=== PATIENT | male | born 1940 | race Caucasian/White ===

== ENCOUNTER 2018-02-26 13:05 | Emergency (ER) | payer MEDICARE, OTHER, SELFPAY | END 2018-02-26 18:33 | disposition home or self-care (01) | PROVIDERS: Emergency Provider Emergency Medicine; PCP Internal Medicine; Visit Provider Emergency Medicine | DX: Z45.02 Encounter for adjustment and management of automatic implantable cardiac defibrillator (principal) | CPT/HCPCS: 36000; 71020; 71046; 80053; 82962; 83880; 84484; 85025; 85610; 85730; 93005; 93010; 99058; 99285 ==

== ENCOUNTER → 2018-07-02 11:11 | Outpatient (CLI) | payer MEDICARE, OTHER, SELFPAY ==
[2018-07-02 12:42] LABS: Alanine Aminotransferase 20 IU/L (21-72); Albumin 4.4 g/dL (3.5-5.0); Albumin Globulin Ratio 1.5 (1.0-2.8); Alkaline Phosphatase 51 U/L (38-126); Aspartate Aminotransferase 18 IU/L (17-59); BUN Creatinine Ratio 22.7 (6-22); Blood Urea Nitrogen 34 mg/dL (9-20); Calcium 9.5 mg/dL (8.4-10.2); Carbon Dioxide 32 mmol/L (22-32); Chloride 99 mmol/L (98-107); Estimated Glomerular Filt Rate 45.1 mL/min (>60); Globulin 2.9 g/dL (1.7-4.1); Glucose 122 mg/dL (80-110); HEMOLYSIS 26 (0-50); Potassium 4.9 mmol/L (3.4-5.1); Sodium 142 mmol/L (137-145); Total Protein 7.3 g/dL (6.3-8.2)
[2018-07-02 13:06] LABS: Thyroid Stimulating Hormone 1.72 uIU/mL (0.47-4.68)
== END ==
PROVIDERS: PCP Internal Medicine; Visit Provider Internal Medicine Cardiovascular Disease
DX: I25.5 Ischemic cardiomyopathy (principal); R53.83 Other fatigue
CPT/HCPCS: 36415; 80053; 84443

== ENCOUNTER → 2018-07-06 11:05 | Outpatient (CLI) | payer MEDICARE, OTHER, SELFPAY ==
[2018-07-06 13:16] LABS: Prostate Specific Antigen 0.154 ng/mL (0.10-4.00)
== END ==
PROVIDERS: PCP Internal Medicine; Visit Provider Internal Medicine
DX: Z12.5 Encounter for screening for malignant neoplasm of prostate (principal)
CPT/HCPCS: 36415; 84153; G0103

== ENCOUNTER → 2018-09-04 16:08 | Outpatient (CLI) | payer MEDICARE, OTHER, SELFPAY ==
[2018-09-04 17:26] LABS: BUN Creatinine Ratio 23.6 (6-22); Blood Urea Nitrogen 33 mg/dL (9-20); Calcium 10.4 mg/dL (8.4-10.2); Carbon Dioxide 28 mmol/L (22-32); Chloride 97 mmol/L (98-107); Estimated Glomerular Filt Rate 48.8 mL/min (>60); Glucose 149 mg/dL (80-110); HEMOLYSIS 47 (0-50); Potassium 5.3 mmol/L (3.4-5.1); Sodium 143 mmol/L (137-145)
[2018-09-04 17:55] LABS: Thyroid Stimulating Hormone 1.32 uIU/mL (0.47-4.68)
== END ==
PROVIDERS: PCP Internal Medicine; Visit Provider Internal Medicine Cardiovascular Disease
DX: R53.83 Other fatigue (principal); I25.5 Ischemic cardiomyopathy
CPT/HCPCS: 36415; 80048; 84443

== ENCOUNTER → 2018-10-29 09:45 | Outpatient (CLI) | payer MEDICARE, OTHER, SELFPAY ==
[2018-10-29 11:13] LABS: Glucose 75 mg/dL (80-110)
[2018-10-30 15:48] LABS: C Peptide < 0.10 ng/mL (0.80-3.85)
== END ==
PROVIDERS: PCP Internal Medicine; Visit Provider Internal Medicine
DX: E11.9 Type 2 diabetes mellitus without complications (principal); I48.91 Unspecified atrial fibrillation
CPT/HCPCS: 36415; 82947; 84681

== ENCOUNTER 2018-11-15 10:21 | Emergency (ER) | payer MEDICARE, OTHER, SELFPAY ==
--- NOTE | 2018-11-15 10:28 | PC.NURSE ---
SPO2 at 89 and speaking in full sentences
[2018-11-15 10:47] VITALS: BP 110/68; PULSE 100; RESP 20; TEMP 36.5; O2SAT 95; BMI 27.8
[2018-11-15 11:30] VITALS: BP 118/99; PULSE 66; RESP 20; O2SAT 99
--- NOTE | 2018-11-15 11:45 | ED.SOB ---
HPI - SOB/Dyspnea General Chief Complaint: Shortness of Breath/Dyspnea Stated Complaint: difficulty breathing Time Seen by Provider: 11/15/18 11:17 Source: patient and family Mode of arrival: ambulatory Limitations: no limitations History of Present Illness Patient complains of shortness of breath for the last year after having an ablation for atrial fibrillation and ending amiodarone. He states that over the last several days, he has noticed that his shortness of breath is worse, both with lying down and with walking. He has not had any fever, but has had a mild cough. Patient denies any chest pain or abdominal pain. No nausea. Patient denies any back pain or headache. No new medications. He states that he has a defibrillator which was firing quite a bit, prior to his ablation, and so the sensitivity was adjusted. Now, patient states, it never fires. He states he is supposed to see his reaming machine tender in a few days to discuss a medication to be on for his atrial fibrillation, which has continued since the ablation. Related Data Home Medications Medication Instructions Recorded Confirmed FELODIPINE (Felodipine ER) 5 mg PO Q DAY #0 04/19/07 LISINOPRIL (Zestril / Prinivil) 20 mg PO Q DAY #0 01/20/08 [NOVOLOG] #0 01/20/08 [CQ10 ENZYME] 100 mg #0 07/15/12 rosuvastatin [Crestor] 10 mg PO QDAY #0 07/15/12 aspirin 81 mg OR Q DAY #0 12/11/17 clopidogrel [Plavix] 75 mg OR Q DAY #0 12/11/17 Previous Rx's Medication Instructions Recorded furosemide [Lasix] 60 mg PO BID #10 tab 11/15/18 Allergies Allergy/AdvReac Type Severity Reaction Status Date / Time amoxicillin Allergy Mild DIARRHEA Unverified 02/18/18 12:15 naproxen Allergy Mild DIARRHEA Unverified 02/18/18 12:15 Penicillins [PENICILLINS] Allergy Unknown Unverified 02/18/18 12:15 Review of Systems Review of Systems All systems reviewed & are unremarkable except as noted in HPI and below Constitutional Denies chills, Denies fever(s), Denies lethargy and Denies weakness Eyes Denies change in vision, Denies eye discharge, Denies irritation and Denies loss of vision ENT Ears, Nose, Mouth, and Throat: Denies change in voice, Denies neck pain and Denies sore throat Cardiovascular Denies chest pain, Denies irregular heart rhythm, Denies lightheadedness, Denies palpitations, Reports dyspnea, Reports dyspnea on exertion and Denies orthopnea Respiratory Denies cough, Reports dyspnea, Reports dyspnea on exertion and Denies wheezing Gastrointestinal Gastrointestinal: Denies abdominal pain, Denies change in bowel habits, Denies diarrhea, Denies nausea and Denies vomiting Genitourinary Denies hematuria, Denies flank pain, Denies urinary incontinence and Denies urinary urgency Musculoskeletal Denies neck pain Integumentary/Breasts Denies pruritus, Denies erythema, Denies rash and Denies wounds Neurologic Denies confusion, Denies loss of vision and Denies weakness Psychiatric Denies anxiety, Denies confusion, Denies depression, Denies homicidal ideation and Denies suicidal ideation Endocrine Denies palpitations Hematologic/Lymphatic Denies easy bruising Allergic/Immunologic Denies wheezing [facility] Medical History Obstructive sleep apnea of adult (Chronic) Primary insomnia (Chronic) Hyperlipidemia (Chronic) Hypertension (Chronic) Ischemic cardiomyopathy (Chronic) Obesity (Chronic) Snoring (Chronic) Type 2 diabetes mellitus (Chronic) Social History Smoking Status: Former smoker Exam Initial Vital Signs Initial Vital Signs: Vital Signs Temperature 97.7 F 11/15/18 10:47 Pulse Rate 100 H 11/15/18 10:47 Respiratory Rate 20 11/15/18 10:47 Blood Pressure 110/68 11/15/18 10:47 Pulse Oximetry 95 11/15/18 10:47 Const General: cooperative and well developed Nutritional Appearance: well nourished Orientation: alert, awake, oriented x3 and not confused [facility] Head: normocephalic and atraumatic Ears: external ears normal Nose: external nose normal and No nasal discharge Face and sinus: face symmetric and No dry mucous membranes Mouth: oral mucosae normal and moist mucous membranes Teeth and gingiva: dentition normal Eyes General: appearance normal, both eyes and all related structures Eyelids: eyelids normal Conjunctivae: conjunctivae normal Sclera: sclerae normal Pupils: PERRL EOM: EOM intact bilaterally Neck Neck: normal visual inspection, trachea midline, No lymphadenopathy, No midline deformity and No JVD Lymphatic: No lymphedema Chest Chest: normal inspection of the chest Resp Effort & Inspection: normal respiratory effort, able to speak in complete sentences, no respiratory distress and no use of accessory muscles Auscultation: clear to auscultation bilaterally, no rales, no rhonchi and no wheezes Cardio Rate: regular rate Rhythm: regular rhythm Heart Sounds: no click, no gallops, no murmurs and no rubs Pulses: normal peripheral pulses GI Inspection: non-distended Palpation: soft, no hepatosplenomegaly, No guarding, No pulsatile mass and No tender Auscultation: normal bowel sounds Back/Spine/Pelvis Back: No CVA tenderness Cervical Spine: cervical ROM normal and No pain with cervical ROM Thoracic/Lumbar Spine: thoracic and lumbar spine normal to inspection Skin General: no rashes or lesions noted, No jaundice and No petechiae Neuro General: alert, oriented x3, gait normal and no focal motor deficits Speech: speech normal Extrem General: full ROM, no clubbing, cyanosis or edema, no pedal edema and no calf tenderness Psych Appearance: well kempt Mental Status: mental status grossly normal Attitude: cooperative Thought Content: normal and suicidality Judgment: judgment good Course Course Narrative: Patient was worked up with labs, EKG, and chest x-ray, and found have an elevated BNP with some degree of pulmonary vascular congestion on chest x-ray. He was treated with 40 mg of Lasix IV in the emergency department, and did respond well with copious urination. Patient was found to be able to ambulate to and from the bathroom without difficulty, and without laboring of respirations. I did feel the patient stable for discharge home. I have discussed with patient and his family the need for an increased dose of his Lasix until he sees his reaming machine tender on Friday. At that point in time, they can evaluate whether this increased dose should be ongoing, or whether another plan is better. Patient and family are agreeable to this plan. Orders Ordered: ED Orders 11/15/18 11:45 XR chest 1V Stat B Type Natriuretic Peptide Stat Complete Blood Count AUTO DIFF Stat Comprehensive Metabolic Panel Stat Troponin & CK Cardiac Panel Stat EKG-12 Lead Stat Discontinued Medications Furosemide (Lasix) 40 mg IV NOW ONE Stop: 11/15/18 13:38 Last Admin: 11/15/18 13:54 Dose: 40 mg Vital Signs - 8 hr 11/15/18 13:10 11/15/18 14:00 11/15/18 14:30 Pulse Rate 85 93 H Respiratory Rate 21 19 Blood Pressure [Left Arm] 104/63 115/86 103/83 Pulse Oximetry 97 100 MDM - SOB/Dyspnea Medical Records Attestation: I reviewed the patient's medical records. Lab Data Attestation: I reviewed the patient's lab results. Result diagrams: 11/15/18 11:45 11/15/18 11:45 Lab Results 11/15/18 11/15/18 Range/Units 11:45 11:45 WBC 10.1 (4.5-11.0) X10^3/uL RBC 4.71 (4.5-5.9) X10^6/uL Hgb 14.5 (13.5-17.5) g/dL Hct 44.8 (41-53) % MCV 95.2 (80-100) fL MCH 30.7 (26-34) PG MCHC 32.3 (30-36) % RDW 14.3 (11.6-14.8) % Plt Count 263 (150-400) X10^3/uL Neut % (Auto) 69.5 (50-75) % Lymph % (Auto) 17.0 L (25-40) % [place] % (Auto) 11.6 (3-14) % Eos % (Auto) 0.9 L (2-4) % Baso % (Auto) 1.0 (0-2) % Neut # (Auto) 7000 (0841-2286) /uL Sodium 141 (137-145) mmol/L Potassium 5.1 (3.4-5.1) mmol/L Chloride 101 (98-107) mmol/L Carbon Dioxide 29 (22-32) mmol/L BUN 29 H (9-20) mg/dL Creatinine 1.60 H (0.66-1.25) mg/dL Estimated GFR 41.8 L (>60) mL/min BUN/Creatinine Ratio 18.1 (6-22) Glucose 291 H (80-110) mg/dL Calcium 9.4 (8.4-10.2) mg/dL Total Bilirubin 0.8 (0.2-1.3) mg/dL AST 20 (17-59) IU/L ALT 32 (21-72) IU/L Alkaline Phosphatase 70 (38-126) U/L Total Creatine Kinase 53 L (55-170) U/L CK-MB (CK-2) TNP CK-MB (CK-2) Rel Index TNP Troponin I 0.018 (0.01-0.034) ng/mL B-Natriuretic Peptide 1020 H (<100) Total Protein 7.8 (6.3-8.2) g/dL Albumin 4.5 (3.5-5.0) g/dL Globulin 3.3 (1.7-4.1) g/dL Albumin/Globulin Ratio 1.4 (1.0-2.8) Imaging Data Chest x-ray: Attestation: I personally reviewed and interpreted this imaging study as follows: My impression: Pulmonary vascular congestion Radiologist's impression: PROCEDURE: XR CHEST 1V INDICATIONS: dyspnea TECHNIQUE: One view of the chest was acquired. COMPARISON: [facility], , CHEST 2 VIEW, 02/26/2018, 13:09. FINDINGS: Surgical changes and devices: A left chest wall dual-lead AICD appears similar to the prior study. Lungs and pleura: There is a new small right pleural effusion with increased right basilar opacities compatible with atelectasis or developing consolidation. There is only vascular prominence suggestive of mild edema. Mediastinum: Mediastinal contours appear unchanged. Heart size is enlarged. Bones and chest wall: No suspicious bony lesions. Overlying soft tissues appear unremarkable. IMPRESSION: 1. Small right pleural effusion with right basilar opacities consistent with atelectasis or developing consolidation. 2. Pulmonary vascular prominence suggestive of mild edema. Dictated by: Amish Sanches M.D. on 11/15/2018 at 12:29 Approved by: Amish Sanches M.D. on 11/15/2018 at 12:31 ECG Data Attestation: I personally reviewed and interpreted this ECG as follows: (See below) Interpretation: Twelve lead EKG performed on November 15, 2018, at 11:20 a.m., as follows: Irregular ventricular rhythm with a rate of 108 beats per minute P waves undetectable QRS duration 152 millisecond QTC interval [address] T wave changes In summary, atrial fibrillation with rapid ventricular response; right bundle-branch block; inferior KS of indeterminate age; moderate T-wave abnormality; no STEMI. In summary, abnormal EKG as interpreted by ED MD. MDM Narrative Medical decision making narrative: I did not find evidence of an acute KS in this patient, and he has a follow-up appointment with his reaming machine tender in a few days. We have discussed that he should return to the emergency department, should his shortness of breath worse of, or should he develop chest pain. Discharge Plan Departure Patient Disposition: Home Clinical Impression: Congestive heart failure Discharge Date/Time: 11/15/18 15:42 Interventions: ED Discharge Assessment Last Done: 11/15/18 15:17 Instructions: DI for Heart Failure Activity Restrictions/Additional Instructions: Your labs showed that your heart function has weakened a bit. This is the cause of your feeling of shortness of breath. We will have you take a diuretic (water pill) to help with your fluid overload and shortness of breath. You will need to follow up with your doctor to discuss further treatment if your symptoms continue. Prescriptions: New furosemide [Lasix] 40 mg tablet 60 mg PO BID Qty: 10 RF: 0 Discontinued furosemide [Lasix] 20 MG tablet 20 mg PO QDAY 3 Days Qty: 0 RF: 0 No Action FELODIPINE (Felodipine ER) 5 mg PO Q DAY Qty: 0 RF: 0 LISINOPRIL (Zestril / Prinivil) 20 mg PO Q DAY Qty: 0 RF: 0 [NOVOLOG] Qty: 0 RF: 0 rosuvastatin [Crestor] 10 MG tablet 10 mg PO QDAY Qty: 0 RF: 0 [CQ10 ENZYME] 100 mg Qty: 0 RF: 0 aspirin 81 MG tablet,delayed release (DR/EC) 81 mg OR Q DAY Qty: 0 RF: 0 clopidogrel [Plavix] 75 MG tablet 75 mg OR Q DAY Qty: 0 RF: 0 Referrals: Garfield Dove MD [Primary Care Provider] - (Please follow up within the next week.)
--- NOTE | 2018-11-15 11:49 | ED_ITS ---
HPI - SOB/Dyspnea General Chief Complaint: Shortness of Breath/Dyspnea Stated Complaint: difficulty breathing Time Seen by Provider: 11/15/18 11:17 Source: patient and family Mode of arrival: ambulatory Limitations: no limitations History of Present Illness Patient complains of shortness of breath for the last year after having an ablation for atrial fibrillation and ending amiodarone. He states that over the last several days, he has noticed that his shortness of breath is worse, both with lying down and with walking. He has not had any fever, but has had a mild cough. Patient denies any chest pain or abdominal pain. No nausea. Patient denies any back pain or headache. No new medications. He states that he has a defibrillator which was firing quite a bit, prior to his ablation, and so the sensitivity was adjusted. Now, patient states, it never fires. He states he is supposed to see his multiplex operator in a few days to discuss a medication to be on for his atrial fibrillation, which has continued since the ablation. Related Data Home Medications Medication Instructions Recorded Confirmed FELODIPINE (Felodipine ER) 5 mg PO Q DAY #0 04/19/07 LISINOPRIL (Zestril / Prinivil) 20 mg PO Q DAY #0 01/20/08 [NOVOLOG] #0 01/20/08 [CQ10 ENZYME] 100 mg #0 07/15/12 rosuvastatin [Crestor] 10 mg PO QDAY #0 07/15/12 aspirin 81 mg OR Q DAY #0 12/11/17 clopidogrel [Plavix] 75 mg OR Q DAY #0 12/11/17 Previous Rx's Medication Instructions Recorded furosemide [Lasix] 60 mg PO BID #10 tab 11/15/18 Allergies Allergy/AdvReac Type Severity Reaction Status Date / Time amoxicillin Allergy Mild DIARRHEA Unverified 02/18/18 12:15 naproxen Allergy Mild DIARRHEA Unverified 02/18/18 12:15 Penicillins [PENICILLINS] Allergy Unknown Unverified 02/18/18 12:15 Review of Systems Review of Systems All systems reviewed & are unremarkable except as noted in HPI and below Constitutional Denies chills, Denies fever(s), Denies lethargy and Denies weakness Eyes Denies change in vision, Denies eye discharge, Denies irritation and Denies loss of vision ENT Ears, Nose, Mouth, and Throat: Denies change in voice, Denies neck pain and Denies sore throat Cardiovascular Denies chest pain, Denies irregular heart rhythm, Denies lightheadedness, Denies palpitations, Reports dyspnea, Reports dyspnea on exertion and Denies orthopnea Respiratory Denies cough, Reports dyspnea, Reports dyspnea on exertion and Denies wheezing Gastrointestinal Gastrointestinal: Denies abdominal pain, Denies change in bowel habits, Denies diarrhea, Denies nausea and Denies vomiting Genitourinary Denies hematuria, Denies flank pain, Denies urinary incontinence and Denies urinary urgency Musculoskeletal Denies neck pain Integumentary/Breasts Denies pruritus, Denies erythema, Denies rash and Denies wounds Neurologic Denies confusion, Denies loss of vision and Denies weakness Psychiatric Denies anxiety, Denies confusion, Denies depression, Denies homicidal ideation and Denies suicidal ideation Endocrine Denies palpitations Hematologic/Lymphatic Denies easy bruising Allergic/Immunologic Denies wheezing [facility] Medical History Obstructive sleep apnea of adult (Chronic) Primary insomnia (Chronic) Hyperlipidemia (Chronic) Hypertension (Chronic) Ischemic cardiomyopathy (Chronic) Obesity (Chronic) Snoring (Chronic) Type 2 diabetes mellitus (Chronic) Social History Smoking Status: Former smoker Exam Initial Vital Signs Initial Vital Signs: Vital Signs Temperature 97.7 F 11/15/18 10:47 Pulse Rate 100 H 11/15/18 10:47 Respiratory Rate 20 11/15/18 10:47 Blood Pressure 110/68 11/15/18 10:47 Pulse Oximetry 95 11/15/18 10:47 Const General: cooperative and well developed Nutritional Appearance: well nourished Orientation: alert, awake, oriented x3 and not confused [facility] Head: normocephalic and atraumatic Ears: external ears normal Nose: external nose normal and No nasal discharge Face and sinus: face symmetric and No dry mucous membranes Mouth: oral mucosae normal and moist mucous membranes Teeth and gingiva: dentition normal Eyes General: appearance normal, both eyes and all related structures Eyelids: eyelids normal Conjunctivae: conjunctivae normal Sclera: sclerae normal Pupils: PERRL EOM: EOM intact bilaterally Neck Neck: normal visual inspection, trachea midline, No lymphadenopathy, No midline deformity and No JVD Lymphatic: No lymphedema Chest Chest: normal inspection of the chest Resp Effort & Inspection: normal respiratory effort, able to speak in complete sentences, no respiratory distress and no use of accessory muscles Auscultation: clear to auscultation bilaterally, no rales, no rhonchi and no wheezes Cardio Rate: regular rate Rhythm: regular rhythm Heart Sounds: no click, no gallops, no murmurs and no rubs Pulses: normal peripheral pulses GI Inspection: non-distended Palpation: soft, no hepatosplenomegaly, No guarding, No pulsatile mass and No tender Auscultation: normal bowel sounds Back/Spine/Pelvis Back: No CVA tenderness Cervical Spine: cervical ROM normal and No pain with cervical ROM Thoracic/Lumbar Spine: thoracic and lumbar spine normal to inspection Skin General: no rashes or lesions noted, No jaundice and No petechiae Neuro General: alert, oriented x3, gait normal and no focal motor deficits Speech: speech normal Extrem General: full ROM, no clubbing, cyanosis or edema, no pedal edema and no calf tenderness Psych Appearance: well kempt Mental Status: mental status grossly normal Attitude: cooperative Thought Content: normal and suicidality Judgment: judgment good Course Course Narrative: Patient was worked up with labs, EKG, and chest x-ray, and found have an elevated BNP with some degree of pulmonary vascular congestion on chest x-ray. He was treated with 40 mg of Lasix IV in the emergency department , and did respond well with copious urination. Patient was found to be able to ambulate to and from the bathroom without difficulty, and without laboring of respirations. I did feel the patient stable for discharge home. I have discussed with patient and his family the need for an increased dose of his Lasix until he sees his multiplex operator on Friday. At that point in time, they can evaluate whether this increased dose should be ongoing, or whether another plan is better. Patient and family are agreeable to this plan. Orders Ordered: ED Orders 11/15/18 11:45 XR chest 1V Stat B Type Natriuretic Peptide Stat Complete Blood Count AUTO DIFF Stat Comprehensive Metabolic Panel Stat Troponin & CK Cardiac Panel Stat EKG-12 Lead Stat Discontinued Medications Furosemide (Lasix) 40 mg IV NOW ONE Stop: 11/15/18 13:38 Last Admin: 11/15/18 13:54 Dose: 40 mg Vital Signs - 8 hr 11/15/18 13:10 11/15/18 14:00 11/15/18 14:30 Pulse Rate 85 93 H Respiratory Rate 21 19 Blood Pressure [Left Arm] 104/63 115/86 103/83 Pulse Oximetry 97 100 MDM - SOB/Dyspnea Medical Records Attestation: I reviewed the patient's medical records. Lab Data Attestation: I reviewed the patient's lab results. Result diagrams: 11/15/18 11:45 11/15/18 11:45 Lab Results 11/15/18 11/15/18 Range/Units 11:45 11:45 WBC 10.1 (4.5-11.0) X10^3/uL RBC 4.71 (4.5-5.9) X10^6/uL Hgb 14.5 (13.5-17.5) g/dL Hct 44.8 (41-53) % MCV 95.2 (80-100) fL MCH 30.7 (26-34) PG MCHC 32.3 (30-36) % RDW 14.3 (11.6-14.8) % Plt Count 263 (150-400) X10^3/uL Neut % (Auto) 69.5 (50-75) % Lymph % (Auto) 17.0 L (25-40) % [place] % (Auto) 11.6 (3-14) % Eos % (Auto) 0.9 L (2-4) % Baso % (Auto) 1.0 (0-2) % Neut # (Auto) 7000 (4125-6424) /uL Sodium 141 (137-145) mmol/L Potassium 5.1 (3.4-5.1) mmol/L Chloride 101 (98-107) mmol/L Carbon Dioxide 29 (22-32) mmol/L BUN 29 H (9-20) mg/dL Creatinine 1.60 H (0.66-1.25) mg/dL Estimated GFR 41.8 L (>60) mL/min BUN/Creatinine Ratio 18.1 (6-22) Glucose 291 H (80-110) mg/dL Calcium 9.4 (8.4-10.2) mg/dL Total Bilirubin 0.8 (0.2-1.3) mg/dL AST 20 (17-59) IU/L ALT 32 (21-72) IU/L Alkaline Phosphatase 70 (38-126) U/L Total Creatine Kinase 53 L (55-170) U/L CK-MB (CK-2) TNP CK-MB (CK-2) Rel Index TNP Troponin I 0.018 (0.01-0.034) ng/mL B-Natriuretic Peptide 1020 H (<100) Total Protein 7.8 (6.3-8.2) g/dL Albumin 4.5 (3.5-5.0) g/dL Globulin 3.3 (1.7-4.1) g/dL Albumin/Globulin Ratio 1.4 (1.0-2.8) Imaging Data Chest x-ray: Attestation: I personally reviewed and interpreted this imaging study as follows: My impression: Pulmonary vascular congestion Radiologist's impression: PROCEDURE: XR CHEST 1V INDICATIONS: dyspnea TECHNIQUE: One view of the chest was acquired. COMPARISON: [facility], , CHEST 2 VIEW, 02/26/2018, 13:09. FINDINGS: Surgical changes and devices: A left chest wall dual-lead AICD appears similar to the prior study. Lungs and pleura: There is a new small right pleural effusion with increased right basilar opacities compatible with atelectasis or developing consolidation. There is only vascular prominence suggestive of mild edema. Mediastinum: Mediastinal contours appear unchanged. Heart size is enlarged. Bones and chest wall: No suspicious bony lesions. Overlying soft tissues appear unremarkable. IMPRESSION: 1. Small right pleural effusion with right basilar opacities consistent with atelectasis or developing consolidation. 2. Pulmonary vascular prominence suggestive of mild edema. Dictated by: Amish Sanches M.D. on 11/15/2018 at 12:29 Approved by: Amish Sanches M.D. on 11/15/2018 at 12:31 ECG Data Attestation: I personally reviewed and interpreted this ECG as follows: (See below) Interpretation: Twelve lead EKG performed on November 15, 2018, at 11:20 a.m., as follows: Irregular ventricular rhythm with a rate of 108 beats per minute P waves undetectable QRS duration 152 millisecond QTC interval [address] T wave changes In summary, atrial fibrillation with rapid ventricular response; right bundle- branch block; inferior CO of indeterminate age; moderate T-wave abnormality; no STEMI. In summary, abnormal EKG as interpreted by ED MD. MDM Narrative Medical decision making narrative: I did not find evidence of an acute [place] in this patient, and he has a follow-up appointment with his multiplex operator in a few days. We have discussed that he should return to the emergency department, should his shortness of breath worse of, or should he develop chest pain. Discharge Plan Departure Patient Disposition: Home Clinical Impression: Congestive heart failure Discharge Date/Time: 11/15/18 15:42 Interventions: ED Discharge Assessment Last Done: 11/15/18 15:17 Instructions: DI for Heart Failure Activity Restrictions/Additional Instructions: Your labs showed that your heart function has weakened a bit. This is the cause of your feeling of shortness of breath. We will have you take a diuretic (water pill) to help with your fluid overload and shortness of breath. You will need to follow up with your doctor to discuss further treatment if your symptoms continue. Prescriptions: New furosemide [Lasix] 40 mg tablet 60 mg PO BID Qty: 10 RF: 0 Discontinued furosemide [Lasix] 20 MG tablet 20 mg PO QDAY 3 Days Qty: 0 RF: 0 No Action FELODIPINE (Felodipine ER) 5 mg PO Q DAY Qty: 0 RF: 0 LISINOPRIL (Zestril / Prinivil) 20 mg PO Q DAY Qty: 0 RF: 0 [NOVOLOG] Qty: 0 RF: 0 rosuvastatin [Crestor] 10 MG tablet 10 mg PO QDAY Qty: 0 RF: 0 [CQ10 ENZYME] 100 mg Qty: 0 RF: 0 aspirin 81 MG tablet,delayed release (DR/EC) 81 mg OR Q DAY Qty: 0 RF: 0 clopidogrel [Plavix] 75 MG tablet 75 mg OR Q DAY Qty: 0 RF: 0 Referrals: Garfield Dove MD [Primary Care Provider] - (Please follow up within the next week.)
[2018-11-15 11:55] LABS: Add Manual Diff / Slide Review NO; Eosinophils Percent Auto 0.9 % (2-4); Hematocrit 44.8 % (41-53); Hemoglobin 14.5 g/dL (13.5-17.5); Mean Corpuscular HGB Conc 32.3 % (30-36); Mean Corpuscular Hemoglobin 30.7 PG (26-34); Mean Corpuscular Volume 95.2 fL (80-100); Monocytes Percent Auto 11.6 % (3-14); Neutrophils Absolute Auto 7000 /uL (1500-7000); Neutrophils Percent Auto 69.5 % (50-75); Platelet Count 263 X10^3/uL (150-400); Red Blood Cell Count 4.71 X10^6/uL (4.5-5.9); Red Cell Distribution Width 14.3 % (11.6-14.8); White Blood Cell Count 10.1 X10^3/uL (4.5-11.0)
[2018-11-15 12:03] VITALS: BP 118/78; PULSE 86; RESP 21; O2SAT 98
[2018-11-15 12:05] LABS: Alanine Aminotransferase 32 IU/L (21-72); Albumin 4.5 g/dL (3.5-5.0); Albumin Globulin Ratio 1.4 (1.0-2.8); Alkaline Phosphatase 70 U/L (38-126); Aspartate Aminotransferase 20 IU/L (17-59); BUN Creatinine Ratio 18.1 (6-22); Bilirubin Total 0.8 mg/dL (0.2-1.3); Blood Urea Nitrogen 29 mg/dL (9-20); Calcium 9.4 mg/dL (8.4-10.2); Carbon Dioxide 29 mmol/L (22-32); Chloride 101 mmol/L (98-107); Creatine Kinase 53 U/L (55-170); Estimated Glomerular Filt Rate 41.8 mL/min (>60); Globulin 3.3 g/dL (1.7-4.1); Glucose 291 mg/dL (80-110); HEMOLYSIS < 15 (0-50); Potassium 5.1 mmol/L (3.4-5.1); Sodium 141 mmol/L (137-145); Total Protein 7.8 g/dL (6.3-8.2)
[2018-11-15 12:12] LABS: B Type Natriuretic Peptide 1020 (<100)
[2018-11-15 12:17] LABS: Troponin I 0.018 ng/mL (0.01-0.034)
[2018-11-15 13:10] VITALS: BP 104/63; PULSE 85; RESP 21; O2SAT 97
[2018-11-15] MEDS: FUROSEMIDE 40 MG/4 ML VIAL IV (13:54)
[2018-11-15 14:00] VITALS: BP 115/86; PULSE 93; RESP 19; O2SAT 100
[2018-11-15 14:30] VITALS: BP 103/83
== END 2018-11-15 15:42 | disposition home or self-care (01) ==
PROVIDERS: Emergency Provider Emergency Medicine; PCP Internal Medicine
DX: L02.413 Cutaneous abscess of right upper limb (principal)
CPT/HCPCS: 36415; 36591; 71045; 80053; 82550; 83880; 84484; 85025; 93005; 93041; 99283; J1940

== ENCOUNTER 2018-11-18 13:41 | Inpatient (IN) | payer MEDICARE, OTHER, SELFPAY ==
[2018-11-18] VITALS (16 sets, daily range): BP systolic 105–159; BP diastolic 60–134; PULSE 84–152; RESP 18–35; TEMP 36.5–36.8; O2SAT 93–100; BMI 28.7
--- NOTE | 2018-11-18 13:43 | DI.RAD.S_ITS ---
PROCEDURE: XR CHEST 1V INDICATIONS: defib keeps firing TECHNIQUE: One view of the chest was acquired. COMPARISON: [facility], , CHEST 2 VIEW, 02/26/2018, 13:09. [facility], , XR CHEST 1V, 11/15/2018, 12:08. FINDINGS: Surgical changes and devices: Cardiac pacemaker is noted with leads in expected position. Lungs and pleura: Probable small bilateral effusions. Mildly increased pulmonary sclerae. No pneumothorax. Mediastinum: Mediastinal contours appear normal. Heart size is is moderately increased. Bones and chest wall: No suspicious bony lesions. Overlying soft tissues appear unremarkable. IMPRESSION: Moderate cardiomegaly with mildly increased pulmonary vascularity and probable small pleural effusions suggesting mild CHF. Dictated by: Evelia Burr M.D. on 11/18/2018 at 13:59 Approved by: Evelia Burr M.D. on 11/18/2018 at 14:02
--- NOTE | 2018-11-18 13:45 | ED.ARRPALP ---
HPI - Arrhythmia/Palpitations General Chief Complaint: Chest Pain Stated Complaint: Defib shocking Time Seen by Provider: 11/18/18 13:42 Source: patient and old records reviewed Mode of arrival: EMS Limitations: no limitations History of Present Illness HPI narrative: This is an 78-year-old male comes to the emergency department with complaint of multiple shocks from his defibrillator states he has probably had 14 or 15 shocks so far today. 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 Patient has a history with his defer later. He states it has been many years since he has had a shock he did have an ablation on November 11 [facility] and they stopped his amiodarone. They did not place him on any other medications as replacement. They were stopping the amiodarone secondary to pulmonary issues. Patient states that he has had problems where his defibrillator has shocked inappropriately. Patient states that he has been a little bit of short of breath in the last couple days. He was here a couple days ago for evaluation. He denies any chest pressure or pain except with shock. Patient denies any nausea, no vomiting. He has not been diaphoretic. He states this started while he was getting out of the shower this afternoon. Patient has not had any major swelling in his lower extremities. Related Data Home Medications Medication Instructions Recorded Confirmed lisinopril 40 mg PO QAM #0 01/20/08 11/18/18 coenzyme Q10 [CoQ-10] 100 mg PO DAILY #0 07/15/12 11/18/18 rosuvastatin [Crestor] 10 mg PO QPM #0 07/15/12 11/18/18 aspirin 81 mg OR QPM #0 12/11/17 11/18/18 apixaban [Eliquis] 2.5 mg PO BID 11/18/18 11/18/18 docusate sodium 100 mg PO DAILY 11/18/18 11/18/18 [id number] serr 1 tab PO BID 11/18/18 11/18/18 [Osteo Bi-Flex (5-Loxin)] insulin aspart U-100 [Novolog 40 - 50 units SUBCUT BID 11/18/18 11/18/18 U-100 Insulin aspart] insulin glargine [Lantus U-100 25 units SUBCUT BID 11/18/18 11/18/18 Insulin] lisinopril 20 mg PO QPM 11/18/18 11/18/18 metoprolol succinate 100 mg PO BID 11/18/18 11/18/18 Previous Rx's Medication Instructions Recorded furosemide [Lasix] 60 mg PO BID #10 tab 11/15/18 Allergies Allergy/AdvReac Type Severity Reaction Status Date / Time amoxicillin Allergy Mild DIARRHEA Verified 11/18/18 14:25 naproxen Allergy Mild DIARRHEA Verified 11/18/18 14:25 Penicillins [PENICILLINS] Allergy Unknown Verified 11/18/18 14:25 Review of Systems Review of Systems ROS Unobtainable: All systems reviewed & are unremarkable except as noted in HPI and below Constitutional Denies chills, Denies fever(s), Denies lethargy and Denies weakness Cardiovascular Denies chest pain (does have pain with AICD shock.), Denies irregular heart rhythm, Denies lightheadedness, Denies palpitations, Denies dyspnea, Denies dyspnea on exertion and Denies orthopnea Respiratory Denies cough, Denies dyspnea, Denies dyspnea on exertion and Denies wheezing Gastrointestinal Gastrointestinal: Denies abdominal pain, Denies change in bowel habits, Denies diarrhea, Denies nausea and Denies vomiting Genitourinary Denies hematuria, Denies flank pain, Denies urinary incontinence and Denies urinary urgency Neurologic Denies weakness Endocrine Denies palpitations Allergic/Immunologic Denies wheezing [facility] Medical History Obstructive sleep apnea of adult (Chronic) Primary insomnia (Chronic) Hyperlipidemia (Chronic) Hypertension (Chronic) Ischemic cardiomyopathy (Chronic) Obesity (Chronic) Snoring (Chronic) Type 2 diabetes mellitus (Chronic) Social History Smoking Status: Former smoker Exam Narrative Exam Narrative: GENERAL: Alert and oriented x three, well nourished, well appearing male in moderate distress. HEENT: Head normocephalic, atraumatic, EOMI, pupils reactive, face symmetric, moist mucous membranes NECK: Supple, full range of motion CARDIOVASCULAR: Tachycardic irregular rate and rhythm without murmurs, rubs or gallops. No JVD. RESPIRATORY: Breath sounds equal bilaterally, no wheezes rales or rhonchi. No tachypnea, no accessory muscle use. ABDOMEN: Soft, nontender. Normoactive bowel sounds all 4 quadrants. No guarding or rebound, rigidity, no mass : No CVA tenderness EXTREMITIES: Normal range of motion, no clubbing or edema. Neurovascularly intact. 2+ pulses bilateral upper and lower extremities. NEUROLOGICAL: Cranial nerves II through XII grossly intact. Moving all extremities SKIN: Warm, dry, no petechiae, no rashes or lesions. Initial Vital Signs Initial Vital Signs: Vital Signs Pulse Rate 152 H 11/18/18 13:41 Respiratory Rate 20 11/18/18 13:41 Blood Pressure 159/134 H 11/18/18 13:41 Pulse Oximetry 95 11/18/18 13:41 Course Orders Ordered: ED Orders 11/18/18 13:43 XR chest 1V Stat EKG-12 Lead Stat 11/18/18 13:49 B Type Natriuretic Peptide Stat Basic Metabolic Panel Stat Complete Blood Count AUTO DIFF Stat Magnesium Stat Partial Thromboplastin Time Stat Prothrombin Time INR Stat Thyroid Stimulating Hormone Stat Troponin & CK Cardiac Panel Stat Sodium Chloride (Normal Saline 0.9%) 1,000 mls @ 150 mls/hr IV CONT STEPHANI Last Infusion: 11/18/18 15:29 Dose: 100 mls/hr Admin: 11/18/18 13:49 Dose: 150 mls/hr Amiodarone HCl/Dextrose (Nexterone) 360 mg in 200 mls @ 33.333 mls/hr IV NOW ONE; Protocol Stop: 11/18/18 19:50 Last Titration: 11/18/18 14:09 Dose: 0 mls/hr, 0 mls/hr Admin: 11/18/18 13:56 Dose: 33.333 mls/hr, 33.33 mls/hr Amiodarone HCl/Dextrose (Nexterone) 360 mg in 200 mls @ 33.333 mls/hr IV NOW ONE; Protocol Stop: 11/18/18 23:36 Amiodarone HCl/Dextrose (Nexterone) 360 mg in 200 mls @ 33.333 mls/hr IV NOW ONE; Protocol Stop: 11/19/18 01:23 Amiodarone HCl/Dextrose (Nexterone) 150 mg in 100 mls @ 600 mls/hr IV NOW ONE; Protocol Stop: 11/18/18 19:33 Discontinued Medications Adenosine (Adenocard) 6 mg IV NOW ONE Stop: 11/18/18 14:06 Last Admin: 11/18/18 14:09 Dose: 6 mg Adenosine (Adenocard) 12 mg IV NOW ONE Stop: 11/18/18 14:11 Last Admin: 11/18/18 14:11 Dose: 12 mg Aspirin (Aspirin Chew) 324 mg PO NOW ONE Stop: 11/18/18 13:44 Last Admin: 11/18/18 13:54 Dose: 324 mg Fentanyl (Sublimaze) 50 mcg IV NOW ONE Stop: 11/18/18 13:52 Last Admin: 11/18/18 13:52 Dose: 50 mcg Furosemide (Lasix) 40 mg IV NOW ONE Stop: 11/18/18 18:21 Last Admin: 11/18/18 18:33 Dose: 40 mg Amiodarone HCl/Dextrose (Nexterone) 150 mg in 100 mls @ 600 mls/hr IV NOW ONE Stop: 11/18/18 13:52 Last Infusion: 11/18/18 13:49 Dose: 0 mls/hr Admin: 11/18/18 13:48 Dose: 600 mls/hr Lorazepam (Ativan) 0.5 mg IV NOW ONE Stop: 11/18/18 13:45 Last Admin: 11/18/18 14:02 Dose: 0.5 mg Vital Signs - 8 hr 11/18/18 13:41 11/18/18 14:00 11/18/18 14:30 Pulse Rate 152 H 116 H 105 H Respiratory Rate 20 20 22 Blood Pressure 159/134 H Blood Pressure [Right Arm] 136/114 H 145/80 H Pulse Oximetry 95 96 99 11/18/18 15:00 11/18/18 15:50 11/18/18 16:13 Pulse Rate 99 H 85 88 Respiratory Rate 35 H 19 18 Blood Pressure Blood Pressure [Right Arm] 127/66 109/64 105/70 Pulse Oximetry 99 99 11/18/18 17:07 11/18/18 18:21 Pulse Rate 94 H 88 Respiratory Rate 22 19 Blood Pressure Blood Pressure [Right Arm] 112/73 123/82 Pulse Oximetry 99 100 MDM - Arrhythmia/Palpitations Lab Data Attestation: I reviewed the patient's lab results. Result diagrams: 11/18/18 13:49 11/18/18 13:49 Lab Results 11/18/18 11/18/18 11/18/18 Range/Units 13:49 13:49 13:49 WBC 14.1 H (4.5-11.0) X10^3/uL RBC 4.75 (4.5-5.9) X10^6/uL Hgb 14.3 (13.5-17.5) g/dL Hct 44.6 (41-53) % MCV 94.0 (80-100) fL MCH 30.1 (26-34) PG MCHC 32.1 (30-36) % RDW 14.3 (11.6-14.8) % Plt Count 262 (150-400) X10^3/uL Neut % (Auto) 66.3 (50-75) % Lymph % (Auto) 22.1 L (25-40) % [place] % (Auto) 10.6 (3-14) % Eos % (Auto) 0.4 L (2-4) % Baso % (Auto) 0.6 (0-2) % Neut # (Auto) 9400 H (8340-2971) /uL PT 14.9 H (10.1-12.7) SECONDS INR 1.3 (0.9-1.3) APTT 31 (26.4-36.2) SECONDS Sodium 139 (137-145) mmol/L Potassium 4.1 (3.4-5.1) mmol/L Chloride 99 (98-107) mmol/L Carbon Dioxide 27 (22-32) mmol/L BUN 27 H (9-20) mg/dL Creatinine 1.80 H (0.66-1.25) mg/dL Estimated GFR 36.5 L (>60) mL/min BUN/Creatinine Ratio 15.0 (6-22) Glucose 289 H (80-110) mg/dL Calcium 9.7 (8.4-10.2) mg/dL Magnesium 2.1 (1.6-2.3) mg/dL Total Creatine Kinase 115 (55-170) U/L CK-MB (CK-2) 2.39 H (<2.37) ng/mL CK-MB (CK-2) Rel Index 2.1 (1.5-5.0) % Troponin I 0.023 (0.01-0.034) ng/mL B-Natriuretic Peptide (<100) TSH (0.47-4.68) uIU/mL 11/18/18 11/18/18 Range/Units 13:49 13:49 WBC (4.5-11.0) X10^3/uL RBC (4.5-5.9) X10^6/uL Hgb (13.5-17.5) g/dL Hct (41-53) % MCV (80-100) fL MCH (26-34) PG MCHC (30-36) % RDW (11.6-14.8) % Plt Count (150-400) X10^3/uL Neut % (Auto) (50-75) % Lymph % (Auto) (25-40) % [place] % (Auto) (3-14) % Eos % (Auto) (2-4) % Baso % (Auto) (0-2) % Neut # (Auto) (3571-4348) /uL PT (10.1-12.7) SECONDS INR (0.9-1.3) APTT (26.4-36.2) SECONDS Sodium (137-145) mmol/L Potassium (3.4-5.1) mmol/L Chloride (98-107) mmol/L Carbon Dioxide (22-32) mmol/L BUN (9-20) mg/dL Creatinine (0.66-1.25) mg/dL Estimated GFR (>60) mL/min BUN/Creatinine Ratio (6-22) Glucose (80-110) mg/dL Calcium (8.4-10.2) mg/dL Magnesium (1.6-2.3) mg/dL Total Creatine Kinase (55-170) U/L CK-MB (CK-2) (<2.37) ng/mL CK-MB (CK-2) Rel Index (1.5-5.0) % Troponin I (0.01-0.034) ng/mL B-Natriuretic Peptide 653 H (<100) TSH 2.13 (0.47-4.68) uIU/mL Imaging Data Chest x-ray: Radiologist's impression: [address] [address] XRay Report Signed Patient: Raul Ray MR#: [id number] : 1940 Acct:[id number] Age/Sex: 78 / M Date of Service: 11/18/18 Loc: ED Accession Number: [id number] Procedure: XR chest 1V Ordering Provider: Milana Lucio D.O. PROCEDURE: XR CHEST 1V INDICATIONS: defib keeps firing TECHNIQUE: One view of the chest was acquired. COMPARISON: [facility], , CHEST 2 VIEW, 02/26/2018, 13:09. [facility], CR, XR CHEST 1V, 11/15/2018, 12:08. FINDINGS: Surgical changes and devices: Cardiac pacemaker is noted with leads in expected position. Lungs and pleura: Probable small bilateral effusions. Mildly increased pulmonary sclerae. No pneumothorax. Mediastinum: Mediastinal contours appear normal. Heart size is is moderately increased. Bones and chest wall: No suspicious bony lesions. Overlying soft tissues appear unremarkable. IMPRESSION: Moderate cardiomegaly with mildly increased pulmonary vascularity and probable small pleural effusions suggesting mild CHF. Dictated by: Evelia Burr M.D. on 11/18/2018 at 13:59 Approved by: Evelia Burr M.D. on 11/18/2018 at 14:02 ECG Data Attestation: I personally reviewed and interpreted this ECG as follows: Interpretation: Patient appears to have wide QRS with irregular rhythm Patient's has irregular rhythm. Patient has bundle branch block. He also has possible ST depression. Rate is 150, QRS is 156 with a QTC of 346. Patient had a repeat multiple EKGs while giving adenosine which does show spacing out what continued widened QRS he was given adenosine which did show some spacing patient continues to have a widened QRS but does not look like a true V-tach. Patient's telemetry here in the department and with EMS does appear to have some episodes of looked like ventricular tachycardia. It appears that patient may be discharging during or prior to these episodes but it is unclear from the EMS telemetry strip MDM Narrative Medical decision making narrative: This an 78-year-old male who comes in with multiple ICD shocks. Contacted Cardiology and spoke with kimmy Aldana at [facility] she reviewed patient's EKG and telemetry strips. Patient had already received 150 mg bolus of amiodarone. We discussed that he continues to be tachycardic. She asked that we give adenosine and we did do 6 and 12 mg doses which did show a very short period of slowing but no other changes. This was also transmitted to Cardiology which they reviewed. Patient placed interrogating device on and the images were reviewed by Cardiology. There was some delay as they were involved in a cardiac catheterization. They feel that patient is having inappropriate firing of his defibrillator. He appears to have atrial fibrillation as well as some flutter. They recommended amiodarone drip and patient to be transported to [facility] where his EP doctor Qian is located. [facility] does not have any beds available. We spoke with [facility] where patient had an ablation about a year ago. I spoke with their EP who recommended no amiodarone drip at this time and no other medications as patient's heart rate is currently in the 80s although continues to be in atrial fibrillation. [facility] did not have a bed available and we re-contacted Cardiology and spoke with Dr. Potter. On his recommendations to continue the amiodarone drip after repeat bolus of 150 mg, did not continue any Lasix. Plan is to admit the patient overnight into our ICU and have him transferred to [facility] when a bed becomes available. I spoke with the hospitalist, she accepts we discussed cardiology's recommendations. Patient and family all aware of the plan. Patient had 3 shocks here in the department when he initially arrived and has not had any further, he does have a magnet in place with his defibrillator turned off. Patient has not had any other chest pain or shortness of breath, no nausea or diaphoresis. He states he was asymptomatic prior to the defibrillator firing. He does have some pain directly around the defibrillator itself. Patient's lab work shows that his BNP is improving after 3 days of Lasix at 60 mg twice daily, it is down from 1200 to 600 range. His troponin is negative at 0.023, chest x-ray shows some mild pulmonary edema/pleural effusion and cardiomegaly. Patient's renal function is at 1.8 which is a slight elevation from his normal which is about a baseline of 1.4-1.6. He has an elevated white count no other clear source of infection and this could possibly be reactive. Code status was reviewed with the patient he is full code. [facility] was re-contacted they state that beds will not likely be available till tomorrow. Critical Care Time Critical Care Time: Yes Total Critical Care Time: 180 Attestation: The high probability of a clinically significant, sudden or life threatening deterioration of the [cardiac] system(s) required my full and direct attention, intervention and personal management. The aggregate critical care time was [180] minutes. 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
[2018-11-18] MEDS: AMIODARONE 150 MG/100 ML PIGGYBACK 600 MG IV ×2 (13:48→19:34)
[2018-11-18] MEDS: SODIUM CHLORIDE 0.9% 1,000 ML 150 ML IV (13:49)
--- NOTE | 2018-11-18 13:50 | ED_ITS ---
HPI - Arrhythmia/Palpitations General Chief Complaint: Chest Pain Stated Complaint: Defib shocking Time Seen by Provider: 11/18/18 13:42 Source: patient and old records reviewed Mode of arrival: EMS Limitations: no limitations History of Present Illness HPI narrative: This is an 78-year-old male comes to the emergency department with complaint of multiple shocks from his defibrillator states he has probably had 14 or 15 shocks so far today. He is actually on his way to see his PCP/ quality review specialist today. Patient has a history with his defer later. He states it has been many years since he has had a shock he did have an ablation on November 11 [facility] and they stopped his amiodarone. They did not place him on any other medications as replacement. They were stopping the amiodarone secondary to pulmonary issues. Patient states that he has had problems where his defibrillator has shocked inappropriately. Patient states that he has been a little bit of short of breath in the last couple days. He was here a couple days ago for evaluation. He denies any chest pressure or pain except with shock. Patient denies any nausea, no vomiting. He has not been diaphoretic. He states this started while he was getting out of the shower this afternoon. Patient has not had any major swelling in his lower extremities. Related Data Home Medications Medication Instructions Recorded Confirmed lisinopril 40 mg PO QAM #0 01/20/08 11/18/18 coenzyme Q10 [CoQ-10] 100 mg PO DAILY #0 07/15/12 11/18/18 rosuvastatin [Crestor] 10 mg PO QPM #0 07/15/12 11/18/18 aspirin 81 mg OR QPM #0 12/11/17 11/18/18 apixaban [Eliquis] 2.5 mg PO BID 11/18/18 11/18/18 docusate sodium 100 mg PO DAILY 11/18/18 11/18/18 [id number] serr 1 tab PO BID 11/18/18 11/18/18 [Osteo Bi-Flex (5-Loxin)] insulin aspart U-100 [Novolog 40 - 50 units SUBCUT BID 11/18/18 11/18/18 U-100 Insulin aspart] insulin glargine [Lantus U-100 25 units SUBCUT BID 11/18/18 11/18/18 Insulin] lisinopril 20 mg PO QPM 11/18/18 11/18/18 metoprolol succinate 100 mg PO BID 11/18/18 11/18/18 Previous Rx's Medication Instructions Recorded furosemide [Lasix] 60 mg PO BID #10 tab 11/15/18 Allergies Allergy/AdvReac Type Severity Reaction Status Date / Time amoxicillin Allergy Mild DIARRHEA Verified 11/18/18 14:25 naproxen Allergy Mild DIARRHEA Verified 11/18/18 14:25 Penicillins [PENICILLINS] Allergy Unknown Verified 11/18/18 14:25 Review of Systems Review of Systems ROS Unobtainable: All systems reviewed & are unremarkable except as noted in HPI and below Constitutional Denies chills, Denies fever(s), Denies lethargy and Denies weakness Cardiovascular Denies chest pain (does have pain with AICD shock.), Denies irregular heart rhythm, Denies lightheadedness, Denies palpitations, Denies dyspnea, Denies dyspnea on exertion and Denies orthopnea Respiratory Denies cough, Denies dyspnea, Denies dyspnea on exertion and Denies wheezing Gastrointestinal Gastrointestinal: Denies abdominal pain, Denies change in bowel habits, Denies diarrhea, Denies nausea and Denies vomiting Genitourinary Denies hematuria, Denies flank pain, Denies urinary incontinence and Denies urinary urgency Neurologic Denies weakness Endocrine Denies palpitations Allergic/Immunologic Denies wheezing [facility] Medical History Obstructive sleep apnea of adult (Chronic) Primary insomnia (Chronic) Hyperlipidemia (Chronic) Hypertension (Chronic) Ischemic cardiomyopathy (Chronic) Obesity (Chronic) Snoring (Chronic) Type 2 diabetes mellitus (Chronic) Social History Smoking Status: Former smoker Exam Narrative Exam Narrative: GENERAL: Alert and oriented x three, well nourished, well appearing male in moderate distress. HEENT: Head normocephalic, atraumatic, EOMI, pupils reactive, face symmetric, moist mucous membranes NECK: Supple, full range of motion CARDIOVASCULAR: Tachycardic irregular rate and rhythm without murmurs, rubs or gallops. No JVD. RESPIRATORY: Breath sounds equal bilaterally, no wheezes rales or rhonchi. No tachypnea, no accessory muscle use. ABDOMEN: Soft, nontender. Normoactive bowel sounds all 4 quadrants. No guarding or rebound, rigidity, no mass : No CVA tenderness EXTREMITIES: Normal range of motion, no clubbing or edema. Neurovascularly intact. 2+ pulses bilateral upper and lower extremities. NEUROLOGICAL: Cranial nerves II through XII grossly intact. Moving all extremities SKIN: Warm, dry, no petechiae, no rashes or lesions. Initial Vital Signs Initial Vital Signs: Vital Signs Pulse Rate 152 H 11/18/18 13:41 Respiratory Rate 20 11/18/18 13:41 Blood Pressure 159/134 H 11/18/18 13:41 Pulse Oximetry 95 11/18/18 13:41 Course Orders Ordered: ED Orders 11/18/18 13:43 XR chest 1V Stat EKG-12 Lead Stat 11/18/18 13:49 B Type Natriuretic Peptide Stat Basic Metabolic Panel Stat Complete Blood Count AUTO DIFF Stat Magnesium Stat Partial Thromboplastin Time Stat Prothrombin Time INR Stat Thyroid Stimulating Hormone Stat Troponin & CK Cardiac Panel Stat Sodium Chloride (Normal Saline 0.9%) 1,000 mls @ 150 mls/hr IV CONT STEPHANI Last Infusion: 11/18/18 15:29 Dose: 100 mls/hr Admin: 11/18/18 13:49 Dose: 150 mls/hr Amiodarone HCl/Dextrose (Nexterone) 360 mg in 200 mls @ 33.333 mls/hr IV NOW ONE; Protocol Stop: 11/18/18 19:50 Last Titration: 11/18/18 14:09 Dose: 0 mls/hr, 0 mls/hr Admin: 11/18/18 13:56 Dose: 33.333 mls/hr, 33.33 mls/hr Amiodarone HCl/Dextrose (Nexterone) 360 mg in 200 mls @ 33.333 mls/hr IV NOW ONE; Protocol Stop: 11/18/18 23:36 Amiodarone HCl/Dextrose (Nexterone) 360 mg in 200 mls @ 33.333 mls/hr IV NOW ONE; Protocol Stop: 11/19/18 01:23 Amiodarone HCl/Dextrose (Nexterone) 150 mg in 100 mls @ 600 mls/hr IV NOW ONE; Protocol Stop: 11/18/18 19:33 Discontinued Medications Adenosine (Adenocard) 6 mg IV NOW ONE Stop: 11/18/18 14:06 Last Admin: 11/18/18 14:09 Dose: 6 mg Adenosine (Adenocard) 12 mg IV NOW ONE Stop: 11/18/18 14:11 Last Admin: 11/18/18 14:11 Dose: 12 mg Aspirin (Aspirin Chew) 324 mg PO NOW ONE Stop: 11/18/18 13:44 Last Admin: 11/18/18 13:54 Dose: 324 mg Fentanyl (Sublimaze) 50 mcg IV NOW ONE Stop: 11/18/18 13:52 Last Admin: 11/18/18 13:52 Dose: 50 mcg Furosemide (Lasix) 40 mg IV NOW ONE Stop: 11/18/18 18:21 Last Admin: 11/18/18 18:33 Dose: 40 mg Amiodarone HCl/Dextrose (Nexterone) 150 mg in 100 mls @ 600 mls/hr IV NOW ONE Stop: 11/18/18 13:52 Last Infusion: 11/18/18 13:49 Dose: 0 mls/hr Admin: 11/18/18 13:48 Dose: 600 mls/hr Lorazepam (Ativan) 0.5 mg IV NOW ONE Stop: 11/18/18 13:45 Last Admin: 11/18/18 14:02 Dose: 0.5 mg Vital Signs - 8 hr 11/18/18 13:41 11/18/18 14:00 11/18/18 14:30 Pulse Rate 152 H 116 H 105 H Respiratory Rate 20 20 22 Blood Pressure 159/134 H Blood Pressure [Right Arm] 136/114 H 145/80 H Pulse Oximetry 95 96 99 11/18/18 15:00 11/18/18 15:50 11/18/18 16:13 Pulse Rate 99 H 85 88 Respiratory Rate 35 H 19 18 Blood Pressure Blood Pressure [Right Arm] 127/66 109/64 105/70 Pulse Oximetry 99 99 11/18/18 17:07 11/18/18 18:21 Pulse Rate 94 H 88 Respiratory Rate 22 19 Blood Pressure Blood Pressure [Right Arm] 112/73 123/82 Pulse Oximetry 99 100 MDM - Arrhythmia/Palpitations Lab Data Attestation: I reviewed the patient's lab results. Result diagrams: 11/18/18 13:49 11/18/18 13:49 Lab Results 11/18/18 11/18/18 11/18/18 Range/Units 13:49 13:49 13:49 WBC 14.1 H (4.5-11.0) X10^3/uL RBC 4.75 (4.5-5.9) X10^6/uL Hgb 14.3 (13.5-17.5) g/dL Hct 44.6 (41-53) % MCV 94.0 (80-100) fL MCH 30.1 (26-34) PG MCHC 32.1 (30-36) % RDW 14.3 (11.6-14.8) % Plt Count 262 (150-400) X10^3/uL Neut % (Auto) 66.3 (50-75) % Lymph % (Auto) 22.1 L (25-40) % [place] % (Auto) 10.6 (3-14) % Eos % (Auto) 0.4 L (2-4) % Baso % (Auto) 0.6 (0-2) % Neut # (Auto) 9400 H (7970-1173) /uL PT 14.9 H (10.1-12.7) SECONDS INR 1.3 (0.9-1.3) APTT 31 (26.4-36.2) SECONDS Sodium 139 (137-145) mmol/L Potassium 4.1 (3.4-5.1) mmol/L Chloride 99 (98-107) mmol/L Carbon Dioxide 27 (22-32) mmol/L BUN 27 H (9-20) mg/dL Creatinine 1.80 H (0.66-1.25) mg/dL Estimated GFR 36.5 L (>60) mL/min BUN/Creatinine Ratio 15.0 (6-22) Glucose 289 H (80-110) mg/dL Calcium 9.7 (8.4-10.2) mg/dL Magnesium 2.1 (1.6-2.3) mg/dL Total Creatine Kinase 115 (55-170) U/L CK-MB (CK-2) 2.39 H (<2.37) ng/mL CK-MB (CK-2) Rel Index 2.1 (1.5-5.0) % Troponin I 0.023 (0.01-0.034) ng/mL B-Natriuretic Peptide (<100) TSH (0.47-4.68) uIU/mL 11/18/18 11/18/18 Range/Units 13:49 13:49 WBC (4.5-11.0) X10^3/uL RBC (4.5-5.9) X10^6/uL Hgb (13.5-17.5) g/dL Hct (41-53) % MCV (80-100) fL MCH (26-34) PG MCHC (30-36) % RDW (11.6-14.8) % Plt Count (150-400) X10^3/uL Neut % (Auto) (50-75) % Lymph % (Auto) (25-40) % [place] % (Auto) (3-14) % Eos % (Auto) (2-4) % Baso % (Auto) (0-2) % Neut # (Auto) (8505-0576) /uL PT (10.1-12.7) SECONDS INR (0.9-1.3) APTT (26.4-36.2) SECONDS Sodium (137-145) mmol/L Potassium (3.4-5.1) mmol/L Chloride (98-107) mmol/L Carbon Dioxide (22-32) mmol/L BUN (9-20) mg/dL Creatinine (0.66-1.25) mg/dL Estimated GFR (>60) mL/min BUN/Creatinine Ratio (6-22) Glucose (80-110) mg/dL Calcium (8.4-10.2) mg/dL Magnesium (1.6-2.3) mg/dL Total Creatine Kinase (55-170) U/L CK-MB (CK-2) (<2.37) ng/mL CK-MB (CK-2) Rel Index (1.5-5.0) % Troponin I (0.01-0.034) ng/mL B-Natriuretic Peptide 653 H (<100) TSH 2.13 (0.47-4.68) uIU/mL Imaging Data Chest x-ray: Radiologist's impression: [address] [address] XRay Report Signed Patient: Raul Ray MR#: [id number] : 1940 Acct:[id number] Age/Sex: 78 / M Date of Service: 11/18/18 Loc: ED Accession Number: [id number] Procedure: XR chest 1V Ordering Provider: Milana Lucio D.O. PROCEDURE: XR CHEST 1V INDICATIONS: defib keeps firing TECHNIQUE: One view of the chest was acquired. COMPARISON: [facility], , CHEST 2 VIEW, 02/26/2018, 13:09. [facility], CR, XR CHEST 1V, 11/15/2018, 12:08. FINDINGS: Surgical changes and devices: Cardiac pacemaker is noted with leads in expected position. Lungs and pleura: Probable small bilateral effusions. Mildly increased pulmonary sclerae. No pneumothorax. Mediastinum: Mediastinal contours appear normal. Heart size is is moderately increased. Bones and chest wall: No suspicious bony lesions. Overlying soft tissues appear unremarkable. IMPRESSION: Moderate cardiomegaly with mildly increased pulmonary vascularity and probable small pleural effusions suggesting mild CHF. Dictated by: Evelia Burr M.D. on 11/18/2018 at 13:59 Approved by: Evelia Burr M.D. on 11/18/2018 at 14:02 ECG Data Attestation: I personally reviewed and interpreted this ECG as follows: Interpretation: Patient appears to have wide QRS with irregular rhythm Patient' s has irregular rhythm. Patient has bundle branch block. He also has possible ST depression. Rate is 150, QRS is 156 with a QTC of 346. Patient had a repeat multiple EKGs while giving adenosine which does show spacing out what continued widened QRS he was given adenosine which did show some spacing patient continues to have a widened QRS but does not look like a true V-tach. Patient's telemetry here in the department and with EMS does appear to have some episodes of looked like ventricular tachycardia. It appears that patient may be discharging during or prior to these episodes but it is unclear from the EMS telemetry strip MDM Narrative Medical decision making narrative: This an 78-year-old male who comes in with multiple ICD shocks. Contacted Cardiology and spoke with kimmy Aldana at [facility] she reviewed patient's EKG and telemetry strips. Patient had already received 150 mg bolus of amiodarone. We discussed that he continues to be tachycardic. She asked that we give adenosine and we did do 6 and 12 mg doses which did show a very short period of slowing but no other changes. This was also transmitted to Cardiology which they reviewed. Patient placed interrogating device on and the images were reviewed by Cardiology. There was some delay as they were involved in a cardiac catheterization. They feel that patient is having inappropriate firing of his defibrillator. He appears to have atrial fibrillation as well as some flutter. They recommended amiodarone drip and patient to be transported to [facility] where his EP doctor Qian is located. [facility] does not have any beds available. We spoke with [facility] where patient had an ablation about a year ago. I spoke with their EP who recommended no amiodarone drip at this time and no other medications as patient's heart rate is currently in the 80s although continues to be in atrial fibrillation. [facility] did not have a bed available and we re-contacted Cardiology and spoke with Dr. Potter. On his recommendations to continue the amiodarone drip after repeat bolus of 150 mg, did not continue any Lasix. Plan is to admit the patient overnight into our ICU and have him transferred to [facility] when a bed becomes available. I spoke with the hospitalist, she accepts we discussed cardiology's recommendations. Patient and family all aware of the plan. Patient had 3 shocks here in the department when he initially arrived and has not had any further, he does have a magnet in place with his defibrillator turned off. Patient has not had any other chest pain or shortness of breath, no nausea or diaphoresis. He states he was asymptomatic prior to the defibrillator firing. He does have some pain directly around the defibrillator itself. Patient's lab work shows that his BNP is improving after 3 days of Lasix at 60 mg twice daily, it is down from 1200 to 600 range. His troponin is negative at 0.023, chest x-ray shows some mild pulmonary edema/ pleural effusion and cardiomegaly. Patient's renal function is at 1.8 which is a slight elevation from his normal which is about a baseline of 1.4-1.6. He has an elevated white count no other clear source of infection and this could possibly be reactive. Code status was reviewed with the patient he is full code. [facility] was re-contacted they state that beds will not likely be available till tomorrow. Critical Care Time Critical Care Time: Yes Total Critical Care Time: 180 Attestation: The high probability of a clinically significant, sudden or life threatening deterioration of the [cardiac] system(s) required my full and direct attention, intervention and personal management. The aggregate critical care time was [180 ] minutes. 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
[2018-11-18] MEDS: fentaNYL 100 MCG/2 ML INJ 50 MCG IV (13:52)
[2018-11-18] MEDS: ASPIRIN 81 MG TAB 324 MG PO (13:54)
[2018-11-18] MEDS: AMIODARONE 360 MG/200 ML PIGGYBACK 33.33 MG IV ×2 (13:56→19:58)
[2018-11-18 13:58] LABS: Add Manual Diff / Slide Review NO; Basophils Percent Auto 0.6 % (0-2); Eosinophils Percent Auto 0.4 % (2-4); Hematocrit 44.6 % (41-53); Hemoglobin 14.3 g/dL (13.5-17.5); Lymphocytes Percent Auto 22.1 % (25-40); Mean Corpuscular HGB Conc 32.1 % (30-36); Mean Corpuscular Hemoglobin 30.1 PG (26-34); Monocytes Percent Auto 10.6 % (3-14); Neutrophils Absolute Auto 9400 /uL (1500-7000); Neutrophils Percent Auto 66.3 % (50-75); Platelet Count 262 X10^3/uL (150-400); Red Blood Cell Count 4.75 X10^6/uL (4.5-5.9); Red Cell Distribution Width 14.3 % (11.6-14.8); White Blood Cell Count 14.1 X10^3/uL (4.5-11.0)
[2018-11-18] MEDS: LORazepam 2 MG/ML SYRINGE 0.5 MG IV (14:02)
[2018-11-18 14:06] LABS: INR 1.3 (0.9-1.3); Prothrombin Time 14.9 SECONDS (10.1-12.7)
[2018-11-18 14:09] LABS: PTT Partial Thromboplastin Tim 31 SECONDS (26.4-36.2)
[2018-11-18] MEDS: ADENOSINE 6 MG/2 ML VIAL IV (14:09)
[2018-11-18 14:10] LABS: Blood Urea Nitrogen 27 mg/dL (9-20); Calcium 9.7 mg/dL (8.4-10.2); Carbon Dioxide 27 mmol/L (22-32); Chloride 99 mmol/L (98-107); Creatine Kinase 115 U/L (55-170); Estimated Glomerular Filt Rate 36.5 mL/min (>60); Glucose 289 mg/dL (80-110); Magnesium 2.1 mg/dL (1.6-2.3); Potassium 4.1 mmol/L (3.4-5.1); Sodium 139 mmol/L (137-145)
[2018-11-18] MEDS: ADENOSINE 12 MG/4 ML SYRINGE IV (14:11)
[2018-11-18 14:22] LABS: Troponin I 0.023 ng/mL (0.01-0.034)
--- NOTE | 2018-11-18 14:26 | PC.NURSE ---
1426: Dr. Lucio placed magnet to turn AICD off. Defibrillator pads placed on patient as precaution. AICD was interrogated prior to magnet placement and is currently transmitting to [facility]. Patient is resting comfortably on stretcher. Denies pain at this time. Rate is irregular 92-110s.
[2018-11-18 14:37] LABS: CKMB % Relative Index 2.1 % (1.5-5.0); Creatine Kinase MB 2.39 ng/mL (<2.37); HEMOLYSIS 36 (0-50)
[2018-11-18 14:44] LABS: B Type Natriuretic Peptide 653 (<100)
[2018-11-18 14:50] LABS: Thyroid Stimulating Hormone 2.13 uIU/mL (0.47-4.68)
[2018-11-18] MEDS: FUROSEMIDE 40 MG/4 ML VIAL IV (18:33)
--- NOTE | 2018-11-18 21:37 | PM.HP.1 ---
History of Present Illness Date Patient Seen: 11/18/18 Time Patient Seen: 20:16 Chief complaint: Defib shocking Narrative: This is a 78-year-old male patient with a history coronary artery disease with stent placement, DE, ischemic cardiomyopathy, atrial fibrillation and AICD implantation who presents to the ER today with frequent defibrillator discharges. The patient states he was getting out of the shower this morning when his defibrillator fired and then again a few seconds later. He reports is a fibrillator firing every few minutes prompting a call to EMS. He states he had his AICD implanted a couple of years and had an ablation done at [facility] in November 2017 which time his amiodarone was stopped. He reports a similar episode AICD firing for which he was evaluated in the ER in February of 2018 but not admitted. He additionally states he received calls from his doctor's office in October indicating that he has gone back into atrial fibrillation to assess the status and medication. The patient continues to be anticoagulated on Eliquis. He reports worsening of his CHF recently with associated dyspnea and orthopnea. His Lasix was increased with resolution of the problem. 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 Patient is controlled on glargine and NovoLog. Patient History Medical History Obstructive sleep apnea of adult (Chronic) Primary insomnia (Chronic) Atrial fibrillation (Acute) Myocardial infarction (Acute) Hyperlipidemia (Chronic) Hypertension (Chronic) Ischemic cardiomyopathy (Chronic) Obesity (Chronic) Snoring (Chronic) Type 2 diabetes mellitus (Chronic) Surgical History History of ERCP (Acute) History of cholecystectomy (Acute) History of hernia repair (Acute) History of left knee replacement (Acute) History of partial knee replacement (Acute) History of resection of pancreas (Acute) History of splenectomy (Acute) S/P implantation of automatic cardioverter/defibrillator (AICD) (Acute) Family & Social History Social History: household members spouse Prior Living Arrangements House Safety & Behavioral: Feels Safe in Current Yes Environment Been Physically Hurt or No Threatened By a Person Suicidal Ideation Description None Suicide Plan Description No Plan Tobacco & Substance use: Smoking Status Former smoker alcohol intake former Substance Use Type does not use Comment: The patient is and lives with his Irish in a single level single family dwelling. His parents are both as well as his 2 brothers and 1 sister. The patient endorses a past smoking history of 2 packs per day for approximately 40 years Advanced directives: Patient wishes to have full resuscitation but does not desire prolonged life-sustaining efforts. His Irish is his surrogate decision maker. Meds Home Medications Medication Instructions Recorded Confirmed Type lisinopril 40 mg PO QAM #0 01/20/08 11/18/18 History coenzyme Q10 [CoQ-10] 100 mg PO DAILY #0 07/15/12 11/18/18 History rosuvastatin [Crestor] 10 mg PO QPM #0 07/15/12 11/18/18 History aspirin 81 mg OR QPM #0 12/11/17 11/18/18 History furosemide [Lasix] 60 mg PO BID #10 tab 11/15/18 11/18/18 Rx apixaban [Eliquis] 2.5 mg PO BID 11/18/18 11/18/18 History docusate sodium 100 mg PO DAILY 11/18/18 11/18/18 History [id number] serr 1 tab PO BID 11/18/18 11/18/18 History [Osteo Bi-Flex (5-Loxin)] insulin aspart U-100 [Novolog 40 - 50 units SUBCUT BID 11/18/18 11/18/18 History U-100 Insulin aspart] insulin glargine [Lantus U-100 25 units SUBCUT BID 11/18/18 11/18/18 History Insulin] lisinopril 20 mg PO QPM 11/18/18 11/18/18 History metoprolol succinate 100 mg PO BID 11/18/18 11/18/18 History Allergies Allergy/AdvReac Type Severity Reaction Status Date / Time amoxicillin Allergy Mild DIARRHEA Verified 11/18/18 14:25 naproxen Allergy Mild DIARRHEA Verified 11/18/18 14:25 Penicillins [PENICILLINS] Allergy Unknown Verified 11/18/18 14:25 Review of Systems Review of Systems Constitutional: Denies fevers, chills, sweats, fatigue, good appetite with stable weight Eyes: History of cataract surgery, Denies visual changes, denies floaters, diplopia ENT: Positive for small blood from left nare when blowing nose in the morning, Denies headaches, hearing changes, ear pain, no nasal congestion, rhinorrhea, no dysphagia, sore throat or dentalgia, no neck stiffness or pain Respiratory: Positive for exertional dyspnea, Denies SOB, cough, wheezing Cardiovascular: Positive for palpitations, multiple AICD firing today, bilateral ankles swelling, Denies chest orthostatic dizziness, orthopnea, syncope Gastrointestinal: Denies abdominal pain, nausea or vomiting, no reflux or bloating, constipation or diarrhea, denies blood in stool. Genitourinary: Positive for frequent urination related to Lasix therapy, nocuria 2-8 times nightly, denies penile discharge discharge, no complains of burning or urgency, hematuria on voiding Musculoskeletal: Positive for left hip pain, totally lead placement on the left partial replacement on the right, denies falls, weakness, limited movement, cramps, edema, myalgia or joint swelling. Integumentary: denies skin lesions, masses, rashes, hives, itching or hair loss Neurological: denies dizziness, confusion, numbness or tingling, speech difficulties or seizures Psychiatric: denies disturbances in thought, attentions or mood, denies substance abuse Endocrine: Positive for diabetes secondary to partial pancreatectomy denies goiter, lethargy, abnormal sweating, and heat/cold intolerance. Heme/lymph: Denies lymphadenopathy, abnormal bleeding or bruising Exam Vital Signs (past 8 hours): - 11/18/18 13:41 11/18/18 14:00 11/18/18 14:30 Temperature Pulse Rate 152 H 116 H 105 H Respiratory Rate 20 20 22 Blood Pressure 159/134 H Blood Pressure [Right Arm] 136/114 H 145/80 H Pulse Oximetry 95 96 99 11/18/18 15:00 11/18/18 15:50 11/18/18 16:13 Temperature Pulse Rate 99 H 85 88 Respiratory Rate 35 H 19 18 Blood Pressure Blood Pressure [Right Arm] 127/66 109/64 105/70 Pulse Oximetry 99 99 11/18/18 17:07 11/18/18 18:21 11/18/18 19:37 Temperature Pulse Rate 94 H 88 89 Respiratory Rate 22 19 21 Blood Pressure Blood Pressure [Right Arm] 112/73 123/82 130/94 H Pulse Oximetry 99 100 98 11/18/18 20:23 11/18/18 20:52 Temperature 97.7 F Pulse Rate 107 H Respiratory Rate 24 Blood Pressure 142/80 H Blood Pressure [Right Arm] Pulse Oximetry 98 Oxygen Delivery Method Room Air Oxygen Flow Rate 2 Narrative Exam Narrative: General: Well developed, overweight male, BMI of 28.7, in no acute distress. Skin: Warm, dry, pink, no rashes, no visible lesions HEENT: Normocephalic, PERRLA, EOMs intact without nystagmus, conjunctiva moist, sclera is anicteric, no ear pain, hearing grossly normal, no sinus tenderness to percussion, no rhinorrhea, oropharynx is moist and pink without lesions or exudate, uvula midline, posterior pharynx without inflammation, no cervical lymphadenopathy Neck: Supple, no masses, thyroid non tender without thyromegaly or nodules, trachea midline, no carotid bruits or JVD, no supraclavicular lymphadenopathy Cardiac: Irregularly irregular rhythm, S1-S2, no murmur appreciated,, no gallops or rubs, 2+ radial pulse, palpable dorsalis pedis pulse, delayed capillary refill bilateral feet at 4 sec, trace bilateral pedal edema, AICD left anterior chest with magnet taped in place Chest: Symmetrical movement, breathing non labored, no cough present, BS equal bilateral without coarseness, crackles or wheezes Abdomen: Slightly firm and round, tympanic to percussion upper dull bilateral lower quadrants, no tenderness or guarding, no peritoneal signs, no masses or organomegaly, no flank or suprapubic pain, BS normal, no aortic bruit. Back: Normal curvature, no tenderness to palpation, no CVA tenderness on percussion Extremities: Preserved range of motion, well-healed surgical scar bilateral knees, no synovial effusions or deformities, strength 5/5 and symmetrical Neuro: AAOx4, cranial nerves II-XII grossly intact, distal sensation intact to light touch, no paresthesias Psych: pleasant, thought coherent, stable mood and congruent affect Objective Labs Result Diagrams: 11/18/18 13:49 11/18/18 13:49 Labs: Laboratory Results - last 24 hr 11/18/18 11/18/18 11/18/18 13:49 13:49 13:49 WBC 14.1 H RBC 4.75 Hgb 14.3 Hct 44.6 MCV 94.0 MCH 30.1 MCHC 32.1 RDW 14.3 Plt Count 262 Neut % (Auto) 66.3 Lymph % (Auto) 22.1 L Mcdonald % (Auto) 10.6 Eos % (Auto) 0.4 L Baso % (Auto) 0.6 Neut # (Auto) 9400 H PT 14.9 H INR 1.3 APTT 31 Sodium 139 Potassium 4.1 Chloride 99 Carbon Dioxide 27 BUN 27 H Creatinine 1.80 H Estimated GFR 36.5 L BUN/Creatinine Ratio 15.0 Glucose 289 H Calcium 9.7 Magnesium 2.1 Total Creatine Kinase 115 CK-MB (CK-2) 2.39 H CK-MB (CK-2) Rel Index 2.1 Troponin I 0.023 B-Natriuretic Peptide TSH 11/18/18 11/18/18 13:49 13:49 WBC RBC Hgb Hct MCV MCH MCHC RDW Plt Count Neut % (Auto) Lymph % (Auto) Mcdonald % (Auto) Eos % (Auto) Baso % (Auto) Neut # (Auto) PT INR APTT Sodium Potassium Chloride Carbon Dioxide BUN Creatinine Estimated GFR BUN/Creatinine Ratio Glucose Calcium Magnesium Total Creatine Kinase CK-MB (CK-2) CK-MB (CK-2) Rel Index Troponin I B-Natriuretic Peptide 653 H TSH 2.13 PATIENT NAME: FIOR RIOS : 1940 EXAM DATE: 11/18/2018 14:04 ORD. : COLTON ALEJANDRA DO CC: MODALITY: CR PATIENT TYPE: Pre CONTRAST MEDIA: STATION ID: [id number] FLUORO TIME: PROCEDURE: XR CHEST 1V INDICATIONS: defib keeps firing TECHNIQUE: One view of the chest was acquired. COMPARISON: [facility], , CHEST 2 VIEW, 02/26/2018, 13:09. [facility], , XR CHEST 1V, 11/15/2018, 12:08. FINDINGS: Surgical changes and devices: Cardiac pacemaker is noted with leads in expected position. Lungs and pleura: Probable small bilateral effusions. Mildly increased pulmonary sclerae. No pneumothorax. Mediastinum: Mediastinal contours appear normal. Heart size is is moderately increased. Bones and chest wall: No suspicious bony lesions. Overlying soft tissues appear unremarkable. IMPRESSION: Moderate cardiomegaly with mildly increased pulmonary vascularity and probable small pleural effusions suggesting mild CHF. Dictated by: Evelia Burr M.D. on 11/18/2018 at 13:59 Approved by: Evelia Burr M.D. on 11/18/2018 at 14:02 Assessment & Plan Plan: Assessment/Plan Narrative: 1. AICD discharge, acute -onset of inappropriate AICD firing this morning, discharge is occurring within seconds or minutes of each other -magnet placed to disable AICD -underlying rhythm atrial fibrillation with ventricular and aberrant beats -electrolytes within normal range with potassium of 4.1 and magnesium is 2.1 -history of ischemic cardiomyopathy and prior arrhythmia, similar episode 02/2018 seen in the ER and discharged home -patient's emerging solutions executive consulted but no bed available for patient transfer to [facility] -Dr. Potter contacted by Dr. Alejandra and recommended amiodarone infusion -patient admitted to ICU for continuous monitoring -magnet will remain in place over AICD -plan to transfer to [facility] when bed is available 2. Atrial fibrillation, present on admission, active -patient without chest pain or shortness of breath -patient initially with rapid ventricular response with a rate of 152 on admission to the ER -on arrival in ICU the patient's rate is variable from 90s to low 100s with ectopic and aberrant beats -amiodarone drip infusing at 1 milligram/minute do so for 6 hr and reduced to 0.5 mg -will continue the patient's own metoprolol 100 mg twice daily -will continue patient's Eliquis 2.5 mg twice daily 3. Diabetes, acquired, present on admission, active -patient diabetic following pancreatic resection -blood sugars managed with glargine insulin 25 units twice daily and sliding scale NovoLog. -blood sugars elevated at 289 on arrival in the ER and 172 on arrival in the intensive care unit. -continue Lantus at 25 units and high dose range NovoLog with blood sugar checks a.c. HS -will obtain a hemoglobin A1c with next labs 4. Congestive heart failure, present on admission, stable -patient denies shortness of breath and denies orthopnea -chest x-ray shows moderate cardiomegaly with mildly increased vascularity -no crackles on auscultation, 1+ bilateral pedal edema -will continue patient's Lasix 60 mg twice daily -potassium is 4.1 without potassium supplementation, will track electrolytes 5. Hypertension, stable -blood pressure well controlled at 113/73 -will continue patient's lisinopril 40 mg q.a.m. 20 mg at night -will continue metoprolol at 100 mg b.i.d. 6. Hyperlipidemia, present on admission, presumed stable -will continue Crestor 10 mg daily The Quality VTE Deep Vein Thrombosis/Pulmonary Embolism Present on Admission: No
--- NOTE | 2018-11-18 21:40 | P.HP_ITS ---
History of Present Illness Date Patient Seen: 11/18/18 Time Patient Seen: 20:16 Chief complaint: Defib shocking Narrative: This is a 78-year-old male patient with a history coronary artery disease with stent placement, [place], ischemic cardiomyopathy, atrial fibrillation and AICD implantation who presents to the ER today with frequent defibrillator discharges. The patient states he was getting out of the shower this morning when his defibrillator fired and then again a few seconds later. He reports is a fibrillator firing every few minutes prompting a call to EMS. He states he had his AICD implanted a couple of years and had an ablation done at [facility] in November 2017 which time his amiodarone was stopped. He reports a similar episode AICD firing for which he was evaluated in the ER in February of 2018 but not admitted. He additionally states he received calls from his doctor 's office in October indicating that he has gone back into atrial fibrillation to assess the status and medication. The patient continues to be anticoagulated on Eliquis. He reports worsening of his CHF recently with associated dyspnea and orthopnea. His Lasix was increased with resolution of the problem. 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 Patient is controlled on glargine and NovoLog. Patient History Medical History Obstructive sleep apnea of adult (Chronic) Primary insomnia (Chronic) Atrial fibrillation (Acute) Myocardial infarction (Acute) Hyperlipidemia (Chronic) Hypertension (Chronic) Ischemic cardiomyopathy (Chronic) Obesity (Chronic) Snoring (Chronic) Type 2 diabetes mellitus (Chronic) Surgical History History of ERCP (Acute) History of cholecystectomy (Acute) History of hernia repair (Acute) History of left knee replacement (Acute) History of partial knee replacement (Acute) History of resection of pancreas (Acute) History of splenectomy (Acute) S/P implantation of automatic cardioverter/defibrillator (AICD) (Acute) Family & Social History Social History: household members spouse Prior Living Arrangements House Safety & Behavioral: Feels Safe in Current Yes Environment Been Physically Hurt or No Threatened By a Person Suicidal Ideation Description None Suicide Plan Description No Plan Tobacco & Substance use: Smoking Status Former smoker alcohol intake former Substance Use Type does not use Comment: The patient is and lives with his Irish in a single level single family dwelling. His parents are both as well as his 2 brothers and 1 sister. The patient endorses a past smoking history of 2 packs per day for approximately 40 years Advanced directives: Patient wishes to have full resuscitation but does not desire prolonged life-sustaining efforts. His Irish is his surrogate decision maker. Meds Home Medications Medication Instructions Recorded Confirmed Type lisinopril 40 mg PO QAM #0 01/20/08 11/18/18 History coenzyme Q10 [CoQ-10] 100 mg PO DAILY #0 07/15/12 11/18/18 History rosuvastatin [Crestor] 10 mg PO QPM #0 07/15/12 11/18/18 History aspirin 81 mg OR QPM #0 12/11/17 11/18/18 History furosemide [Lasix] 60 mg PO BID #10 tab 11/15/18 11/18/18 Rx apixaban [Eliquis] 2.5 mg PO BID 11/18/18 11/18/18 History docusate sodium 100 mg PO DAILY 11/18/18 11/18/18 History [id number] serr 1 tab PO BID 11/18/18 11/18/18 History [Osteo Bi-Flex (5-Loxin)] insulin aspart U-100 [Novolog 40 - 50 units SUBCUT BID 11/18/18 11/18/18 History U-100 Insulin aspart] insulin glargine [Lantus U-100 25 units SUBCUT BID 11/18/18 11/18/18 History Insulin] lisinopril 20 mg PO QPM 11/18/18 11/18/18 History metoprolol succinate 100 mg PO BID 11/18/18 11/18/18 History Allergies Allergy/AdvReac Type Severity Reaction Status Date / Time amoxicillin Allergy Mild DIARRHEA Verified 11/18/18 14:25 naproxen Allergy Mild DIARRHEA Verified 11/18/18 14:25 Penicillins [PENICILLINS] Allergy Unknown Verified 11/18/18 14:25 Review of Systems Review of Systems Constitutional: Denies fevers, chills, sweats, fatigue, good appetite with stable weight Eyes: History of cataract surgery, Denies visual changes, denies floaters, diplopia ENT: Positive for small blood from left nare when blowing nose in the morning, Denies headaches, hearing changes, ear pain, no nasal congestion, rhinorrhea, no dysphagia, sore throat or dentalgia, no neck stiffness or pain Respiratory: Positive for exertional dyspnea, Denies SOB, cough, wheezing Cardiovascular: Positive for palpitations, multiple AICD firing today, bilateral ankles swelling, Denies chest orthostatic dizziness, orthopnea, syncope Gastrointestinal: Denies abdominal pain, nausea or vomiting, no reflux or bloating, constipation or diarrhea, denies blood in stool. Genitourinary: Positive for frequent urination related to Lasix therapy, nocuria 2-8 times nightly, denies penile discharge discharge, no complains of burning or urgency, hematuria on voiding Musculoskeletal: Positive for left hip pain, totally lead placement on the left partial replacement on the right, denies falls, weakness, limited movement , cramps, edema, myalgia or joint swelling. Integumentary: denies skin lesions, masses, rashes, hives, itching or hair loss Neurological: denies dizziness, confusion, numbness or tingling, speech difficulties or seizures Psychiatric: denies disturbances in thought, attentions or mood, denies substance abuse Endocrine: Positive for diabetes secondary to partial pancreatectomy denies goiter, lethargy, abnormal sweating, and heat/cold intolerance. Heme/lymph: Denies lymphadenopathy, abnormal bleeding or bruising Exam Vital Signs (past 8 hours): - 11/18/18 13:41 11/18/18 14:00 11/18/18 14:30 Temperature Pulse Rate 152 H 116 H 105 H Respiratory Rate 20 20 22 Blood Pressure 159/134 H Blood Pressure [Right Arm] 136/114 H 145/80 H Pulse Oximetry 95 96 99 11/18/18 15:00 11/18/18 15:50 11/18/18 16:13 Temperature Pulse Rate 99 H 85 88 Respiratory Rate 35 H 19 18 Blood Pressure Blood Pressure [Right Arm] 127/66 109/64 105/70 Pulse Oximetry 99 99 11/18/18 17:07 11/18/18 18:21 11/18/18 19:37 Temperature Pulse Rate 94 H 88 89 Respiratory Rate 22 19 21 Blood Pressure Blood Pressure [Right Arm] 112/73 123/82 130/94 H Pulse Oximetry 99 100 98 11/18/18 20:23 11/18/18 20:52 Temperature 97.7 F Pulse Rate 107 H Respiratory Rate 24 Blood Pressure 142/80 H Blood Pressure [Right Arm] Pulse Oximetry 98 Oxygen Delivery Method Room Air Oxygen Flow Rate 2 Narrative Exam Narrative: General: Well developed, overweight male, BMI of 28.7, in no acute distress. Skin: Warm, dry, pink, no rashes, no visible lesions HEENT: Normocephalic, PERRLA, EOMs intact without nystagmus, conjunctiva moist, sclera is anicteric, no ear pain, hearing grossly normal, no sinus tenderness to percussion, no rhinorrhea, oropharynx is moist and pink without lesions or exudate, uvula midline, posterior pharynx without inflammation, no cervical lymphadenopathy Neck: Supple, no masses, thyroid non tender without thyromegaly or nodules, trachea midline, no carotid bruits or JVD, no supraclavicular lymphadenopathy Cardiac: Irregularly irregular rhythm, S1-S2, no murmur appreciated,, no gallops or rubs, 2+ radial pulse, palpable dorsalis pedis pulse, delayed capillary refill bilateral feet at 4 sec, trace bilateral pedal edema, AICD left anterior chest with magnet taped in place Chest: Symmetrical movement, breathing non labored, no cough present, BS equal bilateral without coarseness, crackles or wheezes Abdomen: Slightly firm and round, tympanic to percussion upper dull bilateral lower quadrants, no tenderness or guarding, no peritoneal signs, no masses or organomegaly, no flank or suprapubic pain, BS normal, no aortic bruit. Back: Normal curvature, no tenderness to palpation, no CVA tenderness on percussion Extremities: Preserved range of motion, well-healed surgical scar bilateral knees, no synovial effusions or deformities, strength 5/5 and symmetrical Neuro: AAOx4, cranial nerves II-XII grossly intact, distal sensation intact to light touch, no paresthesias Psych: pleasant, thought coherent, stable mood and congruent affect Objective Labs Result Diagrams: 11/18/18 13:49 11/18/18 13:49 Labs: Laboratory Results - last 24 hr 11/18/18 11/18/18 11/18/18 13:49 13:49 13:49 WBC 14.1 H RBC 4.75 Hgb 14.3 Hct 44.6 MCV 94.0 MCH 30.1 MCHC 32.1 RDW 14.3 Plt Count 262 Neut % (Auto) 66.3 Lymph % (Auto) 22.1 L Schley % (Auto) 10.6 Eos % (Auto) 0.4 L Baso % (Auto) 0.6 Neut # (Auto) 9400 H PT 14.9 H INR 1.3 APTT 31 Sodium 139 Potassium 4.1 Chloride 99 Carbon Dioxide 27 BUN 27 H Creatinine 1.80 H Estimated GFR 36.5 L BUN/Creatinine Ratio 15.0 Glucose 289 H Calcium 9.7 Magnesium 2.1 Total Creatine Kinase 115 CK-MB (CK-2) 2.39 H CK-MB (CK-2) Rel Index 2.1 Troponin I 0.023 B-Natriuretic Peptide TSH 11/18/18 11/18/18 13:49 13:49 WBC RBC Hgb Hct MCV MCH MCHC RDW Plt Count Neut % (Auto) Lymph % (Auto) Schley % (Auto) Eos % (Auto) Baso % (Auto) Neut # (Auto) PT INR APTT Sodium Potassium Chloride Carbon Dioxide BUN Creatinine Estimated GFR BUN/Creatinine Ratio Glucose Calcium Magnesium Total Creatine Kinase CK-MB (CK-2) CK-MB (CK-2) Rel Index Troponin I B-Natriuretic Peptide 653 H TSH 2.13 PATIENT NAME: FOIR RIOS : 1940 EXAM DATE: 11/18/2018 14:04 ORD. : COLTON ALEJANDRA DO CC: MODALITY: CR PATIENT TYPE: Pre CONTRAST MEDIA: STATION ID: [id number] FLUORO TIME: PROCEDURE: XR CHEST 1V INDICATIONS: defib keeps firing TECHNIQUE: One view of the chest was acquired. COMPARISON: [facility], , CHEST 2 VIEW, 02/26/2018, 13:09. [facility] , , XR CHEST 1V, 11/15/2018, 12:08. FINDINGS: Surgical changes and devices: Cardiac pacemaker is noted with leads in expected position. Lungs and pleura: Probable small bilateral effusions. Mildly increased pulmonary sclerae. No pneumothorax. Mediastinum: Mediastinal contours appear normal. Heart size is is moderately increased. Bones and chest wall: No suspicious bony lesions. Overlying soft tissues appear unremarkable. IMPRESSION: Moderate cardiomegaly with mildly increased pulmonary vascularity and probable small pleural effusions suggesting mild CHF. Dictated by: Evelia Burr M.D. on 11/18/2018 at 13:59 Approved by: Evelia Burr M.D. on 11/18/2018 at 14:02 Assessment & Plan Plan: Assessment/Plan Narrative: 1. AICD discharge, acute -onset of inappropriate AICD firing this morning, discharge is occurring within seconds or minutes of each other -magnet placed to disable AICD -underlying rhythm atrial fibrillation with ventricular and aberrant beats -electrolytes within normal range with potassium of 4.1 and magnesium is 2.1 -history of ischemic cardiomyopathy and prior arrhythmia, similar episode 2017 seen in the ER and discharged home -patient's geothermal electrical engineer consulted but no bed available for patient transfer to [facility] -Dr. Potter contacted by Dr. Alejandra and recommended amiodarone infusion -patient admitted to ICU for continuous monitoring -magnet will remain in place over AICD -plan to transfer to [facility] when bed is available 2. Atrial fibrillation, present on admission, active -patient without chest pain or shortness of breath -patient initially with rapid ventricular response with a rate of 152 on admission to the ER -on arrival in ICU the patient's rate is variable from 90s to low 100s with ectopic and aberrant beats -amiodarone drip infusing at 1 milligram/minute do so for 6 hr and reduced to 0.5 mg -will continue the patient's own metoprolol 100 mg twice daily -will continue patient's Eliquis 2.5 mg twice daily 3. Diabetes, acquired, present on admission, active -patient diabetic following pancreatic resection -blood sugars managed with glargine insulin 25 units twice daily and sliding scale NovoLog. -blood sugars elevated at 289 on arrival in the ER and 172 on arrival in the intensive care unit. -continue Lantus at 25 units and high dose range NovoLog with blood sugar checks a.c. HS -will obtain a hemoglobin A1c with next labs 4. Congestive heart failure, present on admission, stable -patient denies shortness of breath and denies orthopnea -chest x-ray shows moderate cardiomegaly with mildly increased vascularity -no crackles on auscultation, 1+ bilateral pedal edema -will continue patient's Lasix 60 mg twice daily -potassium is 4.1 without potassium supplementation, will track electrolytes 5. Hypertension, stable -blood pressure well controlled at 113/73 -will continue patient's lisinopril 40 mg q.a.m. 20 mg at night -will continue metoprolol at 100 mg b.i.d. 6. Hyperlipidemia, present on admission, presumed stable -will continue Crestor 10 mg daily The Quality VTE Deep Vein Thrombosis/Pulmonary Embolism Present on Admission: No
[2018-11-18] MEDS: FUROSEMIDE 40 MG TABLET 60 MG PO (21:56)
[2018-11-18] MEDS: APIXABAN 5 MG TABLET 2.5 MG PO (21:56)
[2018-11-18] MEDS: METOPROLOL ER 50 MG TABLET 100 MG PO (21:57)
[2018-11-18] MEDS: LISINOPRIL 20 MG TABLET PO (21:58)
[2018-11-18] MEDS: INSULIN GLARGINE 100 UNIT/ML 3ML PEN 25 UNIT SUBCUT (22:00)
--- NOTE | 2018-11-18 22:37 | PC.NURSE ---
2014 - Pt to room from ER. Able to stand pivot transfer to bed. Denies lightheadedness or chest pain. Magnet taped to left chest over AICD/Pacemaker. LS dim, pt report chronic, mild, SOB with activity. Pt alert and oriented. Oriented to room and routine. Reinforced safety and call light use. Call light in reach. 2129 - Pt BG 172, following snack. Pt reports that he manages his BG following meal. MD aware of pt concern with managing own insulin. Pt requesting no short acting, novolog, insulin at this time. Requesting 24 units of Lantus. Given per pt request. Able to take PO meds without difficulty. VSS. Amiodarone gtt infusing at 33ml/hr. Continues to deny pain. Voidning per urinal. Call light in reach.
[2018-11-19] VITALS (15 sets, daily range): BP systolic 103–127; BP diastolic 54–97; PULSE 80–91; RESP 13–23; TEMP 36.2–37; O2SAT 91–98
[2018-11-19] MEDS: AMIODARONE 360 MG/200 ML PIGGYBACK 9.278 MG IV (01:41)
[2018-11-19 05:30] LABS: BUN Creatinine Ratio 18.2 (6-22); Blood Urea Nitrogen 31 mg/dL (9-20); Carbon Dioxide 28 mmol/L (22-32); Chloride 101 mmol/L (98-107); Cholesterol 95 mg/dL (140-199); Glucose 210 mg/dL (80-110); HDL Cholesterol 35 mg/dL (40-60); HEMOLYSIS < 15 (0-50); LDL Cholesterol Calculated 36 mg/dL (<100); Potassium 4.1 mmol/L (3.4-5.1); Sodium 139 mmol/L (137-145); Triglycerides 121 mg/dL (35-150)
[2018-11-19 05:54] LABS: Hemoglobin A1C% w Est Avg Glu 8.5 % (4.0-6.0)
[2018-11-19] MEDS: APIXABAN 5 MG TABLET 2.5 MG PO (08:17)
[2018-11-19] MEDS: PANTOPRAZOLE 20 MG TABLET PO (08:17)
[2018-11-19] MEDS: LISINOPRIL 20 MG TABLET 40 MG PO (08:19)
[2018-11-19] MEDS: DOCUSATE 100 MG CAPSULE PO (08:19)
[2018-11-19] MEDS: FUROSEMIDE 40 MG TABLET 60 MG PO (08:19)
[2018-11-19] MEDS: METOPROLOL ER 50 MG TABLET 100 MG PO (08:20)
[2018-11-19] MEDS: INSULIN GLARGINE 100 UNIT/ML 3ML PEN 25 UNIT SUBCUT (08:21)
[2018-11-19] MEDS: INSULIN ASPART 100 UNIT/ML INSULN PEN SUBCUT ×2 (08:22→11:59)
--- NOTE | 2018-11-19 08:27 | CM.DANOTE ---
DCP: Case received, EMR reviewed and met with patient. Introduced self and role. DCP template completed with information currently available. Patient is an 78 year old male who admitted yesterday evening to the care of the hospitalist team. PCP: Dr. Dove. Payer: Medicare/[employer]. Patient came to hospital via ambulance due to his defibulator going of several times. Patient was receiving multiple shocks. He has a history of Ischemic Cardiomyopathy, as well a-fib. Met with patient in his room, pleasant. Stated he had been off his Amniodorone for a while, but now, they just put him back on it. He is independent at home. Lives here in [place] with his spouse, Irish. He asked about getting a handicap sticker for parking, for he stated that when he is on Amniodorone, it makes him tires. Let him know that he would need to get the form and have his provider sign it. They are trying to get patient transferred to [facility] for higher level of cardiac care, but beds are full. Unclear at this time if transfer will still occur. P: DCP to continue to follow. To be determined if patient will be transferred out to another hospital. Charity Loya RN/[employer]
[2018-11-19] MEDS: SODIUM CHLORIDE 0.9% 1,000 ML 21 ML IV (11:21)
--- NOTE | 2018-11-19 12:35 | PM.DS.1 ---
History of Present Illness Date Patient Seen: 11/19/18 Chief complaint: Defib shocking Narrative: This is a 78-year-old male patient with a history coronary artery disease with stent placement, [place], ischemic cardiomyopathy, atrial fibrillation and AICD implantation who presents to the ER today with frequent defibrillator discharges. The patient states he was getting out of the shower this morning when his defibrillator fired and then again a few seconds later. He reports is a fibrillator firing every few minutes prompting a call to EMS. He states he had his AICD implanted a couple of years and had an ablation done at [facility] in November 2017 which time his amiodarone was stopped. He reports a similar episode AICD firing for which he was evaluated in the ER in February of 2018 but not admitted. He additionally states he received calls from his doctor's office in October indicating that he has gone back into atrial fibrillation to assess the status and medication. The patient continues to be anticoagulated on Eliquis. He reports worsening of his CHF recently with associated dyspnea and orthopnea. His Lasix was increased with resolution of the problem. 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 Patient is controlled on glargine and NovoLog. Discharge Providers Date of admission: 11/18/18 19:29 Primary care physician: Garfield Dove MD Consults: 11/18/18 21:03 Consult to Discharge Planning Routine Comment: Consult to Physician Routine Comment: Consulting Provider: Christiano Potter Reason for consultation: Arrythmia with inappropriate AICD firing Has provider been notified: Yes Discharge provider: Marita Fatima MD Discharge Date: 11/19/18 Summary Discharge Diagnosis: AICD inappropriate firing Chronic Atrial Fibrillation Acute on Chronic Systolic Dysfunction CAD, history of Myocardial Infarction Hyperlipidemia Ischemic cardiomyopathy, chronic Morbid obesity Chronic kidney disease stage 3 type 2 diabetes Mellitus Hospital Course: Patient was admitted to the hospital given frequent inappropriate firing of his AICD. He had a magnet placed over the AICD was placed on an amiodarone drip. Patient received 2 boluses of 150 mg of amiodarone. He had no further ventricular arrhythmias, he remained in chronic atrial fibrillation. Patient was felt to be in acute systolic heart failure upon admission. He was given IV diuresis Lasix 60 twice daily with good response. Patient was admitted to the hospital as there were no beds available at [facility]. He had no further episodes during his hospital stay. Once a bed was made available at [facility] the patient was transferred there where he could continue care under the care of his medical office secretary. At this time he is in no acute distress. His vital signs are stable. Patient will be transferred accordingly. Status at Discharge Functional status at discharge: independent ambulation Overall status at discharge: patient is back to baseline Time Spent with Patient Less than 30 minutes Exam Vital Signs (past 8 hours): - 11/19/18 05:00 11/19/18 06:00 11/19/18 07:00 Temperature 98 F Pulse Rate 80 81 80 Respiratory Rate 22 20 13 Blood Pressure 103/66 109/67 107/70 Pulse Oximetry 98 96 96 11/19/18 08:00 11/19/18 09:00 11/19/18 10:00 Temperature Pulse Rate 88 91 H 80 Respiratory Rate 22 23 21 Blood Pressure 117/69 115/97 H 127/54 L Pulse Oximetry 97 93 93 11/19/18 10:40 11/19/18 12:00 Temperature 98.6 F Pulse Rate 88 Respiratory Rate 17 Blood Pressure 109/89 Pulse Oximetry 93 98 Oxygen Delivery Method Room Air Oxygen Flow Rate 0 Narrative Exam Narrative: Pleasant gentleman in No acute distress Lungs: decreased breath sounds but clear to auscultation CV: Irregularly-irregular normal S1-S2 Abdomen: Soft nontender Extremities: No edema Objective Labs Result Diagrams: 11/18/18 13:49 11/19/18 04:45 Labs: Laboratory Results - last 24 hr 11/18/18 11/18/18 11/18/18 13:49 13:49 13:49 WBC 14.1 H RBC 4.75 Hgb 14.3 Hct 44.6 MCV 94.0 MCH 30.1 MCHC 32.1 RDW 14.3 Plt Count 262 Neut % (Auto) 66.3 Lymph % (Auto) 22.1 L Brooks % (Auto) 10.6 Eos % (Auto) 0.4 L Baso % (Auto) 0.6 Neut # (Auto) 9400 H PT 14.9 H INR 1.3 APTT 31 Sodium 139 Potassium 4.1 Chloride 99 Carbon Dioxide 27 BUN 27 H Creatinine 1.80 H Estimated GFR 36.5 L BUN/Creatinine Ratio 15.0 Glucose 289 H Hemoglobin A1c Calcium 9.7 Magnesium 2.1 Total Creatine Kinase 115 CK-MB (CK-2) 2.39 H CK-MB (CK-2) Rel Index 2.1 Troponin I 0.023 B-Natriuretic Peptide Triglycerides Cholesterol LDL Cholesterol, Calc HDL Cholesterol TSH Nasal Screen MRSA (PCR) 11/18/18 11/18/18 11/18/18 13:49 13:49 20:50 WBC RBC Hgb Hct MCV MCH MCHC RDW Plt Count Neut % (Auto) Lymph % (Auto) Brooks % (Auto) Eos % (Auto) Baso % (Auto) Neut # (Auto) PT INR APTT Sodium Potassium Chloride Carbon Dioxide BUN Creatinine Estimated GFR BUN/Creatinine Ratio Glucose Hemoglobin A1c Calcium Magnesium Total Creatine Kinase CK-MB (CK-2) CK-MB (CK-2) Rel Index Troponin I B-Natriuretic Peptide 653 H Triglycerides Cholesterol LDL Cholesterol, Calc HDL Cholesterol TSH 2.13 Nasal Screen MRSA (PCR) Negative for mrsa 11/19/18 11/19/18 04:45 04:45 WBC RBC Hgb Hct MCV MCH MCHC RDW Plt Count Neut % (Auto) Lymph % (Auto) Brooks % (Auto) Eos % (Auto) Baso % (Auto) Neut # (Auto) PT INR APTT Sodium 139 Potassium 4.1 Chloride 101 Carbon Dioxide 28 BUN 31 H Creatinine 1.70 H Estimated GFR 39.0 L BUN/Creatinine Ratio 18.2 Glucose 210 H Hemoglobin A1c 8.5 H Calcium 9.0 Magnesium Total Creatine Kinase CK-MB (CK-2) CK-MB (CK-2) Rel Index Troponin I B-Natriuretic Peptide Triglycerides 121 Cholesterol 95 L LDL Cholesterol, Calc 36 HDL Cholesterol 35 L TSH Nasal Screen MRSA (PCR) Discharge Plan Discharge Plan Patient Disposition: [facility] Transfer to: [facility] Discharge Med Rec/Prescriptions Prescriptions: New amiodarone in dextrose 5 % 150 mg/100 mL (1.5 mg/mL) solution See Label Instructions .ROUTE .COMPLEX Qty: 1200 RF: 0 Continue lisinopril 40 mg Tablet 40 mg PO QAM Qty: 0 RF: 0 rosuvastatin [Crestor] 10 MG tablet 10 mg PO QPM Qty: 0 RF: 0 coenzyme Q10 [CoQ-10] 100 mg Capsule 100 mg PO DAILY Qty: 0 RF: 0 aspirin 81 MG tablet,delayed release (DR/EC) 81 mg OR QPM Qty: 0 RF: 0 furosemide [Lasix] 40 mg tablet 60 mg PO BID Qty: 10 RF: 0 insulin glargine 100 unit/mL solution 25 units subcut BID RF: 0 metoprolol succinate 100 mg tablet extended release 24 hr 100 mg PO BID RF: 0 insulin aspart U-100 100 unit/mL solution 40 - 50 units subcut BID RF: 0 docusate sodium 100 mg Capsule 100 mg PO DAILY RF: 0 lisinopril 40 mg Tablet 20 mg PO QPM RF: 0 [id number] [Osteo Bi-Flex (5-Loxin)] 1,500-400-100 mg-unit-mg Tablet 1 tab PO BID RF: 0 apixaban 2.5 mg tablet 2.5 mg PO BID RF: 0 Follow up/Referrals: Garfield Dove MD [Primary Care Provider] - Discharge Orders: Discharge (Order); Ordered 11/19/18 Ordered By: Marita Fatima Provider Discharge Instructions Diet: Low-sodium and Low-cholesterol Liquid consistency: Normal/Thin Food texture: Regular Activity: As tolerated Discharge Data Primary Care Provider: Garfield Dove Attending Provider: Marita Fatima Admit Date/Time: 11/18/18 19:29 Quality VTE Deep Vein Thrombosis/Pulmonary Embolism Present on Admission: No
--- NOTE | 2018-11-19 12:38 | P.DS_ITS ---
History of Present Illness Date Patient Seen: 11/19/18 Chief complaint: Defib shocking Narrative: This is a 78-year-old male patient with a history coronary artery disease with stent placement, [place], ischemic cardiomyopathy, atrial fibrillation and AICD implantation who presents to the ER today with frequent defibrillator discharges. The patient states he was getting out of the shower this morning when his defibrillator fired and then again a few seconds later. He reports is a fibrillator firing every few minutes prompting a call to EMS. He states he had his AICD implanted a couple of years and had an ablation done at [facility] in November 2017 which time his amiodarone was stopped. He reports a similar episode AICD firing for which he was evaluated in the ER in February of 2018 but not admitted. He additionally states he received calls from his doctor 's office in October indicating that he has gone back into atrial fibrillation to assess the status and medication. The patient continues to be anticoagulated on Eliquis. He reports worsening of his CHF recently with associated dyspnea and orthopnea. His Lasix was increased with resolution of the problem. 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 Patient is controlled on glargine and NovoLog. Discharge Providers Date of admission: 11/18/18 19:29 Primary care physician: Garfield Dove MD Consults: 11/18/18 21:03 Consult to Discharge Planning Routine Comment: Consult to Physician Routine Comment: Consulting Provider: Christiano Potter Reason for consultation: Arrythmia with inappropriate AICD firing Has provider been notified: Yes Discharge provider: Marita Fatima MD Discharge Date: 11/19/18 Summary Discharge Diagnosis: AICD inappropriate firing Chronic Atrial Fibrillation Acute on Chronic Systolic Dysfunction CAD, history of Myocardial Infarction Hyperlipidemia Ischemic cardiomyopathy, chronic Morbid obesity Chronic kidney disease stage 3 type 2 diabetes Mellitus Hospital Course: Patient was admitted to the hospital given frequent inappropriate firing of his AICD. He had a magnet placed over the AICD was placed on an amiodarone drip. Patient received 2 boluses of 150 mg of amiodarone. He had no further ventricular arrhythmias, he remained in chronic atrial fibrillation. Patient was felt to be in acute systolic heart failure upon admission. He was given IV diuresis Lasix 60 twice daily with good response. Patient was admitted to the hospital as there were no beds available at . He had no further episodes during his hospital stay. 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 At this time he is in no acute distress. His vital signs are stable. Patient will be transferred accordingly. Status at Discharge Functional status at discharge: independent ambulation Overall status at discharge: patient is back to baseline Time Spent with Patient Less than 30 minutes Exam Vital Signs (past 8 hours): - 11/19/18 05:00 11/19/18 06:00 11/19/18 07:00 Temperature 98 F Pulse Rate 80 81 80 Respiratory Rate 22 20 13 Blood Pressure 103/66 109/67 107/70 Pulse Oximetry 98 96 96 11/19/18 08:00 11/19/18 09:00 11/19/18 10:00 Temperature Pulse Rate 88 91 H 80 Respiratory Rate 22 23 21 Blood Pressure 117/69 115/97 H 127/54 L Pulse Oximetry 97 93 93 11/19/18 10:40 11/19/18 12:00 Temperature 98.6 F Pulse Rate 88 Respiratory Rate 17 Blood Pressure 109/89 Pulse Oximetry 93 98 Oxygen Delivery Method Room Air Oxygen Flow Rate 0 Narrative Exam Narrative: Pleasant gentleman in No acute distress Lungs: decreased breath sounds but clear to auscultation CV: Irregularly-irregular normal S1-S2 Abdomen: Soft nontender Extremities: No edema Objective Labs Result Diagrams: 11/18/18 13:49 11/19/18 04:45 Labs: Laboratory Results - last 24 hr 11/18/18 11/18/18 11/18/18 13:49 13:49 13:49 WBC 14.1 H RBC 4.75 Hgb 14.3 Hct 44.6 MCV 94.0 MCH 30.1 MCHC 32.1 RDW 14.3 Plt Count 262 Neut % (Auto) 66.3 Lymph % (Auto) 22.1 L [place] % (Auto) 10.6 Eos % (Auto) 0.4 L Baso % (Auto) 0.6 Neut # (Auto) 9400 H PT 14.9 H INR 1.3 APTT 31 Sodium 139 Potassium 4.1 Chloride 99 Carbon Dioxide 27 BUN 27 H Creatinine 1.80 H Estimated GFR 36.5 L BUN/Creatinine Ratio 15.0 Glucose 289 H Hemoglobin A1c Calcium 9.7 Magnesium 2.1 Total Creatine Kinase 115 CK-MB (CK-2) 2.39 H CK-MB (CK-2) Rel Index 2.1 Troponin I 0.023 B-Natriuretic Peptide Triglycerides Cholesterol LDL Cholesterol, Calc HDL Cholesterol TSH Nasal Screen MRSA (PCR) 11/18/18 11/18/18 11/18/18 13:49 13:49 20:50 WBC RBC Hgb Hct MCV MCH MCHC RDW Plt Count Neut % (Auto) Lymph % (Auto) [place] % (Auto) Eos % (Auto) Baso % (Auto) Neut # (Auto) PT INR APTT Sodium Potassium Chloride Carbon Dioxide BUN Creatinine Estimated GFR BUN/Creatinine Ratio Glucose Hemoglobin A1c Calcium Magnesium Total Creatine Kinase CK-MB (CK-2) CK-MB (CK-2) Rel Index Troponin I B-Natriuretic Peptide 653 H Triglycerides Cholesterol LDL Cholesterol, Calc HDL Cholesterol TSH 2.13 Nasal Screen MRSA (PCR) Negative for mrsa 11/19/18 11/19/18 04:45 04:45 WBC RBC Hgb Hct MCV MCH MCHC RDW Plt Count Neut % (Auto) Lymph % (Auto) [place] % (Auto) Eos % (Auto) Baso % (Auto) Neut # (Auto) PT INR APTT Sodium 139 Potassium 4.1 Chloride 101 Carbon Dioxide 28 BUN 31 H Creatinine 1.70 H Estimated GFR 39.0 L BUN/Creatinine Ratio 18.2 Glucose 210 H Hemoglobin A1c 8.5 H Calcium 9.0 Magnesium Total Creatine Kinase CK-MB (CK-2) CK-MB (CK-2) Rel Index Troponin I B-Natriuretic Peptide Triglycerides 121 Cholesterol 95 L LDL Cholesterol, Calc 36 HDL Cholesterol 35 L TSH Nasal Screen MRSA (PCR) Discharge Plan Discharge Plan Patient Disposition: [facility] Transfer to: Discharge Med Rec/Prescriptions Prescriptions: New amiodarone in dextrose 5 % 150 mg/100 mL (1.5 mg/mL) solution See Label Instructions .ROUTE .COMPLEX Qty: 1200 RF: 0 Continue lisinopril 40 mg Tablet 40 mg PO QAM Qty: 0 RF: 0 rosuvastatin [Crestor] 10 MG tablet 10 mg PO QPM Qty: 0 RF: 0 coenzyme Q10 [CoQ-10] 100 mg Capsule 100 mg PO DAILY Qty: 0 RF: 0 aspirin 81 MG tablet,delayed release (DR/EC) 81 mg OR QPM Qty: 0 RF: 0 furosemide [Lasix] 40 mg tablet 60 mg PO BID Qty: 10 RF: 0 insulin glargine 100 unit/mL solution 25 units subcut BID RF: 0 metoprolol succinate 100 mg tablet extended release 24 hr 100 mg PO BID RF: 0 insulin aspart U-100 100 unit/mL solution 40 - 50 units subcut BID RF: 0 docusate sodium 100 mg Capsule 100 mg PO DAILY RF: 0 lisinopril 40 mg Tablet 20 mg PO QPM RF: 0 [id number] serr [Osteo Bi-Flex (5-Loxin)] 1,500-400-100 mg-unit- mg Tablet 1 tab PO BID RF: 0 apixaban 2.5 mg tablet 2.5 mg PO BID RF: 0 Follow up/Referrals: Garfield Dove MD [Primary Care Provider] - Discharge Orders: Discharge (Order); Ordered 11/19/18 Ordered By: Marita Fatima Provider Discharge Instructions Diet: Low-sodium and Low-cholesterol Liquid consistency: Normal/Thin Food texture: Regular Activity: As tolerated Discharge Data Primary Care Provider: Garfield Dove Attending Provider: Marita Fatima Admit Date/Time: 11/18/18 19:29 Quality VTE Deep Vein Thrombosis/Pulmonary Embolism Present on Admission: No
[2018-11-19] MEDS: INSULIN ASPART 100 UNIT/ML INSULN PEN 6 UNIT SUBCUT (13:37)
[2018-11-19] MEDS: AMIODARONE 360 MG/200 ML PIGGYBACK 16.7 MG IV (13:37)
--- NOTE | 2018-11-19 14:54 | PC.NURSE ---
Transfer Note Patient transferred to [facility] at 1455 via ambulance. Report given to ambulance crew (Jasmin BECERRIL) and to receiving nurse at [facility] (Zoila BECERRIL) prior to transfer. All questions answered. Amiodarone gtt infusing at 16.7 ml/hr. Pt denied any chest pain or discomfort throughout shift. RA with oxygen sats 94%. Magnet in place to pacemaker. Information/transfer packet with ambulance crew.
== END 2018-11-19 14:59 | disposition short-term general hospital (02) | DRG 314 ==
LOC: ED 19:24 → ICU 11-19 07:43
PROVIDERS: Nurse Practitioner Adult Health; Admitting Provider Internal Medicine; Emergency Provider Emergency Medicine; PCP Internal Medicine; Visit Provider Internal Medicine
DX: T82.199A Other mechanical complication of unspecified cardiac device, initial encounter (principal); I50.23 Acute on chronic systolic (congestive) heart failure; E89.1 Postprocedural hypoinsulinemia; I13.0 Hypertensive heart and chronic kidney disease with heart failure and stage 1 through stage 4 chronic kidney disease, or unspecified chronic kidney disease; I25.5 Ischemic cardiomyopathy; E13.9 Other specified diabetes mellitus without complications; Z90.411 Acquired partial absence of pancreas; Z79.4 Long term (current) use of insulin; N18.3 Chronic kidney disease, stage 3 (moderate); G47.33 Obstructive sleep apnea (adult) (pediatric); F51.01 Primary insomnia; Z87.891 Personal history of nicotine dependence; E78.5 Hyperlipidemia, unspecified; I48.0 Paroxysmal atrial fibrillation; I25.10 Atherosclerotic heart disease of native coronary artery without angina pectoris
CPT/HCPCS: 36415; 36591; 71045; 80048; 80053; 80061; 82550; 82553; 82962; 83036; 83735; 83880; 84443; 84484; 85025; 85610; 85730; 87797; 93005; 93041; 96361; 96365; 96375; 96376; 99283; 99285; 99291; J0153; J0282; J1940; J2060; J3010

== ENCOUNTER → 2018-11-23 16:27 | Outpatient (CLI) | payer MEDICARE, OTHER, SELFPAY ==
[2018-11-18 20:34] VITALS: BMI 28.7
[2018-11-23 18:15] LABS: BUN Creatinine Ratio 19.4 (6-22); Blood Urea Nitrogen 33 mg/dL (9-20); Calcium 9.5 mg/dL (8.4-10.2); Carbon Dioxide 32 mmol/L (22-32); Chloride 100 mmol/L (98-107); Glucose 256 mg/dL (80-110); HEMOLYSIS < 15 (0-50); Potassium 5.2 mmol/L (3.4-5.1); Sodium 141 mmol/L (137-145)
== END ==
PROVIDERS: PCP Internal Medicine; Visit Provider Internal Medicine
DX: N18.9 Chronic kidney disease, unspecified (principal)
CPT/HCPCS: 36415; 80048

== ENCOUNTER → 2018-12-01 10:45 | Outpatient (CLI) | payer MEDICARE, OTHER, SELFPAY ==
[2018-11-18 20:34] VITALS: BMI 28.7
[2018-12-01 11:50] LABS: B Type Natriuretic Peptide 1080 (<100)
[2018-12-01 11:56] LABS: BUN Creatinine Ratio 13.1 (6-22); Blood Urea Nitrogen 21 mg/dL (9-20); Calcium 9.8 mg/dL (8.4-10.2); Carbon Dioxide 31 mmol/L (22-32); Chloride 99 mmol/L (98-107); Estimated Glomerular Filt Rate 41.8 mL/min (>60); Glucose 157 mg/dL (80-110); HEMOLYSIS < 15 (0-50); Potassium 5.9 mmol/L (3.4-5.1); Sodium 139 mmol/L (137-145)
== END ==
PROVIDERS: PCP Internal Medicine; Visit Provider Internal Medicine
DX: N18.9 Chronic kidney disease, unspecified (principal); I25.10 Atherosclerotic heart disease of native coronary artery without angina pectoris
CPT/HCPCS: 36415; 80048; 83880

== ENCOUNTER → 2018-12-07 10:53 | Outpatient (CLI) | payer MEDICARE, OTHER, SELFPAY ==
[2018-11-18 20:34] VITALS: BMI 28.7
[2018-12-07 13:31] LABS: BUN Creatinine Ratio 16.7 (6-22); Blood Urea Nitrogen 25 mg/dL (9-20); Calcium 9.5 mg/dL (8.4-10.2); Carbon Dioxide 33 mmol/L (22-32); Chloride 100 mmol/L (98-107); Glucose 133 mg/dL (80-110); HEMOLYSIS < 15 (0-50); Potassium 5.2 mmol/L (3.4-5.1); Sodium 141 mmol/L (137-145)
== END ==
PROVIDERS: PCP Internal Medicine; Visit Provider Internal Medicine
DX: I50.22 Chronic systolic (congestive) heart failure (principal); E78.5 Hyperlipidemia, unspecified
CPT/HCPCS: 36415; 80048

== ENCOUNTER 2019-03-13 14:18 | Emergency (ER) | payer MEDICARE, OTHER, SELFPAY ==
[2018-11-18 20:34] VITALS: BMI 28.7
[2019-03-13 14:20] VITALS: BP 147/85; PULSE 74; RESP 23; TEMP 36.7; O2SAT 96; BMI 29.2
--- NOTE | 2019-03-13 14:25 | ED.CHESTPAIN ---
HPI - Chest Pain General Chief Complaint: Arrhythmia/Palpitations Stated Complaint: ICD shocked patient Time Seen by Provider: 03/13/19 14:23 Source: patient and EMS Limitations: no limitations History of Present Illness HPI narrative: Is a sha 78-year-old male who was out mowing his lawn with a self propelled lawnmower when he started getting short of breath and dizzy. At that time he knew that his ICD was about to discharge which it did. It only went off once. He was here in November when asked multiple times. He is overall feeling much better. He denies any chest pain now no shortness of breath. MD complaint: chest pain Duration: now resolved Related Data Home Medications Medication Instructions Recorded Confirmed lisinopril 40 mg PO QAM #0 01/20/08 11/18/18 coenzyme Q10 [CoQ-10] 100 mg PO DAILY #0 07/15/12 11/18/18 rosuvastatin [Crestor] 10 mg PO QPM #0 07/15/12 11/18/18 aspirin 81 mg OR QPM #0 12/11/17 11/18/18 apixaban 2.5 mg PO BID 11/18/18 11/18/18 docusate sodium 100 mg PO DAILY 11/18/18 11/18/18 [id number] serr 1 tab PO BID 11/18/18 11/18/18 [Osteo Bi-Flex (5-Loxin)] insulin aspart U-100 40 - 50 units SUBCUT BID 11/18/18 11/18/18 insulin glargine 25 units SUBCUT BID 11/18/18 11/18/18 lisinopril 20 mg PO QPM 11/18/18 11/18/18 metoprolol succinate 100 mg PO BID 11/18/18 11/18/18 Previous Rx's Medication Instructions Recorded furosemide [Lasix] 60 mg PO BID #10 tab 11/15/18 amiodarone in dextrose 5 % See Rx Instructions .ROUTE 11/19/18 .COMPLEX #1200 ml Allergies Allergy/AdvReac Type Severity Reaction Status Date / Time amoxicillin Allergy Mild DIARRHEA Verified 11/18/18 14:25 naproxen Allergy Mild DIARRHEA Verified 11/18/18 14:25 Penicillins [PENICILLINS] Allergy Unknown Verified 11/18/18 14:25 Review of Systems Review of Systems GENERAL: Denies chills, fatigue, malaise, fever, sweats, travel HEENT: Denies sinus pain, ear pain, sore throat, difficulty swallowing, neck pain RESPIRATORY: Denies dyspnea, cough, wheezing, hemoptysis, sputum. CARDIOVASCULAR: See HPI GASTROINTESTINAL: Denies nausea, vomiting, abdominal pain, diarrhea, constipation, melena. : Denies dysuria, frequency, incontinence, hematuria, urinary retention, flank pain. MUSCULOSKELETAL: Denies weakness, joint pain, or bony pain SKIN: No rash, no erythema, no pruritus NEUROLOGIC: Denies weakness, dizziness, headache, numbness, change in speech, confusion PSYCHIATRIC: No concerning psychosocial issues. 12 point review of systems is negative except for those stated above and HPI [facility] Medical History Obstructive sleep apnea of adult (Chronic) Primary insomnia (Chronic) Atrial fibrillation (Acute) Myocardial infarction (Acute) Hyperlipidemia (Chronic) Hypertension (Chronic) Ischemic cardiomyopathy (Chronic) Obesity (Chronic) Snoring (Chronic) Type 2 diabetes mellitus (Chronic) Surgical History History of ERCP (Acute) History of cholecystectomy (Acute) History of hernia repair (Acute) History of left knee replacement (Acute) History of partial knee replacement (Acute) History of resection of pancreas (Acute) History of splenectomy (Acute) S/P implantation of automatic cardioverter/defibrillator (AICD) (Acute) Family History (Updated 11/18/18 @ 22:09 by JESUSITA Gustafson) Father No problems noted. Mother Leukemia Social History household members: spouse Smoking Status: Former smoker alcohol intake: former Family History Father No problems noted. Mother Leukemia Social History household members: spouse Smoking Status: Former smoker alcohol intake: former Exam Initial Vital Signs Initial Vital Signs: Vital Signs Temperature 98.0 F 03/13/19 14:20 Pulse Rate 74 03/13/19 14:20 Respiratory Rate 23 03/13/19 14:20 Blood Pressure 147/85 H 03/13/19 14:20 Pulse Oximetry 96 03/13/19 14:20 GENERAL: Alert pleasant elderly male no acute distress HEENT: Head atraumatic,EOMI, pupils reactive, face symmetric, moist mucous membranes CARDIOVASCULAR: Regular rate and rhythm without murmurs, rubs or gallops. RESPIRATORY: Breath sounds equal bilaterally, no wheezes rales or rhonchi. ABDOMEN: Soft, nontender. Normoactive bowel sounds all 4 quadrants. No guarding or rebound. EXTREMITIES: Normal range of motion, no clubbing or edema. Neurovascularly intact NEUROLOGICAL: Alert and oriented x4.Normal gait and speech. SKIN: Warm, dry, no laceration, no petechiae, no rashes or lesions. Course Orders Ordered: ED Orders 03/13/19 14:24 Complete Blood Count AUTO DIFF Stat Comprehensive Metabolic Panel Stat Lipase Stat Partial Thromboplastin Time Stat Prothrombin Time INR Stat Troponin & CK Cardiac Panel Stat 03/13/19 14:26 XR chest 1V Stat EKG-12 Lead Stat Discontinued Medications Sodium Chloride (Normal Saline 0.9%) 1,000 mls @ 150 mls/hr IV CONT STEPHANI Last Infusion: 03/13/19 16:13 Dose: 0 mls/hr Admin: 03/13/19 14:58 Dose: 150 mls/hr Vital Signs - 8 hr 03/13/19 14:20 03/13/19 14:30 03/13/19 15:00 Temperature 98.0 F Pulse Rate 74 63 65 Respiratory Rate 23 20 16 Blood Pressure 147/85 H Blood Pressure [Left Arm] 127/76 118/63 Pulse Oximetry 96 94 94 03/13/19 15:31 03/13/19 16:00 Temperature Pulse Rate 60 60 Respiratory Rate 16 18 Blood Pressure Blood Pressure [Left Arm] 135/68 120/57 L Pulse Oximetry 95 93 MDM - Chest Pain Lab Data Attestation: I reviewed the patient's lab results. Result diagrams: 03/13/19 14:24 03/13/19 14:24 Lab Results 03/13/19 03/13/19 03/13/19 Range/Units 14:24 14:24 14:24 WBC 13.3 H (4.5-11.0) X10^3/uL RBC 5.42 (4.5-5.9) X10^6/uL Hgb 16.0 (13.5-17.5) g/dL Hct 50.8 (41-53) % MCV 93.7 (80-100) fL MCH 29.6 (26-34) PG MCHC 31.6 (30-36) % RDW 16.5 H (11.6-14.8) % Plt Count 235 (150-400) X10^3/uL Neut % (Auto) 56.7 (50-75) % Lymph % (Auto) 31.1 (25-40) % [place] % (Auto) 10.5 (3-14) % Eos % (Auto) 0.9 L (2-4) % Baso % (Auto) 0.8 (0-2) % Neut # (Auto) 7500 H (9091-3538) /uL Lymph # (Auto) 4100 (9394-2784) /uL [place] # (Auto) 1400 H (0-900) /uL Eos # (Auto) 100 (0-450) /uL Baso # (Auto) 100 (0-100) /uL PT 12.8 H (10.1-12.7) SECONDS INR 1.1 (0.9-1.3) APTT 28 D (26.4-36.2) SECONDS Sodium 141 (137-145) mmol/L Potassium 4.8 (3.4-5.1) mmol/L Chloride 102 (98-107) mmol/L Carbon Dioxide 26 (22-32) mmol/L BUN 25 H (9-20) mg/dL Creatinine 1.70 H (0.66-1.25) mg/dL Estimated GFR 39.0 L (>60) mL/min BUN/Creatinine Ratio 14.7 (6-22) Glucose 198 H (80-110) mg/dL Calcium 9.4 (8.4-10.2) mg/dL Total Bilirubin 0.5 (0.2-1.3) mg/dL AST 27 (17-59) IU/L ALT 26 (21-72) IU/L Alkaline Phosphatase 73 (38-126) U/L Total Creatine Kinase 86 (55-170) U/L CK-MB (CK-2) TNP CK-MB (CK-2) Rel Index TNP Troponin I 0.024 (0.01-0.034) ng/mL Total Protein 7.8 (6.3-8.2) g/dL Albumin 4.5 (3.5-5.0) g/dL Globulin 3.3 (1.7-4.1) g/dL Albumin/Globulin Ratio 1.4 (1.0-2.8) Lipase 63 (23-300) U/L Imaging Data Chest x-ray: Radiologist's impression: PROCEDURE: XR CHEST 1V INDICATIONS: chest pain TECHNIQUE: One view of the chest was acquired. COMPARISON: [facility], , XR CHEST 1V, 11/18/2018, 14:04. FINDINGS: Surgical changes and devices: There is a right-sided cardiac pacer/defibrillator. Lungs and pleura: Lungs are clear. No pleural effusions or pneumothorax. Mediastinum: Mediastinal contours appear normal. Heart size is enlarged. There is aortic atherosclerosis. Bones and chest wall: No suspicious bony lesions. Overlying soft tissues appear unremarkable. IMPRESSION: Cardiomegaly without overt heart failure. No definite pneumonia. Dictated by: Fred Fregoso M.D. on 03/13/2019 at 13:54 ECG Data Attestation: I personally reviewed and interpreted this ECG as follows: Prior ECG tracings: available for review Interpretation: Sinus rhythm right bundle-branch block noted rate [address] changes. Much better from previous EKGs MDM Narrative Medical decision making narrative: Jono is was able to interrogate device. Patient was appropriately shocked once after was seemed to be SVT. Correlates with his lawn mowing activity. I have discussed with patient that he does not need to mow the lawn and longer. Patient overall feeling much better of blood work with reassuring He had ATP x5 and shocked once at 30 joules. No changes made to divide Discharge Plan Departure Patient Disposition: Home Clinical Impression: ICD (implantable cardioverter-defibrillator) discharge Discharge Date/Time: 03/13/19 16:15 Interventions: ED Discharge Assessment Last Done: 03/13/19 16:14 Instructions: DI for Automatic Cardioverter/Defibrillator Implantation Activity Restrictions/Additional Instructions: *You have been diagnosed with ICD discharge *What to do: Your shocked appropriately today. I recommend no strenuous activity including a lawn mowing. Your was right. *Continue to take medications as directed *Follow up with your primary care provider in 2-3 days *Return to ER if you should have recurrent ICD discharge, chest pain, shortness of breath or any new, worsening or concerning symptoms Prescriptions: No Action lisinopril 40 mg Tablet 40 mg PO QAM Qty: 0 RF: 0 rosuvastatin [Crestor] 10 MG tablet 10 mg PO QPM Qty: 0 RF: 0 coenzyme Q10 [CoQ-10] 100 mg Capsule 100 mg PO DAILY Qty: 0 RF: 0 aspirin 81 MG tablet,delayed release (DR/EC) 81 mg OR QPM Qty: 0 RF: 0 furosemide [Lasix] 40 mg tablet 60 mg PO BID Qty: 10 RF: 0 insulin glargine 100 unit/mL solution 25 units subcut BID RF: 0 metoprolol succinate 100 mg tablet extended release 24 hr 100 mg PO BID RF: 0 insulin aspart U-100 100 unit/mL solution 40 - 50 units subcut BID RF: 0 docusate sodium 100 mg Capsule 100 mg PO DAILY RF: 0 lisinopril 40 mg Tablet 20 mg PO QPM RF: 0 [id number] serr [Osteo Bi-Flex (5-Loxin)] 1,500-400-100 mg-unit-mg Tablet 1 tab PO BID RF: 0 apixaban 2.5 mg tablet 2.5 mg PO BID RF: 0 amiodarone in dextrose 5 % 150 mg/100 mL (1.5 mg/mL) solution See Rx Instructions .ROUTE .COMPLEX Qty: 1200 RF: 0 Referrals: Garfield Dove MD [Primary Care Provider] -
[2019-03-13 14:30] VITALS: BP 127/76; PULSE 63; RESP 20; O2SAT 94
[2019-03-13 14:34] LABS: Add Manual Diff / Slide Review NO; Basophils Absolute Auto 100 /uL (0-100); Basophils Percent Auto 0.8 % (0-2); Eosinophils Absolute Auto 100 /uL (0-450); Eosinophils Percent Auto 0.9 % (2-4); Hematocrit 50.8 % (41-53); Lymphocytes Absolute Auto 4100 /uL (1100-4500); Lymphocytes Percent Auto 31.1 % (25-40); Mean Corpuscular HGB Conc 31.6 % (30-36); Mean Corpuscular Hemoglobin 29.6 PG (26-34); Mean Corpuscular Volume 93.7 fL (80-100); Monocytes Absolute Auto 1400 /uL (0-900); Monocytes Percent Auto 10.5 % (3-14); Neutrophils Absolute Auto 7500 /uL (1500-7000); Neutrophils Percent Auto 56.7 % (50-75); Platelet Count 235 X10^3/uL (150-400); Red Blood Cell Count 5.42 X10^6/uL (4.5-5.9); Red Cell Distribution Width 16.5 % (11.6-14.8); White Blood Cell Count 13.3 X10^3/uL (4.5-11.0)
--- NOTE | 2019-03-13 14:35 | PC.NURSE ---
states, while moving the lawn developed shortness of breath, then aicd fired.
[2019-03-13 14:43] LABS: Alanine Aminotransferase 26 IU/L (21-72); Albumin 4.5 g/dL (3.5-5.0); Albumin Globulin Ratio 1.4 (1.0-2.8); Alkaline Phosphatase 73 U/L (38-126); Aspartate Aminotransferase 27 IU/L (17-59); BUN Creatinine Ratio 14.7 (6-22); Bilirubin Total 0.5 mg/dL (0.2-1.3); Blood Urea Nitrogen 25 mg/dL (9-20); Calcium 9.4 mg/dL (8.4-10.2); Carbon Dioxide 26 mmol/L (22-32); Chloride 102 mmol/L (98-107); Creatine Kinase 86 U/L (55-170); Globulin 3.3 g/dL (1.7-4.1); Glucose 198 mg/dL (80-110); HEMOLYSIS 23 (0-50); Lipase 63 U/L (23-300); Potassium 4.8 mmol/L (3.4-5.1); Sodium 141 mmol/L (137-145); Total Protein 7.8 g/dL (6.3-8.2)
[2019-03-13 14:55] LABS: Troponin I 0.024 ng/mL (0.01-0.034)
[2019-03-13] MEDS: SODIUM CHLORIDE 0.9% 1,000 ML 150 ML IV (14:58)
[2019-03-13 15:00] VITALS: BP 118/63; PULSE 65; RESP 16; O2SAT 94
[2019-03-13 15:06] LABS: INR 1.1 (0.9-1.3); Prothrombin Time 12.8 SECONDS (10.1-12.7)
[2019-03-13 15:09] LABS: PTT Partial Thromboplastin Tim 28 SECONDS (26.4-36.2)
[2019-03-13 15:31] VITALS: BP 135/68; PULSE 60; RESP 16; O2SAT 95
[2019-03-13 16:00] VITALS: BP 120/57; PULSE 60; RESP 18; O2SAT 93
== END 2019-03-13 16:15 | disposition home or self-care (01) ==
PROVIDERS: Emergency Provider Emergency Medicine; PCP Internal Medicine
DX: T82.198A Other mechanical complication of other cardiac electronic device, initial encounter (principal); R07.89 Other chest pain; R06.02 Shortness of breath; R42 Dizziness and giddiness
CPT/HCPCS: 36591; 71045; 80053; 82550; 83690; 84484; 85025; 85610; 85730; 93005; 96360; 99283; 99285

== ENCOUNTER → 2019-07-22 12:32 | Outpatient (CLI) | payer MEDICARE, OTHER, SELFPAY ==
[2018-11-18 20:34] VITALS: BMI 28.7
[2019-07-22 13:41] LABS: Alanine Aminotransferase 32 IU/L (21-72); Albumin Globulin Ratio 1.4 (1.0-2.8); Alkaline Phosphatase 69 U/L (38-126); Aspartate Aminotransferase 30 IU/L (17-59); BUN Creatinine Ratio 11.9 (6-22); Bilirubin Total 0.8 mg/dL (0.2-1.3); Blood Urea Nitrogen 19 mg/dL (9-20); Calcium 9.8 mg/dL (8.4-10.2); Carbon Dioxide 31 mmol/L (22-32); Chloride 100 mmol/L (98-107); Estimated Glomerular Filt Rate 41.8 mL/min (>60); Globulin 2.8 g/dL (1.7-4.1); Glucose 198 mg/dL (80-110); HEMOLYSIS 15 (0-50); Potassium 5.3 mmol/L (3.4-5.1); Sodium 140 mmol/L (137-145); Total Protein 6.8 g/dL (6.3-8.2)
[2019-07-22 14:08] LABS: Thyroid Stimulating Hormone 1.08 uIU/mL (0.47-4.68)
== END ==
PROVIDERS: PCP Internal Medicine; Visit Provider Physician Assistant Medical
DX: R06.09 Other forms of dyspnea (principal)
CPT/HCPCS: 36415; 80053; 84443

== ENCOUNTER → 2019-07-30 12:36 | Outpatient (CLI) | payer MEDICARE, OTHER, SELFPAY ==
[2018-11-18 20:34] VITALS: BMI 28.7
--- NOTE | 2019-08-09 11:12 | PM.PFT.1 ---
Pulmonary Function Test Referral & Results Date Patient Seen: 07/30/19 Requesting provider: Scott Garcia Results: The spirometry demonstrates an FVC of 2.29 L which is 55% of predicted. The FEV1 was measured at 1.36 L which is 46% of predicted. The FEV1/FVC ratio was 59 which is 83% of predicted. Following the administration of bronchodilator there was 9% improvement in FEV1 and a 37% improvement in FEF 25-75%. Lung volumes show an SVC of 2.30 L which is 50% of predicted. The diffusing capacity was measured at 23.76 which is 70% of predicted. No hemoglobin value was provided, so no correction for potential anemia could be made, if appropriate. The maximum voluntary ventilation was reduced Interpretation: This study demonstrates moderately severe obstructive lung disease with limited evidence of benefit following bronchodilator particularly small airway flow based on improvement in FEF 25-75% There is also severe restrictive lung disease present based on reduction SVC There is also mild reduction in diffusing capacity suggesting some element of disease at the capillary alveolar level Compared to PFTs performed in August 2016, current study shows decline in lung volumes and diffusing capacity Clinical correlation suggested
== END ==
PROVIDERS: PCP Internal Medicine; Referring Provider Hospitalist; Visit Provider Physician Assistant Medical
DX: R06.09 Other forms of dyspnea (principal); J44.9 Chronic obstructive pulmonary disease, unspecified
CPT/HCPCS: 94060; 94726; 94729

== ENCOUNTER → 2019-09-22 09:36 | Outpatient (CLI) | payer MEDICARE, OTHER, SELFPAY ==
[2018-11-18 20:34] VITALS: BMI 28.7
[2019-09-22 11:21] LABS: BUN Creatinine Ratio 13.9 (6-22); Blood Urea Nitrogen 25 mg/dL (9-20); Calcium 9.7 mg/dL (8.4-10.2); Carbon Dioxide 33 mmol/L (22-32); Chloride 99 mmol/L (98-107); Cholesterol 165 mg/dL (140-199); Estimated Glomerular Filt Rate 36.4 mL/min (>60); Glucose 110 mg/dL (80-110); HDL Cholesterol 63 mg/dL (40-60); HEMOLYSIS < 15 (0-50); LDL Cholesterol Calculated 76 mg/dL (<100); Potassium 4.6 mmol/L (3.4-5.1); Sodium 138 mmol/L (137-145); Triglycerides 129 mg/dL (35-150)
== END ==
PROVIDERS: Family Provider Internal Medicine; PCP Internal Medicine; Visit Provider Hospitalist
DX: I25.10 Atherosclerotic heart disease of native coronary artery without angina pectoris (principal); I25.5 Ischemic cardiomyopathy
CPT/HCPCS: 36415; 80048; 80061

== ENCOUNTER → 2019-09-22 10:02 | Outpatient (CLI) | payer MEDICARE, OTHER, SELFPAY ==
[2018-11-18 20:34] VITALS: BMI 28.7
--- NOTE | 2019-09-22 | DI.RAD.S_ITS ---
PROCEDURE: XR CHEST 2V INDICATIONS: SHORTNESS OF BREATH TECHNIQUE: 2 views of the chest were acquired. COMPARISON: [facility], , XR CHEST 1V, 03/13/2019, 14:30. FINDINGS: Surgical changes and devices: Left chest cardiac pacer device with leads projecting to the right atrium and right ventricle. Lungs and pleura: No pleural effusion or pneumothorax. There is a hazy opacity projecting over the lateral left lung base. Mediastinum: There is calcified plaque of the aorta. Mediastinal contours are normal. Heart size is normal. Bones and chest wall: There are dense anterior flowing osteophytes of the thoracic spine, most consistent with diffuse idiopathic skeletal hyperostosis/chronic degenerative change. IMPRESSION: Hazy opacity projecting over the lateral left lung base, which may represent atelectasis, aspiration, or pneumonia in the appropriate clinical setting. Clinical correlation recommended. Dictated by: Jerry Thomas M.D. on 09/22/2019 at 14:33 Approved by: Jerry Thomas M.D. on 09/22/2019 at 14:36
== END ==
PROVIDERS: Family Provider Internal Medicine; PCP Internal Medicine; Visit Provider Hospitalist
DX: R06.02 Shortness of breath (principal); I25.10 Atherosclerotic heart disease of native coronary artery without angina pectoris; I25.5 Ischemic cardiomyopathy; I70.0 Atherosclerosis of aorta; Z95.0 Presence of cardiac pacemaker; Z79.899 Other long term (current) drug therapy
CPT/HCPCS: 36415; 71046; 80048; 80061

== ENCOUNTER → 2020-04-21 14:27 | Outpatient (CLI) | payer MEDICARE, OTHER, SELFPAY ==
[2018-11-18 20:34] VITALS: BMI 28.7
--- NOTE | 2020-04-21 14:36 | DI.CT.S_ITS ---
PROCEDURE: CT CHEST WO CON INDICATIONS: Other assisted (current) drug therapy TECHNIQUE: Noncontrast 5 mm thick sections acquired from the pulmonary apices to the posterior costophrenic angles. 1 mm lung window, 5 mm thick coronal and sagittal and 7 mm axial MIP reformats were then acquired. For radiation dose reduction, the following was used: automated exposure control, adjustment of mA and/or kV according to patient size. COMPARISON: None. FINDINGS: Image quality: Excellent. Lungs and pleura: No acute consolidation. Scattered calcified granulomas. No pleural effusions or pneumothorax. Central and peripheral airways are patent and normal in caliber. Mediastinum: Heart size is normal. No pericardial effusion. No mediastinal adenopathy by size criteria. Thoracic aorta and central pulmonary arteries are normal in size. Esophagus is normal in caliber. No hiatal hernia. Bones and chest wall: No suspicious bony lesions. No vertebral body compression fractures. No axillary or supraclavicular adenopathy by size criteria. Left-sided intramuscular lipoma incidentally noted. Prominent paravertebral osteophytes and anterior spinal ossification Abdomen: Visualized upper abdominal solid organs and bowel loops appear normal in the absence of contrast. IMPRESSION: No acute consolidation. Mild scattered scarring, atelectasis and sequela of chronic granulomatous disease. Coronary artery disease Dictated by: Oumar Cochran M.D. on 04/21/2020 at 15:41 Approved by: Oumar Cochran M.D. on 04/21/2020 at 15:47
== END ==
PROVIDERS: Family Provider Internal Medicine; PCP Internal Medicine; Referring Provider Hospitalist; Visit Provider Hospitalist
DX: R06.02 Shortness of breath (principal); J98.11 Atelectasis; J98.4 Other disorders of lung; I25.10 Atherosclerotic heart disease of native coronary artery without angina pectoris; Z79.899 Other long term (current) drug therapy
CPT/HCPCS: 71250

== ENCOUNTER → 2020-04-24 09:40 | Outpatient (CLI) | payer MEDICARE, OTHER, SELFPAY ==
[2018-11-18 20:34] VITALS: BMI 28.7
[2020-04-24 12:15] LABS: Hemoglobin A1C% w Est Avg Glu 8.3 % (4.0-6.0)
[2020-04-24 12:43] LABS: Alanine Aminotransferase 27 IU/L (<50); Albumin 3.8 g/dL (3.5-5.0); Albumin Globulin Ratio 1.4 (1.0-2.8); Alkaline Phosphatase 68 U/L (38-126); Aspartate Aminotransferase 32 IU/L (17-59); BUN Creatinine Ratio 13.4 (6-22); Bilirubin Total 0.7 mg/dL (0.2-1.3); Blood Urea Nitrogen 20 mg/dL (9-20); Calcium 9.3 mg/dL (8.4-10.2); Carbon Dioxide 27 mmol/L (22-32); Chloride 102 mmol/L (98-107); Estimated Glomerular Filt Rate 45.3 mL/min (>60); Globulin 2.7 g/dL (1.7-4.1); Glucose 123 mg/dL (80-110); HEMOLYSIS < 15 (0-50); Sodium 137 mmol/L (137-145); Total Protein 6.5 g/dL (6.3-8.2)
== END ==
PROVIDERS: Family Provider Internal Medicine; PCP Internal Medicine; Referring Provider Internal Medicine; Visit Provider Internal Medicine
DX: I50.22 Chronic systolic (congestive) heart failure (principal); E11.21 Type 2 diabetes mellitus with diabetic nephropathy
CPT/HCPCS: 36415; 80053; 83036

== ENCOUNTER → 2020-10-31 14:32 | Outpatient (CLI) | payer MEDICARE, OTHER, SELFPAY ==
[2018-11-18 20:34] VITALS: BMI 28.7
[2020-10-31 16:05] LABS: Alanine Aminotransferase 26 IU/L (<50); Albumin 4.2 g/dL (3.5-5.0); Albumin Globulin Ratio 1.3 (1.0-2.8); Alkaline Phosphatase 70 U/L (38-126); Aspartate Aminotransferase 32 IU/L (17-59); BUN Creatinine Ratio 15.4 (6-22); Bilirubin Total 0.6 mg/dL (0.2-1.3); Blood Urea Nitrogen 24 mg/dL (9-20); Calcium 9.4 mg/dL (8.4-10.2); Carbon Dioxide 32 mmol/L (22-32); Chloride 102 mmol/L (98-107); Estimated Glomerular Filt Rate 42.8 mL/min (>60); Globulin 3.2 g/dL (1.7-4.1); Glucose 244 mg/dL (80-110); HEMOLYSIS < 15 (0-50); Potassium 4.4 mmol/L (3.4-5.1); Sodium 138 mmol/L (137-145); Total Protein 7.4 g/dL (6.3-8.2)
[2020-10-31 16:34] LABS: Thyroid Stimulating Hormone 1.24 uIU/mL (0.47-4.68)
== END ==
PROVIDERS: Family Provider Internal Medicine; PCP Internal Medicine; Referring Provider Internal Medicine Cardiovascular Disease; Visit Provider Internal Medicine Cardiovascular Disease
DX: I48.0 Paroxysmal atrial fibrillation (principal)
CPT/HCPCS: 36415; 80053; 84443

== ENCOUNTER → 2020-11-15 13:30 | Outpatient (CLI) | payer MEDICARE, OTHER, SELFPAY ==
[2018-11-18 20:34] VITALS: BMI 28.7
[2020-11-15 14:39] LABS: COVID19 -Nasal RAPID Negative (Negative)
== END ==
PROVIDERS: Family Provider Internal Medicine; PCP Internal Medicine; Referring Provider Internal Medicine; Visit Provider Internal Medicine
DX: Z20.822 Contact with and (suspected) exposure to COVID-19 (principal)
CPT/HCPCS: 87635; C9803

== ENCOUNTER → 2020-11-28 15:45 | Outpatient (CLI) | payer MEDICARE, OTHER, SELFPAY ==
[2018-11-18 20:34] VITALS: BMI 28.7
--- NOTE | 2020-11-28 | DI.ECHO.S_ITS ---
[facility] +---------+ : : [address] : [address] : : : : [id number] : : : : Phone: [phone] Echocardiogram Report + + :Name: FIOR RIOS Study Date: 11/28/2020 Height: 71 in : :[facility] ReadingLocation: Weight: 215 lb : : Gender: Male BSA: 2.2 m2 : :: 1940 Age: 80 yrs BP: 132/81 mmHg: :Reason For Study: ISCHEMIC CARDIOMYOPATHY : :Ordering Physician: MAXIME, : :GREGORY Performed By: Carolee López : :Referring: GREGORY SWARTZ : + + Interpretation Summary The left ventricle is moderately dilated. Left ventricular end-diastolic dimension 6.7 cm. In November 2018, it was 5.7 cm in diameter. The ejection fraction is estimated to be 30-35%. There has been no significant change since the previous exam. There is mild to moderate global hypokinesis of the left ventricle. There is severe hypokinesis to akinesis of the inferior and inferoposterior wall, particularly proximally, consistent with scar, but unchanged from the previous study Diastolic parameters suggest a pseudonormalization pattern, consistent with probable elevated filling pressures. The right ventricle is normal in size and function. Right ventricular systolic function has increased since previous exam. There is a pacemaker lead in the right ventricle. There is moderate to severe mitral regurgitation. The mitral regurgitant jet is eccentrically directed. Flow reversal noted in pulmonary veins consistent with significant mitral regurgitation. No significant change from the previous study. Suspect PMD of posterior mitral leaflet. There is mild tricuspid regurgitation. Pulmonary artery pressures cannot be estimated because of the lack of a measurable TR jet velocity but the IVC suggests a CVP of around 8 mmHg. Compared to the prior echo exam, there has been a decrease in TR severity. Right atrial pressure decreased from 15 mmHg to 8 mmHg. Procedure: A two-dimensional transthoracic echocardiogram with color flow and Doppler was performed. The study quality was technically adequate. Comparison is made with the echocardiogram of 11/20/2018. The patient has a paced rhythm. The heart rate ranged between 60 bpm during the study. Left Ventricle: There is normal left ventricular wall thickness. The left ventricle is moderately dilated. There is no thrombus. The ejection fraction is estimated to be 30-35%. There has been no significant change since the previous exam. Septal motion is consistent with conduction abnormality. There is mild to moderate global hypokinesis of the left ventricle. There is severe hypokinesis to akinesis of the inferior and inferoposterior wall, particularly proximally, consistent with scar, but unchanged from the previous study. Diastolic parameters suggest a pseudonormalization pattern, consistent with probable elevated filling pressures. Right Ventricle: The right ventricle is normal in size and function. There is a pacemaker lead in the right ventricle. Right ventricular systolic function has increased since previous exam. Atria: The left atrium is severely dilated. The left atrium has mildly increased in size since the prior echo exam. There is a catheter/pacemaker lead seen in the right atrium. There is no Doppler evidence for an interatrial shunt. Mitral Valve: There is mild mitral annular calcification. The mitral valve leaflets appear mildly thickened, but open well. Tented mitral leaflets. There is moderate to severe mitral regurgitation. The mitral regurgitant jet is eccentrically directed. PISA could not be reliably performed due to 'eccentric jet'. Flow reversal noted in pulmonary veins consistent with significant mitral regurgitation. Aortic Valve: The aortic valve is trileaflet. The aortic valve opens well. There is discrete nodular thickening of the non- coronary cusp. There is no aortic valve stenosis. No aortic regurgitation is present. Tricuspid Valve: The tricuspid valve is normal in structure and function. There is mild tricuspid regurgitation. Pulmonary artery pressures cannot be estimated because of the lack of a measurable TR jet velocity but the IVC suggests a CVP of around 8 mmHg. Compared to the prior echo exam, there has been a decrease in TR severity. Pulmonic Valve: The pulmonic valve leaflets are thin and pliable; valve motion is normal. There is mild pulmonic regurgitation. Great Vessels: The aortic root is normal size. There is aortic root sclerosis/calcification. The dimensions of the ascending aorta are normal. The IVC is dilated (diameter is greater than 2.1 cm) yet it collapses greater than 50% with a sniff. This suggests a right atrial pressure of 8 mm Hg. Pericardium/ Pleura There is no pericardial effusion. There is no pleural effusion. MMode/2D Measurements & Calculations LVIDd: 6.7 cm LVOT diam: 2.1 cm LVIDs: 5.6 cm Ao root diam: 3.2 cm FS: 15.7 % asc Aorta Diam: 3.3 cm EPSS: 2.0 cm IVSd: 1.1 cm LVPWd: 0.73 cm LV nunez. diameter/BSA (cm/m^2): 3.1 LV sys. diameter/BSA (cm/m^2): 2.6 LA A2 area: 31.3 cm2 RA long axis: 5.5 cm LA A4 area: 32.2 cm2 RA area: 25.5 cm2 LA length (vol): 7.2 cm RA vol: 101.3 ml LA vol: 118.9 ml RA : 46.6 ml/m2 LA vol index: 54.7 ml/m2 IVC diam: 2.3 cm RVD1 (basal): 3.6 cm TAPSE: 2.3 cm Doppler Measurements & Calculations Ao V2 max: 128.9 cm/sec LVOT Max Joshua: 60.1 cm/sec Ao V2 mean: 94.5 cm/sec LV V1 max P.4 mmHg Ao max P.6 mmHg LV V1 VTI: 13.2 cm Ao mean P.9 mmHg (I,D): 1.7 cm2 Ao V2 VTI: 27.7 cm (V,D): 1.7 cm2 sev ratio: 0.48 indexed to BSA (cm^2/m^2): 0.79 MV E max joshua: 89.1 cm/sec PA V2 max: 66.9 cm/sec MV A max joshua: 56.7 cm/sec PA V2 mean: 40.9 cm/sec MV E/A: 1.6 PA mean P.78 mmHg Med Peak E' Joshua: 4.5 cm/sec PA pr(Accel): 43.0 mmHg E/E' med: 19.9 Lat Peak E' Joshua: 7.9 cm/sec E/E' lat: 11.2 E/e' average: 15.6 MV dec time: 0.18 sec SV(LVOT): 47.5 ml Reading Physician:05:56 PM
== END ==
PROVIDERS: Family Provider Internal Medicine; PCP Internal Medicine; Referring Provider Internal Medicine Cardiovascular Disease; Visit Provider Internal Medicine Cardiovascular Disease
DX: I08.1 Rheumatic disorders of both mitral and tricuspid valves (principal); I25.5 Ischemic cardiomyopathy
CPT/HCPCS: 93306

== ENCOUNTER → 2020-11-30 14:56 | Outpatient (CLI) | payer MEDICARE, OTHER, SELFPAY ==
[2018-11-18 20:34] VITALS: BMI 28.7
[2020-11-30 15:50] LABS: COVID19 -Nasal RAPID Negative (Negative)
== END ==
PROVIDERS: Family Provider Internal Medicine; PCP Internal Medicine; Referring Provider Internal Medicine; Visit Provider Internal Medicine
DX: Z20.822 Contact with and (suspected) exposure to COVID-19 (principal)
CPT/HCPCS: 87635; C9803

== ENCOUNTER → 2020-12-01 14:47 | Outpatient (CLI) | payer MEDICARE, OTHER, SELFPAY ==
[2018-11-18 20:34] VITALS: BMI 28.7
--- NOTE | 2020-12-06 09:33 | PM.PFT.1 ---
Pulmonary Function Test Referral & Results Date Patient Seen: 12/01/20 Requesting provider: Rick Duncan Results: The spirometry demonstrates an FVC of 2.06 L which is 49% of predicted. The FEV1 was measured at 1.13 L which is 38% of predicted. The FEV1/FVC ratio was 55 which is 77% of predicted. Following the administration of bronchodilator there was a 16% improvement in FEV1 and a 76% improvement in FEF 25-75%. Lung volumes show an SVC of 2.11 L which is 46% of predicted. The diffusing capacity was measured at 23.73 which is 70% of predicted. No hemoglobin value was provided, so no correction for potential anemia could be made, if appropriate. The maximum voluntary ventilation was not performed Interpretation: This study demonstrates moderately severe obstructive lung disease with evidence of benefit following bronchodilator particular in small airway flow based on improvement in FEF 25-75% as above There is also moderately severe restrictive lung disease based on reduction SVC There is also an element of disease of the capillary alveolar level demonstrated in by the reduction in diffusing capacity Clinical correlation suggested
== END ==
PROVIDERS: Family Provider Internal Medicine; PCP Internal Medicine; Referring Provider Internal Medicine Cardiovascular Disease; Visit Provider Internal Medicine Cardiovascular Disease
DX: R06.02 Shortness of breath (principal); J98.8 Other specified respiratory disorders; Z79.899 Other long term (current) drug therapy; Z87.891 Personal history of nicotine dependence
CPT/HCPCS: 94060; 94726; 94729

== ENCOUNTER → 2021-02-07 11:12 | Outpatient (CLI) | payer MEDICARE, OTHER, SELFPAY ==
[2018-11-18 20:34] VITALS: BMI 28.7
[2021-02-07 12:20] LABS: Alanine Aminotransferase 28 IU/L (<50); Albumin Globulin Ratio 1.3 (1.0-2.8); Alkaline Phosphatase 73 U/L (38-126); Aspartate Aminotransferase 29 IU/L (17-59); BUN Creatinine Ratio 13.8 (6-22); Bilirubin Total 0.6 mg/dL (0.2-1.3); Blood Urea Nitrogen 25 mg/dL (9-20); Calcium 9.5 mg/dL (8.4-10.2); Carbon Dioxide 31 mmol/L (22-32); Chloride 101 mmol/L (98-107); Cholesterol 128 mg/dL (140-199); Estimated Glomerular Filt Rate 36.1 mL/min (>60); Glucose 188 mg/dL (80-110); HDL Cholesterol 61 mg/dL (40-60); HEMOLYSIS < 15 (0-50); LDL Cholesterol Calculated 50 mg/dL (<100); Sodium 138 mmol/L (137-145); Triglycerides 83 mg/dL (35-150)
[2021-02-07 12:52] LABS: Thyroid Stimulating Hormone 1.53 uIU/mL (0.47-4.68)
== END ==
PROVIDERS: Family Provider Internal Medicine; PCP Internal Medicine; Referring Provider Internal Medicine Cardiovascular Disease; Visit Provider Internal Medicine Cardiovascular Disease
DX: Z79.899 Other long term (current) drug therapy (principal); E78.5 Hyperlipidemia, unspecified
CPT/HCPCS: 36415; 80053; 80061; 84443

== ENCOUNTER → 2021-03-20 12:28 | Outpatient (CLI) | payer MEDICARE, OTHER, SELFPAY ==
[2018-11-18 20:34] VITALS: BMI 28.7
--- NOTE | 2021-03-20 | DI.US.S_ITS ---
PROCEDURE: US ABDOMEN LIMITED INDICATIONS: DISTENTION TECHNIQUE: Real-time focused scanning was performed of the abdomen, with image documentation. COMPARISON: [facility], CT, CT CHEST WO CON, 04/21/2020, 14:27. FINDINGS: The liver demonstrates normal size and demonstrates overall normal liver echogenicity. Along the posterior aspect of the liver, there is a 7.3 x 4.1 x 5.4 cm area of increased echogenicity. No abnormal vascularity can be seen. The gallbladder has been removed. There is no biliary dilatation, the common bile duct measures 4 mm. No significant pancreatic abnormality is seen on these images. No pancreatic pseudocyst can be seen. No ascites is seen. Within the right abdominal wall, there is a lump seen that measures 4.9 x 2.1 x 5 cm. This nodule is irregular and solid, without abnormal vascularity. No change can be seen with Valsalva maneuver. IMPRESSION: A 5 cm abdominal wall solid mass is seen, which does not have the appearance of a hernia. It does not have a standard appearance for a lipoma. Please correlate with patient history and physical examination findings. The liver demonstrates a hyperechoic mass. Differential diagnosis includes a hemangioma, focal fatty infiltration, and less likely metastatic disease. For further evaluation of the above abnormalities, a dedicated CT of the abdomen and pelvis with IV contrast is now recommended. Negative for ascites. Dictated by: Drew Cifuentes M.D. on 03/20/2021 at 16:35 Approved by: Drew Cifuentes M.D. on 03/20/2021 at 16:39
== END ==
PROVIDERS: Family Provider Internal Medicine; PCP Internal Medicine; Referring Provider Internal Medicine; Visit Provider Internal Medicine
DX: R14.0 Abdominal distension (gaseous) (principal); R19.00 Intra-abdominal and pelvic swelling, mass and lump, unspecified site; R16.0 Hepatomegaly, not elsewhere classified
CPT/HCPCS: 76705

== ENCOUNTER 2021-03-22 10:51 | Emergency (ER) | payer MEDICARE, OTHER, SELFPAY ==
[2018-11-18 20:34] VITALS: BMI 28.7
[2021-03-22] VITALS (7 sets, daily range): BP systolic 112–136; BP diastolic 63–82; PULSE 80–102; RESP 21–24; TEMP 36.9; O2SAT 79–97; BMI 29.1
--- NOTE | 2021-03-22 11:01 | DI.RAD.S_ITS ---
PROCEDURE: XR CHEST 1V INDICATIONS: SHORT OF BREATH TECHNIQUE: One view of the chest was acquired. COMPARISON: [facility], CR, XR CHEST 2V, 09/22/2019, 10:12. FINDINGS: Surgical changes and devices: Left-sided pacer. Lungs and pleura: Lungs are clear. No pleural effusions or pneumothorax. Mediastinum: Mediastinal contours appear normal. Heart size is normal. Bones and chest wall: No suspicious bony lesions. Overlying soft tissues appear unremarkable. IMPRESSION: No acute process. Dictated by: Manuel Arreola M.D. on 03/22/2021 at 11:35 Approved by: Manuel Arreola M.D. on 03/22/2021 at 11:35
[2021-03-22 11:29] LABS: Add Manual Diff / Slide Review NO; Basophils Absolute Auto 100 /uL (0-100); Basophils Percent Auto 0.4 % (0-2); Eosinophils Absolute Auto 100 /uL (0-450); Eosinophils Percent Auto 0.6 % (2-4); Hematocrit 45.5 % (41-53); Hemoglobin 14.5 g/dL (13.5-17.5); Lymphocytes Absolute Auto 2200 /uL (1100-4500); Lymphocytes Percent Auto 16.7 % (25-40); Mean Corpuscular HGB Conc 31.8 % (30-36); Mean Corpuscular Hemoglobin 31.2 PG (26-34); Monocytes Absolute Auto 1200 /uL (0-900); Monocytes Percent Auto 9.5 % (3-14); Neutrophils Absolute Auto 9400 /uL (1500-7000); Neutrophils Percent Auto 72.8 % (50-75); Platelet Count 195 X10^3/uL (150-400); Red Blood Cell Count 4.64 X10^6/uL (4.5-5.9); Red Cell Distribution Width 14.3 % (11.6-14.8)
[2021-03-22 11:36] LABS: INR 1.2 (0.9-1.3); Prothrombin Time 13.5 SECONDS (10.1-12.7)
[2021-03-22 11:38] LABS: PTT Partial Thromboplastin Tim 34 SECONDS (26.4-36.2)
[2021-03-22 11:40] LABS: Alanine Aminotransferase 29 IU/L (<50); Albumin 3.9 g/dL (3.5-5.0); Albumin Globulin Ratio 1.3 (1.0-2.8); Alkaline Phosphatase 74 U/L (38-126); Aspartate Aminotransferase 30 IU/L (17-59); BUN Creatinine Ratio 18.1 (6-22); Bilirubin Total 0.8 mg/dL (0.2-1.3); Blood Urea Nitrogen 38 mg/dL (9-20); Calcium 9.2 mg/dL (8.4-10.2); Carbon Dioxide 25 mmol/L (22-32); Chloride 104 mmol/L (98-107); Creatine Kinase 47 U/L (55-170); Estimated Glomerular Filt Rate 30.4 mL/min (>60); Globulin 2.9 g/dL (1.7-4.1); Glucose 285 mg/dL (80-110); HEMOLYSIS < 15 (0-50); Potassium 5.1 mmol/L (3.4-5.1); Sodium 138 mmol/L (137-145); Total Protein 6.8 g/dL (6.3-8.2)
[2021-03-22 11:52] LABS: NT-proBNP (BNP-Adult 18+) 4000 pg/mL (<450); Troponin I < 0.012 ng/mL (0.01-0.034)
--- NOTE | 2021-03-22 12:04 | ED.SOB ---
HPI - SOB/Dyspnea General Chief Complaint: Shortness of Breath/Dyspnea Stated Complaint: Difficulty breathing Time Seen by Provider: 03/22/21 10:52 Source: patient Mode of arrival: EMS Limitations: no limitations History of Present Illness HPI Narrative: Patient is a 1-year-old male who has a history of diabetes, atrial fibrillation on apixaban, congestive heart failure presenting with increasing shortness of breath. He said it started last evening, he was unable to breathe last night he needed to sit up. However he did not get much sleep. He feels like he is having increased abdominal distention. 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 Conveniently he had an ultrasound 2 days ago which showed no pancreatic abnormality. He has no lower leg swelling which he says he never does. He is on furosemide 60 mg twice a day he says he has not missed a dose. He is having shortness of breath with minimal activity. He denies any chest pain. No fever or cough. He denies any palpitations. MD Complaint: shortness of breath Related Data Home Medications Medication Instructions Recorded Confirmed lisinopril 40 mg PO QAM #0 01/20/08 11/18/18 coenzyme Q10 [CoQ-10] 100 mg PO DAILY #0 07/15/12 11/18/18 rosuvastatin [Crestor] 10 mg PO QPM #0 07/15/12 11/18/18 aspirin 81 mg OR QPM #0 12/11/17 11/18/18 apixaban 2.5 mg PO BID 11/18/18 11/18/18 docusate sodium 100 mg PO DAILY 11/18/18 11/18/18 [id number] serr 1 tab PO BID 11/18/18 11/18/18 [Osteo Bi-Flex (5-Loxin)] insulin aspart U-100 40 - 50 units SUBCUT BID 11/18/18 11/18/18 insulin glargine 25 units SUBCUT BID 11/18/18 11/18/18 lisinopril 20 mg PO QPM 11/18/18 11/18/18 metoprolol succinate 100 mg PO BID 11/18/18 11/18/18 Previous Rx's Medication Instructions Recorded furosemide [Lasix] 60 mg PO BID #10 tab 11/15/18 amiodarone in dextrose 5 % See Rx Instructions .ROUTE 11/19/18 .COMPLEX #1200 ml Allergies Allergy/AdvReac Type Severity Reaction Status Date / Time amoxicillin Allergy Mild DIARRHEA Verified 11/18/18 14:25 naproxen Allergy Mild DIARRHEA Verified 11/18/18 14:25 Penicillins [PENICILLINS] Allergy Unknown Verified 11/18/18 14:25 Review of Systems Review of Systems ROS Unobtainable: All systems reviewed & are unremarkable except as noted in HPI and below Constitutional Constitutional: Denies chills, Denies fever(s), Denies lethargy and Denies weakness Eyes Eyes: Denies change in vision, Denies eye discharge, Denies irritation and Denies loss of vision Cardiovascular Cardiovascular: Reports as per HPI, Denies irregular heart rhythm, Denies palpitations, Reports dyspnea on exertion and Reports orthopnea Respiratory Respiratory: Reports as per HPI, Denies cough, Denies hemoptysis and Reports dyspnea on exertion Gastrointestinal Gastrointestinal: Denies abdominal pain, Denies change in bowel habits, Denies diarrhea, Denies nausea and Denies vomiting Integumentary/Breasts Skin/Breast: Denies pruritus, Denies erythema, Denies rash and Denies wounds Neurologic Neurologic: Denies loss of vision and Denies weakness Endocrine Endocrine: Denies palpitations Patient History Medical History (Updated 03/22/21 @ 14:46 by Amparo Milan DO) Atrial fibrillation Hyperlipidemia Hypertension Ischemic cardiomyopathy Myocardial infarction Obesity Obstructive sleep apnea of adult Primary insomnia Snoring Type 2 diabetes mellitus Surgical History History of cholecystectomy History of ERCP History of hernia repair History of left knee replacement History of partial knee replacement History of resection of 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 Mother Leukemia Social History household members: spouse Smoking Status: Former smoker alcohol intake: former Smoking Status: Former smoker alcohol intake frequency: 0-2 drinks per day Substance Use Type: does not use Exam Initial Vital Signs Initial Vital Signs: Vital Signs Temperature 98.4 F 03/22/21 10:50 Pulse Rate 102 H 03/22/21 10:50 Respiratory Rate 24 03/22/21 10:50 Blood Pressure 114/82 03/22/21 10:50 Pulse Oximetry 97 03/22/21 10:50 GENERAL: Alert pleasant 80-year-old male and in no acute distress. HEENT: Head atraumatic,EOMI, pupils reactive, face symmetric, moist mucous membranes CARDIOVASCULAR: Regular rate and rhythm without murmurs, rubs or gallops. RESPIRATORY: Breath sounds equal bilaterally, no wheezes rales or rhonchi. ABDOMEN: Soft, nontender. Normoactive bowel sounds all 4 quadrants. No guarding or rebound. Scars noted on abdomen, no significant swelling no pulsatile mass EXTREMITIES: Normal range of motion, no clubbing or edema. Neurovascularly intact NEUROLOGICAL: Alert and oriented x4.Normal gait and speech. Cranial nerves II through XII grossly intact. SKIN: Warm, dry, no laceration, no petechiae, no rashes or lesions. Course Orders Ordered: ED Orders 03/22/21 10:25 Complete Blood Count AUTO DIFF Stat Comprehensive Metabolic Panel Stat NT-proBNP (BNP-Adult 18+) Stat Partial Thromboplastin Time Stat Procalcitonin Stat Prothrombin Time INR Stat Troponin & CK Cardiac Panel Stat 03/22/21 11:01 Consult to Respiratory Therapy Evaluate & Treat XR chest 1V Stat EKG-12 Lead Stat Discontinued Medications Furosemide (Furosemide 100 Mg/10 Ml Vial) 60 mg IV NOW ONE Stop: 03/22/21 11:57 Last Admin: 03/22/21 12:18 Dose: 60 mg Documented by: [email or web address] Vital Signs Vital signs: Vital Signs - 8 hr 03/22/21 12:11 03/22/21 12:30 03/22/21 13:00 Pulse Rate 80 93 H 80 Respiratory Rate 22 24 22 Blood Pressure 136/75 112/63 Pulse Oximetry 95 95 94 03/22/21 13:30 03/22/21 14:56 03/22/21 14:57 Pulse Rate 80 82 Respiratory Rate 21 Blood Pressure 113/71 118/70 Pulse Oximetry 95 79 L 94 MDM - SOB/Dyspnea Lab Data Attestation: I reviewed the patient's lab results. Result diagrams: 03/22/21 10:25 03/22/21 10:25 Labs: Lab Results 03/22/21 03/22/21 03/22/21 Range/Units 10:25 10:25 10:25 WBC 13.0 H (4.5-11.0) X10^3/uL RBC 4.64 (4.5-5.9) X10^6/uL Hgb 14.5 (13.5-17.5) g/dL Hct 45.5 (41-53) % MCV 98.0 (80-100) fL MCH 31.2 (26-34) PG MCHC 31.8 (30-36) % RDW 14.3 (11.6-14.8) % Plt Count 195 (150-400) X10^3/uL Neut % (Auto) 72.8 (50-75) % Lymph % (Auto) 16.7 L (25-40) % [place] % (Auto) 9.5 (3-14) % Eos % (Auto) 0.6 L (2-4) % Baso % (Auto) 0.4 (0-2) % Neut # (Auto) 9400 H (7639-3004) /uL Lymph # (Auto) 2200 (3106-7088) /uL [place] # (Auto) 1200 H (0-900) /uL Eos # (Auto) 100 (0-450) /uL Baso # (Auto) 100 (0-100) /uL PT 13.5 H (10.1-12.7) SECONDS INR 1.2 (0.9-1.3) APTT 34 D (26.4-36.2) SECONDS Sodium (137-145) mmol/L Potassium (3.4-5.1) mmol/L Chloride (98-107) mmol/L Carbon Dioxide (22-32) mmol/L BUN (9-20) mg/dL Creatinine (0.66-1.25) mg/dL Estimated GFR (>60) mL/min BUN/Creatinine Ratio (6-22) Glucose (80-110) mg/dL Calcium (8.4-10.2) mg/dL Total Bilirubin (0.2-1.3) mg/dL AST (17-59) IU/L ALT (<50) IU/L Alkaline Phosphatase (38-126) U/L Total Creatine Kinase (55-170) U/L CK-MB (CK-2) CK-MB (CK-2) Rel Index Troponin I (0.01-0.034) ng/mL NT-Pro-B Natriuret Pep Cancelled Total Protein (6.3-8.2) g/dL Albumin (3.5-5.0) g/dL Globulin (1.7-4.1) g/dL Albumin/Globulin Ratio (1.0-2.8) Procalcitonin Cancelled 03/22/21 Range/Units 10:25 WBC (4.5-11.0) X10^3/uL RBC (4.5-5.9) X10^6/uL Hgb (13.5-17.5) g/dL Hct (41-53) % MCV (80-100) fL MCH (26-34) PG MCHC (30-36) % RDW (11.6-14.8) % Plt Count (150-400) X10^3/uL Neut % (Auto) (50-75) % Lymph % (Auto) (25-40) % [place] % (Auto) (3-14) % Eos % (Auto) (2-4) % Baso % (Auto) (0-2) % Neut # (Auto) (0274-1097) /uL Lymph # (Auto) (0083-0789) /uL [place] # (Auto) (0-900) /uL Eos # (Auto) (0-450) /uL Baso # (Auto) (0-100) /uL PT (10.1-12.7) SECONDS INR (0.9-1.3) APTT (26.4-36.2) SECONDS Sodium 138 (137-145) mmol/L Potassium 5.1 (3.4-5.1) mmol/L Chloride 104 (98-107) mmol/L Carbon Dioxide 25 (22-32) mmol/L BUN 38 H (9-20) mg/dL Creatinine 2.10 H (0.66-1.25) mg/dL Estimated GFR 30.4 L (>60) mL/min BUN/Creatinine Ratio 18.1 (6-22) Glucose 285 H (80-110) mg/dL Calcium 9.2 (8.4-10.2) mg/dL Total Bilirubin 0.8 (0.2-1.3) mg/dL AST 30 (17-59) IU/L ALT 29 (<50) IU/L Alkaline Phosphatase 74 (38-126) U/L Total Creatine Kinase 47 L (55-170) U/L CK-MB (CK-2) TNP CK-MB (CK-2) Rel Index TNP Troponin I < 0.012 (0.01-0.034) ng/mL NT-Pro-B Natriuret Pep 4000 H Total Protein 6.8 (6.3-8.2) g/dL Albumin 3.9 (3.5-5.0) g/dL Globulin 2.9 (1.7-4.1) g/dL Albumin/Globulin Ratio 1.3 (1.0-2.8) Procalcitonin 0.10 Urine Dip Bedside Urine Glucose Negative Bedside Urine Bilirubin - Negative Bedside Urine Ketone - Negative Urine Specific [place] 1.030 Bedside Urine Occult Blood - Negative Bedside Urine pH 6.0 Bedside Urine Protein +/- 15 Bedside Urine Urobilinogen - Negative Bedside Urine Nitrite - Negative Bedside Urine Leukocytes - Negative Esterase Imaging Data Chest x-ray: Radiologist's Impression: PROCEDURE: XR CHEST 1V INDICATIONS: SHORT OF BREATH TECHNIQUE: One view of the chest was acquired. COMPARISON: [facility], , XR CHEST 2V, 09/22/2019, 10:12. FINDINGS: Surgical changes and devices: Left-sided pacer. Lungs and pleura: Lungs are clear. No pleural effusions or pneumothorax. Mediastinum: Mediastinal contours appear normal. Heart size is normal. Bones and chest wall: No suspicious bony lesions. Overlying soft tissues appear unremarkable. IMPRESSION: No acute process. Dictated by: Manuel Arreola M.D. on 03/22/2021 at 11:35 ECG Data Attestation: I personally reviewed and interpreted this ECG as follows: Prior ECG tracings: available for review Interpretation: Atrial fibrillation, pacemaker noted PVCs noted no ST changes MDM Narrative Medical decision making narrative: Patient has no abdominal pain worried about previous pancreatic cyst ultrasound from 2 days ago does not show any pancreatic abnormality he does have some subcutaneous masses which are noted on exam nontender he states they have been there for a number of years he actually has them on both sides. At this time I recommend outpatient CT no indication today. He seems to have exacerbation of CHF with BNP of 4000. He is in no acute respiratory distress not requiring any oxygen and chest x-ray is actually clear. He is given extra dose of Lasix 60 mg IV. 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 At this time I recommend increasing his Lasix to twice a day for the next few days and then change to get back to once a day. He urinated with 60 mg IV he had ambulation trial with his O2 stayed above 90% he overall feels better he does not appear to be in any acute distress. He is noted to have mild elevation in creatinine of 2.1 previous was 1.8. Discharge Plan Departure Patient Disposition: Home Clinical Impression: Acute exacerbation of congestive heart failure Qualifiers: Heart failure type: unspecified Qualified Code(s): I50.9 - Heart failure, unspecified Instructions: DI for Heart Failure Activity Restrictions/Additional Instructions: *You have been diagnosed with CHF exacerbation *What to do: At this time we will increase your water pill to 3 times a day for the next few days. *Continue to take medications as directed Furosemide 60 mg 2 times a day for the next 3 days then return to 60 mg once a day *Follow up with your primary care provider in 2-3 days *Return to ER if you should have increasing shortness of breath, chest pain, palpitations fever or any new, worsening or concerning symptoms Prescriptions: No Action lisinopril 40 mg Tablet 40 mg PO QAM Qty: 0 RF: 0 rosuvastatin [Crestor] 10 MG tablet 10 mg PO QPM Qty: 0 RF: 0 coenzyme Q10 [CoQ-10] 100 mg Capsule 100 mg PO DAILY Qty: 0 RF: 0 aspirin 81 MG tablet,delayed release (DR/EC) 81 mg OR QPM Qty: 0 RF: 0 furosemide [Lasix] 40 mg tablet 60 mg PO BID Qty: 10 RF: 0 insulin glargine 100 unit/mL solution 25 units subcut BID RF: 0 metoprolol succinate 100 mg tablet extended release 24 hr 100 mg PO BID RF: 0 insulin aspart U-100 100 unit/mL solution 40 - 50 units subcut BID RF: 0 docusate sodium 100 mg Capsule 100 mg PO DAILY RF: 0 lisinopril 40 mg Tablet 20 mg PO QPM RF: 0 [id number] serr [Osteo Bi-Flex (5-Loxin)] 1,500-400-100 mg-unit-mg Tablet 1 tab PO BID RF: 0 apixaban 2.5 mg tablet 2.5 mg PO BID RF: 0 amiodarone in dextrose 5 % 150 mg/100 mL (1.5 mg/mL) solution See Rx Instructions .ROUTE .COMPLEX Qty: 1200 RF: 0 Referrals: Garfield Dove MD [Primary Care Provider] -
[2021-03-22] MEDS: FUROSEMIDE 100 MG/10 ML VIAL 60 MG IV (12:18)
== END 2021-03-22 15:05 | disposition home or self-care (01) ==
PROVIDERS: Emergency Provider Emergency Medicine; Family Provider Internal Medicine; PCP Internal Medicine
DX: I50.9 Heart failure, unspecified (principal); R06.02 Shortness of breath
CPT/HCPCS: 36415; 71045; 80053; 81003; 82550; 83880; 84145; 84484; 85025; 85610; 85730; 93005; 93010; 96374; 99284; J1940

== ENCOUNTER 2021-03-28 12:16 | Emergency (ER) | payer MEDICARE, OTHER, SELFPAY ==
[2018-11-18 20:34] VITALS: BMI 28.7
[2021-03-28] VITALS (11 sets, daily range): BP systolic 101–123; BP diastolic 56–83; PULSE 80–83; RESP 15–24; TEMP 36.3; O2SAT 93–97; BMI 26.4
[2021-03-28 13:06] LABS: Add Manual Diff / Slide Review NO; Basophils Absolute Auto 100 /uL (0-100); Basophils Percent Auto 0.7 % (0-2); Eosinophils Absolute Auto 100 /uL (0-450); Eosinophils Percent Auto 0.6 % (2-4); Hematocrit 46.9 % (41-53); Lymphocytes Absolute Auto 1300 /uL (1100-4500); Lymphocytes Percent Auto 13.6 % (25-40); Mean Corpuscular Hemoglobin 31.4 PG (26-34); Mean Corpuscular Volume 98.2 fL (80-100); Monocytes Absolute Auto 1100 /uL (0-900); Monocytes Percent Auto 11.4 % (3-14); Neutrophils Absolute Auto 7100 /uL (1500-7000); Neutrophils Percent Auto 73.7 % (50-75); Platelet Count 212 X10^3/uL (150-400); Red Blood Cell Count 4.78 X10^6/uL (4.5-5.9); Red Cell Distribution Width 13.9 % (11.6-14.8); White Blood Cell Count 9.6 X10^3/uL (4.5-11.0)
[2021-03-28 13:10] LABS: Alanine Aminotransferase 32 IU/L (<50); Albumin 4.1 g/dL (3.5-5.0); Albumin Globulin Ratio 1.4 (1.0-2.8); Alkaline Phosphatase 77 U/L (38-126); Aspartate Aminotransferase 42 IU/L (17-59); BUN Creatinine Ratio 21.9 (6-22); Bilirubin Total 0.7 mg/dL (0.2-1.3); Blood Urea Nitrogen 77 mg/dL (9-20); Calcium 9.6 mg/dL (8.4-10.2); Carbon Dioxide 27 mmol/L (22-32); Chloride 96 mmol/L (98-107); Estimated Glomerular Filt Rate 16.8 mL/min (>60); Glucose 429 mg/dL (80-110); Lipase 75 U/L (23-300); Sodium 134 mmol/L (137-145); Total Protein 7.1 g/dL (6.3-8.2)
[2021-03-28 13:25] LABS: HEMOLYSIS 55 (0-50)
--- NOTE | 2021-03-28 14:10 | ED_ITS ---
HPI - Recheck/Abnormal Lab/Rx General Chief Complaint: Recheck/Abnormal Lab/Rx Stated Complaint: Kidney issues, sent by doctor Time Seen by Provider: 03/28/21 14:00 Source: patient Mode of arrival: Ambulatory Limitations: no limitations History of Present Illness HPI narrative: This is a 80-year-old male comes emergency department for worsening renal function. Patient states he had outpatient labs drawn today and was noted his GFR/creatinine had worsened. Patient states that he had been having significant shortness of breath the increased his Lasix from 20 mg daily to 180 mg daily for 3 days and then decreased his dose to 120 mg daily which he has continued. Patient states his dyspnea has significantly improved. He no longer feels fluid overloaded. And that he feels significantly better. He denies any chest pain or pressure. He never had any swelling in his extremities. He has had any fevers, no vomiting. No nausea or vomiting. He has not noted any decrease in urine output. He has a condom catheter regularly. Patient denies any other new medication changes. He does not follow with plant tender regularly. Patient does have a significant cardiac history with proximal atrial fibrillation prior AICD placed and has had an ablation in the past. Two years ago had a cardioversion after his pacemaker ?ran wild?. Patient states he has had 2 cardiac stents paced in the past. He is on Eliquis daily. 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 He is an insulin-dependent diabetic and states uses 40-50 in his insulin b.i.d.. He states his only allergies to amoxicillin. Denies tobacco, alcohol or recreational drugs. He is accompanied by his . Dr. Dove is his primary care and Dr. Duncan is your cardiology. Related Data Home Medications Medication Instructions Recorded Confirmed lisinopril 40 mg PO QAM #0 01/20/08 11/18/18 coenzyme Q10 [CoQ-10] 100 mg PO DAILY #0 07/15/12 11/18/18 rosuvastatin [Crestor] 10 mg PO QPM #0 07/15/12 11/18/18 aspirin 81 mg OR QPM #0 12/11/17 11/18/18 apixaban 2.5 mg PO BID 11/18/18 11/18/18 docusate sodium 100 mg PO DAILY 11/18/18 11/18/18 [id number] serr 1 tab PO BID 11/18/18 11/18/18 [Osteo Bi-Flex (5-Loxin)] insulin aspart U-100 40 - 50 units SUBCUT BID 11/18/18 11/18/18 insulin glargine 25 units SUBCUT BID 11/18/18 11/18/18 lisinopril 20 mg PO QPM 11/18/18 11/18/18 metoprolol succinate 100 mg PO BID 11/18/18 11/18/18 Previous Rx's Medication Instructions Recorded furosemide [Lasix] 60 mg PO BID #10 tab 11/15/18 amiodarone in dextrose 5 % See Rx Instructions .ROUTE 11/19/18 .COMPLEX #1200 ml Allergies Allergy/AdvReac Type Severity Reaction Status Date / Time amoxicillin Allergy Mild DIARRHEA Verified 03/28/21 12:24 naproxen Allergy Mild DIARRHEA Verified 03/28/21 12:24 Penicillins [PENICILLINS] Allergy Unknown Verified 03/28/21 12:24 Review of Systems Review of Systems ROS Unobtainable: All systems reviewed & are unremarkable except as noted in HPI and below Patient History Medical History (Updated 03/28/21 @ 17:06 by Milana Lucio DO) Atrial fibrillation Hyperlipidemia Hypertension Ischemic cardiomyopathy Myocardial infarction Obesity Obstructive sleep apnea of adult Primary insomnia Snoring Type 2 diabetes mellitus Surgical History History of cholecystectomy History of ERCP History of hernia repair History of left knee replacement History of partial knee replacement History of resection of 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 Mother Leukemia Social History household members: spouse Smoking Status: Former smoker alcohol intake: former Smoking Status: Former smoker alcohol intake frequency: holidays/special occasions only Substance Use Type: does not use Exam Narrative Exam Narrative: GENERAL: Alert and oriented x three, elderly male in mild distress. HEENT: Head normocephalic, atraumatic, EOMI, pupils reactive, face symmetric, moist mucous membranes NECK: Supple, full range of motion CARDIOVASCULAR: Regular rate and rhythm without murmurs, rubs or gallops. RESPIRATORY: Breath sounds equal bilaterally, no wheezes rales or rhonchi. ABDOMEN: Soft, nontender. Normoactive bowel sounds all 4 quadrants. No guarding or rebound, rigidity, no mass, patient does have a large hernia which is soft it is not fully reducible but some of this may be due to size. : No CVA tenderness EXTREMITIES: Normal range of motion, no edema appreciated bilateral lower extremities. Neurovascularly intact NEUROLOGICAL: Cranial nerves II through XII grossly intact. Moving all extremities SKIN: Warm, dry, no petechiae, no rashes or lesions. Initial Vital Signs Initial Vital Signs: Vital Signs Temperature 97.4 F L 03/28/21 12:19 Pulse Rate 83 03/28/21 12:19 Respiratory Rate 16 03/28/21 12:19 Blood Pressure 109/56 L 03/28/21 12:19 Pulse Oximetry 95 03/28/21 12:19 Course Orders Ordered: ED Orders 03/28/21 12:40 Complete Blood Count AUTO DIFF Stat Comprehensive Metabolic Panel Stat Lipase Stat 03/28/21 12:57 EKG-12 Lead Stat 03/28/21 14:20 XR chest 1V Stat 03/28/21 14:21 CT kidney ureter bladder (KUB) Stat 03/28/21 14:44 COVID19 - ADMIT (COAT PRESSER swab/PCR) Stat 03/28/21 17:17 Urinalysis and Microscopic Stat Discontinued Medications Sodium Chloride (Normal Saline 0.9%) 1,000 mls @ 100 mls/hr IV CONT STEPHANI Last Infusion: 03/28/21 17:44 Dose: 0 mls/hr Documented by: Admin: 03/28/21 15:42 Dose: 100 mls/hr Documented by: MIKIE Insulin Human Regular (Insulin Regular 100 Unit/Ml 3 Ml Vial) 20 unit SUBCUT NOW ONE Stop: 03/28/21 15:49 Last Admin: 03/28/21 15:54 Dose: 20 unit Documented by: MIKIE Cosigned by: FLAVIA Vital Signs Vital signs: Vital Signs - 8 hr 03/28/21 12:19 03/28/21 13:13 03/28/21 13:30 Temperature 97.4 F L Pulse Rate 83 80 80 Respiratory Rate 16 19 Blood Pressure 109/56 L Pulse Oximetry 95 94 93 03/28/21 14:00 03/28/21 14:36 03/28/21 15:00 Temperature Pulse Rate 80 80 80 Respiratory Rate 18 22 23 Blood Pressure 112/72 110/83 Pulse Oximetry 93 97 96 03/28/21 15:30 03/28/21 16:00 03/28/21 16:30 Temperature Pulse Rate 80 80 80 Respiratory Rate 18 15 24 Blood Pressure 118/75 101/68 123/72 Pulse Oximetry 97 94 97 03/28/21 17:00 03/28/21 17:30 Temperature Pulse Rate 80 80 Respiratory Rate 23 Blood Pressure 107/57 L 102/58 L Pulse Oximetry 95 94 MDM - Recheck/Abnormal Lab/Rx Lab Data Attestation: I reviewed the patient's lab results. Result diagrams: 03/28/21 12:40 03/28/21 12:40 Labs: Lab Results 03/28/21 03/28/21 03/28/21 Range/Units 12:40 12:40 14:44 WBC 9.6 (4.5-11.0) X10^3/uL RBC 4.78 (4.5-5.9) X10^6/uL Hgb 15.0 (13.5-17.5) g/dL Hct 46.9 (41-53) % MCV 98.2 (80-100) fL MCH 31.4 (26-34) PG MCHC 32.0 (30-36) % RDW 13.9 (11.6-14.8) % Plt Count 212 (150-400) X10^3/uL Neut % (Auto) 73.7 (50-75) % Lymph % (Auto) 13.6 L (25-40) % [place] % (Auto) 11.4 (3-14) % Eos % (Auto) 0.6 L (2-4) % Baso % (Auto) 0.7 (0-2) % Neut # (Auto) 7100 H (5520-7483) /uL Lymph # (Auto) 1300 (5479-1031) /uL [place] # (Auto) 1100 H (0-900) /uL Eos # (Auto) 100 (0-450) /uL Baso # (Auto) 100 (0-100) /uL Sodium 134 L (137-145) mmol/L Potassium 5.0 (3.4-5.1) mmol/L Chloride 96 L (98-107) mmol/L Carbon Dioxide 27 (22-32) mmol/L BUN 77 H (9-20) mg/dL Creatinine 3.51 H (0.66-1.25) mg/dL Estimated GFR 16.8 L (>60) mL/min BUN/Creatinine Ratio 21.9 (6-22) Glucose 429 H D (80-110) mg/dL Calcium 9.6 (8.4-10.2) mg/dL Total Bilirubin 0.7 (0.2-1.3) mg/dL AST 42 (17-59) IU/L ALT 32 (<50) IU/L Alkaline Phosphatase 77 (38-126) U/L Total Protein 7.1 (6.3-8.2) g/dL Albumin 4.1 (3.5-5.0) g/dL Globulin 3.0 (1.7-4.1) g/dL Albumin/Globulin Ratio 1.4 (1.0-2.8) Lipase 75 (23-300) U/L Urine Color Urine Appearance Urine pH (4.5-8.0) Ur Specific [place] (1.000-1.035) Urine Protein (Negative) Urine Glucose (UA) (Negative) g/dL Urine Ketones (NEGATIVE) Urine Occult Blood (Negative) Urine Nitrate (Negative) Urine Bilirubin (NEGATIVE) Urine Urobilinogen (0.2) E.U./dL Ur Leukocyte Esterase (NEGATIVE) Urine RBC (0-5/HPF) Urine WBC (0-5/HPF) Urine Bacteria (None) Ur Culture Indicated? SARS-CoV-2 (PCR) Negative (Negative) 03/28/21 Range/Units 17:17 WBC (4.5-11.0) X10^3/uL RBC (4.5-5.9) X10^6/uL Hgb (13.5-17.5) g/dL Hct (41-53) % MCV (80-100) fL MCH (26-34) PG MCHC (30-36) % RDW (11.6-14.8) % Plt Count (150-400) X10^3/uL Neut % (Auto) (50-75) % Lymph % (Auto) (25-40) % [place] % (Auto) (3-14) % Eos % (Auto) (2-4) % Baso % (Auto) (0-2) % Neut # (Auto) (4805-4260) /uL Lymph # (Auto) (3561-3781) /uL [place] # (Auto) (0-900) /uL Eos # (Auto) (0-450) /uL Baso # (Auto) (0-100) /uL Sodium (137-145) mmol/L Potassium (3.4-5.1) mmol/L Chloride (98-107) mmol/L Carbon Dioxide (22-32) mmol/L BUN (9-20) mg/dL Creatinine (0.66-1.25) mg/dL Estimated GFR (>60) mL/min BUN/Creatinine Ratio (6-22) Glucose (80-110) mg/dL Calcium (8.4-10.2) mg/dL Total Bilirubin (0.2-1.3) mg/dL AST (17-59) IU/L ALT (<50) IU/L Alkaline Phosphatase (38-126) U/L Total Protein (6.3-8.2) g/dL Albumin (3.5-5.0) g/dL Globulin (1.7-4.1) g/dL Albumin/Globulin Ratio (1.0-2.8) Lipase (23-300) U/L Urine Color Yellow Urine Appearance Clear Urine pH 6.0 (4.5-8.0) Ur Specific [place] 1.020 (1.000-1.035) Urine Protein Negative (Negative) Urine Glucose (UA) 2+ H (Negative) g/dL Urine Ketones Negative (NEGATIVE) Urine Occult Blood Negative (Negative) Urine Nitrate Negative (Negative) Urine Bilirubin Negative (NEGATIVE) Urine Urobilinogen 0.2 (0.2) E.U./dL Ur Leukocyte Esterase Negative (NEGATIVE) Urine RBC None seen (0-5/HPF) Urine WBC None seen (0-5/HPF) Urine Bacteria None seen (None) Ur Culture Indicated? Cult not indicated SARS-CoV-2 (PCR) (Negative) Point of Care Testing Glucose POC 334 Imaging Data Chest x-ray: Radiologist's Impression: [address] [id number] ReportSigned Patient: Raul Ray#: [id number]: 8Acct:[id number]/Sex: 80 / MDate of Service: 03/28/21Loc: EDAccession Number: [id number] Procedure: XR chest 1V Ordering Provider: Milana Lucio D.O. PROCEDURE: XR CHEST 1V INDICATIONS: acute kidney failure TECHNIQUE: One view of the chest was acquired. COMPARISON: [facility], CR, XR CHEST 1V, 03/22/2021, 11:24. FINDINGS: Surgical changes and devices: Left-sided dual-chamber pacemaker/defibrillator noted. Lungs and pleura: Lungs are clear. No pleural effusions or pneumothorax. Platelike atelectasis or scarring noted left lung base. Remainder the lungs and pleural space are clear. Mediastinum: Heart size is enlarged. Atherosclerotic vascular calcification noted in the aortic arch. Bones and chest wall: No suspicious bony lesions. Overlying soft tissues appear unremarkable. IMPRESSION: No acute cardiopulmonary findings Cardiomegaly and dual chamber pacemaker without vascular congestion. Dictated by: Emory Ford M.D. on 03/28/2021 at 14:00 Approved by: Emory Ford M.D. on 03/28/2021 at 14:02 CT scan - abdomen/pelvis: Radiologist's Impression: [address] Scan ReportSigned Patient: Raul Ray#: [id number]: 8Acct:[id number]/Sex: 80 / MDate of Service: 03/28/21Loc: EDAccession Number: [id number] Procedure: CT kidney ureter bladder (KUB) Ordering Provider: Milana Lucio D.O. PROCEDURE: CT KIDNEY URETER BLADDER (KUB) INDICATIONS: acute renal failure TECHNIQUE: Noncontrast 5 mm thick sections acquired from the diaphragms to the symphysis. 5 mm thick coronal and sagittal reformats were then performed. For radiation dose reduction, the following was used: automated exposure control, adjustment of mA and/or kV according to patient size. COMPARISON: [facility], US, US ABDOMEN LIMITED, 03/20/2021, 13:03. [facility], CT, CT CHEST WO CON, 04/21/2020, 14:27. FINDINGS: Lower thorax: Lung bases are clear. Heart size is enlarged, and there is a pacemaker/defibrillator present. Dense coronary artery vascular calcification present as well. Liver: Normal in size and attenuation. No contour deformity present. Biliary system: Cholecystectomy. No intra or extrahepatic bile duct dilatation. Pancreas: As below. Pancreatic head unremarkable. 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 Short perig astric suture line noted. Adrenals: Normal morphology and density. Reproductive system: Unremarkable as visualized. Urinary system: Mild bilateral renal atrophy and moderate perinephric stranding noted. No hydronephrosis or calculi present. Suggestion of anterior right renal cortical cyst measures 1.7 cm. Additional hyperdense exophytic left renal cortical nodules are also noted each measuring less than 1.2 cm. Gastrointestinal system: The bowel appears unremarkable with no evidence of bowel obstruction or inflammation. The stomach appears unremarkable. Sigmoid and descending colon diverticulosis without evidence of acute diverticulitis. Appendix: Probable appendectomy. No findings to suggest acute appendicitis. Peritoneal spaces: No mesenteric or retroperitoneal adenopathy. No free air. No free fluid. Vasculature: Dense aortic atherosclerotic calcification present. There is moderate right common iliac stenosis and probable moderate bilateral on renal artery stenosis. Musculoskeletal: Periumbilical hernia contains several loops of small bowel without obstruction. Additionally, there is subcutaneous induration bilaterally in noted just above the level of the umbilicus which is most consistent with a sequelae of multiple subcutaneous injections. Multilevel degenerative changes noted involving the lumbar spine present. Bilateral inguinal hernias contain fat without bowel involvement. IMPRESSION: 1. Mild bilateral renal atrophy and bilateral probable at least moderate calcific renal artery stenosis. Consider follow-up CTA if possible or ultrasound vascular evaluation. 2. Bilateral renal cysts some of which are hyperdense can also be further evaluated by ultrasound or MRI. 3. 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 Correlate with surgical history. 4. Periumbilical subcutaneous edema/induration consistent with sequelae of chronic subcutaneous injections. 5. Small periumbilical hernia containing small bowel loops without obstruction or incarceration. Dictated by: Emory Ford M.D. on 03/28/2021 at 13:37 Approved by: Emory Ford M.D. on 03/28/2021 at 14:00 ECG Data Attestation: I personally reviewed and interpreted this ECG as follows: Interpretation: Ventricular paced rhythm. Rate 80, QRS 8188 QTC of 567. MDM Narrative Medical decision making narrative: This is an 80-year-old gentleman who was sent for acute on chronic renal failure. Patient had a prior 1.8 range. He bumped up to 2.1 on January 20 and is 3.5 today on the . His BUN is 77 in was at 38 before and baseline was in the mid 20s. Patient does not have significant electrolyte changes. His is hyperglycemic today. Patient will glucose was 300 on recheck and he was given 20 units which is actually half of his usual 40-50. Patient did have a significant increase in his Lasix from 20 mg to 180 mg for 3 days in the bump down to 120 mg this is likely the cause for his worsening renal dysfunction. Patient does have hyperglycemia without anion gap, normal CO and urine negative for ketones. He was also seen by our hospitalist Dr. Riley in the emergency department who felt patient was appropriate to discharge from the emergency department rather than keeping for observation. Plan is for patient have repeat BNP checked tomorrow and have him hold his Lasix. He did discuss the case with Dr. Duncan the patient's agricultural engineering teacher who states that if his renal function is improving they could restart his Lasix at 40 mg. Discussed with patient plan to have close observation to make sure he is not becoming fluid overloaded again. Was giving very gentle hydration here in the department at 100 cc/hour. All questions answered. Discharge Plan Departure Patient Disposition: Home Clinical Impression: Acute kidney injury Instructions: DI for Acute Kidney Injury Activity Restrictions/Additional Instructions: Have your renal function rechecked tomorrow. A prescription for outpatient lab draw is included in your discharge paperwork. Stop your Lasix as you are aware this is the likely cause of your changes today. After you have your labs rechecked, contact Dr. Dove or Dr. Duncan for direction about when to restart your lasix. Dr. Duncan feels that once your renal function is improving plan will be to restart your lasix at 40mg daily. I would recommend discussing referral to a plant tender to help with balancing your medications and her cardiac disease with her chronic renal dysfunction. If you have any fevers, lightheadedness or passing out, new chest pain, increasing shortness of breath, decrease or if you are not having any urine output, very dark urine, persistent vomiting or other new or concerning symptoms please return to the emergency department. Prescriptions: No Action lisinopril 40 mg Tablet 40 mg PO QAM Qty: 0 RF: 0 rosuvastatin [Crestor] 10 MG tablet 10 mg PO QPM Qty: 0 RF: 0 coenzyme Q10 [CoQ-10] 100 mg Capsule 100 mg PO DAILY Qty: 0 RF: 0 aspirin 81 MG tablet,delayed release (DR/EC) 81 mg OR QPM Qty: 0 RF: 0 furosemide [Lasix] 40 mg tablet 60 mg PO BID Qty: 10 RF: 0 insulin glargine 100 unit/mL solution 25 units subcut BID RF: 0 metoprolol succinate 100 mg tablet extended release 24 hr 100 mg PO BID RF: 0 insulin aspart U-100 100 unit/mL solution 40 - 50 units subcut BID RF: 0 docusate sodium 100 mg Capsule 100 mg PO DAILY RF: 0 lisinopril 40 mg Tablet 20 mg PO QPM RF: 0 [id number] serr [Osteo Bi-Flex (5-Loxin)] 1,500-400-100 mg-unit-mg Tablet 1 tab PO BID RF: 0 apixaban 2.5 mg tablet 2.5 mg PO BID RF: 0 amiodarone in dextrose 5 % 150 mg/100 mL (1.5 mg/mL) solution See Rx Instructions .ROUTE .COMPLEX Qty: 1200 RF: 0 Referrals: Garfield Dove MD [Primary Care Provider] - Rick Duncan MD [Physician] -
--- NOTE | 2021-03-28 14:20 | DI.RAD.S_ITS ---
PROCEDURE: XR CHEST 1V INDICATIONS: acute kidney failure TECHNIQUE: One view of the chest was acquired. COMPARISON: [facility], CR, XR CHEST 1V, 03/22/2021, 11:24. FINDINGS: Surgical changes and devices: Left-sided dual-chamber pacemaker/defibrillator noted. Lungs and pleura: Lungs are clear. No pleural effusions or pneumothorax. Platelike atelectasis or scarring noted left lung base. Remainder the lungs and pleural space are clear. Mediastinum: Heart size is enlarged. Atherosclerotic vascular calcification noted in the aortic arch. Bones and chest wall: No suspicious bony lesions. Overlying soft tissues appear unremarkable. IMPRESSION: No acute cardiopulmonary findings Cardiomegaly and dual chamber pacemaker without vascular congestion. Dictated by: Emory Ford M.D. on 03/28/2021 at 14:00 Approved by: Emory Ford M.D. on 03/28/2021 at 14:02
--- NOTE | 2021-03-28 14:21 | DI.CT.S_ITS ---
PROCEDURE: CT KIDNEY URETER BLADDER (KUB) INDICATIONS: acute renal failure TECHNIQUE: Noncontrast 5 mm thick sections acquired from the diaphragms to the symphysis. 5 mm thick coronal and sagittal reformats were then performed. For radiation dose reduction, the following was used: automated exposure control, adjustment of mA and/or kV according to patient size. COMPARISON: [facility], US, US ABDOMEN LIMITED, 03/20/2021, 13:03. [facility], CT, CT CHEST WO CON, 04/21/2020, 14:27. FINDINGS: Lower thorax: Lung bases are clear. Heart size is enlarged, and there is a pacemaker/defibrillator present. Dense coronary artery vascular calcification present as well. Liver: Normal in size and attenuation. No contour deformity present. Biliary system: Cholecystectomy. No intra or extrahepatic bile duct dilatation. Pancreas: As below. Pancreatic head unremarkable. 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 Short perigastric suture line noted. Adrenals: Normal morphology and density. Reproductive system: Unremarkable as visualized. Urinary system: Mild bilateral renal atrophy and moderate perinephric stranding noted. No hydronephrosis or calculi present. Suggestion of anterior right renal cortical cyst measures 1.7 cm. Additional hyperdense exophytic left renal cortical nodules are also noted each measuring less than 1.2 cm. Gastrointestinal system: The bowel appears unremarkable with no evidence of bowel obstruction or inflammation. The stomach appears unremarkable. Sigmoid and descending colon diverticulosis without evidence of acute diverticulitis. Appendix: Probable appendectomy. No findings to suggest acute appendicitis. Peritoneal spaces: No mesenteric or retroperitoneal adenopathy. No free air. No free fluid. Vasculature: Dense aortic atherosclerotic calcification present. There is moderate right common iliac stenosis and probable moderate bilateral on renal artery stenosis. Musculoskeletal: Periumbilical hernia contains several loops of small bowel without obstruction. Additionally, there is subcutaneous induration bilaterally in noted just above the level of the umbilicus which is most consistent with a sequelae of multiple subcutaneous injections. Multilevel degenerative changes noted involving the lumbar spine present. Bilateral inguinal hernias contain fat without bowel involvement. IMPRESSION: 1. Mild bilateral renal atrophy and bilateral probable at least moderate calcific renal artery stenosis. Consider follow-up CTA if possible or ultrasound vascular evaluation. 2. Bilateral renal cysts some of which are hyperdense can also be further evaluated by ultrasound or MRI. 3. 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 Correlate with surgical history. 4. Periumbilical subcutaneous edema/induration consistent with sequelae of chronic subcutaneous injections. 5. Small periumbilical hernia containing small bowel loops without obstruction or incarceration. Dictated by: Emory Ford M.D. on 03/28/2021 at 13:37 Approved by: Emory Ford M.D. on 03/28/2021 at 14:00
[2021-03-28] MEDS: SODIUM CHLORIDE 0.9% 1,000 ML 100 ML IV (15:42)
[2021-03-28] MEDS: INSULIN REGULAR 100 UNIT/ML 3 ML VIAL 20 UNIT SUBCUT (15:54)
[2021-03-28 16:14] LABS: COVID19 - ADMIT (NP swab/PCR) Negative (Negative)
--- NOTE | 2021-03-28 16:43 | PM.CN ---
History of Present Illness Consult details Date Patient Seen: 03/28/21 Time Patient Seen: 16:43 Chief complaint: Kidney issues, sent by doctor Reason for consult: elevated cr Requesting provider: Milana Lucio Narrative: This is a 80-year-old male patient with a history coronary artery disease with stent placement, NE, ischemic cardiomyopathy with systolic heart failure (EF30-35%), atrial fibrillation and AICD implantation, CKD3, DM2 who was sent to the emergency room for an elevated creatinine by a his pie icer machine, Dr. Duncan. According to his pie icer machine, Yesterday his creatinine was 3.8, with a baseline of around 1.6-1.8 according to review of his chart. One week ago, the patient presented to the emergency room with shortness of breath and his furosemide was increased to 60 mg of Lasix twice a day. Normally, the patient states that he takes about 20 mg of Lasix, and is documented in the emergency room visit that he had not been taking any at that point. Upon review of electronic prescriptions, the patient has 20 mg furosemide tablets which appear to be prescribed for 40 mg per day. The patient is feeling well, he denies any palpitations, shortness of breath more than his usual baseline, lower extremity edema, chest pain, nausea, vomiting, or diarrhea. In the emergency room, the patient's vital signs were unremarkable, and he appeared well. Laboratory evaluation showed an unremarkable CBC. Chemistry panel revealed a creatinine of 3.51, somewhat improved from the reported 3.8. His glucose was also 429. He was given gentle fluid hydration in the emergency room and 20 units of regular insulin. I called and spoke with Dr. Duncan who recommended gentle fluid hydration as noted above as well as continued monitoring of his creatinine. The patient very much wanted to go home. Meds Home Medications and Allergies Home Medications Medication Instructions Recorded Confirmed Type lisinopril 40 mg PO QAM #0 01/20/08 11/18/18 History coenzyme Q10 [CoQ-10] 100 mg PO DAILY #0 07/15/12 11/18/18 History rosuvastatin [Crestor] 10 mg PO QPM #0 07/15/12 11/18/18 History aspirin 81 mg OR QPM #0 12/11/17 11/18/18 History furosemide [Lasix] 60 mg PO BID #10 tab 11/15/18 11/18/18 Rx apixaban 2.5 mg PO BID 11/18/18 11/18/18 History docusate sodium 100 mg PO DAILY 11/18/18 11/18/18 History [id number] serr 1 tab PO BID 11/18/18 11/18/18 History [Osteo Bi-Flex (5-Loxin)] insulin aspart U-100 40 - 50 units SUBCUT BID 11/18/18 11/18/18 History insulin glargine 25 units SUBCUT BID 11/18/18 11/18/18 History lisinopril 20 mg PO QPM 11/18/18 11/18/18 History metoprolol succinate 100 mg PO BID 11/18/18 11/18/18 History amiodarone in dextrose 5 % See Rx Instructions .ROUTE 11/19/18 Rx .COMPLEX #1200 ml Allergies Allergy/AdvReac Type Severity Reaction Status Date / Time amoxicillin Allergy Mild DIARRHEA Verified 03/28/21 12:24 naproxen Allergy Mild DIARRHEA Verified 03/28/21 12:24 Penicillins [PENICILLINS] Allergy Unknown Verified 03/28/21 12:24 Review of Systems Review of Systems Narrative: All other systems reviewed with the patient and are negative unless otherwise stated. Exam Vital Signs (past 8 hours): - 03/28/21 12:19 Temperature 97.4 F L Pulse Rate 83 Respiratory Rate 16 Blood Pressure 109/56 L Pulse Oximetry 95 Oxygen Delivery Method Room Air Narrative Exam Narrative: GENERAL APPEARANCE: Well developed, well nourished, in no acute distress. SKIN: Inspection of the skin reveals no rashes, ulcerations or petechiae. HEENT: Normocephalic atraumatic, extraocular muscles are intact, oropharynx is clear and mucous membranes are moist, neck is supple without adenopathy NECK: Supple and symmetric. There was no thyroid enlargement, and no tenderness, or masses were felt. CHEST: Normal AP diameter and normal contour without any kyphoscoliosis. LUNGS: Auscultation of the lungs revealed no wheezes, rhonchi, or rales. CARDIOVASCULAR: There was a regular rate and rhythm without any murmurs, gallops, rubs. Peripheral pulses were 2+ and symmetric. ABDOMEN: Soft and nontender. + periumbilical hernia. MUSCULOSKELETAL: There was no tenderness or effusions noted. Muscle strength and tone were normal. EXTREMITIES: No cyanosis, clubbing or edema. NEUROLOGIC: Alert and oriented x 3. Normal affect. Gait was normal. Strength is +5/5 in the Upper Extremities and Lower Extremities Bilaterally. Objective Labs Result Diagrams: 03/28/21 12:40 03/28/21 12:40 Labs: Laboratory Results - last 24 hr 03/28/21 03/28/21 03/28/21 12:40 12:40 14:44 WBC 9.6 RBC 4.78 Hgb 15.0 Hct 46.9 MCV 98.2 MCH 31.4 MCHC 32.0 RDW 13.9 Plt Count 212 Neut % (Auto) 73.7 Lymph % (Auto) 13.6 L Motley % (Auto) 11.4 Eos % (Auto) 0.6 L Baso % (Auto) 0.7 Neut # (Auto) 7100 H Lymph # (Auto) 1300 Motley # (Auto) 1100 H Eos # (Auto) 100 Baso # (Auto) 100 Sodium 134 L Potassium 5.0 Chloride 96 L Carbon Dioxide 27 BUN 77 H Creatinine 3.51 H Estimated GFR 16.8 L BUN/Creatinine Ratio 21.9 Glucose 429 H D Calcium 9.6 Total Bilirubin 0.7 AST 42 ALT 32 Alkaline Phosphatase 77 Total Protein 7.1 Albumin 4.1 Globulin 3.0 Albumin/Globulin Ratio 1.4 Lipase 75 SARS-CoV-2 (PCR) Negative Assessment & Plan Assessment & Plan narrative: This is a 80-year-old male patient with a history coronary artery disease with stent placement, NE, ischemic cardiomyopathy with systolic heart failure (EF30-35%), atrial fibrillation and AICD implantation, CKD3, DM2 who was sent to the emergency room for an elevated creatinine by a his pie icer machine, Dr. Duncan. Dr. Duncan recommended continued observation to monitor AZAR in setting of likely over diuresis with furosemide. However, the patient very much wanted to go home, it seems reasonable to attempt trial at home at this time. He is currently receiving gentle fluid hydration, and will hold his Lasix dose until a repeat BMP can be repeated tomorrow as an outpatient. If continuing to improve, he can resume his usual home dosing of Lasix which appears to be 40 mg daily. I do recommend that he follow-up with his primary care provider in the next few days form further monitoring of his kidney function as well, and if creatinine again rises or he develops worsening swelling, shortness of breath, or low urine output he return for repeat evaluation. Diagnoses: 1. AZAR on CKD III 2. type 2 diabetes with hyperglycemia 3. Systolic heart failure, chronic Code: Full, surrogate decision maker is , Irish
[2021-03-28 17:54] LABS: Appearance Urine UA CLEAR; Bacteria Urine None Seen; Bilirubin Urine UA NEGATIVE (NEGATIVE); Color Urine UA YELLOW; Glucose Urine UA 2+ g/dL (Negative); Ketones Urine UA NEGATIVE (NEGATIVE); Leukocyte Esterase Urine UA NEGATIVE (NEGATIVE); Nitrite Urine UA NEGATIVE (Negative); Occult Blood Urine UA NEGATIVE (Negative); Protein Urine UA NEGATIVE (Negative); RBC Urine None Seen (0-5/HPF); Urobilinogen Urine UA 0.2 E.U./dL (0.2); WBC Urine None Seen (0-5/HPF)
[2021-03-28 18:17] LABS: Culture Indicated Urine Cult Not Indicated
== END 2021-03-28 17:49 | disposition home or self-care (01) ==
PROVIDERS: Emergency Provider Emergency Medicine; Family Provider Internal Medicine; PCP Internal Medicine; Referring Provider Internal Medicine Cardiovascular Disease
DX: N17.9 Acute kidney failure, unspecified (principal); E11.65 Type 2 diabetes mellitus with hyperglycemia; Z79.4 Long term (current) use of insulin; Z95.5 Presence of coronary angioplasty implant and graft; Z20.822 Contact with and (suspected) exposure to COVID-19; Z79.01 Long term (current) use of anticoagulants
CPT/HCPCS: 36415; 71045; 74176; 80053; 81001; 82962; 83690; 85025; 87635; 93005; 93010; 96360; 96361; 96372; 99284; C9803

== ENCOUNTER → 2021-03-29 08:14 | Outpatient (CLI) | payer MEDICARE, OTHER, SELFPAY ==
[2018-11-18 20:34] VITALS: BMI 28.7
[2021-03-29 08:53] LABS: BUN Creatinine Ratio 24.4 (6-22); Blood Urea Nitrogen 75 mg/dL (9-20); Calcium 9.9 mg/dL (8.4-10.2); Carbon Dioxide 32 mmol/L (22-32); Chloride 96 mmol/L (98-107); Estimated Glomerular Filt Rate 19.6 mL/min (>60); Glucose 339 mg/dL (80-110); HEMOLYSIS < 15 (0-50); Sodium 136 mmol/L (137-145)
[2021-03-29 08:54] LABS: Potassium 5.4 mmol/L (3.4-5.1)
== END ==
PROVIDERS: Family Provider Internal Medicine; PCP Internal Medicine; Referring Provider Emergency Medicine; Visit Provider Emergency Medicine
DX: N17.9 Acute kidney failure, unspecified (principal)
CPT/HCPCS: 36415; 80048

== ENCOUNTER → 2021-05-03 14:49 | Outpatient (CLI) | payer MEDICARE, OTHER, SELFPAY ==
[2018-11-18 20:34] VITALS: BMI 28.7
[2021-05-03 15:58] LABS: COVID19 -Nasal RAPID Negative (Negative)
== END ==
PROVIDERS: Family Provider Internal Medicine; PCP Internal Medicine; Referring Provider Internal Medicine; Visit Provider Internal Medicine
DX: Z20.822 Contact with and (suspected) exposure to COVID-19 (principal)
CPT/HCPCS: 87635; C9803

== ENCOUNTER → 2021-05-04 14:29 | Outpatient (CLI) | payer MEDICARE, OTHER, SELFPAY ==
[2018-11-18 20:34] VITALS: BMI 28.7
--- NOTE | 2021-05-09 10:03 | PM.PFT.1 ---
Pulmonary Function Test Referral & Results Date Patient Seen: 05/04/21 Requesting provider: Rick Duncan Results: The spirometry demonstrates an FVC of 2.05 L which is 50% of predicted. The FEV1 was measured at 1.18 L which is 41% of predicted. The FEV1/FVC ratio was 58 which is 81% of predicted. Following the administration of bronchodilator there was a 14% improvement in FEV1 and a 50% improvement in FEF 25-75%. Lung volumes show an SVC of 2.07 L which is 45% of predicted. The diffusing capacity was measured at 22.08 which is 65% of predicted. No hemoglobin value was provided, so no correction for potential anemia could be made, if appropriate. Interpretation: This study demonstrates moderately severe obstructive lung disease with evidence of benefit following bronchodilator based on improvement in FEV1 and more notable improvement in FEF 25-75% which would suggest improvement in small airway flow There is also moderate restrictive lung disease based on reduction SVC There is also moderate reduction diffusing capacity suggesting element of disease at the capillary alveolar level Compared to PFTs performed in November 2020, current study is essentially unchanged
== END ==
PROVIDERS: Family Provider Internal Medicine; PCP Internal Medicine; Referring Provider Internal Medicine Cardiovascular Disease; Visit Provider Internal Medicine Cardiovascular Disease
DX: R06.02 Shortness of breath (principal); J98.8 Other specified respiratory disorders; Z87.891 Personal history of nicotine dependence
CPT/HCPCS: 94060; 94726; 94729

== ENCOUNTER → 2021-05-08 14:10 | Outpatient (CLI) | payer MEDICARE, OTHER, SELFPAY ==
[2018-11-18 20:34] VITALS: BMI 28.7
[2021-05-08 15:51] LABS: BUN Creatinine Ratio 16.2 (6-22); Blood Urea Nitrogen 33 mg/dL (9-20); Calcium 9.7 mg/dL (8.4-10.2); Carbon Dioxide 30 mmol/L (22-32); Chloride 103 mmol/L (98-107); Estimated Glomerular Filt Rate 31.4 mL/min (>60); Glucose 328 mg/dL (80-110); HEMOLYSIS < 15 (0-50); Potassium 5.3 mmol/L (3.4-5.1); Sodium 138 mmol/L (137-145)
== END ==
PROVIDERS: Family Provider Internal Medicine; PCP Internal Medicine; Referring Provider Internal Medicine Cardiovascular Disease; Visit Provider Internal Medicine Cardiovascular Disease
DX: I47.2 Ventricular tachycardia (principal); Z79.899 Other long term (current) drug therapy
CPT/HCPCS: 36415; 80048

== ENCOUNTER → 2021-05-29 15:01 | Outpatient (CLI) | payer MEDICARE, OTHER, SELFPAY ==
[2018-11-18 20:34] VITALS: BMI 28.7
[2021-05-29 16:47] LABS: BUN Creatinine Ratio 19.2 (6-22); Blood Urea Nitrogen 34 mg/dL (9-20); Calcium 9.4 mg/dL (8.4-10.2); Carbon Dioxide 29 mmol/L (22-32); Chloride 103 mmol/L (98-107); Glucose 228 mg/dL (80-110); HEMOLYSIS 16 (0-50); Sodium 138 mmol/L (137-145)
[2021-05-29 16:49] LABS: Potassium 5.7 mmol/L (3.4-5.1)
== END ==
PROVIDERS: Family Provider Internal Medicine; PCP Internal Medicine; Referring Provider Internal Medicine Cardiovascular Disease; Visit Provider Internal Medicine Cardiovascular Disease
DX: I50.22 Chronic systolic (congestive) heart failure (principal)
CPT/HCPCS: 36415; 80048

== ENCOUNTER → 2021-06-01 16:20 | Outpatient (CLI) | payer MEDICARE, OTHER, SELFPAY ==
[2018-11-18 20:34] VITALS: BMI 28.7
[2021-06-01 17:20] LABS: BUN Creatinine Ratio 18.6 (6-22); Blood Urea Nitrogen 30 mg/dL (9-20); Calcium 9.3 mg/dL (8.4-10.2); Carbon Dioxide 28 mmol/L (22-32); Chloride 104 mmol/L (98-107); Estimated Glomerular Filt Rate 41.3 mL/min (>60); Glucose 314 mg/dL (80-110); HEMOLYSIS 18 (0-50); Potassium 4.8 mmol/L (3.4-5.1); Sodium 137 mmol/L (137-145)
== END ==
PROVIDERS: Family Provider Internal Medicine; PCP Internal Medicine; Referring Provider Nurse Practitioner; Visit Provider Nurse Practitioner
DX: E87.5 Hyperkalemia (principal); N28.9 Disorder of kidney and ureter, unspecified
CPT/HCPCS: 36415; 80048

== ENCOUNTER 2021-06-03 11:32 | Emergency (ER) | payer MEDICARE, OTHER, SELFPAY ==
[2018-11-18 20:34] VITALS: BMI 28.7
[2021-06-03] VITALS (11 sets, daily range): BP systolic 139–165; BP diastolic 66–91; PULSE 69–109; RESP 16–20; TEMP 36.9; O2SAT 95–97
--- NOTE | 2021-06-03 11:42 | DI.RAD.S_ITS ---
PROCEDURE: XR CHEST 1V INDICATIONS: short of breath TECHNIQUE: One view of the chest was acquired. COMPARISON: [facility], CT, CT CHEST WO CON, 04/21/2020, 14:27. [facility], CR, XR CHEST 2V, 09/22/2019, 10:12. [facility], CR, XR CHEST 1V, 03/22/2021, 11:24. [facility], CR, XR CHEST 1V, 03/28/2021, 14:24. FINDINGS: Surgical changes and devices: An AICD is seen. The leads are seen in stable positions. Lungs and pleura: Lungs are clear, yet hyperexpanded. No pleural effusions or pneumothorax. Mediastinum: Atherosclerotic calcification of the aortic arch is noted. The aorta is prominent and tortuous. There is mild cardiomegaly. Bones and chest wall: No suspicious bony lesions. S-shaped scoliotic curvature is seen. Overlying soft tissues appear unremarkable. IMPRESSION: Hyperexpanded lungs, without an acute cardiopulmonary process identified. Postoperative and degenerative changes are seen. Dictated by: Drew Cifuentes M.D. on 06/03/2021 at 11:12 Approved by: Drew Cifuentes M.D. on 06/03/2021 at 11:13
--- NOTE | 2021-06-03 11:50 | ED.ARRPALP ---
HPI - Arrhythmia/Palpitations General Chief Complaint: Arrhythmia/Palpitations Stated Complaint: Heart Fast and Hard Time Seen by Provider: 06/03/21 11:41 Source: patient and family Mode of arrival: Ambulatory History of Present Illness HPI narrative: Patient is a 80-year-old male with history of coronary artery disease with stent placement, ischemic cardiomyopathy with systolic heart failure EF 30-35%, atrial fibrillation, AICD implant,, stage 3 kidney disease, his type 2 diabetes, possible COPD presenting today with increasing shortness of breath and palpitations. He said around 230 in the morning he felt some irregular heart beat. He is having increasing shortness of breath with exertion. He denies any fever or cough. He has no chest pain. No nausea or vomiting. He has no lower extremity edema. He says it has persisted throughout the day prompting his emergency department visit. He apparently was cardioverted 2 weeks ago. Related Data Home Medications Medication Instructions Recorded Confirmed lisinopril 40 mg tablet 40 mg PO QAM #0 01/20/08 11/18/18 coenzyme Q10 100 mg capsule 100 mg PO DAILY #0 07/15/12 11/18/18 (CoQ-10) rosuvastatin 10 mg tablet (Crestor) 10 mg PO QPM #0 07/15/12 11/18/18 aspirin 81 mg tablet,delayed 81 mg OR QPM #0 12/11/17 11/18/18 release apixaban 2.5 mg tablet 2.5 mg PO BID 11/18/18 11/18/18 docusate sodium 100 mg capsule 100 mg PO DAILY 11/18/18 11/18/18 glucosamine [id number] 1 tab PO BID 11/18/18 11/18/18 robert 1,500 mg-400 unit-100 mg tablet (Osteo Bi-Flex (5-Loxin)) insulin aspart U-100 100 unit/mL 40 - 50 units SUBCUT BID 11/18/18 11/18/18 subcutaneous solution insulin glargine 100 unit/mL 25 units SUBCUT BID 11/18/18 11/18/18 subcutaneous solution lisinopril 40 mg tablet 20 mg PO QPM 11/18/18 11/18/18 metoprolol succinate 100 mg 100 mg PO BID 11/18/18 11/18/18 tablet,extended release 24 hr Previous Rx's Medication Instructions Recorded furosemide 40 mg tablet (Lasix) 60 mg PO BID #10 tab 11/15/18 amiodarone 150 mg/100 mL (1.5 See Rx Instructions .ROUTE 11/19/18 mg/mL) in dextrose 5 % intravenous .COMPLEX #1200 ml soln Allergies Allergy/AdvReac Type Severity Reaction Status Date / Time amoxicillin Allergy Mild DIARRHEA Verified 03/28/21 12:24 naproxen Allergy Mild DIARRHEA Verified 03/28/21 12:24 Penicillins [PENICILLINS] Allergy Unknown Verified 03/28/21 12:24 Review of Systems Review of Systems ROS Unobtainable: All systems reviewed & are unremarkable except as noted in HPI and below Constitutional Constitutional: Denies body ache(s), Denies chills, Denies fever(s), Denies headache(s) and Denies weakness Eyes Eyes: Denies blurry vision ENT Ears, Nose, Mouth, and Throat: Denies headache(s) and Denies sore throat Cardiovascular Cardiovascular: Denies chest pain, Denies leg edema, Denies lightheadedness, Reports palpitations, Reports dyspnea, Reports dyspnea on exertion and Reports orthopnea Respiratory Respiratory: Denies chest congestion, Denies cough, Reports dyspnea and Reports dyspnea on exertion Gastrointestinal Gastrointestinal: Denies abdominal pain, Denies nausea and Denies vomiting Genitourinary Genitourinary: Denies urinary hesitancy Musculoskeletal Musculoskeletal: Denies back pain and Denies myalgias Integumentary/Breasts Skin/Breast: Denies rash Neurologic Neurologic: Denies abnormal speech, Denies headache(s) and Denies weakness Endocrine Endocrine: Reports palpitations Patient History Medical History (Updated 06/03/21 @ 14:39 by Amparo Milan DO) Atrial fibrillation Hyperlipidemia Hypertension Ischemic cardiomyopathy Myocardial infarction Obesity Obstructive sleep apnea of adult Primary insomnia Snoring Type 2 diabetes mellitus Surgical History History of cholecystectomy History of ERCP History of hernia repair History of left knee replacement History of partial knee replacement History of resection of 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 Mother Leukemia Social History household members: spouse Smoking Status: Former smoker alcohol intake: former Smoking Status: Former smoker alcohol intake frequency: holidays/special occasions only Substance Use Type: does not use Exam Initial Vital Signs Initial Vital Signs: Vital Signs Temperature 98.4 F 06/03/21 11:39 Pulse Rate 69 06/03/21 11:39 Respiratory Rate 16 06/03/21 11:39 Blood Pressure 165/91 H 06/03/21 11:39 Pulse Oximetry 96 06/03/21 11:39 GENERAL: Alert pleasant 80-year-old male and in no acute distress. HEENT: Head atraumatic,EOMI, pupils reactive, face symmetric, moist mucous membranes CARDIOVASCULAR: Regular rate and rhythm without murmurs, rubs or gallops. RESPIRATORY: Breath sounds equal bilaterally no rales or rhonchi actually speaks in full sentences ABDOMEN: Soft, nontender. Normoactive bowel sounds all 4 quadrants. No guarding or rebound. : No CVA tenderness EXTREMITIES: Normal range of motion, no clubbing or edema. Neurovascularly intact NEUROLOGICAL: Alert and oriented x4.Normal gait and speech. Cranial nerves II through XII grossly intact. SKIN: Warm, dry, no laceration, no petechiae, no rashes or lesions. Course Orders Ordered: ED Orders 06/03/21 11:41 Consult to Respiratory Therapy Evaluate & Treat EKG-12 Lead Stat 06/03/21 11:42 XR chest 1V Stat 06/03/21 11:44 COVID19 -Nasal swab/Pre-Proc Stat 06/03/21 11:49 Complete Blood Count AUTO DIFF Stat Comprehensive Metabolic Panel Stat Magnesium Stat NT-proBNP (BNP-Adult 18+) Stat Procalcitonin Stat Troponin & CK Cardiac Panel Stat Discontinued Medications Albuterol/Ipratropium (Albuterol/Ipratropium 3 Ml Ampul) 3 ml INH NOW ONE Stop: 06/03/21 11:42 Last Admin: 06/03/21 12:35 Dose: 3 ml Documented by: EFREN Methylprednisolone (Methylprednisolone 125 Mg/2 Ml Vial) 125 mg IV NOW ONE Stop: 06/03/21 13:21 Last Admin: 06/03/21 13:31 Dose: 125 mg Documented by: [email or web address] Methylprednisolone (Methylprednisolone 125 Mg/2 Ml Vial) 125 mg IV NOW ONE Stop: 06/03/21 13:32 Last Admin: 06/03/21 13:35 Dose: 125 mg Documented by: SOURAV Vital Signs Vital signs: Vital Signs - 8 hr 06/03/21 11:39 06/03/21 11:43 06/03/21 12:00 Temperature 98.4 F Pulse Rate 69 69 69 Respiratory Rate 16 20 18 Blood Pressure 165/91 H 143/71 H Pulse Oximetry 96 96 96 06/03/21 12:30 06/03/21 12:36 06/03/21 13:00 Temperature Pulse Rate 69 69 69 Respiratory Rate 16 18 17 Blood Pressure 139/70 143/71 H Pulse Oximetry 97 96 97 06/03/21 13:30 06/03/21 14:00 06/03/21 14:01 Temperature Pulse Rate 69 69 69 Respiratory Rate 19 17 18 Blood Pressure 151/66 H 143/68 H Pulse Oximetry 96 97 96 06/03/21 14:30 06/03/21 15:00 Temperature Pulse Rate 69 69 Respiratory Rate 16 17 Blood Pressure 144/79 H 149/79 H Pulse Oximetry 95 95 MDM - Arrhythmia/Palpitations Lab Data Result diagrams: 06/03/21 11:49 06/03/21 11:49 Labs: Lab Results 06/03/21 06/03/21 06/03/21 Range/Units 11:44 11:49 11:49 WBC 11.4 H (4.5-11.0) X10^3/uL RBC 4.95 (4.5-5.9) X10^6/uL Hgb 15.4 (13.5-17.5) g/dL Hct 47.8 (41-53) % MCV 96.4 (80-100) fL MCH 31.0 (26-34) PG MCHC 32.2 (30-36) % RDW 14.4 (11.6-14.8) % Plt Count 189 (150-400) X10^3/uL Neut % (Auto) 53.9 (50-75) % Lymph % (Auto) 32.6 (25-40) % Dickenson % (Auto) 11.0 (3-14) % Eos % (Auto) 1.5 L (2-4) % Baso % (Auto) 1.0 (0-2) % Neut # (Auto) 6100 (6842-8260) /uL Lymph # (Auto) 3700 (8949-9206) /uL Dickenson # (Auto) 1300 H (0-900) /uL Eos # (Auto) 200 (0-450) /uL Baso # (Auto) 100 (0-100) /uL Sodium (137-145) mmol/L Potassium (3.4-5.1) mmol/L Chloride (98-107) mmol/L Carbon Dioxide (22-32) mmol/L BUN (9-20) mg/dL Creatinine (0.66-1.25) mg/dL Estimated GFR (>60) mL/min BUN/Creatinine Ratio (6-22) Glucose (80-110) mg/dL Calcium (8.4-10.2) mg/dL Magnesium 2.1 (1.6-2.3) mg/dL Total Bilirubin (0.2-1.3) mg/dL AST (17-59) IU/L ALT (<50) IU/L Alkaline Phosphatase (38-126) U/L Total Creatine Kinase 47 L (55-170) U/L CK-MB (CK-2) TNP CK-MB (CK-2) Rel Index TNP Troponin I 0.014 (0.01-0.034) ng/mL NT-Pro-B Natriuret Pep 1710 H (<450) pg/mL Total Protein (6.3-8.2) g/dL Albumin (3.5-5.0) g/dL Globulin (1.7-4.1) g/dL Albumin/Globulin Ratio (1.0-2.8) Procalcitonin (<0.5) ng/mL SARS-CoV-2 (PCR) Negative (Negative) 06/03/21 06/03/21 Range/Units 11:49 11:49 WBC (4.5-11.0) X10^3/uL RBC (4.5-5.9) X10^6/uL Hgb (13.5-17.5) g/dL Hct (41-53) % MCV (80-100) fL MCH (26-34) PG MCHC (30-36) % RDW (11.6-14.8) % Plt Count (150-400) X10^3/uL Neut % (Auto) (50-75) % Lymph % (Auto) (25-40) % Dickenson % (Auto) (3-14) % Eos % (Auto) (2-4) % Baso % (Auto) (0-2) % Neut # (Auto) (5723-8377) /uL Lymph # (Auto) (0864-7374) /uL Dickenson # (Auto) (0-900) /uL Eos # (Auto) (0-450) /uL Baso # (Auto) (0-100) /uL Sodium 139 (137-145) mmol/L Potassium 4.8 (3.4-5.1) mmol/L Chloride 101 (98-107) mmol/L Carbon Dioxide 32 (22-32) mmol/L BUN 31 H (9-20) mg/dL Creatinine 1.72 H (0.66-1.25) mg/dL Estimated GFR 38.3 L (>60) mL/min BUN/Creatinine Ratio 18.0 (6-22) Glucose 126 H D (80-110) mg/dL Calcium 9.8 (8.4-10.2) mg/dL Magnesium (1.6-2.3) mg/dL Total Bilirubin 0.8 (0.2-1.3) mg/dL AST 31 (17-59) IU/L ALT 21 (<50) IU/L Alkaline Phosphatase 60 (38-126) U/L Total Creatine Kinase (55-170) U/L CK-MB (CK-2) CK-MB (CK-2) Rel Index Troponin I (0.01-0.034) ng/mL NT-Pro-B Natriuret Pep (<450) pg/mL Total Protein 7.2 (6.3-8.2) g/dL Albumin 4.0 (3.5-5.0) g/dL Globulin 3.2 (1.7-4.1) g/dL Albumin/Globulin Ratio 1.3 (1.0-2.8) Procalcitonin 0.10 (<0.5) ng/mL SARS-CoV-2 (PCR) (Negative) Urine Dip Bedside Urine Glucose Negative Bedside Urine Bilirubin - Negative Bedside Urine Ketone - Negative Urine Specific [place] 1.020 Bedside Urine Occult Blood - Negative Bedside Urine pH 6.0 Bedside Urine Protein - Negative Bedside Urine Urobilinogen - Negative Bedside Urine Nitrite - Negative Bedside Urine Leukocytes - Negative Esterase Imaging Data Chest x-ray: Radiologist's Impresson: PROCEDURE: XR CHEST 1V INDICATIONS: short of breath TECHNIQUE: One view of the chest was acquired. COMPARISON: [facility], CT, CT CHEST WO CON, 04/21/2020, 14:27. [facility], CR, XR CHEST 2V, 09/22/2019, 10:12. [facility], CR, XR CHEST 1V, 03/22/2021, 11:24. [facility], CR, XR CHEST 1V, 03/28/2021, 14:24. FINDINGS: Surgical changes and devices: An AICD is seen. The leads are seen in stable positions. Lungs and pleura: Lungs are clear, yet hyperexpanded. No pleural effusions or pneumothorax. Mediastinum: Atherosclerotic calcification of the aortic arch is noted. The aorta is prominent and tortuous. There is mild cardiomegaly. Bones and chest wall: No suspicious bony lesions. S-shaped scoliotic curvature is seen. Overlying soft tissues appear unremarkable. IMPRESSION: Hyperexpanded lungs, without an acute cardiopulmonary process identified. Postoperative and degenerative changes are seen. Dictated by: Drew Cifuentes M.D. on 06/03/2021 at 11:12 Approved by: Drew Cifuentes M.D. on 06/03/2021 at 11:13 ECG Data Interpretation: Paced rhythm rate 70 similar to previous MDM Narrative Medical decision making narrative: Records from [facility] have been received and reviewed it appears as though he was cardioverted on 04/26/2021. At here continues to have a stable rate of 69 with an occasional PVC. I think this is probably what he is feeling. Blood work is overall reassuring thought maybe to have a small episode of COPD exacerbation he was given nebulizer and Solu-Medrol however he says he really feels no different and is were concerned about the palpitation in his heart. The patient ambulates heart rate does increase slightly to 109. Oxygen remains above 90%. He does not seem to have significant shortness of breath. He was not experiencing improvement with nebulizer. This time I do not think COPD exacerbation. He is obviously having PVCs on the monitor. But his heart rate is extremely stable well on the monitor at 69 paced rhythm. We attempted to have the pacemaker interrogated however the machine was not working. We did call the wrap is I spoke to the read myself. He says the last synchronization was on May 30, he did have an episode of atrial fibrillation on the in heart rate was up to 163. He will be monitoring him more closely because his battery is due to be changed in the next 7 months. Patient is ambulatory in the ED without symptoms. At this time recommend outpatient follow-up. Discharge Plan Departure Patient Disposition: Home Clinical Impression: Premature ventricular contractions (PVCs) (VPCs) Instructions: Premature Ventricular Beats Activity Restrictions/Additional Instructions: *You have been diagnosed with skipped beats *What to do: You are not in atrial fibrillation but you are having skipped. Blood work is overall reassuring. I recommend following up with your cross tie tram loader *Continue to take medications as directed *Follow up with your primary care provider in 2-3 days Call your cross tie tram loader tomorrow to schedule follow-up appointment in 1-2 *Return to ER if you should have increasing palpitations dizziness lightheadedness chest pain or shortness of breath or any new, worsening or concerning symptoms Prescriptions: No Action lisinopril 40 mg Tablet 40 mg PO QAM Qty: 0 RF: 0 rosuvastatin [Crestor] 10 MG tablet 10 mg PO QPM Qty: 0 RF: 0 coenzyme Q10 [CoQ-10] 100 mg Capsule 100 mg PO DAILY Qty: 0 RF: 0 aspirin 81 MG tablet,delayed release (DR/EC) 81 mg OR QPM Qty: 0 RF: 0 furosemide [Lasix] 40 mg tablet 60 mg PO BID Qty: 10 RF: 0 insulin glargine 100 unit/mL solution 25 units subcut BID RF: 0 metoprolol succinate 100 mg tablet extended release 24 hr 100 mg PO BID RF: 0 insulin aspart U-100 100 unit/mL solution 40 - 50 units subcut BID RF: 0 docusate sodium 100 mg Capsule 100 mg PO DAILY RF: 0 lisinopril 40 mg Tablet 20 mg PO QPM RF: 0 [id number] serr [Osteo Bi-Flex (5-Loxin)] 1,500-400-100 mg-unit-mg Tablet 1 tab PO BID RF: 0 apixaban 2.5 mg tablet 2.5 mg PO BID RF: 0 amiodarone in dextrose 5 % 150 mg/100 mL (1.5 mg/mL) solution See Rx Instructions .ROUTE .COMPLEX Qty: 1200 RF: 0 Referrals: Garfield Dove MD [Primary Care Provider] - Rick Duncan MD [Physician] -
[2021-06-03 12:10] LABS: Creatine Kinase 47 U/L (55-170); Magnesium 2.1 mg/dL (1.6-2.3)
[2021-06-03 12:12] LABS: Alanine Aminotransferase 21 IU/L (<50); Albumin Globulin Ratio 1.3 (1.0-2.8); Alkaline Phosphatase 60 U/L (38-126); Aspartate Aminotransferase 31 IU/L (17-59); Bilirubin Total 0.8 mg/dL (0.2-1.3); Blood Urea Nitrogen 31 mg/dL (9-20); Calcium 9.8 mg/dL (8.4-10.2); Carbon Dioxide 32 mmol/L (22-32); Chloride 101 mmol/L (98-107); Estimated Glomerular Filt Rate 38.3 mL/min (>60); Globulin 3.2 g/dL (1.7-4.1); Glucose 126 mg/dL (80-110); HEMOLYSIS 38 (0-50); Potassium 4.8 mmol/L (3.4-5.1); Sodium 139 mmol/L (137-145); Total Protein 7.2 g/dL (6.3-8.2)
[2021-06-03 12:17] LABS: Add Manual Diff / Slide Review NO; Basophils Absolute Auto 100 /uL (0-100); Eosinophils Absolute Auto 200 /uL (0-450); Eosinophils Percent Auto 1.5 % (2-4); Hematocrit 47.8 % (41-53); Hemoglobin 15.4 g/dL (13.5-17.5); Lymphocytes Absolute Auto 3700 /uL (1100-4500); Lymphocytes Percent Auto 32.6 % (25-40); Mean Corpuscular HGB Conc 32.2 % (30-36); Mean Corpuscular Volume 96.4 fL (80-100); Monocytes Absolute Auto 1300 /uL (0-900); Neutrophils Absolute Auto 6100 /uL (1500-7000); Neutrophils Percent Auto 53.9 % (50-75); Platelet Count 189 X10^3/uL (150-400); Red Blood Cell Count 4.95 X10^6/uL (4.5-5.9); Red Cell Distribution Width 14.4 % (11.6-14.8); White Blood Cell Count 11.4 X10^3/uL (4.5-11.0)
[2021-06-03 12:22] LABS: COVID19 -Nasal RAPID Negative (Negative)
[2021-06-03 12:23] LABS: NT-proBNP (BNP-Adult 18+) 1710 pg/mL (<450); Troponin I 0.014 ng/mL (0.01-0.034)
[2021-06-03] MEDS: ALBUTEROL/IPRATROPIUM 3 ML AMPUL INH (12:35)
--- NOTE | 2021-06-03 12:40 | RT ---
pt nayely barragan tx well, no distress noted and on room air.
[2021-06-03] MEDS: methylPREDNISolone 125 MG/2 ML VIAL IV ×2 (13:31→13:35)
--- NOTE | 2021-06-03 15:02 | PC.NURSE ---
after ambulating around the ED.
== END 2021-06-03 15:22 | disposition home or self-care (01) ==
PROVIDERS: Emergency Provider Emergency Medicine; Family Provider Internal Medicine; PCP Internal Medicine
DX: I49.3 Ventricular premature depolarization (principal); R06.02 Shortness of breath; R00.2 Palpitations; R60.0 Localized edema; Z20.822 Contact with and (suspected) exposure to COVID-19
CPT/HCPCS: 36415; 71045; 80053; 81003; 82550; 83735; 83880; 84145; 84484; 85025; 87635; 93005; 94640; 96374; 99284; C9803; J2930

== ENCOUNTER → 2021-08-01 10:44 | Outpatient (CLI) | payer MEDICARE, OTHER, SELFPAY ==
[2018-11-18 20:34] VITALS: BMI 28.7
[2021-08-01 12:48] LABS: Alanine Aminotransferase 23 IU/L (<50); Albumin 4.3 g/dL (3.5-5.0); Albumin Globulin Ratio 1.5 (1.0-2.8); Alkaline Phosphatase 70 U/L (38-126); Aspartate Aminotransferase 31 IU/L (17-59); BUN Creatinine Ratio 15.9 (6-22); Blood Urea Nitrogen 27 mg/dL (9-20); Calcium 9.4 mg/dL (8.4-10.2); Carbon Dioxide 35 mmol/L (22-32); Chloride 99 mmol/L (98-107); Estimated Glomerular Filt Rate 38.8 mL/min (>60); Globulin 2.8 g/dL (1.7-4.1); Glucose 198 mg/dL (80-110); HEMOLYSIS 15 (0-50); Potassium 4.9 mmol/L (3.4-5.1); Sodium 137 mmol/L (137-145); Total Protein 7.1 g/dL (6.3-8.2)
[2021-08-01 13:16] LABS: Thyroid Stimulating Hormone 1.03 uIU/mL (0.47-4.68)
== END ==
PROVIDERS: Family Provider Internal Medicine; PCP Internal Medicine; Referring Provider Internal Medicine Cardiovascular Disease; Visit Provider Internal Medicine Cardiovascular Disease
DX: Z79.899 Other long term (current) drug therapy (principal)
CPT/HCPCS: 36415; 80053; 84443

== ENCOUNTER → 2021-11-02 11:05 | Outpatient (CLI) | payer MEDICARE, OTHER, SELFPAY ==
[2018-11-18 20:34] VITALS: BMI 28.7
[2021-11-02 12:27] LABS: Add Manual Diff / Slide Review NO; Basophils Absolute Auto 100 /uL (0-100); Basophils Percent Auto 0.6 % (0-2); Eosinophils Absolute Auto 200 /uL (0-450); Eosinophils Percent Auto 1.9 % (2-4); Hematocrit 43.8 % (41-53); Hemoglobin 14.2 g/dL (13.5-17.5); Lymphocytes Absolute Auto 3000 /uL (1100-4500); Lymphocytes Percent Auto 28.9 % (25-40); Mean Corpuscular HGB Conc 32.4 % (30-36); Mean Corpuscular Hemoglobin 31.3 PG (26-34); Mean Corpuscular Volume 96.6 fL (80-100); Monocytes Absolute Auto 1200 /uL (0-900); Monocytes Percent Auto 11.8 % (3-14); Neutrophils Absolute Auto 5800 /uL (1500-7000); Neutrophils Percent Auto 56.8 % (50-75); Platelet Count 178 X10^3/uL (150-400); Red Blood Cell Count 4.53 X10^6/uL (4.5-5.9); Red Cell Distribution Width 13.6 % (11.6-14.8); White Blood Cell Count 10.3 X10^3/uL (4.5-11.0)
[2021-11-02 12:41] LABS: BUN Creatinine Ratio 13.8 (6-22); Blood Urea Nitrogen 22 mg/dL (9-20); Calcium 9.4 mg/dL (8.4-10.2); Carbon Dioxide 31 mmol/L (22-32); Chloride 104 mmol/L (98-107); Estimated Glomerular Filt Rate 41.5 mL/min (>60); Glucose 128 mg/dL (80-110); HEMOLYSIS < 15 (0-50); Potassium 4.7 mmol/L (3.4-5.1); Sodium 140 mmol/L (137-145)
[2021-11-02 13:44] LABS: Folate > 20.0 ng/mL (2.76-20.0); Vitamin B12 451 pg/mL (239-931)
[2021-11-02 14:38] LABS: Creatinine Urine Random 171.5 mg/dL; Protein (Total) Urine Random 11 mg/dL (0-12); Protein Creatinine Ratio Urine 0.06 GRAM/24H
== END ==
PROVIDERS: Family Provider Internal Medicine; PCP Internal Medicine; Referring Provider Internal Medicine Nephrology; Visit Provider Internal Medicine Nephrology
DX: N17.9 Acute kidney failure, unspecified
CPT/HCPCS: 36415; 80048; 82570; 82607; 82746; 84156; 85025

== ENCOUNTER → 2022-01-03 10:54 | Outpatient (CLI) | payer MEDICARE, OTHER, SELFPAY ==
[2018-11-18 20:34] VITALS: BMI 28.7
[2022-01-03 12:34] LABS: Alanine Aminotransferase 16 IU/L (<50); Albumin Globulin Ratio 1.3 (1.0-2.8); Alkaline Phosphatase 60 U/L (38-126); Aspartate Aminotransferase 25 IU/L (17-59); BUN Creatinine Ratio 18.5 (6-22); Bilirubin Total 0.6 mg/dL (0.2-1.3); Blood Urea Nitrogen 29 mg/dL (9-20); Calcium 9.1 mg/dL (8.4-10.2); Carbon Dioxide 32 mmol/L (22-32); Chloride 104 mmol/L (98-107); Cholesterol 126 mg/dL (140-199); Estimated Glomerular Filt Rate 42.4 mL/min (>60); Glucose 158 mg/dL (80-110); HDL Cholesterol 52 mg/dL (40-60); HEMOLYSIS < 15 (0-50); LDL Cholesterol Calculated 56 mg/dL (<100); Potassium 4.6 mmol/L (3.4-5.1); Sodium 141 mmol/L (137-145); Triglycerides 89 mg/dL (35-150)
[2022-01-03 12:39] LABS: NT-proBNP (BNP-Adult 18+) 922 pg/mL (<450)
[2022-01-03 13:01] LABS: Thyroid Stimulating Hormone 1.55 uIU/mL (0.47-4.68)
== END ==
PROVIDERS: Family Provider Internal Medicine; PCP Internal Medicine; Referring Provider Internal Medicine Cardiovascular Disease; Visit Provider Internal Medicine Cardiovascular Disease
DX: I50.22 Chronic systolic (congestive) heart failure (principal); E78.5 Hyperlipidemia, unspecified; Z79.899 Other long term (current) drug therapy
CPT/HCPCS: 36415; 80053; 80061; 83880; 84443

== ENCOUNTER → 2022-01-18 13:14 | Outpatient (CLI) | payer MEDICARE, OTHER, SELFPAY ==
[2018-11-18 20:34] VITALS: BMI 28.7
--- NOTE | 2022-01-18 13:16 | DI.ECHO.S_ITS ---
[facility] +---------+ [facility] +---------+ : : [address] : [address] : : : : [id number] : : : : Phone: [phone]+ Echocardiogram Report + + :Name: FIOR RIOS Study Date: 01/18/2022 Height: 70 in : :[facility] ReadingLocation: Weight: 210 lb : : Gender: Male BSA: 2.1 m2 : :: 1940 Age: 81 yrs BP: 123/75 mmHg: :Reason For Study: CHF : : Performed By: Ranjit Armijo : :Referring: Rick Duncan : + + Interpretation Summary The left ventricle is moderately dilated. The ejection fraction is estimated to be 35-40%. Previous LVEF about 30 to 35%. mild to moderate global hypokinesis and severe hypokinesis to akinesis of the inferior and inferoposterior wall, particularly proximally, consistent with scar, but unchanged from the previous study. Diastolic parameters suggest a pseudonormalization pattern, consistent with probable elevated filling pressures. The right ventricle is normal size. There is a pacemaker lead in the right ventricle. Right ventricular systolic function is mildly reduced. There is moderate to severe mitral regurgitation. Compared to the prior echo study, there has been no change in the severity of mitral regurgitation. Suspect PMD of posterior mitral leaflet. There is mild tricuspid regurgitation. Compared to the prior echo exam, there has been no change in TR severity. The right ventricular systolic pressure is estimated to be at least 47 mmHg based on an estimated right atrial pressure of 8 mm Hg. In November 2018, it was about 44 mmHg. Procedure: A two-dimensional transthoracic echocardiogram with color flow and Doppler was performed. The study quality was technically good. Comparison is made with the echocardiogram of 11/28/20. The patient has a paced rhythm. Left Ventricle: There is normal left ventricular wall thickness. The left ventricle is moderately dilated. There is no thrombus. The ejection fraction is estimated to be 35-40%. mild to moderate global hypokinesis and severe hypokinesis to akinesis of the inferior and inferoposterior wall, particularly proximally, consistent with scar, but unchanged from the previous study. Diastolic parameters suggest a pseudonormalization pattern, consistent with probable elevated filling pressures. Right Ventricle: The right ventricle is normal size. There is a pacemaker lead in the right ventricle. Right ventricular systolic function is mildly reduced. Atria: Both atria are severely dilated. There has been no significant change since the previous study. There is no Doppler evidence for an atrial septal defect. Mitral Valve: There is mild mitral annular calcification. The mitral valve leaflets appear mildly thickened, but open well. Tented mitral leaflets. There is moderate to severe mitral regurgitation. Compared to the prior echo study, there has been no change in the severity of mitral regurgitation. Aortic Valve: The aortic valve is trileaflet. The aortic valve opens well. The aortic valve is mildly calcified. There is no aortic valve stenosis. No aortic regurgitation is present. Tricuspid Valve: The tricuspid valve is normal. There is mild tricuspid regurgitation. The right ventricular systolic pressure is estimated to be at least 47 mmHg based on an estimated right atrial pressure of 8 mm Hg. Compared to the prior echo exam, there has been no change in TR severity. Pulmonic Valve: The pulmonic valve leaflets are thin and pliable; valve motion is normal. There is trace pulmonic regurgitation. Great Vessels: The aortic root is normal size. There is aortic root sclerosis/calcification. The dimensions of the ascending aorta are normal. The pulmonary artery is normal size. The IVC is dilated (diameter is greater than 2.1 cm) yet it collapses greater than 50% with a sniff. This suggests a right atrial pressure of 8 mm Hg. Pericardium/ Pleura There is no pericardial effusion. There is no pleural effusion. MMode/2D Measurements & Calculations LVIDd: 6.6 cm LVOT diam: 2.0 cm LVIDs: 5.5 cm Ao root diam: 3.3 cm FS: 17.4 % asc Aorta Diam: 3.3 cm EPSS: 1.3 cm IVSd: 0.99 cm LVPWd: 0.73 cm LV nunez. diameter/BSA (cm/m^2): 3.1 LV sys. diameter/BSA (cm/m^2): 2.6 LA A2 area: 37.4 cm2 RA long axis: 6.8 cm LA A4 area: 29.1 cm2 RA area: 29.0 cm2 LA length (vol): 7.3 cm RA vol: 105.3 ml LA vol: 126.0 ml RA : 49.4 ml/m2 LA vol index: 59.1 ml/m2 IVC diam: 2.3 cm TAPSE: 2.4 cm Doppler Measurements & Calculations Ao V2 max: 149.1 cm/sec LVOT Max Joshua: 81.0 cm/sec Ao V2 mean: 110.7 cm/sec LV V1 max P.6 mmHg Ao max P.9 mmHg LV V1 VTI: 16.3 cm Ao mean P.3 mmHg (I,D): 1.5 cm2 Ao V2 VTI: 33.7 cm (V,D): 1.7 cm2 sev ratio: 0.48 indexed to BSA (cm^2/m^2): 0.70 MV E max joshua: 111.2 cm/sec TR max joshua: 310.5 cm/sec MV A max joshua: 1.9 cm/sec TR max P.6 mmHg MV E/A: 58.0 PA V2 max: 72.2 cm/sec Med Peak E' Joshua: 3.5 cm/sec PA V2 mean: 52.4 cm/sec E/E' med: 31.9 PA mean P.2 mmHg Lat Peak E' Joshua: 4.5 cm/sec PA pr(Accel): 51.6 mmHg E/E' lat: 24.9 E/e' average: 28.4 MV dec time: 0.22 sec MR PISA: 4.3 cm2 SV(LVOT): 50.5 ml MR flow rate: 184.1 cm3/sec MR PISA radius: 0.83 cm Reading Physician:07:14 PM
== END ==
PROVIDERS: Family Provider Internal Medicine; PCP Internal Medicine; Referring Provider Internal Medicine Cardiovascular Disease; Visit Provider Internal Medicine Cardiovascular Disease
DX: I08.1 Rheumatic disorders of both mitral and tricuspid valves (principal); I50.22 Chronic systolic (congestive) heart failure; Z95.0 Presence of cardiac pacemaker
CPT/HCPCS: 93306

== ENCOUNTER → 2022-01-28 14:03 | Outpatient (CLI) | payer MEDICARE, OTHER, SELFPAY ==
[2018-11-18 20:34] VITALS: BMI 28.7
--- NOTE | 2022-01-29 11:58 | P.PCN_ITS ---
Cardiac Stress Test Report Referral & Results Indication: CAD RISK STRATIFICATION Rest ECG: A SENSED V PACED Procedure Note: SOL NM STRESS TEST Impression: AFTER SOL INJ, PATIENT HAD MINIMAL DYSPNEA; NO CHEST DISCOMFORT; BASELIKE ECG A SENSED V PACED RHYTHM; NO SIGNIFICANT ST CHANGES AFTER SOL INJ COMPARED TO BASELINE; NO AMINOPH NEEDED. MIBI SCAN PENDING. 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 Please note: Actual ECG tracings can be found in the PACS system.
--- NOTE | 2022-01-29 18:10 | DI.NM.S_ITS ---
DATE OF SERVICE: PROCEDURE: Pharmacological perfusion study. DATE OF STUDY: 01/28/2022 INDICATIONS: Shortness of breath, congestive heart failure, severe ischemic cardiomyopathy, LV EF about 30-35 percent on 2D echo, previous inferior wall myc. RADIOPHARMACEUTICAL: 25.4 millicurie technetium-99m Myoview IV was injected at stress and 26.0 millicurie technetium-99m Myoview IV was injected at rest. CARDIAC STRESS: The patient underwent IV Lexiscan perfusion study under the supervision of an attending staff as per standard protocol. The patient remained hemodynamically stable. Baseline blood pressure 120/74. Heart rate 78. Baseline rhythm was likely a sensed and ventricular paced rhythm. During stress, no new rhythm change. No new significant arrhythmias. The patient had minimal dyspnea. No chest discomfort. RAW DATA: There is increased subdiaphragmatic activity. GATED STUDY: Resting LV ejection fraction reported to be 47 and stress 57 percent, which does not appear to be right. There was inferior wall hypokinesis. Resting end-diastolic volume 182 mL suggestive of dilated LV. TID ratio 1.11, which is within normal limits. Lung/heart ratio 0.40, which is within normal limits. MYOCARDIAL PERFUSION SCAN: The stress supine and resting supine images were compared to each other. There are no stress prone images. There appears to be predominantly fixed, large size, severely decreased perfusion of inferior wall extending into the inferior apex, inferior septum as well as basal inferolateral wall without any significant reversible ischemia. CONCLUSION: This is an abnormal myocardial perfusion study consistent with large size infarction of inferior wall extending into the inferior apex, inferior septum as well as basal inferolateral wall without any significant reversible ischemic burden. Stress left ventricular ejection fraction is 57 percent and resting left ventricular ejection fraction 47 percent, which is a calculated ejection fraction and may not be right in view of large infarction in the inferior wall, inferior septum and basal inferolateral wall. Resting end- diastolic volume 182 mL which is dilated. No transient ischemic dilatation. RayRaul brower - RUKHSANA/casey/cuba doc#: [id number]/job#: [id number] dd: 01/29/2022 16:46:00 dt: 01/29/2022 18:02:00 DICTATING MD/COPIES TO: Rick Duncan MD COPIES MNE: SONIA;
== END ==
PROVIDERS: Family Provider Internal Medicine; PCP Internal Medicine; Referring Provider Internal Medicine Cardiovascular Disease; Visit Provider Internal Medicine Cardiovascular Disease
DX: R94.39 Abnormal result of other cardiovascular function study (principal); I50.22 Chronic systolic (congestive) heart failure; I25.5 Ischemic cardiomyopathy; R06.02 Shortness of breath
CPT/HCPCS: 78452; 93017; A9502; J2785

== ENCOUNTER → 2022-01-30 14:59 | Outpatient (CLI) | payer MEDICARE, OTHER, SELFPAY ==
[2018-11-18 20:34] VITALS: BMI 28.7
[2022-01-30 15:33] LABS: COVID19 -Nasal RAPID Negative (Negative)
== END ==
PROVIDERS: Family Provider Internal Medicine; PCP Internal Medicine; Referring Provider Internal Medicine; Visit Provider Internal Medicine
DX: Z20.822 Contact with and (suspected) exposure to COVID-19 (principal)
CPT/HCPCS: 87635; C9803

== ENCOUNTER → 2022-01-31 14:52 | Outpatient (CLI) | payer MEDICARE, OTHER, SELFPAY ==
[2018-11-18 20:34] VITALS: BMI 28.7
--- NOTE | 2022-02-06 10:36 | PM.PFT.1 ---
Pulmonary Function Test Referral & Results Date Patient Seen: 01/31/22 Requesting provider: Rick Duncan Results: The spirometry demonstrates an FVC of 2.27 L which is 56% of predicted. The FEV1 was measured at 1.23 L which is 43% of predicted. The FEV1/FVC ratio was 54 which is 76% of predicted. Following the administration of bronchodilator there was Na% improvement in FEV1 and a 33% improvement in FEF 25-75% Lung volumes show an SVC of 2.32 L which is 51% of predicted. The diffusing capacity was measured at 23.28 which is 69% of predicted. No hemoglobin value was provided, so no correction for potential anemia could be made, if appropriate. Interpretation: This study demonstrates mild to moderate obstructive lung disease based on reduction FEV1. FEV1/FVC ratio is relatively preserved but there is evidence of benefit following bronchodilator particularly small airway flows as above based on improvement in FEF 25-75% There is also moderate severe reduction in lung volumes suggesting moderate restrictive lung disease which may explain most of the abnormality in FEV1 above There is also a [id number] reduction diffusing capacity suggesting disease at the capillary alveolar level
== END ==
PROVIDERS: Family Provider Internal Medicine; PCP Internal Medicine; Referring Provider Internal Medicine Cardiovascular Disease; Visit Provider Internal Medicine Cardiovascular Disease
DX: J44.9 Chronic obstructive pulmonary disease, unspecified (principal); Z79.899 Other long term (current) drug therapy
CPT/HCPCS: 94060; 94726; 94729

== ENCOUNTER → 2022-02-22 13:02 | Outpatient (CLI) | payer MEDICARE, OTHER, SELFPAY ==
[2018-11-18 20:34] VITALS: BMI 28.7
[2022-02-22 14:48] LABS: BUN Creatinine Ratio 21.1 (6-22); Blood Urea Nitrogen 35 mg/dL (9-20); Calcium 8.6 mg/dL (8.4-10.2); Carbon Dioxide 30 mmol/L (22-32); Chloride 101 mmol/L (98-107); Estimated Glomerular Filt Rate 41 mL/min (>60); Glucose 225 mg/dL (80-110); HEMOLYSIS 49 (0-50); Potassium 5.2 mmol/L (3.4-5.1); Sodium 137 mmol/L (137-145)
== END ==
PROVIDERS: Family Provider Internal Medicine; PCP Internal Medicine; Referring Provider Nurse Practitioner Acute Care; Visit Provider Nurse Practitioner Acute Care
DX: I50.22 Chronic systolic (congestive) heart failure (principal)
CPT/HCPCS: 36415; 80048

== ENCOUNTER → 2022-03-13 14:22 | Outpatient (CLI) | payer MEDICARE, OTHER, SELFPAY ==
[2018-11-18 20:34] VITALS: BMI 28.7
[2022-03-13 15:07] LABS: HEMOLYSIS < 15 (0-50); Potassium 5.3 mmol/L (3.4-5.1)
[2022-03-13 15:08] LABS: BUN Creatinine Ratio 16.7 (6-22); Blood Urea Nitrogen 30 mg/dL (9-20); Calcium 8.8 mg/dL (8.4-10.2); Carbon Dioxide 30 mmol/L (22-32); Chloride 103 mmol/L (98-107); Estimated Glomerular Filt Rate 37 mL/min (>60); Glucose 329 mg/dL (80-110); Sodium 138 mmol/L (137-145)
== END ==
PROVIDERS: Family Provider Internal Medicine; PCP Internal Medicine; Referring Provider Nurse Practitioner Acute Care; Visit Provider Nurse Practitioner Acute Care
DX: E87.5 Hyperkalemia (principal)
CPT/HCPCS: 36415; 80048

== ENCOUNTER 2022-08-06 18:23 | Emergency (ER) | payer MEDICARE, OTHER, SELFPAY ==
[2018-11-18 20:34] VITALS: BMI 28.7
[2022-08-06 18:36] VITALS: BP 144/69; PULSE 76; RESP 16; TEMP 36.4; O2SAT 95; BMI 30.1
--- NOTE | 2022-08-06 22:00 | ED_ITS ---
HPI - Wound/Laceration General Chief Complaint: Wound/Laceration Stated Complaint: Right hand index finger infection Time Seen by Provider: 08/06/22 21:18 History of Present Illness HPI narrative: 81-year-old male former smoker with history of V-tach, AICD, anticoagulation presents with a chief complaint of a wound on the dorsum of his right index finger that was suffered 1 week ago. It has developed some surrounding redness and swelling and he was able to express some pus from it earlier today. He states that 7 days ago he was reaching for a saw blade as it fell off a table and he suffered a laceration. He is unsure when his last tetanus was. Denies any numbness, tingling or weakness. He has full range of motion of his finger and is able to make a fist. He denies systemic complaints such as fever, chills, nausea or vomiting. Related Data Home Medications Medication Instructions Recorded Confirmed lisinopril 40 mg tablet 40 mg PO QAM ##0 01/20/08 11/18/18 coenzyme Q10 100 mg capsule 100 mg PO DAILY ##0 07/15/12 11/18/18 (CoQ-10) rosuvastatin 10 mg tablet (Crestor) 10 mg PO QPM ##0 07/15/12 11/18/18 aspirin 81 mg tablet,delayed 81 mg OR QPM ##0 12/11/17 11/18/18 release apixaban 2.5 mg tablet 2.5 mg PO BID 11/18/18 11/18/18 docusate sodium 100 mg capsule 100 mg PO DAILY 11/18/18 11/18/18 glucosamine [id number] 1 tab PO BID 11/18/18 11/18/18 robert 1,500 mg-400 unit-100 mg tablet (Osteo Bi-Flex (5-Loxin)) insulin aspart U-100 100 unit/mL 40 - 50 units SUBCUT BID 11/18/18 11/18/18 subcutaneous solution insulin glargine 100 unit/mL 25 units SUBCUT BID 11/18/18 11/18/18 subcutaneous solution lisinopril 40 mg tablet 20 mg PO QPM 11/18/18 11/18/18 metoprolol succinate 100 mg 100 mg PO BID 11/18/18 11/18/18 tablet,extended release 24 hr Previous Rx's Medication Instructions Recorded furosemide 40 mg tablet (Lasix) 60 mg PO BID #10 tabs 11/15/18 amiodarone 150 mg/100 mL (1.5 See Rx Instructions .Route 11/19/18 mg/mL) in dextrose 5 % intravenous .COMPLEX #1,200 mL soln doxycycline hyclate 100 mg tablet 100 mg PO BID #14 tabs 08/06/22 Allergies Allergy/AdvReac Type Severity Reaction Status Date / Time amoxicillin Allergy Mild DIARRHEA Verified 03/28/21 12:24 naproxen Allergy Mild DIARRHEA Verified 03/28/21 12:24 Penicillins [PENICILLINS] Allergy Unknown Verified 03/28/21 12:24 Review of Systems Review of Systems Narrative: GENERAL: Denies chills, fatigue, malaise, fever, sweats. HEENT: Denies sinus pain, ear pain, sore throat, difficulty swallowing, dizziness. RESPIRATORY: Denies dyspnea, cough, wheezing, hemoptysis, sputum. CARDIOVASCULAR: Denies chest pain, palpitations, orthopnea, edema, GASTROINTESTINAL: Denies nausea, vomiting, abdominal pain, diarrhea, constipation, melena. : Denies dysuria, frequency, incontinence, hematuria, urinary retention. MUSCULOSKELETAL: See HPI SKIN: See HPI NEUROLOGIC: Denies weakness, headache, numbness, change in speech, confusion, seizures, incoordination. PSYCHIATRIC: No concerning psychosocial issues. 12 point review of systems is negative except for those stated above Patient History Medical History Atrial fibrillation Hyperlipidemia Hypertension Ischemic cardiomyopathy Myocardial infarction Obesity Obstructive sleep apnea of adult Primary insomnia Snoring Type 2 diabetes mellitus Surgical History History of cholecystectomy History of ERCP History of hernia repair History of left knee replacement History of partial knee replacement History of resection of 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 Mother Leukemia Social History household members: spouse Smoking Status: Former smoker alcohol intake: former Smoking Status: Former smoker alcohol intake frequency: holidays/special occasions only Substance Use Type: does not use Exam Narrative Exam Narrative: GEN: AOx3 and in mild distress EYES: Pupils are equal, round, and reactive to light and accommodation. Extraoccular muscles are intact bilaterally. There is no subconjunctival hemorrhage or exudate. CHEST: Lungs are clear to auscultation bilaterally and free of wheezes, rales, or rhonchi. Heart rate is regular rhythm, there are no murmurs, clicks, rubs, or gallops. There is no chest wall tenderness. ABD: Abdomen is soft and nontender. There is no guarding or rebound. Bowel sounds are normal in all 4 quadrants. There is no mass or organomegaly. EXT: Left index finger with a 1 cm old laceration on dorsum of right index finger proximal to PIP. There is surrounding erythema and some swelling, no fusiform involvement, patient able to make a fist, no active drainage to culture, no fluctuance. SKIN: Warm, pink, and dry. No erythema or rash Initial Vital Signs Initial Vital Signs: Vital Signs Temperature 97.5 F L 08/06/22 18:36 Pulse Rate 76 08/06/22 18:36 Respiratory Rate 16 08/06/22 18:36 Blood Pressure 144/69 H 08/06/22 18:36 Pulse Oximetry 95 08/06/22 18:36 Oxygen Delivery Method 08/06/22 18:36 Course Orders Ordered: Discontinued Medications Diphtheria/Tetanus/Acell Pertussis (Tet,Diph,Pertuss(Acell),Vac/Pf 0.5 Ml Syringe) 0.5 ml IM .ONCE ONE Stop: 08/06/22 22:07 Last Admin: 08/06/22 22:12 Dose: 0.5 ml Documented By: [facility] Doxycycline Hyclate (Doxycycline Hyclate 100 Mg Tablet) 100 mg PO NOW ONE Stop: 08/06/22 22:07 Last Admin: 08/06/22 22:14 Dose: 100 mg Documented By: [facility] Vital Signs Vital signs: Vital Signs - 8 hr 08/06/22 18:36 Temperature 97.5 F L Pulse Rate 76 Respiratory Rate 16 Blood Pressure 144/69 H Pulse Oximetry 95 Oxygen Delivery Method Room Air MDM - Wound/Laceration MDM Narrative Medical decision making narrative: 1-week-old infected wound with report of drainage at home. No indication for ongoing deep abscess, tenosynovitis, felon or other. Attempted to culture but no exudate to speak of. No systemic findings, patient started on antibiotics, tetanus updated, given return precautions and questions answered to his apparent satisfaction Discharge Plan Departure Patient Disposition: Home Clinical Impression: Infected wound Instructions: DI for Wound Infection Activity Restrictions/Additional Instructions: *You have been diagnosed with [wound infection right index finger. As we discussed there is no indication that the tendon was involved. Also, of note we have updated your tetanus today.] *What to do: *Please continue to take your regular medications as directed. [ x] New medication prescriptions sent to your pharmacy: [[facility] ] [ ] New medication written as a paper prescription [ ] No new medications given *Please follow up with your primary care provider in 2-3 days, call for an appointment. Let them know you were seen in the Emergency Department and that we ask that you be seen in follow up. We will electronically transmit a record of today's note if your PCP is in our system *Return to Emergency Department if you should have any new, worsening or concerning symptoms, such as [fever greater than 101 F, shaking chills, worsening pain, persistent vomiting or other bothersome symptoms] Prescriptions: New doxycycline hyclate 100 mg tablet 100 mg PO BID Qty: 14 0RF No Action lisinopril 40 mg Tablet 40 mg PO QAM Qty: 0 rosuvastatin [Crestor] 10 MG tablet 10 mg PO QPM Qty: 0 coenzyme Q10 [CoQ-10] 100 mg Capsule 100 mg PO DAILY Qty: 0 aspirin 81 MG tablet,delayed release (DR/EC) 81 mg OR QPM Qty: 0 furosemide [Lasix] 40 mg tablet 60 mg PO BID Qty: 10 0RF insulin glargine 100 unit/mL solution 25 units subcut BID metoprolol succinate 100 mg tablet extended release 24 hr 100 mg PO BID insulin aspart U-100 100 unit/mL solution 40 - 50 units subcut BID Label Comments: before meals docusate sodium 100 mg Capsule 100 mg PO DAILY lisinopril 40 mg Tablet 20 mg PO QPM [id number] [Osteo Bi-Flex (5-Loxin)] 1,500-400-100 mg-unit-mg Tablet 1 tab PO BID Label Comments: with a meal apixaban 2.5 mg tablet 2.5 mg PO BID amiodarone in dextrose 5 % 150 mg/100 mL (1.5 mg/mL) solution See Rx Instructions .ROUTE .COMPLEX Qty: 1200 0RF Rx Instructions: 0.5 mg/min intravenously Referrals: Klever Gresham MD [Primary Care Provider] - Visit Report Forms: Patient Portal/API
[2022-08-06] MEDS: TET,DIPH,PERTUSS(ACELL),VAC/PF 0.5 ML SYRINGE IM (22:12)
[2022-08-06] MEDS: DOXYCYCLINE HYCLATE 100 MG TABLET PO (22:14)
--- NOTE | 2022-08-06 22:20 | PC.NURSE ---
wound on pointer finger, small amount of yellow drainage, redness and warmth to surrounding tissue.
[2022-08-06 22:21] VITALS: BP 148/96; PULSE 88; RESP 16; O2SAT 99
== END 2022-08-06 22:22 | disposition home or self-care (01) ==
PROVIDERS: Emergency Provider Emergency Medicine; Family Provider Internal Medicine; PCP Internal Medicine
DX: L08.9 Local infection of the skin and subcutaneous tissue, unspecified (principal); Z23 Encounter for immunization
CPT/HCPCS: 90471; 99283; 90715

== ENCOUNTER → 2022-08-08 15:39 | Outpatient (CLI) | payer MEDICARE, OTHER, SELFPAY ==
[2018-11-18 20:34] VITALS: BMI 28.7
[2022-08-08 18:45] LABS: BUN Creatinine Ratio 19.6 (6-22); Blood Urea Nitrogen 35 mg/dL (9-20); Calcium 9.1 mg/dL (8.4-10.2); Carbon Dioxide 20 mmol/L (22-32); Chloride 103 mmol/L (98-107); Estimated Glomerular Filt Rate 37 mL/min (>60); Glucose 149 mg/dL (80-110); HEMOLYSIS 44 (0-50); Sodium 138 mmol/L (137-145)
[2022-08-08 19:03] LABS: Potassium 5.4 mmol/L (3.4-5.1)
== END ==
PROVIDERS: Family Provider Internal Medicine; PCP Internal Medicine; Referring Provider Internal Medicine Cardiovascular Disease; Visit Provider Internal Medicine Cardiovascular Disease
DX: I50.22 Chronic systolic (congestive) heart failure (principal)
CPT/HCPCS: 36415; 80048

== ENCOUNTER → 2022-08-12 13:26 | Outpatient (CLI) | payer MEDICARE, OTHER, SELFPAY ==
[2018-11-18 20:34] VITALS: BMI 28.7
[2022-08-12 14:15] LABS: BUN Creatinine Ratio 21.2 (6-22); Blood Urea Nitrogen 39 mg/dL (9-20); Calcium 8.7 mg/dL (8.4-10.2); Carbon Dioxide 28 mmol/L (22-32); Chloride 102 mmol/L (98-107); Estimated Glomerular Filt Rate 36 mL/min (>60); Glucose 223 mg/dL (80-110); HEMOLYSIS 27 (0-50); Sodium 138 mmol/L (137-145)
== END ==
PROVIDERS: Family Provider Internal Medicine; PCP Internal Medicine; Referring Provider Internal Medicine Cardiovascular Disease; Visit Provider Internal Medicine Cardiovascular Disease
DX: I47.20 Ventricular tachycardia, unspecified (principal)
CPT/HCPCS: 36415; 80048

== ENCOUNTER 2022-09-09 18:24 | Emergency (ER) | payer MEDICARE, OTHER, SELFPAY ==
[2018-11-18 20:34] VITALS: BMI 28.7
[2022-09-09 18:30] VITALS: PULSE 84; O2SAT 97
--- NOTE | 2022-09-09 18:31 | DI.RAD.S_ITS ---
PROCEDURE: XR CHEST 1V INDICATIONS: chest pain TECHNIQUE: One view of the chest was acquired. COMPARISON: [facility], CR, XR CHEST 1V, 06/03/2021, 11:53. FINDINGS: Surgical changes and devices: There is a cardiac pacemaker. Lungs and pleura: Lungs are clear. No pleural effusions or pneumothorax. Mediastinum: Mediastinal contours appear normal. Heart size is mildly increased. Bones and chest wall: No suspicious bony lesions. Overlying soft tissues appear unremarkable. IMPRESSION: Mild cardiomegaly. Dictated by: Evelia Burr M.D. on 09/09/2022 at 19:46 Approved by: Evelia Burr M.D. on 09/09/2022 at 19:46
[2022-09-09 18:37] VITALS: BP 135/72; PULSE 81; RESP 17; O2SAT 98
[2022-09-09] MEDS: SODIUM CHLORIDE 0.9% 1,000 ML 150 ML IV (18:47)
[2022-09-09 18:51] LABS: Add Manual Diff / Slide Review NO; Basophils Absolute Auto 100 /uL (0-100); Basophils Percent Auto 0.9 % (0-2); Eosinophils Absolute Auto 400 /uL (0-450); Eosinophils Percent Auto 2.7 % (2-4); Hematocrit 44.1 % (41-53); Hemoglobin 14.4 g/dL (13.5-17.5); Lymphocytes Absolute Auto 3000 /uL (1100-4500); Lymphocytes Percent Auto 22.9 % (25-40); Mean Corpuscular HGB Conc 32.8 % (30-36); Mean Corpuscular Hemoglobin 31.2 PG (26-34); Mean Corpuscular Volume 95.2 fL (80-100); Monocytes Absolute Auto 1700 /uL (0-900); Monocytes Percent Auto 12.8 % (3-14); Neutrophils Absolute Auto 7900 /uL (1500-7000); Neutrophils Percent Auto 60.7 % (50-75); Platelet Count 231 X10^3/uL (150-400); Red Blood Cell Count 4.63 X10^6/uL (4.5-5.9); Red Cell Distribution Width 13.2 % (11.6-14.8)
[2022-09-09 18:53] VITALS: BP 135/72; PULSE 80; RESP 18; TEMP 36.6; O2SAT 98; BMI 29.2
[2022-09-09 19:00] VITALS: PULSE 76; RESP 20; O2SAT 97
[2022-09-09 19:00] LABS: Alanine Aminotransferase 20 IU/L (<50); Albumin Globulin Ratio 1.1 (1.0-2.8); Alkaline Phosphatase 81 U/L (38-126); Aspartate Aminotransferase 23 IU/L (17-59); BUN Creatinine Ratio 17.3 (6-22); Bilirubin Total 0.4 mg/dL (0.2-1.3); Blood Urea Nitrogen 43 mg/dL (9-20); Carbon Dioxide 27 mmol/L (22-32); Chloride 98 mmol/L (98-107); Creatine Kinase 84 U/L (55-170); Estimated Glomerular Filt Rate 25 mL/min (>60); Globulin 3.7 g/dL (1.7-4.1); Glucose 282 mg/dL (80-110); HEMOLYSIS 16 (0-50); Lipase 27 U/L (23-300); Potassium 4.6 mmol/L (3.4-5.1); Sodium 136 mmol/L (137-145); Total Protein 7.7 g/dL (6.3-8.2)
[2022-09-09 19:01] VITALS: BP 122/57; PULSE 79; RESP 17; O2SAT 96
--- NOTE | 2022-09-09 19:11 | ED_ITS ---
HPI - Arrhythmia/Palpitations General Chief Complaint: Arrhythmia/Palpitations Stated Complaint: Defibulator shock Time Seen by Provider: 09/09/22 18:30 Source: family and EMS Mode of arrival: EMS History of Present Illness HPI narrative: Patient is an 82-year-old male history of coronary artery disease with stent placement, ischemic cardiomyopathy with AICD placement, stage 3 kidney disease, type 2 diabetes, atrial fibrillation presenting today with difficulty alert all discharge. He says he was eating his dinner when all of a sudden he was shocked. He said he was having a normal day he has not been feeling weak or tired. He denies any shortness of breath. He is feeling better now. He has no abdominal pain nausea or vomiting. Apparently his amiodarone has been stopped his over the last couple of weeks. Related Data Home Medications Medication Instructions Recorded Confirmed lisinopril 40 mg tablet 40 mg PO QAM ##0 01/20/08 11/18/18 coenzyme Q10 100 mg capsule 100 mg PO DAILY ##0 07/15/12 11/18/18 (CoQ-10) rosuvastatin 10 mg tablet (Crestor) 10 mg PO QPM ##0 07/15/12 11/18/18 aspirin 81 mg tablet,delayed 81 mg OR QPM ##0 12/11/17 11/18/18 release apixaban 2.5 mg tablet 2.5 mg PO BID 11/18/18 11/18/18 docusate sodium 100 mg capsule 100 mg PO DAILY 11/18/18 11/18/18 glucosamine [id number] 1 tab PO BID 11/18/18 11/18/18 robert 1,500 mg-400 unit-100 mg tablet (Osteo Bi-Flex (5-Loxin)) insulin aspart U-100 100 unit/mL 40 - 50 units SUBCUT BID 11/18/18 11/18/18 subcutaneous solution insulin glargine 100 unit/mL 25 units SUBCUT BID 11/18/18 11/18/18 subcutaneous solution lisinopril 40 mg tablet 20 mg PO QPM 11/18/18 11/18/18 metoprolol succinate 100 mg 100 mg PO BID 11/18/18 11/18/18 tablet,extended release 24 hr Previous Rx's Medication Instructions Recorded furosemide 40 mg tablet (Lasix) 60 mg PO BID #10 tabs 11/15/18 amiodarone 150 mg/100 mL (1.5 See Rx Instructions .Route 11/19/18 mg/mL) in dextrose 5 % intravenous .COMPLEX #1,200 mL soln doxycycline hyclate 100 mg tablet 100 mg PO BID #14 tabs 08/06/22 Allergies Allergy/AdvReac Type Severity Reaction Status Date / Time amoxicillin Allergy Mild DIARRHEA Verified 03/28/21 12:24 naproxen Allergy Mild DIARRHEA Verified 03/28/21 12:24 Penicillins [PENICILLINS] Allergy Unknown Verified 03/28/21 12:24 Review of Systems Review of Systems Narrative: GENERAL: Denies chills, fatigue, malaise, fever, sweats, travel HEENT: Denies sinus pain, ear pain, sore throat, difficulty swallowing, neck pain RESPIRATORY: Denies dyspnea, cough, wheezing, hemoptysis, sputum. CARDIOVASCULAR: See HPI GASTROINTESTINAL: Denies nausea, vomiting, abdominal pain, diarrhea, constipation, melena. : Denies dysuria, frequency, incontinence, hematuria, urinary retention, flank pain. MUSCULOSKELETAL: Denies weakness, joint pain, or bony pain SKIN: No rash, no erythema, no pruritus NEUROLOGIC: Denies weakness, dizziness, headache, numbness, change in speech, confusion PSYCHIATRIC: No concerning psychosocial issues. 12 point review of systems is negative except for those stated above and HPI Patient History Medical History (Updated 09/09/22 @ 19:31 by Amparo Milan DO) Atrial fibrillation Hyperlipidemia Hypertension Ischemic cardiomyopathy Myocardial infarction Obesity Obstructive sleep apnea of adult Primary insomnia Snoring Type 2 diabetes mellitus Surgical History History of cholecystectomy History of ERCP History of hernia repair History of left knee replacement History of partial knee replacement History of resection of 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 Mother Leukemia Social History household members: spouse Smoking Status: Former smoker alcohol intake: former Smoking Status: Former smoker alcohol intake frequency: holidays/special occasions only Substance Use Type: does not use Exam Initial Vital Signs Initial Vital Signs: Vital Signs Pulse Rate 84 09/09/22 18:30 Pulse Oximetry 97 09/09/22 18:30 GENERAL: Alert pleasant 82-year-old male HEENT: Head atraumatic,EOMI, pupils reactive, face symmetric, [moist] mucous membranes CARDIOVASCULAR: Regular rate and rhythm without murmurs, rubs or gallops. RESPIRATORY: Breath sounds equal bilaterally, no wheezes rales or rhonchi. ABDOMEN: Soft, nontender. Normoactive bowel sounds all 4 quadrants. No guarding or rebound. EXTREMITIES: Normal range of motion, no clubbing or edema. Neurovascularly intact NEUROLOGICAL: Alert and oriented x4.Normal gait and speech. SKIN: Warm, dry, no laceration, no petechiae, no rashes or lesions. Course Orders Ordered: Discontinued Medications Sodium Chloride (Normal Saline 0.9%) 1,000 mls @ 150 mls/hr IV CONT STEPHANI Last Admin: 09/09/22 18:47 Dose: 150 mls/hr Documented By: PRESTON Vital Signs Vital signs: Vital Signs - 8 hr 09/09/22 18:53 09/09/22 18:30 09/09/22 18:37 Temperature 97.8 F Pulse Rate 80 84 Respiratory Rate 18 Blood Pressure 135/72 135/72 Pulse Oximetry 98 97 Oxygen Delivery Method Room Air 09/09/22 18:37 09/09/22 19:00 09/09/22 19:01 Temperature Pulse Rate 81 76 79 Respiratory Rate 17 20 17 Blood Pressure Pulse Oximetry 98 97 96 Oxygen Delivery Method 09/09/22 19:01 Temperature Pulse Rate Respiratory Rate Blood Pressure 122/57 L Pulse Oximetry Oxygen Delivery Method MDM - Arrhythmia/Palpitations Lab Data Result diagrams: 09/09/22 18:33 09/09/22 18:33 Labs: Lab Results 09/09/22 09/09/22 09/09/22 Range/Units 18:33 18:33 18:36 WBC 13.0 H (4.5-11.0) X10^3/uL RBC 4.63 (4.5-5.9) X10^6/uL Hgb 14.4 (13.5-17.5) g/dL Hct 44.1 (41-53) % MCV 95.2 (80-100) fL MCH 31.2 (26-34) PG MCHC 32.8 (30-36) % RDW 13.2 (11.6-14.8) % Plt Count 231 (150-400) X10^3/uL Neut % (Auto) 60.7 (50-75) % Lymph % (Auto) 22.9 L (25-40) % Duchesne % (Auto) 12.8 (3-14) % Eos % (Auto) 2.7 (2-4) % Baso % (Auto) 0.9 (0-2) % Neut # (Auto) 7900 H (4323-1046) /uL Lymph # (Auto) 3000 (4681-3394) /uL Duchesne # (Auto) 1700 H (0-900) /uL Eos # (Auto) 400 (0-450) /uL Baso # (Auto) 100 (0-100) /uL Sodium 136 L (137-145) mmol/L Potassium 4.6 (3.4-5.1) mmol/L Chloride 98 (98-107) mmol/L Carbon Dioxide 27 (22-32) mmol/L BUN 43 H (9-20) mg/dL Creatinine 2.48 H (0.66-1.25) mg/dL Estimated GFR 25 L (>60) mL/min BUN/Creatinine Ratio 17.3 (6-22) Glucose 282 H (80-110) mg/dL Calcium 9.0 (8.4-10.2) mg/dL Total Bilirubin 0.4 (0.2-1.3) mg/dL AST 23 (17-59) IU/L ALT 20 (<50) IU/L Alkaline Phosphatase 81 (38-126) U/L Total Creatine Kinase 84 (55-170) U/L CK-MB (CK-2) TNP CK-MB (CK-2) Rel Index TNP Troponin I 0.019 (0.01-0.034) ng/mL Total Protein 7.7 (6.3-8.2) g/dL Albumin 4.0 (3.5-5.0) g/dL Globulin 3.7 (1.7-4.1) g/dL Albumin/Globulin Ratio 1.1 (1.0-2.8) Lipase 27 (23-300) U/L SARS-CoV-2 (PCR) Negative (Negative) Imaging Data Chest x-ray: Radiologist's Impresson: Raul Ray MR#: [id number] : 1940 Acct:[id number] Age/Sex: 82 / M Date of Service: 09/09/22 Loc: ED Accession Number: [id number] ?? Procedure: XR chest 1V Ordering Provider: Amparo Milan D.O. PROCEDURE:? XR CHEST 1V ? INDICATIONS:? chest pain ? TECHNIQUE:? One view of the chest was acquired.? ? COMPARISON:? [facility], , XR CHEST 1V, 06/03/2021, 11:53. ? FINDINGS:? ? Surgical changes and devices:? There is a cardiac pacemaker.? ? Lungs and pleura:? Lungs are clear.? No pleural effusions or pneumothorax.? ? Mediastinum:? Mediastinal contours appear normal.? Heart size is mildly increase d.? ? Bones and chest wall:? No suspicious bony lesions.? Overlying soft tissues appear unremarkable.? ? IMPRESSION:? Mild cardiomegaly. ? ? Dictated by: Evelia Burr M.D. on 09/09/2022 at 19:46 ? ? ECG Data Interpretation: Paced rhythm rate 83 AK interval 144 QRS 152 QTC 498 similar to previous EKG MDM Narrative Medical decision making narrative: Patient's vitals are stable overall feeling better. Pacemaker was interrogated appears that he was in SVT throughout the day atrial flutter 2-1 block he was shocked once back to normal sinus rhythm. 1929-Dr. Duncan cardiology consulted states increase metoprolol to 150 mg in the morning and 100 mg at night Discharge Plan Departure Patient Disposition: Home Clinical Impression: Atrial fibrillation with rapid ventricular response Instructions: DI for Atrial Fibrillation Activity Restrictions/Additional Instructions: *You have been diagnosed with atrial flutter *What to do: Your to fibrillary went off today because her heart rate was too fast. I have spoken with Cardiology and will make medication changes. *Continue to take medications as directed Metoprolol 150 mg in the morning, 100 mg at night *Follow up with your primary care provider in 2-3 days or call [phone] With cardiology, call the office tomorrow to schedule an appointment *Return to ER if you should have recurrent shock, chest pain palpitations dizziness lightheadedness or any new, worsening or concerning symptoms Prescriptions: No Action lisinopril 40 mg Tablet 40 mg PO QAM Qty: 0 rosuvastatin [Crestor] 10 MG tablet 10 mg PO QPM Qty: 0 coenzyme Q10 [CoQ-10] 100 mg Capsule 100 mg PO DAILY Qty: 0 aspirin 81 MG tablet,delayed release (DR/EC) 81 mg OR QPM Qty: 0 furosemide [Lasix] 40 mg tablet 60 mg PO BID Qty: 10 0RF insulin glargine 100 unit/mL solution 25 units subcut BID metoprolol succinate 100 mg tablet extended release 24 hr 100 mg PO BID insulin aspart U-100 100 unit/mL solution 40 - 50 units subcut BID Label Comments: before meals docusate sodium 100 mg Capsule 100 mg PO DAILY lisinopril 40 mg Tablet 20 mg PO QPM [id number] [Osteo Bi-Flex (5-Loxin)] 1,500-400-100 mg-unit-mg Tablet 1 tab PO BID Label Comments: with a meal apixaban 2.5 mg tablet 2.5 mg PO BID amiodarone in dextrose 5 % 150 mg/100 mL (1.5 mg/mL) solution See Rx Instructions .ROUTE .COMPLEX Qty: 1200 0RF Rx Instructions: 0.5 mg/min intravenously doxycycline hyclate 100 mg tablet 100 mg PO BID Qty: 14 0RF Referrals: Klever Gresham MD [Primary Care Provider] - Visit Report Forms: Patient Portal/API
[2022-09-09 19:12] LABS: Troponin I 0.019 ng/mL (0.01-0.034)
[2022-09-09 19:48] VITALS: BP 135/87; PULSE 77; RESP 22; O2SAT 97
[2022-09-09 20:26] LABS: COVID19 -Nasal RAPID Negative (Negative)
== END 2022-09-09 19:48 | disposition home or self-care (01) ==
PROVIDERS: Emergency Provider Emergency Medicine; Family Provider Internal Medicine; PCP Internal Medicine
DX: I48.20 Chronic atrial fibrillation, unspecified (principal); Z79.01 Long term (current) use of anticoagulants; Z95.0 Presence of cardiac pacemaker; R07.9 Chest pain, unspecified; I25.10 Atherosclerotic heart disease of native coronary artery without angina pectoris; Z20.822 Contact with and (suspected) exposure to COVID-19
CPT/HCPCS: 36415; 71045; 80053; 82550; 83690; 84484; 85025; 87635; 93005; 99284; C9803

== ENCOUNTER 2022-09-18 17:26 | Inpatient (IN) | payer MEDICARE, OTHER, SELFPAY ==
[2018-11-18 20:34] VITALS: BMI 28.7
--- NOTE | 2022-09-15 17:49 | DI.CT.S_ITS ---
TECHNIQUE: After the administration of intravenous contrast, 2 mm thick sections acquired from the pulmonary apices to the posterior costophrenic angles. 3-dimensional maximum intensity projection (MIP) coronal and sagittal reformats were then acquired through the thorax. For radiation dose reduction, the following was used: automated exposure control, adjustment of mA and/or kV according to patient size. COMPARISON: None. FINDINGS: Image quality: Excellent. Pulmonary arteries: Pulmonary arteries are normal in size, and demonstrate no intraluminal filling defects to suggest central pulmonary embolism. Lungs and pleura: Emphysematous changes noted without focal infiltrate. Calcified granulomas noted on the right Mediastinum: Heart size is enlarged, without pericardial effusion. No mediastinal or hilar adenopathy. Thoracic aorta is normal in caliber and enhancement. Esophagus is normal in caliber, without hiatal hernia. Bones and chest wall: No suspicious bony lesions. Ribs and thoracic spine appear intact throughout. Thyroid gland unremarkable. No axillary or supraclavicular adenopathy. Biventricular cardiac pacemaker/defibrillator in place. 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 : CORRINA WAGNER CC: MODALITY: CT PATIENT TYPE: ER CONTRAST MEDIA: 85 cc isovue 300 STATION ID: [id number] FLUORO TIME: Abdomen: Visualized upper abdominal solid organs appear normal in the early arterial phase of enhancement. IMPRESSION: 1. No evidence of pulmonary embolism, aortic dissection or aneurysm. 2. Cardiomegaly and biventricular left-sided pacemaker/defibrillator. 3. Pulmonary emphysema without focal infiltrate, pneumothorax pleural effusion Approved by: Emory Ford M.D. on 09/18/2022 at 17:47
[2022-09-18] VITALS (11 sets, daily range): BP systolic 123–147; BP diastolic 59–74; PULSE 70–94; RESP 18–36; TEMP 36.2–36.7; O2SAT 87–97; BMI 30.1; BMI 31.1
--- NOTE | 2022-09-18 17:55 | DI.RAD.S_ITS ---
PROCEDURE: XR CHEST 1V INDICATIONS: chest pain TECHNIQUE: One view of the chest was acquired. COMPARISON: [facility], CR, XR CHEST 1V, 09/09/2022, 18:59. FINDINGS: Surgical changes and devices: None. Lungs and pleura: Left basilar atelectasis and infiltrate blunting the left costophrenic angle. Right basilar atelectasis and infiltrate. Right pleural space clear. Mediastinum: Heart size enlarged. Biventricular left-sided pacemaker/defibrillator in place. Bones and chest wall: No suspicious bony lesions. Overlying soft tissues appear unremarkable. IMPRESSION: 1. Cardiomegaly without vascular congestion. 2. Bibasilar atelectasis and or infiltrate with small left pleural effusion Approved by: Emory Ford M.D. on 09/18/2022 at 17:48
--- NOTE | 2022-09-18 18:04 | ED_ITS ---
HPI - Chest Pain General Chief Complaint: Chest Pain Stated Complaint: defib went off x 2 Time Seen by Provider: 09/18/22 17:53 Source: patient and EMS Mode of arrival: EMS Limitations: no limitations History of Present Illness HPI narrative: Patient is a 82-year-old male history of insulin-dependent diabetes, hype rtension, atrial fibrillation, ischemic cardiomyopathy with AICD placement, stage 3 kidney disease presenting today with diff it for later going off twice. He was actually seen and evaluated here his last week for the same. Metoprolol was increased 150 mg in the morning and 100 at night. He has not yet followed up with Cardiology with actually called him today he said he had not had any shocks and then he was shocked twice. No shortness of breath no fever chills. He has not had any illness. Related Data Home Medications Medication Instructions Recorded Confirmed coenzyme Q10 100 mg capsule 100 mg PO DAILY ##0 07/15/12 09/18/22 (CoQ-10) rosuvastatin 10 mg tablet (Crestor) 10 mg PO QPM ##0 07/15/12 09/18/22 aspirin 81 mg tablet,delayed 81 mg OR QPM ##0 12/11/17 09/18/22 release apixaban 2.5 mg tablet 2.5 mg PO BID 11/18/18 09/18/22 glucosamine [id number] 1 tab PO BID 11/18/18 09/18/22 robert 1,500 mg-400 unit-100 mg tablet (Osteo Bi-Flex (5-Loxin)) insulin aspart U-100 100 unit/mL 40 - 50 units SUBCUT BID 11/18/18 09/18/22 subcutaneous solution insulin glargine 100 unit/mL 25 units SUBCUT BID 11/18/18 09/18/22 subcutaneous solution lisinopril 40 mg tablet 20 mg PO QPM 11/18/18 09/18/22 metoprolol succinate 100 mg 100 mg PO BID 11/18/18 09/18/22 tablet,extended release 24 hr finasteride 5 mg tablet 5 mg PO DAILY 09/18/22 09/18/22 sacubitril 49 mg-valsartan 51 mg See Rx Instructions .Route .COMPLEX 09/18/22 09/18/22 tablet (Entresto) tamsulosin 0.4 mg capsule 0.4 mg PO DAILY 09/18/22 09/18/22 Previous Rx's Medication Instructions Recorded furosemide 40 mg tablet (Lasix) 60 mg PO BID #10 tabs 11/15/18 Allergies Allergy/AdvReac Type Severity Reaction Status Date / Time amoxicillin Allergy Mild DIARRHEA Verified 03/28/21 12:24 naproxen Allergy Mild DIARRHEA Verified 03/28/21 12:24 Penicillins [PENICILLINS] Allergy Unknown Verified 03/28/21 12:24 Review of Systems Review of Systems Narrative: GENERAL: Denies chills, fatigue, malaise, fever, sweats, travel HEENT: Denies sinus pain, ear pain, sore throat, difficulty swallowing, neck pain RESPIRATORY: Denies dyspnea, cough, wheezing, hemoptysis, sputum. CARDIOVASCULAR: See HPI GASTROINTESTINAL: Denies nausea, vomiting, abdominal pain, diarrhea, constipation, melena. : Denies dysuria, frequency, incontinence, hematuria, urinary retention, flank pain. MUSCULOSKELETAL: Denies weakness, joint pain, or bony pain SKIN: No rash, no erythema, no pruritus NEUROLOGIC: Denies weakness, dizziness, headache, numbness, change in speech, confusion PSYCHIATRIC: No concerning psychosocial issues. 12 point review of systems is negative except for those stated above and HPI Patient History Medical History (Updated 09/18/22 @ 20:13 by Amparo Milan DO) Atrial fibrillation Hyperlipidemia Hypertension Ischemic cardiomyopathy Myocardial infarction Obesity Obstructive sleep apnea of adult Primary insomnia Snoring Type 2 diabetes mellitus Surgical History History of cholecystectomy History of ERCP History of hernia repair History of left knee replacement History of partial knee replacement History of resection of 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 Mother Leukemia Social History household members: spouse Smoking Status: Former smoker alcohol intake: former Smoking Status: Former smoker alcohol intake frequency: holidays/special occasions only Substance Use Type: does not use Exam Initial Vital Signs Initial Vital Signs: Vital Signs Pulse Rate 94 H 09/18/22 17:33 Pulse Oximetry 96 09/18/22 17:33 GENERAL: Alert pleasant 82-year-old male and in no acute distress. HEENT: Head atraumatic,EOMI, pupils reactive, face symmetric, moist mucous membranes CARDIOVASCULAR: Regular rate and rhythm without murmurs, rubs or gallops. RESPIRATORY: Breath sounds equal bilaterally, no wheezes rales or rhonchi. ABDOMEN: Soft, nontender. Normoactive bowel sounds all 4 quadrants. No guarding or rebound. EXTREMITIES: Normal range of motion, no clubbing or edema. Neurovascularly intact NEUROLOGICAL: Alert and oriented x4.Normal gait and speech. SKIN: Warm, dry, no laceration, no petechiae, no rashes or lesions. Course Orders Ordered: ED Orders 09/18/22 18:37 Complete Blood Count AUTO DIFF Stat Comprehensive Metabolic Panel Stat Lipase Stat MAG [Magnesium] Stat NT-proBNP (BNP-Adult 18+) Stat Troponin & CK Cardiac Panel Stat Acetaminophen (Acetaminophen 325 Mg Tablet) 650 mg PO Q6H PRN PRN Reason: Fever/Mild Pain (1-3) Apixaban (Apixaban 5 Mg Tablet) 2.5 mg PO BID [facility] Last Admin: 09/18/22 23:15 Dose: 2.5 mg Documented By: Aspirin (Aspirin Ec 81 Mg Tablet) 81 mg PO QPM STEPHANI Atorvastatin Calcium (Atorvastatin 20 Mg Tablet) 20 mg PO QPM [facility] Dextrose (Dextrose 50 % In Water 25 Gm/50 Ml Syringe) 25 gm IV PRN PRN PRN Reason: Hypoglycemia Finasteride (Finasteride 5 Mg Tablet) 5 mg PO DAILY [facility] Furosemide (Furosemide 20 Mg/2 Ml Vial) 40 mg IV BID [facility] Insulin Glargine (Insulin Glargine 100 Unit/Ml 3ml Pen) 25 unit SUBCUT 2100 STEPHANI Last Admin: 09/18/22 23:38 Dose: Not Given Documented By: Insulin Human Lispro (Insulin Lispro 100 Unit/Ml 3ml Vial) 0 unit SUBCUT ACHS [facility]; Protocol Last Admin: 09/18/22 23:38 Dose: Not Given Documented By: Metoprolol Succinate (Metoprolol Er 50 Mg Tablet) 100 mg PO BID [facility] Naloxone HCl (Naloxone 0.4 Mg/Ml Vial) 0.2 mg IV Q2MIN PRN PRN Reason: Opiate Reversal Sotalol HCl (Sotalol 80 Mg Tablet) 80 mg PO BID [facility] Tamsulosin HCl (Tamsulosin 0.4 Mg Capsule) 0.4 mg PO DAILY STEPHANI Discontinued Medications Furosemide (Furosemide 40 Mg/4 Ml Vial) 40 mg IV NOW ONE Stop: 09/18/22 19:29 Last Admin: 09/18/22 19:59 Dose: 40 mg Documented By: ADITYA Sodium Chloride (Normal Saline 0.9%) 1,000 mls @ 150 mls/hr IV CONT STEPHANI Last Infusion: 09/18/22 19:35 Dose: 0 mls/hr Documented By: Admin: 09/18/22 19:19 Dose: 150 mls/hr Documented By: [facility] Insulin Human Lispro (Insulin Lispro 100 Unit/Ml 3ml Vial) 0 unit SUBCUT ACHS STEPHANI; Protocol Sotalol HCl (Sotalol 80 Mg Tablet) 80 mg PO NOW ONE Stop: 09/18/22 19:29 Last Admin: 09/18/22 21:23 Dose: 80 mg Documented By: LUTHER Vital Signs Vital signs: Vital Signs - 8 hr 09/18/22 19:17 09/18/22 19:30 Pulse Rate 76 75 Respiratory Rate 36 H 19 Pulse Oximetry 87 L 95 MDM - Chest Pain Lab Data Result diagrams: 09/18/22 18:37 09/18/22 18:37 Labs: Lab Results 09/18/22 09/18/22 09/18/22 Range/Units 18:37 18:37 18:37 WBC 12.7 H (4.5-11.0) X10^3/uL RBC 4.05 L (4.5-5.9) X10^6/uL Hgb 12.5 L (13.5-17.5) g/dL Hct 38.4 L (41-53) % MCV 94.8 (80-100) fL MCH 31.0 (26-34) PG MCHC 32.7 (30-36) % RDW 13.3 (11.6-14.8) % Plt Count 271 (150-400) X10^3/uL Neut % (Auto) 69.6 (50-75) % Lymph % (Auto) 15.5 L (25-40) % [place] % (Auto) 10.5 (3-14) % Eos % (Auto) 3.1 (2-4) % Baso % (Auto) 1.3 (0-2) % Neut # (Auto) 8800 H (4989-1156) /uL Lymph # (Auto) 2000 (9996-5189) /uL [place] # (Auto) 1300 H (0-900) /uL Eos # (Auto) 400 (0-450) /uL Baso # (Auto) 200 H (0-100) /uL Sodium 134 L (137-145) mmol/L Potassium 4.6 (3.4-5.1) mmol/L Chloride 96 L (98-107) mmol/L Carbon Dioxide 29 (22-32) mmol/L BUN 30 H (9-20) mg/dL Creatinine 1.73 H (0.66-1.25) mg/dL Estimated GFR 38 L (>60) mL/min BUN/Creatinine Ratio 17.3 (6-22) Glucose 317 H (80-110) mg/dL Hemoglobin A1c (4.0-6.0) % Lactate (0.7-2.1) mmol/L Calcium 8.2 L (8.4-10.2) mg/dL Magnesium 2.0 (1.6-2.3) mg/dL Total Bilirubin 0.4 (0.2-1.3) mg/dL AST 21 (17-59) IU/L ALT 18 (<50) IU/L Alkaline Phosphatase 68 (38-126) U/L Total Creatine Kinase 127 (55-170) U/L CK-MB (CK-2) 3.28 H (<2.37) ng/mL CK-MB (CK-2) Rel Index 2.6 (1.5-5.0) % Troponin I 0.020 (0.01-0.034) ng/mL NT-Pro-B Natriuret Pep 4350 H (<450) pg/mL Total Protein 6.6 (6.3-8.2) g/dL Albumin 3.4 L (3.5-5.0) g/dL Globulin 3.2 (1.7-4.1) g/dL Albumin/Globulin Ratio 1.1 (1.0-2.8) Lipase 28 (23-300) U/L Procalcitonin (<0.5) ng/mL TSH (0.47-4.68) uIU/mL Free T4 (0.78-2.19) ng/dL Ethyl Alcohol < 10 ( - 10) mg/dL 09/18/22 09/18/22 09/18/22 Range/Units 18:37 18:37 18:37 WBC (4.5-11.0) X10^3/uL RBC (4.5-5.9) X10^6/uL Hgb (13.5-17.5) g/dL Hct (41-53) % MCV (80-100) fL MCH (26-34) PG MCHC (30-36) % RDW (11.6-14.8) % Plt Count (150-400) X10^3/uL Neut % (Auto) (50-75) % Lymph % (Auto) (25-40) % [place] % (Auto) (3-14) % Eos % (Auto) (2-4) % Baso % (Auto) (0-2) % Neut # (Auto) (3139-4637) /uL Lymph # (Auto) (5848-3251) /uL [place] # (Auto) (0-900) /uL Eos # (Auto) (0-450) /uL Baso # (Auto) (0-100) /uL Sodium (137-145) mmol/L Potassium (3.4-5.1) mmol/L Chloride (98-107) mmol/L Carbon Dioxide (22-32) mmol/L BUN (9-20) mg/dL Creatinine (0.66-1.25) mg/dL Estimated GFR (>60) mL/min BUN/Creatinine Ratio (6-22) Glucose (80-110) mg/dL Hemoglobin A1c 9.9 H (4.0-6.0) % Lactate 1.7 (0.7-2.1) mmol/L Calcium (8.4-10.2) mg/dL Magnesium (1.6-2.3) mg/dL Total Bilirubin (0.2-1.3) mg/dL AST (17-59) IU/L ALT (<50) IU/L Alkaline Phosphatase (38-126) U/L Total Creatine Kinase (55-170) U/L CK-MB (CK-2) (<2.37) ng/mL CK-MB (CK-2) Rel Index (1.5-5.0) % Troponin I (0.01-0.034) ng/mL NT-Pro-B Natriuret Pep (<450) pg/mL Total Protein (6.3-8.2) g/dL Albumin (3.5-5.0) g/dL Globulin (1.7-4.1) g/dL Albumin/Globulin Ratio (1.0-2.8) Lipase (23-300) U/L Procalcitonin (<0.5) ng/mL TSH 1.64 (0.47-4.68) uIU/mL Free T4 1.23 (0.78-2.19) ng/dL Ethyl Alcohol ( - 10) mg/dL 09/18/22 Range/Units 18:37 WBC (4.5-11.0) X10^3/uL RBC (4.5-5.9) X10^6/uL Hgb (13.5-17.5) g/dL Hct (41-53) % MCV (80-100) fL MCH (26-34) PG MCHC (30-36) % RDW (11.6-14.8) % Plt Count (150-400) X10^3/uL Neut % (Auto) (50-75) % Lymph % (Auto) (25-40) % [place] % (Auto) (3-14) % Eos % (Auto) (2-4) % Baso % (Auto) (0-2) % Neut # (Auto) (1883-0987) /uL Lymph # (Auto) (3539-0725) /uL [place] # (Auto) (0-900) /uL Eos # (Auto) (0-450) /uL Baso # (Auto) (0-100) /uL Sodium (137-145) mmol/L Potassium (3.4-5.1) mmol/L Chloride (98-107) mmol/L Carbon Dioxide (22-32) mmol/L BUN (9-20) mg/dL Creatinine (0.66-1.25) mg/dL Estimated GFR (>60) mL/min BUN/Creatinine Ratio (6-22) Glucose (80-110) mg/dL Hemoglobin A1c (4.0-6.0) % Lactate (0.7-2.1) mmol/L Calcium (8.4-10.2) mg/dL Magnesium (1.6-2.3) mg/dL Total Bilirubin (0.2-1.3) mg/dL AST (17-59) IU/L ALT (<50) IU/L Alkaline Phosphatase (38-126) U/L Total Creatine Kinase (55-170) U/L CK-MB (CK-2) (<2.37) ng/mL CK-MB (CK-2) Rel Index (1.5-5.0) % Troponin I (0.01-0.034) ng/mL NT-Pro-B Natriuret Pep (<450) pg/mL Total Protein (6.3-8.2) g/dL Albumin (3.5-5.0) g/dL Globulin (1.7-4.1) g/dL Albumin/Globulin Ratio (1.0-2.8) Lipase (23-300) U/L Procalcitonin 0.09 (<0.5) ng/mL TSH (0.47-4.68) uIU/mL Free T4 (0.78-2.19) ng/dL Ethyl Alcohol ( - 10) mg/dL Imaging Data Chest x-ray: Radiologist's Impression: Signed Patient: Raul Ray MR#: [id number] : 1940 Acct:[id number] Age/Sex: 82 / M Date of Service: 09/18/22 Loc: ED Accession Number: [id number] ?? Procedure: XR chest 1V Ordering Provider: Amparo Milan D.O. PROCEDURE:? XR CHEST 1V ? INDICATIONS:? chest pain ? TECHNIQUE:? One view of the chest was acquired.? ? COMPARISON:? [facility], , XR CHEST 1V, 09/09/2022, 18:59. ? FINDINGS:? ? Surgical changes and devices:? None.? ? Lungs and pleura:? Left basilar atelectasis and infiltrate blunting the left costophrenic angle.? Right basilar atelectasis and infiltrate.? Right pleural space clear. ? Mediastinum:? Heart size enlarged.? Biventricular left-sided pacemaker/defibrillator in place. ? Bones and chest wall:? No suspicious bony lesions.? Overlying soft tissues appear unremarkable.? ? IMPRESSION:? ? 1. Cardiomegaly without vascular congestion. ? 2. Bibasilar atelectasis and or infiltrate with small left pleural effusion ? ? ? Approved by: Emory Ford M.D. on 09/18/2022 at 17:48? ECG Data Interpretation: Paced rhythm rate [address] changes similar to previous EKG MDM Narrative Medical decision making narrative: Pacemaker interrogated. He did have V-tach run of about 30 seconds he has had multiple episodes of AFib with RVR. He was cardioverted twice is today once at 30 joules and once at 36 joules. Blood work and electrolytes were overall reassuring. BNP is elevated today at 4500 he says he is more short of breath than normal but is currently not hypoxic. 1930 Dr. Lopez, cardiology updated on patient's symptoms test results states that he needs an anti rhythmic drug recommend sotalol if he is not previously t olerated amiodarone. Recommends 80 mg twice a day he needs to be monitored in the hospital for about 4-5 doses. Needs EKG every 2 doses to monitor QTC interval. It can cause bradycardia he has got a pacemaker should not have episodes of bradycardia. He can follow up with Cardiology after discharge. May be able to wean down the metoprolol as well. Agrees with Lasix if he needs it. The patient states he did not tolerate amiodarone he was on it for too long and started having amiodarone toxicity. Dr. Duncan is his normal travel registered nurse nicu Discharge Plan Departure Patient Disposition: Admitted As Inpatient Clinical Impression: Ventricular tachycardia Admit Date/Time: 09/18/22 19:47 Admit Provider: Josefa Maloney
[2022-09-18 18:48] LABS: Add Manual Diff / Slide Review NO; Basophils Absolute Auto 200 /uL (0-100); Basophils Percent Auto 1.3 % (0-2); Eosinophils Absolute Auto 400 /uL (0-450); Eosinophils Percent Auto 3.1 % (2-4); Hematocrit 38.4 % (41-53); Hemoglobin 12.5 g/dL (13.5-17.5); Lymphocytes Absolute Auto 2000 /uL (1100-4500); Lymphocytes Percent Auto 15.5 % (25-40); Mean Corpuscular HGB Conc 32.7 % (30-36); Mean Corpuscular Volume 94.8 fL (80-100); Monocytes Absolute Auto 1300 /uL (0-900); Monocytes Percent Auto 10.5 % (3-14); Neutrophils Absolute Auto 8800 /uL (1500-7000); Neutrophils Percent Auto 69.6 % (50-75); Platelet Count 271 X10^3/uL (150-400); Red Blood Cell Count 4.05 X10^6/uL (4.5-5.9); Red Cell Distribution Width 13.3 % (11.6-14.8); White Blood Cell Count 12.7 X10^3/uL (4.5-11.0)
[2022-09-18 19:01] LABS: Alanine Aminotransferase 18 IU/L (<50); Albumin 3.4 g/dL (3.5-5.0); Albumin Globulin Ratio 1.1 (1.0-2.8); Alkaline Phosphatase 68 U/L (38-126); Aspartate Aminotransferase 21 IU/L (17-59); BUN Creatinine Ratio 17.3 (6-22); Bilirubin Total 0.4 mg/dL (0.2-1.3); Blood Urea Nitrogen 30 mg/dL (9-20); Calcium 8.2 mg/dL (8.4-10.2); Carbon Dioxide 29 mmol/L (22-32); Chloride 96 mmol/L (98-107); Creatine Kinase 127 U/L (55-170); Estimated Glomerular Filt Rate 38 mL/min (>60); Globulin 3.2 g/dL (1.7-4.1); Glucose 317 mg/dL (80-110); HEMOLYSIS < 15 (0-50); Lipase 28 U/L (23-300); Potassium 4.6 mmol/L (3.4-5.1); Sodium 134 mmol/L (137-145); Total Protein 6.6 g/dL (6.3-8.2)
[2022-09-18 19:13] LABS: NT-proBNP (BNP-Adult 18+) 4350 pg/mL (<450)
[2022-09-18 19:16] LABS: CKMB % Relative Index 2.6 % (1.5-5.0); Creatine Kinase MB 3.28 ng/mL (<2.37)
[2022-09-18] MEDS: SODIUM CHLORIDE 0.9% 1,000 ML 150 ML IV (19:19)
[2022-09-18] MEDS: FUROSEMIDE 40 MG/4 ML VIAL IV (19:59)
[2022-09-18 20:47] LABS: COVID19 -Nasal RAPID Negative (Negative)
[2022-09-18] MEDS: SOTALOL 80 MG TABLET PO (21:23)
--- NOTE | 2022-09-18 21:45 | DI.ECHO.S_ITS ---
[facility] +---------+ : : [address] : : : : [id number] : : : : Phone: [phone]+ Echocardiogram Report + + :Name: FIOR RIOS Study Date: 09/19/2022 Height: 70 in : :[facility] ReadingLocation: Weight: 217 lb : : Gender: Male BSA: 2.2 m2 : :: 1940 Age: 82 yrs BP: 136/74 mmHg: :Reason For Study: AFIB WITH RVR, SVT CHF EXAC (AICD) : :Ordering Physician: TAMARA, : :TYE Performed By: Carolee López : :Referring: TYE MCDONALD : + + Interpretation Summary Left ventricular ejection fraction is estimated to be 35 +/- 5%. Mild to moderate global hypokinesis and severe hypokinesis to akinesis of the inferior and inferoposterior wall, particularly proximally, consistent with scar, but unchanged from the previous study. The right ventricle is mildly dilated. There is a pacemaker lead in the right ventricle. There is moderate to severe mitral regurgitation. There is mild tricuspid regurgitation. The right ventricular systolic pressure is estimated to be at least 55 mmHg based on an estimated right atrial pressure of 8 mm Hg. Procedure: A two-dimensional transthoracic echocardiogram with color flow and Doppler was performed. The study quality was technically adequate. Comparison is made with the echocardiogram of 01/18/2022. The patient has a paced rhythm. The heart rate ranged between 69-75 bpm during the study. Left Ventricle: The left ventricle is mild-moderately dilated. The estimated left ventricular end diastolic volume is 169 ml. There is normal left ventricular wall thickness. Left ventricular ejection fraction is estimated to be 35 +/- 5%. Mild to moderate global hypokinesis and severe hypokinesis to akinesis of the inferior and inferoposterior wall, particularly proximally, consistent with scar, but unchanged from the previous study. Right Ventricle: The right ventricle is mildly dilated. There is a pacemaker lead in the right ventricle. The right ventricular systolic function is normal. Atria: The left atrium is severely dilated. The right atrium is mildly dilated. There is a catheter/pacemaker lead seen in the right atrium. There is no Doppler evidence for an interatrial shunt. Mitral Valve: The mitral valve leaflets appear mildly thickened, but open well. There is moderate mitral annular calcification. There is moderate to severe mitral regurgitation. The mitral regurgitant jet is eccentrically directed. Aortic Valve: The aortic valve is trileaflet. The aortic valve is mildly calcified. There is no aortic valve stenosis. No aortic regurgitation is present. Tricuspid Valve: The tricuspid valve is normal in structure and function. There is mild tricuspid regurgitation. The right ventricular systolic pressure is estimated to be at least 55 mmHg based on an estimated right atrial pressure of 8 mm Hg. Pulmonic Valve: The pulmonic valve leaflets are thin and pliable; valve motion is normal. There is a trace or physiologic amount of pulmonic regurgitation. Great Vessels: The aortic root is normal size. The dimensions of the ascending aorta are normal. The IVC is dilated (diameter is greater than 2.1 cm) yet it collapses greater than 50% with a sniff. This suggests a right atrial pressure of 8 mm Hg. Pericardium/ Pleura There is no pericardial effusion. There is no pleural effusion. MMode/2D Measurements & Calculations LVIDd: 6.3 cm LVOT diam: 2.0 cm LVIDs: 5.1 cm Ao root diam: 3.1 cm FS: 20.3 % asc Aorta Diam: 2.9 cm EPSS: 1.3 cm IVSd: 0.75 cm LVPWd: 0.78 cm LV nunez. diameter/BSA (cm/m^2): 2.9 LV sys. diameter/BSA (cm/m^2): 2.3 LA A2 area: 37.1 cm2 RA long axis: 6.1 cm LA A4 area: 34.5 cm2 RA area: 24.9 cm2 LA length (vol): 7.4 cm RA vol: 86.5 ml LA vol: 147.3 ml RA : 40.0 ml/m2 LA vol index: 68.2 ml/m2 IVC diam: 2.4 cm RVD1 (basal): 4.2 cm RVD2 (mid): 3.1 cm TAPSE: 2.3 cm Doppler Measurements & Calculations Ao V2 max: 137.2 cm/sec LVOT Max Joshua: 72.0 cm/sec Ao V2 mean: 95.5 cm/sec LV V1 max P.1 mmHg Ao max P.5 mmHg LV V1 VTI: 13.3 cm Ao mean P.0 mmHg (I,D): 1.5 cm2 Ao V2 VTI: 26.9 cm (V,D): 1.6 cm2 sev ratio: 0.49 indexed to BSA (cm^2/m^2): 0.69 MV E max joshua: 105.3 cm/sec TR max joshua: 342.5 cm/sec MV A max joshua: 1.7 cm/sec TR max P.9 mmHg MV E/A: 60.3 PA V2 max: 97.2 cm/sec Med Peak E' Joshua: 5.6 cm/sec PA V2 mean: 64.0 cm/sec E/E' med: 18.8 PA mean P.9 mmHg Lat Peak E' Joshua: 6.3 cm/sec PA pr(Accel): 41.3 mmHg E/E' lat: 16.6 E/e' average: 17.7 MV dec time: 0.24 sec SV(LVOT): 39.9 ml Reading Physician:11:29 AM
[2022-09-18 22:26] LABS: Ethanol (ETOH) < 10 mg/dL
[2022-09-18 22:28] LABS: Lactate (Lactic Acid) 1.7 mmol/L (0.7-2.1)
[2022-09-18 22:44] LABS: Procalcitonin 0.09 ng/mL (<0.5)
[2022-09-18 22:46] LABS: Hemoglobin A1C% w Est Avg Glu 9.9 % (4.0-6.0)
[2022-09-18 22:56] LABS: UR Morphine/Opiate cutoff 300 Negative (Negative); Ur Creatinine 20 (Normal); Ur Specific Gravity 1.025 (Normal); Urine Amphetamines Negative (Negative); Urine Barbiturates Negative (Negative); Urine Benzodiazepines Negative (Negative); Urine Cocaine Negative (Negative); Urine MDMA Negative (Negative); Urine Methadone Negative (Negative); Urine Methamphetamines Negative (Negative); Urine Oxycodone Negative (Negative); Urine Phencyclidine Negative (Negative); Urine Tetrahydrocannabinol Negative (Negative); Urine Tricyclic Antidepressant Negative (Negative); Urine pH 5 (Normal)
[2022-09-18] MEDS: APIXABAN 5 MG TABLET 2.5 MG PO (23:15)
[2022-09-18 23:27] LABS: Free T4, Direct Thyroxine 1.23 ng/dL (0.78-2.19)
[2022-09-18 23:56] LABS: Thyroid Stimulating Hormone 1.64 uIU/mL (0.47-4.68)
--- NOTE | 2022-09-18 23:58 | PC.NURSE ---
Patient's BG 292. Patient refused both the Glargine and Lispro insulin, stating I would never take that much insulin at night, I would bottom out, and At the most I would take one unit of the long acting insulin this late. RN explained that his blood sugar is too high, and his A1C is high showing poor control of his blood sugar, and the importance of keeping his blood sugar under control. RN also explained the difference between the fast and long acting insulins and encouraged patient to have his long acting insulin. Patient continued to refuse both insulins and acknowledged that he understands it is against medical advice to not take them.
[2022-09-19] VITALS (10 sets, daily range): BP systolic 120–131; BP diastolic 49–73; PULSE 70–85; RESP 14–18; TEMP 36.2–36.8; O2SAT 92–95
[2022-09-19 00:23] LABS: Appearance Urine UA CLEAR; Bilirubin Urine UA NEGATIVE (NEGATIVE); Color Urine UA YELLOW; Glucose Urine UA TRACE g/dL (Negative); Ketones Urine UA NEGATIVE (NEGATIVE); Leukocyte Esterase Urine UA NEGATIVE (NEGATIVE); Nitrite Urine UA NEGATIVE (Negative); Occult Blood Urine UA NEGATIVE (Negative); Protein Urine UA NEGATIVE (Negative); Urobilinogen Urine UA 0.2 E.U./dL (0.2)
[2022-09-19 00:31] LABS: Bacteria Urine None Seen; RBC Urine None Seen (0-5/HPF); WBC Urine None Seen (0-5/HPF)
[2022-09-19 00:53] LABS: Troponin I 0.028 ng/mL (0.01-0.034)
--- NOTE | 2022-09-19 04:31 | PM.HP.1 ---
History of Present Illness History of Present Illness Date Patient Seen: 09/18/22 Time Patient Seen: 22:14 Chief complaint: defib went off x 2 Narrative: Raul Ray ?is a 82-year-old male patient with a history coronary artery disease with stent placement, NM, ischemic cardiomyopathy, insulin-dependent diabetes, severe HOWIE, systolic CHF (EF 35-40%), atrial fibrillation and AICD implantation who presents to the ER today with frequent defibrillator discharges, patient was seen in the ED for this on 09/09/2022 and was cardioverted x2 for V-tach they increased his metoprolol from 100 mg b.i.d. to 150 mg in the a.m. and 100 mg q.h.s., which did not cease the defibrillator discharging. Patient had not yet had the ability to follow up with Cardiology but had been in contact with our office regarding the frequent defibrillator discharges. In ED Pacemaker interrogated.? He did have V-tach run of about 30 seconds he has had multiple episodes of AFib with RVR.? He was cardioverted twice today once at 30 joules and once at [address] Duncan is the patient's building illuminating engineer last echo & perfusion scan was on 01/18/2022 (I personally reviewed), pulmonary function test 01/31/[address] Nathan ((I personally reviewed). At the time of admit patient denies currently any chest pain, shortness at breath, headache, changes in vision, numbness, tingling, cough, sore throat, upper respiratory symptoms, fever, body aches, chills, abdominal pain, nausea, vomiting, diarrhea, constipation, urinary symptoms, skin injuries infections, any other changes to medication, or any recent illness injury or trauma. At the time of admit temp 98?, BP 141/70, HR 74, R 23, O2 saturation 95% on room air. WBC 12.7, H&H 12.5/38.4, mild left shift neutrophils# 8800, mono# 1300, baso# 200, procalcitonin, lactate are WNL. Chest x-ray demonstrates cardiomegaly, bibasilar atelectasis and/or infiltrates with small left pleural effusions Sodium 134, chloride 96, BUN 30, creatinine 1.73, GFR 38-these are at baseline for patient's CKD stage 3, albumin 3.4, CK-2:3.28, initial troponin 0.020, 0.028. Magnesium 2.0, K 4.6 stable-EKG paced rhythm rate [address] changes, unchanged from previous EKG (I personally reviewed). BNP 4350. Patient admitted with AFib with RVR, and intermittent ventricular tachycardia with frequent AICD discharges, and CHF exacerbation Consult in ED:1930 Dr. Lopez, cardiology updated on patient's symptoms test results states that he needs an anti rhythmic drug recommend sotalol if he is not previously tolerated amiodarone.? Recommends 80 mg twice a day he needs to be monitored in the hospital for about 4-5 doses.? Needs EKG every 2 doses to monitor QTC interval.? It can cause bradycardia he has got a pacemaker should not have episodes of bradycardia.? He can follow up with Cardiology after discharge.? May be able to wean down the metoprolol as well.? Agrees with Lasix if he needs it. The patient states he did not tolerate amiodarone he was on it for too long and started having amiodarone toxicity. Patient History Medical History (Updated 09/18/22 @ 20:13 by Amparo Milan DO) Atrial fibrillation Hyperlipidemia Hypertension Ischemic cardiomyopathy Myocardial infarction Obesity Obstructive sleep apnea of adult Primary insomnia Snoring Type 2 diabetes mellitus Surgical History History of cholecystectomy History of ERCP History of hernia repair History of left knee replacement History of partial knee replacement History of resection of pancreas History of splenectomy S/P implantation of automatic cardioverter/defibrillator (AICD) Family & Social History Family History Father No problems noted. Mother Leukemia Social History: household members spouse Prior Living Arrangements House Safety & Behavioral: Feels Safe in Current Yes Environment Been Physically Hurt or No Threatened By a Person Tobacco & Substance use: Tobacco type cigarettes Smoking Status Former smoker alcohol intake former alcohol intake frequency holiday/special occasion Substance Use Type does not use Meds Home Medications and Allergies Home Medications Medication Instructions Recorded Confirmed Type coenzyme Q10 100 mg capsule 100 mg PO DAILY ##0 07/15/12 09/18/22 History (CoQ-10) rosuvastatin 10 mg tablet (Crestor) 10 mg PO QPM ##0 07/15/12 09/18/22 History aspirin 81 mg tablet,delayed 81 mg OR QPM ##0 12/11/17 09/18/22 History release furosemide 40 mg tablet (Lasix) 60 mg PO BID #10 tabs 11/15/18 09/18/22 Rx apixaban 2.5 mg tablet 2.5 mg PO BID 11/18/18 09/18/22 History glucosamine [id number] 1 tab PO BID 11/18/18 09/18/22 History robert 1,500 mg-400 unit-100 mg tablet (Osteo Bi-Flex (5-Loxin)) insulin aspart U-100 100 unit/mL 40 - 50 units SUBCUT BID 11/18/18 09/18/22 History subcutaneous solution insulin glargine 100 unit/mL 25 units SUBCUT BID 11/18/18 09/18/22 History subcutaneous solution lisinopril 40 mg tablet 20 mg PO QPM 11/18/18 09/18/22 History metoprolol succinate 100 mg 100 mg PO BID 11/18/18 09/18/22 History tablet,extended release 24 hr finasteride 5 mg tablet 5 mg PO DAILY 09/18/22 09/18/22 History sacubitril 49 mg-valsartan 51 mg See Rx Instructions .Route .COMPLEX 09/18/22 09/18/22 History tablet (Entresto) tamsulosin 0.4 mg capsule 0.4 mg PO DAILY 09/18/22 09/18/22 History Allergies Allergy/AdvReac Type Severity Reaction Status Date / Time amoxicillin Allergy Mild DIARRHEA Verified 03/28/21 12:24 naproxen Allergy Mild DIARRHEA Verified 03/28/21 12:24 Penicillins [PENICILLINS] Allergy Unknown Verified 03/28/21 12:24 Exam Vital Signs (past 8 hours): - 09/18/22 22:55 09/18/22 20:38 09/19/22 01:00 Temperature 97.1 F L 97.3 F L Pulse Rate 70 90 73 Respiratory Rate 20 17 Blood Pressure 123/65 136/74 125/65 Pulse Oximetry 95 96 92 Oxygen Flow Rate 0 0 Oxygen Delivery Method Room Air Oxygen Flow Rate 0 Objective Labs Result Diagrams: 09/18/22 18:37 09/18/22 18:37 Labs: Laboratory Results - last 24 hr 09/18/22 09/18/22 09/18/22 18:37 18:37 18:37 WBC 12.7 H RBC 4.05 L Hgb 12.5 L Hct 38.4 L MCV 94.8 MCH 31.0 MCHC 32.7 RDW 13.3 Plt Count 271 Neut % (Auto) 69.6 Lymph % (Auto) 15.5 L [place] % (Auto) 10.5 Eos % (Auto) 3.1 Baso % (Auto) 1.3 Neut # (Auto) 8800 H Lymph # (Auto) 2000 [place] # (Auto) 1300 H Eos # (Auto) 400 Baso # (Auto) 200 H Sodium 134 L Potassium 4.6 Chloride 96 L Carbon Dioxide 29 BUN 30 H Creatinine 1.73 H Estimated GFR 38 L BUN/Creatinine Ratio 17.3 Glucose 317 H Hemoglobin A1c Lactate Calcium 8.2 L Magnesium 2.0 Total Bilirubin 0.4 AST 21 ALT 18 Alkaline Phosphatase 68 Total Creatine Kinase 127 CK-MB (CK-2) 3.28 H CK-MB (CK-2) Rel Index 2.6 Troponin I 0.020 NT-Pro-B Natriuret Pep 4350 H Total Protein 6.6 Albumin 3.4 L Globulin 3.2 Albumin/Globulin Ratio 1.1 Lipase 28 Procalcitonin TSH Free T4 Urine Color Urine Appearance Urine pH Ur Specific [place] Urine Protein Urine Glucose (UA) Urine Ketones Urine Occult Blood Urine Nitrate Urine Bilirubin Urine Urobilinogen Ur Leukocyte Esterase Urine RBC Urine WBC Urine Bacteria U Opiates 300ng/mL cut Ur Oxycodone Screen Urine Methadone Screen Ur Barbiturates Screen U Tricyclic Antidepress Ur Phencyclidine Scrn Ur Amphetamines Screen U Methamphetamines Scrn Ur MDMA Scrn (Ecstasy) U Benzodiazepines Scrn Urine Cocaine Screen U Marijuana (THC) Screen Ethyl Alcohol < 10 SARS-CoV-2 (PCR) 09/18/22 09/18/22 09/18/22 18:37 18:37 18:37 WBC RBC Hgb Hct MCV MCH MCHC RDW Plt Count Neut % (Auto) Lymph % (Auto) [place] % (Auto) Eos % (Auto) Baso % (Auto) Neut # (Auto) Lymph # (Auto) [place] # (Auto) Eos # (Auto) Baso # (Auto) Sodium Potassium Chloride Carbon Dioxide BUN Creatinine Estimated GFR BUN/Creatinine Ratio Glucose Hemoglobin A1c 9.9 H Lactate 1.7 Calcium Magnesium Total Bilirubin AST ALT Alkaline Phosphatase Total Creatine Kinase CK-MB (CK-2) CK-MB (CK-2) Rel Index Troponin I NT-Pro-B Natriuret Pep Total Protein Albumin Globulin Albumin/Globulin Ratio Lipase Procalcitonin TSH 1.64 Free T4 1.23 Urine Color Urine Appearance Urine pH Ur Specific [place] Urine Protein Urine Glucose (UA) Urine Ketones Urine Occult Blood Urine Nitrate Urine Bilirubin Urine Urobilinogen Ur Leukocyte Esterase Urine RBC Urine WBC Urine Bacteria U Opiates 300ng/mL cut Ur Oxycodone Screen Urine Methadone Screen Ur Barbiturates Screen U Tricyclic Antidepress Ur Phencyclidine Scrn Ur Amphetamines Screen U Methamphetamines Scrn Ur MDMA Scrn (Ecstasy) U Benzodiazepines Scrn Urine Cocaine Screen U Marijuana (THC) Screen Ethyl Alcohol SARS-CoV-2 (PCR) 09/18/22 09/18/22 09/18/22 18:37 20:03 22:30 WBC RBC Hgb Hct MCV MCH MCHC RDW Plt Count Neut % (Auto) Lymph % (Auto) [place] % (Auto) Eos % (Auto) Baso % (Auto) Neut # (Auto) Lymph # (Auto) [place] # (Auto) Eos # (Auto) Baso # (Auto) Sodium Potassium Chloride Carbon Dioxide BUN Creatinine Estimated GFR BUN/Creatinine Ratio Glucose Hemoglobin A1c Lactate Calcium Magnesium Total Bilirubin AST ALT Alkaline Phosphatase Total Creatine Kinase CK-MB (CK-2) CK-MB (CK-2) Rel Index Troponin I NT-Pro-B Natriuret Pep Total Protein Albumin Globulin Albumin/Globulin Ratio Lipase Procalcitonin 0.09 TSH Free T4 Urine Color Urine Appearance Urine pH Ur Specific [place] Urine Protein Urine Glucose (UA) Urine Ketones Urine Occult Blood Urine Nitrate Urine Bilirubin Urine Urobilinogen Ur Leukocyte Esterase Urine RBC Urine WBC Urine Bacteria U Opiates 300ng/mL cut Negative Ur Oxycodone Screen Negative Urine Methadone Screen Negative Ur Barbiturates Screen Negative U Tricyclic Antidepress Negative Ur Phencyclidine Scrn Negative Ur Amphetamines Screen Negative U Methamphetamines Scrn Negative Ur MDMA Scrn (Ecstasy) Negative U Benzodiazepines Scrn Negative Urine Cocaine Screen Negative U Marijuana (THC) Screen Negative Ethyl Alcohol SARS-CoV-2 (PCR) Negative 09/18/22 09/19/22 22:30 00:24 WBC RBC Hgb Hct MCV MCH MCHC RDW Plt Count Neut % (Auto) Lymph % (Auto) [place] % (Auto) Eos % (Auto) Baso % (Auto) Neut # (Auto) Lymph # (Auto) [place] # (Auto) Eos # (Auto) Baso # (Auto) Sodium Potassium Chloride Carbon Dioxide BUN Creatinine Estimated GFR BUN/Creatinine Ratio Glucose Hemoglobin A1c Lactate Calcium Magnesium Total Bilirubin AST ALT Alkaline Phosphatase Total Creatine Kinase CK-MB (CK-2) CK-MB (CK-2) Rel Index Troponin I 0.028 NT-Pro-B Natriuret Pep Total Protein Albumin Globulin Albumin/Globulin Ratio Lipase Procalcitonin TSH Free T4 Urine Color Yellow Urine Appearance Clear Urine pH 5.0 Ur Specific [place] 1.010 Urine Protein Negative Urine Glucose (UA) Trace H Urine Ketones Negative Urine Occult Blood Negative Urine Nitrate Negative Urine Bilirubin Negative Urine Urobilinogen 0.2 Ur Leukocyte Esterase Negative Urine RBC None seen Urine WBC None seen Urine Bacteria None seen U Opiates 300ng/mL cut Ur Oxycodone Screen Urine Methadone Screen Ur Barbiturates Screen U Tricyclic Antidepress Ur Phencyclidine Scrn Ur Amphetamines Screen U Methamphetamines Scrn Ur MDMA Scrn (Ecstasy) U Benzodiazepines Scrn Urine Cocaine Screen U Marijuana (THC) Screen Ethyl Alcohol SARS-CoV-2 (PCR) Assessment & Plan Assessment & Plan narrative: Raul Ray ?is a 82-year-old male patient with a history coronary artery disease with stent placement, NM, ischemic cardiomyopathy, insulin-dependent diabetes, severe HOWIE, systolic CHF (EF 35-40%), atrial fibrillation and AICD implantation who presents to the ER today with frequent defibrillator discharges, patient was seen in the ED for this on 09/09/2022 and was cardioverted x2 for V-tach they increased his metoprolol, he then returned today regarding the frequent defibrillator discharges due to V-tach runs and multiple episodes of AFib with RVR.? He was cardioverted twice today. Patient requires acute hospital admission for management and control atrial fibrillation with RVR and recurrent intermittent episodes of ventricular tachycardia, with compounding congestive heart failure exacerbation. Patient is being started on sotalol p.o. we will titrate metoprolol as needed, close monitoring with repeat EKGs, trend troponins, monitor electrolytes, gentle diuresis, and provide much needed patient education regarding diabetes and improve effective use of insulins. 1. Atrial fibrillation with RVR and ventricular tachycardia resulting in AICD recurrent discharges, acute on chronic, present on admission admit temp 98?, BP 141/70, HR 74, R 23, O2 saturation 95% on room air. WBC 12.7 -mild left shift neutrophils# 8800, mono# 1300, baso# 200, procalcitonin, lactate are WNL.-Monitor for infection? -V-tach run 30 seconds he has had multiple episodes of AFib with RVR-cardioverted twice today 30 joules/ [address] Duncan is the patient's building illuminating engineer -Last echo & perfusion scan was on 01/18/2022 (I personally reviewed), -start sotalol 80 mg b.i.d. Po-Patient to receive 4-5 doses... -Monitor on Tele: EKG every 2nd dose : Monitor for prolonged QTC, and bradycardia -continue metoprolol 100 mg b.i.d. (hold and notify provider for SBP<110, DBP<60, or HR<100-x 30min may be able to titrate down on metoprolol dose. -continue Eliquis -echo ordered -troponins 0.020, 0.028, will continue to trend x3-asymptomatic -Mag 2.0, potassium 4.6 2. Systolic congestive heart failure, exacerbation, acute on chronic, present on admission -Admit B/P 141/70, BNP 4350 -patient reports that he takes a total of 40 mg IV Lasix daily, will gently diurese with 20 mg IV Lasix b.i.d. -fluid restriction less than 2000, low-sodium diet, monitor strict I&Os -patient report previous amiodarone toxicity -01/18/2022 Last echo EF 35-40% & -01/18/2022 perfusion scan: This is an abnormal myocardial perfusion study consistent with large size infarction of inferior wall extending into the inferior apex, inferior septum as well as basal inferolateral wall without any significant reversible ischemic burden.? -Chest x-ray demonstrates cardiomegaly, bibasilar atelectasis and/or infiltrates with small left pleural effusions (I personally reviewed) -respiratory consult ordered 3. Hypertension, essential, chronic, present on admission -continue metoprolol titrate down as needed secondary to sotalol -Admit 141/70 4. Insulin-dependent diabetes secondary to hyperlipidemia, acute on chronic, uncontrolled, present on admission -admitting blood sugar 317, A1c: 9.9% -patient reports to taking NovoLog 40-50 units b.i.d., and Lantus 25 units at bedtime. Patient also refused Lantus at the time of admit stating it was too late to take his blood sugar and that it would cause him to bottom out. I provided Aissatou RN with education to provide to the patient regarding Lantus being a long-acting insulin not having a peak and that it would not cause his blood sugar to bottom out. It is concerning that the patient is using both the NovoLog and Lantus inappropriately. -Patient requires extensive education to use NovoLog prior to eating meals and split Lantus BID, patient's blood sugar coverage should be greater with Lantus for Basal rate-more controlled blood sugar throughout the day with less variability. The NovoLog should be used prior to meals preprandial according to carbohydrate intake & BS to control postprandial blood sugars 1.5- 2 hours after meal. And that dosing such large amounts of NovoLog irregardless of meals is most likely leading to severe swings of hypoglycemia/hypergylcemia and uncontrolled diabetes. -dietary consult for diabetes education ordered -I have changed patient to 20 units of Lantus b.i.d., high dose NovoLog sliding scale for meals, a.c. HS blood sugar checks -patient admitted under diabetic protocol, monitoring for hypo and hyperglycemia -continue Crestor 5. Severe obstructive sleep apnea, chronic, present on admission -respiratory consult ordered -pulmonary function test 01/31/22 Dr. Erwin:This study demonstrates mild to moderate obstructive lung disease based on reduction FEV1.? FEV1/FVC ratio is relatively preserved but there is evidence of benefit following bronchodilator particularly small airway flows as above based on improvement in FEF 25-75% There is also moderate severe reduction in lung volumes suggesting moderate restrictive lung disease which may explain most of the abnormality in FEV1 above There is also a egar-[id number]-[id number] reduction diffusing capacity suggesting disease at the capillary alveolar level. 6. Chronic kidney disease stage 3, chronic, present on admission -Sodium 134, chloride 96, BUN 30, creatinine 1.73, GFR 38 -baseline creatinine 1.57-1.84, BUN 30-39 -continue to monitor renal function -strict I&O -avoid nephrotoxic medications -had been advised by ED that Radiology mistook this patient, for another took him to Radiology for a chest CT with contrast to rule out PE-and completed the study. Dr. Milan did not order this study due to the patient's chronic kidney disease-Dr. Milan advised tas to monitor patient's renal function closely secondary to use of CT contrast. 7. Ischemic cardiomyopathy with history of myocardial infarction, chronic, present on admission -managed by Dr. Duncan 8. Obesity as evidence by BMI 31.2, acute on chronic, present on admission -dietary consult ordered regarding nutritional education and information for dietary, lifestyle, exercise, and weight changes. -the patient is at much higher risk for medical and surgical complications due to obesity as it relates to chronic illnesses:, and current acute illness. The patient's obesity increases the difficulty and complexity of medical and/or surgical interventions, management and increases the chances of poor outcome such as morbidity and mortality as well as impaired wound healing. 9. BPH, chronic, present on admission -continue Flomax and finasteride Code status: Full Surrogate decision maker: Irish Flor-spouse COVID PCR: Negative DVT/VTE prophylaxis: Eliquis and SCDs Disposition: Patient requires acute care inpatient for management of uncontrolled atrial fibrillation with RVR and ventricular tachycardia as well as CHF exacerbation after failing outpatient management, expected length of stay greater than 2 midnights. I have utilized all available immediate resources to obtain, update, or review the patient's current medications. I confirmed that the patient's advanced care plan is present, Code status is documented and/or surrogate decision maker is listed in the patient's medical record. I have personally reviewed patient's chart notes from PCP, specialists, diagnostic imaging, and laboratory, Time Spent With Patient Critical Care time: I spent a total of [] minutes of critical care time on this patient's care today; this time is exclusive of procedural time. Quality VTE Deep Vein Thrombosis/Pulmonary Embolism Present on Admission: No
[2022-09-19 06:40] LABS: Add Manual Diff / Slide Review NO; Basophils Absolute Auto 100 /uL (0-100); Basophils Percent Auto 0.8 % (0-2); Eosinophils Absolute Auto 600 /uL (0-450); Eosinophils Percent Auto 4.1 % (2-4); Hematocrit 39.5 % (41-53); Hemoglobin 12.9 g/dL (13.5-17.5); Lymphocytes Absolute Auto 2300 /uL (1100-4500); Lymphocytes Percent Auto 16.3 % (25-40); Mean Corpuscular HGB Conc 32.7 % (30-36); Mean Corpuscular Volume 94.7 fL (80-100); Monocytes Absolute Auto 1800 /uL (0-900); Monocytes Percent Auto 12.8 % (3-14); Neutrophils Absolute Auto 9200 /uL (1500-7000); Platelet Count 288 X10^3/uL (150-400); Red Blood Cell Count 4.16 X10^6/uL (4.5-5.9); Red Cell Distribution Width 13.4 % (11.6-14.8); White Blood Cell Count 13.9 X10^3/uL (4.5-11.0)
[2022-09-19 06:44] LABS: INR 1.4 (0.9-1.3); Prothrombin Time 15.7 SECONDS (10.1-12.7)
[2022-09-19 06:54] LABS: Alanine Aminotransferase 18 IU/L (<50); Albumin 3.4 g/dL (3.5-5.0); Albumin Globulin Ratio 1.1 (1.0-2.8); Alkaline Phosphatase 71 U/L (38-126); Aspartate Aminotransferase 19 IU/L (17-59); BUN Creatinine Ratio 18.6 (6-22); Bilirubin Total 0.8 mg/dL (0.2-1.3); Blood Urea Nitrogen 29 mg/dL (9-20); Calcium 8.5 mg/dL (8.4-10.2); Carbon Dioxide 30 mmol/L (22-32); Chloride 99 mmol/L (98-107); Estimated Glomerular Filt Rate 44 mL/min (>60); Globulin 3.1 g/dL (1.7-4.1); Glucose 185 mg/dL (80-110); HEMOLYSIS 22 (0-50); Magnesium 2.1 mg/dL (1.6-2.3); Potassium 4.5 mmol/L (3.4-5.1); Sodium 136 mmol/L (137-145); Total Protein 6.5 g/dL (6.3-8.2)
[2022-09-19 07:00] LABS: Troponin I 0.028 ng/mL (0.01-0.034)
[2022-09-19 07:03] LABS: NT-proBNP (BNP-Adult 18+) 2520 pg/mL (<450)
--- NOTE | 2022-09-19 07:23 | P.PN_ITS ---
Exam Vital Signs (past 8 hours): - 09/19/22 01:00 09/19/22 05:16 Temperature 97.3 F L 97.1 F L Pulse Rate 73 85 Respiratory Rate 17 18 Blood Pressure 125/65 120/73 Pulse Oximetry 92 92 Oxygen Flow Rate 0 0 Oxygen Delivery Method Room Air Oxygen Flow Rate 0 Narrative Exam Narrative: GEN: no acute distress, comfortable HEENT: moist mucous membranes, PERRL NECK: trachea midline, no JVD CV: regular rate and rhythm, no murmurs PULM: clear bilaterally ABD: soft, nontender, nondistended, no organomegaly EXT: warm and well perfused with no edema NEURO: awake, alert, oriented, no focal deficits Objective Labs Result Diagrams: 09/19/22 06:28 09/19/22 06:28 Labs: Laboratory Results - last 24 hr 09/18/22 09/18/22 09/18/22 18:37 18:37 18:37 WBC 12.7 H RBC 4.05 L Hgb 12.5 L Hct 38.4 L MCV 94.8 MCH 31.0 MCHC 32.7 RDW 13.3 Plt Count 271 Neut % (Auto) 69.6 Lymph % (Auto) 15.5 L [place] % (Auto) 10.5 Eos % (Auto) 3.1 Baso % (Auto) 1.3 Neut # (Auto) 8800 H Lymph # (Auto) 2000 [place] # (Auto) 1300 H Eos # (Auto) 400 Baso # (Auto) 200 H PT INR Sodium 134 L Potassium 4.6 Chloride 96 L Carbon Dioxide 29 BUN 30 H Creatinine 1.73 H Estimated GFR 38 L BUN/Creatinine Ratio 17.3 Glucose 317 H Hemoglobin A1c Lactate Calcium 8.2 L Magnesium 2.0 Total Bilirubin 0.4 AST 21 ALT 18 Alkaline Phosphatase 68 Total Creatine Kinase 127 CK-MB (CK-2) 3.28 H CK-MB (CK-2) Rel Index 2.6 Troponin I 0.020 NT-Pro-B Natriuret Pep 4350 H Total Protein 6.6 Albumin 3.4 L Globulin 3.2 Albumin/Globulin Ratio 1.1 Lipase 28 Procalcitonin TSH Free T4 Urine Color Urine Appearance Urine pH Ur Specific [place] Urine Protein Urine Glucose (UA) Urine Ketones Urine Occult Blood Urine Nitrate Urine Bilirubin Urine Urobilinogen Ur Leukocyte Esterase Urine RBC Urine WBC Urine Bacteria U Opiates 300ng/mL cut Ur Oxycodone Screen Urine Methadone Screen Ur Barbiturates Screen U Tricyclic Antidepress Ur Phencyclidine Scrn Ur Amphetamines Screen U Methamphetamines Scrn Ur MDMA Scrn (Ecstasy) U Benzodiazepines Scrn Urine Cocaine Screen U Marijuana (THC) Screen Ethyl Alcohol < 10 SARS-CoV-2 (PCR) 09/18/22 09/18/22 09/18/22 18:37 18:37 18:37 WBC RBC Hgb Hct MCV MCH MCHC RDW Plt Count Neut % (Auto) Lymph % (Auto) [place] % (Auto) Eos % (Auto) Baso % (Auto) Neut # (Auto) Lymph # (Auto) [place] # (Auto) Eos # (Auto) Baso # (Auto) PT INR Sodium Potassium Chloride Carbon Dioxide BUN Creatinine Estimated GFR BUN/Creatinine Ratio Glucose Hemoglobin A1c 9.9 H Lactate 1.7 Calcium Magnesium Total Bilirubin AST ALT Alkaline Phosphatase Total Creatine Kinase CK-MB (CK-2) CK-MB (CK-2) Rel Index Troponin I NT-Pro-B Natriuret Pep Total Protein Albumin Globulin Albumin/Globulin Ratio Lipase Procalcitonin TSH 1.64 Free T4 1.23 Urine Color Urine Appearance Urine pH Ur Specific [place] Urine Protein Urine Glucose (UA) Urine Ketones Urine Occult Blood Urine Nitrate Urine Bilirubin Urine Urobilinogen Ur Leukocyte Esterase Urine RBC Urine WBC Urine Bacteria U Opiates 300ng/mL cut Ur Oxycodone Screen Urine Methadone Screen Ur Barbiturates Screen U Tricyclic Antidepress Ur Phencyclidine Scrn Ur Amphetamines Screen U Methamphetamines Scrn Ur MDMA Scrn (Ecstasy) U Benzodiazepines Scrn Urine Cocaine Screen U Marijuana (THC) Screen Ethyl Alcohol SARS-CoV-2 (PCR) 09/18/22 09/18/22 09/18/22 18:37 20:03 22:30 WBC RBC Hgb Hct MCV MCH MCHC RDW Plt Count Neut % (Auto) Lymph % (Auto) [place] % (Auto) Eos % (Auto) Baso % (Auto) Neut # (Auto) Lymph # (Auto) [place] # (Auto) Eos # (Auto) Baso # (Auto) PT INR Sodium Potassium Chloride Carbon Dioxide BUN Creatinine Estimated GFR BUN/Creatinine Ratio Glucose Hemoglobin A1c Lactate Calcium Magnesium Total Bilirubin AST ALT Alkaline Phosphatase Total Creatine Kinase CK-MB (CK-2) CK-MB (CK-2) Rel Index Troponin I NT-Pro-B Natriuret Pep Total Protein Albumin Globulin Albumin/Globulin Ratio Lipase Procalcitonin 0.09 TSH Free T4 Urine Color Urine Appearance Urine pH Ur Specific [place] Urine Protein Urine Glucose (UA) Urine Ketones Urine Occult Blood Urine Nitrate Urine Bilirubin Urine Urobilinogen Ur Leukocyte Esterase Urine RBC Urine WBC Urine Bacteria U Opiates 300ng/mL cut Negative Ur Oxycodone Screen Negative Urine Methadone Screen Negative Ur Barbiturates Screen Negative U Tricyclic Antidepress Negative Ur Phencyclidine Scrn Negative Ur Amphetamines Screen Negative U Methamphetamines Scrn Negative Ur MDMA Scrn (Ecstasy) Negative U Benzodiazepines Scrn Negative Urine Cocaine Screen Negative U Marijuana (THC) Screen Negative Ethyl Alcohol SARS-CoV-2 (PCR) Negative 09/18/22 09/19/22 09/19/22 22:30 00:24 06:28 WBC 13.9 H RBC 4.16 L Hgb 12.9 L Hct 39.5 L MCV 94.7 MCH 31.0 MCHC 32.7 RDW 13.4 Plt Count 288 Neut % (Auto) 66.0 Lymph % (Auto) 16.3 L [place] % (Auto) 12.8 Eos % (Auto) 4.1 H Baso % (Auto) 0.8 Neut # (Auto) 9200 H Lymph # (Auto) 2300 [place] # (Auto) 1800 H Eos # (Auto) 600 H Baso # (Auto) 100 PT INR Sodium Potassium Chloride Carbon Dioxide BUN Creatinine Estimated GFR BUN/Creatinine Ratio Glucose Hemoglobin A1c Lactate Calcium Magnesium Total Bilirubin AST ALT Alkaline Phosphatase Total Creatine Kinase CK-MB (CK-2) CK-MB (CK-2) Rel Index Troponin I 0.028 NT-Pro-B Natriuret Pep Total Protein Albumin Globulin Albumin/Globulin Ratio Lipase Procalcitonin TSH Free T4 Urine Color Yellow Urine Appearance Clear Urine pH 5.0 Ur Specific [place] 1.010 Urine Protein Negative Urine Glucose (UA) Trace H Urine Ketones Negative Urine Occult Blood Negative Urine Nitrate Negative Urine Bilirubin Negative Urine Urobilinogen 0.2 Ur Leukocyte Esterase Negative Urine RBC None seen Urine WBC None seen Urine Bacteria None seen U Opiates 300ng/mL cut Ur Oxycodone Screen Urine Methadone Screen Ur Barbiturates Screen U Tricyclic Antidepress Ur Phencyclidine Scrn Ur Amphetamines Screen U Methamphetamines Scrn Ur MDMA Scrn (Ecstasy) U Benzodiazepines Scrn Urine Cocaine Screen U Marijuana (THC) Screen Ethyl Alcohol SARS-CoV-2 (PCR) 09/19/22 09/19/22 09/19/22 06:28 06:28 06:28 WBC RBC Hgb Hct MCV MCH MCHC RDW Plt Count Neut % (Auto) Lymph % (Auto) [place] % (Auto) Eos % (Auto) Baso % (Auto) Neut # (Auto) Lymph # (Auto) [place] # (Auto) Eos # (Auto) Baso # (Auto) PT 15.7 H INR 1.4 H Sodium 136 L Potassium 4.5 Chloride 99 Carbon Dioxide 30 BUN 29 H Creatinine 1.56 H Estimated GFR 44 L BUN/Creatinine Ratio 18.6 Glucose 185 H D Hemoglobin A1c Lactate Calcium 8.5 Magnesium 2.1 Total Bilirubin 0.8 AST 19 ALT 18 Alkaline Phosphatase 71 Total Creatine Kinase CK-MB (CK-2) CK-MB (CK-2) Rel Index Troponin I 0.028 NT-Pro-B Natriuret Pep 2520 H Total Protein 6.5 Albumin 3.4 L Globulin 3.1 Albumin/Globulin Ratio 1.1 Lipase Procalcitonin TSH Free T4 Urine Color Urine Appearance Urine pH Ur Specific [place] Urine Protein Urine Glucose (UA) Urine Ketones Urine Occult Blood Urine Nitrate Urine Bilirubin Urine Urobilinogen Ur Leukocyte Esterase Urine RBC Urine WBC Urine Bacteria U Opiates 300ng/mL cut Ur Oxycodone Screen Urine Methadone Screen Ur Barbiturates Screen U Tricyclic Antidepress Ur Phencyclidine Scrn Ur Amphetamines Screen U Methamphetamines Scrn Ur MDMA Scrn (Ecstasy) U Benzodiazepines Scrn Urine Cocaine Screen U Marijuana (THC) Screen Ethyl Alcohol SARS-CoV-2 (PCR) [facility] Medical History (Updated 09/18/22 @ 20:13 by Amparo Milan DO) Atrial fibrillation Hyperlipidemia Hypertension Ischemic cardiomyopathy Myocardial infarction Obesity Obstructive sleep apnea of adult Primary insomnia Snoring Type 2 diabetes mellitus Surgical History History of cholecystectomy History of ERCP History of hernia repair History of left knee replacement History of partial knee replacement History of resection of 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 Mother Leukemia Social History household members: spouse Smoking Status: Former smoker alcohol intake: former Assessment & Plan Assessment & Plan narrative: 1. Atrial fibrillation with RVR and ventricular tachycardia resulting in AICD recurrent discharges, acute on chronic, present on admission -V-tach run 30 seconds he has had multiple episodes of AFib with RVR- cardioverted twice in ED at 30 joules/ [address] Duncan is the patient's indoor landscape architect -per cards start sotalol 80 mg daily -Monitor on Tele: EKG every 2nd dose, goal QTc <500 currently 518 will give mag -titrate down metoprolol from 100 mg to 50 mg b.i.d. -continue Eliquis -echo with EF 35-40%, mild-mod global LV hypokinesis, severe hypokinsis/akinesis of inferior and inferoposterior wall, mod-severe MR all unchanged from previous study. -troponins 0.020, 0.028, 0.028 -continue eliquis 2. Systolic congestive heart failure, exacerbation, acute on chronic, present on admission -Admit B/P 141/70, BNP 4350 -patient reports that he takes a total of 40 mg IV Lasix daily, will gently diurese with 20 mg IV Lasix b.i.d. -fluid restriction less than 2000, low-sodium diet, monitor strict I&Os -patient report previous amiodarone toxicity -01/18/2022 Last echo EF 35-40%, repeat echo results as above -01/18/2022 perfusion scan: This is an abnormal myocardial perfusion study consistent with large size infarction of inferior wall extending into the inferior apex, inferior septum as well as basal inferolateral wall without any significant reversible ischemic burden.? -Chest x-ray demonstrates cardiomegaly, bibasilar atelectasis and/or infiltrates with small left pleural effusions 3. Hypertension, essential, chronic, present on admission -continue metoprolol titrate down as needed secondary to sotalol 4. Insulin-dependent diabetes with hyperlipidemia, acute on chronic, uncontrolled, present on admission -admitting blood sugar 317, A1c: 9.9% -20 units of Lantus b.i.d., high dose NovoLog sliding scale for meals, a.c. HS blood sugar checks -patient admitted under diabetic protocol, monitoring for hypo and hyperglycemia -continue Crestor 5. Severe obstructive sleep apnea, chronic, present on admission -pulmonary function test 01/31/22 Dr. Erwin:This study demonstrates mild to moderate obstructive lung disease based on reduction FEV1.? FEV1/FVC ratio is relatively preserved but there is evidence of benefit following bronchodilator particularly small airway flows as above based on improvement in FEF 25-75% There is also moderate severe reduction in lung volumes suggesting moderate restrictive lung disease which may explain most of the abnormality in FEV1 above There is also a [id number] reduction diffusing capacity suggesting disease at the capillary alveolar level. 6. Chronic kidney disease stage 3, chronic, present on admission -currently at baseline creatinine 1.57-1.84, BUN 30-39 -continue to monitor renal function -strict I&O -avoid nephrotoxic medications 7. Ischemic cardiomyopathy with history of myocardial infarction, chronic, present on admission -managed by Dr. Duncan 8. Obesity as evidence by BMI 31.2, acute on chronic, present on admission -dietary consult ordered regarding nutritional education and information for dietary, lifestyle, exercise, and weight changes. -the patient is at much higher risk for medical and surgical complications due to obesity as it relates to chronic illnesses:, and current acute illness. The patient's obesity increases the difficulty and complexity of medical and/or surgical interventions, management and increases the chances of poor outcome such as morbidity and mortality as well as impaired wound healing. 9. BPH, chronic, present on admission -continue Flomax and finasteride Code status: Full Surrogate decision maker: Irish Ray-spouse COVID PCR: Negative DVT/VTE prophylaxis: Eliquis Disposition: Pending monitoring of QTc while initiating solalol for a few doses, if stable can dc home in 1-2 days. Time Spent With Patient Critical Care time: I spent a total of [] minutes of critical care time on this patient's care today; this time is exclusive of procedural time. Quality VTE Deep Vein Thrombosis/Pulmonary Embolism Present on Admission: No
[2022-09-19] MEDS: INSULIN LISPRO 100 UNIT/ML 3ML VIAL SUBCUT ×2 (08:28→11:54)
[2022-09-19] MEDS: INSULIN GLARGINE 100 UNIT/ML 3ML PEN 20 UNIT SUBCUT (08:32)
[2022-09-19] MEDS: FINASTERIDE 5 MG TABLET PO (08:37)
[2022-09-19] MEDS: APIXABAN 5 MG TABLET 2.5 MG PO ×2 (08:37→20:44)
[2022-09-19] MEDS: TAMSULOSIN 0.4 MG CAPSULE PO (08:37)
[2022-09-19] MEDS: FUROSEMIDE 20 MG/2 ML VIAL IV ×2 (08:37→20:48)
[2022-09-19] MEDS: cefTRIAXone 1,000 MG in SODIUM CHLORIDE 0.9% 100 ML 200 MG IV (08:37)
[2022-09-19] MEDS: DOXYCYCLINE HYCLATE 100 MG TABLET PO ×2 (08:37→20:48)
[2022-09-19] MEDS: SOTALOL 80 MG TABLET PO (08:37)
--- NOTE | 2022-09-19 10:17 | DIET.CONS2 ---
Dietary Inpatient Consultation Note Admission Date: 09/18/2022 19:47 Adjusted pts diet order to reflect Fluid restriction as primary diet with CCD2 and Low sodium modifiers Diet: 09/18/22 Breakfast Fluid Restriction Diet Diet Modifications: CCD 30g, 2g sodium Total fluid amount: 2,000 Amount allotted to patient trays: 100 Free water included in total: Yes Fluid in addition to trays: 0552-0803 amount: 850 3137-8308 amount: 850 Nutrition Percent Meal Consumed 100% 09/19/22 09:05 Electronically Signed by: Erica Mao 09/19/22 10:17 Clinical Dietitian [address] [address]
--- NOTE | 2022-09-19 11:17 | PC.NURSE ---
Addendum entered by Bharti Macias R.N. 09/19/22 12:10: Patients lunch time blood sugar is 304, given 10u of insulin and he is now eating lunch. Original Note: Patients blood sugar this morning 195, given 20u of lantus and 4u of lispro. Patient using urinal to void. He denies any chest pain or sob. Given iv Lasix and patient is using the urinal at bedside. Resting now and ate well at breakfast.
--- NOTE | 2022-09-19 11:34 | DIET.CONS2 ---
Dietary Inpatient Consultation Note Admission Date: 09/18/2022 19:47 82y M referred to nutrition for DM med education as pt reports unwillingness to take recommended amount of short and long acting insulin over fears of hypoglycemia. Pt A1c >9 and BGs while hospitalized 185-292. Shove Up will visit pt on Friday morning for DM education. Diet: 09/18/22 Breakfast Fluid Restriction Diet Diet Modifications: CCD 30g, 2g sodium Total fluid amount: 2,000 Amount allotted to patient trays: 100 Free water included in total: Yes Fluid in addition to trays: 5576-9232 amount: 850 3988-4318 amount: 850 Nutrition Percent Meal Consumed 100% 09/19/22 09:05 Electronically Signed by: Erica Mao 09/19/22 11:34 Clinical Dietitian [address] [address]
--- NOTE | 2022-09-19 13:18 | CM.DANOTE ---
Patient is an 82 yo male who was admitted on 09/18/22 for Defib issues. Pt has [facility] and [employer] for insurance and his PCP is Dr. Klever [place] and Email Designer is Dr. Duncan. EMR was reviewed. Per MD, pt with hx of CHF, stent placement, diabetes, defibulator and admitted for Echo, Regular EKGs per Email Designer consult and recommendation of 4-5 doses while admitted before safe for discharge. Pt's white count is also up and unknown source of possible infection. SW met briefly bedside with pt and explained role and he confirms he still lives in [place] with his spouse and pt is mostly independent at baseline and spouse is supportive and they have adult Dtr assist if needed. Pt states he is established with his Email Designer and his last admission was for similar with defibrillator issues. Pt denies any hx of SNF or HH and preference is home via spouse POV and does not anticipate any needs. Plan: SW to follow closely for ongoing medical needs and confirm safe plan of home with spouse assist and any further identified needs. TEMO Egan Discharge Planning/Care Management CM Discharge Assessment Start: 09/19/22 13:16 Freq: Status: Active Protocol: Document 09/19/22 13:16 BF (Rec: 09/19/22 13:17 BF [id number]) Discharge Planning Assessment Assigned Liquid Yeast Supervisor TEMO Marcial DPOA/Assigned Designee Name spouse Irish Advance Directives? Yes Advance Directives on File No History Provided By Patient,Medical Record Has Patient been admitted in last 30 No days? Prior Living Arrangements House Household Members spouse Type of transporation used prior to Drives own vehicle admit Independent with ADL's Yes Is patient alert and oriented? Yes Caregiver for Another No Barriers to Discharge No Discharge Plan Home Transportation Arrangement likely spouse for transport at d/c Referrals Initiated None needed Whiteboard Updated in Patient Room with Yes name and ext. # of Liquid Yeast Supervisor Review Status In Process Please Provide Date Initial DC 09/19/22 Assessment Was Performed Next Review Type Continued Stay Review
[2022-09-19] MEDS: MAGNESIUM SULFATE 2 GM/50 ML PIGGYBACK IV (13:46)
[2022-09-19] MEDS: ATORVASTATIN 20 MG TABLET PO (17:06)
[2022-09-19] MEDS: ASPIRIN EC 81 MG TABLET PO (17:06)
[2022-09-19] MEDS: METOPROLOL ER 50 MG TABLET PO (20:45)
[2022-09-19] MEDS: SODIUM CHLORIDE 0.9% FLUSH 10 ML IV (20:57)
[2022-09-20] VITALS (8 sets, daily range): BP systolic 106–130; BP diastolic 52–70; PULSE 67–75; RESP 14–20; TEMP 35.9–37.3; O2SAT 91–95
--- NOTE | 2022-09-20 03:48 | PC.NURSE ---
JESUSITA Maloney notified that @ 0154 ICU called telemetry showed 13 runs of V-tach. When checked pt. @ 0155 he was sound asleep & snoring lightly. after a brief runs of V-tach his telemetry reading was back to his baseline paced HR. in the 70's. Will monitor.
[2022-09-20 04:40] LABS: Add Manual Diff / Slide Review NO; Basophils Absolute Auto 100 /uL (0-100); Eosinophils Absolute Auto 500 /uL (0-450); Hematocrit 39.4 % (41-53); Hemoglobin 12.9 g/dL (13.5-17.5); Lymphocytes Absolute Auto 2400 /uL (1100-4500); Lymphocytes Percent Auto 18.9 % (25-40); Mean Corpuscular HGB Conc 32.6 % (30-36); Mean Corpuscular Hemoglobin 30.7 PG (26-34); Mean Corpuscular Volume 94.2 fL (80-100); Monocytes Absolute Auto 1800 /uL (0-900); Monocytes Percent Auto 14.3 % (3-14); Neutrophils Absolute Auto 7900 /uL (1500-7000); Neutrophils Percent Auto 61.8 % (50-75); Platelet Count 283 X10^3/uL (150-400); Red Blood Cell Count 4.18 X10^6/uL (4.5-5.9); Red Cell Distribution Width 13.4 % (11.6-14.8); White Blood Cell Count 12.8 X10^3/uL (4.5-11.0)
[2022-09-20 04:49] LABS: Alanine Aminotransferase 18 IU/L (<50); Albumin 3.5 g/dL (3.5-5.0); Alkaline Phosphatase 79 U/L (38-126); Aspartate Aminotransferase 19 IU/L (17-59); Bilirubin Total 0.5 mg/dL (0.2-1.3); Blood Urea Nitrogen 32 mg/dL (9-20); Calcium 8.5 mg/dL (8.4-10.2); Carbon Dioxide 31 mmol/L (22-32); Chloride 100 mmol/L (98-107); Estimated Glomerular Filt Rate 37 mL/min (>60); Globulin 3.4 g/dL (1.7-4.1); Glucose 173 mg/dL (80-110); HEMOLYSIS < 15 (0-50); Magnesium 2.4 mg/dL (1.6-2.3); Potassium 4.3 mmol/L (3.4-5.1); Sodium 138 mmol/L (137-145); Total Protein 6.9 g/dL (6.3-8.2)
[2022-09-20] MEDS: SOTALOL 80 MG TABLET PO (07:17)
--- NOTE | 2022-09-20 07:48 | P.PN_ITS ---
Subjective Subjective Date Patient Seen: 09/20/22 Time Patient Seen: 16:30 Interval history: Had a 20 beat run of VT overnight which was nonsustained and patient was asymptomatic. ICD did not go off. Patient tearful at bedside due to dealing with this heart stuff for so long. Otherwise he Exam Vital Signs (past 8 hours): - 09/20/22 00:00 09/20/22 03:25 Temperature 97.2 F L 97.6 F Pulse Rate 71 67 Respiratory Rate 14 14 Blood Pressure 106/52 L 112/63 Pulse Oximetry 92 91 Oxygen Flow Rate 0 0 Oxygen Delivery Method Room Air Oxygen Flow Rate 0 Narrative Exam Narrative: GEN: no acute distress, intermittently tearful HEENT: moist mucous membranes, PERRL NECK: trachea midline, no JVD CV: regular rate and rhythm, no murmurs PULM: clear bilaterally ABD: soft, nontender, nondistended, no organomegaly EXT: warm and well perfused with no edema NEURO: awake, alert, oriented, no focal deficits Objective Labs Result Diagrams: 09/20/22 04:27 09/20/22 04:27 Labs: Laboratory Results - last 24 hr 09/20/22 09/20/22 04:27 04:27 WBC 12.8 H RBC 4.18 L Hgb 12.9 L Hct 39.4 L MCV 94.2 MCH 30.7 MCHC 32.6 RDW 13.4 Plt Count 283 Neut % (Auto) 61.8 Lymph % (Auto) 18.9 L [place] % (Auto) 14.3 H Eos % (Auto) 4.0 Baso % (Auto) 1.0 Neut # (Auto) 7900 H Lymph # (Auto) 2400 [place] # (Auto) 1800 H Eos # (Auto) 500 H Baso # (Auto) 100 Sodium 138 Potassium 4.3 Chloride 100 Carbon Dioxide 31 BUN 32 H Creatinine 1.78 H Estimated GFR 37 L BUN/Creatinine Ratio 18.0 Glucose 173 H Calcium 8.5 Magnesium 2.4 H Total Bilirubin 0.5 AST 19 ALT 18 Alkaline Phosphatase 79 Total Protein 6.9 Albumin 3.5 Globulin 3.4 Albumin/Globulin Ratio 1.0 PFSH Medical History (Updated 09/18/22 @ 20:13 by Amparo Milan DO) Atrial fibrillation Hyperlipidemia Hypertension Ischemic cardiomyopathy Myocardial infarction Obesity Obstructive sleep apnea of adult Primary insomnia Snoring Type 2 diabetes mellitus Surgical History History of cholecystectomy History of ERCP History of hernia repair History of left knee replacement History of partial knee replacement History of resection of 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 Mother Leukemia Social History household members: spouse Smoking Status: Former smoker alcohol intake: former Assessment & Plan Assessment & Plan narrative: 1. Atrial fibrillation with RVR and ventricular tachycardia resulting in AICD recurrent discharges, acute on chronic, present on admission -V-tach run 30 seconds he has had multiple episodes of AFib with RVR- cardioverted twice in ED at 30 joules/ [address] 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 Laughlin is his EP cards -continue Eliquis -echo with EF 35-40%, mild-mod global LV hypokinesis, severe hypokinsis/akinesis of inferior and inferoposterior wall, mod-severe MR all unchanged from previous study. -troponins 0.020, 0.028, 0.028 -continue eliquis -per cards started sotalol 80 mg daily, however QTc manpreet to [address] Heaven gonzalez who said to stop and increase metoprolol XL to 200mg BID -spoke with Dr. Laughlin who agreed with [facility], recommended starting mexiletine 200mg q8h after 2 half lives have passed since sotalol and discharging if stable to f/u with him in clinic -may not have mexiletine as not on formulary so pharmacy checking to see if [facility] has it or it can be ordered 2. Systolic congestive heart failure, exacerbation, acute on chronic, present on admission -Admit B/P 141/70, BNP 4350 -patient reports that he takes a total of 40 mg IV Lasix daily, will gently diurese with 20 mg IV Lasix b.i.d. -fluid restriction less than 2000, low-sodium diet, monitor strict I&Os -patient report previous amiodarone toxicity -01/18/2022 Last echo EF 35-40%, repeat echo results as above -01/18/2022 perfusion scan: This is an abnormal myocardial perfusion study consistent with large size infarction of inferior wall extending into the inferior apex, inferior septum as well as basal inferolateral wall without any significant reversible ischemic burden.? -Chest x-ray demonstrates cardiomegaly, bibasilar atelectasis and/or infiltrates with small left pleural effusions 3. Hypertension, essential, chronic, present on admission -continue metoprolol titrate down as needed secondary to sotalol 4. Insulin-dependent diabetes with hyperlipidemia, acute on chronic, unc ontrolled, present on admission -admitting blood sugar 317, A1c: 9.9% -20 units of Lantus b.i.d., high dose NovoLog sliding scale for meals, a.c. HS blood sugar checks -patient admitted under diabetic protocol, monitoring for hypo and hyperglycemia -continue Crestor 5. Severe obstructive sleep apnea, chronic, present on admission -pulmonary function test 01/31/22 Dr. Ewrin:This study demonstrates mild to moderate obstructive lung disease based on reduction FEV1.? FEV1/FVC ratio is relatively preserved but there is evidence of benefit following bronchodilator particularly small airway flows as above based on improvement in FEF 25-75% There is also moderate severe reduction in lung volumes suggesting moderate restrictive lung disease which may explain most of the abnormality in FEV1 above There is also a ewaz-ix-ncxpuyvk reduction diffusing capacity suggesting disease at the capillary alveolar level. 6. Chronic kidney disease stage 3, chronic, present on admission -currently at baseline creatinine 1.57-1.84, BUN 30-39 -continue to monitor renal function -strict I&O -avoid nephrotoxic medications 7. Ischemic cardiomyopathy with history of myocardial infarction, chronic, present on admission -managed by Dr. Duncan 8. Obesity as evidence by BMI 31.2, acute on chronic, present on admission -dietary consult ordered regarding nutritional education and information for dietary, lifestyle, exercise, and weight changes. -the patient is at much higher risk for medical and surgical complications due to obesity as it relates to chronic illnesses:, and current acute illness. The patient's obesity increases the difficulty and complexity of medical and/or surgical interventions, management and increases the chances of poor outcome such as morbidity and mortality as well as impaired wound healing. 9. BPH, chronic, present on admission -continue Flomax and finasteride Code status: Full Surrogate decision maker: Irish Ray-spouse COVID PCR: Negative DVT/VTE prophylaxis: Eliquis Disposition: Pending monitoring while on max beta harry/mexiletine if stable can dc home in 1-2 days. Time Spent With Patient Critical Care time: I spent a total of [] minutes of critical care time on this patient's care today; this time is exclusive of procedural time. Quality VTE Deep Vein Thrombosis/Pulmonary Embolism Present on Admission: No
[2022-09-20] MEDS: APIXABAN 5 MG TABLET 2.5 MG PO ×2 (09:42→20:39)
[2022-09-20] MEDS: DOXYCYCLINE HYCLATE 100 MG TABLET PO ×2 (09:42→20:41)
[2022-09-20] MEDS: TAMSULOSIN 0.4 MG CAPSULE PO (09:43)
[2022-09-20] MEDS: INSULIN LISPRO 100 UNIT/ML 3ML VIAL SUBCUT ×3 (09:43→20:45)
[2022-09-20] MEDS: METOPROLOL ER 50 MG TABLET PO (09:43)
[2022-09-20] MEDS: FINASTERIDE 5 MG TABLET PO (09:43)
[2022-09-20] MEDS: INSULIN GLARGINE 100 UNIT/ML 3ML PEN 20 UNIT SUBCUT (09:44)
[2022-09-20] MEDS: FUROSEMIDE 20 MG/2 ML VIAL IV ×2 (09:44→20:41)
[2022-09-20] MEDS: cefTRIAXone 1,000 MG in SODIUM CHLORIDE 0.9% 100 ML 200 MG IV (09:44)
[2022-09-20] MEDS: SODIUM CHLORIDE 0.9% FLUSH 10 ML IV ×2 (09:45→21:20)
--- NOTE | 2022-09-20 12:43 | DIET.CONS ---
Dietary Consultation Note Admission Date: 09/18/2022 19:47 Assessment: 82 y/o M with PMH of CAD, NE, IDDM, HOWIE, CHF, CKD and Afib. RD consulted for diabetes education on appropriate med management and uncontrolled DM. 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 Checks his BG at home 2-12x per day, often 4x. In discussing insulin regimen with Raul, he usually injects 60-70u Lantus in the morning, 0-10u HS and 80-70u Novolog with meals BID. Endorses hypoglycemia 3-4x per week, which is likely from the Novolog. Use to have shaking and sweating with hypo, now just has vision changes indicating some hypoglycemia unawareness potentially. Interested in CGM and pump technologies. A CGM would certainly be a good resource for him and his insurance should cover this. Does not have an outpatient physical therapist due to feeling as though none of them will take Medicare. Has been opposed to taking HS insulin due to fear of hypoglycemia. Per weight and 0.8u per kg, recs would indicate 20u Lantus BID (or 40u HS) and 13u novolog TID. Recent B, 195 (8am), 304, 130, 195. Also admitted with BG of 317 mg/dl and hgA1c of 9.9%. 2-10u Lispro provided on and 20u Lantus BID is the current amount in JAN. Ht: 177.8 cm Wt: 98.5 kg BMI: 31.1 Last BM: 09/19/22 (09/19/22 13:34) MNA: 12 Bob Score: 22 Diet: 09/18/22 Breakfast Fluid Restriction Diet Diet Modifications: CCD 30g, 2g sodium Total fluid amount: 2,000 Amount allotted to patient trays: 100 Free water included in total: Yes Fluid in addition to trays: [id number] amount: 850 [id number] amount: 850 Nutrition Percent Meal Consumed 100% 09/20/22 09:24 Percent Meal Consumed 100% 09/19/22 12:51 Percent Meal Consumed 100% 09/19/22 09:05 Labs: RBC 4.18 X10^6/uL (4.5-5.9) L 09/20/22 04:27 Hgb 12.9 g/dL (13.5-17.5) L 09/20/22 04:27 Hct 39.4 % (41-53) L 09/20/22 04:27 Creatinine 1.78 mg/dL (0.66-1.25) H 09/20/22 04:27 Hemoglobin A1c 9.9 % (4.0-6.0) H 09/18/22 18:37 Lactate 1.7 mmol/L (0.7-2.1) 09/18/22 18:37 NT-Pro-B Natriuret Pep 2520 pg/mL (<450) H 09/19/22 06:28 Interventions: 1. Discussed insulin actions and potential causes for hypo, ie amount of Novolog 2. Reviewed potential resources for CGM and pump therapies 3. Provided OP DSME contact info for DM support after discharge Monitoring/Evaluations: Rec 20u in the morning of Lantus and 10 u HS in the evening. Raul agreed to this regimen while admitted. Rec endocrinology and Diabetes Education upon discharge. Electronically Signed by: Cynthia Mccabe 09/20/22 12:43 Clinical Dietitian [address] [address]
[2022-09-20] MEDS: METOPROLOL ER 50 MG TABLET 150 MG PO (15:31)
[2022-09-20] MEDS: ATORVASTATIN 20 MG TABLET PO (17:41)
[2022-09-20] MEDS: METOPROLOL ER 50 MG TABLET 200 MG PO (20:39)
[2022-09-20] MEDS: INSULIN GLARGINE 100 UNIT/ML 3ML PEN 10 UNIT SUBCUT (20:43)
[2022-09-21] VITALS (10 sets, daily range): BP systolic 115–127; BP diastolic 55–69; PULSE 70–79; RESP 16–20; TEMP 35.8–37.3; O2SAT 92–95
[2022-09-21 06:06] LABS: Add Manual Diff / Slide Review NO; Basophils Absolute Auto 100 /uL (0-100); Basophils Percent Auto 0.8 % (0-2); Eosinophils Absolute Auto 600 /uL (0-450); Eosinophils Percent Auto 4.9 % (2-4); Hematocrit 40.5 % (41-53); Hemoglobin 13.4 g/dL (13.5-17.5); Lymphocytes Absolute Auto 2800 /uL (1100-4500); Lymphocytes Percent Auto 22.8 % (25-40); Mean Corpuscular Hemoglobin 30.8 PG (26-34); Mean Corpuscular Volume 93.5 fL (80-100); Monocytes Absolute Auto 1800 /uL (0-900); Monocytes Percent Auto 14.4 % (3-14); Neutrophils Absolute Auto 7100 /uL (1500-7000); Neutrophils Percent Auto 57.1 % (50-75); Platelet Count 294 X10^3/uL (150-400); Red Blood Cell Count 4.34 X10^6/uL (4.5-5.9); Red Cell Distribution Width 13.4 % (11.6-14.8); White Blood Cell Count 12.5 X10^3/uL (4.5-11.0)
[2022-09-21 06:15] LABS: Alanine Aminotransferase 18 IU/L (<50); Albumin 3.6 g/dL (3.5-5.0); Alkaline Phosphatase 79 U/L (38-126); Aspartate Aminotransferase 22 IU/L (17-59); BUN Creatinine Ratio 21.5 (6-22); Bilirubin Total 0.6 mg/dL (0.2-1.3); Blood Urea Nitrogen 39 mg/dL (9-20); Calcium 8.8 mg/dL (8.4-10.2); Carbon Dioxide 32 mmol/L (22-32); Chloride 99 mmol/L (98-107); Estimated Glomerular Filt Rate 36 mL/min (>60); Globulin 3.7 g/dL (1.7-4.1); Glucose 127 mg/dL (80-110); HEMOLYSIS < 15 (0-50); Magnesium 2.3 mg/dL (1.6-2.3); Potassium 4.1 mmol/L (3.4-5.1); Sodium 140 mmol/L (137-145); Total Protein 7.3 g/dL (6.3-8.2)
[2022-09-21] MEDS: cefTRIAXone 1,000 MG in SODIUM CHLORIDE 0.9% 100 ML 200 MG IV (08:54)
[2022-09-21] MEDS: TAMSULOSIN 0.4 MG CAPSULE PO (09:06)
[2022-09-21] MEDS: APIXABAN 5 MG TABLET 2.5 MG PO ×2 (09:06→20:01)
[2022-09-21] MEDS: FINASTERIDE 5 MG TABLET PO (09:06)
[2022-09-21] MEDS: DOXYCYCLINE HYCLATE 100 MG TABLET PO ×2 (09:06→20:02)
[2022-09-21] MEDS: FUROSEMIDE 20 MG/2 ML VIAL IV ×2 (09:08→20:04)
[2022-09-21] MEDS: INSULIN GLARGINE 100 UNIT/ML 3ML PEN 10 UNIT SUBCUT ×2 (09:13→20:15)
[2022-09-21] MEDS: SODIUM CHLORIDE 0.9% FLUSH 10 ML IV ×2 (09:14→20:04)
[2022-09-21] MEDS: METOPROLOL ER 50 MG TABLET 200 MG PO (10:29)
--- NOTE | 2022-09-21 10:34 | PC.NURSE ---
Day shift: OK to give Metoprolol at this time per Dr Riley. Pt's BP 115/55 and HR 79. Pt agrees to not get OOB w/o help from staff. Call light in reach. Bed alarm is on.
--- NOTE | 2022-09-21 11:16 | CM.DPNOTE ---
Discharge Planning Note: Met with patient who states he is tired, resting in bed. Per report, patient to start on new beta harry Mexilitine today and will need to stabilize. Discussed Home Health possibility with him, he is not interested. This DCP will attempt to speak with about HH when visits today. Plan: Discharge home to care of Irish when medically stable. Possible HH if needed/wanted. Tessie Perez RN/DCP
--- NOTE | 2022-09-21 11:35 | P.PN_ITS ---
Subjective Subjective Date Patient Seen: 09/21/22 Time Patient Seen: 16:30 Interval history: Longest 6 beat run of NSVT, no shocks overnight. Appears to have less frequent episodes on quality assurance monitor. Mexilitine did come in today, will start and continue tele monitoring per his EP provider recommendations. Exam Vital Signs (past 8 hours): - 09/21/22 04:35 09/21/22 09:38 09/21/22 09:05 Temperature 98.3 F Pulse Rate 76 79 Respiratory Rate 20 Blood Pressure 126/62 127/56 L Pulse Oximetry 93 Oxygen Delivery Method Room Air Oxygen Flow Rate 0 09/21/22 08:00 09/21/22 10:32 09/21/22 10:29 Temperature 96.4 F L 96.7 F L Pulse Rate 70 74 74 Respiratory Rate 19 18 Blood Pressure 127/56 L 115/55 L 115/55 L Pulse Oximetry 95 93 Oxygen Delivery Method Oxygen Flow Rate 0 0 09/21/22 11:10 Temperature Pulse Rate 71 Respiratory Rate Blood Pressure 125/69 Pulse Oximetry Oxygen Delivery Method Oxygen Flow Rate Oxygen Delivery Method Room Air Oxygen Flow Rate 0 Narrative Exam Narrative: GEN: no acute distress, intermittently tearful HEENT: moist mucous membranes, PERRL NECK: trachea midline, no JVD CV: regular rate and rhythm, no murmurs PULM: clear bilaterally ABD: soft, nontender, nondistended, no organomegaly EXT: warm and well perfused with no edema NEURO: awake, alert, oriented, no focal deficits Objective Labs Result Diagrams: 09/21/22 05:15 09/21/22 05:15 Labs: Laboratory Results - last 24 hr 09/21/22 09/21/22 05:15 05:15 WBC 12.5 H RBC 4.34 L Hgb 13.4 L Hct 40.5 L MCV 93.5 MCH 30.8 MCHC 33.0 RDW 13.4 Plt Count 294 Neut % (Auto) 57.1 Lymph % (Auto) 22.8 L Sequoyah % (Auto) 14.4 H Eos % (Auto) 4.9 H Baso % (Auto) 0.8 Neut # (Auto) 7100 H Lymph # (Auto) 2800 Sequoyah # (Auto) 1800 H Eos # (Auto) 600 H Baso # (Auto) 100 Sodium 140 Potassium 4.1 Chloride 99 Carbon Dioxide 32 BUN 39 H Creatinine 1.81 H Estimated GFR 36 L BUN/Creatinine Ratio 21.5 Glucose 127 H Calcium 8.8 Magnesium 2.3 Total Bilirubin 0.6 AST 22 ALT 18 Alkaline Phosphatase 79 Total Protein 7.3 Albumin 3.6 Globulin 3.7 Albumin/Globulin Ratio 1.0 [facility] Medical History (Updated 09/18/22 @ 20:13 by Amparo Milan DO) Atrial fibrillation Hyperlipidemia Hypertension Ischemic cardiomyopathy Myocardial infarction Obesity Obstructive sleep apnea of adult Primary insomnia Snoring Type 2 diabetes mellitus Surgical History History of cholecystectomy History of ERCP History of hernia repair History of left knee replacement History of partial knee replacement History of resection of 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 Mother Leukemia Social History household members: spouse Smoking Status: Former smoker alcohol intake: former Assessment & Plan Assessment & Plan narrative: 1. Atrial fibrillation with RVR and ventricular tachycardia resulting in AICD recurrent discharges, acute on chronic, present on admission -V-tach run 30 seconds he has had multiple episodes of AFib with RVR-cardio verted twice in ED at 30 joules/ [address] Duncan is the patient's commodity analyst and Dr. Laughlin is his EP. -continue Eliquis -echo with EF 35-40%, mild-mod global LV hypokinesis, severe hypokinsis/akinesis of inferior and inferoposterior wall, mod-severe MR all unchanged from previous study. -troponins 0.020, 0.028, 0.028 -per cards started sotalol 80 mg daily, however QTc manpreet to [address] Heaven gonzalez who said to stop and increase metoprolol XL to 200mg BID. -spoke with Dr. Laughlin who agreed with metop, recommended starting mexiletine 200mg q8h after 2 half lives have passed since sotalol and discharging if stable to f/u with him in clinic -mexilitine delivered today, will continue to monitor tele and possibly can discharge home tomorrow. 2. Systolic congestive heart failure, exacerbation, acute on chronic, present on admission -Admit B/P 141/70, BNP 4350 -patient reports that he takes a total of 40 mg IV Lasix daily, will gently continue with 20 mg IV Lasix b.i.d. -fluid restriction less than 2000, low-sodium diet, monitor strict I&Os -patient report previous amiodarone toxicity -01/18/2022 Last echo EF 35-40%, repeat echo results as above -01/18/2022 perfusion scan: This is an abnormal myocardial perfusion study consistent with large size infarction of inferior wall extending into the inferior apex, inferior septum as well as basal inferolateral wall without any significant reversible ischemic burden.? -Chest x-ray demonstrates cardiomegaly, bibasilar atelectasis and/or infiltrates with small left pleural effusions 3. Hypertension, essential, chronic, present on admission -continue metoprolol titrate down as needed secondary to sotalol 4. Insulin-dependent diabetes with hyperlipidemia, acute on chronic, uncontrolled, present on admission -admitting blood sugar 317, A1c: 9.9% -20 units of Lantus b.i.d., high dose NovoLog sliding scale for meals, a.c. HS blood sugar checks -patient admitted under diabetic protocol, monitoring for hypo and hyperglycemia -continue Crestor 5. Severe obstructive sleep apnea, chronic, present on admission -pulmonary function test 01/31/22 Dr. Nathan:This study demonstrates mild to moderate obstructive lung disease based on reduction FEV1.? FEV1/FVC ratio is relatively preserved but there is evidence of benefit following bronchodilator particularly small airway flows as above based on improvement in FEF 25-75% There is also moderate severe reduction in lung volumes suggesting moderate restrictive lung disease which may explain most of the abnormality in FEV1 above There is also a mytk-wa-venyqmoa reduction diffusing capacity suggesting disease at the capillary alveolar level. 6. Chronic kidney disease stage 3, chronic, present on admission -currently at baseline creatinine 1.57-1.84, BUN 30-39 -continue to monitor renal function -strict I&O -avoid nephrotoxic medications 7. Ischemic cardiomyopathy with history of myocardial infarction, chronic, present on admission -managed by Dr. Duncan as discussed above as well. 8. Obesity as evidence by BMI 31.2, acute on chronic, present on admission -dietary consult ordered regarding nutritional education and information for dietary, lifestyle, exercise, and weight changes. -the patient is at much higher risk for medical and surgical complications due to obesity as it relates to chronic illnesses:, and current acute illness. The patient's obesity increases the difficulty and complexity of medical and/or surgical interventions, management and increases the chances of poor outcome such as morbidity and mortality as well as impaired wound healing. 9. BPH, chronic, present on admission -continue Flomax and finasteride Code status: Full Surrogate decision maker: Irish Ray-spouse COVID PCR: Negative DVT/VTE prophylaxis: Eliquis Disposition: Pending monitoring while on max beta harry/mexiletine if stable can dc home in 1-2 days. Time Spent With Patient Critical Care time: I spent a total of [] minutes of critical care time on this patient's care today; this time is exclusive of procedural time. Quality VTE Deep Vein Thrombosis/Pulmonary Embolism Present on Admission: No
[2022-09-21] MEDS: INSULIN LISPRO 100 UNIT/ML 3ML VIAL SUBCUT ×3 (12:07→20:14)
[2022-09-21] MEDS: ATORVASTATIN 20 MG TABLET PO (17:37)
[2022-09-21] MEDS: SODIUM CHLORIDE 0.9% 500 ML 21 ML IV (22:58)
[2022-09-22 05:00] VITALS: BP 98/59; PULSE 82; RESP 18; TEMP 36.6; O2SAT 92
--- NOTE | 2022-09-22 08:44 | P.DS_ITS ---
History of Present Illness History of Present Illness Date Patient Seen: 09/22/22 Time Patient Seen: 08:30 Chief complaint: defib went off x 2 Narrative: Per Josefa Maloney, [facility]-: Raul Ray ?is a 82-year-old male patient with a history coronary artery disease with stent placement, NH, ischemic cardiomyopathy, insulin-dependent diabetes, severe HOWIE, systolic CHF (EF 35-40%), atrial fibrillation and AICD implantation who presents to the ER today with frequent defibrillator discharges, patient was seen in the ED for this on 09/09/2022 and was cardioverted x2 for V-tach they increased his metoprolol from 100 mg b.i.d. to 150 mg in the a.m. and 100 mg q.h.s., which did not cease the defibrillator discharging. Patient had not yet had the ability to follow up with Cardiology but had been in contact with our office regarding the frequent defibrillator discharges. In ED Pacemaker interrogated.? He did have V-tach run of about 30 seconds he has had multiple episodes of AFib with RVR.? He was cardioverted twice today once at 30 joules and once at [address] Duncan is the patient's java j2ee architect last echo & perfusion scan was on 01/18/2022 (I personally reviewed), pulmonary function test 01/31/[address] Ntahan ((I personally reviewed). At the time of admit patient denies currently any chest pain, shortness at breath, headache, changes in vision, numbness, tingling, cough, sore throat, upper respiratory symptoms, fever, body aches, chills, abdominal pain, nausea, vomiting, diarrhea, constipation, urinary symptoms, skin injuries infections, any other changes to medication, or any recent illness injury or trauma. At the time of admit temp 98?, BP 141/70, HR 74, R 23, O2 saturation 95% on room air. WBC 12.7, H&H 12.5/38.4, mild left shift neutrophils# 8800, mono# 1300, baso# 200, procalcitonin, lactate are WNL. Chest x-ray demonstrates cardiomegaly, bibasilar atelectasis and/or infiltrates with small left pleural effusions Sodium 134, chloride 96, BUN 30, creatinine 1.73, GFR 38-these are at baseline for patient's CKD stage 3, albumin 3.4, CK-2:3.28, initial troponin 0.020, 0.028. Magnesium 2.0, K 4.6 stable-EKG paced rhythm rate [address] changes, unchanged from previous EKG (I personally reviewed). BNP 4350. Patient admitted with AFib with RVR, and intermittent ventricular tachycardia with frequent AICD discharges, and CHF exacerbation Consult in ED:193 Dr. Lopez, cardiology updated on patient's symptoms test results states that he needs an anti rhythmic drug recommend sotalol if he is not previously tolerated amiodarone.? Recommends 80 mg twice a day he needs to be monitored in the hospital for about 4-5 doses.? Needs EKG every 2 doses to monitor QTC interval.? It can cause bradycardia he has got a pacemaker should not have episodes of bradycardia.? He can follow up with Cardiology after discharge.? May be able to wean down the metoprolol as well.? Agrees with Lasix if he needs it. The patient states he did not tolerate amiodarone he was on it for too long and started having amiodarone toxicity. Discharge Providers Provider Date of admission: 09/18/22 19:47 Discharge Date: 09/22/22 Primary care physician: Klever Gresham MD Consults: 09/18/22 21:46 Consult to Cardiology Routine Comment: Consulting Provider: Rick Duncan Reason for consultation: Afibw/rvr, SVT, CHF exac Has provider been notified: No 09/18/22 21:48 Consult to Dietitian, Adult Routine Comment: Reason For Exam: IDDM, BMI 31.2 09/18/22 21:51 Consult to Respiratory Therapy Evaluate & Treat Comment: as needed for SOB Physician Instructions: Evaluate and treat 09/19/22 05:13 Consult to Dietitian, Adult Routine Comment: Diabetes edu about appropriate med management Reason For Exam: Uncontrolled DM 09/20/22 12:03 Consult to Cardiology Routine Comment: Consulting Provider: Joceline Collado Reason for consultation: failed sotalol, runs of VT Discharge provider: Flo Riley DO Summary Hospital Course Discharge Diagnosis: Please see hospital course by problem list noted below: Hospital Course: 82 year old male admitted after multiple shocks. After titration with increased metoprolol and mexilitine he had no recurrence of symptoms and was discharged home. 1. Atrial fibrillation with RVR and ventricular tachycardia resulting in AICD recurrent discharges, acute on chronic, present on admission -V-tach run 30 seconds he has had multiple episodes of AFib with RVR- cardioverted twice in ED at 30 joules/ [address] Duncan is the patient's java j2ee architect and Dr. Laughlin is his EP. -continued home Eliquis -echo with EF 35-40%, mild-mod global LV hypokinesis, severe hypokinsis/akinesis of inferior and inferoposterior wall, mod-severe MR all unchanged from previous study. -troponins 0.020, 0.028, 0.028 then stopped trending, ACS ruled out. -per cards started sotalol 80 mg daily, however QTc manpreet to [address] Heaven gonzalez who said to stop and increase metoprolol XL to 200mg BID. -then spoke with Dr. Laughlin who agreed with met, recommended starting mexiletine 200mg q8h after 2 half lives have passed since sotalol. He was stable after initiating with no VTACH episodes on tele monitoring. Will continue mexilitine and he will have outpatient follow up with cardiology. 2. Systolic congestive heart failure, exacerbation, acute on chronic, present on admission -now improved after slight diuresis with IV lasix initially. Continue home diuretics on discharge as well as home medications. -patient reported previous amiodarone toxicity -01/18/2022 Last echo EF 35-40%, repeat echo results as above -01/18/2022 perfusion scan: This is an abnormal myocardial perfusion study consistent with large size infarction of inferior wall extending into the inferior apex, inferior septum as well as basal inferolateral wall without any significant reversible ischemic burden.? -Chest x-ray demonstrated cardiomegaly, bibasilar atelectasis and/or infiltrates with small left pleural effusions on admission.? 3. Hypertension, essential, chronic, present on admission -continue medications as noted above. 4. Insulin-dependent diabetes with hyperlipidemia, acute on chronic, uncontrolled, present on admission -admitting blood sugar 317, A1c: 9.9% -20 units of Lantus b.i.d., high dose NovoLog sliding scale for meals, a.c. HS blood sugar checks were provided here. -continue Crestor -outpatient PCP follow up for diabetes control given a1c of 9.9%. 5. Severe obstructive sleep apnea and restrictive/obstructive lung disease, chronic, present on admission -pulmonary function test 01/31/22 Dr. Nathan:This study demonstrates mild to moderate obstructive lung disease based on reduction FEV1.? FEV1/FVC ratio is relatively preserved but there is evidence of benefit following bronchodilator particularly small airway flows as above based on improvement in FEF 25-75% There is also moderate severe reduction in lung volumes suggesting moderate restrictive lung disease which may explain most of the abnormality in FEV1 above There is also a sniq-iz-xvvassfl reduction diffusing capacity suggesting disease at the capillary alveolar level. 6. Chronic kidney disease stage 3, chronic, present on admission -currently at baseline creatinine 7. Ischemic cardiomyopathy with history of myocardial infarction, chronic, present on admission -managed by Dr. Duncan as discussed above as well. 8. Obesity as evidence by BMI 31.2, acute on chronic, present on admission -dietary consult ordered regarding nutritional education and information for dietary, lifestyle, exercise, and weight changes. -the patient is at much higher risk for medical and surgical complications due to obesity as it relates to chronic illnesses:, and current acute illness.? The patient's obesity increases the difficulty and complexity of medical and/or surgical interventions, management and increases the chances of poor outcome such as morbidity and mortality as well as impaired wound healing.? 9. BPH, chronic, present on admission -continue Flomax and finasteride Time Spent with Patient Time spent: Greater than 30 minutes Exam Vital Signs (past 8 hours): - 09/22/22 05:00 Temperature 97.8 F Pulse Rate 82 Respiratory Rate 18 Blood Pressure 98/59 L Pulse Oximetry 92 Oxygen Flow Rate 0 Oxygen Delivery Method Room Air Oxygen Flow Rate 0 Narrative Exam Narrative: GEN: no acute distress, intermittently tearful HEENT: moist mucous membranes, PERRL NECK: trachea midline, no JVD CV: regular rate with irregularly irregular rhythm, no murmurs PULM: clear bilaterally no wheezing rhonchi or rales. ABD: soft, nontender, nondistended, no organomegaly EXT: warm and well perfused with no edema NEURO: awake, alert, oriented, no focal deficits Objective Labs Result Diagrams: 09/21/22 05:15 09/21/22 05:15 ON LICENSE OF [facility] Medical History (Updated 09/18/22 @ 20:13 by Amparo Milan DO) Atrial fibrillation Hyperlipidemia Hypertension Ischemic cardiomyopathy Myocardial infarction Obesity Obstructive sleep apnea of adult Primary insomnia Snoring Type 2 diabetes mellitus Surgical History History of cholecystectomy History of ERCP History of hernia repair History of left knee replacement History of partial knee replacement History of resection of 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 Mother Leukemia Social History household members: spouse Smoking Status: Former smoker alcohol intake: former Discharge Plan Discharge Plan Patient Disposition: Home Provider Discharge Comment: You were admitted to the hospital after some shocks from your defibrillator, medications were adjusted. Please follow up with Dr. Laughlin, his office should call next week with follow up appointments. Discharge orders & Medications Prescriptions: New metoprolol succinate 200 mg tablet extended release 24 hr 200 mg PO BID 30 Days Qty: 60 0RF mexiletine 200 mg capsule 200 mg PO TID 30 Days Qty: 90 0RF Continued rosuvastatin [Crestor] 10 MG tablet 10 mg PO QPM Qty: 0 coenzyme Q10 [CoQ-10] 100 mg Capsule 100 mg PO DAILY Qty: 0 aspirin 81 MG tablet,delayed release (DR/EC) 81 mg OR QPM Qty: 0 furosemide [Lasix] 40 mg tablet 60 mg PO BID Qty: 10 0RF insulin glargine 100 unit/mL solution 25 units subcut BID insulin aspart U-100 100 unit/mL solution 40 - 50 units subcut BID Label Comments: before meals lisinopril 40 mg Tablet 20 mg PO QPM [id number] [Osteo Bi-Flex (5-Loxin)] 1,500-400-100 mg-unit-mg Tablet 1 tab PO BID Label Comments: with a meal apixaban 2.5 mg tablet 2.5 mg PO BID finasteride 5 mg tablet 5 mg PO DAILY Entresto 49-51 mg tablet See Rx Instructions .ROUTE .COMPLEX Rx Instructions: 49-51MG tamsulosin 0.4 mg capsule 0.4 mg PO DAILY Discontinued metoprolol succinate 100 mg tablet extended release 24 hr 100 mg PO BID Follow up/Referrals: Klever Gresham MD [Primary Care Provider] - Benny Laughlin MD [Physician] - 6 Weeks Diet/Activity/Treatments Diet: Diet as Tolerated Activity: As tolerated Visit Report/Discharge Packet Instructions: Heart Failure, DI for Heart Failure, DI for Atrial Fibrillation, How to Prevent Falls Discharge Data Primary Care Provider: Klever Gresham Quality VTE Deep Vein Thrombosis/Pulmonary Embolism Present on Admission: No MIPS - DC The patient has current or prior documentation of left ventricular ejection fraction (LVEF) less than 40%, or moderate or severely depressed left ventricular systolic function.: Yes A. The patient was prescribed or already taking an Angiotensin-Converting Enzyme (TRINA) Inhibitor, or Angiotensin Receptor Gary (ARB).: Yes B. The patient was prescribed or already taking a beta-gary. [If Yes to Both A & B, STOP here]: Yes
[2022-09-22 08:58] VITALS: BP 118/64; PULSE 82; RESP 16; TEMP 36.4; O2SAT 96
[2022-09-22] MEDS: INSULIN LISPRO 100 UNIT/ML 3ML VIAL SUBCUT (09:05)
[2022-09-22] MEDS: INSULIN GLARGINE 100 UNIT/ML 3ML PEN 20 UNIT SUBCUT (09:05)
[2022-09-22 09:07] VITALS: BP 115/65; PULSE 81
[2022-09-22] MEDS: FINASTERIDE 5 MG TABLET PO (09:07)
[2022-09-22] MEDS: METOPROLOL ER 50 MG TABLET 200 MG PO (09:07)
[2022-09-22] MEDS: APIXABAN 5 MG TABLET 2.5 MG PO (09:07)
[2022-09-22] MEDS: TAMSULOSIN 0.4 MG CAPSULE PO (09:07)
[2022-09-22] MEDS: DOXYCYCLINE HYCLATE 100 MG TABLET PO (09:08)
[2022-09-22] MEDS: SODIUM CHLORIDE 0.9% FLUSH 10 ML IV (09:08)
[2022-09-22 10:00] VITALS: PULSE 74
--- NOTE | 2022-09-22 12:02 | PC.NURSE ---
Day shift: Paperwork signed and all questions answered. Pt has all personal belongings. MD scripts sent electronic to Pt's pharmacy. VS remain WNL. Denies any pain, chest pain, SOB or nausea. Left unit at approx 1205 via WC. Family member is driving Pt home. Pt encouraged to take all meds as directed and to go to all f/u's with his MD's. Also went over CHF again as a refresher. Pt accepting of the teaching.
== END 2022-09-22 12:08 | disposition home or self-care (01) | DRG 308 ==
LOC: ED 18:02 → AC 19:48
PROVIDERS: Admitting Provider Nurse Practitioner Family; Emergency Provider Emergency Medicine; Family Provider Internal Medicine; PCP Internal Medicine; Referring Provider Emergency Medicine; Visit Provider Nurse Practitioner Family
DX: I47.20 Ventricular tachycardia, unspecified (principal); I50.23 Acute on chronic systolic (congestive) heart failure; I13.0 Hypertensive heart and chronic kidney disease with heart failure and stage 1 through stage 4 chronic kidney disease, or unspecified chronic kidney disease; I48.91 Unspecified atrial fibrillation; E11.65 Type 2 diabetes mellitus with hyperglycemia; E78.5 Hyperlipidemia, unspecified; E11.22 Type 2 diabetes mellitus with diabetic chronic kidney disease; N18.30 Chronic kidney disease, stage 3 unspecified; E66.9 Obesity, unspecified; N40.0 Benign prostatic hyperplasia without lower urinary tract symptoms; I25.10 Atherosclerotic heart disease of native coronary artery without angina pectoris; I25.5 Ischemic cardiomyopathy; G47.33 Obstructive sleep apnea (adult) (pediatric); J44.9 Chronic obstructive pulmonary disease, unspecified; Z68.30 Body mass index [BMI] 30.0-30.9, adult; Z20.822 Contact with and (suspected) exposure to COVID-19; Z79.01 Long term (current) use of anticoagulants; Z79.4 Long term (current) use of insulin; Z95.0 Presence of cardiac pacemaker; Z87.891 Personal history of nicotine dependence; Z95.5 Presence of coronary angioplasty implant and graft
CPT/HCPCS: 36415; 71045; 80053; 80305; 80320; 81001; 82550; 82553; 82962; 83036; 83605; 83690; 83735; 83880; 84145; 84439; 84443; 84484; 85025; 85610; 87635; 93005; 93010; 93306; 96374; 99284; C9803; J0696; J1815; J1940; J3475; Q9967

== ENCOUNTER 2022-10-15 14:05 | Inpatient (IN) | payer MEDICARE, OTHER, SELFPAY ==
[2022-09-18 21:26] VITALS: BMI 31.1
[2022-10-15] VITALS (97 sets, daily range): BP systolic 82–120; BP diastolic 49–76; PULSE 66–165; RESP 13–33; TEMP 35.1–36.6; O2SAT 82–99; BMI 30.1; BMI 27.8
--- NOTE | 2022-10-15 | DI.US.S_ITS ---
PROCEDURE: US RENAL COMPLETE INDICATIONS: COMPLICATED UTI/SEPESIS TECHNIQUE: Real-time scanning was performed of the kidneys and bladder, with image documentation. COMPARISON: None. FINDINGS: Kidneys: The right kidney measures 10.2 cm in length. No hydronephrosis. Multiple cysts are seen with probable internal debris, the largest in the inferior pole measuring 2.2 x 1.9 x 1.6 cm. The left kidney measures 11.5 cm in length. No hydronephrosis. Multiple cysts are seen, the largest in the superior pole measuring 1.1 x 0.9 x 0.8 cm. Bladder: The bladder is decompressed with a Francisco. Miscellaneous: No free pelvic fluid. IMPRESSION: 1. No hydronephrosis. 2. Bladder decompressed with a Francisco. 3. Simple cysts of both kidneys. Dictated by: Abdi Salinas M.D. on 10/16/2022 at 8:25 Approved by: Abdi Salinas M.D. on 10/16/2022 at 8:29
--- NOTE | 2022-10-15 14:43 | ED.GENADULT ---
HPI - General Adult General Chief complaint: Syncope Stated complaint: Referred by Cardiology, Bad Reaction Time Seen by Provider: 10/15/22 14:15 Source: patient Mode of arrival: Ambulatory History of Present Illness HPI narrative: Patient is an 82-year-old male. Has a pacemaker in place. Is on anticoagulation. Has also had arrhythmias in the past. Was recently started on Mexilitine by his dag coater after having episodes of ventricular tachycardia. He states that after being on that medication for about 1 week he is started to have weakness, unsteadiness, dyspnea on exertion. No chest pain. No lower extremity swelling. He also states he has been having some abdominal discomfort. He is still passing flatus. He is still having bowel movements. No vomiting. He has had a decrease in oral intake. He contacted his dag coater to told him to come to the emergency department for concerns about a bad reaction to his new medications. Related Data Home Medications Medication Instructions Recorded Confirmed coenzyme Q10 100 mg capsule 100 mg PO DAILY ##0 07/15/12 09/18/22 (CoQ-10) rosuvastatin 10 mg tablet (Crestor) 10 mg PO QPM ##0 07/15/12 09/18/22 aspirin 81 mg tablet,delayed 81 mg OR QPM ##0 12/11/17 09/18/22 release apixaban 2.5 mg tablet 2.5 mg PO BID 11/18/18 09/18/22 glucosamine [id number] 1 tab PO BID 11/18/18 09/18/22 robert 1,500 mg-400 unit-100 mg tablet (Osteo Bi-Flex (5-Loxin)) insulin aspart U-100 100 unit/mL 40 - 50 units SUBCUT BID 11/18/18 09/18/22 subcutaneous solution insulin glargine 100 unit/mL 25 units SUBCUT BID 11/18/18 09/18/22 subcutaneous solution lisinopril 40 mg tablet 20 mg PO QPM 11/18/18 09/18/22 finasteride 5 mg tablet 5 mg PO DAILY 09/18/22 09/18/22 sacubitril 49 mg-valsartan 51 mg See Rx Instructions .Route .COMPLEX 09/18/22 09/18/22 tablet (Entresto) tamsulosin 0.4 mg capsule 0.4 mg PO DAILY 09/18/22 09/18/22 Previous Rx's Medication Instructions Recorded furosemide 40 mg tablet (Lasix) 60 mg PO BID #10 tabs 11/15/18 metoprolol succinate 200 mg 200 mg PO BID 30 days #60 tabs 09/22/22 tablet,extended release 24 hr mexiletine 200 mg capsule 200 mg PO TID 30 days #90 caps 09/22/22 Allergies Allergy/AdvReac Type Severity Reaction Status Date / Time amoxicillin Allergy Mild DIARRHEA Verified 10/15/22 14:10 naproxen Allergy Mild DIARRHEA Verified 10/15/22 14:10 Penicillins [PENICILLINS] Allergy Unknown Verified 10/15/22 14:10 Review of Systems Review of Systems ROS Unobtainable: All systems reviewed & are unremarkable except as noted in HPI and below Patient History Medical History (Updated 10/15/22 @ 17:23 by Hudson Martins DO) Atrial fibrillation Hyperlipidemia Hypertension Ischemic cardiomyopathy Myocardial infarction Obesity Obstructive sleep apnea of adult Primary insomnia Snoring Type 2 diabetes mellitus Surgical History History of cholecystectomy History of ERCP History of hernia repair History of left knee replacement History of partial knee replacement History of resection of 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 Mother Leukemia Social History household members: spouse Smoking Status: Former smoker alcohol intake: former Smoking Status: Former smoker alcohol intake frequency: holidays/special occasions only Substance Use Type: does not use Exam Initial Vital Signs Initial Vital Signs: Vital Signs Temperature 96.3 F L 10/15/22 14:11 Pulse Rate 67 10/15/22 14:11 Respiratory Rate 20 10/15/22 14:11 Blood Pressure 116/76 10/15/22 14:11 Pulse Oximetry 98 10/15/22 14:11 Oxygen Delivery Method 10/15/22 14:11 Const General: cooperative, comfortable and No ill appearing HENMT Head: normal to inspection and normocephalic Resp Effort & Inspection: normal respiratory effort Auscultation: clear to auscultation bilaterally Cardio Rate: regular rate Rhythm: regular rhythm GI Inspection: normal to inspection and non-distended Palpation: soft, No firm and No tender Auscultation: normal bowel sounds Skin General: no rashes or lesions noted Neuro General: patient alert, patient awake and moves all extremities Speech: speech normal Extrem General: normal to inspection, capillary refill normal and No edema Psych Appearance: grossly normal Course Orders Ordered: ED Orders 10/15/22 14:34 EKG-12 Lead Stat 10/15/22 14:42 Procalcitonin Stat 10/15/22 14:43 Lactate (Lactic Acid) Stat 10/15/22 14:44 XR chest 1V Stat 10/15/22 14:45 Blood Culture Stat Complete Blood Count AUTO DIFF Stat Comprehensive Metabolic Panel Stat Lipase Stat Magnesium Stat NT-proBNP (BNP-Adult 18+) Stat Partial Thromboplastin Time Stat Prothrombin Time INR Stat Troponin & CK Cardiac Panel Stat 10/15/22 14:50 Covid-19 + FLU A/B + RSV - PCR Stat 10/15/22 17:20 Urinalysis and Microscopic Stat Urine Culture Stat 10/15/22 17:52 Urinalysis and Microscopic Urgent 10/15/22 17:53 Respiratory Panel (Film Array) Stat 10/16/22 05:00 BMP [Basic Metabolic Panel] DAILY CBC Auto Diff [Complete Blood Count AUTO DIFF] DAILY 10/17/22 05:00 BMP [Basic Metabolic Panel] DAILY CBC Auto Diff [Complete Blood Count AUTO DIFF] DAILY 10/18/22 05:00 BMP [Basic Metabolic Panel] DAILY CBC Auto Diff [Complete Blood Count AUTO DIFF] DAILY Sodium Chloride (Normal Saline 0.9%) 1,000 mls @ 125 mls/hr IV CONT STEPHANI Last Admin: 10/15/22 16:48 Dose: 125 mls/hr Documented By: RB Vancomycin HCl (Vancomycin) 1,000 mg in 200 mls @ 200 mls/hr IV NOW ONE Stop: 10/15/22 18:21 Ceftriaxone Sodium 1,000 mg/ (Sodium Chloride) 100 mls @ 200 mls/hr IV Q24H STEPHANI Stop: 10/18/22 17:44 Melatonin (Melatonin 3 Mg Tablet) 6 mg PO BEDTIME PRN PRN Reason: Insomnia Polyethylene Glycol (Polyethylene Glycol 3350 17 Gm Powd.Pack) 17 gm PO DAILY PRN PRN Reason: Constipation Sennosides (Sennosides 8.6 Mg Tablet) 8.6 mg PO BID PRN PRN Reason: Constipation Vancomycin HCl (Vancomycin Per Pharmacy) 1 request MISC NOW ONE Stop: 10/15/22 17:39 Discontinued Medications Sodium Chloride (Normal Saline 0.9%) 1,000 mls @ 1,000 mls/hr IV BOLUS ONE Stop: 10/15/22 16:18 Last Infusion: 10/15/22 16:36 Dose: 0 mls/hr Documented By: Admin: 10/15/22 15:29 Dose: 1,000 mls/hr Documented By: RB Ceftriaxone Sodium 1,000 mg/ (Sodium Chloride) 100 mls @ 200 mls/hr IV NOW ONE Stop: 10/15/22 15:21 Last Infusion: 10/15/22 16:12 Dose: 0 mls/hr Documented By: Admin: 10/15/22 15:29 Dose: 200 mls/hr Documented By: RB Lidocaine HCl (Lidocaine 2% (Glydo) 6 Ml Gel) 6 ml TOP NOW ONE Stop: 10/15/22 17:10 Last Admin: 10/15/22 17:22 Dose: 6 ml Documented By: MARCELLS Vital Signs Vital signs: Vital Signs - 8 hr 10/15/22 14:11 10/15/22 14:29 10/15/22 14:30 Temperature 96.3 F L Pulse Rate 67 71 Respiratory Rate 20 Blood Pressure 116/76 97/60 Pulse Oximetry 98 92 Oxygen Delivery Method Room Air 10/15/22 14:30 10/15/22 14:39 10/15/22 14:39 Temperature Pulse Rate 71 78 Respiratory Rate 19 Blood Pressure 112/67 Pulse Oximetry 91 91 Oxygen Delivery Method 10/15/22 14:40 10/15/22 14:45 10/15/22 14:50 Temperature Pulse Rate 69 82 78 Respiratory Rate 24 23 23 Blood Pressure Pulse Oximetry 92 93 92 Oxygen Delivery Method 10/15/22 14:55 10/15/22 15:00 10/15/22 15:00 Temperature Pulse Rate 69 69 Respiratory Rate 20 18 Blood Pressure 98/57 L Pulse Oximetry 91 91 Oxygen Delivery Method 10/15/22 15:05 10/15/22 15:10 10/15/22 15:14 Temperature Pulse Rate 73 71 Respiratory Rate 17 17 Blood Pressure 86/55 L Pulse Oximetry 91 91 Oxygen Delivery Method 10/15/22 15:14 10/15/22 15:15 10/15/22 15:17 Temperature Pulse Rate 81 80 Respiratory Rate 25 H 24 Blood Pressure 82/58 L Pulse Oximetry 89 L 89 L Oxygen Delivery Method 10/15/22 15:17 10/15/22 15:20 10/15/22 15:20 Temperature Pulse Rate 81 76 Respiratory Rate 22 22 Blood Pressure 92/57 L Pulse Oximetry 92 96 Oxygen Delivery Method 10/15/22 15:25 10/15/22 15:25 10/15/22 15:30 Temperature Pulse Rate 69 Respiratory Rate 18 Blood Pressure 92/64 95/57 L Pulse Oximetry 97 Oxygen Delivery Method 10/15/22 15:30 10/15/22 15:35 10/15/22 15:35 Temperature Pulse Rate 75 69 Respiratory Rate 16 16 Blood Pressure 100/63 Pulse Oximetry 95 94 Oxygen Delivery Method 10/15/22 15:40 10/15/22 15:40 10/15/22 15:45 Temperature Pulse Rate 69 69 Respiratory Rate 16 20 Blood Pressure 103/59 L Pulse Oximetry 95 94 Oxygen Delivery Method 10/15/22 15:50 10/15/22 15:51 10/15/22 15:51 Temperature Pulse Rate 73 69 Respiratory Rate 19 15 Blood Pressure 99/49 L Pulse Oximetry 95 95 Oxygen Delivery Method 10/15/22 15:55 10/15/22 15:55 10/15/22 16:00 Temperature Pulse Rate 69 Respiratory Rate 14 Blood Pressure 103/56 L 104/55 L Pulse Oximetry 94 Oxygen Delivery Method 10/15/22 16:00 10/15/22 16:05 10/15/22 16:05 Temperature Pulse Rate 69 69 Respiratory Rate 15 17 Blood Pressure 100/59 L Pulse Oximetry 95 94 Oxygen Delivery Method 10/15/22 16:10 10/15/22 16:11 10/15/22 16:15 Temperature Pulse Rate 73 72 Respiratory Rate 20 23 Blood Pressure 99/56 L Pulse Oximetry 96 94 Oxygen Delivery Method 10/15/22 16:15 10/15/22 16:20 10/15/22 16:20 Temperature Pulse Rate 71 70 Respiratory Rate 20 16 Blood Pressure 101/59 L Pulse Oximetry 95 96 Oxygen Delivery Method 10/15/22 16:25 10/15/22 16:25 10/15/22 16:30 Temperature Pulse Rate 71 Respiratory Rate 16 Blood Pressure 104/59 L 97/55 L Pulse Oximetry 95 Oxygen Delivery Method 10/15/22 16:30 10/15/22 16:33 10/15/22 16:33 Temperature Pulse Rate 86 70 Respiratory Rate 23 20 Blood Pressure 110/54 L Pulse Oximetry 96 97 Oxygen Delivery Method 10/15/22 16:35 10/15/22 16:35 10/15/22 16:40 Temperature Pulse Rate 69 Respiratory Rate 17 Blood Pressure 109/59 L 100/55 L Pulse Oximetry 97 Oxygen Delivery Method 10/15/22 16:40 10/15/22 16:45 10/15/22 16:45 Temperature Pulse Rate 69 69 Respiratory Rate 17 23 Blood Pressure 101/56 L Pulse Oximetry 97 97 Oxygen Delivery Method 10/15/22 16:50 10/15/22 16:50 10/15/22 16:55 Temperature Pulse Rate 72 Respiratory Rate 16 Blood Pressure 108/56 L 105/57 L Pulse Oximetry 97 Oxygen Delivery Method 10/15/22 16:55 10/15/22 17:00 10/15/22 17:00 Temperature Pulse Rate 70 73 Respiratory Rate 15 17 Blood Pressure 107/56 L Pulse Oximetry 96 97 Oxygen Delivery Method 10/15/22 17:05 10/15/22 17:05 10/15/22 17:10 Temperature Pulse Rate 74 Respiratory Rate 14 Blood Pressure 103/58 L 96/53 L Pulse Oximetry 96 Oxygen Delivery Method 10/15/22 17:10 10/15/22 17:15 10/15/22 17:15 Temperature Pulse Rate 73 69 Respiratory Rate 16 21 Blood Pressure 100/51 L Pulse Oximetry 97 97 Oxygen Delivery Method 10/15/22 17:20 10/15/22 17:20 10/15/22 17:25 Temperature 95.2 F L Pulse Rate 72 Respiratory Rate 24 Blood Pressure 100/59 L 109/65 Pulse Oximetry 97 Oxygen Delivery Method 10/15/22 17:25 10/15/22 17:30 10/15/22 17:30 Temperature 95.7 F L 96.1 F L Pulse Rate 71 75 Respiratory Rate 20 15 Blood Pressure 107/57 L Pulse Oximetry 96 97 Oxygen Delivery Method Room Air Medical Decision Making Medical Records Medical records reviewed: Yes I reviewed the patient's medical records. Lab Data Lab results reviewed: Yes I reviewed the patient's lab results. Result diagrams: 10/15/22 14:45 10/15/22 14:45 Labs: Lab Results 10/15/22 10/15/22 10/15/22 Range/Units 14:42 14:43 14:45 WBC 16.3 H (4.5-11.0) X10^3/uL RBC 5.02 (4.5-5.9) X10^6/uL Hgb 15.5 (13.5-17.5) g/dL Hct 48.0 (41-53) % MCV 95.6 (80-100) fL MCH 30.8 (26-34) PG MCHC 32.2 (30-36) % RDW 14.7 (11.6-14.8) % Plt Count 177 (150-400) X10^3/uL Neut % (Auto) 82.8 H (50-75) % Lymph % (Auto) 9.2 L (25-40) % [place] % (Auto) 7.5 (3-14) % Eos % (Auto) 0.1 L (2-4) % Baso % (Auto) 0.4 (0-2) % Neut # (Auto) 04684 H (7198-7056) /uL Lymph # (Auto) 1500 (1404-6600) /uL [place] # (Auto) 1200 H (0-900) /uL Eos # (Auto) 0 (0-450) /uL Baso # (Auto) 100 (0-100) /uL PT (10.1-12.7) SECONDS INR (0.9-1.3) APTT (26-36) SECONDS Sodium (137-145) mmol/L Potassium (3.4-5.1) mmol/L Chloride (98-107) mmol/L Carbon Dioxide (22-32) mmol/L BUN (9-20) mg/dL Creatinine (0.66-1.25) mg/dL Estimated GFR (>60) mL/min BUN/Creatinine Ratio (6-22) Glucose (80-110) mg/dL Lactate 2.7 H (0.7-2.1) mmol/L Calcium (8.4-10.2) mg/dL Magnesium (1.6-2.3) mg/dL Total Bilirubin (0.2-1.3) mg/dL AST (17-59) IU/L ALT (<50) IU/L Alkaline Phosphatase (38-126) U/L Total Creatine Kinase (55-170) U/L CK-MB (CK-2) CK-MB (CK-2) Rel Index Troponin I (0.01-0.034) ng/mL NT-Pro-B Natriuret Pep (<450) pg/mL Total Protein (6.3-8.2) g/dL Albumin (3.5-5.0) g/dL Globulin (1.7-4.1) g/dL Albumin/Globulin Ratio (1.0-2.8) Lipase (23-300) U/L Procalcitonin 0.11 (<0.5) ng/mL SARS-CoV-2 (PCR) (Negative) Influenza A (RT-PCR) (NEGATIVE) Influenza B (RT-PCR) (NEGATIVE) RSV (PCR) (Negative) 10/15/22 10/15/22 10/15/22 Range/Units 14:45 14:45 14:50 WBC (4.5-11.0) X10^3/uL RBC (4.5-5.9) X10^6/uL Hgb (13.5-17.5) g/dL Hct (41-53) % MCV (80-100) fL MCH (26-34) PG MCHC (30-36) % RDW (11.6-14.8) % Plt Count (150-400) X10^3/uL Neut % (Auto) (50-75) % Lymph % (Auto) (25-40) % [place] % (Auto) (3-14) % Eos % (Auto) (2-4) % Baso % (Auto) (0-2) % Neut # (Auto) (6367-8852) /uL Lymph # (Auto) (9725-2052) /uL [place] # (Auto) (0-900) /uL Eos # (Auto) (0-450) /uL Baso # (Auto) (0-100) /uL PT 16.5 H (10.1-12.7) SECONDS INR 1.4 H (0.9-1.3) APTT 30 (26-36) SECONDS Sodium 139 (137-145) mmol/L Potassium 5.1 (3.4-5.1) mmol/L Chloride 99 (98-107) mmol/L Carbon Dioxide 29 (22-32) mmol/L BUN 55 H (9-20) mg/dL Creatinine 2.60 H (0.66-1.25) mg/dL Estimated GFR 24 L (>60) mL/min BUN/Creatinine Ratio 21.2 (6-22) Glucose 240 H (80-110) mg/dL Lactate (0.7-2.1) mmol/L Calcium 9.1 (8.4-10.2) mg/dL Magnesium 2.5 H (1.6-2.3) mg/dL Total Bilirubin 1.2 (0.2-1.3) mg/dL AST 42 (17-59) IU/L ALT 46 (<50) IU/L Alkaline Phosphatase 95 (38-126) U/L Total Creatine Kinase 43 L (55-170) U/L CK-MB (CK-2) TNP CK-MB (CK-2) Rel Index TNP Troponin I < 0.012 (0.01-0.034) ng/mL NT-Pro-B Natriuret Pep 917 H (<450) pg/mL Total Protein 7.6 (6.3-8.2) g/dL Albumin 4.1 (3.5-5.0) g/dL Globulin 3.5 (1.7-4.1) g/dL Albumin/Globulin Ratio 1.2 (1.0-2.8) Lipase 39 (23-300) U/L Procalcitonin (<0.5) ng/mL SARS-CoV-2 (PCR) Negative (Negative) Influenza A (RT-PCR) Flu a negative (NEGATIVE) Influenza B (RT-PCR) Flu b negative (NEGATIVE) RSV (PCR) Negative (Negative) Point of Care Testing Glucose POC 240 Point of care testing: Point of Care Testing Glucose POC 240 Imaging Data Chest x-ray: Radiologist's Impression: [address] [address] XRay Report Signed Patient: Raul Ray MR#: [id number] : 1940 Acct:[id number] Age/Sex: 82 / M Date of Service: 10/15/22 Loc: ED Accession Number: [id number] ?? Procedure: XR chest 1V Ordering Provider: Hudson Martins D.O. PROCEDURE:? XR CHEST 1V ? INDICATIONS:? Shortness of breath ? TECHNIQUE:? One view of the chest was acquired.? ? COMPARISON:? [facility], CR, XR CHEST 1V, 09/18/2022, 17:59. ? FINDINGS:? ? Surgical changes and devices:? Stable left chest wall AICD. ? Lungs and pleura:? Lungs are clear.? No pleural effusions or pneumothorax.? ? Mediastinum:? Mediastinal contours appear normal.? Heart is enlarged. ? Bones and chest wall:? No suspicious bony lesions.? Overlying soft tissues appear unremarkable.? ? IMPRESSION:? No acute cardiopulmonary disease process. ? ? Dictated by: Susanne Borges MD, PhD on 10/15/2022 at 15:21 ? ? Approved by: Susanne Borges MD, PhD on 10/15/2022 at 15:21? ECG Data Attestation: I personally reviewed and interpreted this ECG as follows: Interpretation: Ventricular paced Rate is 73 MDM Narrative Medical decision making narrative: Worsening symptoms over the past couple days. Does have leukocytosis with a left shift. Elevated lactate. Did have a couple systolic blood pressures as were less than 90 however his mean arterial pressure was always greater than 65. This did improve with fluids. Antibiotics administered. Cultures obtained. Do not have a specific source of infection. Not 100% convinced that this is a medication reaction. He stated that he was told the last time that he was here that he had an infection because his white count was elevated but he was told that they did not know where the infection was. He states he does feel better after fluids. Discussed case with Dr. Contreras the Internal Medicine who will admit for further evaluation treatment. Discussed the need for admission with the patient he expressed understanding and agreement as well. Discharge Plan Departure Patient Disposition: Admitted As Inpatient Clinical Impression: Weakness, Leukocytosis, Acute kidney injury
--- NOTE | 2022-10-15 14:44 | DI.RAD.S_ITS ---
PROCEDURE: XR CHEST 1V INDICATIONS: Shortness of breath TECHNIQUE: One view of the chest was acquired. COMPARISON: [facility], CR, XR CHEST 1V, 09/18/2022, 17:59. FINDINGS: Surgical changes and devices: Stable left chest wall AICD. Lungs and pleura: Lungs are clear. No pleural effusions or pneumothorax. Mediastinum: Mediastinal contours appear normal. Heart is enlarged. Bones and chest wall: No suspicious bony lesions. Overlying soft tissues appear unremarkable. IMPRESSION: No acute cardiopulmonary disease process. Dictated by: Susanne Borges MD, PhD on 10/15/2022 at 15:21 Approved by: Susanne Borges MD, PhD on 10/15/2022 at 15:21
[2022-10-15 14:58] LABS: Add Manual Diff / Slide Review NO; Basophils Absolute Auto 100 /uL (0-100); Basophils Percent Auto 0.4 % (0-2); Eosinophils Absolute Auto 0 /uL (0-450); Eosinophils Percent Auto 0.1 % (2-4); Hemoglobin 15.5 g/dL (13.5-17.5); Lymphocytes Absolute Auto 1500 /uL (1100-4500); Lymphocytes Percent Auto 9.2 % (25-40); Mean Corpuscular HGB Conc 32.2 % (30-36); Mean Corpuscular Hemoglobin 30.8 PG (26-34); Mean Corpuscular Volume 95.6 fL (80-100); Monocytes Absolute Auto 1200 /uL (0-900); Monocytes Percent Auto 7.5 % (3-14); Neutrophils Absolute Auto 13500 /uL (1500-7000); Neutrophils Percent Auto 82.8 % (50-75); Platelet Count 177 X10^3/uL (150-400); Red Blood Cell Count 5.02 X10^6/uL (4.5-5.9); Red Cell Distribution Width 14.7 % (11.6-14.8); White Blood Cell Count 16.3 X10^3/uL (4.5-11.0)
[2022-10-15 15:06] LABS: INR 1.4 (0.9-1.3); Prothrombin Time 16.5 SECONDS (10.1-12.7)
[2022-10-15 15:09] LABS: PTT Partial Thromboplastin Tim 30 SECONDS (26-36)
[2022-10-15 15:11] LABS: Alanine Aminotransferase 46 IU/L (<50); Albumin 4.1 g/dL (3.5-5.0); Albumin Globulin Ratio 1.2 (1.0-2.8); Alkaline Phosphatase 95 U/L (38-126); Aspartate Aminotransferase 42 IU/L (17-59); BUN Creatinine Ratio 21.2 (6-22); Bilirubin Total 1.2 mg/dL (0.2-1.3); Blood Urea Nitrogen 55 mg/dL (9-20); Calcium 9.1 mg/dL (8.4-10.2); Carbon Dioxide 29 mmol/L (22-32); Chloride 99 mmol/L (98-107); Creatine Kinase 43 U/L (55-170); Estimated Glomerular Filt Rate 24 mL/min (>60); Globulin 3.5 g/dL (1.7-4.1); Glucose 240 mg/dL (80-110); HEMOLYSIS 24 (0-50); Lipase 39 U/L (23-300); Magnesium 2.5 mg/dL (1.6-2.3); Potassium 5.1 mmol/L (3.4-5.1); Sodium 139 mmol/L (137-145); Total Protein 7.6 g/dL (6.3-8.2)
[2022-10-15 15:19] LABS: Lactate (Lactic Acid) 2.7 mmol/L (0.7-2.1)
[2022-10-15 15:27] LABS: NT-proBNP (BNP-Adult 18+) 917 pg/mL (<450); Troponin I < 0.012 ng/mL (0.01-0.034)
[2022-10-15] MEDS: SODIUM CHLORIDE 0.9% 1,000 ML 1000 ML IV (15:29)
[2022-10-15] MEDS: cefTRIAXone 1,000 MG in SODIUM CHLORIDE 0.9% 100 ML 200 MG IV (15:29)
[2022-10-15 16:00] LABS: Procalcitonin 0.11 ng/mL (<0.5)
[2022-10-15 16:26] LABS: Influenza A - CEPHEID Flu A NEGATIVE (NEGATIVE); Influenza B - CEPHEID Flu B NEGATIVE (NEGATIVE); Respiratory Syncytial Virus Negative (Negative)
[2022-10-15 16:29] LABS: COVID-19 CEPHEID 4-PLEX PCR Negative (Negative)
[2022-10-15] MEDS: SODIUM CHLORIDE 0.9% 1,000 ML 125 ML IV (16:48)
--- NOTE | 2022-10-15 16:52 | PC.NURSE ---
Late entry: 1430. Pt noted to have cap refill of @3-4 seconds. Skin tenting noted. Pt c/o chills. RR noted to be 24-26. HR controlled by medications / paced. Dr. Martins made aware meets septic criteria
[2022-10-15 17:10] LABS: Reflexed Lactate in 2 Hours Y
[2022-10-15] MEDS: LIDOCAINE 2% (GLYDO) 6 ML GEL TOP (17:22)
[2022-10-15] MEDS: VANCOMYCIN 1,250 MG/250 ML PIGGYBACK 250 MG IV (18:11)
[2022-10-15 18:20] LABS: Appearance Urine UA CLEAR; Bilirubin Urine UA NEGATIVE (NEGATIVE); Color Urine UA YELLOW; Glucose Urine UA TRACE g/dL (Negative); Ketones Urine UA NEGATIVE (NEGATIVE); Leukocyte Esterase Urine UA NEGATIVE (NEGATIVE); Nitrite Urine UA NEGATIVE (Negative); Occult Blood Urine UA TRACE-INTACT (Negative); Protein Urine UA 1+ (Negative); Urobilinogen Urine UA 0.2 E.U./dL (0.2)
[2022-10-15 18:43] LABS: Bacteria Urine Occasional (0-1); RBC Urine None Seen (0-5/HPF); Squamous Epithelial Cell Urine 0-1 /HPF (0-5/HPF); WBC Urine 1-5/HPF (0-5/HPF)
[2022-10-15 18:59] LABS: Adenovirus Not Detected (Not Detect); B. parapertussis Not Detected (Not Detecte); Bordetella pertussis Not Detected (Not Detecte); Chlamydophila pneumoniae Not Detected (Not Detect); Coronavirus 229E Not Detected (Not Detect); Coronavirus HKU1 Not Detected (Not Detect); Coronavirus NL 63 Not Detected (Not Detect); Coronavirus OC43 Not Detected (Not Detect); Human Metapneumovirus Not Detected (Not Detect); Human Rhinovirus/Enterovirus Not Detected (Not Detect); Influenza A Not Detected (Not Detect); Influenza B Not Detected (Not Detect); Mycoplasma pneumoniae Not Detected (Not Detect); Parainfluenza Virus 1 Not Detected (Not Detect); Parainfluenza Virus 2 Not Detected (Not Detect); Parainfluenza Virus 3 Not Detected (Not Detect); Parainfluenza Virus 4 Not Detected (Not Detect); Respiratory Syncytial Virus Not Detected (Not Detect); SARS- CoV-2 Not Detected (Not Detecte)
[2022-10-15 19:15] LABS: Lactate 2HR (Lactic Acid Rflx) 1.1 mmol/L (0.7-2.1)
--- NOTE | 2022-10-15 22:10 | PM.CN.EICU ---
History of Present Illness Consult details IF CAMERA ACTIVATED, patient seen via real-time interactive audiovisual communication: Camera activated Date Patient Seen: 10/15/22 Chief complaint: Referred by Cardiology, Bad Reaction Requesting provider: Humza Contreras Consent obtained for tele-valve technician care: Yes Patient Location: ICU Provider location (State): [place] Other participants/roles: Josefa and bedside RN Narrative: Patient is a 82 year old male with history of A fib s/p pacemaker on eliquis and CHF who was recently started on mexilitine a week ago, presenting with generalized weakness. Patient reports taking his schedule lasix as prescribe but has not been eating well due to decrease appetite. Associated with dizziness and dyspnea on exertion. On presentation, labs notable for WBC 16.3, BUN 55, Cr 2.6, NT-BNP 917, and troponin negative. CXR showed no dense consolidation. He was found to be hypotensive which he was started on ceftriaxone/vancomycin and IVF. Admitted to ICU for further management. 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 Mother Leukemia Social History household members: spouse Smoking Status: Former smoker alcohol intake: former Current Medications Current Medications Medications: Home Medications coenzyme Q10 100 mg capsule (CoQ-10) 100 mg PO DAILY ##0 07/15/12 [History Confirmed 10/15/22] rosuvastatin 10 mg tablet (Crestor) 10 mg PO QPM ##0 07/15/12 [History Confirmed 10/15/22] aspirin 81 mg tablet,delayed release 81 mg OR QPM ##0 12/11/17 [History Confirmed 10/15/22] furosemide 40 mg tablet (Lasix) 60 mg PO BID #10 tabs 11/15/18 [Rx Confirmed 10/15/22] apixaban 2.5 mg tablet 2.5 mg PO BID 11/18/18 [History Confirmed 10/15/22] glucosamine [id number] robert 1,500 mg-400 unit-100 mg tablet (Osteo Bi-Flex (5-Loxin)) 1 tab PO BID 11/18/18 [History Confirmed 10/15/22] insulin aspart U-100 100 unit/mL subcutaneous solution 40 - 50 units SUBCUT BID 11/18/18 [History Confirmed 10/15/22] insulin glargine 100 unit/mL subcutaneous solution 25 units SUBCUT BID 11/18/18 [History Confirmed 10/15/22] lisinopril 40 mg tablet 40 mg PO QPM 11/18/18 [History Confirmed 10/15/22] finasteride 5 mg tablet 5 mg PO DAILY 09/18/22 [History Confirmed 10/15/22] sacubitril 49 mg-valsartan 51 mg tablet (Entresto) 1 tab PO DAILY 09/18/22 [History Confirmed 10/15/22] tamsulosin 0.4 mg capsule 0.4 mg PO DAILY 09/18/22 [History Confirmed 10/15/22] metoprolol succinate 200 mg tablet,extended release 24 hr 200 mg PO BID 30 days #60 tabs 09/22/22 [Rx Confirmed 10/15/22] mexiletine 200 mg capsule 200 mg PO TID 30 days #90 caps 09/22/22 [Rx Confirmed 10/15/22] Visit Medications (administered) Generic Name Dose Route Start Last Admin Trade Name Freq PRN Reason Stop Dose Admin Sodium Chloride 1,000 mls @ 125 mls/hr 10/15/22 16:45 10/15/22 19:59 Normal Saline 0.9% IV 125 mls/hr CONT STEPHANI Infusion Vancomycin HCl 1,250 mg in 250 mls @ 250 mls/hr 10/15/22 18:00 10/15/22 20:05 Vancomycin IV Infused Q48H STEPHANI Infusion Exam Vital Signs (past 8 hours): - 10/15/22 14:11 10/15/22 14:29 10/15/22 14:30 Temperature 96.3 F L Pulse Rate 67 71 Respiratory Rate 20 Blood Pressure 116/76 97/60 Pulse Oximetry 98 92 Oxygen Delivery Method Room Air Oxygen Flow Rate 10/15/22 14:30 10/15/22 14:39 10/15/22 14:39 Temperature Pulse Rate 71 78 Respiratory Rate 19 Blood Pressure 112/67 Pulse Oximetry 91 91 Oxygen Delivery Method Oxygen Flow Rate 10/15/22 14:40 10/15/22 14:45 10/15/22 14:50 Temperature Pulse Rate 69 82 78 Respiratory Rate 24 23 23 Blood Pressure Pulse Oximetry 92 93 92 Oxygen Delivery Method Oxygen Flow Rate 10/15/22 14:55 10/15/22 15:00 10/15/22 15:00 Temperature Pulse Rate 69 69 Respiratory Rate 20 18 Blood Pressure 98/57 L Pulse Oximetry 91 91 Oxygen Delivery Method Oxygen Flow Rate 10/15/22 15:05 10/15/22 15:10 10/15/22 15:14 Temperature Pulse Rate 73 71 Respiratory Rate 17 17 Blood Pressure 86/55 L Pulse Oximetry 91 91 Oxygen Delivery Method Oxygen Flow Rate 10/15/22 15:14 10/15/22 15:15 10/15/22 15:17 Temperature Pulse Rate 81 80 Respiratory Rate 25 H 24 Blood Pressure 82/58 L Pulse Oximetry 89 L 89 L Oxygen Delivery Method Oxygen Flow Rate 10/15/22 15:17 10/15/22 15:20 10/15/22 15:20 Temperature Pulse Rate 81 76 Respiratory Rate 22 22 Blood Pressure 92/57 L Pulse Oximetry 92 96 Oxygen Delivery Method Oxygen Flow Rate 10/15/22 15:25 10/15/22 15:25 10/15/22 15:30 Temperature Pulse Rate 69 Respiratory Rate 18 Blood Pressure 92/64 95/57 L Pulse Oximetry 97 Oxygen Delivery Method Oxygen Flow Rate 10/15/22 15:30 10/15/22 15:35 10/15/22 15:35 Temperature Pulse Rate 75 69 Respiratory Rate 16 16 Blood Pressure 100/63 Pulse Oximetry 95 94 Oxygen Delivery Method Oxygen Flow Rate 10/15/22 15:40 10/15/22 15:40 10/15/22 15:45 Temperature Pulse Rate 69 69 Respiratory Rate 16 20 Blood Pressure 103/59 L Pulse Oximetry 95 94 Oxygen Delivery Method Oxygen Flow Rate 10/15/22 15:50 10/15/22 15:51 10/15/22 15:51 Temperature Pulse Rate 73 69 Respiratory Rate 19 15 Blood Pressure 99/49 L Pulse Oximetry 95 95 Oxygen Delivery Method Oxygen Flow Rate 10/15/22 15:55 10/15/22 15:55 10/15/22 16:00 Temperature Pulse Rate 69 Respiratory Rate 14 Blood Pressure 103/56 L 104/55 L Pulse Oximetry 94 Oxygen Delivery Method Oxygen Flow Rate 10/15/22 16:00 10/15/22 16:05 10/15/22 16:05 Temperature Pulse Rate 69 69 Respiratory Rate 15 17 Blood Pressure 100/59 L Pulse Oximetry 95 94 Oxygen Delivery Method Oxygen Flow Rate 10/15/22 16:10 10/15/22 16:11 10/15/22 16:15 Temperature Pulse Rate 73 72 Respiratory Rate 20 23 Blood Pressure 99/56 L Pulse Oximetry 96 94 Oxygen Delivery Method Oxygen Flow Rate 10/15/22 16:15 10/15/22 16:20 10/15/22 16:20 Temperature Pulse Rate 71 70 Respiratory Rate 20 16 Blood Pressure 101/59 L Pulse Oximetry 95 96 Oxygen Delivery Method Oxygen Flow Rate 10/15/22 16:25 10/15/22 16:25 10/15/22 16:30 Temperature Pulse Rate 71 Respiratory Rate 16 Blood Pressure 104/59 L 97/55 L Pulse Oximetry 95 Oxygen Delivery Method Oxygen Flow Rate 10/15/22 16:30 10/15/22 16:33 10/15/22 16:33 Temperature Pulse Rate 86 70 Respiratory Rate 23 20 Blood Pressure 110/54 L Pulse Oximetry 96 97 Oxygen Delivery Method Oxygen Flow Rate 10/15/22 16:35 10/15/22 16:35 10/15/22 16:40 Temperature Pulse Rate 69 Respiratory Rate 17 Blood Pressure 109/59 L 100/55 L Pulse Oximetry 97 Oxygen Delivery Method Oxygen Flow Rate 10/15/22 16:40 10/15/22 16:45 10/15/22 16:45 Temperature Pulse Rate 69 69 Respiratory Rate 17 23 Blood Pressure 101/56 L Pulse Oximetry 97 97 Oxygen Delivery Method Oxygen Flow Rate 10/15/22 16:50 10/15/22 16:50 10/15/22 16:55 Temperature Pulse Rate 72 Respiratory Rate 16 Blood Pressure 108/56 L 105/57 L Pulse Oximetry 97 Oxygen Delivery Method Oxygen Flow Rate 10/15/22 16:55 10/15/22 17:00 10/15/22 17:00 Temperature Pulse Rate 70 73 Respiratory Rate 15 17 Blood Pressure 107/56 L Pulse Oximetry 96 97 Oxygen Delivery Method Oxygen Flow Rate 10/15/22 17:05 10/15/22 17:05 10/15/22 17:10 Temperature Pulse Rate 74 Respiratory Rate 14 Blood Pressure 103/58 L 96/53 L Pulse Oximetry 96 Oxygen Delivery Method Oxygen Flow Rate 10/15/22 17:10 10/15/22 17:15 10/15/22 17:15 Temperature Pulse Rate 73 69 Respiratory Rate 16 21 Blood Pressure 100/51 L Pulse Oximetry 97 97 Oxygen Delivery Method Oxygen Flow Rate 10/15/22 17:20 10/15/22 17:20 10/15/22 17:25 Temperature 95.2 F L Pulse Rate 72 Respiratory Rate 24 Blood Pressure 100/59 L 109/65 Pulse Oximetry 97 Oxygen Delivery Method Oxygen Flow Rate 10/15/22 17:25 10/15/22 17:30 10/15/22 17:30 Temperature 95.7 F L 96.1 F L Pulse Rate 71 75 Respiratory Rate 20 15 Blood Pressure 107/57 L Pulse Oximetry 96 97 Oxygen Delivery Method Room Air Oxygen Flow Rate 10/15/22 17:35 10/15/22 17:35 10/15/22 17:40 Temperature 96.4 F L Pulse Rate 71 Respiratory Rate 19 Blood Pressure 109/57 L 105/56 L Pulse Oximetry 97 Oxygen Delivery Method Oxygen Flow Rate 10/15/22 17:40 10/15/22 17:45 10/15/22 17:45 Temperature 96.4 F L 96.6 F L Pulse Rate 73 70 Respiratory Rate 15 17 Blood Pressure 102/55 L Pulse Oximetry 97 96 Oxygen Delivery Method Oxygen Flow Rate 10/15/22 17:50 10/15/22 17:51 10/15/22 17:51 Temperature 96.6 F L 96.6 F L Pulse Rate 73 70 Respiratory Rate 17 Blood Pressure 96/61 Pulse Oximetry 95 97 Oxygen Delivery Method Oxygen Flow Rate 10/15/22 17:55 10/15/22 17:56 10/15/22 17:56 Temperature 96.8 F L 96.8 F L Pulse Rate 76 69 Respiratory Rate 22 23 Blood Pressure 99/62 Pulse Oximetry 96 96 Oxygen Delivery Method Oxygen Flow Rate 10/15/22 18:00 10/15/22 18:04 10/15/22 18:04 Temperature 96.8 F L 96.8 F L Pulse Rate 165 H 69 Respiratory Rate 18 Blood Pressure 95/50 L Pulse Oximetry 96 95 Oxygen Delivery Method Oxygen Flow Rate 10/15/22 18:05 10/15/22 18:05 10/15/22 18:10 Temperature 96.8 F L Pulse Rate 76 Respiratory Rate 20 Blood Pressure 106/55 L 103/60 Pulse Oximetry 97 Oxygen Delivery Method Oxygen Flow Rate 10/15/22 18:10 10/15/22 18:15 10/15/22 18:15 Temperature 97.0 F L 97.0 F L Pulse Rate 71 69 Respiratory Rate 18 15 Blood Pressure 120/58 L Pulse Oximetry 97 97 Oxygen Delivery Method Oxygen Flow Rate 10/15/22 18:20 10/15/22 18:20 10/15/22 18:25 Temperature 97.0 F L Pulse Rate 69 Respiratory Rate 15 Blood Pressure 111/57 L 108/57 L Pulse Oximetry 97 Oxygen Delivery Method Oxygen Flow Rate 10/15/22 18:25 10/15/22 18:30 10/15/22 18:30 Temperature 97.0 F L 97.0 F L Pulse Rate 69 69 Respiratory Rate 14 15 Blood Pressure 105/52 L Pulse Oximetry 98 95 Oxygen Delivery Method Oxygen Flow Rate 10/15/22 18:35 10/15/22 18:35 10/15/22 18:40 Temperature 97.2 F L Pulse Rate 69 Respiratory Rate 15 Blood Pressure 101/51 L 103/56 L Pulse Oximetry 96 Oxygen Delivery Method Oxygen Flow Rate 10/15/22 18:40 10/15/22 18:45 10/15/22 18:48 Temperature 97.2 F L 97.2 F L Pulse Rate 69 76 Respiratory Rate 20 22 Blood Pressure 96/58 L Pulse Oximetry 96 97 Oxygen Delivery Method Oxygen Flow Rate 10/15/22 18:48 10/15/22 19:30 10/15/22 21:24 Temperature 97.2 F L 97.3 F L 97.7 F Pulse Rate 69 66 77 Respiratory Rate 18 27 H Blood Pressure 90/52 L Pulse Oximetry 97 99 93 Oxygen Delivery Method Oxygen Flow Rate 0 10/15/22 21:25 10/15/22 21:25 Temperature 97.7 F Pulse Rate 79 Respiratory Rate 22 Blood Pressure 91/54 L Pulse Oximetry 93 Oxygen Delivery Method Oxygen Flow Rate Oxygen Delivery Method Room Air Oxygen Flow Rate 0 Narrative Exam Narrative: Chronically ill appearing; speaking in full sentence Objective Labs Result Diagrams: 10/15/22 14:45 10/15/22 14:45 Labs: Laboratory Results - last 24 hr 10/15/22 10/15/22 10/15/22 14:42 14:43 14:45 WBC 16.3 H RBC 5.02 Hgb 15.5 Hct 48.0 MCV 95.6 MCH 30.8 MCHC 32.2 RDW 14.7 Plt Count 177 Neut % (Auto) 82.8 H Lymph % (Auto) 9.2 L [place] % (Auto) 7.5 Eos % (Auto) 0.1 L Baso % (Auto) 0.4 Neut # (Auto) 32728 H Lymph # (Auto) 1500 [place] # (Auto) 1200 H Eos # (Auto) 0 Baso # (Auto) 100 PT INR APTT Sodium Potassium Chloride Carbon Dioxide BUN Creatinine Estimated GFR BUN/Creatinine Ratio Glucose Lactate 2.7 H Calcium Magnesium Total Bilirubin AST ALT Alkaline Phosphatase Total Creatine Kinase CK-MB (CK-2) CK-MB (CK-2) Rel Index Troponin I NT-Pro-B Natriuret Pep Total Protein Albumin Globulin Albumin/Globulin Ratio Lipase Procalcitonin 0.11 Urine Color Urine Appearance Urine pH Ur Specific [place] Urine Protein Urine Glucose (UA) Urine Ketones Urine Occult Blood Urine Nitrate Urine Bilirubin Urine Urobilinogen Ur Leukocyte Esterase Urine RBC Urine WBC Ur Squamous Epith Cells Urine Bacteria Chlamy pneumoniae PCR Adenovirus (PCR) B. pertussis DNA (PCR) B.parapertussis DNA PCR Coronavirus OC43 (PCR) Coronavirus HKU1 (PCR) Coronavirus 229E (PCR) SARS-CoV-2 (PCR) Coronavirus NL63 (PCR) Human Metapneumovir PCR Influenza A (RT-PCR) Influenza Type A (PCR) Influenza B (RT-PCR) Influenza Type B (PCR) M. pneumoniae (PCR) Parainfluenza 1 (PCR) Parainfluenza 2 (PCR) Parainfluenza 3 (PCR) Parainfluenza 4 (PCR) RSV (PCR) Entero/Rhino (PCR) 10/15/22 10/15/22 10/15/22 14:45 14:45 14:50 WBC RBC Hgb Hct MCV MCH MCHC RDW Plt Count Neut % (Auto) Lymph % (Auto) [place] % (Auto) Eos % (Auto) Baso % (Auto) Neut # (Auto) Lymph # (Auto) [place] # (Auto) Eos # (Auto) Baso # (Auto) PT 16.5 H INR 1.4 H APTT 30 Sodium 139 Potassium 5.1 Chloride 99 Carbon Dioxide 29 BUN 55 H Creatinine 2.60 H Estimated GFR 24 L BUN/Creatinine Ratio 21.2 Glucose 240 H Lactate Calcium 9.1 Magnesium 2.5 H Total Bilirubin 1.2 AST 42 ALT 46 Alkaline Phosphatase 95 Total Creatine Kinase 43 L CK-MB (CK-2) TNP CK-MB (CK-2) Rel Index TNP Troponin I < 0.012 NT-Pro-B Natriuret Pep 917 H Total Protein 7.6 Albumin 4.1 Globulin 3.5 Albumin/Globulin Ratio 1.2 Lipase 39 Procalcitonin Urine Color Urine Appearance Urine pH Ur Specific [place] Urine Protein Urine Glucose (UA) Urine Ketones Urine Occult Blood Urine Nitrate Urine Bilirubin Urine Urobilinogen Ur Leukocyte Esterase Urine RBC Urine WBC Ur Squamous Epith Cells Urine Bacteria Chlamy pneumoniae PCR Adenovirus (PCR) B. pertussis DNA (PCR) B.parapertussis DNA PCR Coronavirus OC43 (PCR) Coronavirus HKU1 (PCR) Coronavirus 229E (PCR) SARS-CoV-2 (PCR) Negative Coronavirus NL63 (PCR) Human Metapneumovir PCR Influenza A (RT-PCR) Flu a negative Influenza Type A (PCR) Influenza B (RT-PCR) Flu b negative Influenza Type B (PCR) M. pneumoniae (PCR) Parainfluenza 1 (PCR) Parainfluenza 2 (PCR) Parainfluenza 3 (PCR) Parainfluenza 4 (PCR) RSV (PCR) Negative Entero/Rhino (PCR) 10/15/22 10/15/22 10/15/22 17:20 17:53 18:50 WBC RBC Hgb Hct MCV MCH MCHC RDW Plt Count Neut % (Auto) Lymph % (Auto) [place] % (Auto) Eos % (Auto) Baso % (Auto) Neut # (Auto) Lymph # (Auto) [place] # (Auto) Eos # (Auto) Baso # (Auto) PT INR APTT Sodium Potassium Chloride Carbon Dioxide BUN Creatinine Estimated GFR BUN/Creatinine Ratio Glucose Lactate 1.1 Calcium Magnesium Total Bilirubin AST ALT Alkaline Phosphatase Total Creatine Kinase CK-MB (CK-2) CK-MB (CK-2) Rel Index Troponin I NT-Pro-B Natriuret Pep Total Protein Albumin Globulin Albumin/Globulin Ratio Lipase Procalcitonin Urine Color Yellow Urine Appearance Clear Urine pH 5.0 Ur Specific [place] 1.020 Urine Protein 1+ H Urine Glucose (UA) Trace H Urine Ketones Negative Urine Occult Blood Trace-intact Urine Nitrate Negative Urine Bilirubin Negative Urine Urobilinogen 0.2 Ur Leukocyte Esterase Negative Urine RBC None seen Urine WBC 1-5/hpf Ur Squamous Epith Cells 0-1 /hpf Urine Bacteria Occasional (0-1) Chlamy pneumoniae PCR Not detected Adenovirus (PCR) Not detected B. pertussis DNA (PCR) Not detected B.parapertussis DNA PCR Not detected Coronavirus OC43 (PCR) Not detected Coronavirus HKU1 (PCR) Not detected Coronavirus 229E (PCR) Not detected SARS-CoV-2 (PCR) Not detected Coronavirus NL63 (PCR) Not detected Human Metapneumovir PCR Not detected Influenza A (RT-PCR) Influenza Type A (PCR) Not detected Influenza B (RT-PCR) Influenza Type B (PCR) Not detected M. pneumoniae (PCR) Not detected Parainfluenza 1 (PCR) Not detected Parainfluenza 2 (PCR) Not detected Parainfluenza 3 (PCR) Not detected Parainfluenza 4 (PCR) Not detected RSV (PCR) Not detected Entero/Rhino (PCR) Not detected Assessment & Plan Assessment & Plan narrative: NEURO: -- On fall precaution -- Needs PT/OT consultation RESP: -- On room air -- Encourage IS and OOB as tolerated CVS: # Hx of VT -- Currently intermittent V paced -- Cont holding mexilitine -- High lytes goal -- Monitor on telemetry -- Cardiology consultation # Hx of CHF -- Appears hypovolemia based on lab findings -- Strict I/O -- Cont gentle hydration -- Low Na diet # Hx of HTN -- Hold all BP meds due to hypotension # Hypotension -- Secondary to dehydration vs sepsis -- Cont gentle hydration -- Cont holding BP meds -- MAP goal > 65 : # AZAR on CKD -- Baseline Cr 1.8 -- Cont IVF -- Avoid nephrotoxin agents -- Cont holding Marta-I -- Monitor UOP -- Daily BMP ID: # Sepsis -- Concern for cellulitis per RN report -- On ceftriaxone -- DC vancomycin due keagan AZAR -- Added linezolid for MRSA coverage -- Follow up cx data ENDO: # Hyperglycemia -- Hx of DM -- On lantus and ISS -- Goal BS < 180 D/w JERRICA Whittington at bedside. Time Spent With Patient Critical Care time: I spent a total of 32 minutes of critical care time on this patient's care today; this time is exclusive of procedural time.
[2022-10-15] MEDS: SODIUM CHLORIDE 0.9% 500 ML 1000 ML IV (22:30)
[2022-10-16] VITALS (87 sets, daily range): BP systolic 87–110; BP diastolic 52–61; PULSE 69–89; RESP 12–31; TEMP 36.4–37.3; O2SAT 89–98
[2022-10-16] MEDS: LINEZOLID 600 MG/300 ML IV.SOLN IV (00:14)
--- NOTE | 2022-10-16 00:57 | PC.NURSE ---
Addendum entered by Yane Perez R.N. 10/16/22 06:35: Patient dozed after admit to ICU, BP stable, see vital trends, 625ml UOP, lópez with pink tinge, denies pain. Original Note: Night Note-Patient transferred to ICU room 228 from [place] [address], [place], able to move beds on own. Initial BP 98/70(80), takin Q30min, V-paced 70s, RR 18, SpO2 98% on RA, does have coarse crackles LLL, denies shortness of breath, chest pain, or dizziness, afebrile via temp probe with Francisco catheter. Tele-Residential Recycle Driver consulted, NS 500ml bolus ordered by Hospitalist.
[2022-10-16 01:02] LABS: Alanine Aminotransferase 36 IU/L (<50); Albumin 3.2 g/dL (3.5-5.0); Albumin Globulin Ratio 1.2 (1.0-2.8); Alkaline Phosphatase 76 U/L (38-126); Aspartate Aminotransferase 27 IU/L (17-59); BUN Creatinine Ratio 22.7 (6-22); Bilirubin Total 0.8 mg/dL (0.2-1.3); Blood Urea Nitrogen 47 mg/dL (9-20); Calcium 7.6 mg/dL (8.4-10.2); Carbon Dioxide 21 mmol/L (22-32); Chloride 109 mmol/L (98-107); Estimated Glomerular Filt Rate 31 mL/min (>60); Globulin 2.7 g/dL (1.7-4.1); Glucose 220 mg/dL (80-110); HEMOLYSIS 19 (0-50); Magnesium 2.2 mg/dL (1.6-2.3); Potassium 4.5 mmol/L (3.4-5.1); Sodium 138 mmol/L (137-145); Total Protein 5.9 g/dL (6.3-8.2)
--- NOTE | 2022-10-16 07:34 | PM.PN.1 ---
Exam Vital Signs (past 8 hours): - 10/15/22 23:35 10/15/22 23:40 10/16/22 00:00 Temperature 97.7 F 97.7 F Pulse Rate 70 70 Respiratory Rate 14 15 Blood Pressure Pulse Oximetry 97 97 Oxygen Delivery Method Room Air 10/15/22 23:45 10/15/22 23:50 10/15/22 23:55 Temperature 97.7 F 97.7 F 97.7 F Pulse Rate 69 71 71 Respiratory Rate 15 13 16 Blood Pressure Pulse Oximetry 97 97 98 Oxygen Delivery Method 10/16/22 00:00 10/16/22 00:01 10/16/22 00:01 Temperature 97.7 F 97.7 F Pulse Rate 69 69 Respiratory Rate 13 12 Blood Pressure 102/59 L Pulse Oximetry 98 97 Oxygen Delivery Method 10/16/22 00:05 10/16/22 00:10 10/16/22 00:15 Temperature 97.7 F 97.7 F 97.7 F Pulse Rate 73 69 69 Respiratory Rate 21 15 16 Blood Pressure Pulse Oximetry 96 97 96 Oxygen Delivery Method 10/16/22 00:20 10/16/22 00:25 10/16/22 00:30 Temperature 97.7 F 97.7 F Pulse Rate 73 71 Respiratory Rate 24 17 Blood Pressure 94/57 L Pulse Oximetry 97 97 Oxygen Delivery Method 10/16/22 00:30 10/16/22 00:35 10/16/22 00:40 Temperature 97.7 F 97.7 F 97.7 F Pulse Rate 69 69 69 Respiratory Rate 17 16 15 Blood Pressure Pulse Oximetry 97 97 97 Oxygen Delivery Method 10/16/22 00:45 10/16/22 00:50 10/16/22 00:55 Temperature 97.7 F 97.7 F 97.5 F L Pulse Rate 69 69 73 Respiratory Rate 19 19 31 H Blood Pressure Pulse Oximetry 97 97 96 Oxygen Delivery Method 10/16/22 01:00 10/16/22 01:00 10/16/22 01:05 Temperature 97.5 F L 97.5 F L Pulse Rate 69 70 Respiratory Rate 16 17 Blood Pressure 105/59 L Pulse Oximetry 97 97 Oxygen Delivery Method 10/16/22 01:10 10/16/22 01:15 10/16/22 01:20 Temperature 97.5 F L 97.5 F L 97.5 F L Pulse Rate 72 69 70 Respiratory Rate 15 16 15 Blood Pressure Pulse Oximetry 96 97 97 Oxygen Delivery Method 10/16/22 01:25 10/16/22 01:30 10/16/22 01:30 Temperature 97.5 F L 97.5 F L Pulse Rate 69 70 Respiratory Rate 16 16 Blood Pressure 105/56 L Pulse Oximetry 96 95 Oxygen Delivery Method 10/16/22 01:35 10/16/22 01:40 10/16/22 01:45 Temperature 97.5 F L 97.5 F L 97.5 F L Pulse Rate 69 69 70 Respiratory Rate 19 18 16 Blood Pressure Pulse Oximetry 96 96 96 Oxygen Delivery Method 10/16/22 01:50 10/16/22 01:55 10/16/22 02:00 Temperature 97.5 F L 97.5 F L Pulse Rate 69 70 Respiratory Rate 16 16 Blood Pressure 101/59 L Pulse Oximetry 96 96 Oxygen Delivery Method 10/16/22 02:00 10/16/22 02:05 10/16/22 02:10 Temperature 97.5 F L 97.5 F L 97.5 F L Pulse Rate 69 70 71 Respiratory Rate 17 18 17 Blood Pressure Pulse Oximetry 97 95 94 Oxygen Delivery Method 10/16/22 02:15 10/16/22 02:20 10/16/22 02:25 Temperature 97.5 F L 97.5 F L 97.5 F L Pulse Rate 69 69 69 Respiratory Rate 16 16 16 Blood Pressure Pulse Oximetry 93 93 92 Oxygen Delivery Method 10/16/22 02:30 10/16/22 02:30 10/16/22 02:35 Temperature 97.5 F L 97.5 F L Pulse Rate 73 69 Respiratory Rate 16 18 Blood Pressure 87/57 L Pulse Oximetry 90 L 90 L Oxygen Delivery Method 10/16/22 02:40 10/16/22 02:45 10/16/22 02:50 Temperature 97.5 F L 97.5 F L 97.5 F L Pulse Rate 69 69 69 Respiratory Rate 16 16 14 Blood Pressure Pulse Oximetry 92 91 91 Oxygen Delivery Method 10/16/22 02:55 10/16/22 03:00 10/16/22 03:01 Temperature 97.5 F L 97.5 F L 97.5 F L Pulse Rate 70 70 69 Respiratory Rate 15 12 12 Blood Pressure Pulse Oximetry 91 92 91 Oxygen Delivery Method 10/16/22 03:01 10/16/22 03:05 10/16/22 03:10 Temperature 97.5 F L 97.7 F Pulse Rate 69 69 Respiratory Rate 17 17 Blood Pressure 97/54 L Pulse Oximetry 90 L 91 Oxygen Delivery Method 10/16/22 03:15 10/16/22 04:00 10/16/22 03:20 Temperature 97.7 F 97.5 F L Pulse Rate 74 74 Respiratory Rate 15 15 Blood Pressure Pulse Oximetry 90 L 91 Oxygen Delivery Method Room Air Nasal Cannula 10/16/22 03:25 10/16/22 03:30 10/16/22 03:30 Temperature 97.5 F L 97.7 F Pulse Rate 75 74 Respiratory Rate 15 15 Blood Pressure 103/58 L Pulse Oximetry 94 93 Oxygen Delivery Method 10/16/22 03:35 10/16/22 03:40 10/16/22 03:45 Temperature 97.7 F 97.7 F 97.7 F Pulse Rate 69 70 70 Respiratory Rate 17 15 16 Blood Pressure Pulse Oximetry 94 95 95 Oxygen Delivery Method 10/16/22 03:50 10/16/22 03:55 10/16/22 04:00 Temperature 97.7 F 97.7 F Pulse Rate 69 69 Respiratory Rate 18 14 Blood Pressure 105/61 Pulse Oximetry 95 95 Oxygen Delivery Method 10/16/22 04:00 10/16/22 04:05 10/16/22 04:10 Temperature 97.7 F 97.7 F 97.7 F Pulse Rate 72 70 72 Respiratory Rate 19 17 16 Blood Pressure Pulse Oximetry 97 98 98 Oxygen Delivery Method 10/16/22 04:15 10/16/22 04:20 10/16/22 04:25 Temperature 97.7 F 97.7 F 97.7 F Pulse Rate 69 69 69 Respiratory Rate 16 18 15 Blood Pressure Pulse Oximetry 98 97 97 Oxygen Delivery Method 10/16/22 04:30 10/16/22 04:30 10/16/22 04:35 Temperature 97.7 F 97.7 F Pulse Rate 69 72 Respiratory Rate 16 15 Blood Pressure 107/60 Pulse Oximetry 96 97 Oxygen Delivery Method 10/16/22 04:40 10/16/22 04:45 10/16/22 04:50 Temperature 97.7 F 97.7 F 97.7 F Pulse Rate 70 71 70 Respiratory Rate 17 15 16 Blood Pressure Pulse Oximetry 96 96 96 Oxygen Delivery Method 10/16/22 04:55 10/16/22 05:00 10/16/22 05:00 Temperature 97.7 F 97.7 F Pulse Rate 69 69 Respiratory Rate 15 15 Blood Pressure 101/59 L Pulse Oximetry 95 95 Oxygen Delivery Method 10/16/22 05:05 10/16/22 05:15 10/16/22 05:30 Temperature 97.7 F 97.7 F Pulse Rate 71 69 Respiratory Rate 16 15 Blood Pressure 97/54 L Pulse Oximetry 96 97 Oxygen Delivery Method 10/16/22 05:30 10/16/22 05:45 10/16/22 06:00 Temperature 97.9 F 97.9 F Pulse Rate 69 69 Respiratory Rate 15 17 Blood Pressure 103/56 L Pulse Oximetry 98 95 Oxygen Delivery Method 10/16/22 06:00 10/16/22 06:15 Temperature 97.9 F 97.9 F Pulse Rate 69 76 Respiratory Rate 15 23 Blood Pressure Pulse Oximetry 97 98 Oxygen Delivery Method Oxygen Delivery Method Room Air,Nasal Cannula Oxygen Flow Rate 0 Objective Labs Result Diagrams: 10/15/22 14:45 10/16/22 00:45 Labs: Laboratory Results - last 24 hr 10/15/22 10/15/22 10/15/22 14:42 14:43 14:45 WBC 16.3 H RBC 5.02 Hgb 15.5 Hct 48.0 MCV 95.6 MCH 30.8 MCHC 32.2 RDW 14.7 Plt Count 177 Neut % (Auto) 82.8 H Lymph % (Auto) 9.2 L [place] % (Auto) 7.5 Eos % (Auto) 0.1 L Baso % (Auto) 0.4 Neut # (Auto) 20634 H Lymph # (Auto) 1500 [place] # (Auto) 1200 H Eos # (Auto) 0 Baso # (Auto) 100 PT INR APTT Sodium Potassium Chloride Carbon Dioxide BUN Creatinine Estimated GFR BUN/Creatinine Ratio Glucose Lactate 2.7 H Calcium Magnesium Total Bilirubin AST ALT Alkaline Phosphatase Total Creatine Kinase CK-MB (CK-2) CK-MB (CK-2) Rel Index Troponin I NT-Pro-B Natriuret Pep Total Protein Albumin Globulin Albumin/Globulin Ratio Lipase Procalcitonin 0.11 Urine Color Urine Appearance Urine pH Ur Specific [place] Urine Protein Urine Glucose (UA) Urine Ketones Urine Occult Blood Urine Nitrate Urine Bilirubin Urine Urobilinogen Ur Leukocyte Esterase Urine RBC Urine WBC Ur Squamous Epith Cells Urine Bacteria Nasal Screen MRSA (PCR) Chlamy pneumoniae PCR Adenovirus (PCR) B. pertussis DNA (PCR) B.parapertussis DNA PCR Coronavirus OC43 (PCR) Coronavirus HKU1 (PCR) Coronavirus 229E (PCR) SARS-CoV-2 (PCR) Coronavirus NL63 (PCR) Human Metapneumovir PCR Influenza A (RT-PCR) Influenza Type A (PCR) Influenza B (RT-PCR) Influenza Type B (PCR) M. pneumoniae (PCR) Parainfluenza 1 (PCR) Parainfluenza 2 (PCR) Parainfluenza 3 (PCR) Parainfluenza 4 (PCR) RSV (PCR) Entero/Rhino (PCR) 10/15/22 10/15/22 10/15/22 14:45 14:45 14:50 WBC RBC Hgb Hct MCV MCH MCHC RDW Plt Count Neut % (Auto) Lymph % (Auto) [place] % (Auto) Eos % (Auto) Baso % (Auto) Neut # (Auto) Lymph # (Auto) [place] # (Auto) Eos # (Auto) Baso # (Auto) PT 16.5 H INR 1.4 H APTT 30 Sodium 139 Potassium 5.1 Chloride 99 Carbon Dioxide 29 BUN 55 H Creatinine 2.60 H Estimated GFR 24 L BUN/Creatinine Ratio 21.2 Glucose 240 H Lactate Calcium 9.1 Magnesium 2.5 H Total Bilirubin 1.2 AST 42 ALT 46 Alkaline Phosphatase 95 Total Creatine Kinase 43 L CK-MB (CK-2) TNP CK-MB (CK-2) Rel Index TNP Troponin I < 0.012 NT-Pro-B Natriuret Pep 917 H Total Protein 7.6 Albumin 4.1 Globulin 3.5 Albumin/Globulin Ratio 1.2 Lipase 39 Procalcitonin Urine Color Urine Appearance Urine pH Ur Specific [place] Urine Protein Urine Glucose (UA) Urine Ketones Urine Occult Blood Urine Nitrate Urine Bilirubin Urine Urobilinogen Ur Leukocyte Esterase Urine RBC Urine WBC Ur Squamous Epith Cells Urine Bacteria Nasal Screen MRSA (PCR) Chlamy pneumoniae PCR Adenovirus (PCR) B. pertussis DNA (PCR) B.parapertussis DNA PCR Coronavirus OC43 (PCR) Coronavirus HKU1 (PCR) Coronavirus 229E (PCR) SARS-CoV-2 (PCR) Negative Coronavirus NL63 (PCR) Human Metapneumovir PCR Influenza A (RT-PCR) Flu a negative Influenza Type A (PCR) Influenza B (RT-PCR) Flu b negative Influenza Type B (PCR) M. pneumoniae (PCR) Parainfluenza 1 (PCR) Parainfluenza 2 (PCR) Parainfluenza 3 (PCR) Parainfluenza 4 (PCR) RSV (PCR) Negative Entero/Rhino (PCR) 10/15/22 10/15/22 10/15/22 17:20 17:53 18:50 WBC RBC Hgb Hct MCV MCH MCHC RDW Plt Count Neut % (Auto) Lymph % (Auto) [place] % (Auto) Eos % (Auto) Baso % (Auto) Neut # (Auto) Lymph # (Auto) [place] # (Auto) Eos # (Auto) Baso # (Auto) PT INR APTT Sodium Potassium Chloride Carbon Dioxide BUN Creatinine Estimated GFR BUN/Creatinine Ratio Glucose Lactate 1.1 Calcium Magnesium Total Bilirubin AST ALT Alkaline Phosphatase Total Creatine Kinase CK-MB (CK-2) CK-MB (CK-2) Rel Index Troponin I NT-Pro-B Natriuret Pep Total Protein Albumin Globulin Albumin/Globulin Ratio Lipase Procalcitonin Urine Color Yellow Urine Appearance Clear Urine pH 5.0 Ur Specific [place] 1.020 Urine Protein 1+ H Urine Glucose (UA) Trace H Urine Ketones Negative Urine Occult Blood Trace-intact Urine Nitrate Negative Urine Bilirubin Negative Urine Urobilinogen 0.2 Ur Leukocyte Esterase Negative Urine RBC None seen Urine WBC 1-5/hpf Ur Squamous Epith Cells 0-1 /hpf Urine Bacteria Occasional (0-1) Nasal Screen MRSA (PCR) Chlamy pneumoniae PCR Not detected Adenovirus (PCR) Not detected B. pertussis DNA (PCR) Not detected B.parapertussis DNA PCR Not detected Coronavirus OC43 (PCR) Not detected Coronavirus HKU1 (PCR) Not detected Coronavirus 229E (PCR) Not detected SARS-CoV-2 (PCR) Not detected Coronavirus NL63 (PCR) Not detected Human Metapneumovir PCR Not detected Influenza A (RT-PCR) Influenza Type A (PCR) Not detected Influenza B (RT-PCR) Influenza Type B (PCR) Not detected M. pneumoniae (PCR) Not detected Parainfluenza 1 (PCR) Not detected Parainfluenza 2 (PCR) Not detected Parainfluenza 3 (PCR) Not detected Parainfluenza 4 (PCR) Not detected RSV (PCR) Not detected Entero/Rhino (PCR) Not detected 10/15/22 10/16/22 21:35 00:45 WBC RBC Hgb Hct MCV MCH MCHC RDW Plt Count Neut % (Auto) Lymph % (Auto) [place] % (Auto) Eos % (Auto) Baso % (Auto) Neut # (Auto) Lymph # (Auto) [place] # (Auto) Eos # (Auto) Baso # (Auto) PT INR APTT Sodium 138 Potassium 4.5 Chloride 109 H Carbon Dioxide 21 L BUN 47 H Creatinine 2.07 H Estimated GFR 31 L BUN/Creatinine Ratio 22.7 H Glucose 220 H Lactate Calcium 7.6 L Magnesium 2.2 Total Bilirubin 0.8 AST 27 ALT 36 Alkaline Phosphatase 76 Total Creatine Kinase CK-MB (CK-2) CK-MB (CK-2) Rel Index Troponin I NT-Pro-B Natriuret Pep Total Protein 5.9 L Albumin 3.2 L Globulin 2.7 Albumin/Globulin Ratio 1.2 Lipase Procalcitonin Urine Color Urine Appearance Urine pH Ur Specific [place] Urine Protein Urine Glucose (UA) Urine Ketones Urine Occult Blood Urine Nitrate Urine Bilirubin Urine Urobilinogen Ur Leukocyte Esterase Urine RBC Urine WBC Ur Squamous Epith Cells Urine Bacteria Nasal Screen MRSA (PCR) Negative for mrsa Chlamy pneumoniae PCR Adenovirus (PCR) B. pertussis DNA (PCR) B.parapertussis DNA PCR Coronavirus OC43 (PCR) Coronavirus HKU1 (PCR) Coronavirus 229E (PCR) SARS-CoV-2 (PCR) Coronavirus NL63 (PCR) Human Metapneumovir PCR Influenza A (RT-PCR) Influenza Type A (PCR) Influenza B (RT-PCR) Influenza Type B (PCR) M. pneumoniae (PCR) Parainfluenza 1 (PCR) Parainfluenza 2 (PCR) Parainfluenza 3 (PCR) Parainfluenza 4 (PCR) RSV (PCR) Entero/Rhino (PCR) FORMERLY [facility], [facility]–1983 Medical History (Updated 10/15/22 @ 17:23 by Hudson Martins DO) Atrial fibrillation Hyperlipidemia Hypertension Ischemic cardiomyopathy Myocardial infarction Obesity Obstructive sleep apnea of adult Primary insomnia Snoring Type 2 diabetes mellitus Surgical History History of cholecystectomy History of ERCP History of hernia repair History of left knee replacement History of partial knee replacement History of resection of 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 Mother Leukemia Social History household members: spouse Smoking Status: Former smoker alcohol intake: former Assessment & Plan Time Spent With Patient Critical Care time: I spent a total of [] minutes of critical care time on this patient's care today; this time is exclusive of procedural time. Quality VTE Deep Vein Thrombosis/Pulmonary Embolism Present on Admission: No
[2022-10-16 08:20] LABS: Add Manual Diff / Slide Review NO; Basophils Absolute Auto 100 /uL (0-100); Basophils Percent Auto 0.8 % (0-2); Eosinophils Absolute Auto 100 /uL (0-450); Eosinophils Percent Auto 0.6 % (2-4); Hematocrit 44.6 % (41-53); Hemoglobin 14.5 g/dL (13.5-17.5); Lymphocytes Absolute Auto 1700 /uL (1100-4500); Mean Corpuscular HGB Conc 32.4 % (30-36); Mean Corpuscular Volume 95.6 fL (80-100); Monocytes Absolute Auto 1400 /uL (0-900); Monocytes Percent Auto 12.6 % (3-14); Neutrophils Absolute Auto 8000 /uL (1500-7000); Platelet Count 153 X10^3/uL (150-400); Red Blood Cell Count 4.67 X10^6/uL (4.5-5.9); Red Cell Distribution Width 14.5 % (11.6-14.8); White Blood Cell Count 11.3 X10^3/uL (4.5-11.0)
[2022-10-16 09:04] LABS: Alanine Aminotransferase 35 IU/L (<50); Albumin 3.4 g/dL (3.5-5.0); Albumin Globulin Ratio 1.2 (1.0-2.8); Alkaline Phosphatase 82 U/L (38-126); Aspartate Aminotransferase 31 IU/L (17-59); BUN Creatinine Ratio 20.5 (6-22); Blood Urea Nitrogen 44 mg/dL (9-20); Calcium 7.9 mg/dL (8.4-10.2); Carbon Dioxide 24 mmol/L (22-32); Chloride 107 mmol/L (98-107); Estimated Glomerular Filt Rate 30 mL/min (>60); Globulin 2.9 g/dL (1.7-4.1); Glucose 167 mg/dL (80-110); HEMOLYSIS < 15 (0-50); Lactate (Lactic Acid) 1.6 mmol/L (0.7-2.1); Magnesium 2.3 mg/dL (1.6-2.3); Potassium 4.6 mmol/L (3.4-5.1); Sodium 140 mmol/L (137-145); Total Protein 6.3 g/dL (6.3-8.2)
[2022-10-16 09:11] LABS: NT-proBNP (BNP-Adult 18+) 782 pg/mL (<450)
--- NOTE | 2022-10-16 09:14 | DI.ECHO.S_ITS ---
[facility] +---------+ : : [address] : [place] [address] : : : : [id number] : : : : Phone: [phone] Echocardiogram Report + + :Name: FIOR RIOS Study Date: 10/16/2022 Height: 70 in : :[facility] ReadingLocation: Weight: 194 lb : : Gender: Male BSA: 2.1 m2 : :: 1940 Age: 82 yrs BP: 109/69 mmHg: :Reason For Study: ASSESS EF, HYPOTENSION : :Ordering Physician: ALVIN, : :KRISTOPHER Slater D.O Performed By: Carolee López : :Referring: KRISTOPHER ESQUIVEL D.O : + + Interpretation Summary The ejection fraction is estimated to be 35-40%. There is a moderate dyssynchronous contraction pattern due to the paced rhythm. There is inferior wall hypokinesis. Procedure: A two-dimensional transthoracic echocardiogram with color flow and Doppler was performed in limited views only to assess ejection fraction. Comparison is made with the echocardiogram of 09/19/2022. The study quality was technically adequate. The heart rate ranged between 69-84 bpm during the study. Left Ventricle: Left ventricular size is at the upper limits of normal. The estimated left ventricular end diastolic volume is 139 ml. The ejection fraction is estimated to be 35-40%. There is a moderate dyssynchronous contraction pattern due to the paced rhythm. There is inferior wall hypokinesis. Pericardium/ Pleura There is no pericardial effusion. There is no pleural effusion. MMode/2D Measurements & Calculations LVIDd: 5.9 cm LVIDs: 4.8 cm FS: 18.3 % EPSS: 1.7 cm IVSd: 0.92 cm LVPWd: 0.92 cm LV nunez. diameter/BSA (cm/m^2): 2.9 LV sys. diameter/BSA (cm/m^2): 2.3 Reading Physician:01:11 PM
[2022-10-16] MEDS: SODIUM CHLORIDE 0.9% FLUSH 10 ML IV ×2 (09:24→21:06)
[2022-10-16] MEDS: SODIUM CHLORIDE 0.9% 500 ML IV (09:24)
[2022-10-16] MEDS: MIDODRINE HCL 5 MG TABLET PO (09:49)
--- NOTE | 2022-10-16 13:38 | CM.DANOTE ---
Patient is an 82-year-old male. Has a pacemaker in place. Is on anticoagulation. Has also had arrhythmias in the past. Was recently started on Mexilitine by his infectious disease physician after having episodes of ventricular tachycardia. Pt has Medicare and [employer]. Pt's PCP is Dr. Klever Gresham. SW met with pt and spouse at bedside to initiate assessment. Pt is fully independent with ADLs and does not have caregiver or fiber worker in home. Plan: SW will continue to follow and make referrals as needed. TEMO Reid Discharge Planning/Care Management CM Discharge Assessment Start: 10/16/22 12:14 Freq: Status: Active Protocol: Document 10/16/22 13:15 TM (Rec: 10/16/22 13:38 TM [id number]) Discharge Planning Assessment Assigned Secretary Book Keeper TEMO Reid DPOA/Assigned Designee Name None. YANDY is spouseIrish Contact Information [phone] Advance Directives? Yes Advance Directives on File No History Provided By Patient,Family Member,Medical Record Has Patient been admitted in last 30 No days? Prior Living Arrangements House Comment Pt lives in a 1 story house with 3STE. Pt reports there is a hand railing outside and grab bars in the bathroom. Household Members spouse Type of transporation used prior to Drives own vehicle admit Independent with ADL's Yes Is patient alert and oriented? Yes Comment Pt fully independent with ADLs . Does not require assistance. Caregiver for Another No DME Already Rented / Owned Cane Comment Pt owns a cane but does not regularly use. Comment TBD. Pending recs from team. Barriers to Discharge No Discharge Plan Home Transportation Arrangement likely spouse for transport at d/c Referrals Initiated None needed Please Provide Date Initial DC 10/16/22 Assessment Was Performed
--- NOTE | 2022-10-16 13:45 | P.PN_ITS ---
Subjective Subjective Date Patient Seen: 10/16/22 Interval history: 82-year-old male with history AFib, pacemaker ICD, on Eliquis, systolic heart failure, CKD, insulin-requiring diabetes presented with close to 1 week history of weakness, dizziness and lightheadedness, nausea, bloating and abdominal pain, had fallen off of toilet seat at home without LOC. He was admitted last month due to multiple discharges of ICD and sent home on mexiletine. He had been on amiodarone in the past which was discontinued due to toxicity. Patient noted to be hypotensive, elevated WBC and in AZAR. Patient states feeling better with IV hydration and holding BP lowering meds. Tolerating diet today. Blood pressures much improved. Exam Vital Signs (past 8 hours): - 10/16/22 06:00 10/16/22 06:00 10/16/22 06:15 Temperature 97.9 F 97.9 F Pulse Rate 69 76 Respiratory Rate 15 23 Blood Pressure 103/56 L Pulse Oximetry 97 98 Oxygen Delivery Method 10/16/22 10:00 Temperature Pulse Rate Respiratory Rate Blood Pressure Pulse Oximetry Oxygen Delivery Method Room Air Oxygen Delivery Method Room Air Oxygen Flow Rate 0 Narrative Exam Narrative: General: Alert and pleasant male in no distress Lungs: Regular rhythm Heart: AFib with intermittent paced on tele Abdomen: Obese, nontender Extremities: No edema Neurological: Fully oriented Objective Labs Result Diagrams: 10/16/22 08:08 10/16/22 08:08 Labs: Laboratory Results - last 24 hr 10/15/22 10/15/22 10/15/22 14:42 14:43 14:45 WBC 16.3 H RBC 5.02 Hgb 15.5 Hct 48.0 MCV 95.6 MCH 30.8 MCHC 32.2 RDW 14.7 Plt Count 177 Neut % (Auto) 82.8 H Lymph % (Auto) 9.2 L [place] % (Auto) 7.5 Eos % (Auto) 0.1 L Baso % (Auto) 0.4 Neut # (Auto) 79783 H Lymph # (Auto) 1500 [place] # (Auto) 1200 H Eos # (Auto) 0 Baso # (Auto) 100 PT INR APTT Sodium Potassium Chloride Carbon Dioxide BUN Creatinine Estimated GFR BUN/Creatinine Ratio Glucose Lactate 2.7 H Calcium Magnesium Total Bilirubin AST ALT Alkaline Phosphatase Total Creatine Kinase CK-MB (CK-2) CK-MB (CK-2) Rel Index Troponin I NT-Pro-B Natriuret Pep Total Protein Albumin Globulin Albumin/Globulin Ratio Lipase Procalcitonin 0.11 Urine Color Urine Appearance Urine pH Ur Specific [place] Urine Protein Urine Glucose (UA) Urine Ketones Urine Occult Blood Urine Nitrate Urine Bilirubin Urine Urobilinogen Ur Leukocyte Esterase Urine RBC Urine WBC Ur Squamous Epith Cells Urine Bacteria Nasal Screen MRSA (PCR) Chlamy pneumoniae PCR Adenovirus (PCR) B. pertussis DNA (PCR) B.parapertussis DNA PCR Coronavirus OC43 (PCR) Coronavirus HKU1 (PCR) Coronavirus 229E (PCR) SARS-CoV-2 (PCR) Coronavirus NL63 (PCR) Human Metapneumovir PCR Influenza A (RT-PCR) Influenza Type A (PCR) Influenza B (RT-PCR) Influenza Type B (PCR) M. pneumoniae (PCR) Parainfluenza 1 (PCR) Parainfluenza 2 (PCR) Parainfluenza 3 (PCR) Parainfluenza 4 (PCR) RSV (PCR) Entero/Rhino (PCR) 10/15/22 10/15/22 10/15/22 14:45 14:45 14:50 WBC RBC Hgb Hct MCV MCH MCHC RDW Plt Count Neut % (Auto) Lymph % (Auto) [place] % (Auto) Eos % (Auto) Baso % (Auto) Neut # (Auto) Lymph # (Auto) [place] # (Auto) Eos # (Auto) Baso # (Auto) PT 16.5 H INR 1.4 H APTT 30 Sodium 139 Potassium 5.1 Chloride 99 Carbon Dioxide 29 BUN 55 H Creatinine 2.60 H Estimated GFR 24 L BUN/Creatinine Ratio 21.2 Glucose 240 H Lactate Calcium 9.1 Magnesium 2.5 H Total Bilirubin 1.2 AST 42 ALT 46 Alkaline Phosphatase 95 Total Creatine Kinase 43 L CK-MB (CK-2) TNP CK-MB (CK-2) Rel Index TNP Troponin I < 0.012 NT-Pro-B Natriuret Pep 917 H Total Protein 7.6 Albumin 4.1 Globulin 3.5 Albumin/Globulin Ratio 1.2 Lipase 39 Procalcitonin Urine Color Urine Appearance Urine pH Ur Specific [place] Urine Protein Urine Glucose (UA) Urine Ketones Urine Occult Blood Urine Nitrate Urine Bilirubin Urine Urobilinogen Ur Leukocyte Esterase Urine RBC Urine WBC Ur Squamous Epith Cells Urine Bacteria Nasal Screen MRSA (PCR) Chlamy pneumoniae PCR Adenovirus (PCR) B. pertussis DNA (PCR) B.parapertussis DNA PCR Coronavirus OC43 (PCR) Coronavirus HKU1 (PCR) Coronavirus 229E (PCR) SARS-CoV-2 (PCR) Negative Coronavirus NL63 (PCR) Human Metapneumovir PCR Influenza A (RT-PCR) Flu a negative Influenza Type A (PCR) Influenza B (RT-PCR) Flu b negative Influenza Type B (PCR) M. pneumoniae (PCR) Parainfluenza 1 (PCR) Parainfluenza 2 (PCR) Parainfluenza 3 (PCR) Parainfluenza 4 (PCR) RSV (PCR) Negative Entero/Rhino (PCR) 10/15/22 10/15/22 10/15/22 17:20 17:53 18:50 WBC RBC Hgb Hct MCV MCH MCHC RDW Plt Count Neut % (Auto) Lymph % (Auto) [place] % (Auto) Eos % (Auto) Baso % (Auto) Neut # (Auto) Lymph # (Auto) [place] # (Auto) Eos # (Auto) Baso # (Auto) PT INR APTT Sodium Potassium Chloride Carbon Dioxide BUN Creatinine Estimated GFR BUN/Creatinine Ratio Glucose Lactate 1.1 Calcium Magnesium Total Bilirubin AST ALT Alkaline Phosphatase Total Creatine Kinase CK-MB (CK-2) CK-MB (CK-2) Rel Index Troponin I NT-Pro-B Natriuret Pep Total Protein Albumin Globulin Albumin/Globulin Ratio Lipase Procalcitonin Urine Color Yellow Urine Appearance Clear Urine pH 5.0 Ur Specific [place] 1.020 Urine Protein 1+ H Urine Glucose (UA) Trace H Urine Ketones Negative Urine Occult Blood Trace-intact Urine Nitrate Negative Urine Bilirubin Negative Urine Urobilinogen 0.2 Ur Leukocyte Esterase Negative Urine RBC None seen Urine WBC 1-5/hpf Ur Squamous Epith Cells 0-1 /hpf Urine Bacteria Occasional (0-1) Nasal Screen MRSA (PCR) Chlamy pneumoniae PCR Not detected Adenovirus (PCR) Not detected B. pertussis DNA (PCR) Not detected B.parapertussis DNA PCR Not detected Coronavirus OC43 (PCR) Not detected Coronavirus HKU1 (PCR) Not detected Coronavirus 229E (PCR) Not detected SARS-CoV-2 (PCR) Not detected Coronavirus NL63 (PCR) Not detected Human Metapneumovir PCR Not detected Influenza A (RT-PCR) Influenza Type A (PCR) Not detected Influenza B (RT-PCR) Influenza Type B (PCR) Not detected M. pneumoniae (PCR) Not detected Parainfluenza 1 (PCR) Not detected Parainfluenza 2 (PCR) Not detected Parainfluenza 3 (PCR) Not detected Parainfluenza 4 (PCR) Not detected RSV (PCR) Not detected Entero/Rhino (PCR) Not detected 10/15/22 10/16/22 10/16/22 21:35 00:45 08:08 WBC 11.3 H RBC 4.67 Hgb 14.5 Hct 44.6 MCV 95.6 MCH 31.0 MCHC 32.4 RDW 14.5 Plt Count 153 Neut % (Auto) 71.0 Lymph % (Auto) 15.0 L [place] % (Auto) 12.6 Eos % (Auto) 0.6 L Baso % (Auto) 0.8 Neut # (Auto) 8000 H Lymph # (Auto) 1700 [place] # (Auto) 1400 H Eos # (Auto) 100 Baso # (Auto) 100 PT INR APTT Sodium 138 Potassium 4.5 Chloride 109 H Carbon Dioxide 21 L BUN 47 H Creatinine 2.07 H Estimated GFR 31 L BUN/Creatinine Ratio 22.7 H Glucose 220 H Lactate Calcium 7.6 L Magnesium 2.2 Total Bilirubin 0.8 AST 27 ALT 36 Alkaline Phosphatase 76 Total Creatine Kinase CK-MB (CK-2) CK-MB (CK-2) Rel Index Troponin I NT-Pro-B Natriuret Pep Total Protein 5.9 L Albumin 3.2 L Globulin 2.7 Albumin/Globulin Ratio 1.2 Lipase Procalcitonin Urine Color Urine Appearance Urine pH Ur Specific [place] Urine Protein Urine Glucose (UA) Urine Ketones Urine Occult Blood Urine Nitrate Urine Bilirubin Urine Urobilinogen Ur Leukocyte Esterase Urine RBC Urine WBC Ur Squamous Epith Cells Urine Bacteria Nasal Screen MRSA (PCR) Negative for mrsa Chlamy pneumoniae PCR Adenovirus (PCR) B. pertussis DNA (PCR) B.parapertussis DNA PCR Coronavirus OC43 (PCR) Coronavirus HKU1 (PCR) Coronavirus 229E (PCR) SARS-CoV-2 (PCR) Coronavirus NL63 (PCR) Human Metapneumovir PCR Influenza A (RT-PCR) Influenza Type A (PCR) Influenza B (RT-PCR) Influenza Type B (PCR) M. pneumoniae (PCR) Parainfluenza 1 (PCR) Parainfluenza 2 (PCR) Parainfluenza 3 (PCR) Parainfluenza 4 (PCR) RSV (PCR) Entero/Rhino (PCR) 10/16/22 10/16/22 08:08 08:08 WBC RBC Hgb Hct MCV MCH MCHC RDW Plt Count Neut % (Auto) Lymph % (Auto) [place] % (Auto) Eos % (Auto) Baso % (Auto) Neut # (Auto) Lymph # (Auto) [place] # (Auto) Eos # (Auto) Baso # (Auto) PT INR APTT Sodium 140 Potassium 4.6 Chloride 107 Carbon Dioxide 24 BUN 44 H Creatinine 2.15 H Estimated GFR 30 L BUN/Creatinine Ratio 20.5 Glucose 167 H Lactate 1.6 Calcium 7.9 L Magnesium 2.3 Total Bilirubin 1.0 AST 31 ALT 35 Alkaline Phosphatase 82 Total Creatine Kinase CK-MB (CK-2) CK-MB (CK-2) Rel Index Troponin I NT-Pro-B Natriuret Pep 782 H Total Protein 6.3 Albumin 3.4 L Globulin 2.9 Albumin/Globulin Ratio 1.2 Lipase Procalcitonin 0.10 Urine Color Urine Appearance Urine pH Ur Specific [place] Urine Protein Urine Glucose (UA) Urine Ketones Urine Occult Blood Urine Nitrate Urine Bilirubin Urine Urobilinogen Ur Leukocyte Esterase Urine RBC Urine WBC Ur Squamous Epith Cells Urine Bacteria Nasal Screen MRSA (PCR) Chlamy pneumoniae PCR Adenovirus (PCR) B. pertussis DNA (PCR) B.parapertussis DNA PCR Coronavirus OC43 (PCR) Coronavirus HKU1 (PCR) Coronavirus 229E (PCR) SARS-CoV-2 (PCR) Coronavirus NL63 (PCR) Human Metapneumovir PCR Influenza A (RT-PCR) Influenza Type A (PCR) Influenza B (RT-PCR) Influenza Type B (PCR) M. pneumoniae (PCR) Parainfluenza 1 (PCR) Parainfluenza 2 (PCR) Parainfluenza 3 (PCR) Parainfluenza 4 (PCR) RSV (PCR) Entero/Rhino (PCR) [facility] Medical History (Updated 10/15/22 @ 17:23 by Hudson Martins DO) Atrial fibrillation Hyperlipidemia Hypertension Ischemic cardiomyopathy Myocardial infarction Obesity Obstructive sleep apnea of adult Primary insomnia Snoring Type 2 diabetes mellitus Surgical History History of cholecystectomy History of ERCP History of hernia repair History of left knee replacement History of partial knee replacement History of resection of 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 Mother Leukemia Social History household members: spouse Smoking Status: Former smoker alcohol intake: former Assessment & Plan Assessment & Plan narrative: 1. Acute dehydration, hypotension, resolving -patient presented with GI symptoms, decreased p.o. intake, low BP and near syncope episodes which seem secondary to recent initiation of mexiletine -improved BP and symptoms with gentle hydration and holding antihypertensives -IV now Hep-Locked -sepsis ruled out-discontinued antibiotics 2. Acute kidney injury -patient baseline creatinine 1.8 -improving renal function with hydration 3. Heart failure with reduced EF -limited echo shows no change from recent echo and patient does not appear in acute heart failure -restart metoprolol succinate at 150 mg b.i.d. (reduced from admission), furosemide 60 mg b.i.d. -continue holding lisinopril and Entresto for 1 or 2 more days until renal function further improves -resume aspirin 81 mg q.d., rosuvastatin 10 mg q.p.m. 4. History of V-tach -discontinued mexiletine due to likely adverse effects, history of amiodarone toxicity, QT increase on sotalol -reviewed with Dr. Pérez, recommends starting patient back on a lower dose of mexiletine and also lower dose of his metoprolol -decrease mexiletine to 150 mg b.i.d., decrease metoprolol to 150 mg b.i.d. -continue telemetry -follow-up with Dr. Laughlin as outpatient 5. Atrial fibrillation, chronic -resume apixaban 2.5 mg b.i.d. 6. Insulin-requiring diabetes -on carb controlled diet -resume Lantus 25 units b.i.d. -insulin aspartate 20 units b.i.d. with meals which is half his usual dose and insulin sliding scale 7. Leukocytosis, acute on chronic -patient seems to run mildly elevated on his WBC, admitted with WBC 16 K and now trending down -no evidence of infectious process -discontinued antibiotics Time Spent With Patient Critical Care time: I spent a total of [] minutes of critical care time on this patient's care today; this time is exclusive of procedural time. Quality VTE Deep Vein Thrombosis/Pulmonary Embolism Present on Admission: No
--- NOTE | 2022-10-16 13:49 | PM.HP.1 ---
History of Present Illness History of Present Illness Chief complaint: Referred by Cardiology, Bad Reaction Narrative: Raul Ray ?is a 82-year-old male patient with a history coronary artery disease with stent placement, [place], ischemic cardiomyopathy, insulin-dependent diabetes, severe HOWIE, systolic CHF (EF 35-40%), atrial fibrillation and AICD implantation, recent hospitalization 09/2022 V-tach run of about 30 seconds he has had multiple episodes of AFib with RVR, frequent defibrillator discharges, ED 09/09/2022 cardioverted x2 for V-tach.? He was cardioverted twice today who presents to the ED- recently started on Mexilitine by his center human resources manager after having episodes of ventricular tachycardia.? He states that after being on that medication for about 1 week he is started to have weakness, unsteadiness, dyspnea on exertion.? No chest pain.? No lower extremity swelling.? He also states he has been having some abdominal discomfort.? He is still passing flatus.? He is still having bowel movements.? No vomiting.? He has had a decrease in oral intake.? He contacted his center human resources manager to told him to come to the emergency department for concerns about a bad reaction to his new medications. ? At the time of admit patient denies currently any chest pain, shortness at breath, headache, changes in vision, numbness, tingling, cough, sore throat, upper respiratory symptoms, fever, body aches, chills, abdominal pain, nausea, vomiting, diarrhea, constipation, urinary symptoms, skin injuries infections, any other changes to medication, or any recent illness injury or trauma. 97.9, 87/53, 70, 15, 96% on rm air. WBC 16.3, nuet 13,500, mono 1200, Na+139, bun 55, K+5.1, Manager Of Operations 2.6, BS240, GFR 24, CCL: 26, Mag 2.5, Lactate WNL, TCK43, Trop WNL, Covid neg,Resp Panel Neg, No Gap, SOFA:2, CXR no acute cardiopulmonary process. Patient admitted for Sepsis with hypotensive shock MAP<65, Patient History Medical History Atrial fibrillation Hyperlipidemia Hypertension Ischemic cardiomyopathy Myocardial infarction Obesity Obstructive sleep apnea of adult Primary insomnia Snoring Type 2 diabetes mellitus Surgical History History of cholecystectomy History of ERCP History of hernia repair History of left knee replacement History of partial knee replacement History of resection of pancreas History of splenectomy S/P implantation of automatic cardioverter/defibrillator (AICD) Family & Social History Family History Father No problems noted. Mother Leukemia Social History: household members spouse Prior Living Arrangements House Safety & Behavioral: Feels Safe in Current Yes Environment Been Physically Hurt or No Threatened By a Person Tobacco & Substance use: Tobacco type cigarettes Smoking Status Former smoker alcohol intake former alcohol intake frequency holiday/special occasion Substance Use Type does not use Meds Home Medications and Allergies Home Medications Medication Instructions Recorded Confirmed Type coenzyme Q10 100 mg capsule 100 mg PO DAILY ##0 07/15/12 10/15/22 History (CoQ-10) rosuvastatin 10 mg tablet (Crestor) 10 mg PO QPM ##0 07/15/12 10/15/22 History aspirin 81 mg tablet,delayed 81 mg OR QPM ##0 12/11/17 10/15/22 History release furosemide 40 mg tablet (Lasix) 60 mg PO BID #10 tabs 11/15/18 10/15/22 Rx apixaban 2.5 mg tablet 2.5 mg PO BID 11/18/18 10/15/22 History glucosamine [id number] 1 tab PO BID 11/18/18 10/15/22 History robert 1,500 mg-400 unit-100 mg tablet (Osteo Bi-Flex (5-Loxin)) insulin aspart U-100 100 unit/mL 40 - 50 units SUBCUT BID 11/18/18 10/15/22 History subcutaneous solution insulin glargine 100 unit/mL 25 units SUBCUT BID 11/18/18 10/15/22 History subcutaneous solution lisinopril 40 mg tablet 40 mg PO QPM 11/18/18 10/15/22 History finasteride 5 mg tablet 5 mg PO DAILY 09/18/22 10/15/22 History sacubitril 49 mg-valsartan 51 mg 1 tab PO DAILY 09/18/22 10/15/22 History tablet (Entresto) tamsulosin 0.4 mg capsule 0.4 mg PO DAILY 09/18/22 10/15/22 History metoprolol succinate 200 mg 200 mg PO BID 30 days #60 tabs 09/22/22 10/15/22 Rx tablet,extended release 24 hr mexiletine 200 mg capsule 200 mg PO TID 30 days #90 caps 09/22/22 10/15/22 Rx Allergies Allergy/AdvReac Type Severity Reaction Status Date / Time Penicillins [PENICILLINS] Allergy Unknown Verified 10/15/22 14:10 amoxicillin AdvReac Mild DIARRHEA Verified 10/16/22 15:47 naproxen AdvReac Mild DIARRHEA Verified 10/16/22 15:47 Review of Systems Review of Systems Narrative: All 12 point systems reviewed with the patient and are negative except otherwise documented. Exam Vital Signs (past 8 hours): - 10/16/22 06:00 10/16/22 06:00 10/16/22 06:15 Temperature 97.9 F 97.9 F Pulse Rate 69 76 Respiratory Rate 15 23 Blood Pressure 103/56 L Pulse Oximetry 97 98 Oxygen Delivery Method 10/16/22 10:00 Temperature Pulse Rate Respiratory Rate Blood Pressure Pulse Oximetry Oxygen Delivery Method Room Air Oxygen Delivery Method Room Air Oxygen Flow Rate 0 Narrative Exam Narrative: General: cooperative, comfortable and No ill appearing HENMT Head: normal to inspection and normocephalic Resp Effort & Inspection: normal respiratory effort Auscultation: clear to auscultation bilaterally Cardio Rate: regular rate Rhythm: regular rhythm GI Inspection: normal to inspection and non-distended Palpation: soft, No firm and No tender Auscultation: normal bowel sounds Skin General: no rashes or lesions noted Neuro General: patient alert, patient awake and moves all extremities Speech: speech normal Extrem General: normal to inspection, capillary refill normal and No edema Psych Appearance: grossly normal Objective Labs Result Diagrams: 10/16/22 08:08 10/16/22 08:08 Labs: Laboratory Results - last 24 hr 10/15/22 10/15/22 10/15/22 14:42 14:43 14:45 WBC 16.3 H RBC 5.02 Hgb 15.5 Hct 48.0 MCV 95.6 MCH 30.8 MCHC 32.2 RDW 14.7 Plt Count 177 Neut % (Auto) 82.8 H Lymph % (Auto) 9.2 L Waldo % (Auto) 7.5 Eos % (Auto) 0.1 L Baso % (Auto) 0.4 Neut # (Auto) 68321 H Lymph # (Auto) 1500 Waldo # (Auto) 1200 H Eos # (Auto) 0 Baso # (Auto) 100 PT INR APTT Sodium Potassium Chloride Carbon Dioxide BUN Creatinine Estimated GFR BUN/Creatinine Ratio Glucose Lactate 2.7 H Calcium Magnesium Total Bilirubin AST ALT Alkaline Phosphatase Total Creatine Kinase CK-MB (CK-2) CK-MB (CK-2) Rel Index Troponin I NT-Pro-B Natriuret Pep Total Protein Albumin Globulin Albumin/Globulin Ratio Lipase Procalcitonin 0.11 Urine Color Urine Appearance Urine pH Ur Specific Orgas Urine Protein Urine Glucose (UA) Urine Ketones Urine Occult Blood Urine Nitrate Urine Bilirubin Urine Urobilinogen Ur Leukocyte Esterase Urine RBC Urine WBC Ur Squamous Epith Cells Urine Bacteria Nasal Screen MRSA (PCR) Chlamy pneumoniae PCR Adenovirus (PCR) B. pertussis DNA (PCR) B.parapertussis DNA PCR Coronavirus OC43 (PCR) Coronavirus HKU1 (PCR) Coronavirus 229E (PCR) SARS-CoV-2 (PCR) Coronavirus NL63 (PCR) Human Metapneumovir PCR Influenza A (RT-PCR) Influenza Type A (PCR) Influenza B (RT-PCR) Influenza Type B (PCR) M. pneumoniae (PCR) Parainfluenza 1 (PCR) Parainfluenza 2 (PCR) Parainfluenza 3 (PCR) Parainfluenza 4 (PCR) RSV (PCR) Entero/Rhino (PCR) 10/15/22 10/15/22 10/15/22 14:45 14:45 14:50 WBC RBC Hgb Hct MCV MCH MCHC RDW Plt Count Neut % (Auto) Lymph % (Auto) Waldo % (Auto) Eos % (Auto) Baso % (Auto) Neut # (Auto) Lymph # (Auto) Waldo # (Auto) Eos # (Auto) Baso # (Auto) PT 16.5 H INR 1.4 H APTT 30 Sodium 139 Potassium 5.1 Chloride 99 Carbon Dioxide 29 BUN 55 H Creatinine 2.60 H Estimated GFR 24 L BUN/Creatinine Ratio 21.2 Glucose 240 H Lactate Calcium 9.1 Magnesium 2.5 H Total Bilirubin 1.2 AST 42 ALT 46 Alkaline Phosphatase 95 Total Creatine Kinase 43 L CK-MB (CK-2) TNP CK-MB (CK-2) Rel Index TNP Troponin I < 0.012 NT-Pro-B Natriuret Pep 917 H Total Protein 7.6 Albumin 4.1 Globulin 3.5 Albumin/Globulin Ratio 1.2 Lipase 39 Procalcitonin Urine Color Urine Appearance Urine pH Ur Specific Orgas Urine Protein Urine Glucose (UA) Urine Ketones Urine Occult Blood Urine Nitrate Urine Bilirubin Urine Urobilinogen Ur Leukocyte Esterase Urine RBC Urine WBC Ur Squamous Epith Cells Urine Bacteria Nasal Screen MRSA (PCR) Chlamy pneumoniae PCR Adenovirus (PCR) B. pertussis DNA (PCR) B.parapertussis DNA PCR Coronavirus OC43 (PCR) Coronavirus HKU1 (PCR) Coronavirus 229E (PCR) SARS-CoV-2 (PCR) Negative Coronavirus NL63 (PCR) Human Metapneumovir PCR Influenza A (RT-PCR) Flu a negative Influenza Type A (PCR) Influenza B (RT-PCR) Flu b negative Influenza Type B (PCR) M. pneumoniae (PCR) Parainfluenza 1 (PCR) Parainfluenza 2 (PCR) Parainfluenza 3 (PCR) Parainfluenza 4 (PCR) RSV (PCR) Negative Entero/Rhino (PCR) 10/15/22 10/15/22 10/15/22 17:20 17:53 18:50 WBC RBC Hgb Hct MCV MCH MCHC RDW Plt Count Neut % (Auto) Lymph % (Auto) Waldo % (Auto) Eos % (Auto) Baso % (Auto) Neut # (Auto) Lymph # (Auto) Waldo # (Auto) Eos # (Auto) Baso # (Auto) PT INR APTT Sodium Potassium Chloride Carbon Dioxide BUN Creatinine Estimated GFR BUN/Creatinine Ratio Glucose Lactate 1.1 Calcium Magnesium Total Bilirubin AST ALT Alkaline Phosphatase Total Creatine Kinase CK-MB (CK-2) CK-MB (CK-2) Rel Index Troponin I NT-Pro-B Natriuret Pep Total Protein Albumin Globulin Albumin/Globulin Ratio Lipase Procalcitonin Urine Color Yellow Urine Appearance Clear Urine pH 5.0 Ur Specific Orgas 1.020 Urine Protein 1+ H Urine Glucose (UA) Trace H Urine Ketones Negative Urine Occult Blood Trace-intact Urine Nitrate Negative Urine Bilirubin Negative Urine Urobilinogen 0.2 Ur Leukocyte Esterase Negative Urine RBC None seen Urine WBC 1-5/hpf Ur Squamous Epith Cells 0-1 /hpf Urine Bacteria Occasional (0-1) Nasal Screen MRSA (PCR) Chlamy pneumoniae PCR Not detected Adenovirus (PCR) Not detected B. pertussis DNA (PCR) Not detected B.parapertussis DNA PCR Not detected Coronavirus OC43 (PCR) Not detected Coronavirus HKU1 (PCR) Not detected Coronavirus 229E (PCR) Not detected SARS-CoV-2 (PCR) Not detected Coronavirus NL63 (PCR) Not detected Human Metapneumovir PCR Not detected Influenza A (RT-PCR) Influenza Type A (PCR) Not detected Influenza B (RT-PCR) Influenza Type B (PCR) Not detected M. pneumoniae (PCR) Not detected Parainfluenza 1 (PCR) Not detected Parainfluenza 2 (PCR) Not detected Parainfluenza 3 (PCR) Not detected Parainfluenza 4 (PCR) Not detected RSV (PCR) Not detected Entero/Rhino (PCR) Not detected 10/15/22 10/16/22 10/16/22 21:35 00:45 08:08 WBC 11.3 H RBC 4.67 Hgb 14.5 Hct 44.6 MCV 95.6 MCH 31.0 MCHC 32.4 RDW 14.5 Plt Count 153 Neut % (Auto) 71.0 Lymph % (Auto) 15.0 L Waldo % (Auto) 12.6 Eos % (Auto) 0.6 L Baso % (Auto) 0.8 Neut # (Auto) 8000 H Lymph # (Auto) 1700 Waldo # (Auto) 1400 H Eos # (Auto) 100 Baso # (Auto) 100 PT INR APTT Sodium 138 Potassium 4.5 Chloride 109 H Carbon Dioxide 21 L BUN 47 H Creatinine 2.07 H Estimated GFR 31 L BUN/Creatinine Ratio 22.7 H Glucose 220 H Lactate Calcium 7.6 L Magnesium 2.2 Total Bilirubin 0.8 AST 27 ALT 36 Alkaline Phosphatase 76 Total Creatine Kinase CK-MB (CK-2) CK-MB (CK-2) Rel Index Troponin I NT-Pro-B Natriuret Pep Total Protein 5.9 L Albumin 3.2 L Globulin 2.7 Albumin/Globulin Ratio 1.2 Lipase Procalcitonin Urine Color Urine Appearance Urine pH Ur Specific Orgas Urine Protein Urine Glucose (UA) Urine Ketones Urine Occult Blood Urine Nitrate Urine Bilirubin Urine Urobilinogen Ur Leukocyte Esterase Urine RBC Urine WBC Ur Squamous Epith Cells Urine Bacteria Nasal Screen MRSA (PCR) Negative for mrsa Chlamy pneumoniae PCR Adenovirus (PCR) B. pertussis DNA (PCR) B.parapertussis DNA PCR Coronavirus OC43 (PCR) Coronavirus HKU1 (PCR) Coronavirus 229E (PCR) SARS-CoV-2 (PCR) Coronavirus NL63 (PCR) Human Metapneumovir PCR Influenza A (RT-PCR) Influenza Type A (PCR) Influenza B (RT-PCR) Influenza Type B (PCR) M. pneumoniae (PCR) Parainfluenza 1 (PCR) Parainfluenza 2 (PCR) Parainfluenza 3 (PCR) Parainfluenza 4 (PCR) RSV (PCR) Entero/Rhino (PCR) 10/16/22 10/16/22 08:08 08:08 WBC RBC Hgb Hct MCV MCH MCHC RDW Plt Count Neut % (Auto) Lymph % (Auto) Waldo % (Auto) Eos % (Auto) Baso % (Auto) Neut # (Auto) Lymph # (Auto) Waldo # (Auto) Eos # (Auto) Baso # (Auto) PT INR APTT Sodium 140 Potassium 4.6 Chloride 107 Carbon Dioxide 24 BUN 44 H Creatinine 2.15 H Estimated GFR 30 L BUN/Creatinine Ratio 20.5 Glucose 167 H Lactate 1.6 Calcium 7.9 L Magnesium 2.3 Total Bilirubin 1.0 AST 31 ALT 35 Alkaline Phosphatase 82 Total Creatine Kinase CK-MB (CK-2) CK-MB (CK-2) Rel Index Troponin I NT-Pro-B Natriuret Pep 782 H Total Protein 6.3 Albumin 3.4 L Globulin 2.9 Albumin/Globulin Ratio 1.2 Lipase Procalcitonin 0.10 Urine Color Urine Appearance Urine pH Ur Specific Orgas Urine Protein Urine Glucose (UA) Urine Ketones Urine Occult Blood Urine Nitrate Urine Bilirubin Urine Urobilinogen Ur Leukocyte Esterase Urine RBC Urine WBC Ur Squamous Epith Cells Urine Bacteria Nasal Screen MRSA (PCR) Chlamy pneumoniae PCR Adenovirus (PCR) B. pertussis DNA (PCR) B.parapertussis DNA PCR Coronavirus OC43 (PCR) Coronavirus HKU1 (PCR) Coronavirus 229E (PCR) SARS-CoV-2 (PCR) Coronavirus NL63 (PCR) Human Metapneumovir PCR Influenza A (RT-PCR) Influenza Type A (PCR) Influenza B (RT-PCR) Influenza Type B (PCR) M. pneumoniae (PCR) Parainfluenza 1 (PCR) Parainfluenza 2 (PCR) Parainfluenza 3 (PCR) Parainfluenza 4 (PCR) RSV (PCR) Entero/Rhino (PCR) Assessment & Plan Assessment & Plan narrative: Raul Rameshis a 82-year-old male patient with a history coronary artery disease with stent placement, [place], ischemic cardiomyopathy, insulin-dependent diabetes, severe HOWIE, systolic CHF (EF 35-40%), atrial fibrillation and AICD implantation recent hx of frequent defibrillator discharges, cardioverted x2 for V-tach due to V-tach runs and multiple episodes of AFib with RVR, Patient admitted for Sepsis with hypotensive shock, 1. Sepsis with hyotensive shock, unknown etiology, present on admission -on Admit Temp 97.9, 87/53, 70, 15, 96% on rm air. WBC 16.3, nuet 13,500, mono 1200, -Mag 2.5, Lactate WNL, TCK43, Trop WNL, Covid neg,Resp Panel Neg, No Gap, SOFA:2, -CXR no acute cardiopulmonary process. -Dark Room Attendant Concsult Dr. Sexton -OrderedProc, MRSA, Urine culture , bld culture -IV Bolus, move to ICU-OB -rocephin/vanco in ED -started Rocephin and linazold 2. Parxysmal Atrial fibrillation and ventricular tachycardia rececent AICD recurrent discharges, chronic, present on admission -mild left shift neutrophils# 13,500, mono#1200 , procalcitonin, lactate are WNL.-Monitor for infection? -V-tach run 30 seconds he has had multiple episodes of AFib with RVR-cardioverted twice today 30 joules/ [address] Duncan is the patient's center human resources manager -Last echo & perfusion scan was on 01/18/2022 (I personally reviewed), -start sotalol 80 mg b.i.d. Po-Patient to receive 4-5 doses... -Monitor on Tele: prolonged QTC, and bradycardia -continue metoprolol 100 mg b.i.d. (hold and notify provider for SBP<110, DBP<60, or HR<100-x 30min may be able to titrate down on metoprolol dose. -continue Eliquis -echo ordered -troponins Neg, will continue to trend x3-asymptomatic -Mag 2.5, potassium 5.1 2. Systolic congestive heart failure, exacerbation, acute on chronic, present on admission -Admit B/P87/53, BNP ordered -patient reports that he takes a total of 40 mg IV Lasix daily, will gently diurese with 20 mg IV Lasix b.i.d. -fluid restriction less than 2000, low-sodium diet, monitor strict I&Os -patient report previous amiodarone toxicity -01/18/2022 Last echo EF 35-40% & -01/18/2022 perfusion scan: This is an abnormal myocardial perfusion study consistent with large size infarction of inferior wall extending into the inferior apex, inferior septum as well as basal inferolateral wall without any significant reversible ischemic burden.? -Chest x-ray -Neg -respiratory consult ordered 3. Hypertension, essential, chronic, present on admission -continue metoprolol titrate down as needed secondary to sotalol -Admit 141/70 4. Insulin-dependent diabetes secondary to hyperlipidemia, acute on chronic, uncontrolled, present on admission -admitting blood sugar 240, A1c:ordered -patient reports to taking NovoLog 40-50 units b.i.d., and Lantus 25 units at bedtime.? -dietary consult for diabetes education ordered -Continue NovoLog sliding scale for meals, a.c. HS blood sugar checks -patient admitted under diabetic protocol, monitoring for hypo and hyperglycemia -continue Crestor 5. Severe obstructive sleep apnea, chronic, present on admission -respiratory consult ordered -pulmonary function test 01/31/22 Dr. Erwin:This study demonstrates mild to moderate obstructive lung disease based on reduction FEV1.? FEV1/FVC ratio is relatively preserved but there is evidence of benefit following bronchodilator particularly small airway flows as above based on improvement in FEF 25-75% There is also moderate severe reduction in lung volumes suggesting moderate restrictive lung disease which may explain most of the abnormality in FEV1 above There is also a [id number] reduction diffusing capacity suggesting disease at the capillary alveolar level. 6. AZAR on Chronic kidney disease stage 3, chronic, present on admission -Na+139, bun 55, K+5.1, -Sodium 139, BUN 55, creatinine 2.60, GFR 24 -baseline creatinine 1.57-1.84, BUN 30-39 -continue to monitor renal function -strict I&O -avoid nephrotoxic medications 7. Ischemic cardiomyopathy with history of myocardial infarction, chronic, present on admission -managed by Dr. Duncan 8. Obesity as evidence by BMI 27.8, acute on chronic, present on admission -dietary consult ordered regarding nutritional education and information for dietary, lifestyle, exercise, and weight changes. -the patient is at much higher risk for medical and surgical complications due to obesity as it relates to chronic illnesses:, and current acute illness.? The patient's obesity increases the difficulty and complexity of medical and/or surgical interventions, management and increases the chances of poor outcome such as morbidity and mortality as well as impaired wound healing.? 9. BPH, chronic, present on admission -continue Flomax and finasteride Code status:? Full Surrogate decision maker:? Irish Ray-spouse COVID PCR:? Negative DVT/VTE prophylaxis:? Eliquis and SCDs Disposition:? Patient requires acute care inpatient for management of uncontrolled atrial fibrillation with RVR and ventricular tachycardia as well as CHF exacerbation after failing outpatient management, expected length of stay greater than 2 midnights. I have utilized all available immediate resources to obtain, update, or review the patient's current medications. I confirmed that the patient's advanced care plan is present, Code status is documented and/or surrogate decision maker is listed in the patient's medical record. I have personally reviewed patient's chart notes from PCP, specialists, diagnostic imaging, and laboratory, acemaker interrogated.? He did have V-tach run of about 30 seconds he has had multiple episodes of AFib with RVR.? He was cardioverted twice today once at 30 joules and once at [address] Duncan is the patient's center human resources manager last echo & perfusion scan was on 01/18/2022 (I personally reviewed), pulmonary function test 01/31/[address] Nathan ((I personally reviewed) Time Spent With Patient Critical Care time: I spent a total of [] minutes of critical care time on this patient's care today; this time is exclusive of procedural time. Quality VTE Deep Vein Thrombosis/Pulmonary Embolism Present on Admission: No
[2022-10-16 15:53] LABS: Hemoglobin A1C% w Est Avg Glu 9.6 % (4.0-6.0)
[2022-10-16] MEDS: INSULIN LISPRO 100 UNIT/ML 3ML VIAL 20 UNIT SUBCUT (17:48)
[2022-10-16] MEDS: ASPIRIN EC 81 MG TABLET PO (17:48)
[2022-10-16] MEDS: ATORVASTATIN 20 MG TABLET PO (17:48)
[2022-10-16] MEDS: FUROSEMIDE 20 MG TABLET 60 MG PO (21:06)
[2022-10-16] MEDS: APIXABAN 5 MG TABLET 2.5 MG PO (21:07)
[2022-10-17] VITALS (90 sets, daily range): BP systolic 85–125; BP diastolic 50–74; PULSE 69–111; RESP 12–38; TEMP 36.7–37.5; O2SAT 85–99
--- NOTE | 2022-10-17 06:24 | PC.NURSE ---
[employer] Note-Patient says he slept well. Did wake up at 0130, feeling funny with little pain to RUQ, declines offer of analgesic, repositioned, tolerating pain which resolved. VSS, placed on 2L NC overnight for apnea, sats down to 85%. PO Lasix and Eliquis restarted, PO metoprolol held for 104/59(74), patient declined, also declined HS Lantus for CBG 159.
[2022-10-17 06:54] LABS: Add Manual Diff / Slide Review NO; Basophils Absolute Auto 100 /uL (0-100); Basophils Percent Auto 0.7 % (0-2); Eosinophils Absolute Auto 300 /uL (0-450); Eosinophils Percent Auto 2.3 % (2-4); Hematocrit 44.7 % (41-53); Hemoglobin 14.7 g/dL (13.5-17.5); Lymphocytes Absolute Auto 2600 /uL (1100-4500); Lymphocytes Percent Auto 22.8 % (25-40); Mean Corpuscular HGB Conc 32.9 % (30-36); Mean Corpuscular Hemoglobin 31.3 PG (26-34); Mean Corpuscular Volume 95.2 fL (80-100); Monocytes Absolute Auto 1500 /uL (0-900); Monocytes Percent Auto 13.1 % (3-14); Neutrophils Absolute Auto 7100 /uL (1500-7000); Neutrophils Percent Auto 61.1 % (50-75); Platelet Count 148 X10^3/uL (150-400); Red Cell Distribution Width 14.7 % (11.6-14.8); White Blood Cell Count 11.6 X10^3/uL (4.5-11.0)
[2022-10-17 06:57] LABS: Alanine Aminotransferase 34 IU/L (<50); Albumin 3.5 g/dL (3.5-5.0); Albumin Globulin Ratio 1.2 (1.0-2.8); Alkaline Phosphatase 85 U/L (38-126); Aspartate Aminotransferase 35 IU/L (17-59); BUN Creatinine Ratio 16.4 (6-22); Bilirubin Total 0.9 mg/dL (0.2-1.3); Blood Urea Nitrogen 35 mg/dL (9-20); Calcium 8.3 mg/dL (8.4-10.2); Carbon Dioxide 25 mmol/L (22-32); Chloride 105 mmol/L (98-107); Estimated Glomerular Filt Rate 30 mL/min (>60); Globulin 2.9 g/dL (1.7-4.1); Glucose 124 mg/dL (80-110); HEMOLYSIS < 15 (0-50); Magnesium 2.3 mg/dL (1.6-2.3); Potassium 4.1 mmol/L (3.4-5.1); Sodium 138 mmol/L (137-145); Total Protein 6.4 g/dL (6.3-8.2)
[2022-10-17] MEDS: INSULIN LISPRO 100 UNIT/ML 3ML VIAL 20 UNIT SUBCUT (08:25)
[2022-10-17] MEDS: APIXABAN 5 MG TABLET 2.5 MG PO ×2 (10:03→21:07)
--- NOTE | 2022-10-17 10:04 | P.PN_ITS ---
Subjective Subjective Date Patient Seen: 10/17/22 Interval history: 82-year-old male with history AFib, pacemaker ICD, on Eliquis, systolic heart failure, CKD, insulin-requiring diabetes presented with close to 1 week history of weakness, dizziness and lightheadedness, nausea, bloating and abdominal pain, had fallen off of toilet seat at home without LOC. He was admitted last month due to multiple discharges of ICD and sent home on mexiletine. He had been on amiodarone in the past which was discontinued due to toxicity. Patient noted to be hypotensive, elevated WBC, with elevated creatinine. WBC improved, BP remains soft on current medications, continues to be weak and slow. Patient states feeling better with IV hydration and holding BP lowering meds. Tolerating diet today. BP slightly soft today. Metoprolol reduced to 50 mg BID, entresto currently on hold. Exam Vital Signs (past 8 hours): - 10/17/22 04:21 10/17/22 02:15 10/17/22 02:30 Temperature 98.2 F 98.2 F 98.2 F Pulse Rate 69 69 73 Pulse Rate [Orthostatic Lying] Pulse Rate [Orthostatic Sitting] Pulse Rate [Orthostatic Standing] Respiratory Rate 14 12 17 Blood Pressure 102/59 L Blood Pressure [Orthostatic Lying] Blood Pressure [Orthostatic Sitting] Blood Pressure [Orthostatic Standing] Pulse Oximetry 95 87 L 98 Oxygen Flow Rate 2 10/17/22 02:45 10/17/22 03:00 10/17/22 03:15 Temperature 98.2 F 98.2 F 98.2 F Pulse Rate 69 69 69 Pulse Rate [Orthostatic Lying] Pulse Rate [Orthostatic Sitting] Pulse Rate [Orthostatic Standing] Respiratory Rate 15 15 18 Blood Pressure Blood Pressure [Orthostatic Lying] Blood Pressure [Orthostatic Sitting] Blood Pressure [Orthostatic Standing] Pulse Oximetry 98 99 98 Oxygen Flow Rate 10/17/22 03:30 10/17/22 03:45 10/17/22 04:00 Temperature 98.2 F 98.2 F 98.2 F Pulse Rate 69 72 75 Pulse Rate [Orthostatic Lying] Pulse Rate [Orthostatic Sitting] Pulse Rate [Orthostatic Standing] Respiratory Rate 18 22 22 Blood Pressure Blood Pressure [Orthostatic Lying] Blood Pressure [Orthostatic Sitting] Blood Pressure [Orthostatic Standing] Pulse Oximetry 98 98 98 Oxygen Flow Rate 10/17/22 04:13 10/17/22 04:13 10/17/22 04:15 Temperature 98.2 F 98.2 F Pulse Rate 69 70 Pulse Rate [Orthostatic Lying] Pulse Rate [Orthostatic Sitting] Pulse Rate [Orthostatic Standing] Respiratory Rate 19 16 Blood Pressure 102/59 L Blood Pressure [Orthostatic Lying] Blood Pressure [Orthostatic Sitting] Blood Pressure [Orthostatic Standing] Pulse Oximetry 98 98 Oxygen Flow Rate 10/17/22 04:30 10/17/22 04:45 10/17/22 05:00 Temperature 98.1 F 98.1 F 98.1 F Pulse Rate 69 70 73 Pulse Rate [Orthostatic Lying] Pulse Rate [Orthostatic Sitting] Pulse Rate [Orthostatic Standing] Respiratory Rate 16 15 22 Blood Pressure Blood Pressure [Orthostatic Lying] Blood Pressure [Orthostatic Sitting] Blood Pressure [Orthostatic Standing] Pulse Oximetry 99 99 99 Oxygen Flow Rate 10/17/22 05:15 10/17/22 05:30 10/17/22 05:45 Temperature 98.1 F 98.1 F 98.1 F Pulse Rate 75 69 70 Pulse Rate [Orthostatic Lying] Pulse Rate [Orthostatic Sitting] Pulse Rate [Orthostatic Standing] Respiratory Rate 15 17 20 Blood Pressure Blood Pressure [Orthostatic Lying] Blood Pressure [Orthostatic Sitting] Blood Pressure [Orthostatic Standing] Pulse Oximetry 99 97 98 Oxygen Flow Rate 10/17/22 06:00 10/17/22 06:15 10/17/22 06:30 Temperature 98.1 F 98.2 F 98.2 F Pulse Rate 69 83 74 Pulse Rate [Orthostatic Lying] Pulse Rate [Orthostatic Sitting] Pulse Rate [Orthostatic Standing] Respiratory Rate 14 26 H 17 Blood Pressure Blood Pressure [Orthostatic Lying] Blood Pressure [Orthostatic Sitting] Blood Pressure [Orthostatic Standing] Pulse Oximetry 91 98 99 Oxygen Flow Rate 10/17/22 06:45 10/17/22 07:00 10/17/22 07:15 Temperature 98.2 F 98.2 F 98.2 F Pulse Rate 76 71 73 Pulse Rate [Orthostatic Lying] Pulse Rate [Orthostatic Sitting] Pulse Rate [Orthostatic Standing] Respiratory Rate 18 18 19 Blood Pressure Blood Pressure [Orthostatic Lying] Blood Pressure [Orthostatic Sitting] Blood Pressure [Orthostatic Standing] Pulse Oximetry 99 99 99 Oxygen Flow Rate 10/17/22 07:30 10/17/22 07:45 10/17/22 09:30 Temperature 98.2 F 98.2 F Pulse Rate 92 H 77 Pulse Rate [Orthostatic Lying] 80 Pulse Rate [Orthostatic Sitting] Pulse Rate [Orthostatic Standing] Respiratory Rate 26 H 17 Blood Pressure Blood Pressure [Orthostatic Lying] 106/74 Blood Pressure [Orthostatic Sitting] Blood Pressure [Orthostatic Standing] Pulse Oximetry Oxygen Flow Rate 10/17/22 09:30 Temperature Pulse Rate Pulse Rate [Orthostatic Lying] 80 Pulse Rate [Orthostatic Sitting] 88 Pulse Rate [Orthostatic Standing] 93 H Respiratory Rate Blood Pressure Blood Pressure [Orthostatic Lying] 106/74 Blood Pressure [Orthostatic Sitting] 111/54 L Blood Pressure [Orthostatic Standing] 92/55 L Pulse Oximetry Oxygen Flow Rate Oxygen Delivery Method Room Air,Nasal Cannula Oxygen Flow Rate 2 Narrative Exam Narrative: GEN: no acute distress, WDWN HEENT: moist mucous membranes, PERRL NECK: trachea midline, no JVD CV: regular rate and rhythm with no m/r/g. frequently changes between regular and irregularly irregular, on monitor appears to be afib and intermittently paced. PULM: clear bilaterally no wheezing rhonchi or rales. ABD: soft, nontender, nondistended, no organomegaly EXT: warm and well perfused with no edema NEURO: awake, alert, oriented, no focal deficits Objective Labs Result Diagrams: 10/17/22 06:12 10/17/22 06:12 Labs: Laboratory Results - last 24 hr 10/15/22 10/17/22 10/17/22 14:45 06:12 06:12 WBC 11.6 H RBC 4.70 Hgb 14.7 Hct 44.7 MCV 95.2 MCH 31.3 MCHC 32.9 RDW 14.7 Plt Count 148 L Neut % (Auto) 61.1 Lymph % (Auto) 22.8 L [place] % (Auto) 13.1 Eos % (Auto) 2.3 Baso % (Auto) 0.7 Neut # (Auto) 7100 H Lymph # (Auto) 2600 [place] # (Auto) 1500 H Eos # (Auto) 300 Baso # (Auto) 100 Sodium 138 Potassium 4.1 Chloride 105 Carbon Dioxide 25 BUN 35 H Creatinine 2.13 H Estimated GFR 30 L BUN/Creatinine Ratio 16.4 Glucose 124 H Hemoglobin A1c 9.6 H Calcium 8.3 L Magnesium 2.3 Total Bilirubin 0.9 AST 35 ALT 34 Alkaline Phosphatase 85 Total Protein 6.4 Albumin 3.5 Globulin 2.9 Albumin/Globulin Ratio 1.2 [facility] Medical History Atrial fibrillation Hyperlipidemia Hypertension Ischemic cardiomyopathy Myocardial infarction Obesity Obstructive sleep apnea of adult Primary insomnia Snoring Type 2 diabetes mellitus Surgical History History of cholecystectomy History of ERCP History of hernia repair History of left knee replacement History of partial knee replacement History of resection of 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 Mother Leukemia Social History household members: spouse Smoking Status: Former smoker alcohol intake: former Assessment & Plan Assessment & Plan narrative: 1. Acute dehydration, hypotension, resolving, sepsis ruled out. -patient presented with GI symptoms, decreased p.o. intake, low BP and near syncope episodes which seem secondary to recent initiation of mexiletine -improved BP and symptoms with gentle hydration and holding antihypertensives -IV now Hep-Locked -sepsis ruled out-discontinued antibiotics 2.? Acute kidney injury -patient baseline creatinine 1.8, 2.6 on admit now stable around 2.0-2.1 for the past few days. -continue to monitor. 3. Heart failure with reduced EF, chronic -limited echo shows no change from recent echo and patient does not appear in acute heart failure -restart metoprolol succinate at 50 mg b.i.d. (reduced from admission), furosemide 60 mg b.i.d. -also on lisinopril and entresto, resume either if able given hypotension but should not be on both. -resume aspirin 81 mg q.d., rosuvastatin 10 mg q.p.m. 4. History of V-tach -reviewed with Dr. Pérez, recommends starting patient back on a lower dose of mexiletine and also lower dose of his metoprolol -decrease mexiletine to 150 mg b.i.d., decrease metoprolol to 50 mg b.i.d. today with hypotension -continue telemetry -follow-up with Dr. Laughlin as outpatient 5. Atrial fibrillation, chronic -resume apixaban 2.5 mg b.i.d. 6. Insulin-requiring diabetes -on carb controlled diet -resume Lantus 25 units b.i.d. Fasting BG controlled no adjustments needed. -insulin aspartate 20 units b.i.d. with meals which is half his usual dose and insulin sliding scale, has some high post prandials so will adjust further today to 10 U AC. 7. Leukocytosis, acute on chronic -patient seems to run mildly elevated on his WBC, admitted with WBC 16 K and now near baseline -no evidence of infectious process -discontinued antibiotics as sepsis was ruled out. Dispo: continues to need optimization of his home medications prior to discharge with continued hypotension and weakness, as well as need for continued cardiac monitoring with recent episodes of ventricular tachycardia. Anticipate discharge home in another 1-2 days. Time Spent With Patient Critical Care time: I spent a total of [] minutes of critical care time on this patient's care today; this time is exclusive of procedural time. Quality VTE Deep Vein Thrombosis/Pulmonary Embolism Present on Admission: No
[2022-10-17] MEDS: INSULIN GLARGINE 100 UNIT/ML 3ML PEN 25 UNIT SUBCUT ×2 (10:06→21:07)
[2022-10-17] MEDS: TAMSULOSIN 0.4 MG CAPSULE PO (10:06)
[2022-10-17] MEDS: FINASTERIDE 5 MG TABLET PO (10:08)
[2022-10-17] MEDS: FUROSEMIDE 20 MG TABLET 60 MG PO ×2 (10:08→21:06)
[2022-10-17] MEDS: SODIUM CHLORIDE 0.9% FLUSH 10 ML IV ×2 (10:11→22:36)
[2022-10-17] MEDS: METOPROLOL ER 50 MG TABLET PO ×2 (10:16→21:08)
[2022-10-17] MEDS: INSULIN LISPRO 100 UNIT/ML 3ML VIAL 10 UNIT SUBCUT ×2 (11:54→17:01)
[2022-10-17] MEDS: MEXILITINE 1 EACH PO (16:10)
[2022-10-17] MEDS: ATORVASTATIN 20 MG TABLET PO (17:04)
[2022-10-17] MEDS: ASPIRIN EC 81 MG TABLET PO (17:04)
--- NOTE | 2022-10-17 18:17 | PC.NURSE ---
1815 Pt transferred to rm [id number], report given to Kori BECERRIL
[2022-10-18] VITALS (29 sets, daily range): BP systolic 84–156; BP diastolic 43–82; PULSE 57–92; RESP 13–36; TEMP 36.3–36.8; O2SAT 89–97
[2022-10-18 06:11] LABS: Alanine Aminotransferase 33 IU/L (<50); Albumin 3.5 g/dL (3.5-5.0); Albumin Globulin Ratio 1.1 (1.0-2.8); Alkaline Phosphatase 80 U/L (38-126); Aspartate Aminotransferase 30 IU/L (17-59); BUN Creatinine Ratio 16.3 (6-22); Bilirubin Total 0.9 mg/dL (0.2-1.3); Blood Urea Nitrogen 39 mg/dL (9-20); Calcium 8.5 mg/dL (8.4-10.2); Carbon Dioxide 26 mmol/L (22-32); Chloride 102 mmol/L (98-107); Estimated Glomerular Filt Rate 26 mL/min (>60); Globulin 3.1 g/dL (1.7-4.1); Glucose 147 mg/dL (80-110); HEMOLYSIS < 15 (0-50); Magnesium 2.2 mg/dL (1.6-2.3); Sodium 137 mmol/L (137-145); Total Protein 6.6 g/dL (6.3-8.2)
[2022-10-18 06:35] LABS: Add Manual Diff / Slide Review NO; Basophils Absolute Auto 0 /uL (0-100); Basophils Percent Auto 0.4 % (0-2); Eosinophils Absolute Auto 300 /uL (0-450); Eosinophils Percent Auto 2.2 % (2-4); Hematocrit 46.4 % (41-53); Hemoglobin 14.8 g/dL (13.5-17.5); Lymphocytes Absolute Auto 2400 /uL (1100-4500); Lymphocytes Percent Auto 20.4 % (25-40); Mean Corpuscular Hemoglobin 30.5 PG (26-34); Mean Corpuscular Volume 95.5 fL (80-100); Monocytes Absolute Auto 1700 /uL (0-900); Monocytes Percent Auto 14.8 % (3-14); Neutrophils Absolute Auto 7200 /uL (1500-7000); Neutrophils Percent Auto 62.2 % (50-75); Platelet Count 152 X10^3/uL (150-400); Red Blood Cell Count 4.86 X10^6/uL (4.5-5.9); Red Cell Distribution Width 14.7 % (11.6-14.8); White Blood Cell Count 11.7 X10^3/uL (4.5-11.0)
[2022-10-18] MEDS: APIXABAN 5 MG TABLET 2.5 MG PO ×2 (08:46→21:00)
--- NOTE | 2022-10-18 08:47 | PM.DS.1 ---
History of Present Illness History of Present Illness Date Patient Seen: 10/18/22 Chief complaint: Referred by Cardiology, Bad Reaction Narrative: Raul Ray ?is a 82-year-old male patient with a history coronary artery disease with stent placement, GA, ischemic cardiomyopathy, insulin-dependent diabetes, severe HOWIE, systolic CHF (EF 35-40%), atrial fibrillation and AICD implantation, recent hospitalization 09/2022 V-tach run of about 30 seconds he has had multiple episodes of AFib with RVR, frequent defibrillator discharges, ED 09/09/2022 cardioverted x2 for V-tach.? He was cardioverted twice today who presents to the ED- recently started on Mexilitine by his acid condenser after having episodes of ventricular tachycardia.? He states that after being on that medication for about 1 week he is started to have weakness, unsteadiness, dyspnea on exertion.? No chest pain.? No lower extremity swelling.? He also states he has been having some abdominal discomfort.? He is still passing flatus.? He is still having bowel movements.? No vomiting.? He has had a decrease in oral intake.? He contacted his acid condenser to told him to come to the emergency department for concerns about a bad reaction to his new medications. ? At the time of admit patient denies currently any chest pain, shortness at breath, headache, changes in vision, numbness, tingling, cough, sore throat, upper respiratory symptoms, fever, body aches, chills, abdominal pain, nausea, vomiting, diarrhea, constipation, urinary symptoms, skin injuries infections, any other changes to medication, or any recent illness injury or trauma. 97.9, 87/53, 70, 15, 96% on rm air. WBC 16.3, nuet 13,500, mono 1200, Na+139, bun 55, K+5.1, Aoc Director Combat Operations Officer 2.6, BS240, GFR 24, CCL: 26, Mag 2.5, Lactate WNL, TCK43, Trop WNL, Covid neg,Resp Panel Neg, No Gap, SOFA:2, CXR no acute cardiopulmonary process. Patient admitted for Sepsis with hypotensive shock MAP<65, Discharge Providers Provider Date of admission: 10/15/22 18:14 Discharge Date: 10/18/22 Primary care physician: Klever Gresham MD Discharge provider: Humza Contreras DO Summary Time Spent with Patient Time spent: Greater than 30 minutes Exam Vital Signs (past 8 hours): - 10/18/22 02:00 10/18/22 06:57 Temperature 98.1 F 98.0 F Pulse Rate 68 88 Respiratory Rate 16 14 Blood Pressure 101/54 L 93/50 L Pulse Oximetry 94 93 Oxygen Flow Rate 0 0 Oxygen Delivery Method Room Air,Nasal Cannula Oxygen Flow Rate 0 Narrative Exam Narrative: GEN: no acute distress, WDWN HEENT: moist mucous membranes, PERRL NECK: trachea midline, no JVD CV: regular rate and rhythm with no m/r/g. frequently changes between regular and irregularly irregular, on monitor appears to be afib and intermittently paced. PULM: clear bilaterally no wheezing rhonchi or rales. ABD: soft, nontender, nondistended, no organomegaly EXT: warm and well perfused with no edema NEURO: awake, alert, oriented, no focal deficits Objective Labs Result Diagrams: 10/18/22 05:27 10/18/22 05:27 Labs: Laboratory Results - last 24 hr 10/18/22 10/18/22 05:27 05:27 WBC 11.7 H RBC 4.86 Hgb 14.8 Hct 46.4 MCV 95.5 MCH 30.5 MCHC 32.0 RDW 14.7 Plt Count 152 Neut % (Auto) 62.2 Lymph % (Auto) 20.4 L [place] % (Auto) 14.8 H Eos % (Auto) 2.2 Baso % (Auto) 0.4 Neut # (Auto) 7200 H Lymph # (Auto) 2400 [place] # (Auto) 1700 H Eos # (Auto) 300 Baso # (Auto) 0 Sodium 137 Potassium 4.0 Chloride 102 Carbon Dioxide 26 BUN 39 H Creatinine 2.39 H Estimated GFR 26 L BUN/Creatinine Ratio 16.3 Glucose 147 H Calcium 8.5 Magnesium 2.2 Total Bilirubin 0.9 AST 30 ALT 33 Alkaline Phosphatase 80 Total Protein 6.6 Albumin 3.5 Globulin 3.1 Albumin/Globulin Ratio 1.1 PFSH Medical History Atrial fibrillation Hyperlipidemia Hypertension Ischemic cardiomyopathy Myocardial infarction Obesity Obstructive sleep apnea of adult Primary insomnia Snoring Type 2 diabetes mellitus Surgical History History of cholecystectomy History of ERCP History of hernia repair History of left knee replacement History of partial knee replacement History of resection of 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 Mother Leukemia Social History household members: spouse Smoking Status: Former smoker alcohol intake: former Discharge Plan Discharge orders & Medications Prescriptions: No Action rosuvastatin [Crestor] 10 MG tablet 10 mg PO QPM Qty: 0 coenzyme Q10 [CoQ-10] 100 mg Capsule 100 mg PO DAILY Qty: 0 aspirin 81 MG tablet,delayed release (DR/EC) 81 mg OR QPM Qty: 0 furosemide [Lasix] 40 mg tablet 60 mg PO BID Qty: 10 0RF insulin glargine 100 unit/mL solution 25 units subcut BID insulin aspart U-100 100 unit/mL solution 40 - 50 units subcut BID Label Comments: before meals lisinopril 40 mg Tablet 40 mg PO QPM [id number] [Osteo Bi-Flex (5-Loxin)] 1,500-400-100 mg-unit-mg Tablet 1 tab PO BID Label Comments: with a meal apixaban 2.5 mg tablet 2.5 mg PO BID finasteride 5 mg tablet 5 mg PO DAILY Entresto 49-51 mg tablet 1 tab PO DAILY tamsulosin 0.4 mg capsule 0.4 mg PO DAILY metoprolol succinate 200 mg tablet extended release 24 hr 200 mg PO BID 30 Days Qty: 60 0RF mexiletine 200 mg capsule 200 mg PO TID 30 Days Qty: 90 0RF Follow up/Referrals: Klever Gresham MD [Primary Care Provider] - Discharge Data Primary Care Provider: Klever Gresham Quality VTE Deep Vein Thrombosis/Pulmonary Embolism Present on Admission: No
[2022-10-18] MEDS: FINASTERIDE 5 MG TABLET PO (08:49)
[2022-10-18] MEDS: INSULIN LISPRO 100 UNIT/ML 3ML VIAL 10 UNIT SUBCUT ×3 (09:05→17:10)
[2022-10-18] MEDS: INSULIN GLARGINE 100 UNIT/ML 3ML PEN 25 UNIT SUBCUT ×2 (09:16→20:59)
[2022-10-18] MEDS: SODIUM CHLORIDE 0.9% 500 ML IV (11:00)
[2022-10-18] MEDS: MEXILITINE 1 EACH PO (12:22)
--- NOTE | 2022-10-18 13:40 | PC.NURSE ---
Addendum entered by Ivan Kaur R.N. 10/18/22 17:30: Called to room as Pt's heart rate spiked to 170's. Pt stated he was getting shocked by his pacemaker. Dr. Contreras and Coordinator Arlet diez with shipyard painter helper's and RN's in room to assist. Pt transferred to the ICU. Pt settled to ICU. Report given to Wiliam BECERRIL. and son at bedside. Original Note: Pt waking slowly. Once alert Pt is oriented and conversant. Pt continues with andrew. Dr. Contreras in to see Pt see New orders. Pt to d/c once he voids. Catheter d/c'd per orders in anticipation of d/c.
--- NOTE | 2022-10-18 16:39 | P.PN_ITS ---
Subjective Subjective Date Patient Seen: 10/18/22 Interval history: Patient was ready to dc home today after getting a 500cc bolus due to low BP. Then at approx 1630 he was attempting to pee and went into VT and his ICD shocked him 5x. He is now transferring to the ICU. Patient denies chest pain. Exam Vital Signs (past 8 hours): - 10/18/22 08:59 10/18/22 11:37 Pulse Rate 82 Pulse Rate [Orthostatic Lying] 82 Pulse Rate [Orthostatic Sitting] 83 Pulse Rate [Orthostatic Standing] 85 Blood Pressure 84/43 L Blood Pressure [Orthostatic Lying] 102/55 L Blood Pressure [Orthostatic Sitting] 107/59 L Blood Pressure [Orthostatic Standing] 101/57 L Oxygen Delivery Method Room Air,Nasal Cannula Oxygen Flow Rate 0 Narrative Exam Narrative: GEN: in mod distress following ICD discharge HEENT: moist mucous membranes, PERRL NECK: trachea midline, no JVD CV: regular rate and rhythm with no m/r/g. frequently changes between regular and irregularly irregular, on monitor appears to be afib and intermittently [place]. PULM: clear bilaterally no wheezing rhonchi or rales. ABD: soft, nontender, nondistended, no organomegaly EXT: warm and well perfused with no edema NEURO: awake, alert, oriented, no focal deficits Objective Labs Result Diagrams: 10/18/22 05:27 10/18/22 05:27 Labs: Laboratory Results - last 24 hr 10/18/22 10/18/22 05:27 05:27 WBC 11.7 H RBC 4.86 Hgb 14.8 Hct 46.4 MCV 95.5 MCH 30.5 MCHC 32.0 RDW 14.7 Plt Count 152 Neut % (Auto) 62.2 Lymph % (Auto) 20.4 L [place] % (Auto) 14.8 H Eos % (Auto) 2.2 Baso % (Auto) 0.4 Neut # (Auto) 7200 H Lymph # (Auto) 2400 [place] # (Auto) 1700 H Eos # (Auto) 300 Baso # (Auto) 0 Sodium 137 Potassium 4.0 Chloride 102 Carbon Dioxide 26 BUN 39 H Creatinine 2.39 H Estimated GFR 26 L BUN/Creatinine Ratio 16.3 Glucose 147 H Calcium 8.5 Magnesium 2.2 Total Bilirubin 0.9 AST 30 ALT 33 Alkaline Phosphatase 80 Total Protein 6.6 Albumin 3.5 Globulin 3.1 Albumin/Globulin Ratio 1.1 [facility] Medical History Atrial fibrillation Hyperlipidemia Hypertension Ischemic cardiomyopathy Myocardial infarction Obesity Obstructive sleep apnea of adult Primary insomnia Snoring Type 2 diabetes mellitus Surgical History History of cholecystectomy History of ERCP History of hernia repair History of left knee replacement History of partial knee replacement History of resection of 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 Mother Leukemia Social History household members: spouse Smoking Status: Former smoker alcohol intake: former Assessment & Plan Assessment & Plan narrative: 1. Acute dehydration causing orthostatic hypotension, resolving, sepsis ruled out. -patient presented with GI symptoms, decreased p.o. intake, low BP and near syncope episodes which seem secondary to recent initiation of mexiletine -improved BP and symptoms with gentle hydration and holding antihypertensives -responded well to 500cc bolus -sepsis ruled out-discontinued antibiotics 2.? Acute kidney injury -patient baseline creatinine 1.8, 2.6 on admit now stable around 2.0-2.1 for the past few days. -continue to monitor. 3. Heart failure with reduced EF, chronic -limited echo shows no change from recent echo and patient does not appear in acute heart failure -holding home entresto and lasix given hypotension -also on lisinopril and entresto, resume either if able given hypotension but should not be on both. -resume rosuvastatin 10 mg q.p.m. 4. VT burst with ICD discharge x5 -on 10/18 patient was attempting to urinate then went in to VT and shocked x5 -spoke with Dr. Laughlin through Dr. Collado who was able to reach him and he suggested starting lidocaine drip -continue telemetry -transfer to ICU -cardiology consulting 5. Atrial fibrillation, chronic -resume apixaban 2.5 mg b.i.d. 6. Insulin-requiring diabetes -on carb controlled diet -resume Lantus 25 units b.i.d. Fasting BG controlled no adjustments needed. -insulin aspartate 20 units b.i.d. with meals which is half his usual dose and insulin sliding scale, has some high post prandials so will adjust further today to 10 U AC. 7. Leukocytosis, acute on chronic -patient seems to run mildly elevated on his WBC, admitted with WBC 16 K and now near baseline -no evidence of infectious process -discontinued antibiotics as sepsis was ruled out. Dispo: Unclear given VT with ICD discharges and now in the ICU. Time Spent With Patient Critical Care time: I spent a total of [] minutes of critical care time on this patient's care today; this time is exclusive of procedural time. Quality VTE Deep Vein Thrombosis/Pulmonary Embolism Present on Admission: No
[2022-10-18] MEDS: LIDOCAINE IV (17:13)
[2022-10-18] MEDS: DEXTROSE 5% IV (17:13)
[2022-10-18] MEDS: WATER IV (17:13)
[2022-10-18] MEDS: ATORVASTATIN 20 MG TABLET PO (17:18)
--- NOTE | 2022-10-18 17:38 | PC.NURSE ---
Pt upgraded to ICU. Started on Lidocaine gtt 1mg/min. Per Dr. Contreras, do not titrate and continue at current rate until told otherwise.
[2022-10-18] MEDS: LIDOCAINE 2% INJ MDV 20ML 5 ML IV (18:24)
[2022-10-18] MEDS: FUROSEMIDE 20 MG TABLET 60 MG PO (20:55)
[2022-10-18] MEDS: METOPROLOL ER 50 MG TABLET PO (21:01)
[2022-10-19] VITALS (87 sets, daily range): BP systolic 107–156; BP diastolic 55–81; PULSE 69–85; RESP 11–36; TEMP 36–36.4; O2SAT 85–98
--- NOTE | 2022-10-19 03:46 | PC.NURSE ---
Patient having 11 beat run of v-tach, remains asymptomatic to it. Dr. Kelly notified of above and new orders noted. Stat labs ordered and awaiting results.
[2022-10-19 04:56] LABS: Add Manual Diff / Slide Review NO; Basophils Absolute Auto 0 /uL (0-100); Basophils Percent Auto 0.4 % (0-2); Eosinophils Absolute Auto 300 /uL (0-450); Eosinophils Percent Auto 2.1 % (2-4); Hemoglobin 14.3 g/dL (13.5-17.5); Lymphocytes Absolute Auto 2500 /uL (1100-4500); Lymphocytes Percent Auto 20.7 % (25-40); Mean Corpuscular HGB Conc 33.2 % (30-36); Mean Corpuscular Hemoglobin 31.3 PG (26-34); Mean Corpuscular Volume 94.4 fL (80-100); Monocytes Absolute Auto 1400 /uL (0-900); Monocytes Percent Auto 12.2 % (3-14); Neutrophils Absolute Auto 7700 /uL (1500-7000); Neutrophils Percent Auto 64.6 % (50-75); Platelet Count 142 X10^3/uL (150-400); Red Blood Cell Count 4.56 X10^6/uL (4.5-5.9); Red Cell Distribution Width 14.7 % (11.6-14.8); White Blood Cell Count 11.9 X10^3/uL (4.5-11.0)
[2022-10-19 05:03] LABS: BUN Creatinine Ratio 17.7 (6-22); Blood Urea Nitrogen 38 mg/dL (9-20); Calcium 8.5 mg/dL (8.4-10.2); Carbon Dioxide 28 mmol/L (22-32); Chloride 97 mmol/L (98-107); Estimated Glomerular Filt Rate 30 mL/min (>60); Glucose 196 mg/dL (80-110); HEMOLYSIS < 15 (0-50); Magnesium 2.1 mg/dL (1.6-2.3); Potassium 4.1 mmol/L (3.4-5.1); Sodium 134 mmol/L (137-145)
[2022-10-19] MEDS: INSULIN GLARGINE 100 UNIT/ML 3ML PEN 25 UNIT SUBCUT ×2 (08:23→20:44)
[2022-10-19] MEDS: INSULIN LISPRO 100 UNIT/ML 3ML VIAL 10 UNIT SUBCUT ×3 (08:24→17:23)
[2022-10-19] MEDS: APIXABAN 5 MG TABLET 2.5 MG PO ×2 (08:30→20:37)
[2022-10-19] MEDS: FUROSEMIDE 20 MG TABLET 60 MG PO ×2 (08:31→20:44)
[2022-10-19] MEDS: FINASTERIDE 5 MG TABLET PO (08:32)
[2022-10-19] MEDS: METOPROLOL ER 50 MG TABLET PO ×2 (08:32→20:43)
[2022-10-19] MEDS: TAMSULOSIN 0.4 MG CAPSULE PO (08:33)
--- NOTE | 2022-10-19 09:21 | P.PN_ITS ---
Subjective Subjective Interval history: 82-year-old gentleman with coronary artery disease with previous stenting, chronic systolic congestive heart failure with ejection fraction 35 to 40%, ischemic cardiomyopathy, atrial fibrillation, status post pacemaker and AICD placement, insulin-dependent diabetes, and severe obstructive sleep apnea who was admitted with side effects related to antiarrhythmic therapies as well as urinary retention. Discharge was planned yesterday, but when patient attempted to void after his Francisco catheter was removed he sustained 5 shocks from his AICD secondary to runs of ventricular tachycardia. This morning, patient reports he feels pretty rough. He did not sleep at all last night. He has had frequent urinary ?dribbling?. He states he feels worn out, like he put his hand in an electric socket. He does have some mild chest discomfort secondary to his cardioversions, but denies any anginal symptoms. No shortness of breath. Exam Vital Signs (past 8 hours): - 10/19/22 01:30 10/19/22 01:45 10/19/22 02:00 Temperature Pulse Rate 70 74 Respiratory Rate 18 16 Blood Pressure 135/60 Pulse Oximetry 92 96 10/19/22 02:00 10/19/22 02:15 10/19/22 02:30 Temperature Pulse Rate 71 69 80 Respiratory Rate 18 19 14 Blood Pressure Pulse Oximetry 95 96 96 10/19/22 02:45 10/19/22 03:00 10/19/22 03:00 Temperature Pulse Rate 85 74 Respiratory Rate 20 15 Blood Pressure 127/76 Pulse Oximetry 97 95 10/19/22 05:29 10/19/22 03:15 10/19/22 03:30 Temperature 97.5 F L Pulse Rate 70 71 Respiratory Rate 19 11 L Blood Pressure Pulse Oximetry 96 95 10/19/22 03:45 10/19/22 04:00 10/19/22 04:00 Temperature Pulse Rate 80 72 Respiratory Rate 25 H 15 Blood Pressure 126/60 Pulse Oximetry 96 94 10/19/22 04:15 10/19/22 04:30 10/19/22 04:45 Temperature Pulse Rate 70 75 75 Respiratory Rate 16 34 H 12 Blood Pressure Pulse Oximetry 96 95 95 10/19/22 05:00 10/19/22 05:00 10/19/22 05:15 Temperature Pulse Rate 72 71 Respiratory Rate 11 L 19 Blood Pressure 114/61 Pulse Oximetry 95 94 10/19/22 05:30 10/19/22 05:45 10/19/22 06:00 Temperature Pulse Rate 69 83 84 Respiratory Rate 18 27 H 23 Blood Pressure Pulse Oximetry 95 96 97 10/19/22 06:01 10/19/22 06:01 10/19/22 06:15 Temperature Pulse Rate 81 75 Respiratory Rate 19 14 Blood Pressure 137/81 Pulse Oximetry 96 96 10/19/22 06:30 10/19/22 07:00 10/19/22 07:00 Temperature Pulse Rate 71 69 Respiratory Rate 14 19 Blood Pressure 151/72 H Pulse Oximetry 96 95 10/19/22 07:15 10/19/22 07:30 10/19/22 08:32 Temperature Pulse Rate 81 69 72 Respiratory Rate 17 19 Blood Pressure 140/68 Pulse Oximetry 97 96 Oxygen Delivery Method Room Air Oxygen Flow Rate 0 Narrative Exam Narrative: GEN: Elderly male, pleasant, Alert and oriented x 3, NAD HEENT:NC, Face symmetric CHEST: Respiratory excursions symmetric, CTAB CV: RRR, no M/R/G ABD: Soft, NT/ND, BT present in all 4 quadrants, body habitus limits exam EXTR: warm, well perfused, no C/C/E SKIN: warm and dry, no rash NEURO: Alert and oriented x 3, nonfocal Objective Labs Result Diagrams: 10/19/22 04:08 10/19/22 04:08 Labs: Laboratory Results - last 24 hr 10/19/22 10/19/22 04:08 04:08 WBC 11.9 H RBC 4.56 Hgb 14.3 Hct 43.0 MCV 94.4 MCH 31.3 MCHC 33.2 RDW 14.7 Plt Count 142 L Neut % (Auto) 64.6 Lymph % (Auto) 20.7 L [place] % (Auto) 12.2 Eos % (Auto) 2.1 Baso % (Auto) 0.4 Neut # (Auto) 7700 H Lymph # (Auto) 2500 [place] # (Auto) 1400 H Eos # (Auto) 300 Baso # (Auto) 0 Sodium 134 L Potassium 4.1 Chloride 97 L Carbon Dioxide 28 BUN 38 H Creatinine 2.15 H Estimated GFR 30 L BUN/Creatinine Ratio 17.7 Glucose 196 H Calcium 8.5 Magnesium 2.1 PFSH Medical History Atrial fibrillation Hyperlipidemia Hypertension Ischemic cardiomyopathy Myocardial infarction Obesity Obstructive sleep apnea of adult Primary insomnia Snoring Type 2 diabetes mellitus Surgical History History of cholecystectomy History of ERCP History of hernia repair History of left knee replacement History of partial knee replacement History of resection of 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 Mother Leukemia Social History household members: spouse Smoking Status: Former smoker alcohol intake: former Assessment & Plan Assessment & Plan narrative: 1. Ventricular tachycardia Patient sustained 5 cardioversions from his AICD yesterday afternoon. He is on a lidocaine drip at 1 milligram/kilogram per hour. Although he had a few beat runs of VT overnight, he did not require any additional cardioversion. I discussed the case with Dr. Potter, cardiology who obtained the plan of care from Dr. Laughlin, cardiology. Patient is to remain on a lidocaine cream drip for 48 hours, then resume oral mexiletine and metoprolol at the reduced dosing schedule. 2. Chronic systolic congestive heart failure patient remains on goal-directed therapy with Entresto, Lasix, metoprolol, aspirin, and Crestor on an outpatient basis. Blood pressures have been stable. Continues on Lasix and metoprolol. He is receiving atorvastatin in the hosp [facility]. 3. Atrial fibrillation on chronic anticoagulation Continue apixaban. 4. Diabetes mellitus type 2 Insulin dependent. He is on Lantus 25 units subQ b.i.d.. Blood sugars have ranged from the 180s to 250s. Continue fingersticks and sliding scale. Continue controlled carb diet. 5. Dysuria/urinary hesitancy Continue Flomax. Will send a UA. 6. CKD 3 Creatinine stable at 2.15 today. GFR appears to maintain in the mid-to-high 30s at baseline. 7. Leukocytosis Mild and stable at 11.9 Code status Full Prophylaxis Apixaban Disposition Pending Time Spent With Patient Critical Care time: I spent a total of [] minutes of critical care time on this patient's care today; this time is exclusive of procedural time. Quality VTE Deep Vein Thrombosis/Pulmonary Embolism Present on Admission: No
[2022-10-19 10:03] LABS: Appearance Urine UA CLEAR; Bilirubin Urine UA NEGATIVE (NEGATIVE); Color Urine UA YELLOW; Glucose Urine UA 1+ g/dL (Negative); Ketones Urine UA NEGATIVE (NEGATIVE); Leukocyte Esterase Urine UA TRACE (NEGATIVE); Nitrite Urine UA NEGATIVE (Negative); Occult Blood Urine UA TRACE-INTACT (Negative); Protein Urine UA NEGATIVE (Negative); Specific Gravity Urine UA 1.015 (1.000-1.035); Urobilinogen Urine UA 0.2 E.U./dL (0.2)
[2022-10-19 10:30] LABS: Amorphous Sediment Urine 1+; Bacteria Urine None Seen; Culture Indicated Urine Cult Not Indicated; RBC Urine 0-1/HPF (0-5/HPF); WBC Urine 0-1/HPF (0-5/HPF)
[2022-10-19] MEDS: DEXTROSE 5% IV (17:25)
[2022-10-19] MEDS: WATER IV (17:25)
[2022-10-19] MEDS: LIDOCAINE IV (17:25)
[2022-10-19] MEDS: ATORVASTATIN 20 MG TABLET PO (17:27)
[2022-10-20] VITALS (20 sets, daily range): BP systolic 107–141; BP diastolic 56–82; PULSE 69–74; RESP 14–25; TEMP 36.4–36.8; O2SAT 92–99
[2022-10-20 05:02] LABS: Add Manual Diff / Slide Review NO; Basophils Absolute Auto 100 /uL (0-100); Basophils Percent Auto 0.5 % (0-2); Eosinophils Absolute Auto 300 /uL (0-450); Eosinophils Percent Auto 2.5 % (2-4); Hematocrit 45.5 % (41-53); Lymphocytes Absolute Auto 2100 /uL (1100-4500); Lymphocytes Percent Auto 19.4 % (25-40); Mean Corpuscular HGB Conc 33.1 % (30-36); Mean Corpuscular Hemoglobin 31.1 PG (26-34); Monocytes Absolute Auto 1600 /uL (0-900); Monocytes Percent Auto 14.6 % (3-14); Neutrophils Absolute Auto 6900 /uL (1500-7000); Platelet Count 153 X10^3/uL (150-400); Red Blood Cell Count 4.84 X10^6/uL (4.5-5.9); Red Cell Distribution Width 14.9 % (11.6-14.8); White Blood Cell Count 10.9 X10^3/uL (4.5-11.0)
[2022-10-20 05:07] LABS: BUN Creatinine Ratio 19.4 (6-22); Blood Urea Nitrogen 42 mg/dL (9-20); Calcium 8.6 mg/dL (8.4-10.2); Carbon Dioxide 29 mmol/L (22-32); Chloride 96 mmol/L (98-107); Estimated Glomerular Filt Rate 29 mL/min (>60); Glucose 171 mg/dL (80-110); HEMOLYSIS < 15 (0-50); Potassium 3.9 mmol/L (3.4-5.1); Sodium 133 mmol/L (137-145)
--- NOTE | 2022-10-20 06:00 | P.PN_ITS ---
Subjective Subjective Interval history: 82-year-old gentleman with coronary artery disease with previous stenting, chronic systolic congestive heart failure with ejection fraction 35 to 40%, ischemic cardiomyopathy, atrial fibrillation, status post pacemaker and AICD placement, insulin-dependent diabetes, and severe obstructive sleep apnea who was admitted with side effects related to antiarrhythmic therapies as well as urinary retention.? Discharge was planned yesterday, but when patient attempted to void after his Francisco catheter was removed he sustained 5 shocks from his AICD secondary to runs of ventricular tachycardia. This he reports he is feeling significantly improved. He continues to sleep poorly. He reports his urine stream is improving. No anginal symptoms. No shortness of breath. Exam Vital Signs (past 8 hours): - 10/19/22 22:01 10/19/22 22:01 10/19/22 23:00 Temperature Pulse Rate 69 Respiratory Rate 20 Blood Pressure 107/58 L 118/65 Pulse Oximetry 93 Oxygen Delivery Method Oxygen Flow Rate 10/19/22 23:00 10/20/22 00:00 10/20/22 00:00 Temperature Pulse Rate 69 69 Respiratory Rate 17 17 Blood Pressure 107/56 L Pulse Oximetry 93 96 Oxygen Delivery Method Oxygen Flow Rate 2 10/20/22 00:00 10/20/22 01:00 10/20/22 01:00 Temperature Pulse Rate 69 Respiratory Rate 21 Blood Pressure 113/65 Pulse Oximetry 96 Oxygen Delivery Method Nasal Cannula Oxygen Flow Rate 2 10/20/22 02:00 10/20/22 02:00 10/20/22 03:00 Temperature Pulse Rate 69 Respiratory Rate 18 Blood Pressure 112/68 124/59 L Pulse Oximetry 96 Oxygen Delivery Method Oxygen Flow Rate 2 10/20/22 03:00 10/20/22 04:15 10/20/22 04:00 Temperature Pulse Rate 69 Respiratory Rate 16 Blood Pressure 140/63 Pulse Oximetry 96 Oxygen Delivery Method Nasal Cannula Oxygen Flow Rate 2 10/20/22 04:00 10/20/22 05:00 10/20/22 05:00 Temperature 97.6 F Pulse Rate 69 74 Respiratory Rate 14 19 Blood Pressure 123/64 Pulse Oximetry 95 94 Oxygen Delivery Method Oxygen Flow Rate 2 Oxygen Delivery Method Nasal Cannula Oxygen Flow Rate 2 Narrative Exam Narrative: GEN:? Elderly male, pleasant, Alert and oriented x 3, NAD HEENT:NC, Face symmetric CHEST: Respiratory excursions symmetric, CTAB CV: RRR, no M/R/G ABD: Soft, NT/ND, BT present in all 4 quadrants, body habitus limits exam EXTR: warm, well perfused, no C/C/E SKIN: warm and dry, no rash NEURO: Alert and oriented x 3, nonfocal Objective Labs Result Diagrams: 10/20/22 04:26 10/20/22 04:26 Labs: Laboratory Results - last 24 hr 10/19/22 10/20/22 10/20/22 09:05 04:26 04:26 WBC 10.9 RBC 4.84 Hgb 15.0 Hct 45.5 MCV 94.0 MCH 31.1 MCHC 33.1 RDW 14.9 H Plt Count 153 Neut % (Auto) 63.0 Lymph % (Auto) 19.4 L [place] % (Auto) 14.6 H Eos % (Auto) 2.5 Baso % (Auto) 0.5 Neut # (Auto) 6900 Lymph # (Auto) 2100 [place] # (Auto) 1600 H Eos # (Auto) 300 Baso # (Auto) 100 Sodium 133 L Potassium 3.9 Chloride 96 L Carbon Dioxide 29 BUN 42 H Creatinine 2.16 H Estimated GFR 29 L BUN/Creatinine Ratio 19.4 Glucose 171 H Calcium 8.6 Urine Color Yellow Urine Appearance Clear Urine pH 5.0 Ur Specific [place] 1.015 Urine Protein Negative Urine Glucose (UA) 1+ H Urine Ketones Negative Urine Occult Blood Trace-intact Urine Nitrate Negative Urine Bilirubin Negative Urine Urobilinogen 0.2 Ur Leukocyte Esterase Trace H Urine RBC 0-1/hpf Urine WBC 0-1/hpf Amorphous Sediment 1+ Urine Bacteria None seen Ur Culture Indicated? Cult not indicated [facility] Medical History Atrial fibrillation Hyperlipidemia Hypertension Ischemic cardiomyopathy Myocardial infarction Obesity Obstructive sleep apnea of adult Primary insomnia Snoring Type 2 diabetes mellitus Surgical History History of cholecystectomy History of ERCP History of hernia repair History of left knee replacement History of partial knee replacement History of resection of 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 Mother Leukemia Social History household members: spouse Smoking Status: Former smoker alcohol intake: former Assessment & Plan Assessment & Plan narrative: 1. Ventricular tachycardia Patient sustained 5 cardioversions from his AICD 9. .? He is on a lidocaine drip at 1 milligram/kilogram per hour. Continues lidocaine drip for a total of 48 hours, which will complete at about 5:00 p.m. today. Will then resume mexiletine 200 mg b.i.d.. He continues on Toprol-XL 50 mg daily. Should he have any additional discharges from his AICD overnight on reduced dosing of his medications compared with admission, will need follow-up recommendations from Cardiology. Otherwise, anticipate discharge home tomorrow. 2. Chronic systolic congestive heart failure patient remains on goal-directed therapy with Entresto, Lasix, metoprolol, aspirin, and Crestor on an outpatient basis.? Blood pressures have been stable.? Continues on Lasix and metoprolol.? He is receiving atorvastatin in the hospital. 3. Atrial fibrillation on chronic anticoagulation Continue apixaban. Remains rate controlled. 4. Diabetes mellitus type 2 Insulin dependent.? He is on Lantus 25 units subQ b.i.d..? Blood sugars have ranged from the 180s to 280s.? Continue fingersticks and sliding scale.? Continue controlled carb diet. May need his Lantus adjusted prior to discharge, depending on his blood sugars over the next 24 hours. 5. Dysuria/urinary hesitancy Continue Flomax.? UA was negative for infection. 6. CKD 3 Creatinine stable at 2.16 today.? GFR appears to maintain in the mid-to-high 30s at baseline. 7. Leukocytosis Resolved at 10.9 today down from 11.9 yesterday. Code status Full Prophylaxis Apixaban Disposition Possible discharge home tomorrow if no additional arrhythmias. Time Spent With Patient Critical Care time: I spent a total of [] minutes of critical care time on this patient's care today; this time is exclusive of procedural time. Quality VTE Deep Vein Thrombosis/Pulmonary Embolism Present on Admission: No
[2022-10-20] MEDS: INSULIN LISPRO 100 UNIT/ML 3ML VIAL 10 UNIT SUBCUT ×3 (08:15→17:58)
[2022-10-20] MEDS: TAMSULOSIN 0.4 MG CAPSULE PO (08:43)
[2022-10-20] MEDS: APIXABAN 5 MG TABLET 2.5 MG PO ×2 (08:43→20:47)
[2022-10-20] MEDS: METOPROLOL ER 50 MG TABLET PO ×2 (08:43→20:47)
[2022-10-20] MEDS: FUROSEMIDE 20 MG TABLET 60 MG PO ×2 (08:43→20:46)
[2022-10-20] MEDS: INSULIN GLARGINE 100 UNIT/ML 3ML PEN 25 UNIT SUBCUT (08:44)
[2022-10-20] MEDS: FINASTERIDE 5 MG TABLET PO (08:44)
[2022-10-20] MEDS: SODIUM CHLORIDE 0.9% FLUSH 10 ML IV ×2 (09:10→20:48)
--- NOTE | 2022-10-20 11:38 | CM.DPC ---
DCP Cont: Per MD, pt's discharge was cancelled due to pt's heart rate and pacemaker shocks and moved to ICU. Per Teleintensivist recommendation of Lidocain 48 hrs will be up at 1700 this evening and then will switch to lower dose of home meds and if pt's heart rate and cardiac needs stabilized then can likely d/c home tomorrow 10/21. Pt is active and independent at baseline and has had supportive spouse bedside and MD does not anticipate any d/c needs or barriers to discharge. Plan: SW to follow for plan of likely home via spouse POV tomorrow Friday if pt remains medically stable and no d/c needs at this time. Aggie Martin MSW
[2022-10-20] MEDS: INSULIN LISPRO 100 UNIT/ML 3ML VIAL SUBCUT (12:18)
[2022-10-20] MEDS: ATORVASTATIN 20 MG TABLET PO (18:00)
[2022-10-20] MEDS: MEXILITINE 1 EACH PO (20:46)
[2022-10-21] VITALS: BP 149/68; PULSE 74; RESP 20; TEMP 36.3; O2SAT 97
[2022-10-21 04:00] VITALS: BP 152/83; PULSE 72; RESP 19; TEMP 36.4; O2SAT 96
[2022-10-21 06:09] LABS: Add Manual Diff / Slide Review NO; Basophils Absolute Auto 0 /uL (0-100); Basophils Percent Auto 0.4 % (0-2); Eosinophils Absolute Auto 300 /uL (0-450); Eosinophils Percent Auto 2.5 % (2-4); Hematocrit 48.5 % (41-53); Hemoglobin 15.6 g/dL (13.5-17.5); Lymphocytes Absolute Auto 2300 /uL (1100-4500); Lymphocytes Percent Auto 20.7 % (25-40); Mean Corpuscular HGB Conc 32.1 % (30-36); Mean Corpuscular Hemoglobin 30.9 PG (26-34); Mean Corpuscular Volume 96.2 fL (80-100); Monocytes Absolute Auto 1500 /uL (0-900); Monocytes Percent Auto 13.4 % (3-14); Neutrophils Absolute Auto 7100 /uL (1500-7000); Platelet Count 168 X10^3/uL (150-400); Red Blood Cell Count 5.04 X10^6/uL (4.5-5.9); Red Cell Distribution Width 14.7 % (11.6-14.8); White Blood Cell Count 11.2 X10^3/uL (4.5-11.0)
[2022-10-21 06:11] LABS: BUN Creatinine Ratio 21.8 (6-22); Blood Urea Nitrogen 46 mg/dL (9-20); Calcium 8.8 mg/dL (8.4-10.2); Carbon Dioxide 32 mmol/L (22-32); Chloride 95 mmol/L (98-107); Estimated Glomerular Filt Rate 30 mL/min (>60); Glucose 150 mg/dL (80-110); HEMOLYSIS 22 (0-50); Potassium 3.9 mmol/L (3.4-5.1); Sodium 136 mmol/L (137-145)
[2022-10-21 07:00] VITALS: BP 145/75; PULSE 70; RESP 18; TEMP 36.4; O2SAT 94
--- NOTE | 2022-10-21 07:06 | PM.DS.1 ---
History of Present Illness History of Present Illness Date Patient Seen: 10/21/22 Chief complaint: Referred by Cardiology, Bad Reaction Narrative: Raul Ray ?is a 82-year-old male patient with a history coronary artery disease with stent placement, SD, ischemic cardiomyopathy, insulin-dependent diabetes, severe HOWIE, systolic CHF (EF 35-40%), atrial fibrillation and AICD implantation, recent hospitalization 09/2022 V-tach run of about 30 seconds he has had multiple episodes of AFib with RVR, frequent defibrillator discharges, ED 09/09/2022 cardioverted x2 for V-tach.? He was cardioverted twice today who presents to the ED- recently started on Mexilitine by his installation drafter after having episodes of ventricular tachycardia.? He states that after being on that medication for about 1 week he is started to have weakness, unsteadiness, dyspnea on exertion.? No chest pain.? No lower extremity swelling.? He also states he has been having some abdominal discomfort.? He is still passing flatus.? He is still having bowel movements.? No vomiting.? He has had a decrease in oral intake.? He contacted his installation drafter to told him to come to the emergency department for concerns about a bad reaction to his new medications. ? At the time of admit patient denies currently any chest pain, shortness at breath, headache, changes in vision, numbness, tingling, cough, sore throat, upper respiratory symptoms, fever, body aches, chills, abdominal pain, nausea, vomiting, diarrhea, constipation, urinary symptoms, skin injuries infections, any other changes to medication, or any recent illness injury or trauma. 97.9, 87/53, 70, 15, 96% on rm air. WBC 16.3, nuet 13,500, mono 1200, Na+139, bun 55, K+5.1, Rail Car Maintenance Mechanic 2.6, BS240, GFR 24, CCL: 26, Mag 2.5, Lactate WNL, TCK43, Trop WNL, Covid neg,Resp Panel Neg, No Gap, SOFA:2, CXR no acute cardiopulmonary process. Patient admitted for Sepsis with hypotensive shock MAP<65, Discharge Providers Provider Date of admission: 10/15/22 18:14 Discharge Date: 10/21/22 Primary care physician: Klever Gresham MD Discharge provider: Humza Contreras DO Summary Hospital Course Discharge Diagnosis: 1. Ventricular tachycardia Patient sustained 5 cardioversions from his AICD 9 right before he was set to discharge home. Completed 48 hours of lidocaine drip.? Then resumed his mexiletine 200 mg TID dosing after speaking with Dr. Laughlin.? He continues on Toprol-XL 50 mg BID.? Had no further ICD discharges. 2. Chronic systolic congestive heart failure patient remains on goal-directed therapy with Entresto, Lasix, metoprolol, aspirin, and Crestor on an outpatient basis.? Blood pressures have been stable.? Continues on Lasix and metoprolol.? He is receiving atorvastatin in the hospital. Held his home lasix on discharge. 3. Atrial fibrillation on chronic anticoagulation Continue apixaban.? Remains rate controlled. 4. Diabetes mellitus type 2 Insulin dependent.? He is on Lantus 25 units subQ b.i.d.? Blood sugars have ranged from the 180s to 280s.? Continue fingersticks and sliding scale.? Continue controlled carb diet.? May need his Lantus adjusted prior to discharge, depending on his blood sugars over the next 24 hours. 5. Dysuria/urinary hesitancy Continue Flomax.? UA was negative for infection. 6. CKD 3 Creatinine stable at 2.16 today.? GFR appears to maintain in the mid-to-high 30s at baseline. 7. Leukocytosis Resolved at 10.9. Hospital Course: Admitted for nausea and lightheadedness which was thought to be from his mexiletine medication. However patient noted he had 2.5 weeks of no symptoms while on the mexiletine and then over the past several days before admission developed nausea, lightheadedness and dizziness. Thought to be more related to dehydration as patient drinking very little water and continuing to take his lasix. He was very orthostatic in the hospital as well, which improved with some IVF boluses. Just before discharge, patient had morales removed and he was attempting to pee and he went into VT and was shocked by his ICD 5x. Spoke with his installation drafter who recommended admitting to ICU for 48 hours of lidocaine drip. He tolerated this well, then transitioned back to his mexiletine at 200mg TID dosing along with metop XL 50 BID. He will f/u with Dr. Duncan at end of Oct in clinic and Dr. Laughlin his EP installation drafter on Nov 14, 2022. Time Spent with Patient Time spent: Greater than 30 minutes Exam Vital Signs (past 8 hours): Oxygen Delivery Method Room Air Oxygen Flow Rate 2 Narrative Exam Narrative: GEN:? Elderly male, pleasant, Alert and oriented x 3, NAD HEENT:NC, Face symmetric CHEST: Respiratory excursions symmetric, CTAB CV: RRR, no M/R/G ABD: Soft, NT/ND, BT present in all 4 quadrants, body habitus limits exam EXTR: warm, well perfused, no C/C/E SKIN: warm and dry, no rash NEURO: Alert and oriented x 3, nonfocal Objective Labs Result Diagrams: 10/21/22 04:26 10/21/22 04:26 [facility] Medical History Atrial fibrillation Hyperlipidemia Hypertension Ischemic cardiomyopathy Myocardial infarction Obesity Obstructive sleep apnea of adult Primary insomnia Snoring Type 2 diabetes mellitus Surgical History History of cholecystectomy History of ERCP History of hernia repair History of left knee replacement History of partial knee replacement History of resection of 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 Mother Leukemia Social History household members: spouse Smoking Status: Former smoker alcohol intake: former Discharge Plan Discharge Plan Patient Disposition: Home Provider Discharge Comment: You were admitted due to possible side-effects of your mexiletine medication, but I'm inclined to think it was more likely dehydration. Please continue mexiletine 200mg 3x per day and hold your lasix until you can see Dr. Laughlin in office to restart these. You may continue taking your entresto if your blood pressure isn't too low. I've If you get shocked again, please try to go to [facility] where Dr. Laughlin can see you on Nov 14. Discharge orders & Medications Prescriptions: New metoprolol succinate 50 mg Tablet Extended Release 24 Hr 50 mg PO BID Qty: 180 0RF Entresto 49-51 mg tablet 1 tab PO BID Qty: 60 0RF Continued rosuvastatin [Crestor] 10 MG tablet 10 mg PO QPM Qty: 0 coenzyme Q10 [CoQ-10] 100 mg Capsule 100 mg PO DAILY Qty: 0 aspirin 81 MG tablet,delayed release (DR/EC) 81 mg OR QPM Qty: 0 insulin glargine 100 unit/mL solution 25 units subcut BID insulin aspart U-100 100 unit/mL solution 40 - 50 units subcut BID Label Comments: before meals [id number] [Osteo Bi-Flex (5-Loxin)] 1,500-400-100 mg-unit-mg Tablet 1 tab PO BID Label Comments: with a meal apixaban 2.5 mg tablet 2.5 mg PO BID finasteride 5 mg tablet 5 mg PO DAILY tamsulosin 0.4 mg capsule 0.4 mg PO DAILY Discontinued furosemide [Lasix] 40 mg tablet 60 mg PO BID Qty: 10 0RF lisinopril 40 mg Tablet 40 mg PO QPM Entresto 49-51 mg tablet 1 tab PO DAILY metoprolol succinate 200 mg tablet extended release 24 hr 200 mg PO BID 30 Days Qty: 60 0RF mexiletine 200 mg capsule 200 mg PO TID 30 Days Qty: 90 0RF Follow up/Referrals: Klever Gresham MD [Primary Care Provider] - 2 Weeks Benny Laughlin MD [Physician] - 1 Week Diet/Activity/Treatments Diet: Diet as Tolerated Diet comment: Heart Healthy Activity: As tolerated Oxygen: N/A Visit Report/Discharge Packet Instructions: DI for Heart Failure, DI for Automatic Cardioverter/Defibrillator Implantation, DI for Ventricular Tachycardia Discharge Data Primary Care Provider: Klever Gresham Quality VTE Deep Vein Thrombosis/Pulmonary Embolism Present on Admission: No
[2022-10-21] MEDS: INSULIN LISPRO 100 UNIT/ML 3ML VIAL SUBCUT ×2 (08:42→12:36)
[2022-10-21] MEDS: INSULIN LISPRO 100 UNIT/ML 3ML VIAL 10 UNIT SUBCUT ×2 (08:42→12:36)
[2022-10-21] MEDS: INSULIN GLARGINE 100 UNIT/ML 3ML PEN 25 UNIT SUBCUT (08:43)
[2022-10-21] MEDS: MEXILITINE 1 EACH PO (08:43)
[2022-10-21] MEDS: APIXABAN 5 MG TABLET 2.5 MG PO (08:43)
[2022-10-21] MEDS: TAMSULOSIN 0.4 MG CAPSULE PO (08:46)
[2022-10-21] MEDS: FINASTERIDE 5 MG TABLET PO (08:46)
[2022-10-21] MEDS: FUROSEMIDE 20 MG TABLET 60 MG PO (08:46)
[2022-10-21] MEDS: METOPROLOL ER 50 MG TABLET PO (08:46)
[2022-10-21] MEDS: SODIUM CHLORIDE 0.9% FLUSH 10 ML IV (08:46)
[2022-10-21 12:11] LABS: Magnesium 2.3 mg/dL (1.6-2.3)
[2022-10-21] MEDS: POTASSIUM CHLORIDE 20 MEQ TAB 40 MEQ PO (12:36)
== END 2022-10-21 14:55 | disposition home or self-care (01) | DRG 309 ==
LOC: ED 18:12 → AC 18:15 → ICU 21:06 → AC 10-17 17:37 → ICU 10-18 16:55
PROVIDERS: Family Medicine; Internal Medicine; Nurse Practitioner Family; Admitting Provider Student in an Organized Health Care Education/Training Program; Emergency Provider Emergency Medicine; Family Provider Internal Medicine; PCP Internal Medicine; Referring Provider Emergency Medicine; Visit Provider Student in an Organized Health Care Education/Training Program
DX: I47.20 Ventricular tachycardia, unspecified (principal); I13.0 Hypertensive heart and chronic kidney disease with heart failure and stage 1 through stage 4 chronic kidney disease, or unspecified chronic kidney disease; N17.9 Acute kidney failure, unspecified; I50.22 Chronic systolic (congestive) heart failure; E86.0 Dehydration; E11.65 Type 2 diabetes mellitus with hyperglycemia; G47.33 Obstructive sleep apnea (adult) (pediatric); E11.22 Type 2 diabetes mellitus with diabetic chronic kidney disease; N18.30 Chronic kidney disease, stage 3 unspecified; E66.9 Obesity, unspecified; I48.20 Chronic atrial fibrillation, unspecified; I95.1 Orthostatic hypotension; R39.11 Hesitancy of micturition; R30.0 Dysuria; E78.5 Hyperlipidemia, unspecified; Z79.01 Long term (current) use of anticoagulants; Z87.891 Personal history of nicotine dependence; Z79.4 Long term (current) use of insulin; Z95.0 Presence of cardiac pacemaker; Z20.822 Contact with and (suspected) exposure to COVID-19; Z68.27 Body mass index [BMI] 27.0-27.9, adult
CPT/HCPCS: 0241U; 36415; 51798; 71045; 76770; 80048; 80053; 81001; 82550; 82962; 83036; 83605; 83690; 83735; 83880; 84145; 84484; 85025; 85610; 85730; 87040; 87086; 87633; 87797; 93005; 93010; 93307; 94762; 96361; 96365; 96367; 99284; J0696; J1815; J2020

== ENCOUNTER 2022-10-28 08:48 | Emergency (ER) | payer MEDICARE, OTHER, SELFPAY ==
[2022-10-15 19:47] VITALS: BMI 27.8
[2022-10-28] VITALS (11 sets, daily range): BP systolic 121–158; BP diastolic 58–84; PULSE 69–76; RESP 14–24; TEMP 36.7; O2SAT 94–97; BMI 30.7
--- NOTE | 2022-10-28 08:51 | DI.RAD.S_ITS ---
PROCEDURE: XR CHEST 1V INDICATIONS: chest pain TECHNIQUE: One view of the chest was acquired. COMPARISON: [facility], CR, XR CHEST 1V, 10/15/2022, 14:41. FINDINGS: Surgical changes and devices: Triple lead left cardiac pacer device is in place. Lungs and pleura: Lungs are clear. No pleural effusions or pneumothorax. Mediastinum: Mediastinal contours appear stable. Heart size is enlarged. Bones and chest wall: No suspicious bony lesions. Overlying soft tissues appear unremarkable. IMPRESSION: Stable radiographic evaluation of the chest without acute cardiopulmonary abnormalities or focal airspace disease. Dictated by: Renny Israel M.D. on 10/28/2022 at 9:10 Approved by: Renny Israel M.D. on 10/28/2022 at 9:10
[2022-10-28 09:08] LABS: Add Manual Diff / Slide Review NO; Basophils Absolute Auto 200 /uL (0-100); Basophils Percent Auto 1.6 % (0-2); Eosinophils Absolute Auto 400 /uL (0-450); Eosinophils Percent Auto 3.1 % (2-4); Hematocrit 47.1 % (41-53); Hemoglobin 14.9 g/dL (13.5-17.5); Lymphocytes Absolute Auto 4400 /uL (1100-4500); Lymphocytes Percent Auto 33.3 % (25-40); Mean Corpuscular HGB Conc 31.7 % (30-36); Mean Corpuscular Hemoglobin 30.6 PG (26-34); Mean Corpuscular Volume 96.5 fL (80-100); Monocytes Absolute Auto 1300 /uL (0-900); Monocytes Percent Auto 10.2 % (3-14); Neutrophils Absolute Auto 6800 /uL (1500-7000); Neutrophils Percent Auto 51.8 % (50-75); Platelet Count 217 X10^3/uL (150-400); Red Blood Cell Count 4.88 X10^6/uL (4.5-5.9); Red Cell Distribution Width 14.6 % (11.6-14.8); White Blood Cell Count 13.2 X10^3/uL (4.5-11.0)
[2022-10-28 09:25] LABS: Alanine Aminotransferase 51 IU/L (<50); Albumin 3.8 g/dL (3.5-5.0); Albumin Globulin Ratio 1.1 (1.0-2.8); Alkaline Phosphatase 91 U/L (38-126); Aspartate Aminotransferase 42 IU/L (17-59); BUN Creatinine Ratio 17.8 (6-22); Bilirubin Total 0.7 mg/dL (0.2-1.3); Blood Urea Nitrogen 30 mg/dL (9-20); Carbon Dioxide 31 mmol/L (22-32); Chloride 101 mmol/L (98-107); Creatine Kinase 47 U/L (55-170); Estimated Glomerular Filt Rate 40 mL/min (>60); Globulin 3.5 g/dL (1.7-4.1); Glucose 115 mg/dL (80-110); HEMOLYSIS 16 (0-50); Lipase 94 U/L (23-300); Potassium 4.4 mmol/L (3.4-5.1); Sodium 141 mmol/L (137-145); Total Protein 7.3 g/dL (6.3-8.2)
[2022-10-28 09:38] LABS: Troponin I 0.012 ng/mL (0.01-0.034)
--- NOTE | 2022-10-28 09:40 | ED.CHESTPAIN ---
HPI - Chest Pain General Chief Complaint: Chest Pain Stated Complaint: chest pain, difribillator shock x2 Time Seen by Provider: 10/28/22 08:51 Source: patient and EMS Mode of arrival: EMS Limitations: no limitations History of Present Illness HPI narrative: Patient is a 82-year-old male history of AICD, atrial fibrillation on Eliquis congestive heart failure presents today with defibrillator going off twice. He is had multiple episodes his defibrillator going off over the last few weeks. He has been admitted twice for this. He was recently admitted October 15 through October 21. Initial diagnosis was acute kidney injury however during his stay while in the hospital his defibrillator went off 5 times. He required a lidocaine drip for 48 hours he was finally discharged home on mexiletine 200 mg TID and Toprol-XL 50 mg BID. He is not on amiodarone due to toxicity he was taken off sotalol for other reasons. This morning he was getting breakfast ready when his defibrillator went off twice. He denies any pain. He is not had any fever or chills. He never falls. He said that he was able to sit himself down. His enterprise resource planner is Dr. Duncan, and setter automatic spinning lathe is Dr. Laughlin Related Data Home Medications Medication Instructions Recorded Confirmed coenzyme Q10 100 mg capsule 100 mg PO DAILY ##0 07/15/12 10/15/22 (CoQ-10) rosuvastatin 10 mg tablet (Crestor) 10 mg PO QPM ##0 07/15/12 10/15/22 aspirin 81 mg tablet,delayed 81 mg OR QPM ##0 12/11/17 10/15/22 release apixaban 2.5 mg tablet 2.5 mg PO BID 11/18/18 10/15/22 glucosamine [id number] 1 tab PO BID 11/18/18 10/15/22 robert 1,500 mg-400 unit-100 mg tablet (Osteo Bi-Flex (5-Loxin)) insulin aspart U-100 100 unit/mL 40 - 50 units SUBCUT BID 11/18/18 10/15/22 subcutaneous solution insulin glargine 100 unit/mL 25 units SUBCUT BID 11/18/18 10/15/22 subcutaneous solution finasteride 5 mg tablet 5 mg PO DAILY 09/18/22 10/15/22 tamsulosin 0.4 mg capsule 0.4 mg PO DAILY 09/18/22 10/15/22 Previous Rx's Medication Instructions Recorded metoprolol succinate 50 mg 50 mg PO BID #180 tabs 10/18/22 tablet,extended release 24 hr sacubitril 49 mg-valsartan 51 mg 1 tab PO BID #60 tabs 10/21/22 tablet (Entresto) metoprolol succinate 25 mg 25 mg PO BID #20 tabs 10/28/22 tablet,extended release 24 hr metoprolol succinate 25 mg 25 mg PO BID #20 tabs 10/28/22 tablet,extended release 24 hr metoprolol succinate 50 mg capsule 50 mg PO DAILY #30 ea 10/28/22 sprinkle, ext. release 24 hr metoprolol succinate 50 mg 50 mg PO BID #20 tabs 10/28/22 tablet,extended release 24 hr Allergies Allergy/AdvReac Type Severity Reaction Status Date / Time amiodarone AdvReac Intermediate Verified 10/28/22 08:50 amoxicillin AdvReac Mild DIARRHEA Verified 10/28/22 08:50 naproxen AdvReac Mild DIARRHEA Verified 10/28/22 08:50 Review of Systems Review of Systems Narrative: GENERAL: Denies chills, fatigue, malaise, fever, sweats, travel HEENT: Denies sinus pain, ear pain, sore throat, difficulty swallowing, neck pain RESPIRATORY: Denies dyspnea, cough, wheezing, hemoptysis, sputum. CARDIOVASCULAR: See HPI GASTROINTESTINAL: Denies nausea, vomiting, abdominal pain, diarrhea, constipation, melena. : Denies dysuria, frequency, incontinence, hematuria, urinary retention, flank pain. MUSCULOSKELETAL: Denies weakness, joint pain, or bony pain SKIN: No rash, no erythema, no pruritus NEUROLOGIC: Denies weakness, dizziness, headache, numbness, change in speech, confusion PSYCHIATRIC: No concerning psychosocial issues. 12 point review of systems is negative except for those stated above and HPI Patient History Medical History (Updated 10/28/22 @ 12:24 by Amparo Milan DO) Atrial fibrillation Hyperlipidemia Hypertension Ischemic cardiomyopathy Myocardial infarction Obesity Obstructive sleep apnea of adult Primary insomnia Snoring Type 2 diabetes mellitus Surgical History History of cholecystectomy History of ERCP History of hernia repair History of left knee replacement History of partial knee replacement History of resection of 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 Mother Leukemia Social History household members: spouse Smoking Status: Former smoker alcohol intake: former Smoking Status: Former smoker alcohol intake frequency: holidays/special occasions only Substance Use Type: does not use Exam Initial Vital Signs Initial Vital Signs: Vital Signs Temperature 98.0 F 10/28/22 08:51 Pulse Rate 76 10/28/22 08:51 Respiratory Rate 24 10/28/22 08:51 Blood Pressure 154/75 H 10/28/22 08:51 Pulse Oximetry 96 10/28/22 08:51 Oxygen Delivery Method 10/28/22 08:51 GENERAL: Alert pleasant 82-year-old male and in no acute distress. HEENT: Head atraumatic,EOMI, pupils reactive, face symmetric, moist mucous membranes CARDIOVASCULAR: Regular rate and rhythm without murmurs, rubs or gallops. RESPIRATORY: Breath sounds equal bilaterally, no wheezes rales or rhonchi. ABDOMEN: Soft, nontender. Normoactive bowel sounds all 4 quadrants. No guarding or rebound. EXTREMITIES: Normal range of motion, no clubbing or edema. Neurovascularly intact NEUROLOGICAL: Alert and oriented x4.Normal gait and speech. SKIN: Warm, dry, no laceration, no petechiae, no rashes or lesions. Course Orders Ordered: Discontinued Medications Metoprolol Succinate (Metoprolol Er 50 Mg Tablet) 75 mg PO NOW ONE Stop: 10/28/22 10:37 Last Admin: 10/28/22 11:06 Dose: 75 mg Documented By: CINDY Mexiletine HCl (Mexiletine Hcl 150 Mg Capsule) 200 mg PO NOW ONE Stop: 10/28/22 10:40 Last Admin: 10/28/22 11:06 Dose: 200 mg Documented By: CINDY Vital Signs Vital signs: Vital Signs - 8 hr 10/28/22 11:06 10/28/22 11:00 10/28/22 11:00 Pulse Rate 71 70 Respiratory Rate 20 Blood Pressure 140/68 140/68 Pulse Oximetry 97 Oxygen Delivery Method Room Air 10/28/22 11:30 10/28/22 11:30 10/28/22 12:00 Pulse Rate 71 Respiratory Rate 16 Blood Pressure 121/58 L 128/60 Pulse Oximetry Oxygen Delivery Method Room Air 10/28/22 12:00 10/28/22 12:30 10/28/22 12:30 Pulse Rate 73 69 Respiratory Rate 18 Blood Pressure 147/72 H Pulse Oximetry Oxygen Delivery Method MDM - Chest Pain Lab Data Result diagrams: 10/28/22 08:59 10/28/22 08:59 Labs: Lab Results 10/28/22 10/28/22 10/28/22 Range/Units 08:59 08:59 08:59 WBC 13.2 H (4.5-11.0) X10^3/uL RBC 4.88 (4.5-5.9) X10^6/uL Hgb 14.9 (13.5-17.5) g/dL Hct 47.1 (41-53) % MCV 96.5 (80-100) fL MCH 30.6 (26-34) PG MCHC 31.7 (30-36) % RDW 14.6 (11.6-14.8) % Plt Count 217 (150-400) X10^3/uL Neut % (Auto) 51.8 (50-75) % Lymph % (Auto) 33.3 (25-40) % [place] % (Auto) 10.2 (3-14) % Eos % (Auto) 3.1 (2-4) % Baso % (Auto) 1.6 (0-2) % Neut # (Auto) 6800 (4798-3169) /uL Lymph # (Auto) 4400 (7210-9786) /uL [place] # (Auto) 1300 H (0-900) /uL Eos # (Auto) 400 (0-450) /uL Baso # (Auto) 200 H (0-100) /uL Sodium 141 (137-145) mmol/L Potassium 4.4 (3.4-5.1) mmol/L Chloride 101 (98-107) mmol/L Carbon Dioxide 31 (22-32) mmol/L BUN 30 H (9-20) mg/dL Creatinine 1.69 H (0.66-1.25) mg/dL Estimated GFR 40 L (>60) mL/min BUN/Creatinine Ratio 17.8 (6-22) Glucose 115 H (80-110) mg/dL Calcium 9.0 (8.4-10.2) mg/dL Total Bilirubin 0.7 (0.2-1.3) mg/dL AST 42 (17-59) IU/L ALT 51 H (<50) IU/L Alkaline Phosphatase 91 (38-126) U/L Total Creatine Kinase 47 L (55-170) U/L CK-MB (CK-2) TNP CK-MB (CK-2) Rel Index TNP Troponin I 0.012 (0.01-0.034) ng/mL NT-Pro-B Natriuret Pep 1830 H (<450) pg/mL Total Protein 7.3 (6.3-8.2) g/dL Albumin 3.8 (3.5-5.0) g/dL Globulin 3.5 (1.7-4.1) g/dL Albumin/Globulin Ratio 1.1 (1.0-2.8) Lipase 94 (23-300) U/L Imaging Data Chest x-ray: Radiologist's Impression: nt: Raul Ray MR#: [id number] : 1940 Acct:[id number] Age/Sex: 82 / M Date of Service: 10/28/22 Loc: Accession Number: [id number] ?? Procedure: XR chest 1V Ordering Provider: Amparo Milan D.O. PROCEDURE:? XR CHEST 1V ? INDICATIONS:? chest pain ? TECHNIQUE:? One view of the chest was acquired.? ? COMPARISON:? [facility], , XR CHEST 1V, 10/15/2022, 14:41. ? FINDINGS:? ? Surgical changes and devices:? Triple lead left cardiac pacer device is in place. ? Lungs and pleura:? Lungs are clear.? No pleural effusions or pneumothorax.? ? Mediastinum:? Mediastinal contours appear stable.? Heart size is enlarged.? ? Bones and chest wall:? No suspicious bony lesions.? Overlying soft tissues appear unremarkable.? ? IMPRESSION:? Stable radiographic evaluation of the chest without acute cardiopulmonary abnormalities or focal airspace disease. ? Dictated by: Renny Israel M.D. on 10/28/2022 at 9:10 ? ECG Data Interpretation: Paced rhythm rate 71 OH interval 142 QRS 162 QTC 497 similar to previous EKG without ST changes MDM Narrative Medical decision making narrative: Patient is an 82-year-old male with an AICD presenting today for to defibrillator shocks. Pacemaker has been interrogated appears to be SVT tried to get it self out and then activated it. Dr. Laughlin electrophysiology has been contacted. Patient has had multiple shocks over last couple of weeks he has been on multiple medications and medication adjustments. Blood work today is overall reassuring. He previously had evidence of acute kidney injury today his creatinine is 1.69 previously was 2.11. Electrolytes are within normal limits. No sign of infection. 1022 Dr. Laughlin, recommended increasing metoprolol to 75 mg twice a day. He is made arrangements to see patient in the office at 10:00 a.m. tomorrow Daughter now at bedside as updated on patient's plan. Agrees with taking patient to [place] tomorrow so that he can be evaluated by Cardiology in person. Patient has had multiple events over the last couple of weeks. Differential diagnosis includes V-tach, VFib, SVT, acute coronary syndrome, congestive heart failure Discharge Plan Departure Patient Disposition: Home Clinical Impression: Defibrillator discharge Instructions: DI for Atypical Chest Pain Activity Restrictions/Additional Instructions: I am sorry that this keeps happening to you Dr. Laughlin will see you in the office tomorrow at 10:00 a.m. --you did receive Mexiletine 200mg and metoprolol 75mg in the ER Continue Mexiletine 200mg 3 times a day Metoprolol increased to 75 mg twice daily Return if you should have any further problem Prescriptions: New metoprolol succinate 50 mg capsule,sprinkle,ER 24hr 50 mg PO DAILY Qty: 30 0RF metoprolol succinate 25 mg tablet extended release 24 hr 25 mg PO BID Qty: 20 0RF metoprolol succinate 25 mg tablet extended release 24 hr 25 mg PO BID Qty: 20 0RF metoprolol succinate 50 mg tablet extended release 24 hr 50 mg PO BID Qty: 20 0RF No Action rosuvastatin [Crestor] 10 MG tablet 10 mg PO QPM Qty: 0 coenzyme Q10 [CoQ-10] 100 mg Capsule 100 mg PO DAILY Qty: 0 aspirin 81 MG tablet,delayed release (DR/EC) 81 mg OR QPM Qty: 0 insulin glargine 100 unit/mL solution 25 units subcut BID insulin aspart U-100 100 unit/mL solution 40 - 50 units subcut BID Label Comments: before meals [id number] serr [Osteo Bi-Flex (5-Loxin)] 1,500-400-100 mg-unit-mg Tablet 1 tab PO BID Label Comments: with a meal apixaban 2.5 mg tablet 2.5 mg PO BID finasteride 5 mg tablet 5 mg PO DAILY tamsulosin 0.4 mg capsule 0.4 mg PO DAILY metoprolol succinate 50 mg Tablet Extended Release 24 Hr 50 mg PO BID Qty: 180 0RF Entresto 49-51 mg tablet 1 tab PO BID Qty: 60 0RF Referrals: Klever Gresham MD [Primary Care Provider] - Benny Laughlin MD [Physician] - Visit Report Forms: Patient Portal/API
[2022-10-28 09:41] LABS: NT-proBNP (BNP-Adult 18+) 1830 pg/mL (<450)
--- NOTE | 2022-10-28 10:11 | PC.NURSE ---
pacemaker interrogation done
[2022-10-28] MEDS: MEXILETINE HCL 150 MG CAPSULE 200 MG PO (11:06)
[2022-10-28] MEDS: METOPROLOL ER 50 MG TABLET 75 MG PO (11:06)
== END 2022-10-28 12:49 | disposition home or self-care (01) ==
PROVIDERS: Emergency Provider Emergency Medicine; Family Provider Internal Medicine; PCP Internal Medicine
DX: T82.897A Other specified complication of cardiac prosthetic devices, implants and grafts, initial encounter (principal)
CPT/HCPCS: 36415; 71045; 80053; 82550; 83690; 83880; 84484; 85025; 93005; 99284; A9270

== ENCOUNTER → 2022-11-18 14:43 | Outpatient (CLI) | payer MEDICARE, OTHER, SELFPAY ==
[2022-10-15 19:47] VITALS: BMI 27.8
[2022-11-18 18:59] LABS: BUN Creatinine Ratio 15.8 (6-22); Blood Urea Nitrogen 39 mg/dL (9-20); Calcium 9.3 mg/dL (8.4-10.2); Carbon Dioxide 32 mmol/L (22-32); Chloride 90 mmol/L (98-107); Estimated Glomerular Filt Rate 25 mL/min (>60); Glucose 270 mg/dL (80-110); HEMOLYSIS 45 (0-50); Sodium 138 mmol/L (137-145)
== END ==
PROVIDERS: Family Provider Internal Medicine; PCP Internal Medicine; Referring Provider Internal Medicine Cardiovascular Disease; Visit Provider Internal Medicine Cardiovascular Disease
DX: I25.10 Atherosclerotic heart disease of native coronary artery without angina pectoris (principal)
CPT/HCPCS: 36415; 80048

== ENCOUNTER 2022-11-23 10:23 | Emergency (ER) | payer MEDICARE, OTHER, SELFPAY ==
[2022-10-15 19:47] VITALS: BMI 27.8
[2022-11-23] VITALS (69 sets, daily range): BP systolic 76–124; BP diastolic 49–88; PULSE 69–80; RESP 12–28; TEMP 35.8–37.6; O2SAT 87–99; BMI 30.1
--- NOTE | 2022-11-23 10:32 | DI.CT.S_ITS ---
PROCEDURE: CT CERVICAL SPINE WO CON INDICATIONS: syncope, found down TECHNIQUE: Noncontrast 3 mm thick sections acquired from the skull base to the T4 level. Sagittal and coronal reformats were then constructed. For radiation dose reduction, the following was used: automated exposure control, adjustment of mA and/or kV according to patient size. COMPARISON: None. FINDINGS: Image quality: Excellent. Bones: No fractures or dislocations. Degenerative endplate changes, loss of disc height and prominent anterior disc osteophyte complex formation are noted at C3-4 through C5-6 levels. Dorsal disc osteophyte complex formation at C5-6 and C6-7 levels are also seen causing mild central canal stenosis. Visualized superior ribs are intact. Soft tissues: Prevertebral soft tissues are normal in thickness. No paravertebral hematomas. No apical pneumothoraces. Left chest wall pacemaker is noted. IMPRESSION: 1. No acute cervical spine fracture or or dislocation. 2. Degenerative disc disease throughout cervical spine as above. Dictated by: Lucius Gann M.D. on 11/23/2022 at 11:51 Approved by: Lucius Gann M.D. on 11/23/2022 at 11:53
--- NOTE | 2022-11-23 10:32 | DI.RAD.S_ITS ---
PROCEDURE: XR CHEST 1V INDICATIONS: AICD, syncope, found down TECHNIQUE: One view of the chest was acquired. COMPARISON: [facility], , XR CHEST 1V, 10/28/2022, 9:00. FINDINGS: Surgical changes and devices: Left chest wall pacemaker leads are in the region of right atrium, right ventricle and left ventricle. Lungs and pleura: Lungs are clear. No pleural effusions or pneumothorax. Mediastinum: Mediastinal contours appear normal. Heart size is enlarged. Bones and chest wall: No suspicious bony lesions. Overlying soft tissues appear unremarkable. IMPRESSION: No acute cardiopulmonary pathology. Dictated by: Lucius Gann M.D. on 11/23/2022 at 11:36 Approved by: Lucius Gann M.D. on 11/23/2022 at 11:37
--- NOTE | 2022-11-23 10:33 | DI.CT.S_ITS ---
PROCEDURE: CT HEAD/BRAIN WO CON INDICATIONS: head injury, on eliquis TECHNIQUE: Noncontrast 4.5 mm thick angled axial sections acquired from the foramen magnum to the vertex, with coronal and sagittal reformats. For radiation dose reduction, the following was used: automated exposure control, adjustment of mA and/or kV according to patient size. COMPARISON: None. FINDINGS: Image quality: Excellent. CSF spaces: Basal cisterns are patent. No extra-axial fluid collections. The ventricles are symmetric in size and shape. Brain: No intracranial bleeds or masses. There is cerebral volume loss for age, with resultant ventricular and sulcal prominence. There are periventricular and deep white matter chronic small vessel ischemic changes. There is intracranial internal carotid artery atherosclerosis. Skull and face: Calvarium and visualized facial bones appear intact, without suspicious lesions. Sinuses: Visualized sinuses and mastoids are clear. IMPRESSION: 1. No CT evidence of acute intracranial abnormalities. 2. No acute skull fracture. 3. Age related volume loss and mild white matter chronic small vessel ischemic changes. Dictated by: Lucius Gann M.D. on 11/23/2022 at 11:54 Approved by: Lucius Gann M.D. on 11/23/2022 at 11:54
[2022-11-23 11:56] LABS: Add Manual Diff / Slide Review NO; Basophils Absolute Auto 0 /uL (0-100); Basophils Percent Auto 0.3 % (0-2); Eosinophils Absolute Auto 100 /uL (0-450); Eosinophils Percent Auto 0.7 % (2-4); Hematocrit 52.8 % (41-53); Hemoglobin 17.3 g/dL (13.5-17.5); Lymphocytes Absolute Auto 2000 /uL (1100-4500); Lymphocytes Percent Auto 14.2 % (25-40); Mean Corpuscular HGB Conc 32.8 % (30-36); Mean Corpuscular Volume 94.6 fL (80-100); Monocytes Absolute Auto 1300 /uL (0-900); Monocytes Percent Auto 9.4 % (3-14); Neutrophils Absolute Auto 10400 /uL (1500-7000); Neutrophils Percent Auto 75.4 % (50-75); Platelet Count 183 X10^3/uL (150-400); Red Blood Cell Count 5.58 X10^6/uL (4.5-5.9); Red Cell Distribution Width 14.6 % (11.6-14.8); White Blood Cell Count 13.8 X10^3/uL (4.5-11.0)
--- NOTE | 2022-11-23 11:59 | ED_ITS ---
HPI - General Adult General Chief complaint: Syncope Stated complaint: AID went off Time Seen by Provider: 11/23/22 10:29 Source: patient and EMS Mode of arrival: EMS History of Present Illness HPI narrative: 82-year-old male former smoker with extensive medical history including AFib on half dose Eliquis, pacer and AICD, hypertension, hyperlipidemia, CHF with EF 35- 40%presents by EMS for evaluation of syncopal episode, probable AICD discharge. He states that he was in his normal state of health and denies any fever, chills nor nausea or vomiting. He was not feeling dizzy, weak or lightheaded. He states that he was walking and then remembers nothing until waking up on the floor, his found him and activated EMS. He states he is unclear if his AICD went off but he thinks it probably did. He does not know if it went off b efore or after he fell. He denies any change in his medications and against states he had not been ill. He does not know if he injured his head but is on Eliquis and is activated as a modified trauma as result. He arrives in C-collar Related Data Home Medications Medication Instructions Recorded Confirmed coenzyme Q10 100 mg capsule 100 mg PO DAILY ##0 07/15/12 10/15/22 (CoQ-10) rosuvastatin 10 mg tablet (Crestor) 10 mg PO QPM ##0 07/15/12 10/15/22 aspirin 81 mg tablet,delayed 81 mg OR QPM ##0 12/11/17 10/15/22 release apixaban 2.5 mg tablet 2.5 mg PO BID 11/18/18 10/15/22 glucosamine ABh-O2-Alfsibrxt 1 tab PO BID 11/18/18 10/15/22 robert 1,500 mg-400 unit-100 mg tablet (Osteo Bi-Flex (5-Loxin)) insulin aspart U-100 100 unit/mL 40 - 50 units SUBCUT BID 11/18/18 10/15/22 subcutaneous solution insulin glargine 100 unit/mL 25 units SUBCUT BID 11/18/18 10/15/22 subcutaneous solution finasteride 5 mg tablet 5 mg PO DAILY 09/18/22 10/15/22 tamsulosin 0.4 mg capsule 0.4 mg PO DAILY 09/18/22 10/15/22 Previous Rx's Medication Instructions Recorded metoprolol succinate 50 mg 50 mg PO BID #180 tabs 10/18/22 tablet,extended release 24 hr sacubitril 49 mg-valsartan 51 mg 1 tab PO BID #60 tabs 10/21/22 tablet (Entresto) metoprolol succinate 25 mg 25 mg PO BID #20 tabs 10/28/22 tablet,extended release 24 hr metoprolol succinate 25 mg 25 mg PO BID #20 tabs 10/28/22 tablet,extended release 24 hr metoprolol succinate 50 mg capsule 50 mg PO DAILY #30 ea 10/28/22 sprinkle, ext. release 24 hr metoprolol succinate 50 mg 50 mg PO BID #20 tabs 10/28/22 tablet,extended release 24 hr Allergies Allergy/AdvReac Type Severity Reaction Status Date / Time amiodarone AdvReac Intermediate Verified 11/23/22 10:39 amoxicillin AdvReac Mild DIARRHEA Verified 11/23/22 10:39 naproxen AdvReac Mild DIARRHEA Verified 11/23/22 10:39 Review of Systems Review of Systems Narrative: GENERAL: Denies chills, fatigue, malaise, fever, sweats. HEENT: Denies sinus pain, ear pain, sore throat, difficulty swallowing, dizziness. RESPIRATORY: Denies dyspnea, cough, wheezing, hemoptysis, sputum. CARDIOVASCULAR: See HPI GASTROINTESTINAL: Denies nausea, vomiting, abdominal pain, diarrhea, constipation, melena. : Denies dysuria, frequency, incontinence, hematuria, urinary retention. MUSCULOSKELETAL: denies weakness, joint pain, or bony pain SKIN: Denies rash, skin lesions, or other NEUROLOGIC: Denies weakness, headache, numbness, change in speech, confusion, seizures, incoordination. PSYCHIATRIC: No concerning psychosocial issues. 12 point review of systems is negative except for those stated above Patient History Medical History (Updated 11/23/22 @ 17:34 by To Kang DO) Atrial fibrillation Hyperlipidemia Hypertension Ischemic cardiomyopathy Myocardial infarction Obesity Obstructive sleep apnea of adult Primary insomnia Snoring Type 2 diabetes mellitus Surgical History History of cholecystectomy History of ERCP History of hernia repair History of left knee replacement History of partial knee replacement History of resection of 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 Mother Leukemia Social History household members: spouse Smoking Status: Former smoker alcohol intake: former Smoking Status: Former smoker alcohol intake frequency: holidays/special occasions only Substance Use Type: does not use Exam Narrative Exam Narrative: GENERAL: [82] year old patient appears stated age. Well-developed patient, in mild distress. GCS 15 HEAD: Atraumatic. Normocephalic. EYES: Pupils equal round and reactive. Extraocular motions intact. No scleral icterus. No injection or drainage. ENT: Nose without bleeding, purulent drainage. Throat without erythema, tonsillar hypertrophy or exudate. Airway patent. NECK: Trachea midline. Non tender, C-collar in place, placed by EMS CARDIOVASCULAR: Regular rate and rhythm without murmurs, gallops, or rubs. RESPIRATORY: Clear to auscultation. Breath sounds equal bilaterally. No wheezes, rales, or rhonchi. GASTROINTESTINAL: Abdomen soft, non-tender, nondistended. EXTREMITIES: No edema or joint tenderness. BACK: Nontender without deformity or crepitance. No flank tenderness. NEURO: AOx3. SKIN: No rash or erythema of visible areas Initial Vital Signs Initial Vital Signs: Vital Signs Pulse Rate 72 11/23/22 10:32 Respiratory Rate 26 H 11/23/22 10:32 Pulse Oximetry 87 L 11/23/22 10:32 Oxygen Delivery Method 11/23/22 10:32 Procedures Central Line Placement Right IJ: Time Out Performed: Yes Patient Placed on Monitor/Pulse Ox: Yes MD Prep: mask, gown and gloves Central Line Prep: Chlorhexidine scrub and sterile drapes applied Local Anesthetic: lidocaine 2% Amount of anesthesia used (mL): 4 Ultrasound Used for Placement: Yes Central Line Lumen Inserted: triple Post Procedure: good blood return, all ports aspirated, flushed, capped and sterile dressing applied Post Procedure X-Ray: tip of catheter in good position Patient Tolerated Procedure: Well Complications: none Course Orders Ordered: ED Orders 11/23/22 10:32 CT cervical spine wo con Stat Chest [XR chest 1V] Stat 11/23/22 10:33 CT head/brain wo con Stat 11/23/22 10:36 Blood Culture Stat Procalcitonin Stat EKG-12 Lead Stat 11/23/22 11:30 Basic Metabolic Panel Stat Complete Blood Count AUTO DIFF Stat Lactate (Lactic Acid) Stat Lipase Stat Magnesium Stat NT-proBNP (BNP-Adult 18+) Stat Troponin & CK Cardiac Panel Stat 11/23/22 11:35 Covid-19 + FLU A/B + RSV - PCR Stat 11/23/22 11:50 Prothrombin Time INR Stat 11/23/22 12:52 Urinalysis and Microscopic Stat 11/23/22 13:12 ABG [Arterial Blood Gas] Stat 11/23/22 14:47 EC echo doppler complete Stat 11/23/22 16:10 XR chest 1V Stat 11/23/22 16:41 VBG [Venous Blood Gas] Stat NOREPINEPHRINE BITARTRATE/D5W (Levophed) 4 mg in 250 mls @ 30 mls/hr IV TITRATE STEPHANI; Protocol Last Admin: 11/23/22 15:07 Dose: 8 mcg/min, 30 mls/hr Documented By: BESS Discontinued Medications Sodium Chloride (Normal Saline 0.9%) 2,190 mls @ 730 mls/hr 30 ml/kg infuse over 3 hr (2190 ml) IV NOW ONE Stop: 11/23/22 15:24 Last Infusion: 11/23/22 15:50 Dose: 0 mls/hr Documented By: Admin: 11/23/22 12:56 Dose: 730 mls/hr Documented By: LINO Ceftriaxone Sodium 2,000 mg/ (Sodium Chloride) 100 mls @ 200 mls/hr IV NOW ONE Stop: 11/23/22 12:26 Last Admin: 11/23/22 12:46 Dose: Not Given Documented By: LINO Azithromycin 500 mg/ Dextrose 250 mls @ 250 mls/hr IV NOW ONE Stop: 11/23/22 12:26 Last Infusion: 11/23/22 14:48 Dose: 0 mls/hr Documented By: Admin: 11/23/22 13:03 Dose: 250 mls/hr Documented By: LINO Piperacillin Sod/Tazobactam (Sod 4.5 gm/ Sodium Chloride) 100 mls @ 200 mls/hr IV NOW ONE Stop: 11/23/22 12:30 Last Infusion: 11/23/22 13:02 Dose: 0 mls/hr Documented By: Admin: 11/23/22 12:56 Dose: 200 mls/hr Documented By: LINO Lidocaine HCl (Lidocaine 2% (Glydo) 6 Ml Gel) 6 ml TOP NOW ONE Stop: 11/23/22 12:38 Last Admin: 11/23/22 12:56 Dose: 6 ml Documented By: LINO Reevaluation(s) Reevaluation #1: patient does well on 2-4L, but decompensates rather quickly when off O2, ABG ordered and notes PO2 on RA of 75 Reevaluation #2: patient BP slowly dipping, but no episodes of MAP < 65 Reevaluation #3: 1515 - 76/50, Levo ordered, plan for central line Consultations Consultation #1: 1200 - discussed with Dr. Riley (Hospitalist), recommends transfer given complexity of case and need for inpatient cardio. discussed with cardiology for second time, checking chart. VT ablation at in 2021. On Mexletine 200mg TID, metop 75 BID, Eliquis 2.5 BID. Entresto TID. AV brendan ablation upcoming, another inappropriate shock. Strongly recommends /[facility] [place] Time: 13:47 Consultation #2: 2350 - call to . Discussed with telecommunications professional cardiology. After discussion of case she recommends transfer and accepts on her service. Suggests likely combo of cardiogenic vs. distributive shock. Requests VBG once TLC placed. Consultation #3: MAP holding steady on Levo at 8. VBG notes PO2 43, Dr. Alvarenga ( Cardio) suggests holding off on Dobutamine until patient arrival Vital Signs Vital signs: Vital Signs - 8 hr 11/23/22 10:39 11/23/22 10:32 11/23/22 10:41 Temperature 96.7 F L Pulse Rate 70 72 Respiratory Rate 20 26 H Blood Pressure 124/88 111/73 Pulse Oximetry 92 87 L Oxygen Delivery Method Room Air Room Air Oxygen Flow Rate 11/23/22 10:41 11/23/22 11:08 11/23/22 11:30 Temperature Pulse Rate 69 69 69 Respiratory Rate 16 14 Blood Pressure Pulse Oximetry 91 97 Oxygen Delivery Method Nasal Cannula Nasal Cannula Oxygen Flow Rate 2 4 11/23/22 11:43 11/23/22 11:43 11/23/22 11:49 Temperature Pulse Rate 69 69 Respiratory Rate 18 17 Blood Pressure 96/57 L Pulse Oximetry 97 95 Oxygen Delivery Method Oxygen Flow Rate 11/23/22 11:49 11/23/22 11:50 11/23/22 11:50 Temperature Pulse Rate 69 Respiratory Rate 15 Blood Pressure 96/56 L 99/55 L Pulse Oximetry 95 Oxygen Delivery Method Oxygen Flow Rate 11/23/22 12:00 11/23/22 12:00 11/23/22 12:10 Temperature Pulse Rate 69 Respiratory Rate 16 Blood Pressure 94/55 L 99/59 L Pulse Oximetry 95 Oxygen Delivery Method Oxygen Flow Rate 11/23/22 12:10 11/23/22 12:20 11/23/22 12:20 Temperature Pulse Rate 69 69 Respiratory Rate 24 13 Blood Pressure 88/54 L Pulse Oximetry 97 98 Oxygen Delivery Method Nasal Cannula Oxygen Flow Rate 4 11/23/22 12:27 11/23/22 12:27 11/23/22 12:30 Temperature Pulse Rate 69 Respiratory Rate 12 Blood Pressure 107/63 105/65 Pulse Oximetry 97 Oxygen Delivery Method Oxygen Flow Rate 11/23/22 12:30 11/23/22 12:40 11/23/22 12:40 Temperature Pulse Rate 69 69 Respiratory Rate 14 13 Blood Pressure 105/63 Pulse Oximetry 97 96 Oxygen Delivery Method Nasal Cannula Oxygen Flow Rate 4 11/23/22 12:50 11/23/22 12:50 11/23/22 13:00 Temperature Pulse Rate 69 Respiratory Rate 13 Blood Pressure 122/64 100/56 L Pulse Oximetry 95 Oxygen Delivery Method Oxygen Flow Rate 11/23/22 13:00 11/23/22 13:30 11/23/22 14:00 Temperature 96.4 F L 97.0 F L 97.0 F L Pulse Rate 69 69 69 Respiratory Rate 16 18 16 Blood Pressure Pulse Oximetry 96 88 L 95 Oxygen Delivery Method Room Air Nasal Cannula Oxygen Flow Rate 4 11/23/22 14:05 11/23/22 14:10 11/23/22 14:13 Temperature 97.2 F L 97.2 F L Pulse Rate 69 70 Respiratory Rate 18 16 Blood Pressure 77/50 L Pulse Oximetry 95 97 Oxygen Delivery Method Oxygen Flow Rate 11/23/22 14:13 11/23/22 14:14 11/23/22 14:14 Temperature 97.2 F L 97.2 F L Pulse Rate 69 69 Respiratory Rate 17 21 Blood Pressure 79/52 L Pulse Oximetry 99 99 Oxygen Delivery Method Oxygen Flow Rate 11/23/22 14:15 11/23/22 14:15 11/23/22 14:17 Temperature 97.2 F L 97.2 F L Pulse Rate 69 69 Respiratory Rate 23 20 Blood Pressure 83/54 L Pulse Oximetry 98 99 Oxygen Delivery Method Nasal Cannula Oxygen Flow Rate 4 11/23/22 14:18 11/23/22 14:18 11/23/22 14:20 Temperature 97.2 F L Pulse Rate 69 Respiratory Rate 21 Blood Pressure 88/53 L 91/55 L Pulse Oximetry 98 Oxygen Delivery Method Oxygen Flow Rate 11/23/22 14:20 11/23/22 14:25 11/23/22 14:30 Temperature 97.2 F L 97.2 F L 97.2 F L Pulse Rate 69 69 70 Respiratory Rate 14 17 18 Blood Pressure Pulse Oximetry 99 98 98 Oxygen Delivery Method Oxygen Flow Rate 11/23/22 14:35 11/23/22 14:40 11/23/22 14:44 Temperature 97.2 F L 97.2 F L Pulse Rate 69 69 Respiratory Rate 16 15 Blood Pressure 91/55 L Pulse Oximetry 98 98 Oxygen Delivery Method Oxygen Flow Rate 11/23/22 14:44 11/23/22 14:45 11/23/22 14:50 Temperature 97.2 F L 97.2 F L Pulse Rate 69 69 Respiratory Rate 17 14 Blood Pressure 83/51 L Pulse Oximetry 97 97 Oxygen Delivery Method Oxygen Flow Rate 11/23/22 14:50 11/23/22 14:55 11/23/22 14:57 Temperature 97.2 F L 97.2 F L Pulse Rate 69 69 Respiratory Rate 16 17 Blood Pressure 79/51 L Pulse Oximetry 97 96 Oxygen Delivery Method Oxygen Flow Rate 11/23/22 14:57 11/23/22 15:00 11/23/22 15:00 Temperature 97.2 F L 97.2 F L Pulse Rate 69 69 Respiratory Rate 17 16 Blood Pressure 76/49 L Pulse Oximetry 97 97 Oxygen Delivery Method Oxygen Flow Rate 11/23/22 15:05 11/23/22 15:10 11/23/22 15:12 Temperature 97.2 F L 97.2 F L 97.2 F L Pulse Rate 75 69 69 Respiratory Rate 19 20 18 Blood Pressure Pulse Oximetry 97 99 99 Oxygen Delivery Method Room Air Oxygen Flow Rate 4 11/23/22 15:12 11/23/22 15:15 11/23/22 15:20 Temperature 97.3 F L 97.3 F L Pulse Rate 69 69 Respiratory Rate 22 22 Blood Pressure 106/63 Pulse Oximetry 99 98 Oxygen Delivery Method Oxygen Flow Rate 11/23/22 15:21 11/23/22 15:21 11/23/22 15:25 Temperature 97.3 F L 97.3 F L Pulse Rate 69 69 Respiratory Rate 21 15 Blood Pressure 104/59 L Pulse Oximetry 98 98 Oxygen Delivery Method Oxygen Flow Rate 11/23/22 15:30 11/23/22 15:30 11/23/22 15:35 Temperature 97.3 F L 97.5 F L Pulse Rate 70 70 Respiratory Rate 14 15 Blood Pressure 113/62 Pulse Oximetry 97 97 Oxygen Delivery Method Oxygen Flow Rate 11/23/22 15:40 11/23/22 15:45 11/23/22 15:50 Temperature 97.5 F L 97.7 F 97.9 F Pulse Rate 72 74 Respiratory Rate 18 24 Blood Pressure Pulse Oximetry 94 94 Oxygen Delivery Method Oxygen Flow Rate 11/23/22 15:55 11/23/22 16:00 11/23/22 16:05 Temperature 97.9 F 98.1 F 98.2 F Pulse Rate 74 76 75 Respiratory Rate 22 20 25 H Blood Pressure Pulse Oximetry 95 93 93 Oxygen Delivery Method Oxygen Flow Rate 11/23/22 16:10 11/23/22 16:15 11/23/22 16:30 Temperature 98.2 F 98.4 F 99.0 F Pulse Rate 74 74 73 Respiratory Rate 17 16 17 Blood Pressure Pulse Oximetry 95 96 99 Oxygen Delivery Method Oxygen Flow Rate 11/23/22 16:31 11/23/22 16:31 11/23/22 16:45 Temperature 99.0 F Pulse Rate 73 Respiratory Rate 15 Blood Pressure 113/64 111/64 Pulse Oximetry 99 Oxygen Delivery Method Oxygen Flow Rate 11/23/22 16:45 11/23/22 17:00 11/23/22 17:00 Temperature 99.0 F 99.1 F Pulse Rate 74 74 Respiratory Rate 16 18 Blood Pressure 109/64 Pulse Oximetry 98 99 Oxygen Delivery Method Oxygen Flow Rate Medical Decision Making Lab Data Result diagrams: 11/23/22 11:30 11/23/22 11:30 Labs: Lab Results 11/23/22 11/23/22 11/23/22 Range/Units 10:36 11:30 11:30 WBC 13.8 H (4.5-11.0) X10^3/uL RBC 5.58 (4.5-5.9) X10^6/uL Hgb 17.3 (13.5-17.5) g/dL Hct 52.8 (41-53) % MCV 94.6 (80-100) fL MCH 31.0 (26-34) PG MCHC 32.8 (30-36) % RDW 14.6 (11.6-14.8) % Plt Count 183 (150-400) X10^3/uL Neut % (Auto) 75.4 H (50-75) % Lymph % (Auto) 14.2 L (25-40) % [place] % (Auto) 9.4 (3-14) % Eos % (Auto) 0.7 L (2-4) % Baso % (Auto) 0.3 (0-2) % Neut # (Auto) 83443 H (6220-7170) /uL Lymph # (Auto) 2000 (5740-6478) /uL [place] # (Auto) 1300 H (0-900) /uL Eos # (Auto) 100 (0-450) /uL Baso # (Auto) 0 (0-100) /uL PT (10.1-12.7) SECONDS INR (0.9-1.3) ABG pH (7.35-7.45) ABG pCO2 (35-45) mmHg ABG pO2 (80-100) mmHg ABG HCO3 (22-26) mmol/L ABG Total CO2 (21-31) mmol/L ABG O2 Saturation (95-100) % ABG Base Excess (-2-2) mmol/L VBG pH (7.33-7.43) VBG pCO2 (45-50) mmHg VBG pO2 (35-45) mmHg VBG HCO3 (23-28) mmol/L VBG Total CO2 (24-29) mmol/L VBG O2 Saturation (70-75) % VBG Base Excess (0-4) mmol/L FiO2 Sodium 140 (137-145) mmol/L Potassium 4.8 (3.4-5.1) mmol/L Chloride 103 (98-107) mmol/L Carbon Dioxide 28 (22-32) mmol/L BUN 49 H (9-20) mg/dL Creatinine 2.54 H (0.66-1.25) mg/dL Estimated GFR 24 L (>60) mL/min BUN/Creatinine Ratio 19.3 (6-22) Glucose 108 D (80-110) mg/dL Lactate (0.7-2.1) mmol/L Calcium 9.2 (8.4-10.2) mg/dL Magnesium 2.7 H (1.6-2.3) mg/dL Total Creatine Kinase 41 L (55-170) U/L CK-MB (CK-2) TNP CK-MB (CK-2) Rel Index TNP Troponin I 0.019 (0.01-0.034) ng/mL NT-Pro-B Natriuret Pep 933 H (<450) pg/mL Lipase 30 (23-300) U/L Procalcitonin 0.18 (<0.5) ng/mL Urine Color Urine Appearance Urine pH (4.5-8.0) Ur Specific [place] (1.000-1.035) Urine Protein (Negative) Urine Glucose (UA) (Negative) g/dL Urine Ketones (NEGATIVE) Urine Occult Blood (Negative) Urine Nitrate (Negative) Urine Bilirubin (NEGATIVE) Urine Urobilinogen (0.2) E.U./dL Ur Leukocyte Esterase (NEGATIVE) Urine RBC (0-5/HPF) Urine WBC (0-5/HPF) Ur Renal Epithelial Cell (0-1/HPF) Urine Bacteria (None) Hyaline Casts (None) Granular Casts (None) Ur Culture Indicated? SARS-CoV-2 (PCR) (Negative) Influenza A (RT-PCR) (NEGATIVE) Influenza B (RT-PCR) (NEGATIVE) RSV (PCR) (Negative) 11/23/22 11/23/22 11/23/22 Range/Units 11:30 11:35 11:50 WBC (4.5-11.0) X10^3/uL RBC (4.5-5.9) X10^6/uL Hgb (13.5-17.5) g/dL Hct (41-53) % MCV (80-100) fL MCH (26-34) PG MCHC (30-36) % RDW (11.6-14.8) % Plt Count (150-400) X10^3/uL Neut % (Auto) (50-75) % Lymph % (Auto) (25-40) % [place] % (Auto) (3-14) % Eos % (Auto) (2-4) % Baso % (Auto) (0-2) % Neut # (Auto) (1852-5439) /uL Lymph # (Auto) (5787-5949) /uL [place] # (Auto) (0-900) /uL Eos # (Auto) (0-450) /uL Baso # (Auto) (0-100) /uL PT 16.6 H (10.1-12.7) SECONDS INR 1.4 H (0.9-1.3) ABG pH (7.35-7.45) ABG pCO2 (35-45) mmHg ABG pO2 (80-100) mmHg ABG HCO3 (22-26) mmol/L ABG Total CO2 (21-31) mmol/L ABG O2 Saturation (95-100) % ABG Base Excess (-2-2) mmol/L VBG pH (7.33-7.43) VBG pCO2 (45-50) mmHg VBG pO2 (35-45) mmHg VBG HCO3 (23-28) mmol/L VBG Total CO2 (24-29) mmol/L VBG O2 Saturation (70-75) % VBG Base Excess (0-4) mmol/L FiO2 Sodium (137-145) mmol/L Potassium (3.4-5.1) mmol/L Chloride (98-107) mmol/L Carbon Dioxide (22-32) mmol/L BUN (9-20) mg/dL Creatinine (0.66-1.25) mg/dL Estimated GFR (>60) mL/min BUN/Creatinine Ratio (6-22) Glucose (80-110) mg/dL Lactate 3.0 H (0.7-2.1) mmol/L Calcium (8.4-10.2) mg/dL Magnesium (1.6-2.3) mg/dL Total Creatine Kinase (55-170) U/L CK-MB (CK-2) CK-MB (CK-2) Rel Index Troponin I (0.01-0.034) ng/mL NT-Pro-B Natriuret Pep (<450) pg/mL Lipase (23-300) U/L Procalcitonin (<0.5) ng/mL Urine Color Urine Appearance Urine pH (4.5-8.0) Ur Specific [place] (1.000-1.035) Urine Protein (Negative) Urine Glucose (UA) (Negative) g/dL Urine Ketones (NEGATIVE) Urine Occult Blood (Negative) Urine Nitrate (Negative) Urine Bilirubin (NEGATIVE) Urine Urobilinogen (0.2) E.U./dL Ur Leukocyte Esterase (NEGATIVE) Urine RBC (0-5/HPF) Urine WBC (0-5/HPF) Ur Renal Epithelial Cell (0-1/HPF) Urine Bacteria (None) Hyaline Casts (None) Granular Casts (None) Ur Culture Indicated? SARS-CoV-2 (PCR) Negative (Negative) Influenza A (RT-PCR) Flu a negative (NEGATIVE) Influenza B (RT-PCR) Flu b negative (NEGATIVE) RSV (PCR) Negative (Negative) 11/23/22 11/23/22 11/23/22 Range/Units 12:52 13:12 16:41 WBC (4.5-11.0) X10^3/uL RBC (4.5-5.9) X10^6/uL Hgb (13.5-17.5) g/dL Hct (41-53) % MCV (80-100) fL MCH (26-34) PG MCHC (30-36) % RDW (11.6-14.8) % Plt Count (150-400) X10^3/uL Neut % (Auto) (50-75) % Lymph % (Auto) (25-40) % [place] % (Auto) (3-14) % Eos % (Auto) (2-4) % Baso % (Auto) (0-2) % Neut # (Auto) (5150-9238) /uL Lymph # (Auto) (8261-5877) /uL [place] # (Auto) (0-900) /uL Eos # (Auto) (0-450) /uL Baso # (Auto) (0-100) /uL PT (10.1-12.7) SECONDS INR (0.9-1.3) ABG pH 7.44 (7.35-7.45) ABG pCO2 41.3 (35-45) mmHg ABG pO2 75 L (80-100) mmHg ABG HCO3 28 H (22-26) mmol/L ABG Total CO2 29 (21-31) mmol/L ABG O2 Saturation 95 (95-100) % ABG Base Excess 4.0 H (-2-2) mmol/L VBG pH 7.37 (7.33-7.43) VBG pCO2 49.6 (45-50) mmHg VBG pO2 43 (35-45) mmHg VBG HCO3 29 H (23-28) mmol/L VBG Total CO2 30 H (24-29) mmol/L VBG O2 Saturation 77 H (70-75) % VBG Base Excess 4.0 (0-4) mmol/L FiO2 21 Sodium (137-145) mmol/L Potassium (3.4-5.1) mmol/L Chloride (98-107) mmol/L Carbon Dioxide (22-32) mmol/L BUN (9-20) mg/dL Creatinine (0.66-1.25) mg/dL Estimated GFR (>60) mL/min BUN/Creatinine Ratio (6-22) Glucose (80-110) mg/dL Lactate (0.7-2.1) mmol/L Calcium (8.4-10.2) mg/dL Magnesium (1.6-2.3) mg/dL Total Creatine Kinase (55-170) U/L CK-MB (CK-2) CK-MB (CK-2) Rel Index Troponin I (0.01-0.034) ng/mL NT-Pro-B Natriuret Pep (<450) pg/mL Lipase (23-300) U/L Procalcitonin (<0.5) ng/mL Urine Color Yellow Urine Appearance Clear Urine pH 5.0 (4.5-8.0) Ur Specific [place] 1.020 (1.000-1.035) Urine Protein 2+ H (Negative) Urine Glucose (UA) 1+ H (Negative) g/dL Urine Ketones Negative (NEGATIVE) Urine Occult Blood Trace-intact (Negative) Urine Nitrate Negative (Negative) Urine Bilirubin Negative (NEGATIVE) Urine Urobilinogen 0.2 (0.2) E.U./dL Ur Leukocyte Esterase Negative (NEGATIVE) Urine RBC None seen (0-5/HPF) Urine WBC 0-1/hpf (0-5/HPF) Ur Renal Epithelial Cell 0-1/hpf (0-1/HPF) Urine Bacteria None seen (None) Hyaline Casts 1-5/lpf (None) Granular Casts 0-1/lpf (None) Ur Culture Indicated? Cult not indicated SARS-CoV-2 (PCR) (Negative) Influenza A (RT-PCR) (NEGATIVE) Influenza B (RT-PCR) (NEGATIVE) RSV (PCR) (Negative) Point of Care Testing Glucose POC 124 Point of care testing: Point of Care Testing Glucose POC 124 Critical Care Time Critical Care Time Critical Care Time: Yes Total Critical Care Time: 45 Attestation: The high probability of a clinically significant, sudden or life threatening deterioration of the [CV] system(s) required my full and direct attention, intervention and personal management. The aggregate critical care time was [45] minutes. This time is in addition to time spent performing reported procedures but includes the following: [x] Data Review and interpretation [x] Patient assessment and monitoring of vital signs [x] Documentation [x] Medication orders and management Discharge Plan Departure Patient Disposition: [facility] Clinical Impression: Inappropriate shocks from ICD (implantable cardioverter-defibrillator), Cardiogenic shock, Septic shock Prescriptions: No Action rosuvastatin [Crestor] 10 MG tablet 10 mg PO QPM Qty: 0 coenzyme Q10 [CoQ-10] 100 mg Capsule 100 mg PO DAILY Qty: 0 aspirin 81 MG tablet,delayed release (DR/EC) 81 mg OR QPM Qty: 0 insulin glargine 100 unit/mL solution 25 units subcut BID insulin aspart U-100 100 unit/mL solution 40 - 50 units subcut BID Label Comments: before meals [id number] [Osteo Bi-Flex (5-Loxin)] 1,500-400-100 mg-unit-mg Tablet 1 tab PO BID Label Comments: with a meal apixaban 2.5 mg tablet 2.5 mg PO BID finasteride 5 mg tablet 5 mg PO DAILY tamsulosin 0.4 mg capsule 0.4 mg PO DAILY metoprolol succinate 50 mg Tablet Extended Release 24 Hr 50 mg PO BID Qty: 180 0RF Entresto 49-51 mg tablet 1 tab PO BID Qty: 60 0RF metoprolol succinate 50 mg capsule,sprinkle,ER 24hr 50 mg PO DAILY Qty: 30 0RF metoprolol succinate 25 mg tablet extended release 24 hr 25 mg PO BID Qty: 20 0RF metoprolol succinate 25 mg tablet extended release 24 hr 25 mg PO BID Qty: 20 0RF metoprolol succinate 50 mg tablet extended release 24 hr 50 mg PO BID Qty: 20 0RF Referrals: Klever Gresham MD [Primary Care Provider] -
[2022-11-23 12:17] LABS: INR 1.4 (0.9-1.3); Prothrombin Time 16.6 SECONDS (10.1-12.7)
[2022-11-23 12:32] LABS: Procalcitonin 0.18 ng/mL (<0.5)
[2022-11-23] MEDS: SODIUM CHLORIDE 0.9% 2,190 ML 730 ML IV (12:56)
[2022-11-23] MEDS: LIDOCAINE 2% (GLYDO) 6 ML GEL TOP (12:56)
[2022-11-23] MEDS: PIPERACILLIN/TAZO 4.5 GM in SODIUM CHLORIDE 0.9% 100 ML IV (12:56)
[2022-11-23 12:57] LABS: NT-proBNP (BNP-Adult 18+) 933 pg/mL (<450); Troponin I 0.019 ng/mL (0.01-0.034)
[2022-11-23 13:00] LABS: BUN Creatinine Ratio 19.3 (6-22); Blood Urea Nitrogen 49 mg/dL (9-20); Calcium 9.2 mg/dL (8.4-10.2); Carbon Dioxide 28 mmol/L (22-32); Chloride 103 mmol/L (98-107); Estimated Glomerular Filt Rate 24 mL/min (>60); Glucose 108 mg/dL (80-110); Sodium 140 mmol/L (137-145)
[2022-11-23 13:02] LABS: HEMOLYSIS 72 (0-50)
[2022-11-23 13:03] LABS: Potassium 4.8 mmol/L (3.4-5.1)
[2022-11-23] MEDS: AZITHROMYCIN 500 MG in DEXTROSE 5% IN WATER 250 ML 250 MG IV (13:03)
[2022-11-23 13:06] LABS: Creatine Kinase 41 U/L (55-170)
[2022-11-23 13:07] LABS: Influenza A - CEPHEID Flu A NEGATIVE (NEGATIVE); Influenza B - CEPHEID Flu B NEGATIVE (NEGATIVE); Respiratory Syncytial Virus Negative (Negative)
[2022-11-23 13:11] LABS: Lipase 30 U/L (23-300); Magnesium 2.7 mg/dL (1.6-2.3)
[2022-11-23 13:15] LABS: COVID-19 CEPHEID 4-PLEX PCR Negative (Negative)
[2022-11-23 13:21] LABS: Appearance Urine UA CLEAR; Bilirubin Urine UA NEGATIVE (NEGATIVE); Color Urine UA YELLOW; Glucose Urine UA 1+ g/dL (Negative); Ketones Urine UA NEGATIVE (NEGATIVE); Leukocyte Esterase Urine UA NEGATIVE (NEGATIVE); Nitrite Urine UA NEGATIVE (Negative); Occult Blood Urine UA TRACE-INTACT (Negative); Protein Urine UA 2+ (Negative); Urobilinogen Urine UA 0.2 E.U./dL (0.2)
[2022-11-23 13:23] LABS: Fractionated Inspired Oxygen 21; HCO3 ABG 28 mmol/L (22-26); Oxygen Saturation ABG 95 % (95-100); PCO2 ABG 41.3 mmHg (35-45); PO2 ABG 75 mmHg (80-100); TCO2 ABG 29 mmol/L (21-31); pH ABG 7.44 (7.35-7.45)
[2022-11-23 13:31] LABS: RBC Urine None Seen (0-5/HPF)
[2022-11-23 13:32] LABS: Bacteria Urine None Seen; Culture Indicated Urine Cult Not Indicated; Granular Casts Urine 0-1/LPF; Hyaline Casts Urine 1-5/LPF; Renal Epithelial Cells Urine 0-1/HPF (0-1/HPF); WBC Urine 0-1/HPF (0-5/HPF)
[2022-11-23 13:44] LABS: Reflexed Lactate in 2 Hours Y
[2022-11-23] MEDS: NOREPINEPHRINE BITARTRATE/D5W 4 MG/250 ML PLAST..BAG 30 MG IV (15:07)
--- NOTE | 2022-11-23 16:10 | DI.RAD.S_ITS ---
PROCEDURE: XR CHEST 1V INDICATIONS: post line insertion TECHNIQUE: One view of the chest was acquired. COMPARISON: [facility], CR, XR CHEST 1V, 10/15/2022, 14:41. [facility], CR, XR CHEST 1V, 10/28/2022, 9:00. [facility], CR, XR CHEST 1V, 11/23/2022, 10:48. FINDINGS: Surgical changes and devices: There is a right-sided central line, with the tip overlying the mid aspect of the superior vena cava, 4 cm above the cavoatrial junction. An AICD is seen. The leads are seen in stable positions. Lungs and pleura: Lungs are clear. No pleural effusions or pneumothorax. Mediastinum: Mediastinal contours appear normal. Heart size is mildly to moderately enlarged. Atherosclerotic calcification of the aortic arch is noted. Bones and chest wall: No suspicious bony lesions. Age-appropriate bony degenerative changes are seen. Overlying soft tissues appear unremarkable. IMPRESSION: The tip of the right-sided central line can be seen overlying the mid superior vena cava. Dictated by: Drew Cifuentes M.D. on 11/23/2022 at 15:37 Approved by: Drew Cifuentes M.D. on 11/23/2022 at 15:38
[2022-11-23 16:52] LABS: HCO3 VBG 29 mmol/L (23-28); Oxygen Saturation VBG 77 % (70-75); PCO2 VBG 49.6 mmHg (45-50); PO2 VBG 43 mmHg (35-45); Total CO2 VBG 30 mmol/L (24-29); pH VBG 7.37 (7.33-7.43)
[2022-11-23 18:08] LABS: Lactate 2HR (Lactic Acid Rflx) 1.3 mmol/L (0.7-2.1)
== END 2022-11-23 18:32 | disposition short-term general hospital (02) ==
PROVIDERS: Emergency Provider Emergency Medicine; Family Provider Internal Medicine; PCP Internal Medicine
DX: R57.0 Cardiogenic shock (principal); A41.9 Sepsis, unspecified organism; T82.198A Other mechanical complication of other cardiac electronic device, initial encounter; I48.91 Unspecified atrial fibrillation; Z79.01 Long term (current) use of anticoagulants; Z95.0 Presence of cardiac pacemaker; Z79.899 Other long term (current) drug therapy; Z20.822 Contact with and (suspected) exposure to COVID-19
CPT/HCPCS: 0241U; 36415; 36600; 70450; 71045; 72125; 80048; 81001; 82550; 82805; 83605; 83690; 83735; 83880; 84145; 84484; 85025; 85610; 87040; 93005; 93010; 96365; 96366; 96367; 99285; 99291; G0390; J2543

== ENCOUNTER → 2023-03-24 11:43 | Outpatient (CLI) | payer MEDICARE, OTHER, SELFPAY ==
[2022-10-15 19:47] VITALS: BMI 27.8
[2023-03-24 12:52] LABS: BUN Creatinine Ratio 13.6 (6-22); Blood Urea Nitrogen 20 mg/dL (9-20); Calcium 8.7 mg/dL (8.4-10.2); Carbon Dioxide 29 mmol/L (22-32); Chloride 102 mmol/L (98-107); Cholesterol 116 mg/dL (140-199); Estimated Glomerular Filt Rate 47 mL/min (>60); Glucose 334 mg/dL (80-110); HDL Cholesterol 51 mg/dL (40-60); HEMOLYSIS < 15 (0-50); LDL Cholesterol Calculated 43 mg/dL (<100); Potassium 4.5 mmol/L (3.4-5.1); Sodium 137 mmol/L (137-145); Triglycerides 108 mg/dL (35-150)
== END ==
PROVIDERS: Family Provider Internal Medicine; PCP Internal Medicine; Referring Provider Internal Medicine Cardiovascular Disease; Visit Provider Internal Medicine Cardiovascular Disease
DX: E78.5 Hyperlipidemia, unspecified (principal); I50.22 Chronic systolic (congestive) heart failure
CPT/HCPCS: 36415; 80048; 80061

== ENCOUNTER → 2023-05-27 13:42 | Outpatient (CLI) | payer MEDICARE, OTHER, SELFPAY ==
[2022-10-15 19:47] VITALS: BMI 27.8
[2023-05-27 14:48] LABS: BUN Creatinine Ratio 13.1 (6-22); Blood Urea Nitrogen 17 mg/dL (9-20); Calcium 8.5 mg/dL (8.4-10.2); Carbon Dioxide 30 mmol/L (22-32); Chloride 99 mmol/L (98-107); Estimated Glomerular Filt Rate 54 mL/min (>60); Glucose 334 mg/dL (80-110); HEMOLYSIS < 15 (0-50); Potassium 4.5 mmol/L (3.4-5.1); Sodium 136 mmol/L (137-145)
[2023-05-27 15:47] LABS: Digoxin 0.5 ng/mL (0.8-2.0)
== END ==
PROVIDERS: Family Provider Internal Medicine; PCP Internal Medicine; Referring Provider Internal Medicine Cardiovascular Disease; Visit Provider Internal Medicine Cardiovascular Disease
DX: I50.22 Chronic systolic (congestive) heart failure (principal)
CPT/HCPCS: 36415; 80048; 80162

== ENCOUNTER → 2023-11-20 10:50 | Outpatient (CLI) | payer MEDICARE, OTHER, SELFPAY ==
[2022-10-15 19:47] VITALS: BMI 27.8
[2023-11-20 11:48] LABS: Hematocrit 48.4 % (41-53); Mean Corpuscular Hemoglobin 32.2 PG (26-34); Mean Corpuscular Volume 97.6 fL (80-100); Platelet Count 210 X10^3/uL (150-400); Red Blood Cell Count 4.96 X10^6/uL (4.5-5.9); Red Cell Distribution Width 14.8 % (11.6-14.8)
[2023-11-20 12:14] LABS: Cholesterol 129 mg/dL (140-199); HDL Cholesterol 50 mg/dL (40-60); LDL Cholesterol Calculated 60 mg/dL (<100); Triglycerides 94 mg/dL (35-150)
[2023-11-21 09:02] LABS: Digoxin < 0.4 ng/mL (0.8-2.0)
== END ==
LOC: LAB 10:52
PROVIDERS: Family Provider Internal Medicine; PCP Family Medicine; Referring Provider Internal Medicine Cardiovascular Disease; Visit Provider Internal Medicine Cardiovascular Disease
DX: E78.5 Hyperlipidemia, unspecified (principal); I50.22 Chronic systolic (congestive) heart failure
CPT/HCPCS: 36415; 80061; 80162; 85027

== ENCOUNTER → 2023-12-15 13:43 | Outpatient (CLI) | payer MEDICARE, OTHER, SELFPAY ==
[2022-10-15 19:47] VITALS: BMI 27.8
--- NOTE | 2023-12-15 13:44 | DI.ECHO.S_ITS ---
[facility]---------+ [facility] +---------+ : : [address] : : : : [id number] : : : : Phone: [phone] Echocardiogram Report + + :Name: FIOR RIOS Study Date: 12/15/2023 Height: 70 in : :[facility] ReadingLocation: Weight: 170 lb : : Gender: Male BSA: 1.9 m2 : :: 1940 Age: 83 yrs BP: 125/76 mmHg: :Reason For Study: CHEST PAIN : :Ordering Physician: MAXIME, : :GREGORY Performed By: Carolee López : :Referring: GREGORY SWARTZ : + + Interpretation Summary The left ventricle is mildly dilated. The ejection fraction is estimated to be 35-40%. Akinetic basal to mid inferior wall extending into the basal to mid inferolateral wall along with hypokinetic distal inferior wall and distal inferolateral wall. No significant change from the previous study. The right ventricle is normal in size and function. There is a pacemaker lead in the right ventricle. Suspect PMD of posterior mitral leaflet. The mitral regurgitant jet is eccentrically directed. Compared to the prior echo study, there has been no change in the severity of mitral regurgitation. There is mild tricuspid regurgitation. Compared to the prior echo exam, there has been no change in TR severity. Pulmonary artery pressures cannot be estimated because of the lack of a measurable TR jet velocity. Doppler profile across pulmonary valve suggests pulmonary hypertension. Procedure: A two-dimensional transthoracic echocardiogram with color flow and Doppler was performed. The study quality was technically adequate. Comparison is made with the echocardiogram of 10/16/2022. The patient has a paced rhythm. Likely underlying A-fib. Left Ventricle: The left ventricle is mildly dilated. There is normal left ventricular wall thickness. There is no thrombus. The ejection fraction is estimated to be 35-40%. Akinetic basal to mid inferior wall extending into the basal to mid inferolateral wall along with hypokinetic distal inferior wall and distal inferolateral wall. No significant change from the previous study. Diastolic function could not be accurately assessed due to atrial fibrillation. Right Ventricle: The right ventricle is normal in size and function. There is a pacemaker lead in the right ventricle. Atria: The left atrium is severely dilated. There has been no significant change since the previous study. The right atrium is severely dilated. There is a catheter/pacemaker lead seen in the right atrium. There is no Doppler evidence for an interatrial shunt. Mitral Valve: The mitral valve leaflets appear mildly thickened, but open well. There is mild mitral annular calcification. Suspect PMD of posterior mitral leaflet. There is moderate to severe mitral regurgitation. The mitral regurgitant jet is eccentrically directed. Compared to the prior echo study, there has been no change in the severity of mitral regurgitation. Aortic Valve: The aortic valve is trileaflet. The aortic valve is mildly calcified. There is no aortic valve stenosis. There is trace aortic regurgitation. Tricuspid Valve: The tricuspid valve leaflets are thin and pliable. There is mild tricuspid regurgitation. Pulmonary artery pressures cannot be estimated because of the lack of a measurable TR jet velocity. Compared to the prior echo exam, there has been no change in TR severity. Pulmonic Valve: The pulmonic valve leaflets are thin and pliable; valve motion is normal. There is mild pulmonic regurgitation. Doppler profile across pulmonary valve suggests pulmonary hypertension. Great Vessels: The aortic root is normal size. The dimensions of the ascending aorta are normal. The IVC is of normal diameter and collapses greater than 50% with a sniff. This suggests a low right atrial pressure of 3 mm Hg. Pericardium/ Pleura Mild pericardial effusion behind right atrium. Overall no significant pericardial effusion. There is no pleural effusion. MMode/2D Measurements & Calculations LVIDd: 6.0 cm LVOT diam: 2.1 cm LVIDs: 5.0 cm Ao root diam: 3.4 cm FS: 17.1 % asc Aorta Diam: 3.2 cm EPSS: 0.86 cm IVSd: 0.68 cm LVPWd: 0.70 cm LV nunez. diameter/BSA (cm/m^2): 3.1 LV sys. diameter/BSA (cm/m^2): 2.5 LA A2 area: 31.0 cm2 RA long axis: 6.3 cm LA A4 area: 30.4 cm2 RA area: 28.6 cm2 LA length (vol): 7.1 cm RA vol: 110.0 ml LA vol: 113.4 ml RA : 56.5 ml/m2 LA vol index: 58.2 ml/m2 IVC diam: 2.0 cm RVD1 (basal): 3.8 cm RVD2 (mid): 2.8 cm TAPSE: 1.7 cm Doppler Measurements & Calculations Ao V2 max: 111.9 cm/sec LVOT Max Joshua: 66.2 cm/sec Ao V2 mean: 84.3 cm/sec LV V1 max P.8 mmHg Ao max P.0 mmHg LV V1 VTI: 12.3 cm Ao mean P.1 mmHg (I,D): 2.1 cm2 Ao V2 VTI: 19.9 cm (V,D): 2.0 cm2 sev ratio: 0.62 indexed to BSA (cm^2/m^2): 1.1 MV E max joshua: 91.2 cm/sec TR max joshua: 207.5 cm/sec MV A max joshua: 1.3 cm/sec TR max P.2 mmHg MV E/A: 70.8 PA V2 max: 79.0 cm/sec Med Peak E' Joshua: 5.6 cm/sec PA V2 mean: 53.4 cm/sec E/E' med: 16.3 PA mean P.3 mmHg Lat Peak E' Joshua: 7.1 cm/sec PA pr(Accel): 36.2 mmHg E/E' lat: 12.9 E/e' average: 14.6 MV dec time: 0.10 sec MR ERO: 0.34 cm2 MR PISA: 5.0 cm2 SV(LVOT): 41.7 ml MR flow rate: 166.9 cm3/sec MR PISA radius: 0.90 cm Reading Physician:03:02 PM
== END ==
LOC: ECHO 13:43
PROVIDERS: Family Provider Internal Medicine; PCP Family Medicine; Referring Provider Internal Medicine Cardiovascular Disease; Visit Provider Internal Medicine Cardiovascular Disease
DX: J90 Pleural effusion, not elsewhere classified (principal); I08.1 Rheumatic disorders of both mitral and tricuspid valves; R07.9 Chest pain, unspecified; Z95.0 Presence of cardiac pacemaker
CPT/HCPCS: 93306

== ENCOUNTER → 2023-12-18 12:58 | Outpatient (CLI) | payer MEDICARE, OTHER, SELFPAY ==
[2022-10-15 19:47] VITALS: BMI 27.8
[2023-12-18 15:12] LABS: BUN Creatinine Ratio 24.6 (6-22); Blood Urea Nitrogen 31 mg/dL (9-20); Calcium 8.9 mg/dL (8.4-10.2); Carbon Dioxide 28 mmol/L (22-32); Chloride 99 mmol/L (98-107); Estimated Glomerular Filt Rate 56 mL/min (>60); Glucose 328 mg/dL (80-110); HEMOLYSIS < 15 (0-50); Potassium 4.9 mmol/L (3.4-5.1); Sodium 135 mmol/L (137-145)
== END ==
PROVIDERS: Family Provider Internal Medicine; PCP Family Medicine; Referring Provider Internal Medicine Cardiovascular Disease; Visit Provider Internal Medicine Cardiovascular Disease
DX: I50.22 Chronic systolic (congestive) heart failure (principal)
CPT/HCPCS: 36415; 80048

== ENCOUNTER 2024-05-02 08:26 | Emergency (ER) | payer MEDICARE, OTHER, SELFPAY ==
[2022-10-15 19:47] VITALS: BMI 27.8
[2024-05-02] VITALS (13 sets, daily range): BP systolic 133–138; BP diastolic 63–84; PULSE 84–93; RESP 18–27; TEMP 36.4; O2SAT 96–98; BMI 26.1
--- NOTE | 2024-05-02 08:40 | EKG_ITS ---
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
--- NOTE | 2024-05-02 08:42 | ED_ITS ---
HPI - Fall General Chief Complaint: Fall Stated Complaint: GLF Time Seen by Provider: 05/02/24 08:33 Source: patient and EMS Mode of arrival: EMS History of Present Illness HPI Narrative: Patient 83-year-old male history of atrial fibrillation on Eliquis insulin- dependent diabetes defibrillator presenting today with found down. He is actually found to be hypoglycemic. His found him on the floor glucose of 50. EMS was called. He is now sitting up and eating peanut butter and jelly and drinking orange juice. No obvious head injury. He denies any other pain or injury. He reports that his glucose and sugars have been off. He is either taking too much insulin or not enough. He states that he took 30 units of Lantus last night along with 40 units of NovoLog for a glucose of 341. He says that that is his normal insulin regimen. Denies any sort of chest pain or palpitations. He has not been ill recently. Related Data Home Medications Medication Instructions Recorded Confirmed aspirin 81 mg tablet,delayed 81 mg OR QPM ##0 12/11/17 05/02/24 release apixaban 2.5 mg tablet 2.5 mg PO BID 11/18/18 05/02/24 glucosamine [id number] 1 tab PO BID 11/18/18 09/03/23 robert 1,500 mg-400 unit-100 mg tablet (Osteo Bi-Flex (5-Loxin)) finasteride 5 mg tablet 5 mg PO DAILY 09/18/22 05/02/24 furosemide 20 mg tablet See Rx Instructions .Route .COMPLEX 08/13/23 05/02/24 insulin aspart U-100 100 unit/mL 15 unit SUBCUT BID 08/13/23 09/03/23 subcutaneous solution insulin glargine 100 unit/mL 65 unit SUBCUT BID 08/13/23 09/03/23 subcutaneous solution metoprolol succinate 50 mg 50 mg PO BID 08/13/23 05/02/24 tablet,extended release 24 hr mexiletine 150 mg capsule 150 mg PO Q8H 08/13/23 05/02/24 pantoprazole 40 mg granules 40 mg PO DAILY 08/13/23 09/03/23 delayed-release for susp in packet (Protonix) rosuvastatin 10 mg tablet (Crestor) 20 mg PO QPM #0 tabs 08/13/23 09/03/23 tamsulosin 0.4 mg capsule 0.8 mg PO DAILY 08/13/23 05/02/24 atorvastatin 40 mg tablet 20 mg PO DAILY 05/02/24 05/02/24 digoxin 125 mcg (0.125 mg) tablet 0.0125 mg PO Q OTHER DAY 05/02/24 05/02/24 docusate sodium 50 mg capsule mg PO BID 05/02/24 finasteride 5 mg tablet 5 mg PO DAILY 05/02/24 05/02/24 sacubitril 24 mg-valsartan 26 mg 1 tab PO BID 05/02/24 05/02/24 tablet (Entresto) Allergies Allergy/AdvReac Type Severity Reaction Status Date / Time amiodarone AdvReac Intermediate Verified 05/02/24 08:36 amoxicillin AdvReac Mild DIARRHEA Verified 05/02/24 08:36 naproxen AdvReac Mild DIARRHEA Verified 05/02/24 08:36 Patient History Medical History (Updated 05/02/24 @ 11:41 by Amparo Milan DO) Atrial fibrillation Myocardial infarction Ischemic cardiomyopathy Hyperlipidemia Hypertension Obesity Primary insomnia Snoring Type 2 diabetes mellitus Obstructive sleep apnea of adult Surgical History S/P implantation of automatic cardioverter/defibrillator (AICD) History of cholecystectomy History of ERCP History of partial knee replacement History of left knee replacement History of resection of pancreas History of splenectomy History of hernia repair Family History Father No problems noted. Mother Leukemia Social History household members: spouse Smoking Status: Former smoker alcohol intake: former Smoking Status: Former smoker alcohol intake frequency: holidays/special occasions only Substance Use Type: does not use Exam Initial Vital Signs Initial Vital Signs: Vital Signs Blood Pressure 133/77 05/02/24 08:26 GENERAL: Alert 83-year-old male sitting eating peanut butter and jelly and in no acute distress. HEENT: Head atraumatic,EOMI, pupils reactive, face symmetric, moist mucous membranes CARDIOVASCULAR: Irregularly regular RESPIRATORY: Breath sounds equal bilaterally, no wheezes rales or rhonchi. ABDOMEN: Soft, nontender. Normoactive bowel sounds all 4 quadrants. No guarding or rebound. EXTREMITIES: Normal range of motion, no clubbing or edema. Neurovascularly intact NEUROLOGICAL: Alert and oriented x4.Normal gait and speech. Cranial nerves II through XII grossly intact. Turf Grower strength equal bilaterally able to lift legs bilaterally SKIN: Warm, dry, no laceration, no petechiae, no rashes or lesions. Course Orders Ordered: ED Orders 05/02/24 08:00 Complete Blood Count AUTO DIFF Stat Comprehensive Metabolic Panel Stat Lipase Stat Troponin & CK Cardiac Panel Stat 05/02/24 08:40 CT head/brain wo con Stat XR chest 1V Stat EKG-12 Lead Stat 05/02/24 08:44 CT cervical spine wo con Stat 05/02/24 10:42 Trop I [Troponin I] Stat Vital Signs Vital signs: Vital Signs - 8 hr 05/02/24 08:26 05/02/24 08:28 05/02/24 08:30 Temperature Pulse Rate 85 89 Respiratory Rate 24 Blood Pressure 133/77 Pulse Oximetry 97 Oxygen Delivery Method 05/02/24 08:31 05/02/24 08:31 05/02/24 08:32 Temperature 97.5 F L Pulse Rate 85 85 Respiratory Rate 18 Blood Pressure 134/84 133/77 Pulse Oximetry 97 98 Oxygen Delivery Method Room Air 05/02/24 09:01 05/02/24 09:30 05/02/24 10:00 Temperature Pulse Rate 93 H 85 85 Respiratory Rate 19 20 Blood Pressure Pulse Oximetry Oxygen Delivery Method 05/02/24 10:30 05/02/24 11:00 05/02/24 11:07 Temperature Pulse Rate 85 84 85 Respiratory Rate 25 H 27 H Blood Pressure Pulse Oximetry 96 Oxygen Delivery Method 05/02/24 11:07 05/02/24 11:30 05/02/24 11:30 Temperature Pulse Rate 85 Respiratory Rate 20 Blood Pressure 138/63 135/67 Pulse Oximetry 97 Oxygen Delivery Method 05/02/24 12:41 Temperature Pulse Rate 84 Respiratory Rate 20 Blood Pressure 135/67 Pulse Oximetry 97 Oxygen Delivery Method Room Air MDM - Fall Lab Data 05/02/24 08:00 05/02/24 08:00 Labs: Lab Results 05/02/24 05/02/24 Range/Units 08:00 10:42 WBC 18.0 H (4.5-11.0) X10^3/uL RBC 4.66 (4.5-5.9) X10^6/uL Hgb 14.8 (13.5-17.5) g/dL Hct 45.6 (41-53) % MCV 97.9 (80-100) fL MCH 31.7 (26-34) PG MCHC 32.4 (30-36) % RDW 14.4 (11.6-14.8) % Plt Count 184 (150-400) X10^3/uL Neut % (Auto) 87.7 H (50-75) % Lymph % (Auto) 4.3 L (25-40) % Caroline % (Auto) 7.9 (3-14) % Eos % (Auto) 0.0 L (2-4) % Baso % (Auto) 0.1 (0-2) % Neut # (Auto) 60245 H (6078-7799) /uL Lymph # (Auto) 800 L (6138-5906) /uL Caroline # (Auto) 1400 H (0-900) /uL Eos # (Auto) 0 (0-450) /uL Baso # (Auto) 0 (0-100) /uL Sodium 140 (137-145) mmol/L Potassium 4.2 (3.4-5.1) mmol/L Chloride 105 (98-107) mmol/L Carbon Dioxide 26 (22-32) mmol/L BUN 22 H (9-20) mg/dL Creatinine 1.14 (0.66-1.25) mg/dL Estimated GFR > 60 (>60) mL/min BUN/Creatinine Ratio 19.3 (6-22) Glucose 69 L (80-110) mg/dL Calcium 9.0 (8.4-10.2) mg/dL Total Bilirubin 1.0 (0.2-1.3) mg/dL AST 36 (17-59) IU/L ALT 25 (<50) IU/L Alkaline Phosphatase 73 (38-126) U/L Total Creatine Kinase 100 (55-170) U/L Troponin I 0.037 H 0.040 H (0.01-0.034) ng/mL Total Protein 7.7 (6.3-8.2) g/dL Albumin 4.4 (3.5-5.0) g/dL Globulin 3.3 (1.7-4.1) g/dL Albumin/Globulin Ratio 1.3 (1.0-2.8) Lipase 25 (23-300) U/L Point of Care Testing Glucose POC 187 Urine Dip Bedside Urine Glucose 500 mg/dl Bedside Urine Bilirubin - Negative Bedside Urine Ketone - Negative Urine Specific [place] 1.020 Bedside Urine Occult Blood +/- Bedside Urine pH 5.5 Bedside Urine Protein + 30 Bedside Urine Urobilinogen - Negative Bedside Urine Nitrite - Negative Bedside Urine Leukocytes - Negative Esterase Imaging Data CT - cervical spine: Radiologist's Impression: PROCEDURE: CT CERVICAL SPINE WO CON INDICATIONS: found down TECHNIQUE: Noncontrast 3 mm thick sections acquired from the skull base to the T4 level. Sagittal and coronal reformats were then constructed. For radiation dose reduction, the following was used: automated exposure control, adjustment of mA and/or kV according to patient size. COMPARISON: [facility], CT, CT CERVICAL SPINE WO CON, 11/23/2022, 10:50. FINDINGS: Image quality: Diagnostic. Bones: No fractures or dislocations. Visualized superior ribs are intact. Multilevel degenerative changes with prominent anterior osteophytes from C3-C4 through C5 - 2C6 levels. Soft tissues: Prevertebral soft tissues are normal in thickness. No paravertebral hematomas. No apical pneumothoraces. IMPRESSION: No acute displaced fracture or traumatic subluxation. Approved by: Nancy Mckeon M.D.,Ph.D. on 05/02/2024 at 8:23 CT scan - head: Radiologist's Impression: PROCEDURE: CT HEAD/BRAIN WO CON INDICATIONS: found down on eliquis TECHNIQUE: Noncontrast 4.5 mm thick angled axial sections acquired from the foramen magnum to the vertex, with coronal and sagittal reformats. For radiation dose reduction, the following was used: automated exposure control, adjustment of mA and/or kV according to patient size. COMPARISON: [facility], CT, CT HEAD/BRAIN WO CON, 11/23/2022, 10:50. FINDINGS: Image quality: Diagnostic. CSF spaces: Basal cisterns are patent. No extra-axial fluid collections. The ventricles are symmetric in size and shape. Brain: No intracranial bleeds or masses. There is moderate diffuse cerebral volume loss with resultant ventricular and sulcal prominence. There are periventricular and deep white matter chronic small vessel ischemic changes. There is intracranial internal carotid artery atherosclerosis. Skull and face: Calvarium and visualized facial bones appear intact, without suspicious lesions. Sinuses: Visualized sinuses and mastoids are clear. IMPRESSION: No acute intracranial pathology. Approved by: Nancy Mckeon M.D.,Ph.D. on 05/02/2024 at 8:20 Chest x-ray: Radiologist's Impression: PROCEDURE: XR CHEST 1V INDICATIONS: found down TECHNIQUE: One view of the chest was acquired. COMPARISON: [facility], , XR CHEST 1V, 11/23/2022, 16:12. FINDINGS: Surgical changes and devices: Left chest wall AICD device with cardiac leads Lungs and pleura: Lungs are clear. No pleural effusions or pneumothorax. Mediastinum: Mediastinal contours appear normal. Heart size is enlarged. Aortic arch is calcified indicating atherosclerosis. Bones and chest wall: No suspicious bony lesions. Overlying soft tissues appear unremarkable. IMPRESSION: Cardiomegaly, as before. No other acute cardiopulmonary abnormality is seen. Approved by: Nancy Mckeon M.D.,Ph.D. on 05/02/2024 at 8:34 ECG Data Attestation: I personally reviewed and interpreted this ECG as follows: Prior ECG tracings: available for review Interpretation: Paced rhythm rate 85 no ischemic changes no Sgarbossa criteria, similar to prior MDM Narrative Medical decision making narrative: Patient 83-year-old male history of atrial fibrillation on Eliquis with defibrillator insulin-dependent diabetic presenting today with hypoglycemia and found down. He does keep meticulous records about his glucose and the medications he is given. He is getting Lantus twice daily he has had numerous hypoglycemic episodes over the last few days. There is a dxckkksu-av-knm who is at bedside who is a physician. Patient overall feeling significantly better he has had food and juice glucose is rising appropriately. Blood work has been reviewed WBC 18 hemoglobin 14.8 hematocrit 45.6, platelets 184, PT 16.6, INR is 1.4, sodium 140 potassium 4.2 chloride 105 carbon dioxide 26 BUN 22 creatinine 1.1 glucose 69, bilirubin 1.0 AST 36, ALT 25, trop 0.037 with repeat 0.040, thought to be in significant change Head CT and neck ct no acute intracranial process Chest x-ray no acute cardiopulmonary process Pacemaker was interrogated he previously has had it go often had no symptoms. I spoke with [employer] leather goods sales representative myself who says that the alerts for atrial fibrillations no defibrillation. Patient has a appointment with his PCP tomorrow to discuss insulin. Hobirzpn-hv-[id number] at bedside physician who is very familiar with insulin and is helping him to adjust. Will decrease his Lantus for now. Glucose has been stable here without dextrose. He is awake alert oriented. At this time no need for any sort of further workup. Discharge Plan Departure Patient Disposition: Home Clinical Impression: Hypoglycemia Instructions: DI for Hypoglycemia Activity Restrictions/Additional Instructions: *You have been diagnosed with hypoglycemia *What to do: Please discuss with your provider tomorrow about insulin regimen *Continue to take medications as directed *Follow up with your primary care provider in 2-3 days or call [phone] *Return to ER if you should have recurrent falls confusion or any new, worsening or concerning symptoms Prescriptions: No Action aspirin 81 MG tablet,delayed release (DR/EC) 81 mg OR QPM Qty: 0 rosuvastatin [Crestor] 10 mg tablet 20 mg PO QPM Qty: 0 metoprolol succinate 50 mg tablet extended release 24 hr 50 mg PO BID Rx Instructions: take with 25 mg furosemide 20 mg tablet See Rx Instructions .ROUTE .COMPLEX Rx Instructions: 20 mg orally every other day with digoxin alternating mexiletine 150 mg capsule 150 mg PO Q8H pantoprazole [Protonix] [address] for susp in packet 40 mg PO DAILY [id number] [Osteo Bi-Flex (5-Loxin)] 1,500-400-100 mg-unit-mg Tablet 1 tab PO BID Patient Comments: with a meal apixaban 2.5 mg tablet 2.5 mg PO BID insulin glargine 100 unit/mL solution 65 unit subcut BID insulin aspart U-100 100 unit/mL solution 15 unit subcut BID Patient Comments: before meals finasteride 5 mg tablet 5 mg PO DAILY tamsulosin 0.4 mg capsule 0.8 mg PO DAILY atorvastatin 40 mg tablet 20 mg PO DAILY Colace 50 mg Capsule PO BID digoxin 125 mcg (0.125 mg) tablet 0.0125 mg PO Q OTHER DAY Rx Instructions: every other day; alternate with furosemide finasteride 5 mg tablet 5 mg PO DAILY Entresto 24-26 mg tablet 1 tab PO BID Referrals: Sulaiman Reyes MD [Primary Care Provider] - Stand Alone Forms: Patient Portal/API
[2024-05-02 08:50] LABS: Add Manual Diff / Slide Review NO; Basophils Absolute Auto 0 /uL (0-100); Basophils Percent Auto 0.1 % (0-2); Eosinophils Absolute Auto 0 /uL (0-450); Hematocrit 45.6 % (41-53); Hemoglobin 14.8 g/dL (13.5-17.5); Lymphocytes Absolute Auto 800 /uL (1100-4500); Lymphocytes Percent Auto 4.3 % (25-40); Mean Corpuscular HGB Conc 32.4 % (30-36); Mean Corpuscular Hemoglobin 31.7 PG (26-34); Mean Corpuscular Volume 97.9 fL (80-100); Monocytes Absolute Auto 1400 /uL (0-900); Monocytes Percent Auto 7.9 % (3-14); Neutrophils Absolute Auto 15800 /uL (1500-7000); Neutrophils Percent Auto 87.7 % (50-75); Platelet Count 184 X10^3/uL (150-400); Red Blood Cell Count 4.66 X10^6/uL (4.5-5.9); Red Cell Distribution Width 14.4 % (11.6-14.8)
[2024-05-02 08:57] LABS: Alanine Aminotransferase 25 IU/L (<50); Albumin 4.4 g/dL (3.5-5.0); Albumin Globulin Ratio 1.3 (1.0-2.8); Alkaline Phosphatase 73 U/L (38-126); Aspartate Aminotransferase 36 IU/L (17-59); BUN Creatinine Ratio 19.3 (6-22); Blood Urea Nitrogen 22 mg/dL (9-20); Carbon Dioxide 26 mmol/L (22-32); Chloride 105 mmol/L (98-107); Creatine Kinase 100 U/L (55-170); Estimated Glomerular Filt Rate > 60 mL/min (>60); Globulin 3.3 g/dL (1.7-4.1); Glucose 69 mg/dL (80-110); HEMOLYSIS 42 (0-50); Lipase 25 U/L (23-300); Potassium 4.2 mmol/L (3.4-5.1); Sodium 140 mmol/L (137-145); Total Protein 7.7 g/dL (6.3-8.2)
[2024-05-02 09:07] LABS: Troponin I 0.037 ng/mL (0.01-0.034)
== END 2024-05-02 12:45 | disposition home or self-care (01) ==
PROVIDERS: Emergency Provider Emergency Medicine; Family Provider Internal Medicine; PCP Family Medicine
DX: E11.649 Type 2 diabetes mellitus with hypoglycemia without coma (principal); W19.XXXA Unspecified fall, initial encounter; Z79.899 Other long term (current) drug therapy
CPT/HCPCS: 36415; 70450; 71045; 72125; 80053; 81003; 82550; 82962; 83690; 84484; 85025; 93005; 99284

== ENCOUNTER → 2024-05-10 10:46 | Outpatient (CLI) | payer MEDICARE, OTHER, SELFPAY ==
[2022-10-15 19:47] VITALS: BMI 27.8
[2024-05-10 12:03] LABS: Alanine Aminotransferase 19 IU/L (<50); Albumin 3.8 g/dL (3.5-5.0); Albumin Globulin Ratio 1.3 (1.0-2.8); Alkaline Phosphatase 68 U/L (38-126); Aspartate Aminotransferase 23 IU/L (17-59); BUN Creatinine Ratio 16.9 (6-22); Blood Urea Nitrogen 24 mg/dL (9-20); Carbon Dioxide 33 mmol/L (22-32); Chloride 104 mmol/L (98-107); Cholesterol 128 mg/dL (140-199); Estimated Glomerular Filt Rate 48 mL/min (>60); Globulin 2.9 g/dL (1.7-4.1); Glucose 124 mg/dL (80-110); HDL Cholesterol 62 mg/dL (40-60); HEMOLYSIS < 15 (0-50); LDL Cholesterol Calculated 53 mg/dL (<100); Potassium 4.6 mmol/L (3.4-5.1); Sodium 140 mmol/L (137-145); Total Protein 6.7 g/dL (6.3-8.2); Triglycerides 66 mg/dL (35-150)
[2024-05-10 12:26] LABS: Digoxin < 0.4 ng/mL (0.8-2.0)
== END ==
LOC: LAB 10:47
PROVIDERS: Family Provider Internal Medicine; PCP Family Medicine; Referring Provider Internal Medicine Cardiovascular Disease; Visit Provider Internal Medicine Cardiovascular Disease
DX: I50.22 Chronic systolic (congestive) heart failure (principal); E78.5 Hyperlipidemia, unspecified
CPT/HCPCS: 36415; 80053; 80061; 80162

== ENCOUNTER 2024-07-17 07:53 | Emergency (ER) | payer MEDICARE, OTHER, SELFPAY ==
[2022-10-15 19:47] VITALS: BMI 27.8
[2024-07-17] VITALS (17 sets, daily range): BP systolic 118–139; BP diastolic 69–83; PULSE 84–85; RESP 11–26; TEMP 36.5; O2SAT 93–97; BMI 24.3
--- NOTE | 2024-07-17 08:04 | DI.RAD.S_ITS ---
PROCEDURE: XR CHEST 1V INDICATIONS: chest pain TECHNIQUE: One view of the chest was acquired. COMPARISON: [facility], CR, XR CHEST 1V, 05/02/2024, 8:41. FINDINGS: Surgical changes and devices: Pacemaker. Lungs and pleura: Lungs are clear. No pleural effusions or pneumothorax. Mediastinum: Mediastinal contours appear normal. Heart size is enlarged. Bones and chest wall: No suspicious bony lesions. Overlying soft tissues appear unremarkable. IMPRESSION: No acute pulmonary process. Dictated by: Terri Ngo M.D. on 07/17/2024 at 8:26 Approved by: Terri Ngo M.D. on 07/17/2024 at 8:26
--- NOTE | 2024-07-17 08:09 | EKG_ITS ---
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
[2024-07-17 08:10] LABS: Add Manual Diff / Slide Review NO; Basophils Absolute Auto 100 /uL (0-100); Basophils Percent Auto 0.7 % (0-2); Eosinophils Absolute Auto 100 /uL (0-450); Eosinophils Percent Auto 1.4 % (2-4); Hematocrit 46.6 % (41-53); Hemoglobin 15.5 g/dL (13.5-17.5); Lymphocytes Absolute Auto 3500 /uL (1100-4500); Lymphocytes Percent Auto 33.9 % (25-40); Mean Corpuscular HGB Conc 33.3 % (30-36); Mean Corpuscular Volume 96.2 fL (80-100); Monocytes Absolute Auto 1400 /uL (0-900); Monocytes Percent Auto 13.9 % (3-14); Neutrophils Absolute Auto 5200 /uL (1500-7000); Neutrophils Percent Auto 50.1 % (50-75); Platelet Count 191 X10^3/uL (150-400); Red Blood Cell Count 4.84 X10^6/uL (4.5-5.9); Red Cell Distribution Width 14.8 % (11.6-14.8); White Blood Cell Count 10.3 X10^3/uL (4.5-11.0)
[2024-07-17 08:15] LABS: INR 1.2 (0.9-1.3); Prothrombin Time 14.3 SECONDS (9.4-12.5)
[2024-07-17 08:17] LABS: PTT Partial Thromboplastin Tim 30 SECONDS (25.1-36.5)
[2024-07-17 08:19] LABS: Alanine Aminotransferase 25 IU/L (<50); Albumin 3.7 g/dL (3.5-5.0); Albumin Globulin Ratio 1.2 (1.0-2.8); Alkaline Phosphatase 69 U/L (38-126); Aspartate Aminotransferase 26 IU/L (17-59); BUN Creatinine Ratio 22.6 (6-22); Bilirubin Total 0.8 mg/dL (0.2-1.3); Blood Urea Nitrogen 26 mg/dL (9-20); Calcium 8.9 mg/dL (8.4-10.2); Carbon Dioxide 28 mmol/L (22-32); Chloride 105 mmol/L (98-107); Creatine Kinase 49 U/L (55-170); Estimated Glomerular Filt Rate > 60 mL/min (>60); Globulin 3.2 g/dL (1.7-4.1); Glucose 147 mg/dL (80-110); Lipase 29 U/L (23-300); Potassium 4.4 mmol/L (3.4-5.1); Sodium 136 mmol/L (137-145); Total Protein 6.9 g/dL (6.3-8.2)
[2024-07-17 08:22] LABS: HEMOLYSIS 85 (0-50)
--- NOTE | 2024-07-17 08:29 | ED_ITS ---
HPI - Arrhythmia/Palpitations General Chief Complaint: Arrhythmia/Palpitations Stated Complaint: AICD Fire Time Seen by Provider: 07/17/24 07:56 Source: patient Mode of arrival: Ambulatory History of Present Illness HPI narrative: 83-year-old male with history of congestive heart failure, history of remote Lane AICD device at [facility] 10+ years ago, had initial revision 2021, then had multiple shocks delivered, that apparently depleted the battery, had a 3rd Lane device placed [facility] November 2022 that is his current device, taking same medical regimen of Entresto and Eliquis and mexiletine, had previously been on amiodarone but switched to mexiletine after shocking episode late 2021, followed by local technology integration specialist Dr. Duncan who he last saw 2 months ago, no medications at that time, believes he had echocardiogram done in the last year so here. Patient was doing well recently, awakened from sleep 7:00 a.m. with a single shock, was not having any obvious palpitations or shortness of breath or chest discomfort, no subsequent chest pain or palpitation or shortness of breath. Related Data Home Medications Medication Instructions Recorded Confirmed aspirin 81 mg tablet,delayed 81 mg OR QPM ##0 12/11/17 05/02/24 release apixaban 2.5 mg tablet 2.5 mg PO BID 11/18/18 05/02/24 glucosamine [id number] 1 tab PO BID 11/18/18 09/03/23 robert 1,500 mg-400 unit-100 mg tablet (Osteo Bi-Flex (5-Loxin)) finasteride 5 mg tablet 5 mg PO DAILY 09/18/22 05/02/24 furosemide 20 mg tablet See Rx Instructions .Route .COMPLEX 08/13/23 05/02/24 insulin aspart U-100 100 unit/mL 15 unit SUBCUT BID 08/13/23 09/03/23 subcutaneous solution insulin glargine 100 unit/mL 65 unit SUBCUT BID 08/13/23 09/03/23 subcutaneous solution metoprolol succinate 50 mg 50 mg PO BID 08/13/23 05/02/24 tablet,extended release 24 hr mexiletine 150 mg capsule 150 mg PO Q8H 08/13/23 05/02/24 pantoprazole 40 mg granules 40 mg PO DAILY 08/13/23 09/03/23 delayed-release for susp in packet (Protonix) rosuvastatin 10 mg tablet (Crestor) 20 mg PO QPM #0 tabs 08/13/23 09/03/23 tamsulosin 0.4 mg capsule 0.8 mg PO DAILY 08/13/23 05/02/24 atorvastatin 40 mg tablet 20 mg PO DAILY 05/02/24 05/02/24 digoxin 125 mcg (0.125 mg) tablet 0.0125 mg PO Q OTHER DAY 05/02/24 05/02/24 docusate sodium 50 mg capsule mg PO BID 05/02/24 finasteride 5 mg tablet 5 mg PO DAILY 05/02/24 05/02/24 sacubitril 24 mg-valsartan 26 mg 1 tab PO BID 05/02/24 05/02/24 tablet (Entresto) Previous Rx's Medication Instructions Recorded metoprolol succinate 25 mg 75 mg (3 x 25 mg) PO BID #90 tabs 07/17/24 tablet,extended release 24 hr (Toprol XL) Allergies Allergy/AdvReac Type Severity Reaction Status Date / Time amiodarone AdvReac Intermediate Verified 05/02/24 08:36 amoxicillin AdvReac Mild DIARRHEA Verified 05/02/24 08:36 naproxen AdvReac Mild DIARRHEA Verified 05/02/24 08:36 Review of Systems Review of Systems Narrative: see HPI Patient History Medical History (Updated 07/17/24 @ 15:05 by Jamar Whelan MD) Atrial fibrillation Myocardial infarction Ischemic cardiomyopathy Hyperlipidemia Hypertension Obesity Primary insomnia Snoring Type 2 diabetes mellitus Obstructive sleep apnea of adult Surgical History S/P implantation of automatic cardioverter/defibrillator (AICD) History of cholecystectomy History of ERCP History of partial knee replacement History of left knee replacement History of resection of pancreas History of splenectomy History of hernia repair Family History Father No problems noted. Mother Leukemia Social History household members: spouse Smoking Status: Former smoker alcohol intake: former Smoking Status: Former smoker alcohol intake frequency: holidays/special occasions only Substance Use Type: does not use Exam Narrative Exam Narrative: GENERAL: Well-developed patient, in mild distress. HEAD: Atraumatic. Normocephalic. EYES: Pupils equal round and reactive. Extraocular motions intact. No scleral icterus. No injection or drainage. ENT: Nose without bleeding, purulent drainage. Throat without erythema, tonsillar hypertrophy or exudate. Airway patent. NECK: Trachea midline. Non tender CARDIOVASCULAR: Regular rate and rhythm, systolic murmur heard best left lateral chest, also left lower sternal border, gallops, or rubs. RESPIRATORY: Clear to auscultation. Breath sounds equal bilaterally. No wheezes, rales, or rhonchi. Left upper chest AICD device palpable, site appears without redness or fluctuance or tenderness or crepitance. No retractions or respiratory distress GASTROINTESTINAL: Abdomen soft, non-tender, nondistended. EXTREMITIES: No edema or joint tenderness. BACK: Nontender without deformity or crepitance. No flank tenderness. NEURO: AOx3. Nonfocal gross neuro motor exam SKIN: No rash or erythema of visible areas Initial Vital Signs Initial Vital Signs: Vital Signs Pulse Rate 85 07/17/24 08:03 Respiratory Rate 17 07/17/24 08:03 Pulse Oximetry 95 07/17/24 08:03 Course Orders Ordered: Discontinued Medications Aspirin (Aspirin 81 Mg Chew Tab) 324 mg PO NOW ONE Stop: 07/17/24 08:05 Last Admin: 07/17/24 08:05 Dose: Not Given Documented By: [facility] Vital Signs Vital signs: Vital Signs - 8 hr 07/17/24 13:30 07/17/24 13:30 07/17/24 14:00 Pulse Rate 84 Respiratory Rate 18 Blood Pressure 120/75 122/76 Pulse Oximetry 96 Oxygen Delivery Method 07/17/24 14:00 07/17/24 14:30 07/17/24 14:30 Pulse Rate 84 84 Respiratory Rate 18 18 Blood Pressure 123/70 Pulse Oximetry 94 96 Oxygen Delivery Method 07/17/24 15:00 07/17/24 15:00 Pulse Rate 84 Respiratory Rate 19 Blood Pressure 118/79 Pulse Oximetry 96 Oxygen Delivery Method Room Air MDM - Arrhythmia/Palpitations Lab Data Attestation: I reviewed the patient's lab results. 07/17/24 08:00 07/17/24 08:00 Labs: Lab Results 09/07/24 09/07/24 Range/Units 08:00 11:15 WBC 10.3 (4.5-11.0) X10^3/uL RBC 4.84 (4.5-5.9) X10^6/uL Hgb 15.5 (13.5-17.5) g/dL Hct 46.6 (41-53) % MCV 96.2 (80-100) fL MCH 32.0 (26-34) PG MCHC 33.3 (30-36) % RDW 14.8 (11.6-14.8) % Plt Count 191 (150-400) X10^3/uL Neut % (Auto) 50.1 (50-75) % Lymph % (Auto) 33.9 (25-40) % [place] % (Auto) 13.9 (3-14) % Eos % (Auto) 1.4 L (2-4) % Baso % (Auto) 0.7 (0-2) % Neut # (Auto) 5200 (7072-8240) /uL Lymph # (Auto) 3500 (0057-7292) /uL [place] # (Auto) 1400 H (0-900) /uL Eos # (Auto) 100 (0-450) /uL Baso # (Auto) 100 (0-100) /uL PT 14.3 H (9.4-12.5) SECONDS INR 1.2 (0.9-1.3) APTT 30 (25.1-36.5) SECONDS Sodium 136 L (137-145) mmol/L Potassium 4.4 (3.4-5.1) mmol/L Chloride 105 (98-107) mmol/L Carbon Dioxide 28 (22-32) mmol/L BUN 26 H (9-20) mg/dL Creatinine 1.15 (0.66-1.25) mg/dL Estimated GFR > 60 (>60) mL/min BUN/Creatinine Ratio 22.6 H (6-22) Glucose 147 H (80-110) mg/dL Calcium 8.9 (8.4-10.2) mg/dL Magnesium 2.0 (1.6-2.3) mg/dL Total Bilirubin 0.8 (0.2-1.3) mg/dL AST 26 (17-59) IU/L ALT 25 (<50) IU/L Alkaline Phosphatase 69 (38-126) U/L Total Creatine Kinase 49 L (55-170) U/L Troponin I < 0.012 < 0.012 (0.01-0.034) ng/mL NT-Pro-B Natriuret Pep 1740 H (<450) pg/mL Total Protein 6.9 (6.3-8.2) g/dL Albumin 3.7 (3.5-5.0) g/dL Globulin 3.2 (1.7-4.1) g/dL Albumin/Globulin Ratio 1.2 (1.0-2.8) Lipase 29 (23-300) U/L Digoxin < 0.4 L (0.8-2.0) ng/mL Point of Care Testing Glucose POC 153 Urine Dip Bedside Urine Glucose 250 mg/dl Bedside Urine Bilirubin - Negative Bedside Urine Ketone - Negative Urine Specific [place] 1.025 Bedside Urine Occult Blood - Negative Bedside Urine pH 6.0 Bedside Urine Protein - Negative Bedside Urine Urobilinogen - Negative Bedside Urine Nitrite - Negative Bedside Urine Leukocytes - Negative Esterase Imaging Data Chest x-ray: Radiologist's Impresson: [address] [address] XRay Report Signed Patient: Raul Ray MR#: [id number] : 1940 Acct:[id number] Age/Sex: 83 / M Date of Service: 07/17/24 Loc: ED Accession Number: [id number] Procedure: XR chest 1V Ordering Provider: Jamar Whelan MD PROCEDURE: XR CHEST 1V INDICATIONS: chest pain TECHNIQUE: One view of the chest was acquired. COMPARISON: [facility], , XR CHEST 1V, 05/02/2024, 8:41. FINDINGS: Surgical changes and devices: Pacemaker. Lungs and pleura: Lungs are clear. No pleural effusions or pneumothorax. Mediastinum: Mediastinal contours appear normal. Heart size is enlarged. Bones and chest wall: No suspicious bony lesions. Overlying soft tissues appear unremarkable. IMPRESSION: No acute pulmonary process. Dictated by: Terri Ngo M.D. on 07/17/2024 at 8:26 Approved by: Terri Ngo M.D. on 07/17/2024 at 8:26 ECG Data Attestation: I personally reviewed and interpreted this ECG as follows: Interpretation: Ventricular paced rhythm, ventricular rate 85, QRS 170, QTC 504. [facility] Narrative Medical decision making narrative: 83-year-old male with history of congestive heart failure, prior Lane brand AICD most recently revised November 2022 [facility], taking mexiletine and Entresto and Eliquis regimen, was awakened 7:00 a.m. with single shock from his device, no preceding or subsequent shortness of breath or chest pain. Screening EKG shows paced rhythm. Labs pending including electrolytes and troponin. Chest x-ray shows AICD device but no acute process, see radiology report. We will interrogate AICD device if possible here. Patient currently asymptomatic. Nursing was able to contact [employer], who will gather information from patient's device, and send faxed report. Records review. Cardiology report [facility] read by Dr. Duncan, date of service 12/15/2023. Impressions: ?Left ventricle is mildly dilated, ejection fraction estimated to be 35-40%. Akinetic basal to mid inferior wall extending into the basal to mid inferolateral wall along the hypokinetic distal inferior wall and distal inferior lateral wall. No significant change from previous study. Right ventricles normal in size and function. Pacemaker lead and right ventricle. Suspect PMD posterior mitral leaflet. Mitral regurgitant jet is eccentrically directed. Compared to the prior echo study there has been no change in severity of the mitral regurgitation. There is mild tricuspid regurgitation, no change from prior study. Pulmonary artery pressure can not be estimated because lack of a measurable TR jet velocity.? See echocardiogram dictation. Interval repeat troponin also negative. Awaiting results AICD interrogation Deterioration report received [employer]. At 07/17/24 @0650 hours there was single event ventricular fibrillation with rate to 22, treated with 800 volt shock x1. There was mentioned of nonsustained event not specified on 06/20/2024, no other recorded events per available report. 1415, case discussed with his technology integration specialist Dr. Duncan, who happened to be on- call, who was familiar with the patient, medications reviewed, keep same mexiletine dose for now, keep blood thinning medications, keep digoxin. Increase metoprolol XL dose from 50 mg daily to 75 mg daily. Call his office early next week for follow up appointment. Return precautions. Home with family. Digoxin level <0.4, we will increase metoprolol dose above for discharge as per cardiology recommendations, new Rx for Metoprol XL 25mg tabs sent, three tabs by mouth twice daily. Follow-up with Dr Duncan Critical Care Time Critical Care Time Total Critical Care Time: 31 Attestation: The high probability of a clinically significant, sudden or life threatening deterioration of the [cardiopulmonary] system(s) required my full and direct attention, intervention and personal management. The aggregate critical care time was [31] minutes. This time is in addition to time spent performing reported procedures but includes the following: [x] Data Review and interpretation [x] Patient assessment and monitoring of vital signs [x] Documentation [x] Medication orders and management Discharge Plan Departure Patient Disposition: Home Clinical Impression: AICD discharge, Ventricular fibrillation Activity Restrictions/Additional Instructions: 83-year-old male with known AICD, had shocking event this morning, interrogation of device showed that there was a ventricular fibrillation single event with fast heart rate 220 noted, this was defibrillated and shocked successfully x1. No other symptoms since that time. EKG here shows paced rhythm. Troponin blood tests not show evidence for heart attack at this time. Digoxin level was not measurable. Case was discussed with her technology integration specialist Dr. Duncan who advised continuation of Eliquis and mexiletine medications, suggested increased dose of metoprolol XL from 50 mg twice daily to 75 mg twice daily. Call his office on Friday. He can see you in close follow up. Return earlier to this/nearest emergency department for any change worsening symptoms or any concerns prior Prescriptions: New metoprolol succinate [Toprol XL] 25 mg tablet extended release 24 hr 75 mg PO BID Qty: 90 0RF No Action aspirin 81 MG tablet,delayed release (DR/EC) 81 mg OR QPM Qty: 0 rosuvastatin [Crestor] 10 mg tablet 20 mg PO QPM Qty: 0 metoprolol succinate 50 mg tablet extended release 24 hr 50 mg PO BID Rx Instructions: take with 25 mg furosemide 20 mg tablet See Rx Instructions .ROUTE .COMPLEX Rx Instructions: 20 mg orally every other day with digoxin alternating mexiletine 150 mg capsule 150 mg PO Q8H pantoprazole [Protonix] [address] for susp in packet 40 mg PO DAILY [id number] serr [Osteo Bi-Flex (5-Loxin)] 1,500-400-100 mg-unit-mg Tablet 1 tab PO BID Patient Comments: with a meal apixaban 2.5 mg tablet 2.5 mg PO BID insulin glargine 100 unit/mL solution 65 unit subcut BID insulin aspart U-100 100 unit/mL solution 15 unit subcut BID Patient Comments: before meals finasteride 5 mg tablet 5 mg PO DAILY tamsulosin 0.4 mg capsule 0.8 mg PO DAILY atorvastatin 40 mg tablet 20 mg PO DAILY Colace 50 mg Capsule PO BID digoxin 125 mcg (0.125 mg) tablet 0.0125 mg PO Q OTHER DAY Rx Instructions: every other day; alternate with furosemide finasteride 5 mg tablet 5 mg PO DAILY Entresto 24-26 mg tablet 1 tab PO BID Referrals: Rick Duncan MD [Physician] - Sulaiman Reyes MD [Primary Care Provider] - Stand Alone Forms: Patient Portal/API
--- NOTE | 2024-07-17 08:30 | PC.NURSE ---
Pt reports having an [employer] AICD. SENIOR CONTROLLER at bedside performing interrogation of device. Pt denies chest pain, dizziness, or lightheaded. Endorses feeling tired after his AICD fired.
[2024-07-17 08:31] LABS: NT-proBNP (BNP-Adult 18+) 1740 pg/mL (<450); Troponin I < 0.012 ng/mL (0.01-0.034)
--- NOTE | 2024-07-17 08:50 | PC.NURSE ---
Pt had a new pacemaker/AICD placed last year and denies using his phone to interrogate the device. Called who states they can send out a local rep if patient has not used his phone before. Pt was consulted and reports having a special device at home that family is bringing in. notified and holding on sending a sales representative printing.
--- NOTE | 2024-07-17 10:41 | PC.NURSE ---
[place] [facility] safety representative called with information regarding interrogation. States can see results but the fax itself did not send correctly. Rpt at 0650 pt received a shock due to afib with RVR, rate of 222. Leads are in correct position, pt is Bi V paced. Will call tech at [place] to receive interrogation paper fax.
[2024-07-17 11:49] LABS: Troponin I < 0.012 ng/mL (0.01-0.034)
[2024-07-17 14:46] LABS: Digoxin < 0.4 ng/mL (0.8-2.0)
== END 2024-07-17 15:26 | disposition home or self-care (01) ==
PROVIDERS: Emergency Provider Emergency Medicine; Family Provider Internal Medicine; PCP Family Medicine; Referring Provider Emergency Medicine
DX: I49.01 Ventricular fibrillation (principal); R07.9 Chest pain, unspecified; I50.9 Heart failure, unspecified; Z79.01 Long term (current) use of anticoagulants; Z79.899 Other long term (current) drug therapy; E11.9 Type 2 diabetes mellitus without complications; Z45.02 Encounter for adjustment and management of automatic implantable cardiac defibrillator
CPT/HCPCS: 36415; 71045; 80053; 80162; 81003; 82550; 82962; 83690; 83735; 83880; 84484; 85025; 85610; 85730; 93005; 93010; 99284; 99291

== ENCOUNTER → 2024-11-16 13:34 | Outpatient (CLI) | payer MEDICARE, OTHER, SELFPAY ==
[2022-10-15 19:47] VITALS: BMI 27.8
[2024-11-16 14:57] LABS: Alanine Aminotransferase 31 IU/L (<50); Albumin 4.1 g/dL (3.5-5.0); Albumin Globulin Ratio 1.5 (1.0-2.8); Alkaline Phosphatase 90 U/L (38-126); Aspartate Aminotransferase 27 IU/L (17-59); BUN Creatinine Ratio 18.9 (6-22); Bilirubin Total 1.5 mg/dL (0.2-1.3); Blood Urea Nitrogen 25 mg/dL (9-20); Calcium 9.7 mg/dL (8.4-10.2); Carbon Dioxide 31 mmol/L (22-32); Chloride 99 mmol/L (98-107); Estimated Glomerular Filt Rate 53 mL/min (>60); Globulin 2.8 g/dL (1.7-4.1); Glucose 294 mg/dL (80-110); HEMOLYSIS 25 (0-50); Potassium 5.3 mmol/L (3.4-5.1); Sodium 138 mmol/L (137-145); Total Protein 6.9 g/dL (6.3-8.2)
[2024-11-16 15:06] LABS: Digoxin < 0.4 ng/mL (0.8-2.0)
== END ==
PROVIDERS: Family Provider Internal Medicine; PCP Family Medicine; Referring Provider Internal Medicine Cardiovascular Disease; Visit Provider Internal Medicine Cardiovascular Disease
DX: I50.22 Chronic systolic (congestive) heart failure (principal)
CPT/HCPCS: 36415; 80053; 80162

== ENCOUNTER → 2024-11-29 14:13 | Outpatient (CLI) | payer MEDICARE, OTHER, SELFPAY ==
[2022-10-15 19:47] VITALS: BMI 27.8
--- NOTE | 2024-11-29 14:14 | DI.RAD.S_ITS ---
PROCEDURE: XR CHEST 2V INDICATIONS: COUGH TECHNIQUE: 2 views of the chest were acquired. COMPARISON: [facility], CR, XR CHEST 1V, 07/17/2024, 8:07. FINDINGS: Heart, mediastinum and pulmonary vascular: Mild cardiomegaly is unchanged. AICD device in stable satisfactory position without complication. Mediastinum and pulmonary vessels are normal. Lungs: Clear Pleural spaces: Normal-no effusions or pneumothorax. Bones and soft tissues: Normal IMPRESSION: No acute disease-stable Dictated by: Scott Mar M.D. on 11/30/2024 at 11:02 Approved by: Scott Mar M.D. on 11/30/2024 at 11:03
== END ==
PROVIDERS: Family Provider Internal Medicine; PCP Family Medicine; Referring Provider Family Medicine; Visit Provider Family Medicine
DX: R05.1 Acute cough (principal); I51.7 Cardiomegaly; Z95.810 Presence of automatic (implantable) cardiac defibrillator
CPT/HCPCS: 71046

== ENCOUNTER → 2024-12-06 10:32 | Outpatient (CLI) | payer MEDICARE, OTHER, SELFPAY ==
[2022-10-15 19:47] VITALS: BMI 27.8
[2024-12-06 11:23] LABS: BUN Creatinine Ratio 23.8 (6-22); Blood Urea Nitrogen 38 mg/dL (9-20); Calcium 9.3 mg/dL (8.4-10.2); Carbon Dioxide 28 mmol/L (22-32); Chloride 97 mmol/L (98-107); Estimated Glomerular Filt Rate 42 mL/min (>60); Glucose 254 mg/dL (80-110); HEMOLYSIS < 15 (0-50); Potassium 5.2 mmol/L (3.4-5.1); Sodium 135 mmol/L (137-145)
== END ==
PROVIDERS: Family Provider Internal Medicine; PCP Family Medicine; Referring Provider Internal Medicine Cardiovascular Disease; Visit Provider Internal Medicine Cardiovascular Disease
DX: I50.22 Chronic systolic (congestive) heart failure (principal); I25.10 Atherosclerotic heart disease of native coronary artery without angina pectoris
CPT/HCPCS: 36415; 80048

== ENCOUNTER 2024-12-10 13:11 | Inpatient (IN) | payer MEDICARE, OTHER, SELFPAY ==
[2022-10-15 19:47] VITALS: BMI 27.8
[2024-12-10] VITALS (12 sets, daily range): BP systolic 110–135; BP diastolic 56–76; PULSE 76–86; RESP 15–32; TEMP 36.2–36.4; O2SAT 90–99; BMI 22.6; BMI 21.2
--- NOTE | 2024-12-10 13:18 | ED_ITS ---
HPI - Weakness General Chief complaint: Diabetic Problem Stated complaint: Lethargic,DMI-hyperglycemia Time Seen by Provider: 12/10/24 13:18 History of Present Illness HPI Narrative: 84-year-old male with a history of diabetes AFib on Eliquis, CHF with remote avid AICD device at [facility] placed over 10 years ago with revision in 2021, comes into the ED from urgent care for increased weakness. Daughter at bedside states that his symptoms all started approximately 1 month ago, states has been on antibiotics and steroids completed this about 1 week ago, but has had persistent chest tightness as well as generalized weakness therefore decided come into the ED for further evaluation treatment., evaluation patient stating he just feels generalized weakness as well as chest tightness but no actual chest pain, states that he has also been coughing but this has slightly improved. Has been compliant with all his medications otherwise. Related Data Home Medications Medication Instructions Recorded Confirmed aspirin 81 mg tablet,delayed 81 mg OR QPM ##0 12/11/17 05/02/24 release apixaban 2.5 mg tablet 2.5 mg PO BID 11/18/18 05/02/24 glucosamine [id number] 1 tab PO BID 11/18/18 09/03/23 robert 1,500 mg-400 unit-100 mg tablet (Osteo Bi-Flex (5-Loxin)) finasteride 5 mg tablet 5 mg PO DAILY 09/18/22 05/02/24 furosemide 20 mg tablet See Rx Instructions .Route .COMPLEX 08/13/23 05/02/24 insulin aspart U-100 100 unit/mL 15 unit SUBCUT BID 08/13/23 09/03/23 subcutaneous solution insulin glargine 100 unit/mL 65 unit SUBCUT BID 08/13/23 09/03/23 subcutaneous solution metoprolol succinate 50 mg 50 mg PO BID 08/13/23 05/02/24 tablet,extended release 24 hr mexiletine 150 mg capsule 150 mg PO Q8H 08/13/23 05/02/24 pantoprazole 40 mg granules 40 mg PO DAILY 08/13/23 09/03/23 delayed-release for susp in packet (Protonix) rosuvastatin 10 mg tablet (Crestor) 20 mg PO QPM #0 tabs 08/13/23 09/03/23 tamsulosin 0.4 mg capsule 0.8 mg PO DAILY 08/13/23 05/02/24 atorvastatin 40 mg tablet 20 mg PO DAILY 05/02/24 05/02/24 digoxin 125 mcg (0.125 mg) tablet 0.0125 mg PO Q OTHER DAY 05/02/24 05/02/24 docusate sodium 50 mg capsule mg PO BID 05/02/24 finasteride 5 mg tablet 5 mg PO DAILY 05/02/24 05/02/24 sacubitril 24 mg-valsartan 26 mg 1 tab PO BID 05/02/24 05/02/24 tablet (Entresto) Previous Rx's Medication Instructions Recorded metoprolol succinate 25 mg 75 mg (3 x 25 mg) PO BID #90 tabs 07/17/24 tablet,extended release 24 hr (Toprol XL) Allergies Allergy/AdvReac Type Severity Reaction Status Date / Time amiodarone AdvReac Intermediate Verified 12/10/24 13:12 amoxicillin AdvReac Mild DIARRHEA Verified 12/10/24 13:12 naproxen AdvReac Mild DIARRHEA Verified 12/10/24 13:12 Review of Systems Review of Systems Narrative: General: Positive generalized weakness, Denies fever, chills, weight loss HEENT: Denies headache, eye drainage, eye irritation, head trauma, sore throat, voice change Cardiovascular: Denies any chest pain, palpitations, shortness of breath, tachycardia Respiratory: Positive cough, positive chest tightness, denies stridor wheeze GI/: Denies any abdominal pain, nausea, vomiting, diarrhea, bright red blood per rectum, melanotic stools, urinary frequency, urinary retention, dysuria, hematuria MSK: Denies any joint pain, muscle pains, swelling Skin: Denies any rashes, lesions, discoloration Neuro: Denies any headache, lightheadedness, dizziness, fainting, weakness Psych: Denies SI/HI Patient History Medical History (Updated 12/10/24 @ 15:20 by Flo Cabrera DO) Atrial fibrillation Myocardial infarction Ischemic cardiomyopathy Hyperlipidemia Hypertension Obesity Primary insomnia Snoring Type 2 diabetes mellitus Obstructive sleep apnea of adult Surgical History S/P implantation of automatic cardioverter/defibrillator (AICD) History of cholecystectomy History of ERCP History of partial knee replacement History of left knee replacement History of resection of pancreas History of splenectomy History of hernia repair Family History Father No problems noted. Mother Leukemia Social History household members: spouse Smoking Status: Former smoker alcohol intake: former Smoking Status: Former smoker alcohol intake frequency: holidays/special occasions only Exam Narrative Exam Narrative: General: Cooperative, comfortable, well-developed, not in acute distress HEENT: Normocephalic, atraumatic, PERRLA, normal sclera, eyelids normal, Neck: Active full range of motion, atraumatic Chest: Normal to inspection, negative crepitus, no overlying erythema ecchymosis Respiratory: Coughing on exam, Normal respiratory effort, not in acute respiratory distress, clear to auscultation bilaterally negative wheeze, tachypnea, rhonchi, rales Cardiology: Regular rate rhythm negative gallop, murmur, rubs GI/: Normal to inspection, soft, nonrigid, no tenderness to palpation, exam deferred MSK: Full range of active range of motion of all 4 extremities, atraumatic Skin: No rashes lesions noted Neuro: Alert awake oriented x3, moves all 4 extremities spontaneously, cranial nerves intact, able to answer all questions appropriately follows commands appropriately Psych: Cooperative, negative suicidal or homicidal ideations Initial Vital Signs Initial Vital Signs: Vital Signs Temperature 97.5 F L 12/10/24 13:18 Pulse Rate 86 12/10/24 13:18 Respiratory Rate 15 12/10/24 13:18 Blood Pressure 135/66 12/10/24 13:18 Pulse Oximetry 99 12/10/24 13:18 Oxygen Delivery Method Room Air 12/10/24 13:18 Course Orders Ordered: ED Orders 12/10/24 13:00 CBC Auto Diff [Complete Blood Count AUTO DIFF] Stat CMP [Comprehensive Metabolic Panel] Stat Lactate (Lactic Acid) Stat Lipase Stat MAG [Magnesium] Stat NT-proBNP (BNP-Adult 18+) Stat Troponin & CK Cardiac Panel Stat 12/10/24 13:24 VBG [Venous Blood Gas] STAT 12/10/24 13:25 CT head/brain wo con Stat CXR [XR chest 1V] Stat EKG-12 Lead Stat 12/10/24 14:23 Covid-19 + FLU A/B + RSV - PCR Stat 12/10/24 15:15 Blood Culture Stat Discontinued Medications Furosemide (Furosemide 40 Mg/4 Ml Vial) 40 mg IV NOW ONE Stop: 12/10/24 15:21 Last Admin: 12/10/24 15:31 Dose: 40 mg Sodium Chloride (Normal Saline 0.9%) 1,000 mls @ 1,000 mls/hr IV BOLUS ONE Stop: 12/10/24 14:44 Last Infusion: 12/10/24 15:15 Dose: Infused Documented By: Admin: 12/10/24 14:07 Dose: 1,000 mls/hr Documented By: PORTIA Calcium Gluconate 4.65 meq/ (Sodium Chloride) 60 mls @ 180 mls/hr IV NOW ONE Stop: 12/10/24 14:05 Last Infusion: 12/10/24 14:32 Dose: Infused Documented By: Admin: 12/10/24 14:09 Dose: 180 mls/hr Documented By: PORTIA Insulin Human Regular (Insulin Regular 100 Unit/Ml 3 Ml Vial) 5 unit IV NOW ONE Stop: 12/10/24 13:47 Last Admin: 12/10/24 14:19 Dose: 5 unit Documented By: PORTIA Co-signed By: NADINE Vital Signs Vital signs: Vital Signs - 8 hr 12/10/24 13:18 12/10/24 13:20 12/10/24 13:30 Temperature 97.5 F L Pulse Rate 86 84 85 Respiratory Rate 15 15 21 Blood Pressure 135/66 Pulse Oximetry 99 94 92 Oxygen Delivery Method Room Air 12/10/24 13:31 12/10/24 13:31 12/10/24 13:49 Temperature Pulse Rate 85 85 Respiratory Rate 32 H 21 Blood Pressure 120/56 L Pulse Oximetry 96 92 Oxygen Delivery Method 12/10/24 13:49 12/10/24 14:00 12/10/24 14:00 Temperature Pulse Rate 85 Respiratory Rate 19 Blood Pressure 128/67 123/65 Pulse Oximetry 94 Oxygen Delivery Method Room Air 12/10/24 14:30 12/10/24 14:30 12/10/24 15:00 Temperature Pulse Rate 85 85 Respiratory Rate 22 23 Blood Pressure 119/69 Pulse Oximetry 90 L Oxygen Delivery Method Room Air 12/10/24 15:30 12/10/24 15:30 Temperature Pulse Rate 85 Respiratory Rate 20 Blood Pressure 125/76 Pulse Oximetry Oxygen Delivery Method MDM - Weakness Differential Diagnosis Differential diagnosis: Likely dehydration and other (DKA, pneumonia, urinary tract infection, CVA) Lab Data 12/10/24 13:00 12/10/24 13:00 Labs: Lab Results 12/10/24 12/10/24 Range/Units 13:00 14:23 WBC 11.4 H (4.5-11.0) X10^3/uL RBC 5.26 (4.5-5.9) X10^6/uL Hgb 16.6 (13.5-17.5) g/dL Hct 51.9 (41-53) % MCV 98.7 (80-100) fL MCH 31.6 (26-34) PG MCHC 32.0 (30-36) % RDW 14.6 (11.6-14.8) % Plt Count 213 (150-400) X10^3/uL Neut % (Auto) 78.8 H (50-75) % Lymph % (Auto) 9.9 L (25-40) % [place] % (Auto) 10.1 (3-14) % Eos % (Auto) 0.5 L (2-4) % Baso % (Auto) 0.7 (0-2) % Neut # (Auto) 9000 H (9911-0619) /uL Lymph # (Auto) 1100 (9586-0702) /uL [place] # (Auto) 1200 H (0-900) /uL Eos # (Auto) 100 (0-450) /uL Baso # (Auto) 100 (0-100) /uL Sodium 132 L (137-145) mmol/L Potassium 5.7 H (3.4-5.1) mmol/L Chloride 95 L (98-107) mmol/L Carbon Dioxide 27 (22-32) mmol/L BUN 38 H (9-20) mg/dL Creatinine 1.72 H (0.66-1.25) mg/dL Estimated GFR 38 L (>60) mL/min BUN/Creatinine Ratio 22.1 H (6-22) Glucose 597 H* D (80-110) mg/dL Lactate 2.4 H (0.7-2.1) mmol/L Calcium 9.4 (8.4-10.2) mg/dL Magnesium 2.0 (1.6-2.3) mg/dL Total Bilirubin 1.5 H (0.2-1.3) mg/dL AST 56 (17-59) IU/L ALT 49 (<50) IU/L Alkaline Phosphatase 129 H (38-126) U/L Total Creatine Kinase 57 (55-170) U/L Troponin I < 0.012 (0.01-0.034) ng/mL NT-Pro-B Natriuret Pep 2570 H (<450) pg/mL Total Protein 8.3 H (6.3-8.2) g/dL Albumin 4.4 (3.5-5.0) g/dL Globulin 3.9 (1.7-4.1) g/dL Albumin/Globulin Ratio 1.1 (1.0-2.8) Lipase 58 (23-300) U/L SARS-CoV-2 (PCR) Negative (Negative) Influenza A (RT-PCR) Flu a negative (NEGATIVE) Influenza B (RT-PCR) Flu b negative (NEGATIVE) RSV (PCR) Negative (Negative) Point of Care Testing Glucose POC 473 Imaging Data Chest x-ray: Radiologist Impression: [address] [address] XRay Report Signed Patient: Raul Ray MR#: [id number] : 1940 Acct:[id number] Age/Sex: 84 / M Date of Service: 12/10/24 Loc: ED Accession Number: [id number] Procedure: XR chest 1V Ordering Provider: Flo Cabrera D.O. PROCEDURE: XR CHEST 1V INDICATIONS: weakness, cough TECHNIQUE: One view of the chest was acquired. COMPARISON: [facility], CR, XR CHEST 1V, 05/02/2024, 8:41. [facility], CT, CT HEAD/BRAIN WO CON, 12/10/2024, 13:29. [facility], CR, XR CHEST 1V, 07/17/2024, 8:07. [facility], CR, XR CHEST 2V, 11/29/2024, 14:11. FINDINGS: Surgical changes and devices: An AICD is seen. The leads are seen in stable positions. Lungs and pleura: On this semiupright portable chest examination, no large pneumothorax or large pleural effusions are seen. No focal infiltrates are seen. The lungs appear hyperexpanded. Mediastinum: Mediastinal contours appear normal. Heart size is moderately enlarged. Atherosclerotic calcification of the aortic arch is noted. Bones and chest wall: No suspicious bony lesions. Age-appropriate bony degenerative changes are seen. Overlying soft tissues appear unremarkable. IMPRESSION: Moderate cardiomegaly. Clear lungs. Postoperative and degenerative changes are seen. CT scan - head: Radiologist Impression: [address] [address] [address] Scan Report Signed Patient: Raul Ray MR#: [id number] : 1940 Acct:[id number] Age/Sex: 84 / M Date of Service: 12/10/24 Loc: ED Accession Number: [id number] Procedure: CT head/brain wo con Ordering Provider: Flo Cabrera D.O. PROCEDURE: CT HEAD/BRAIN WO CON INDICATIONS: weakness TECHNIQUE: Noncontrast 4.5 mm thick angled axial sections acquired from the foramen magnum to the vertex, with coronal and sagittal reformats. For radiation dose reduction, the following was used: automated exposure control, adjustment of mA and/or kV according to patient size. COMPARISON: [facility], CR, XR CHEST 1V, 12/10/2024, 13:23. [facility], CT, CT HEAD/BRAIN WO CON, 11/23/2022, 10:50. [facility], CT, CT HEAD/BRAIN WO CON, 05/02/2024, 8:52. FINDINGS: Image quality: Diagnostic. CSF spaces: Basal cisterns are patent. No extra-axial fluid collections. The ventricles are symmetric in size and shape. Brain: No intracranial bleeds or masses. There is cerebral volume loss for age, with resultant ventricular and sulcal prominence. There are periventricular and deep white matter chronic small vessel ischemic changes. There is intracranial internal carotid artery atherosclerosis. Skull and face: Calvarium and visualized facial bones appear intact, without suspicious lesions. Sinuses: Mild scattered mucosal thickening can be seen within the paranasal sinuses. No abnormal fluid is seen within the mastoid air cells. IMPRESSION: No imaging explanation is found for this patient's presenting symptoms. If there is strong clinical suspicion for an acute stroke, please consider a brain MRI for further evaluation, as it is more sensitive (assuming that there is no contraindication to MRI). ECG Data Interpretation: EKG interpreted ED physician ventricularly paced at 85 beats per minute QTC 506 no STEMI MDM Narrative Medical decision making narrative: 84-year-old male presenting for increased weakness cough chest tightness ongoing persistent for a proximally 1 month, according to daughter at bedside had been on antibiotics and steroids last dose was approximately 1 week ago, however patient persistently/progressively getting more weak therefore decided come into the ED for evaluation treatment. Patient's lab work remarkable for hyperkalemia at 5.7, patient with hyperglycemia in the 500s but not in DKA elevated BNP patient requiring supplemental oxygen, remainder of imaging and workup otherwise unremarkable. Patient will be admitted for acute CHF requiring supplemental oxygen as well as hyperkalemia. The patient's management plan was discussed Dr. Reyes, who agrees to admit the patient to their service and assumes care of this patient at this time. Full admission orders will be placed by the primary team. Discharge Plan Departure Patient Disposition: Admitted As Inpatient Clinical Impression: Acute hyperkalemia, CHF (congestive heart failure), Acute hyperglycemia
--- NOTE | 2024-12-10 13:25 | DI.CT.S_ITS ---
PROCEDURE: CT HEAD/BRAIN WO CON INDICATIONS: weakness TECHNIQUE: Noncontrast 4.5 mm thick angled axial sections acquired from the foramen magnum to the vertex, with coronal and sagittal reformats. For radiation dose reduction, the following was used: automated exposure control, adjustment of mA and/or kV according to patient size. COMPARISON: [facility], CR, XR CHEST 1V, 12/10/2024, 13:23. [facility], CT, CT HEAD/BRAIN WO CON, 11/23/2022, 10:50. [facility], CT, CT HEAD/BRAIN WO CON, 05/02/2024, 8:52. FINDINGS: Image quality: Diagnostic. CSF spaces: Basal cisterns are patent. No extra-axial fluid collections. The ventricles are symmetric in size and shape. Brain: No intracranial bleeds or masses. There is cerebral volume loss for age, with resultant ventricular and sulcal prominence. There are periventricular and deep white matter chronic small vessel ischemic changes. There is intracranial internal carotid artery atherosclerosis. Skull and face: Calvarium and visualized facial bones appear intact, without suspicious lesions. Sinuses: Mild scattered mucosal thickening can be seen within the paranasal sinuses. No abnormal fluid is seen within the mastoid air cells. IMPRESSION: No imaging explanation is found for this patient's presenting symptoms. If there is strong clinical suspicion for an acute stroke, please consider a brain MRI for further evaluation, as it is more sensitive (assuming that there is no contraindication to MRI). Dictated by: Drew Cifuentes M.D. on 12/10/2024 at 13:02 Approved by: Drew Cifuentes M.D. on 12/10/2024 at 13:03
--- NOTE | 2024-12-10 13:25 | EKG_ITS ---
[place] [id number] [place] [id number] Test Date: 2024-12-10 Pat Name: Raul Ray Department: [facility] Room: Gender: Male Physician Compensation Analyst: BRIAN : 1940 Requested By: Order Number: [id number] Reading MD: Flo Riley Measurements Intervals [place] Rate: 85 P: DC: QRS: 267 QRSD: 178 T: 85 QT: 426 QTc: 506 Interpretive Statements Ventricular-paced rhythm Biventricular pacemaker detected Electronically Signed On 12-15-2024 23:42:01 PST by Flo Riley
--- NOTE | 2024-12-10 13:25 | DI.RAD.S_ITS ---
PROCEDURE: XR CHEST 1V INDICATIONS: weakness, cough TECHNIQUE: One view of the chest was acquired. COMPARISON: [facility], CR, XR CHEST 1V, 05/02/2024, 8:41. [facility], CT, CT HEAD/BRAIN WO CON, 12/10/2024, 13:29. [facility], CR, XR CHEST 1V, 07/17/2024, 8:07. [facility], CR, XR CHEST 2V, 11/29/2024, 14:11. FINDINGS: Surgical changes and devices: An AICD is seen. The leads are seen in stable positions. Lungs and pleura: On this semiupright portable chest examination, no large pneumothorax or large pleural effusions are seen. No focal infiltrates are seen. The lungs appear hyperexpanded. Mediastinum: Mediastinal contours appear normal. Heart size is moderately enlarged. Atherosclerotic calcification of the aortic arch is noted. Bones and chest wall: No suspicious bony lesions. Age-appropriate bony degenerative changes are seen. Overlying soft tissues appear unremarkable. IMPRESSION: Moderate cardiomegaly. Clear lungs. Postoperative and degenerative changes are seen. Dictated by: Drew Cifuentes M.D. on 12/10/2024 at 13:03 Approved by: Drew Cifuentes M.D. on 12/10/2024 at 13:04
[2024-12-10 13:35] LABS: Add Manual Diff / Slide Review NO; Basophils Absolute Auto 100 /uL (0-100); Basophils Percent Auto 0.7 % (0-2); Eosinophils Absolute Auto 100 /uL (0-450); Eosinophils Percent Auto 0.5 % (2-4); Hematocrit 51.9 % (41-53); Hemoglobin 16.6 g/dL (13.5-17.5); Lymphocytes Absolute Auto 1100 /uL (1100-4500); Lymphocytes Percent Auto 9.9 % (25-40); Mean Corpuscular Hemoglobin 31.6 PG (26-34); Mean Corpuscular Volume 98.7 fL (80-100); Monocytes Absolute Auto 1200 /uL (0-900); Monocytes Percent Auto 10.1 % (3-14); Neutrophils Absolute Auto 9000 /uL (1500-7000); Neutrophils Percent Auto 78.8 % (50-75); Platelet Count 213 X10^3/uL (150-400); Red Blood Cell Count 5.26 X10^6/uL (4.5-5.9); Red Cell Distribution Width 14.6 % (11.6-14.8); White Blood Cell Count 11.4 X10^3/uL (4.5-11.0)
[2024-12-10 13:41] LABS: Alanine Aminotransferase 49 IU/L (<50); Albumin 4.4 g/dL (3.5-5.0); Albumin Globulin Ratio 1.1 (1.0-2.8); Alkaline Phosphatase 129 U/L (38-126); Aspartate Aminotransferase 56 IU/L (17-59); BUN Creatinine Ratio 22.1 (6-22); Bilirubin Total 1.5 mg/dL (0.2-1.3); Blood Urea Nitrogen 38 mg/dL (9-20); Calcium 9.4 mg/dL (8.4-10.2); Carbon Dioxide 27 mmol/L (22-32); Chloride 95 mmol/L (98-107); Creatine Kinase 57 U/L (55-170); Estimated Glomerular Filt Rate 38 mL/min (>60); Globulin 3.9 g/dL (1.7-4.1); Lactate (Lactic Acid) 2.4 mmol/L (0.7-2.1); Lipase 58 U/L (23-300); Sodium 132 mmol/L (137-145); Total Protein 8.3 g/dL (6.3-8.2)
[2024-12-10 13:43] LABS: Glucose 597 mg/dL (80-110); HEMOLYSIS 93 (0-50); Potassium 5.7 mmol/L (3.4-5.1)
[2024-12-10 13:50] LABS: NT-proBNP (BNP-Adult 18+) 2570 pg/mL (<450)
[2024-12-10 13:53] LABS: Troponin I < 0.012 ng/mL (0.01-0.034)
[2024-12-10] MEDS: SODIUM CHLORIDE 0.9% 1,000 ML 1000 ML IV (14:07)
[2024-12-10] MEDS: CALCIUM GLUCONATE 4.65 MEQ in SODIUM CHLORIDE 0.9% 50 ML 180 MEQ IV (14:09)
[2024-12-10] MEDS: SODIUM ZIRCONIUM CYCLOSILICATE 10 GM POWD.PACK PO (14:14)
[2024-12-10] MEDS: INSULIN REGULAR 100 UNIT/ML 3 ML VIAL IV (14:19)
[2024-12-10 15:07] LABS: Reflexed Lactate in 2 Hours Y
[2024-12-10 15:11] LABS: Influenza A - CEPHEID Flu A NEGATIVE (NEGATIVE); Influenza B - CEPHEID Flu B NEGATIVE (NEGATIVE); Respiratory Syncytial Virus Negative (Negative)
[2024-12-10 15:13] LABS: COVID-19 CEPHEID 4-PLEX PCR Negative (Negative)
[2024-12-10] MEDS: FUROSEMIDE 40 MG/4 ML VIAL IV (15:31)
[2024-12-10 16:06] LABS: Lactate 2HR (Lactic Acid Rflx) 1.7 mmol/L (0.7-2.1)
--- NOTE | 2024-12-10 17:10 | PC.NURSE ---
Patient is alert and oriented x4, his skin check was done. He denies pain but has a loud, productive cough. Upon auscultation of lungs, he has wheezes in his r.upper lobes and l.lower lobes. He is on room air and sats are 97%.. Blood sugar 462. Awaiting to see Dr. Reyes as patient does not have any orders yet, he should be coming to round on patient soon.
--- NOTE | 2024-12-10 17:41 | PM.HP.1 ---
History of Present Illness History of Present Illness Date Patient Seen: 12/10/24 Chief complaint: Lethargic,DMI-hyperglycemia Narrative: Pleasant 84yo gentleman presented to my clinic as an outpt with cc offrequent urination. UA was unremarkable except for glucosuria. BG POCT proved to be over 600 in the office. On probing he reported being sick lately and not being able to stay on top of his diabetes medications for the last few days. 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 I had concern for this presentation for possible DKA so he was trasnferred to ED via EMS where he was found to have elevated BNP and some heart strain diastolic CHF. Although not strictly DKA he was right on the cusp with some hyperkalemia. Discussed plan to admit and diurese with family they are onboard. [facility] Medical History (Updated 12/10/24 @ 15:20 by Flo Cabrera DO) Atrial fibrillation Myocardial infarction Ischemic cardiomyopathy Hyperlipidemia Hypertension Obesity Primary insomnia Snoring Type 2 diabetes mellitus Obstructive sleep apnea of adult Surgical History S/P implantation of automatic cardioverter/defibrillator (AICD) History of cholecystectomy History of ERCP History of partial knee replacement History of left knee replacement History of resection of pancreas History of splenectomy History of hernia repair Family History Father No problems noted. Mother Leukemia Social History household members: spouse Smoking Status: Former smoker alcohol intake: former Meds Home Medications and Allergies Home Medications Medication Instructions Recorded Confirmed Type aspirin 81 mg tablet,delayed 81 mg OR QPM ##0 12/11/17 05/02/24 History release apixaban 2.5 mg tablet 2.5 mg PO BID 11/18/18 12/10/24 History glucosamine CKp-V5-[id number] 1 tab PO BID 11/18/18 09/03/23 History robert 1,500 mg-400 unit-100 mg tablet (Osteo Bi-Flex (5-Loxin)) furosemide 20 mg tablet See Rx Instructions .Route .COMPLEX 08/13/23 05/02/24 History insulin aspart U-100 100 unit/mL 15 unit SUBCUT BID 08/13/23 09/03/23 History subcutaneous solution insulin glargine 100 unit/mL 65 unit SUBCUT BID 08/13/23 09/03/23 History subcutaneous solution metoprolol succinate 50 mg 50 mg PO BID 08/13/23 05/02/24 History tablet,extended release 24 hr mexiletine 150 mg capsule 150 mg PO Q8H 08/13/23 12/10/24 History pantoprazole 40 mg granules 40 mg PO DAILY 08/13/23 09/03/23 History delayed-release for susp in packet (Protonix) rosuvastatin 10 mg tablet (Crestor) 20 mg PO QPM #0 tabs 08/13/23 09/03/23 History tamsulosin 0.4 mg capsule 0.8 mg PO DAILY 08/13/23 05/02/24 History atorvastatin 40 mg tablet 20 mg PO DAILY 05/02/24 05/02/24 History digoxin 125 mcg (0.125 mg) tablet 0.0125 mg PO Q OTHER DAY 05/02/24 05/02/24 History docusate sodium 50 mg capsule mg PO BID 05/02/24 History finasteride 5 mg tablet 5 mg PO DAILY 05/02/24 05/02/24 History sacubitril 24 mg-valsartan 26 mg 1 tab PO BID 05/02/24 05/02/24 History tablet (Entresto) metoprolol succinate 25 mg 75 mg (3 x 25 mg) PO BID #90 tabs 07/17/24 Rx tablet,extended release 24 hr (Toprol XL) Allergies Allergy/AdvReac Type Severity Reaction Status Date / Time amiodarone AdvReac Intermediate Verified 12/10/24 13:12 amoxicillin AdvReac Mild DIARRHEA Verified 12/10/24 13:12 naproxen AdvReac Mild DIARRHEA Verified 12/10/24 13:12 Review of Systems Review of Systems Narrative: all systems reviewed and negative except as otherwise documented in hpi Exam Vital Signs (past 8 hours): - 12/10/24 13:18 12/10/24 13:20 12/10/24 13:30 Temperature 97.5 F L Pulse Rate 86 84 85 Respiratory Rate 15 15 21 Blood Pressure 135/66 Pulse Oximetry 99 94 92 Oxygen Delivery Method Room Air 12/10/24 13:31 12/10/24 13:31 12/10/24 13:49 Temperature Pulse Rate 85 85 Respiratory Rate 32 H 21 Blood Pressure 120/56 L Pulse Oximetry 96 92 Oxygen Delivery Method 12/10/24 13:49 12/10/24 14:00 12/10/24 14:00 Temperature Pulse Rate 85 Respiratory Rate 19 Blood Pressure 128/67 123/65 Pulse Oximetry 94 Oxygen Delivery Method Room Air 12/10/24 14:30 12/10/24 14:30 12/10/24 15:00 Temperature Pulse Rate 85 85 Respiratory Rate 22 23 Blood Pressure 119/69 Pulse Oximetry 90 L Oxygen Delivery Method Room Air 12/10/24 15:30 12/10/24 15:30 Temperature Pulse Rate 85 Respiratory Rate 20 Blood Pressure 125/76 Pulse Oximetry Oxygen Delivery Method Oxygen Delivery Method Room Air Narrative Exam Narrative: pale elder weak on standing laying in bed Const Other: well developed looks shaky HENMT Other: normocephalic atraumatic Resp Other: moving air well bilaterally, one faint wheeze but generally clear to auscultation, tachypneic mildly Cardio Other: regular rate, s1/s2, no pedal edema GI Other: soft nontender active bowel sounds Neuro Other: alert awake oriented moving all limbs cn 2-12 grossly intact Extrem Other: no pedal edema Objective Labs 12/10/24 13:00 12/10/24 13:00 Labs: Laboratory Results - last 24 hr 12/10/24 12/10/24 12/10/24 13:00 14:23 15:40 WBC 11.4 H RBC 5.26 Hgb 16.6 Hct 51.9 MCV 98.7 MCH 31.6 MCHC 32.0 RDW 14.6 Plt Count 213 Neut % (Auto) 78.8 H Lymph % (Auto) 9.9 L [place] % (Auto) 10.1 Eos % (Auto) 0.5 L Baso % (Auto) 0.7 Neut # (Auto) 9000 H Lymph # (Auto) 1100 [place] # (Auto) 1200 H Eos # (Auto) 100 Baso # (Auto) 100 Sodium 132 L Potassium 5.7 H Chloride 95 L Carbon Dioxide 27 BUN 38 H Creatinine 1.72 H Estimated GFR 38 L BUN/Creatinine Ratio 22.1 H Glucose 597 H* D Lactate 2.4 H 1.7 Calcium 9.4 Magnesium 2.0 Total Bilirubin 1.5 H AST 56 ALT 49 Alkaline Phosphatase 129 H Total Creatine Kinase 57 Troponin I < 0.012 NT-Pro-B Natriuret Pep 2570 H Total Protein 8.3 H Albumin 4.4 Globulin 3.9 Albumin/Globulin Ratio 1.1 Lipase 58 SARS-CoV-2 (PCR) Negative Influenza A (RT-PCR) Flu a negative Influenza B (RT-PCR) Flu b negative RSV (PCR) Negative Assessment & Plan Assessment & Plan narrative: #type 1 diabetes with hyperglycemia #lactic acidosis resume insulin dosing he does not see endocrine as an outpatient he does not have an insulin pump these might need fixed on discharge continue insulin short and long with corrective SSI and IVF due for a1c will get in morning labs #hyperkalemia mild responding to insulin and fluids, monitor #hypertension a/w diabetes stable BP vitals ok continue home regimen with prn hydralazine #hyperlipidemia stable continue home meds #BPH continue home meds - i suspect nocturia is due to glucose not BPH but he is due for PSA will get in morning labs. #elevated BNP #acute on chronic diastolic and systolic heart failure elevated BNP feeling bad diuresing with lasix 40mg iv continue track BNPs supplemental o2 as needed last echo over a year ago had systolic EF 35-40% #hx of COPD breathing ok, prn duonebs ordered Dispo: admit for diuresis and glucose management diet: carb controlled MDM: daughter Matthias Verma [phone] [id number] Code: DNR Time-Based Coding :: [TOTAL MINUTES] spent with patient and on the chart (including review of chart, obtaining history, exam, reviewing outside data, placing orders, documenting exam and treatment plan, and counseling patient) on [DATE]. Quality VTE Deep Vein Thrombosis/Pulmonary Embolism Present on Admission: No
[2024-12-10] MEDS: SODIUM CHLORIDE 0.9% 1,000 ML 100 ML IV (17:57)
[2024-12-10] MEDS: INSULIN GLARGINE 100 UNIT/ML 3ML PEN 60 UNIT SUBCUT (18:43)
[2024-12-10] MEDS: INSULIN LISPRO 100 UNIT/ML 3ML VIAL 15 UNIT SUBCUT (18:44)
[2024-12-10] MEDS: METOPROLOL ER 25 MG TABLET 75 MG PO (21:55)
[2024-12-10] MEDS: APIXABAN 5 MG TABLET 2.5 MG PO (21:55)
[2024-12-10] MEDS: ATORVASTATIN 20 MG TABLET PO (21:58)
[2024-12-11] VITALS (11 sets, daily range): BP systolic 92–121; BP diastolic 55–76; PULSE 81–90; RESP 17–20; TEMP 36.2–37; O2SAT 94–100
[2024-12-11 01:13] LABS: Add Manual Diff / Slide Review NO; Basophils Absolute Auto 200 /uL (0-100); Basophils Percent Auto 1.3 % (0-2); Eosinophils Absolute Auto 200 /uL (0-450); Eosinophils Percent Auto 1.1 % (2-4); Hematocrit 45.7 % (41-53); Hemoglobin 14.8 g/dL (13.5-17.5); Lymphocytes Absolute Auto 1100 /uL (1100-4500); Lymphocytes Percent Auto 8.3 % (25-40); Mean Corpuscular HGB Conc 32.4 % (30-36); Mean Corpuscular Hemoglobin 31.2 PG (26-34); Mean Corpuscular Volume 96.1 fL (80-100); Monocytes Absolute Auto 1400 /uL (0-900); Monocytes Percent Auto 10.6 % (3-14); Neutrophils Absolute Auto 10500 /uL (1500-7000); Neutrophils Percent Auto 78.7 % (50-75); Platelet Count 203 X10^3/uL (150-400); Red Blood Cell Count 4.76 X10^6/uL (4.5-5.9); Red Cell Distribution Width 14.1 % (11.6-14.8); White Blood Cell Count 13.4 X10^3/uL (4.5-11.0)
[2024-12-11 01:23] LABS: Alanine Aminotransferase 37 IU/L (<50); Albumin 3.4 g/dL (3.5-5.0); Albumin Globulin Ratio 1.1 (1.0-2.8); Alkaline Phosphatase 88 U/L (38-126); Aspartate Aminotransferase 35 IU/L (17-59); BUN Creatinine Ratio 20.4 (6-22); Bilirubin Total 0.7 mg/dL (0.2-1.3); Blood Urea Nitrogen 33 mg/dL (9-20); Carbon Dioxide 31 mmol/L (22-32); Chloride 101 mmol/L (98-107); Estimated Glomerular Filt Rate 41 mL/min (>60); Glucose 80 mg/dL (80-110); HEMOLYSIS 16 (0-50); Potassium 4.2 mmol/L (3.4-5.1); Sodium 139 mmol/L (137-145); Total Protein 6.4 g/dL (6.3-8.2)
[2024-12-11 01:53] LABS: NT-proBNP (BNP-Adult 18+) 2100 pg/mL (<450)
[2024-12-11] MEDS: SODIUM CHLORIDE 0.9% 1,000 ML 100 ML IV (03:49)
--- NOTE | 2024-12-11 08:08 | PC.NURSE ---
Pt's BG dropped from 400+ at 1500 to 170's at 2130, then in the 80's at 2230. (See MAR for insulin administered prior to this shift) This RN continued to spot check pt through the night approx Q1 hr, supplementing with 15 g Juice, and protein (see POC glucose charting) until pt stabilized above 120. AM labs drawn at 0030 to check potassium range (K resulted at 4.2) Telemetry applied at 2230 per hyperkalemia protocol.
[2024-12-11] MEDS: METOPROLOL ER 25 MG TABLET 75 MG PO ×2 (08:31→20:15)
[2024-12-11] MEDS: APIXABAN 5 MG TABLET 2.5 MG PO ×2 (08:34→20:16)
[2024-12-11] MEDS: TAMSULOSIN 0.4 MG CAPSULE 0.8 MG PO (08:34)
[2024-12-11] MEDS: FINASTERIDE 5 MG TABLET PO (08:34)
[2024-12-11] MEDS: PANTOPRAZOLE DR 40 MG TABLET PO (08:34)
[2024-12-11] MEDS: INSULIN LISPRO 100 UNIT/ML 3ML VIAL SUBCUT ×2 (08:35→17:05)
[2024-12-11] MEDS: INSULIN LISPRO 100 UNIT/ML 3ML VIAL 15 UNIT SUBCUT (08:35)
[2024-12-11] MEDS: INSULIN GLARGINE 100 UNIT/ML 3ML PEN 60 UNIT SUBCUT (08:36)
--- NOTE | 2024-12-11 09:19 | P.PN_ITS ---
Subjective Subjective Interval history: Chief complaint hyperglycemia Patient is feeling much better this morning sugars have normalized dramatically he is urinating and responds to diuresis however still requiring oxygen supplementation via nasal cannula on which he is not at baseline. Endorses desire to eat large bowl of ice cream. His children are caring for his spouse at the moment we are pending today echo and PTOT eval. Exam Vital Signs (past 8 hours): - 12/11/24 08:00 12/11/24 08:31 Temperature 98.6 F Pulse Rate 81 86 Respiratory Rate 17 Blood Pressure 121/64 109/70 Pulse Oximetry 99 Oxygen Flow Rate 3 Oxygen Delivery Method Nasal Cannula Oxygen Flow Rate 3 Narrative Exam Narrative: Alert older sitting up in bed watching TV Const Other: Well-developed well-nourished Resp Other: Moving air okay on 1 L via nasal cannula at 88% saturation does have a bit of a wet cough which he says is not unusual for him there are bibasilar crackles evident on auscultation Cardio Other: Regular rate S1-S2 no pedal edema GI Other: Soft nontender active bowel sounds Neuro Other: Alert awake oriented moving all limbs equally Objective Labs 12/11/24 00:27 12/11/24 00:27 Labs: Laboratory Results - last 24 hr 12/10/24 12/10/24 12/10/24 13:00 14:23 15:40 WBC 11.4 H RBC 5.26 Hgb 16.6 Hct 51.9 MCV 98.7 MCH 31.6 MCHC 32.0 RDW 14.6 Plt Count 213 Neut % (Auto) 78.8 H Lymph % (Auto) 9.9 L [place] % (Auto) 10.1 Eos % (Auto) 0.5 L Baso % (Auto) 0.7 Neut # (Auto) 9000 H Lymph # (Auto) 1100 [place] # (Auto) 1200 H Eos # (Auto) 100 Baso # (Auto) 100 Sodium 132 L Potassium 5.7 H Chloride 95 L Carbon Dioxide 27 BUN 38 H Creatinine 1.72 H Estimated GFR 38 L BUN/Creatinine Ratio 22.1 H Glucose 597 H* D Hemoglobin A1c Lactate 2.4 H 1.7 Calcium 9.4 Magnesium 2.0 Total Bilirubin 1.5 H AST 56 ALT 49 Alkaline Phosphatase 129 H Total Creatine Kinase 57 Troponin I < 0.012 NT-Pro-B Natriuret Pep 2570 H Total Protein 8.3 H Albumin 4.4 Globulin 3.9 Albumin/Globulin Ratio 1.1 Lipase 58 SARS-CoV-2 (PCR) Negative Influenza A (RT-PCR) Flu a negative Influenza B (RT-PCR) Flu b negative RSV (PCR) Negative 12/11/24 00:27 WBC 13.4 H RBC 4.76 Hgb 14.8 Hct 45.7 MCV 96.1 MCH 31.2 MCHC 32.4 RDW 14.1 Plt Count 203 Neut % (Auto) 78.7 H Lymph % (Auto) 8.3 L [place] % (Auto) 10.6 Eos % (Auto) 1.1 L Baso % (Auto) 1.3 Neut # (Auto) 24272 H Lymph # (Auto) 1100 [place] # (Auto) 1400 H Eos # (Auto) 200 Baso # (Auto) 200 H Sodium 139 Potassium 4.2 D Chloride 101 Carbon Dioxide 31 BUN 33 H Creatinine 1.62 H Estimated GFR 41 L BUN/Creatinine Ratio 20.4 Glucose 80 D Hemoglobin A1c 13.0 H Lactate Calcium 9.0 Magnesium Total Bilirubin 0.7 AST 35 ALT 37 Alkaline Phosphatase 88 Total Creatine Kinase Troponin I NT-Pro-B Natriuret Pep 2100 H Total Protein 6.4 Albumin 3.4 L Globulin 3.0 Albumin/Globulin Ratio 1.1 Lipase SARS-CoV-2 (PCR) Influenza A (RT-PCR) Influenza B (RT-PCR) RSV (PCR) [facility] Medical History (Updated 12/10/24 @ 15:20 by Flo Cabrera DO) Atrial fibrillation Myocardial infarction Ischemic cardiomyopathy Hyperlipidemia Hypertension Obesity Primary insomnia Snoring Type 2 diabetes mellitus Obstructive sleep apnea of adult Surgical History S/P implantation of automatic cardioverter/defibrillator (AICD) History of cholecystectomy History of ERCP History of partial knee replacement History of left knee replacement History of resection of pancreas History of splenectomy History of hernia repair Family History Father No problems noted. Mother Leukemia Social History household members: spouse Smoking Status: Former smoker alcohol intake: former Assessment & Plan Assessment & Plan narrative: #type 1 diabetes with hyperglycemia #lactic acidosis Sugars have dropped this morning more or less normalized continue Q 2 sugar checks resume home 60 of Lantus which he states he takes twice a day with 15 short-acting pre meal and sliding scale okay to stop IVF A1c 13 consistent with general uncontrolled sugars he does not see endocrine as an outpatient he does not have an insulin pump these might need fixed on discharge #hyperkalemia Improved after insulin and fluids, monitor #hypertension a/w diabetes stable BP vitals ok continue home regimen with prn hydralazine #hyperlipidemia stable continue home meds #BPH continue home meds -I suspect nocturia secondary to hyperglycemia PSA pending #elevated BNP #acute on chronic diastolic and systolic heart failure elevated BNP somewhat improved this morning diuresed with lasix 40mg iv continue today track BNPs supplemental o2 as needed last echo over a year ago had systolic EF 35-40% we will repeat that he says cardiology had ordered 1 anyway #hx of COPD breathing ok, prn duonebs ordered #caregiver role strain 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 Quality VTE Deep Vein Thrombosis/Pulmonary Embolism Present on Admission: No
--- NOTE | 2024-12-11 09:32 | DI.ECHO.S_ITS ---
[facility] : : [address] : : [place] : : [id number] : : Phone: [phone] Echocardiogram Report + + :Name: FIOR RIOS Study Date: 12/11/2024 Height: 70 in : :Hospital ReadingLocation: Weight: 147 lb: : Gender: Male BSA: 1.8 m2 : :: 1940 Age: 84 yrs BP: 99/72 mmHg: :Reason For Study: DIASTOLIC CHF : :Ordering Physician: ROSARIO, : :MAC Stone Performed By: Gianni Brito : :Referring: MAC PONCE : + + Interpretation Summary Technically difficult study. 1) Mildly dilated left ventricle with moderately reduced systolic function (EF 35-40%). 2) Basal to mid inferolateral wall, basal anterolateral wall, and basal to mid inferior wall are akinetic. Distal inferior wall is hypokinetic. 3) Normal right ventricular size with mildly reduced function. There is a pacemaker lead in the right ventricle. 4) There is moderate mitral regurgitation. 5) There is a trivial pericardial effusion noted, best seen in subcostal iamges. 6) Compared to the Echo done 12/15/2023, no significant change. Procedure: A two-dimensional transthoracic echocardiogram with color flow and Doppler was performed. The study quality was technically adequate. Comparison is made with the echocardiogram of 12/15/2023. The patient has a paced rhythm. Left Ventricle: The left ventricle is mildly dilated. There is normal left ventricular wall thickness. There is no ventricular septal defect visualized. The ejection fraction is estimated to be 35-40%. Basal to mid inferolateral wall, basal anterolateral wall, and basal to mid inferior wall are akinetic. Distal inferior wall is hypokinetic. Apical wall motion abnormality may reflect pacemaker activation. Diastolic function could not be accurately assessed due to paced rhythm. Right Ventricle: There is a pacemaker lead in the right ventricle. The right ventricle is normal size. Right ventricular systolic function is mildly reduced. Atria: There is moderate biatrial enlargement. There is a catheter/pacemaker lead seen in the right atrium. There is no Doppler evidence for an atrial septal defect. Mitral Valve: The mitral valve leaflets appear mildly thickened, but open well. The mitral valve leaflets are mildly calcified. There is mild mitral annular calcification. There is moderate mitral regurgitation. The mitral regurgitant jet is eccentrically directed. Aortic Valve: The aortic valve is trileaflet. The aortic valve is slightly calcified. The aortic valve opens well. No aortic regurgitation is present. Tricuspid Valve: The tricuspid valve leaflets are thin and pliable. There is trace tricuspid regurgitation. The right ventricular systolic pressure is estimated to be at least 25 mmHg based on an estimated right atrial pressure of 3 mm Hg. Pulmonic Valve: The pulmonic valve leaflets are thin and pliable; valve motion is normal. There is no pulmonic valvular regurgitation. Great Vessels: The aortic root is normal size. The ascending aorta could not be visualized. The pulmonary artery is normal size. The IVC is of normal diameter and collapses greater than 50% with a sniff. This suggests a low right atrial pressure of 3 mm Hg. Pericardium/ Pleura There is a trivial pericardial effusion noted. There is no pleural effusion. MMode/2D Measurements & Calculations LVIDd: 6.2 cm LVOT diam: 1.9 cm LVIDs: 5.1 cm Ao root diam: 3.1 cm FS: 17.8 % EPSS: 1.2 cm IVSd: 0.78 cm LVPWd: 0.79 cm LV nunez. diameter/BSA (cm/m^2): 3.4 LV sys. diameter/BSA (cm/m^2): 2.8 LA A2 area: 25.7 cm2 RA long axis: 5.9 cm LA A4 area: 28.1 cm2 RA area: 26.8 cm2 LA length (vol): 6.8 cm RA vol: 102.7 ml LA vol: 89.6 ml RA : 56.1 ml/m2 LA vol index: 48.9 ml/m2 IVC diam: 1.8 cm RVD1 (basal): 3.8 cm RVD2 (mid): 2.8 cm TAPSE: 1.8 cm Doppler Measurements & Calculations Ao V2 max: 117.6 cm/sec LVOT Max Joshua: 89.2 cm/sec Ao V2 mean: 88.5 cm/sec LV V1 max P.2 mmHg Ao max P.5 mmHg LV V1 VTI: 14.5 cm Ao mean P.4 mmHg (I,D): 2.0 cm2 Ao V2 VTI: 20.5 cm (V,D): 2.2 cm2 sev ratio: 0.71 indexed to BSA (cm^2/m^2): 1.1 MV E max joshua: 70.0 cm/sec TR max joshua: 235.4 cm/sec MV A max joshua: 23.9 cm/sec TR max P.2 mmHg MV E/A: 2.9 PA V2 max: 47.3 cm/sec Med Peak E' Joshua: 6.6 cm/sec PA V2 mean: 36.7 cm/sec E/E' med: 10.6 PA mean P.58 mmHg Lat Peak E' Joshua: 6.3 cm/sec PA pr(Accel): 44.7 mmHg E/E' lat: 11.1 E/e' average: 10.8 MV dec time: 0.21 sec MR ERO: 0.18 cm2 MR PISA: 2.3 cm2 SV(LVOT): 42.1 ml MR flow rate: 84.3 cm3/sec MR PISA radius: 0.60 cm Reading Physician:01:09 PM
[2024-12-11] MEDS: FUROSEMIDE 40 MG/4 ML VIAL IV (09:59)
--- NOTE | 2024-12-11 11:01 | PC.NURSE ---
Notified by ICU nurse that patient had approx. 9 beats of Vtach on telemetry. Patient was sleeping, VSS, groggy upon awakening, blood glucose checked and at 49. Juice given per protocol, patient able to sit up and drink it. Dr. Mendez notified, he states to continue to monitor, hold lispro premeal and tonights lantus. OK to give SSI only.
[2024-12-11] MEDS: DEXTROSE 50 % IN WATER 25 GM/50 ML SYRINGE IV (11:24)
--- NOTE | 2024-12-11 12:17 | PT-IP ANOTE ---
PT eval order received. EMR reviewed. Checked with nurse and stated that pt has low blood sugar of 49 and not appropriate for PT. will f/u.
--- NOTE | 2024-12-11 13:23 | PC.NURSE ---
Patient notified that our pharmacy doesn't carry his mexiletine or entresto as ordered, and that he can have someone bring it in for him and have pharmacy verify it for me. He states he would notify his son.
--- NOTE | 2024-12-11 13:50 | PT.IIE ---
Current Diagnoses Type 1 diabetes mellitus with hyperglycemia (12/10/24) Surgical History (Last Reviewed 05/02/24 @ 08:44 by Amparo Milan DO) History of cholecystectomy History of ERCP History of hernia repair History of left knee replacement History of partial knee replacement History of resection of pancreas History of splenectomy S/P implantation of automatic cardioverter/defibrillator (AICD) Medical History (Last Reviewed 05/02/24 @ 08:44 by Amparo Milan DO) Atrial fibrillation Hyperlipidemia Hypertension Ischemic cardiomyopathy Myocardial infarction Obesity Obstructive sleep apnea of adult Primary insomnia Snoring Type 2 diabetes mellitus Physical Therapy Inpatient Evaluation/Re-Eval M1 PT/OT-IP Prior Functional Status Start: 12/11/24 17:09 Freq: NEEDED Status: Active Protocol: Document 12/11/24 13:50 AB (Rec: 12/11/24 17:25 AB [id number]) Medical Review Prior Functional Status Medical History Reviewed Yes Communication able to make needs known Mobility and Gait pt stated that he was modified independent with all mobilities and ambulation switching between a 4WW and a SPC Social History Household Members spouse Living Arrangements House Number of Floors (Floors) One Floor Number of Stairs To Enter/Railing? ramp to enter Home Environment High Toilet,Walk in Shower, Ramp Home Equipment Four Wheel Walker,Straight Cane,Shower Seat with Backrest ,Hand Held Shower,Grab Bars Near Toilet,Grab Bars In Shower Additional Social History Comment pt stated that spouse will not be able to assist him M2 PT-IP Current Condition Start: 12/11/24 17:09 Freq: NEEDED Status: Active Protocol: Document 12/11/24 13:50 AB (Rec: 12/11/24 17:25 AB [id number]) Physical Therapy Current Condition Current Condition Evaluation Date 12/11/24 Treatment Diagnosis CHF; hyperglycemia; difficulty in walking Onset Date 12/10/24 M3 PT-IP Subjective Start: 12/11/24 17:09 Freq: NEEDED Status: Active Protocol: Document 12/11/24 13:50 AB (Rec: 12/11/24 17:25 AB [id number]) Subjective Physical Therapy Visit Type Type Initial Evaluation Visit Start Time 13:50 Visit Stop Time 14:25 Number of STOCK HANDLER FLOORPERSON Visits 0 Physical Therapy Visit Comments Patient Comments agreeable to do PT M4 PT-IP Mobility and Gait Start: 12/11/24 17:09 Freq: NEEDED Status: Active Protocol: Document 12/11/24 13:50 AB (Rec: 12/11/24 17:25 AB [id number]) PT-Bed Mobility Assessment Supine to Sit Supine to Sit Moderate Assistance,1 Person Assistance,Head of Bed Elevated,Bedrails PT-Transfer Assessment Sit to and From Stand Sit to and from Stand Moderate Assistance,1 Person Assistance,Use of Upper Extremities Equipment Transfer Assistive Device Gait Belt,Front Wheeled Walker Orthotic/Prosthetic Devices or Brace: No Transfers Transfer Destination Chair Transfer Technique ambulated Transfer Ability Level of Assist Moderate Assistance,1 Person Assistance,Use of Upper Extremities Comments Mobility Comments checked with nurse and stated that pt's blood sugar is better and can work with PT. pt in bed and agreeable to do PT. BP: 107/61. obtained PLOF and home set up. pt completed supine to sit mod A and cues. HOB elevated. (+) SOB. pt is a mouth breather. O2 sat: 96-97% with 2 L/min O2. cued for slow deep breaths. completed sit to stand mod A and ambulated in room using FWW ~ 10 ft using FWW mod A and cues. presents with unsteady gait and low activity tolerance needing to sit on the chair. positioned pt on the chair. O2 sat: 90-93%. call light and table placed within reach. Gait Assessment Gait Gait Assistance Required: Moderate Assistance,1 Person Assist Distance (Feet) 10 Able to Maintain Weight Bearing Status Yes During Gait Assistive Devices Assistive Device Gait Belt,Front Wheeled Walker Orthotic/Prosthetic Devices or Brace: No Gait Deviations General Gait Pattern Decreased Stride Length, Decreased Feet Clearance Factors Limiting Gait Function Factors Limiting Gait Function Decreased Activity Tolerance, Decreased Strength,Limited Range of Motion,Poor Balance, Poor Safety Awareness, Respiratory Distress PT-Balance Assessment Sitting Balance and Reactions Static Sitting Balance Ability Good Dynamic Sitting Balance Ability Good Standing Balance and Reactions Static Standing Balance Ability Fair Dynamic Standing Balance Ability Poor Device Used FWW M5 PT-IP Objective Assessments Start: 12/11/24 17:09 Freq: NEEDED Status: Active Protocol: Document 12/11/24 13:50 AB (Rec: 12/11/24 17:25 AB [id number]) Orientation Orientation/Cognition Level of Alertness Alert Orientation Name,Place,Situation Language Function Ability Hard of Hearing Safety Awareness Decreased Safety Awareness Memory Description No Deficits Noted Strength Lower Extremity Strength Hip 4-/5 Knee 4-/5 Muscle Tone Muscle Tone WNL Yes M6 PT-IP Treatment Start: 12/11/24 17:09 Freq: NEEDED Status: Active Protocol: Document 12/11/24 13:50 AB (Rec: 12/11/24 17:25 AB [id number]) Physical Therapy Treatment Education Education Provided Safety M7 PT-IP Assessment and Plan Start: 12/11/24 17:09 Freq: NEEDED Status: Active Protocol: Document 12/11/24 13:50 AB (Rec: 12/11/24 17:25 AB [id number]) PT Summary Assessment and Plan Potential Rehabilitation Potential Fair Status of Condition at Evaluation Evolving Summary Impairments Pain,ROM,Strength,Balance, Coordination,Sensation,Tone, Cognition,Bed Mobility, Transfers,Gait,Activity Tolerance Assessment Summary pt is an 84 y/o M admitted for CHF, hyperglycemia and hyperkalemia. pt needing use of O2 at this time. pt requiring mod A with mobilities using FWW and will require 24/7 assist. pt lives with spouse, but spouse will not be able to assist pt. pt will benefit from SNF rehab. Goals Bed Mobility Goal Independent Transfer Goal Independent,Front Wheeled Walker Gait Goal Independent,Front Wheel Walker Gait Distance 100 Other Goals improve transfers, ambulation using 4WW 150 ft mod I Days to Meet Goals 10 Frequency of Treatment Frequency Of Treatment Once a Day Treatment Plan Physical Therapy Treatment Plan Bed Mobility Training,Transfer Training,Gait Training, Therapeutic Exercise,Balance Retraining,Discharge Planning, Hot or Cold Pack,Neuromuscular Re-ed,Coordination Retraining Precautions Other Precautions falls, O2 sat Recommendations To Nursing Amount of Assist Needed 1 Person Assist Discharge Recommendations PT Discharge Recommendations SNF Rehab Transportation Needs at Discharge Wheelchair/Cabulance
[2024-12-11] MEDS: DIGOXIN 0.125 MG TABLET PO (17:02)
[2024-12-11] MEDS: ASPIRIN EC 81 MG TABLET PO (17:02)
[2024-12-11] MEDS: Sacubitril-Valsartan [Entresto] 24-26 mg tablet 1 EACH PO (20:17)
[2024-12-11] MEDS: Mexiletine 150 mg capsule 150 EACH PO (20:17)
[2024-12-11] MEDS: SODIUM CHLORIDE 0.9% FLUSH 10 ML IV (20:17)
[2024-12-11] MEDS: ATORVASTATIN 20 MG TABLET PO (20:17)
[2024-12-12] VITALS (10 sets, daily range): BP systolic 99–109; BP diastolic 54–65; PULSE 81–88; RESP 16–24; TEMP 36.2–36.6; O2SAT 93–96
[2024-12-12] MEDS: DEXTROSE 50 % IN WATER 25 GM/50 ML SYRINGE IV (02:09)
--- NOTE | 2024-12-12 02:09 | PC.NURSE ---
nightshift Pt Q2Hr BG check just registered 50, RN woke pt up, Pt was groggy and unable to follow directions, RN administered 50% dextrose Inj (EMAR) and then also gave 2 orange juices to drink at Pt will.
[2024-12-12 06:54] LABS: Add Manual Diff / Slide Review NO; Basophils Absolute Auto 100 /uL (0-100); Basophils Percent Auto 0.6 % (0-2); Eosinophils Absolute Auto 100 /uL (0-450); Eosinophils Percent Auto 0.8 % (2-4); Hematocrit 45.2 % (41-53); Lymphocytes Absolute Auto 2700 /uL (1100-4500); Lymphocytes Percent Auto 20.6 % (25-40); Mean Corpuscular HGB Conc 33.2 % (30-36); Mean Corpuscular Hemoglobin 31.8 PG (26-34); Mean Corpuscular Volume 95.8 fL (80-100); Monocytes Absolute Auto 1800 /uL (0-900); Monocytes Percent Auto 13.5 % (3-14); Neutrophils Absolute Auto 8600 /uL (1500-7000); Neutrophils Percent Auto 64.5 % (50-75); Platelet Count 197 X10^3/uL (150-400); Red Blood Cell Count 4.72 X10^6/uL (4.5-5.9); Red Cell Distribution Width 14.2 % (11.6-14.8); White Blood Cell Count 13.3 X10^3/uL (4.5-11.0)
[2024-12-12 07:06] LABS: Alanine Aminotransferase 26 IU/L (<50); Albumin 3.3 g/dL (3.5-5.0); Albumin Globulin Ratio 1.1 (1.0-2.8); Alkaline Phosphatase 78 U/L (38-126); Aspartate Aminotransferase 29 IU/L (17-59); BUN Creatinine Ratio 22.5 (6-22); Bilirubin Total 1.1 mg/dL (0.2-1.3); Blood Urea Nitrogen 32 mg/dL (9-20); Carbon Dioxide 33 mmol/L (22-32); Chloride 98 mmol/L (98-107); Estimated Glomerular Filt Rate 48 mL/min (>60); Globulin 3.1 g/dL (1.7-4.1); HEMOLYSIS < 15 (0-50); Potassium 4.4 mmol/L (3.4-5.1); Sodium 135 mmol/L (137-145); Total Protein 6.4 g/dL (6.3-8.2)
[2024-12-12 07:09] LABS: Glucose 35 mg/dL (80-110)
[2024-12-12 08:07] LABS: PSA Ultrasensitive 0.048 ng/mL (0.000-4.000)
[2024-12-12] MEDS: METOPROLOL ER 25 MG TABLET 75 MG PO ×2 (08:46→22:14)
[2024-12-12] MEDS: TAMSULOSIN 0.4 MG CAPSULE 0.8 MG PO (08:48)
[2024-12-12] MEDS: FINASTERIDE 5 MG TABLET PO (08:48)
[2024-12-12] MEDS: Sacubitril-Valsartan [Entresto] 24-26 mg tablet 1 EACH PO ×2 (08:49→22:14)
[2024-12-12] MEDS: PANTOPRAZOLE DR 40 MG TABLET PO (08:49)
[2024-12-12] MEDS: Mexiletine 150 mg capsule 150 EACH PO ×2 (08:49→22:14)
[2024-12-12] MEDS: APIXABAN 5 MG TABLET 2.5 MG PO ×2 (08:49→22:15)
[2024-12-12] MEDS: SODIUM CHLORIDE 0.9% FLUSH 10 ML IV ×2 (08:50→22:15)
--- NOTE | 2024-12-12 10:03 | P.PN_ITS ---
Subjective Subjective Interval history: Chief complaint hyperglycemia Patient able to discontinue supplemental oxygen yesterday after diuresis he is breathing a little bit better but still has quite a wet productive cough. We cautiously resumed long-acting insulin yesterday however he had several lows including 249 this morning on consultation with pharmacy we will stop long- acting and just to short-acting with meals try to find a happy medium and involve diabetic educators and industrial sociologist. He reports feeling weak this morning. No bowel movement but passing flatus, he did eat breakfast. Exam Vital Signs (past 8 hours): - 12/12/24 03:00 12/12/24 08:00 12/12/24 08:46 Temperature 97.7 F 97.2 F L Pulse Rate 85 86 81 Respiratory Rate 20 18 Blood Pressure 100/62 101/54 L 101/54 L Pulse Oximetry 95 96 Oxygen Flow Rate 0 0 Fraction of Inspired Oxygen 32 SaO2/FiO2 Ratio 309 Oxygen Delivery Method Nasal Cannula Oxygen Flow Rate 0 Narrative Exam Narrative: Laying in bed looking tired but alert Resp Other: Scant bibasilar crackles with wet upper airways productive cough moving air well without nasal cannula at 97% on room air Cardio Other: Regular rate S1-S2 minimal pedal edema GI Other: Soft nontender active bowel sounds Neuro Other: Alert awake oriented moving all limbs Objective Labs 12/12/24 06:46 12/12/24 06:46 Labs: Laboratory Results - last 24 hr 12/11/24 12/12/24 00:27 06:46 WBC 13.3 H RBC 4.72 Hgb 15.0 Hct 45.2 MCV 95.8 MCH 31.8 MCHC 33.2 RDW 14.2 Plt Count 197 Neut % (Auto) 64.5 Lymph % (Auto) 20.6 L Gove % (Auto) 13.5 Eos % (Auto) 0.8 L Baso % (Auto) 0.6 Neut # (Auto) 8600 H Lymph # (Auto) 2700 Gove # (Auto) 1800 H Eos # (Auto) 100 Baso # (Auto) 100 Sodium 135 L Potassium 4.4 Chloride 98 Carbon Dioxide 33 H BUN 32 H Creatinine 1.42 H Estimated GFR 48 L BUN/Creatinine Ratio 22.5 H Glucose 35 L* Calcium 9.0 Total Bilirubin 1.1 AST 29 ALT 26 Alkaline Phosphatase 78 Total Protein 6.4 Albumin 3.3 L Globulin 3.1 Albumin/Globulin Ratio 1.1 PSA Ultra-Sensitive 0.048 [facility] Medical History (Updated 12/10/24 @ 15:20 by Flo Cabrera DO) Atrial fibrillation Myocardial infarction Ischemic cardiomyopathy Hyperlipidemia Hypertension Obesity Primary insomnia Snoring Type 2 diabetes mellitus Obstructive sleep apnea of adult Surgical History S/P implantation of automatic cardioverter/defibrillator (AICD) History of cholecystectomy History of ERCP History of partial knee replacement History of left knee replacement History of resection of pancreas History of splenectomy History of hernia repair Family History Father No problems noted. Mother Leukemia Social History household members: spouse Smoking Status: Former smoker alcohol intake: former Assessment & Plan Assessment & Plan narrative: #type 1 diabetes with hyperglycemia #lactic acidosis Stop long-acting today due to hypoglycemia involving pharmacy and college or university faculty member and industrial sociologist still trying to find safe discharge dosing confirm A1c 13 consistent with general uncontrolled sugars of late he does not see endocrine as an outpatient he does not have an insulin pump these might need fixed on discharge #hyperkalemia Improved after insulin and fluids, monitor #hypertension a/w diabetes stable BP vitals ok continue home regimen with prn hydralazine #hyperlipidemia stable continue home meds #BPH continue home meds -I suspected nocturia q1hr at presentation secondary to hyperglycemia PSA turned out to be less than 1. When hyperglycemia was resolved he said ?I got the best night of sleep in a while.? #elevated BNP #acute on chronic diastolic and systolic heart failure BNP tracking down with ability to stop supplemental oxygen at 97% on room air after diuresis with Lasix 40 bags for a couple of days diuresed with lasix 40mg iv continue 20 mg today track BNPs supplemental o2 as needed last echo over a year ago had systolic EF 35-40% repeat echo yesterday essentially unchanged #hx of COPD prn duonebs ordered cough does seem a bit worse will check a CXR #caregiver role strain he is primary caregiver for his Irish who requires constant care which complicates discharge plan they live alone but have family support in the area Family is inquiring about local respite care options Dispo: admit for diuresis and glucose management diet: carb controlled MDM: daughter Matthias Verma [phone] or [phone] - daughter in law [place] [phone] Code: DNR Time-Based Coding :: [TOTAL MINUTES] spent with patient and on the chart (including review of chart, obtaining history, exam, reviewing outside data, placing orders, documenting exam and treatment plan, and counseling patient) on [DATE]. Quality VTE Deep Vein Thrombosis/Pulmonary Embolism Present on Admission: No
--- NOTE | 2024-12-12 10:11 | DI.RAD.S_ITS ---
PROCEDURE: XR CHEST 1V INDICATIONS: increasing cough TECHNIQUE: One view of the chest was acquired. COMPARISON: [facility], CR, XR CHEST 1V, 12/10/2024, 13:23. FINDINGS: Surgical changes and devices: Biventricular pacemaker in good position. Lungs and pleura: Lungs are clear. No pleural effusions or pneumothorax. Mediastinum: Heart size is enlarged. No vascular congestion. Atherosclerotic vascular calcification noted in the aortic arch. Bones and chest wall: No suspicious bony lesions. Overlying soft tissues appear unremarkable. IMPRESSION: Cardiomegaly without acute cardiopulmonary findings Approved by: Emory Ford M.D. on 12/12/2024 at 10:16
[2024-12-12] MEDS: FUROSEMIDE 20 MG/2 ML VIAL IV (10:44)
--- NOTE | 2024-12-12 11:10 | PT-IP ANOTE ---
Attempted to see pt. but pt refuses PT this date stating he doesn't have any energy to participate and is feeling really crappy. Encouraged pt to perform some LE movement/exercises in bed throughout the day.
--- NOTE | 2024-12-12 14:47 | CM.DANOTE ---
Initial DCP Assessment Note Pt is a 84 yo male, resident of [place], presented 12/10 with lethargy, hyperglycemia, admitted for for diuresis and glucose management. PCP: Dr Reyes Payer:[facility] Reviewed chart, therapies recommending SNF. Met w/patient, his and son Mervin ([place]). Patient tired although appear a+Ox4 today; according to our conversation: Patient and sp live together in [place]. Sp has memory deficit. Daughter Deon Verma (P [phone] home P [phone] cell) works time buyer at [employer] as a feed preparation operator and cares for hre parents. Both patient and sp need assist with errands, groceries and meal prep, chores around their home, med management, and some higher level ADLs. Son Mervin explains assist of his parents falls on his sister because she lives here and Mervin lives in [place]. Discussed short term planning ie SNF and patient/family agreeable to initial SNF referral to [facility] Also discussed retirement care planning and strongly encouraged son to be discussing this plan with his sister and with his parents; son agrees it is time. Referral sent to [facility] via email to [facility] in admissions. PASRR completed in anticipation of SNF at [place]. CM team will plan to follow clinical course closely. Coordinate with patient,family, provider and [facility]. TEMO Junior Discharge Planning/Care Management CM Discharge Assessment Start: 12/12/24 14:32 Freq: Status: Active Protocol: Document 12/12/24 14:32 SAMARA (Rec: 12/12/24 14:47 SAMARA [id number]) Discharge Planning Assessment Assigned Executive Coordinator TEMO Bedolla DPOA/Assigned Designee Name Deon Verma, daughter ( Betty) Contact Information [phone] Advance Directives? Yes Advance Directives on File No History Provided By Patient,Family Member,Medical Record Prior Living Arrangements House Household Members spouse Type of transporation used prior to Relies on Others admit Independent with ADL's No Is patient alert and oriented? Yes Needs Assistance With Grooming,Meal Prep,Managing Medications,Home Chores / Shopping Patient/Family Preference [facility] Facility Barriers to Discharge No Comment Likely will discharge to SNF if remains agreeable. Discharge Plan [facility] Facility Transportation Arrangement likely w/c transport Referrals Initiated [facility] Additional Comment [facility] If patient plan is SNF: Has PASSR been Yes: Needs provider signature completed? Whiteboard Updated in Patient Room with Yes name and ext. # of Executive Coordinator
[2024-12-12] MEDS: INSULIN LISPRO 100 UNIT/ML 3ML VIAL SUBCUT (16:47)
[2024-12-12] MEDS: ASPIRIN EC 81 MG TABLET PO (16:47)
--- NOTE | 2024-12-12 17:44 | PC.NURSE ---
Day shift note: Patient alert, and oriented x 4. Pleasantly cooperative, up OOB to chair for meals. Excellent appetite. Intermittent congested cough noted, afebrile. IS at bedside, teaching performed and encouraged. Voiding > 875ml this shift. BG check Q2 hours. No hypoglycemic events. Spouse at bedside this afternoon, providing supportive care. Fall risk precautions maintained, calls appropriately for staff assist.
[2024-12-12] MEDS: ATORVASTATIN 20 MG TABLET PO (22:15)
[2024-12-13] VITALS (11 sets, daily range): BP systolic 90–124; BP diastolic 55–80; PULSE 60–90; RESP 17–24; TEMP 35.8–37; O2SAT 87–98
[2024-12-13 05:04] LABS: Add Manual Diff / Slide Review NO; Basophils Absolute Auto 100 /uL (0-100); Basophils Percent Auto 0.6 % (0-2); Eosinophils Absolute Auto 200 /uL (0-450); Hematocrit 44.5 % (41-53); Hemoglobin 14.7 g/dL (13.5-17.5); Lymphocytes Absolute Auto 2400 /uL (1100-4500); Lymphocytes Percent Auto 20.7 % (25-40); Mean Corpuscular HGB Conc 33.1 % (30-36); Mean Corpuscular Hemoglobin 31.9 PG (26-34); Mean Corpuscular Volume 96.4 fL (80-100); Monocytes Absolute Auto 1700 /uL (0-900); Monocytes Percent Auto 14.4 % (3-14); Neutrophils Absolute Auto 7100 /uL (1500-7000); Neutrophils Percent Auto 62.3 % (50-75); Platelet Count 178 X10^3/uL (150-400); Red Blood Cell Count 4.61 X10^6/uL (4.5-5.9); Red Cell Distribution Width 14.4 % (11.6-14.8); White Blood Cell Count 11.4 X10^3/uL (4.5-11.0)
[2024-12-13 05:13] LABS: Alanine Aminotransferase 24 IU/L (<50); Albumin 3.1 g/dL (3.5-5.0); Albumin Globulin Ratio 1.1 (1.0-2.8); Alkaline Phosphatase 81 U/L (38-126); Aspartate Aminotransferase 27 IU/L (17-59); BUN Creatinine Ratio 27.6 (6-22); Bilirubin Total 0.5 mg/dL (0.2-1.3); Blood Urea Nitrogen 35 mg/dL (9-20); Calcium 8.7 mg/dL (8.4-10.2); Carbon Dioxide 28 mmol/L (22-32); Chloride 98 mmol/L (98-107); Estimated Glomerular Filt Rate 55 mL/min (>60); Globulin 2.9 g/dL (1.7-4.1); Glucose 221 mg/dL (80-110); HEMOLYSIS < 15 (0-50); Potassium 4.3 mmol/L (3.4-5.1); Sodium 131 mmol/L (137-145)
--- NOTE | 2024-12-13 08:59 | OT.IP.EVAL ---
Current Diagnoses Type 1 diabetes mellitus with hyperglycemia (12/10/24) Past Medical History (Last Reviewed 05/02/24 @ 08:44 by Amparo Milan DO) Atrial fibrillation Hyperlipidemia Hypertension Ischemic cardiomyopathy Myocardial infarction Obesity Obstructive sleep apnea of adult Primary insomnia Snoring Type 2 diabetes mellitus Surgical History (Last Reviewed 05/02/24 @ 08:44 by Amparo Milan DO) History of cholecystectomy History of ERCP History of hernia repair History of left knee replacement History of partial knee replacement History of resection of pancreas History of splenectomy S/P implantation of automatic cardioverter/defibrillator (AICD) Occupational Therapy Inpatient Evaluation/Re-Eval M1 PT/OT-IP Prior Functional Status Start: 12/11/24 17:09 Freq: NEEDED Status: Active Protocol: Document 12/13/24 14:35 CGR (Rec: 12/13/24 14:49 CGR [id number]) Medical Review Prior Functional Status Medical History Reviewed Yes Communication able to make needs known Mobility and Gait pt stated that he was modified independent with all mobilities and ambulation switching between a 4WW and a SPC Activities of Daily Living and IADL's Pt staes he is IND with ADLs but his daughter does errands, grocery shopping, meal prep, chores and medication management. Social History Household Members spouse Living Arrangements House Number of Floors (Floors) One Floor Number of Stairs To Enter/Railing? ramp Home Environment High Toilet,Walk in Shower, Ramp Home Equipment Four Wheel Walker,Straight Cane,Shower Seat with Backrest ,Hand Held Shower,Grab Bars Near Toilet,Grab Bars In Shower Employment Status Retired Additional Social History Comment pt stated that spouse will not be able to assist him M2 OT-IP Current Condition Start: 12/13/24 14:35 Freq: Status: Active Protocol: Document 12/13/24 14:35 CGR (Rec: 12/13/24 14:49 CGR [id number]) Occupational Therapy Current Condition Current Condition Evaluation Date 12/13/24 Treatment Diagnosis lethargy, SOB, hyper glycemia Diagnosis Onset Date 12/10/24 M3 OT- IP Subjective and Pain Start: 12/13/24 14:35 Freq: Status: Active Protocol: Document 12/13/24 14:35 CGR (Rec: 12/13/24 14:49 CGR [id number]) OT- Subjective Occupational Therapy Visit Type Type Initial Evaluation Visit Start Time 08:39 Visit Stop Time 08:59 Notes Pt agreeable to getting up to chair for the rest of his breakfast. Session limited d/t pt wanting to get back to his breakfast. OT Pain Assessment Pain When Pain Assessed At Rest Pain Present Pain Present Denied Pain M4 OT- IP ADL's Start: 12/13/24 14:35 Freq: Status: Active Protocol: Document 12/13/24 14:35 CGR (Rec: 12/13/24 14:49 CGR [id number]) OT DHC-Wtrr-[place] General Evaluation Self-Feeding Ability Independent Comments OT Self-Feeding Comments seated in chair OT ADL-Grooming Comments OT Grooming Comments not peformed OT ADL-Oral Care Comments Oral Care Comments not performed OT ADL-Dressing General Eval Lower Body Dressing Ability Standby Assistance Areas Needing Assistance Socks Comments OT Dressing Comments seated in chair, pt doffed and then donned socks OT ADL-Toileting Comments OT Toileting Comments not performed OT ADL-Bathing Comments OT Bathing Comments not performed M5 OT- IP IADL's Start: 12/13/24 14:35 Freq: Status: Active Protocol: Document 12/13/24 14:35 CGR (Rec: 12/13/24 14:49 CGR [id number]) OT-Instrumental Activities of Daily Living Deficits IADL Deficits Identified Deficits Home Safety Awareness Awareness of Need for Assistance at Home Decreased Awareness Medication Management Medication Management Caregiver Administers Money Management Money Management Caregiver Provides Assistance Meal Preparation Meal Preparation Caregiver Provides Assist Pumper Brewery Pumper Brewery Caregiver Provides Assist Driving Driving Comments Unsure if pt drives M6 OT- IP Functional Cognition Start: 12/13/24 14:35 Freq: Status: Active Protocol: Document 12/13/24 14:35 CGR (Rec: 12/13/24 14:49 CGR [id number]) Cognitive Factors Limiting Selfcare Function Cognitive Ability Level of Alertness Alert Patient Orientation Name,Age,Birthday,Month,Year, Day of Week,Place,Situation Attention Span Ability Capable of Focused Attention, Capable of Sustained Attention OT- Vision and Hearing OT- Hearing Assessment OT- Hearing Assessment Hearing Impaired OT- Vision Assessment Visual Acuity Glasses All The Time Visual Attentiveness WFL Occular Pursuits WFL M7 OT- IP Mobility and Balance Start: 12/13/24 14:35 Freq: Status: Active Protocol: Document 12/13/24 14:35 CGR (Rec: 12/13/24 14:49 CGR [id number]) OT- Bed Mobility Assessment Supine to Sit Supine to Sit Assist Standby Assistance Scooting Scooting to Edge of Bed Standby Assistance OT-Transfer Assessment Sit to and From Stand Sit to and from Stand Contact Guard Assistance Transfers Transfer Ability Minimal Assistance Technique Transfer Destination Bed,Chair Transfer Technique Stand Step Pivot Devices Transfer Assistive Devices Gait Belt,Front Wheeled Walker Comments Mobility Comments Pt stood from bed and needed min a for use of walker and safety. Pt with poor safety awareness with transfers. OT- Balance Assessment Sitting Balance and Reactions Static Sitting Balance Ability Good Dynamic Sitting Balance Ability Good M8 OT- IP Objective Assessments Start: 12/13/24 14:35 Freq: Status: Active Protocol: Document 12/13/24 14:35 CGR (Rec: 12/13/24 14:49 CGR [id number]) OT Gross Range of Motion Upper Extremity Range of Motion Assessment Within Functional Limits OT Strength Upper Extremity Strength Assessment Within Functional Limits Comments Strength Comments 4/5 OT- Coordination Assessment Upper Extremity Finger to Nose Test Within Functional Limits Finger Tapping Test Within Functional Limits OT-Muscle Tone Assessment Muscle Tone WNL Yes OT Sensation Assessment Edema Edema Absent M9 OT- IP Assessment and Plan Start: 12/13/24 14:35 Freq: Status: Active Protocol: Document 12/13/24 14:35 CGR (Rec: 12/13/24 14:49 CGR [id number]) OT Summary Assessment and Plan Potential Rehabilitation Potential Good Analytic Complexity at Evaluation Moderate Summary OT Impairments Balance,Functional Cognition, Functional Mobility,Grooming, Dressing,Toileting,Bathing, Toilet Transfers,Shower Transfers,Activity Tolerance Progress Towards Goals Progressing Toward Goals,Slow Progress due to Activity Tolerance,Slow Progress due to Cognition Assessment Summary Pt presents as a moderate complexity evaluation s/p admit for lethargy, hyperglycemia and SOB. Pt needed min a for mobility today and hs poor safety awareness. Pt has help from daughter at home but she works a installation coordinator job and is not home throughout the day. Pt would benefit from SNF upon discharge. Goals Self-Feeding Goal Independent Grooming Goal Independent Dressing Goal Independent Toileting Goal Independent Bathing Goal Independent Toilet Transfer Goal Independent Shower Transfer Goal Independent Days to Meet Goals 10 Frequency of Treatment Other frequency 5x per week Treatment Plan OT Treatment Plan ADL Training,Functional Cognition Training,Functional Mobility,Patient/Family Education,Discharge Planning Other Treatment Recommendations and Next ADLs standing, shower Treatment Focus Discharge Recommendations OT Discharge Recommendations SNF Rehab Transportation Needs at Discharge Private Vehicle
[2024-12-13] MEDS: TAMSULOSIN 0.4 MG CAPSULE 0.8 MG PO (10:03)
[2024-12-13] MEDS: PANTOPRAZOLE DR 40 MG TABLET PO (10:03)
[2024-12-13] MEDS: SODIUM CHLORIDE 0.9% FLUSH 10 ML IV ×2 (10:04→20:41)
[2024-12-13] MEDS: APIXABAN 5 MG TABLET 2.5 MG PO ×2 (10:07→20:41)
[2024-12-13] MEDS: FINASTERIDE 5 MG TABLET PO (10:08)
[2024-12-13] MEDS: Sacubitril-Valsartan [Entresto] 24-26 mg tablet 1 EACH PO ×2 (10:08→20:40)
[2024-12-13] MEDS: Mexiletine 150 mg capsule 150 EACH PO ×2 (12:06→20:40)
[2024-12-13] MEDS: INSULIN LISPRO 100 UNIT/ML 3ML VIAL SUBCUT ×2 (12:08→17:25)
--- NOTE | 2024-12-13 12:17 | PT.IPTN ---
Current Diagnoses Type 1 diabetes mellitus with hyperglycemia (12/10/24) Physical Therapy Treatment Note M2 PT-IP Current Condition Start: 12/11/24 17:09 Freq: NEEDED Status: Active Protocol: Document 12/11/24 13:50 AB (Rec: 12/11/24 17:25 AB [id number]) Physical Therapy Current Condition Current Condition Evaluation Date 12/11/24 Treatment Diagnosis CHF; hyperglycemia; difficulty in walking Onset Date 12/10/24 M3 PT-IP Subjective Start: 12/11/24 17:09 Freq: NEEDED Status: Active Protocol: Document 12/13/24 12:11 [facility] (Rec: 12/13/24 12:16 [facility] [id number]) Subjective Physical Therapy Visit Type Type Treatment Note Visit Start Time 11:37 Visit Stop Time 12:07 Number of ER RN Visits 0 Physical Therapy Visit Comments Patient Comments Pt agreeable to do PT M4 PT-IP Mobility and Gait Start: 12/11/24 17:09 Freq: NEEDED Status: Active Protocol: Document 12/13/24 12:11 [facility] (Rec: 12/13/24 12:16 [facility] [id number]) PT-Transfer Assessment Sit to and From Stand Sit to and from Stand Contact Guard Assistance,Use of Upper Extremities Equipment Transfer Assistive Device Gait Belt,Front Wheeled Walker Orthotic/Prosthetic Devices or Brace: No Comments Mobility Comments Pt seated in chair upon PT arrival w/DGt in law present. Sit ot stand CGA then pt asks if he can go in hallway. Pt sat again and then stood again CGA and tied pants w/CGA w/ slight unsteadiness. Pt amb with FWW and CGA 200ft with 2 L O2. [facility]61 and O2 94%. difficult to get reading w/pulse ox during amb and when returned back read 84% but RN did not think was reading well and tried ear pulse ox and got readings of 96% to 100%. Pt denies being SOB. After exercises, pt left w/call light in reachand chair alarm on Gait Assessment Gait Gait Assistance Required: Contact Guard Assist,1 Person Assist Distance (Feet) 200 Able to Maintain Weight Bearing Status Yes During Gait Assistive Devices Assistive Device Gait Belt,Front Wheeled Walker Orthotic/Prosthetic Devices or Brace: No Factors Limiting Gait Function Factors Limiting Gait Function Decreased Activity Tolerance, Decreased Strength,Limited Range of Motion,Poor Balance, Poor Safety Awareness, Respiratory Distress PT-Balance Assessment Sitting Balance and Reactions Static Sitting Balance Ability Good Dynamic Sitting Balance Ability Good Standing Balance and Reactions Static Standing Balance Ability Fair Dynamic Standing Balance Ability Fair Device Used FWW M5 PT-IP Objective Assessments Start: 12/11/24 17:09 Freq: NEEDED Status: Active Protocol: Document 12/11/24 13:50 AB (Rec: 12/11/24 17:25 AB [id number]) Orientation Orientation/Cognition Level of Alertness Alert Orientation Name,Place,Situation Language Function Ability Hard of Hearing Safety Awareness Decreased Safety Awareness Memory Description No Deficits Noted Strength Lower Extremity Strength Hip 4-/5 Knee 4-/5 Muscle Tone Muscle Tone WNL Yes M6 PT-IP Treatment Start: 12/11/24 17:09 Freq: NEEDED Status: Active Protocol: Document 12/13/24 12:11 [facility] (Rec: 12/13/24 12:16 [facility] [id number]) Physical Therapy Treatment Exercises Exercises Ankle Pumps,Gluteal Sets, Seated Knee Flexion/Extension Other Treatments Other Treatment Performed seated marches and ER x15 B ea exercise M7 PT-IP Assessment and Plan Start: 12/11/24 17:09 Freq: NEEDED Status: Active Protocol: Document 12/13/24 12:11 [facility] (Rec: 12/13/24 12:16 [facility] [id number]) PT Summary Assessment and Plan Summary Impairments Pain,ROM,Strength,Balance, Coordination,Sensation,Tone, Cognition,Bed Mobility, Transfers,Gait,Activity Tolerance Assessment Summary Pt is demonstraing much improved mobility today. Difficult to determine O2 levels d/t poor reading of pulse oximeter. he is motivated to improve but does still show dec balance and mobility. Goals Bed Mobility Goal Independent Transfer Goal Independent,Front Wheeled Walker Gait Goal Independent,Front Wheel Walker Gait Distance 100 Other Goals improve transfers, ambulation using 4WW 150 ft mod I Days to Meet Goals 10 Frequency of Treatment Frequency Of Treatment Once a Day Treatment Plan Physical Therapy Treatment Plan Bed Mobility Training,Transfer Training,Gait Training, Therapeutic Exercise,Balance Retraining,Discharge Planning, Hot or Cold Pack,Neuromuscular Re-ed,Coordination Retraining Precautions Other Precautions falls, O2 sat Recommendations To Nursing Amount of Assist Needed Standby Assistance Discharge Recommendations PT Discharge Recommendations SNF Rehab Transportation Needs at Discharge Wheelchair/Cabulance
--- NOTE | 2024-12-13 12:26 | DIET.CONS ---
Dietary Consultation Note Admission Date: 12/10/2024 15:46 Assessment: 84 y M admitted for t1DM with hyperglycemia (BG 597). RD consulted for A1c 13%. Met with pt and daughter in law at bedside. Reports UBW 170 lb now 147 lb. Gradual weight loss since 2022 hospitalization (weight in 2021 210-217 lb, 2022 weight was 176 lb), with around 20 lb within last 6 months. Per daughter in law- PCP plans to adjust lantus routine to half dose BID. Will f/u with endo. Pt considering insulin pump/meeting with DM educator, but some barriers include consistent method for transportation to appointments while learning how manage pump. Has CGMs at home, consistent supply and consistently wears. Diet recall: B-li, sausage, hashbrown in air fryer D-homecooked meal, various Pt denies changes to amount of food he has been eating in last few months. Ht: 177.8 cm Wt: 67 kg BMI: 21.2 UBW: 95-98 kg in 2021, 80 kg in 2022, 77.11 kg in 07/17/24 (-13% within 6 months, severe) Last BM: 12/12/24 (12/12/24 10:02) MNA: 13 Bob Score: 19 Diet: 12/10/24 Dinner Carbohydrate Consistent Diet Diet Modifications: Carbohydrate level: Small (2 CHO) Reflex DM orders: No Nutrition Percent Meal Consumed 75% 12/12/24 18:00 Percent Meal Consumed 50% 12/11/24 18:00 Percent Meal Consumed 5 12/11/24 13:22 Labs: RBC 4.61 X10^6/uL (4.5-5.9) 12/13/24 04:28 Hgb 14.7 g/dL (13.5-17.5) 12/13/24 04:28 Hct 44.5 % (41-53) 12/13/24 04:28 Creatinine 1.27 mg/dL (0.66-1.25) H 12/13/24 04:28 Hemoglobin A1c 13.0 % (4.0-6.0) H 12/11/24 00:27 Lactate 1.7 mmol/L (0.7-2.1) 12/10/24 15:40 NT-Pro-B Natriuret Pep 2100 pg/mL (<450) H 12/11/24 00:27 Nutrition Diagnosis: Severe Acute Protein Calorie Malnutrition r/t hyperglycemia as evidenced by 13% weight loss within 6 months (severe), BMI underweight for age, A1c 13% on 12/11/24 and admitting glucose 597 Interventions: -Discussed tools for DM management and outpatient support with DM educator and barriers- coordination of care -Discussed additional snack/ONS options to help meet calorie/protein needs based on current PO intakes EER: [id number] kcals (25-30 kcals/kg per BMI) 80-100 g protein (1.25-1.5 g/kg per malnutrition) Monitoring/Evaluations: BG, PO intakes, ONS trial Electronically Signed by: Nathaly Rodarte 12/13/24 12:26 Clinical Dietitian [address] [address]
--- NOTE | 2024-12-13 14:21 | P.PN_ITS ---
Subjective Subjective Date Patient Seen: 12/13/24 Time Patient Seen: 09:15 Interval history: CC: hyperglycemia respiratory failure Feeling still weak today but his sugars were at least not low on awakening eating well He is very interested in getting on an insulin pump after discharge Goal today is work with PT and get sugars calmed down exploring discharge options Exam Vital Signs (past 8 hours): - 12/13/24 07:04 12/13/24 08:00 12/13/24 08:00 Temperature 96.6 F L Pulse Rate 86 82 Respiratory Rate 24 Blood Pressure 90/55 L Pulse Oximetry 98 87 L Oxygen Delivery Method Room Air Nasal Cannula Oxygen Flow Rate 0 0 Fraction of Inspired Oxygen 21 12/13/24 10:00 12/13/24 12:00 Temperature 96.5 F L Pulse Rate 60 69 Respiratory Rate 18 Blood Pressure 94/60 96/61 Pulse Oximetry 91 Oxygen Delivery Method Oxygen Flow Rate 0 Fraction of Inspired Oxygen Fraction of Inspired Oxygen 21 SaO2/FiO2 Ratio 466 Oxygen Delivery Method Nasal Cannula Oxygen Flow Rate 0 Narrative Exam Narrative: sitting in chair Resp Other: moving air well still some bibasilar crackles on 1.5L via NC Cardio Other: regular rate s1/s2 no pedal edema GI Other: soft nontender active bowel sounds Neuro Other: alert oriented moving all limbs Objective Labs 12/13/24 04:28 12/13/24 04:28 Labs: Laboratory Results - last 24 hr 12/13/24 04:28 WBC 11.4 H RBC 4.61 Hgb 14.7 Hct 44.5 MCV 96.4 MCH 31.9 MCHC 33.1 RDW 14.4 Plt Count 178 Neut % (Auto) 62.3 Lymph % (Auto) 20.7 L [place] % (Auto) 14.4 H Eos % (Auto) 2.0 Baso % (Auto) 0.6 Neut # (Auto) 7100 H Lymph # (Auto) 2400 [place] # (Auto) 1700 H Eos # (Auto) 200 Baso # (Auto) 100 Sodium 131 L Potassium 4.3 Chloride 98 Carbon Dioxide 28 BUN 35 H Creatinine 1.27 H Estimated GFR 55 L BUN/Creatinine Ratio 27.6 H Glucose 221 H D Calcium 8.7 Total Bilirubin 0.5 AST 27 ALT 24 Alkaline Phosphatase 81 Total Protein 6.0 L Albumin 3.1 L Globulin 2.9 Albumin/Globulin Ratio 1.1 [facility] Medical History (Updated 12/10/24 @ 15:20 by Flo Cabrera DO) Atrial fibrillation Myocardial infarction Ischemic cardiomyopathy Hyperlipidemia Hypertension Obesity Primary insomnia Snoring Type 2 diabetes mellitus Obstructive sleep apnea of adult Surgical History S/P implantation of automatic cardioverter/defibrillator (AICD) History of cholecystectomy History of ERCP History of partial knee replacement History of left knee replacement History of resection of pancreas History of splenectomy History of hernia repair Family History Father No problems noted. Mother Leukemia Social History household members: spouse Smoking Status: Former smoker alcohol intake: former Assessment & Plan Assessment & Plan narrative: #type 1 diabetes with hyperglycemia #lactic acidosis Long acting is inducing hypoglycemia involving pharmacy and wellness educator and bulk intake worker still trying to find safe discharge dosing A1c 13 consistent with general uncontrolled sugars of late He does not see endocrine as an outpatient he does not have an insulin pump He is enthusiastic about getting an insulin pump on discharge - daughter in law Corrie is working on that, might be able to arrange at SNF. #acute respiratory failure this is improving with diuresis but still he is needing oxygen here and there to maintain his sats. He is using incentive spirometer well #elevated BNP #acute on chronic diastolic and systolic heart failure diuresing with lasix iv he is improving track BNPs supplemental o2 as needed last echo over a year ago had systolic EF 35-40% repeat echo at admission essentially unchanged #severe protein-calorie malnutrition 20 pounds weight loss in 6 months unintentional. Hard for him to prepare 3 good meals a day for 2. Encourage eating. #hx of COPD prn duonebs ordered he says cough is about baseline CXR reassuring encourage incentive spirometer use #hyperkalemia Improved after insulin and fluids, monitor #hypertension a/w diabetes stable BP vitals ok continue home regimen with prn hydralazine #hyperlipidemia stable continue home meds #BPH continue home meds -I suspected nocturia q1hr at presentation secondary to hyperglycemia PSA turned out to be less than 1. When hyperglycemia was resolved he said ?I got the best night of sleep in a while.? #caregiver role strain he is primary caregiver for his Irish who requires constant care which complicates discharge plan they live alone but have family support in the area Family is inquiring about local respite care options for her Dispo: admit inpatient, exploring discharge options. PT and OT both rec SNF rehab. diet: carb controlled MDM: daughter Matthias Verma [phone] or [phone] - daughter in law Corrie [phone] Code: DNR Time-Based Coding :: [TOTAL MINUTES] spent with patient and on the chart (including review of chart, obtaining history, exam, reviewing outside data, placing orders, documenting exam and treatment plan, and counseling patient) on [DATE]. Quality VTE Deep Vein Thrombosis/Pulmonary Embolism Present on Admission: No
--- NOTE | 2024-12-13 16:47 | CM.DPNOTE ---
DCP Note HUMANITIES AND LANGUAGES PROFESSOR reviewed EMR per Amy, pt improving with sugars but still working to finalize insulin plan. if pt ends up mobilizing safely for home would be agreeable to home with HH if family also agreeable. Amy suggested this HUMANITIES AND LANGUAGES PROFESSOR meet with MOLLY Denton for DCP coordination. Per RN, pt mobilized up and down halls with PT. did well, just tired easily. PT/OT continue to rec SNF at pr. Per RN report, pt remains on 2ltrs O2 at the moment and no home o2 at baseline. HUMANITIES AND LANGUAGES PROFESSOR attempted to meet with pt in room, sleeping heavily. HUMANITIES AND LANGUAGES PROFESSOR spoke with MOLLY Denton (p [phone]) for lengthy DCP conversation. confirms pt's with dementia is with her and pt's son, Mervin at the moment. Per Corrie, continue to advocate for seam closer/nurses educator consult for pt. report that preference for rehab will depend on if/how pt does getting off oxygen, if needing oxygen, family will continue to advocate for SNF over HH. open to HH if pt able to be weaned off oxygen,. HUMANITIES AND LANGUAGES PROFESSOR placed senior resources booklet/alternative SNF/HH options information in pt's room while he was sleeping for MOLLY Denton to review. Per Ciera at , unsure if they have bed availability. likely can accept if so. only current SNF qualifying diagnosis is the acute on chronic resp fail/COPD exacerbation if that is improving and not resolved. P: SNF vs home with HH (referral needed) if no beds at , new preferences/referrals needed. pending how pt is able to be weaned off o2 or not. CM team will continue to follow closely for DCP coordination. TEMO Owens
[2024-12-13] MEDS: DIGOXIN 0.125 MG TABLET PO (17:35)
[2024-12-13] MEDS: ASPIRIN EC 81 MG TABLET PO (17:36)
[2024-12-13] MEDS: ATORVASTATIN 20 MG TABLET PO (20:40)
[2024-12-14] VITALS (7 sets, daily range): BP systolic 93–116; BP diastolic 51–76; PULSE 85–88; RESP 16–21; TEMP 36.1–36.4; O2SAT 93–95
[2024-12-14 05:05] LABS: Add Manual Diff / Slide Review NO; Basophils Absolute Auto 200 /uL (0-100); Basophils Percent Auto 1.2 % (0-2); Eosinophils Absolute Auto 200 /uL (0-450); Eosinophils Percent Auto 1.7 % (2-4); Hematocrit 46.2 % (41-53); Hemoglobin 15.1 g/dL (13.5-17.5); Lymphocytes Absolute Auto 2400 /uL (1100-4500); Lymphocytes Percent Auto 18.9 % (25-40); Mean Corpuscular HGB Conc 32.7 % (30-36); Mean Corpuscular Hemoglobin 31.4 PG (26-34); Monocytes Absolute Auto 1400 /uL (0-900); Monocytes Percent Auto 11.1 % (3-14); Neutrophils Absolute Auto 8700 /uL (1500-7000); Neutrophils Percent Auto 67.1 % (50-75); Platelet Count 208 X10^3/uL (150-400); Red Blood Cell Count 4.82 X10^6/uL (4.5-5.9); White Blood Cell Count 12.9 X10^3/uL (4.5-11.0)
[2024-12-14 05:26] LABS: Alanine Aminotransferase 25 IU/L (<50); Albumin 3.2 g/dL (3.5-5.0); Alkaline Phosphatase 89 U/L (38-126); Aspartate Aminotransferase 30 IU/L (17-59); BUN Creatinine Ratio 27.6 (6-22); Bilirubin Total 0.7 mg/dL (0.2-1.3); Blood Urea Nitrogen 34 mg/dL (9-20); Calcium 8.8 mg/dL (8.4-10.2); Carbon Dioxide 28 mmol/L (22-32); Chloride 99 mmol/L (98-107); Estimated Glomerular Filt Rate 57 mL/min (>60); Globulin 3.1 g/dL (1.7-4.1); Glucose 92 mg/dL (80-110); HEMOLYSIS < 15 (0-50); Potassium 4.5 mmol/L (3.4-5.1); Sodium 133 mmol/L (137-145); Total Protein 6.3 g/dL (6.3-8.2)
--- NOTE | 2024-12-14 08:27 | DI.RAD.S_ITS ---
PROCEDURE: XR CHEST 2V INDICATIONS: rales bases TECHNIQUE: 2 views of the chest were acquired. COMPARISON: [facility], CR, XR CHEST 1V, 12/12/2024, 10:23. [facility], CR, XR CHEST 1V, 12/10/2024, 13:23. FINDINGS: Surgical changes and devices: Left chest wall pacemaker Lungs and pleura: Lungs are clear. No pleural effusions or pneumothorax. Mediastinum: Mediastinal contours are normal. Heart size is prominent, stable. Bones and chest wall: No suspicious bony abnormalities. Soft tissues appear unremarkable. IMPRESSION: No acute cardiopulmonary abnormality is seen. Dictated by: Bala Swift M.D. on 12/14/2024 at 9:54 Approved by: Bala Swift M.D. on 12/14/2024 at 9:57
--- NOTE | 2024-12-14 08:29 | PM.PN.1 ---
Subjective Subjective Date Patient Seen: 12/14/24 Time Patient Seen: 08:29 Interval history: Patient seen in follow-up of acute respiratory failure and type 2 diabetes. No other changes or complaints. Still feeling quite weak. On no oxygen this morning. Patient is having no chest pain. Or other change. Exam Vital Signs (past 8 hours): - 12/14/24 04:00 12/14/24 07:27 Temperature 96.9 F L 97.6 F Pulse Rate 85 86 Respiratory Rate 16 17 Blood Pressure 110/61 116/76 Pulse Oximetry 95 94 Oxygen Flow Rate 0 Fraction of Inspired Oxygen 21 SaO2/FiO2 Ratio 466 Oxygen Delivery Method Nasal Cannula Oxygen Flow Rate 0 Narrative Exam Narrative: Alert elderly male sleeping initially in no acute distress Lungs right base with crackles and occasional rhonchi left base with crackles. Otherwise clear. No retractions or other change. Heart is regular rate and rhythm without murmurs clicks rubs or gallops abdomen is soft positive bowel sounds nontender extremities without edema Objective Labs 12/14/24 04:43 12/14/24 04:43 Labs: Laboratory Results - last 24 hr 12/14/24 04:43 WBC 12.9 H RBC 4.82 Hgb 15.1 Hct 46.2 MCV 96.0 MCH 31.4 MCHC 32.7 RDW 14.0 Plt Count 208 Neut % (Auto) 67.1 Lymph % (Auto) 18.9 L [place] % (Auto) 11.1 Eos % (Auto) 1.7 L Baso % (Auto) 1.2 Neut # (Auto) 8700 H Lymph # (Auto) 2400 [place] # (Auto) 1400 H Eos # (Auto) 200 Baso # (Auto) 200 H Sodium 133 L Potassium 4.5 Chloride 99 Carbon Dioxide 28 BUN 34 H Creatinine 1.23 Estimated GFR 57 L BUN/Creatinine Ratio 27.6 H Glucose 92 D Calcium 8.8 Total Bilirubin 0.7 AST 30 ALT 25 Alkaline Phosphatase 89 Total Protein 6.3 Albumin 3.2 L Globulin 3.1 Albumin/Globulin Ratio 1.0 PFSH Medical History (Updated 12/10/24 @ 15:20 by Flo Cabrera DO) Atrial fibrillation Myocardial infarction Ischemic cardiomyopathy Hyperlipidemia Hypertension Obesity Primary insomnia Snoring Type 2 diabetes mellitus Obstructive sleep apnea of adult Surgical History S/P implantation of automatic cardioverter/defibrillator (AICD) History of cholecystectomy History of ERCP History of partial knee replacement History of left knee replacement History of resection of pancreas History of splenectomy History of hernia repair Family History Father No problems noted. Mother Leukemia Social History household members: spouse Smoking Status: Former smoker alcohol intake: former Assessment & Plan Assessment & Plan narrative: Acute respiratory failure. Patient actually is improved he has had significant changes in the right base and I would like a chest x-ray. Will check BNP to make sure stable and depending on those results I suspect maybe tomorrow he will be to be discharged. I would like to see if we can maintain off of O2 at this time. Continue Lasix at this time. Will see what BNP shows. Type 1 diabetes with hyperglycemia. Possible early lactic acidosis. Working on control patient still does not feel as if he has control what he is supposed to be doing. Will continue education today and follow. Acute on chronic diastolic heart failure. Continue Lasix. Continue BNP. Rechecked that today and see how things go. Follow from there. Patient has got a history of pretty severe congestive heart failure with EF since this low 40s. Will see how things go. Severe protein calorie malnutrition. Probably has some to do with his sugar issues will have to follow. Weakness. Pretty significant. Reviewed PT is last evaluation. Recommending sniff. History of COPD. On duo nebs. We will see what chest x-ray shows today. Hyperkalemia. Stable at this time. Recheck a.m. before discharge. Hypertension. Stable. Hyperlipidemia. Stable on current meds BPH. Doing well. Will follow. Code status DNR. Disposition. Depending on how things to go will be looking at possible sniff placement. Will see how today goes. And when bed available. Off oxygen and maybe able to go home with family but will have to see how things go. See what strength is. Make decision tomorrow hopefully he gets stronger today. Can do basic stuff at home. Time-Based Coding :: [TOTAL MINUTES] spent with patient and on the chart (including review of chart, obtaining history, exam, reviewing outside data, placing orders, documenting exam and treatment plan, and counseling patient) on [DATE]. Quality VTE Deep Vein Thrombosis/Pulmonary Embolism Present on Admission: No
[2024-12-14] MEDS: APIXABAN 5 MG TABLET 2.5 MG PO ×2 (08:42→20:55)
[2024-12-14] MEDS: PANTOPRAZOLE DR 40 MG TABLET PO (08:42)
[2024-12-14] MEDS: METOPROLOL ER 25 MG TABLET 75 MG PO (08:42)
[2024-12-14] MEDS: TAMSULOSIN 0.4 MG CAPSULE 0.8 MG PO (08:43)
[2024-12-14] MEDS: FINASTERIDE 5 MG TABLET PO (08:43)
[2024-12-14] MEDS: Mexiletine 150 mg capsule 150 EACH PO ×2 (08:48→20:56)
[2024-12-14] MEDS: Sacubitril-Valsartan [Entresto] 24-26 mg tablet 1 EACH PO ×2 (08:48→20:56)
[2024-12-14] MEDS: SODIUM CHLORIDE 0.9% FLUSH 10 ML IV ×2 (09:00→21:07)
[2024-12-14 09:06] LABS: NT-proBNP (BNP-Adult 18+) 1030 pg/mL (<450)
--- NOTE | 2024-12-14 11:00 | OT.IP.TRT ---
Current Diagnoses Type 1 diabetes mellitus with hyperglycemia (12/10/24) Occupational Therapy Treatment Note M2 OT-IP Current Condition Start: 12/13/24 14:35 Freq: Status: Active Protocol: Document 12/13/24 14:35 CGR (Rec: 12/13/24 14:49 CGR [id number]) Occupational Therapy Current Condition Current Condition Evaluation Date 12/13/24 Treatment Diagnosis lethargy, SOB, hyper glycemia Diagnosis Onset Date 12/10/24 M3 OT- IP Subjective and Pain Start: 12/13/24 14:35 Freq: Status: Active Protocol: Document 12/14/24 11:05 CCC (Rec: 12/14/24 11:14 [facility] [id number]) OT- Subjective Occupational Therapy Visit Type Type Initial Evaluation Visit Start Time 10:29 Visit Stop Time 11:00 Occupational Therapy Visit Comments Patient Comments Pt agreed to get up to brush his teeth and use the toilet. Patient/Caregiver Goals TO go home. OT Pain Assessment Pain When Pain Assessed At Rest Pain Present Pain Present Denied Pain M4 OT- IP ADL's Start: 12/13/24 14:35 Freq: Status: Active Protocol: Document 12/14/24 11:05 CCC (Rec: 12/14/24 11:14 [facility] [id number]) OT APK-Hlmh-Hhalqej General Evaluation Self-Feeding Ability Independent OT ADL-Grooming General Evaluation Grooming Ability Independent OT ADL-Oral Care General Eval Oral Care Ability Independent OT ADL-Dressing General Eval Lower Body Dressing Ability Standby Assistance Areas Needing Assistance Underpants/Brief OT ADL-Toileting General Evaluation Toileting Ability Contact Guard Assistance Comments OT Toileting Comments Pt able to sit and urinate and CGA while standing to pull up his brief for balance. OT ADL-Bathing Comments OT Bathing Comments Pt too tired to attempt showering even though would like a shower. M5 OT- IP IADL's Start: 12/13/24 14:35 Freq: Status: Active Protocol: Document 12/13/24 14:35 CGR (Rec: 12/13/24 14:49 CGR [id number]) OT-Instrumental Activities of Daily Living Deficits IADL Deficits Identified Deficits Home Safety Awareness Awareness of Need for Assistance at Home Decreased Awareness Medication Management Medication Management Caregiver Administers Money Management Money Management Caregiver Provides Assistance Meal Preparation Meal Preparation Caregiver Provides Assist Drama Director Drama Director Caregiver Provides Assist Driving Driving Comments Unsure if pt drives M6 OT- IP Functional Cognition Start: 12/13/24 14:35 Freq: Status: Active Protocol: Document 12/14/24 11:05 [facility] (Rec: 12/14/24 11:14 [facility] [id number]) Cognitive Factors Limiting Selfcare Function Cognitive Comments Cognitive Assessment Comments Pt able to follow commands for ADL and mobility needs. M7 OT- IP Mobility and Balance Start: 12/13/24 14:35 Freq: Status: Active Protocol: Document 12/14/24 11:05 [facility] (Rec: 12/14/24 11:14 [facility] [id number]) OT- Bed Mobility Assessment Supine to Sit Supine to Sit Assist Standby Assistance Scooting Scooting to Edge of Bed Standby Assistance OT-Transfer Assessment Sit to and From Stand Sit to and from Stand Contact Guard Assistance, Minimal Assistance Transfers Transfer Ability Contact Guard Assistance, Minimal Assistance Technique Transfer Destination Bed,Chair,Toilet Transfer Technique Stand Step Pivot Devices Transfer Assistive Devices Gait Belt,Straight Cane,Front Wheeled Walker Comments Mobility Comments Tried use of SPC and pt needing HEIDY for balance and mush safer with the FWW and with CGA for balance needs. Pt on RA and unable to get a good reading and readings from 79-100%, nursing notified. Pt not complaining of any symptoms. OT- Balance Assessment Sitting Balance and Reactions Static Sitting Balance Ability Good Dynamic Sitting Balance Ability Good Standing Balance and Reactions Static Standing Balance Ability Good Dynamic Standing Balance Ability Fair M8 OT- IP Objective Assessments Start: 12/13/24 14:35 Freq: Status: Active Protocol: Document 12/13/24 14:35 CGR (Rec: 12/13/24 14:49 CGR [id number]) OT Gross Range of Motion Upper Extremity Range of Motion Assessment Within Functional Limits OT Strength Upper Extremity Strength Assessment Within Functional Limits Comments Strength Comments 4/5 OT- Coordination Assessment Upper Extremity Finger to Nose Test Within Functional Limits Finger Tapping Test Within Functional Limits OT-Muscle Tone Assessment Muscle Tone WNL Yes OT Sensation Assessment Edema Edema Absent M9 OT- IP Assessment and Plan Start: 12/13/24 14:35 Freq: Status: Active Protocol: Document 12/14/24 11:05 [facility] (Rec: 12/14/24 11:14 [facility] [id number]) OT Summary Assessment and Plan Potential Rehabilitation Potential Good Analytic Complexity at Evaluation Moderate Summary OT Impairments Balance,Functional Cognition, Functional Mobility,Grooming, Dressing,Toileting,Bathing, Toilet Transfers,Shower Transfers,Activity Tolerance Progress Towards Goals Progressing Toward Goals,Slow Progress due to Activity Tolerance Assessment Summary Pt still needing HEIDY for mobility needs due to decreased balance. Pt a little better with safety awareness today. Pt would benefit from 24/7 assist at home and home health, otherwise SNF. Goals Self-Feeding Goal Independent Grooming Goal Independent Dressing Goal Independent Toileting Goal Independent Bathing Goal Independent Toilet Transfer Goal Independent Shower Transfer Goal Independent Days to Meet Goals 9 Frequency of Treatment Other frequency 5x per week Treatment Plan OT Treatment Plan ADL Training,Functional Cognition Training,Functional Mobility,Patient/Family Education,Discharge Planning Other Treatment Recommendations and Next SLUMS,shower Treatment Focus Discharge Recommendations OT Discharge Recommendations Home with 24/7 Assist Available,Home Health,SNF Rehab,Home vs SNF Transportation Needs at Discharge Private Vehicle
[2024-12-14] MEDS: INSULIN LISPRO 100 UNIT/ML 3ML VIAL SUBCUT ×2 (12:13→17:30)
--- NOTE | 2024-12-14 14:15 | PT.IPTN ---
Current Diagnoses Type 1 diabetes mellitus with hyperglycemia (12/10/24) Physical Therapy Treatment Note M2 PT-IP Current Condition Start: 12/11/24 17:09 Freq: NEEDED Status: Active Protocol: Document 12/11/24 13:50 AB (Rec: 12/11/24 17:25 AB [id number]) Physical Therapy Current Condition Current Condition Evaluation Date 12/11/24 Treatment Diagnosis CHF; hyperglycemia; difficulty in walking Onset Date 12/10/24 M3 PT-IP Subjective Start: 12/11/24 17:09 Freq: NEEDED Status: Active Protocol: Document 12/14/24 14:15 AB (Rec: 12/14/24 16:43 AB [id number]) Subjective Physical Therapy Visit Type Type Treatment Note Visit Start Time 14:15 Visit Stop Time 14:40 Number of [employer] MECHANIC Visits 0 M4 PT-IP Mobility and Gait Start: 12/11/24 17:09 Freq: NEEDED Status: Active Protocol: Document 12/14/24 14:15 AB (Rec: 12/14/24 16:43 AB [id number]) PT-Bed Mobility Assessment Sit to Supine Sit to Supine Minimal Assistance,1 Person Assistance PT-Transfer Assessment Sit to and From Stand Sit to and from Stand Minimal Assistance,1 Person Assistance,Use of Upper Extremities Equipment Transfer Assistive Device Gait Belt,Front Wheeled Walker Orthotic/Prosthetic Devices or Brace: No Transfers Transfer Destination Bed Transfer Technique Stand Step Pivot Transfer Ability Level of Assist Minimal Assistance,1 Person Assistance,Use of Upper Extremities Comments Mobility Comments pt sitting on the chair and agreeable to do PT. BP checked: L arm: 79/55 R arm: 81/45 rechecked L forearm: 87/45. O2 sat: 88-92% at RA. informed nurse. Assisted pt back to bed. min A for sit to stand and step transfer to bed using fWW min A. min A for bed mobility sit to supine. BP checked: 81/48 after transferring. positioned pt in bed. call light and table placed within reach. BP checked: 88/53. M5 PT-IP Objective Assessments Start: 12/11/24 17:09 Freq: NEEDED Status: Active Protocol: Document 12/11/24 13:50 AB (Rec: 12/11/24 17:25 AB [id number]) Orientation Orientation/Cognition Level of Alertness Alert Orientation Name,Place,Situation Language Function Ability Hard of Hearing Safety Awareness Decreased Safety Awareness Memory Description No Deficits Noted Strength Lower Extremity Strength Hip 4-/5 Knee 4-/5 Muscle Tone Muscle Tone WNL Yes M6 PT-IP Treatment Start: 12/11/24 17:09 Freq: NEEDED Status: Active Protocol: Document 12/14/24 14:15 AB (Rec: 12/14/24 16:43 AB [id number]) Physical Therapy Treatment Education Education Provided Safety M7 PT-IP Assessment and Plan Start: 12/11/24 17:09 Freq: NEEDED Status: Active Protocol: Document 12/14/24 14:15 AB (Rec: 12/14/24 16:43 AB [id number]) PT Summary Assessment and Plan Potential Rehabilitation Potential Fair Summary Impairments Pain,ROM,Strength,Balance, Coordination,Sensation,Tone, Cognition,Bed Mobility, Transfers,Gait,Activity Tolerance Progress Towards Goals Slow Progress due to Medical Issues,Slow Progress due to Activity Tolerance Assessment Summary pt has low BP today limiting activity tolerance. pt requires min A with bed mobility and transfers using FWW. pt will require assistance at home and will benefit from SNF rehab. Goals Bed Mobility Goal Independent Transfer Goal Independent,Front Wheeled Walker Gait Goal Independent,Front Wheel Walker Gait Distance 100 Other Goals improve transfers, ambulation using 4WW 150 ft mod I Days to Meet Goals 10 Frequency of Treatment Frequency Of Treatment Once a Day Treatment Plan Physical Therapy Treatment Plan Bed Mobility Training,Transfer Training,Gait Training, Therapeutic Exercise,Balance Retraining,Discharge Planning, Hot or Cold Pack,Neuromuscular Re-ed,Coordination Retraining Precautions Other Precautions falls, O2 sat Recommendations To Nursing Amount of Assist Needed 1 Person Assist Discharge Recommendations PT Discharge Recommendations SNF Rehab Transportation Needs at Discharge Wheelchair/Cabulance
--- NOTE | 2024-12-14 15:10 | CM.DPNOTE ---
Addendum entered by TEMO Owens 12/14/24 15:23: per Corrie/pt, good contact for [facility] to schedule is bala Jeffries ([phone]) Original Note: DCP Note CHAIR AND COUCH MAKER reviewed EMR per Dr. Wahl, pt on room air. could dc tomorrow, up to family whether or not SNF vs home with HH. okay with both plans CHAIR AND COUCH MAKER met with pt in room. Preference is home with HH at dc instead of SNF. reports feeling like now that he's off oxygen he could manage at home. in agreement with HH. open to family pursing hiring PP CGs in the home. no preference for HH agency. Gave CM team permission to speak with any of his children/DIL about DCP. CHAIR AND COUCH MAKER had conversation with Corrie BARNES ([phone]). Corrie reports that now that pt is off oxygen, family also in agreement with home with HH. no preference for agency. Will f/u with pt and other adult children about hiring PP CGs in home, reports having seen Senior resources booklet in pt's room left by this CHAIR AND COUCH MAKER. in agreement with pt dc home tomorrow with HH at this time. CHAIR AND COUCH MAKER answered questions to best of ability. concern about pt seeing traveling plant operator while admitted/electrical power station technician follow up. She reported she has a colleague (Corrie is a doctor of some sort) that is an electrical power station technician and she's going to try and get pt set up with her connection. Per parlor chaperonecleo Andersen, spoke with Cynthia traveling plant operator- no time available to meet with pt today but will attempt tomorrow. Cynthia reports in general for a pt to get insulin pump with electrical power station technician, pt could likely do mix of telehealth and in person appts if needed. placed referral with [facility] based on random rotating vendor calendar. JEFFERY May emailed Silvia at [facility] referral information. Silvia reports she can accept referral. need f2f/order/dc summary. Per Ciera at , will keep referral in case pt changes mind but won't prioritize him for beds. PASRR previously completed. P: anticipate dc home tomorrow with family support and [facility] to follow. SV as backup. family to potentially pursue PP CGs for pt and pt spouse with dementia to help at home. CM team will continue to follow as needed for final DCP coordination needs. TEMO Owens
[2024-12-14] MEDS: ASPIRIN EC 81 MG TABLET PO (16:20)
[2024-12-14] MEDS: ATORVASTATIN 20 MG TABLET PO (20:55)
[2024-12-15 00:14] VITALS: BP 105/58; PULSE 85; RESP 16; TEMP 36.3; O2SAT 96
[2024-12-15 08:00] VITALS: BP 116/68; PULSE 85; RESP 18; TEMP 36.8; O2SAT 91
[2024-12-15] MEDS: PANTOPRAZOLE DR 40 MG TABLET PO (08:07)
[2024-12-15] MEDS: INSULIN LISPRO 100 UNIT/ML 3ML VIAL SUBCUT ×2 (08:08→12:38)
[2024-12-15] MEDS: FINASTERIDE 5 MG TABLET PO (09:57)
[2024-12-15] MEDS: APIXABAN 5 MG TABLET 2.5 MG PO (09:57)
[2024-12-15] MEDS: SODIUM CHLORIDE 0.9% FLUSH 10 ML IV (09:58)
[2024-12-15] MEDS: TAMSULOSIN 0.4 MG CAPSULE 0.8 MG PO (09:58)
[2024-12-15] MEDS: Mexiletine 150 mg capsule 150 EACH PO (10:00)
--- NOTE | 2024-12-15 12:10 | PT.IPTN ---
Current Diagnoses Type 1 diabetes mellitus with hyperglycemia (12/10/24) Physical Therapy Treatment Note M2 PT-IP Current Condition Start: 12/11/24 17:09 Freq: NEEDED Status: Active Protocol: Document 12/15/24 11:55 SP (Rec: 12/15/24 12:28 SP [id number]) Physical Therapy Current Condition Current Condition Evaluation Date 12/11/24 Treatment Diagnosis CHF; hyperglycemia; difficulty in walking Onset Date 12/10/24 M3 PT-IP Subjective Start: 12/11/24 17:09 Freq: NEEDED Status: Active Protocol: Document 12/15/24 11:55 SP (Rec: 12/15/24 12:28 SP [id number]) Subjective Physical Therapy Visit Type Type Treatment Note Visit Start Time 11:55 Visit Stop Time 12:10 Number of [employer]AND [employer] CHIEF Visits 1 Physical Therapy Visit Comments Patient Comments Pt agreeable to do PT Therapy Pain Assessment Pain Present Pain Present Denied Pain M4 PT-IP Mobility and Gait Start: 12/11/24 17:09 Freq: NEEDED Status: Active Protocol: Document 12/15/24 11:55 SP (Rec: 12/15/24 12:28 SP [id number]) PT-Bed Mobility Assessment Supine to Sit Supine to Sit Standby Assistance,1 Person Assistance,Head of Bed Elevated,Bedrails Scooting Scooting to Edge of Bed Standby Assistance PT-Transfer Assessment Sit to and From Stand Sit to and from Stand Contact Guard Assistance,1 Person Assistance,Use of Upper Extremities Transfers Transfer Destination Chair Transfer Technique ambulated FWW Transfer Ability Level of Assist Standby Assistance,Contact Guard Assistance,1 Person Assistance,Use of Upper Extremities Comments Mobility Comments Pt elevated supine when arrived SO2 1 L beeping 74% cued breath and changed to R UE 5th finger with improvement 88% 1L, increased to 2L elevated to 96%, agreeable working with [employer]AND [employer]YING [employer] CHIEF. Completed elevated supine>sit/ scoot toEOB Heavy BUE SBA. STS cues for push from bed /c FWW CGA. Gait around room x2 laps /c FWW CG/SBA, stop stand rest check O2 87-88%, cued breath with improvement to 91% on 2L. [employer]AND [employer]YING PARTY CHIEF provided O2 line mgt. REturned to chair stand > sit SBA good use UE support to sit. SaO2 88% 2L cued breath improved 94%, reduced O2 1L and ed breath maintained 94%. Provided education continue breath and use inspirometer. Recommending continued skilled PT for progression strength and Improve O2 saturation breath strategies and continue energy conservation education . He had call light and all needs reach with chair alarm donned. Recommending HHPT 02/06 at this time vs SNF. Gait Assessment Gait Gait Assistance Required: Standby Assistance,1 Person Assist Distance (Feet) 60 Able to Maintain Weight Bearing Status Yes During Gait Assistive Devices Assistive Device Gait Belt,Front Wheeled Walker Orthotic/Prosthetic Devices or Brace: No Gait Deviations General Gait Pattern Decreased Stride Length, Decreased Feet Clearance, Flexed Trunk,Narrow Based Gait Factors Limiting Gait Function Factors Limiting Gait Function Decreased Activity Tolerance, Decreased Strength,Poor Safety Awareness,Respiratory Distress Comments Gait Comments see mobility comments Stair Climbing Assessment Comments Stair Climbing Comments has ramp to enter home, not need assess stairs. PT-Balance Assessment Sitting Balance and Reactions Static Sitting Balance Ability Normal Dynamic Sitting Balance Ability Good Standing Balance and Reactions Static Standing Balance Ability Good Dynamic Standing Balance Ability Fair Device Used FWW M5 PT-IP Objective Assessments Start: 12/11/24 17:09 Freq: NEEDED Status: Active Protocol: Document 12/11/24 13:50 AB (Rec: 12/11/24 17:25 AB [id number]) Orientation Orientation/Cognition Level of Alertness Alert Orientation Name,Place,Situation Language Function Ability Hard of Hearing Safety Awareness Decreased Safety Awareness Memory Description No Deficits Noted Strength Lower Extremity Strength Hip 4-/5 Knee 4-/5 Muscle Tone Muscle Tone WNL Yes M6 PT-IP Treatment Start: 12/11/24 17:09 Freq: NEEDED Status: Active Protocol: Document 12/15/24 11:55 SP (Rec: 12/15/24 12:28 SP [id number]) Physical Therapy Treatment Education Education Provided Safety Other Treatments Other Treatment Performed Cues for breath and slower pacing energy conservation stop breath for safety SaO2 saturation. Pt reports has Oximeter but doesn't work well with his cold fingers. M7 PT-IP Assessment and Plan Start: 12/11/24 17:09 Freq: NEEDED Status: Active Protocol: Document 12/15/24 11:55 SP (Rec: 12/15/24 12:28 SP [id number]) PT Summary Assessment and Plan Potential Rehabilitation Potential Fair Summary Impairments Pain,ROM,Strength,Balance, Coordination,Sensation,Tone, Cognition,Bed Mobility, Transfers,Gait,Activity Tolerance Progress Towards Goals Slow Progress due to Medical Issues,Slow Progress due to Activity Tolerance Assessment Summary Pt improved Vitals: BP 124/67 supine, SaO2 see mobility comments, improved 90s sitting 1L but needed 2L during mobility, bed mob SBA alot effort/ heavy BUEs, gait SBA / c FWW [employer] CHIEF managed O2 line. Recommending HHPT 24/7 for support breath strategies and supplimental O2 needed at this time. vs SNF. Will continue to assess progress. Goals Bed Mobility Goal Independent Transfer Goal Independent,Front Wheeled Walker Gait Goal Independent,Front Wheel Walker Gait Distance 100 Other Goals improve transfers, ambulation using 4WW 150 ft mod I Days to Meet Goals 10 Frequency of Treatment Frequency Of Treatment Once a Day Treatment Plan Physical Therapy Treatment Plan Bed Mobility Training,Transfer Training,Gait Training, Therapeutic Exercise,Balance Retraining,Discharge Planning, Hot or Cold Pack,Neuromuscular Re-ed,Coordination Retraining Other Recommendations and Next Treatment Check SaO2, further gait /c Focus FWW wtih O2 checks, BLEs ex/ STS. Check balance. Precautions Other Precautions falls, O2 sat Recommendations To Nursing Amount of Assist Needed Standby Assistance,1 Person Assist Discharge Recommendations PT Discharge Recommendations Home with 24/7 Assist Available,Home Health,SNF Rehab,Home vs SNF Transportation Needs at Discharge Private Vehicle,Wheelchair/ Cabulance
--- NOTE | 2024-12-15 12:37 | PT.IPTN ---
Current Diagnoses Type 1 diabetes mellitus with hyperglycemia (12/10/24) Physical Therapy Treatment Note M2 PT-IP Current Condition Start: 12/11/24 17:09 Freq: NEEDED Status: Active Protocol: Document 12/15/24 11:55 SP (Rec: 12/15/24 12:28 SP [id number]) Physical Therapy Current Condition Current Condition Evaluation Date 12/11/24 Treatment Diagnosis CHF; hyperglycemia; difficulty in walking Onset Date 12/10/24 M3 PT-IP Subjective Start: 12/11/24 17:09 Freq: NEEDED Status: Active Protocol: Document 12/15/24 11:55 SP (Rec: 12/15/24 12:28 SP [id number]) Subjective Physical Therapy Visit Type Type Treatment Note Visit Start Time 11:55 Visit Stop Time 12:10 Number of [employer] Visits 1 Physical Therapy Visit Comments Patient Comments Pt agreeable to do PT Therapy Pain Assessment Pain Present Pain Present Denied Pain M4 PT-IP Mobility and Gait Start: 12/11/24 17:09 Freq: NEEDED Status: Active Protocol: Document 12/15/24 11:55 SP (Rec: 12/15/24 12:28 SP [id number]) PT-Bed Mobility Assessment Supine to Sit Supine to Sit Standby Assistance,1 Person Assistance,Head of Bed Elevated,Bedrails Scooting Scooting to Edge of Bed Standby Assistance PT-Transfer Assessment Sit to and From Stand Sit to and from Stand Contact Guard Assistance,1 Person Assistance,Use of Upper Extremities Transfers Transfer Destination Chair Transfer Technique ambulated FWW Transfer Ability Level of Assist Standby Assistance,Contact Guard Assistance,1 Person Assistance,Use of Upper Extremities Comments Mobility Comments Pt elevated supine when arrived SO2 1 L beeping 74% cued breath and changed to R UE 5th finger with improvement 88% 1L, increased to 2L elevated to 96%, agreeable working with [employer]. Completed elevated supine>sit/ scoot toEOB Heavy BUE SBA. STS cues for push from bed /c FWW CGA. Gait around room x2 laps /c FWW CG/SBA, stop stand rest check O2 87-88%, cued breath with improvement to 91% on 2L. [employer] provided O2 line mgt. REturned to chair stand > sit SBA good use UE support to sit. SaO2 88% 2L cued breath improved 94%, reduced O2 1L and ed breath maintained 94%. Provided education continue breath and use inspirometer. Recommending continued skilled PT for progression strength and Improve O2 saturation breath strategies and continue energy conservation education . He had call light and all needs reach with chair alarm donned. Recommending HHPT 02/06 at this time vs SNF. Gait Assessment Gait Gait Assistance Required: Standby Assistance,1 Person Assist Distance (Feet) 60 Able to Maintain Weight Bearing Status Yes During Gait Assistive Devices Assistive Device Gait Belt,Front Wheeled Walker Orthotic/Prosthetic Devices or Brace: No Gait Deviations General Gait Pattern Decreased Stride Length, Decreased Feet Clearance, Flexed Trunk,Narrow Based Gait Factors Limiting Gait Function Factors Limiting Gait Function Decreased Activity Tolerance, Decreased Strength,Poor Safety Awareness,Respiratory Distress Comments Gait Comments see mobility comments Stair Climbing Assessment Comments Stair Climbing Comments has ramp to enter home, not need assess stairs. PT-Balance Assessment Sitting Balance and Reactions Static Sitting Balance Ability Normal Dynamic Sitting Balance Ability Good Standing Balance and Reactions Static Standing Balance Ability Good Dynamic Standing Balance Ability Fair Device Used FWW M5 PT-IP Objective Assessments Start: 12/11/24 17:09 Freq: NEEDED Status: Active Protocol: Document 12/11/24 13:50 AB (Rec: 12/11/24 17:25 AB [id number]) Orientation Orientation/Cognition Level of Alertness Alert Orientation Name,Place,Situation Language Function Ability Hard of Hearing Safety Awareness Decreased Safety Awareness Memory Description No Deficits Noted Strength Lower Extremity Strength Hip 4-/5 Knee 4-/5 Muscle Tone Muscle Tone WNL Yes M6 PT-IP Treatment Start: 12/11/24 17:09 Freq: NEEDED Status: Active Protocol: Document 12/15/24 11:55 SP (Rec: 12/15/24 12:28 SP [id number]) Physical Therapy Treatment Education Education Provided Safety Other Treatments Other Treatment Performed Cues for breath and slower pacing energy conservation stop breath for safety SaO2 saturation. Pt reports has Oximeter but doesn't work well with his cold fingers. M7 PT-IP Assessment and Plan Start: 12/11/24 17:09 Freq: NEEDED Status: Active Protocol: Document 12/15/24 11:55 SP (Rec: 12/15/24 12:28 SP [id number]) PT Summary Assessment and Plan Potential Rehabilitation Potential Fair Summary Impairments Pain,ROM,Strength,Balance, Coordination,Sensation,Tone, Cognition,Bed Mobility, Transfers,Gait,Activity Tolerance Progress Towards Goals Slow Progress due to Medical Issues,Slow Progress due to Activity Tolerance Assessment Summary Pt improved Vitals: BP 124/67 supine, SaO2 see mobility comments, improved 90s sitting 1L but needed 2L during mobility, bed mob SBA alot effort/ heavy BUEs, gait SBA / c FWW [employer] managed O2 line. Recommending HHPT 24/7 for support breath strategies and supplimental O2 needed at this time. vs SNF. Will continue to assess progress. RFecommend OT for O2 Cord mgt training if going home for safety. Goals Bed Mobility Goal Independent Transfer Goal Independent,Front Wheeled Walker Gait Goal Independent,Front Wheel Walker Gait Distance 100 Other Goals improve transfers, ambulation using 4WW 150 ft mod I Days to Meet Goals 10 Frequency of Treatment Frequency Of Treatment Once a Day Treatment Plan Physical Therapy Treatment Plan Bed Mobility Training,Transfer Training,Gait Training, Therapeutic Exercise,Balance Retraining,Discharge Planning, Hot or Cold Pack,Neuromuscular Re-ed,Coordination Retraining Other Recommendations and Next Treatment Check SaO2, further gait /c Focus FWW wtih O2 checks, BLEs ex/ STS. Check balance. Precautions Other Precautions falls, O2 sat Recommendations To Nursing Amount of Assist Needed Standby Assistance,1 Person Assist Discharge Recommendations PT Discharge Recommendations Home with 24/7 Assist Available,Home Health,SNF Rehab,Home vs SNF Transportation Needs at Discharge Private Vehicle,Wheelchair/ Cabulance
--- NOTE | 2024-12-15 13:43 | OT.IP.TRT ---
Current Diagnoses Type 1 diabetes mellitus with hyperglycemia (12/10/24) Occupational Therapy Treatment Note M2 OT-IP Current Condition Start: 12/13/24 14:35 Freq: Status: Active Protocol: Document 12/13/24 14:35 CGR (Rec: 12/13/24 14:49 CGR [id number]) Occupational Therapy Current Condition Current Condition Evaluation Date 12/13/24 Treatment Diagnosis lethargy, SOB, hyper glycemia Diagnosis Onset Date 12/10/24 M3 OT- IP Subjective and Pain Start: 12/13/24 14:35 Freq: Status: Active Protocol: Document 12/15/24 14:13 [facility] (Rec: 12/15/24 14:18 [facility] [id number]) OT- Subjective Occupational Therapy Visit Type Type Treatment Note Visit Start Time 13:33 Visit Stop Time 13:43 Occupational Therapy Visit Comments Patient Comments Pt tired but agreed to do SLUMS. Patient/Caregiver Goals TO go home. OT Pain Assessment Pain When Pain Assessed At Rest Pain Present Pain Present Denied Pain M4 OT- IP ADL's Start: 12/13/24 14:35 Freq: Status: Active Protocol: Document 12/14/24 11:05 [facility] (Rec: 12/14/24 11:14 [facility] [id number]) OT DKM-Cbso-Cznmohq General Evaluation Self-Feeding Ability Independent OT ADL-Grooming General Evaluation Grooming Ability Independent OT ADL-Oral Care General Eval Oral Care Ability Independent OT ADL-Dressing General Eval Lower Body Dressing Ability Standby Assistance Areas Needing Assistance Underpants/Brief OT ADL-Toileting General Evaluation Toileting Ability Contact Guard Assistance Comments OT Toileting Comments Pt able to sit and urinate and CGA while standing to pull up his brief for balance. OT ADL-Bathing Comments OT Bathing Comments Pt too tired to attempt showering even though would like a shower. M5 OT- IP IADL's Start: 12/13/24 14:35 Freq: Status: Active Protocol: Document 12/13/24 14:35 [facility] (Rec: 12/13/24 14:49 CGR [id number]) OT-Instrumental Activities of Daily Living Deficits IADL Deficits Identified Deficits Home Safety Awareness Awareness of Need for Assistance at Home Decreased Awareness Medication Management Medication Management Caregiver Administers Money Management Money Management Caregiver Provides Assistance Meal Preparation Meal Preparation Caregiver Provides Assist Insurance Sales Agent Insurance Sales Agent Caregiver Provides Assist Driving Driving Comments Unsure if pt drives M6 OT- IP Functional Cognition Start: 12/13/24 14:35 Freq: Status: Active Protocol: Document 12/15/24 14:13 [facility] (Rec: 12/15/24 14:18 [facility] [id number]) Cognitive Factors Limiting Selfcare Function Cognitive Ability Level of Alertness Alert Patient Orientation Name,Age,Birthday,Month,Date, Year,Day of Week,Place, Situation Attention Span Ability Capable of Focused Attention, Capable of Sustained Attention Ability to Follow Commands Able to Follow Multi-Step Commands Memory Description No Deficits Noted Problem Solving Ability No deficits Noted Cognitive Tests SLUMS Pt scored 29/30 on the SLUMS and able to recall 4/5 objects after time passed. Pt score implies normal for cognition. Cognitive Comments Cognitive Assessment Comments Pt is very realistic that he would rather go home and states his family will be able to come together to assist him. M8 OT- IP Objective Assessments Start: 12/13/24 14:35 Freq: Status: Active Protocol: Document 12/13/24 14:35 [facility] (Rec: 12/13/24 14:49 CGR [id number]) OT Gross Range of Motion Upper Extremity Range of Motion Assessment Within Functional Limits OT Strength Upper Extremity Strength Assessment Within Functional Limits Comments Strength Comments 4/5 OT- Coordination Assessment Upper Extremity Finger to Nose Test Within Functional Limits Finger Tapping Test Within Functional Limits OT-Muscle Tone Assessment Muscle Tone WNL Yes OT Sensation Assessment Edema Edema Absent M9 OT- IP Assessment and Plan Start: 12/13/24 14:35 Freq: Status: Active Protocol: Document 12/15/24 14:13 [facility] (Rec: 12/15/24 14:18 [facility] [id number]) OT Summary Assessment and Plan Potential Rehabilitation Potential Good Analytic Complexity at Evaluation Moderate Summary OT Impairments Balance,Functional Cognition, Functional Mobility,Grooming, Dressing,Toileting,Bathing, Toilet Transfers,Shower Transfers,Activity Tolerance Progress Towards Goals Progressing Toward Goals,Slow Progress due to Medical Issues Assessment Summary Pt still on O2 and able to participate in SLUMS which was 29/30 with no cognitive deficits. Pt states would prefer to go home with family to assist and benefit from home health. Goals Self-Feeding Goal Independent Grooming Goal Independent Dressing Goal Independent Toileting Goal Independent Bathing Goal Independent Toilet Transfer Goal Independent Shower Transfer Goal Independent OT-Other Goals Pt to be able to manage O2 tubing independently. Days to Meet Goals 8 Frequency of Treatment Other frequency 5x per week Treatment Plan OT Treatment Plan ADL Training,Functional Cognition Training,Functional Mobility,Patient/Family Education,Discharge Planning Discharge Recommendations OT Discharge Recommendations Home with 02/06 Assist Available,Home Health,SNF Rehab,Home vs SNF Transportation Needs at Discharge Private Vehicle
[2024-12-15] MEDS: ALBUTEROL/IPRATROPIUM 3 ML AMPUL INH (14:29)
[2024-12-15 14:31] VITALS: O2SAT 93
--- NOTE | 2024-12-15 15:25 | PM.DS.1 ---
History of Present Illness History of Present Illness Date Patient Seen: 12/15/24 Time Patient Seen: 09:10 Chief complaint: Lethargic,DMI-hyperglycemia Narrative: CC: hyperglycemia He is looking clear eyed and overnight stocker this morning Discussed sugars with pharmacy and family will plan on discharge home with home health on Lantus 20 BID with just a sliding scale short premeal otherwise. Sending prescriptions via outside EMR for lasix 40qd, Dexcomm sensor, and referral to endocrine for insulin pump. Discharge Providers Provider Date of admission: 12/10/24 15:46 Discharge Date: 12/15/24 Primary care physician: Sulaiman Reyes MD Consults: 12/10/24 17:32 Consult to Occupational Therapy Evaluate & Treat Comment: Physician Instructions: Evaluate and treat Consult to Physical Therapy Evaluate & Treat Comment: Physician Instructions: Evaluate and Treat 12/12/24 11:34 Consult to Dietitian, Adult Routine Comment: Reason For Exam: consult to dietian, verbal from Dr. Reyes, A1c 13% 12/15/24 14:55 Consult to Home Health Routine Comment: Reason For Exam: Home health upon discharge Discharge provider: Sulaiman Reyes MD Summary Hospital Course Discharge Diagnosis: #Acute respiratory failure #Type 1 diabetes with hyperglycemia #Acute on chronic diastolic and systolic heart failure #Severe protein calorie malnutrition #caregiver role strain #Weakness #History of COPD #Hyperkalemia #Hypertension #Hyperlipidemia #BPH Hospital Course: Pleasant 84yo gentleman presented to my clinic as an outpt with cc of frequent urination. UA was unremarkable except for glucosuria. BG POCT proved to be over 600 in the office. On probing he reported being sick lately and not being able to stay on top of his diabetes medications for the last few days. 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 I had concern for this presentation for possible DKA so he was trasnferred to ED via EMS where he was found to have elevated BNP and some heart strain diastolic CHF. Although not strictly DKA he was right on the cusp with some hyperkalemia. We proceeded with gentle diuresis for several days using IV Lasix to which he responded well with decrease in BNP and meanwhile his sugars were addressed by fine tuning his insulin dosing regimen he worked with PT and felt strong enough to go home with home health by day of discharge. Need for insulin pump discussed. His blood pressure numbers here were a little soft metoprolol was discontinued and Entresto was given once daily he did better. Exam Vital Signs (past 8 hours): - 12/15/24 08:00 12/15/24 14:31 Temperature 98.2 F Pulse Rate 85 Respiratory Rate 18 Blood Pressure 116/68 Pulse Oximetry 91 93 Oxygen Delivery Method Nasal Cannula Oxygen Flow Rate 0 1 Fraction of Inspired Oxygen 21 SaO2/FiO2 Ratio 466 Oxygen Delivery Method Nasal Cannula Oxygen Flow Rate 1 Narrative Exam Narrative: sitting up in bed alert watching news Resp Other: Clear to auscultation bilaterally on room air Cardio Other: regular rate s1/s2 no pedal edema GI Other: soft nontender normal bowel sounds Neuro Other: Alert awake oriented Extrem Other: moving all limbs equally Objective Labs 12/14/24 04:43 12/14/24 04:43 [facility] Medical History (Updated 12/10/24 @ 15:20 by Flo Cabrera DO) Atrial fibrillation Myocardial infarction Ischemic cardiomyopathy Hyperlipidemia Hypertension Obesity Primary insomnia Snoring Type 2 diabetes mellitus Obstructive sleep apnea of adult Surgical History S/P implantation of automatic cardioverter/defibrillator (AICD) History of cholecystectomy History of ERCP History of partial knee replacement History of left knee replacement History of resection of pancreas History of splenectomy History of hernia repair Family History Father No problems noted. Mother Leukemia Social History household members: spouse Smoking Status: Former smoker alcohol intake: former Discharge Assessment & Plan Assessment and Plan Assessment: #Acute respiratory failure Improving likely 2/2 CHF now stable oxygenation on room air #Type 1 diabetes with hyperglycemia Extremely poor control of late with a1c 13 Plan is to discharge w3ith Dexcomm and referral to see Dejon Plascencia as outpt jordan for a pump - dexcomm script sent to [facility] via outside EMR Insulin plan is 20U long twice a day, and sliding scale premeal short otherwise. #Acute on chronic diastolic and systolic heart failure BNP trending down with lasix IV will continue lasix 40 qd po as outpatient #Severe protein calorie malnutrition #caregiver role strain Home health and close follow up #Weakness PT eval recommending SBA. Plan discussed with family. If he bounces will need SNF. #History of COPD stable on duonebs prn #Hyperkalemia stable monitor #Hypertension Improved with stopping metoprolol and giving her Entresto once daily continue as discharge plan #Hyperlipidemia Stable on current meds continue #BPH stable continue home meds MDM: son PCP: Amy diet: carb controlled Code status DNR. Discharge Plan Discharge Plan Patient Disposition: Home Health Service Provider Discharge Comment: discharge meds of lasix 40 po qd sent to [facility] via outside EMR Discharge orders & Medications Prescriptions: New sacubitril-valsartan 24-26 mg Tablet 1 tab PO 1XD Qty: 30 0RF Continued aspirin 81 MG tablet,delayed release (DR/EC) 81 mg OR QPM Qty: 0 mexiletine 150 mg capsule 150 mg PO Q8H apixaban 2.5 mg tablet 2.5 mg PO BID insulin aspart U-100 100 unit/mL solution 15 unit subcut BID Patient Comments: before meals tamsulosin 0.4 mg capsule 0.8 mg PO DAILY docusate sodium 50 mg Capsule 50 mg PO BID digoxin 125 mcg (0.125 mg) tablet 0.0125 mg PO Q OTHER DAY Rx Instructions: every other day; alternate with furosemide finasteride 5 mg tablet 5 mg PO DAILY sacubitril-valsartan [Entresto] 24-26 mg tablet 1 tab PO BID Changed insulin glargine 100 unit/mL solution 20 unit subcut BID Qty: 10 0RF Discontinued metoprolol succinate 50 mg tablet extended release 24 hr 50 mg PO BID Rx Instructions: take with 25 mg furosemide 20 mg tablet See Rx Instructions .ROUTE .COMPLEX Rx Instructions: 20 mg orally every other day with digoxin alternating metoprolol succinate [Toprol XL] 25 mg tablet extended release 24 hr 75 mg PO BID Qty: 90 0RF Follow up/Referrals: Sulaiman Reyes MD [Primary Care Provider] - Visit Report/Discharge Packet Stand Alone Forms: Patient Portal/API, Stroke Signs & Symptoms Discharge Data Primary Care Provider: Sulaiman Reyes Quality VTE Deep Vein Thrombosis/Pulmonary Embolism Present on Admission: No
--- NOTE | 2024-12-15 15:41 | CM.DPNOTE ---
DC Note Discharge home anticipated this afternoon; with family and [facility]. Patient will likely be discharging with new home O2. Emailed Silvia at [facility] F2F and HH order. No discharge order at this time; 3:42pm, Dr Reyes likely to discharge once he arrives back on the ACU this afternoon. Plan: Discharge home w/family assist, [facility], likely new home O2, family to transport. [facility] will need DC Summary sent to completed. [facility]
[2024-12-15 16:00] VITALS: BP 113/54; PULSE 86; RESP 18; TEMP 36.2; O2SAT 95
[2024-12-15 16:10] VITALS: BP 113/54; PULSE 87
[2024-12-15] MEDS: ASPIRIN EC 81 MG TABLET PO (16:10)
[2024-12-15] MEDS: DIGOXIN 0.125 MG TABLET PO (16:10)
--- NOTE | 2024-12-15 17:36 | PC.NURSE ---
Patient is A&OX4, VSS, afebrile this a.m. His a.m. metoprolol is held as well as Entresto. He denies dizziness and does not have any instances of low BP this shift. He does continue to have chest congestion and productive, persistent cough. He gets SOB after coming back from bathroom and 02 reading on RA was 88% he is placed back on NC. Per MD, ordered home 02 eval with RT for patient. He is evaluated and assessed by RT who gives nebulizer treatment this afternoon. Patient is then trialed with activity on RA and 02 sats >90%. notified, and CM notified. Patient plan to go home with HH this evening. MD returned this evening after clinic hours and reviewed discharge plan regarding home medications, BG, lantus, stopping metoprolol and changing Entresto to once daily. Patient and son at bedside acknowledge and agree with understanding of med changes and follow up appointment with MD Reyes. Patient is escorted via w/ch by RN at approximately 1720 to private vehicle with son and for discharge home this evening.
== END 2024-12-15 17:20 | disposition home health service (06) | DRG 637 ==
LOC: ED 15:25 → AC 15:47
PROVIDERS: Admitting Provider Family Medicine; Emergency Provider Student in an Organized Health Care Education/Training Program; Family Provider Internal Medicine; PCP Family Medicine; Referring Provider Student in an Organized Health Care Education/Training Program; Visit Provider Family Medicine
DX: E10.65 Type 1 diabetes mellitus with hyperglycemia (principal); E43 Unspecified severe protein-calorie malnutrition; I50.43 Acute on chronic combined systolic (congestive) and diastolic (congestive) heart failure; J96.00 Acute respiratory failure, unspecified whether with hypoxia or hypercapnia; E87.20 Acidosis, unspecified; E87.5 Hyperkalemia; I11.0 Hypertensive heart disease with heart failure; E78.5 Hyperlipidemia, unspecified; J44.9 Chronic obstructive pulmonary disease, unspecified; E10.649 Type 1 diabetes mellitus with hypoglycemia without coma; R53.1 Weakness; N40.1 Benign prostatic hyperplasia with lower urinary tract symptoms; R35.0 Frequency of micturition; I48.91 Unspecified atrial fibrillation; Z68.21 Body mass index [BMI] 21.0-21.9, adult; Z87.891 Personal history of nicotine dependence; Z66 Do not resuscitate; Z63.6 Dependent relative needing care at home; Z79.01 Long term (current) use of anticoagulants
CPT/HCPCS: 0241U; 36415; 70450; 71045; 71046; 80053; 81003; 82550; 82962; 83036; 83605; 83690; 83735; 83880; 84153; 84484; 85025; 87040; 93005; 93306; 94618; 94640; 94760; 96361; 96365; 96375; 97110; 97116; 97129; 97162; 97166; 97530; 97535; 99284; 99285; J0612; J1815; J1940

== ENCOUNTER 2025-02-14 16:53 | Emergency (ER) | payer MEDICARE, OTHER, SELFPAY ==
[2024-12-10 16:21] VITALS: BMI 21.2
[2025-02-14 16:56] VITALS: BP 136/62; PULSE 82; RESP 18; TEMP 35.9; O2SAT 98; BMI 23.1
[2025-02-14 18:12] LABS: Bacteria Urine None Seen; RBC Urine None Seen (0-5/HPF); Squamous Epithelial Cell Urine 1-5 /HPF (0-5/HPF); Urine Volume 10mL (spun); WBC Urine None Seen (0-5/HPF)
[2025-02-14 18:13] LABS: Culture Indicated Urine Cult Not Indicated
--- NOTE | 2025-02-14 18:16 | DI.US.S_ITS ---
PROCEDURE: US SCROTUM INDICATIONS: Scrotal pain TECHNIQUE: Real-time scanning was performed of the scrotum and testicles, with image documentation. Color and pulse Doppler interrogation was performed of both testicles. COMPARISON: None. FINDINGS: Right: Testicle is normal in size at 4 x 1.6 x 2.8 cm, and homogenous in echotexture. Epididymis is normal in overall size and morphology. Small to moderate right-sided hydrocele. No varicoceles. Overlying scrotal skin is normal in thickness. Left: Testicle is normal in size at 4.1 x 2.0 x 1.9 cm, and homogeneous in echotexture. Epididymis is normal in overall size and morphology. Small left hydrocele. No varicoceles. Overlying scrotal skin is normal in thickness. Doppler: Color and pulse Doppler demonstrate normal and symmetric arterial flow in both testicles. IMPRESSION: 1. No evidence of testicular torsion. No solid appearing testicular lesion. 2. Right greater than left bilateral hydrocele. Normal appearing bilateral epididymi. No varicoceles. Dictated by: Lucius Gann M.D. on 02/14/2025 at 19:57 Approved by: Lucius Gann M.D. on 02/14/2025 at 19:58
[2025-02-14] MEDS: ACETAMINOPHEN 325 MG TABLET 975 MG PO (19:22)
--- NOTE | 2025-02-14 19:30 | PC.NURSE ---
to US per @ 193
[2025-02-14 19:48] VITALS: RESP 16
[2025-02-14 20:16] VITALS: BP 133/60; PULSE 86; RESP 18; O2SAT 95
--- NOTE | 2025-02-15 17:34 | ED_ITS ---
HPI - Male Genitourinary <Pramod Holland PA-C - Last Filed: 02/15/25 17:42> General Chief complaint: Urogenital-Male Stated complaint: eye and scrotum pain Time Seen by Provider: 02/14/25 17:54 Source: patient Mode of arrival: Ambulatory History of Present Illness HPI Narrative: 84-year-old male presents to the ED with scrotal pain, feeling of tightness around the eyes for the last few days. Patient states that the scrotal pain is worse on the left side than the right side. No dysuria, urinary incontinence, urinary hesitancy. No fever, chills, chest pain, shortness of breath, nausea, vomiting, abdominal pain, lightheadedness, dizziness, syncope. Patient also complains of a feeling of tension and tightness around his eyes. Patient denies any changes in vision or pain inside the eyes. Vision is unchanged. Related Data Home Medications Medication Instructions Recorded Confirmed aspirin 81 mg tablet,delayed 81 mg OR QPM ##0 12/11/17 12/10/24 release apixaban 2.5 mg tablet 2.5 mg PO BID 11/18/18 12/10/24 insulin aspart U-100 100 unit/mL 15 unit SUBCUT BID 08/13/23 12/10/24 subcutaneous solution mexiletine 150 mg capsule 150 mg PO Q8H 08/13/23 12/10/24 tamsulosin 0.4 mg capsule 0.8 mg PO DAILY 08/13/23 12/10/24 digoxin 125 mcg (0.125 mg) tablet 0.0125 mg PO Q OTHER DAY 05/02/24 12/10/24 docusate sodium 50 mg capsule 50 mg PO BID 05/02/24 12/10/24 finasteride 5 mg tablet 5 mg PO DAILY 05/02/24 12/10/24 sacubitril 24 mg-valsartan 26 mg 1 tab PO BID 12/10/24 12/10/24 tablet (Entresto) Previous Rx's Medication Instructions Recorded insulin glargine 100 unit/mL 20 unit (0.2 mL) SUBCUT BID #10 mL 12/15/24 subcutaneous solution sacubitril 24 mg-valsartan 26 mg 1 tab PO 1XD #30 tabs 12/15/24 tablet cephalexin 500 mg capsule 500 mg PO QID 5 days #20 caps 04/07/25 Allergies Allergy/AdvReac Type Severity Reaction Status Date / Time amiodarone AdvReac Intermediate Verified 12/10/24 13:12 amoxicillin AdvReac Mild DIARRHEA Verified 12/10/24 13:12 naproxen AdvReac Mild DIARRHEA Verified 12/10/24 13:12 Review of Systems <Pramod Holland PA-C - Last Filed: 02/15/25 17:42> Constitutional Constitutional: Denies chills, Denies fatigue, Denies fever(s), Denies frequent falls, Denies lethargy and Denies weakness Eyes Eyes: Denies change in vision, Denies eye discharge, Denies irritation and Denies loss of vision Comments: feeling of tension around the eyes ENT Ears, Nose, Mouth, and Throat: Denies change in voice, Denies dizziness, Denies neck pain, Denies sore throat and Denies throat swelling Cardiovascular Cardiovascular: Denies chest pain, Denies irregular heart rhythm, Denies lightheadedness, Denies palpitations, Denies dyspnea, Denies dyspnea on exertion and Denies orthopnea Respiratory Respiratory: Denies cough, Denies dyspnea, Denies dyspnea on exertion and Denies wheezing Gastrointestinal Gastrointestinal: Denies abdominal pain, Denies change in bowel habits, Denies diarrhea, Denies nausea and Denies vomiting Genitourinary Genitourinary: Denies dysuria Comments: Scrotal pain, left greater than right Musculoskeletal Musculoskeletal: Denies neck pain and Denies numbness Integumentary/Breasts Skin/Breast: Denies pruritus, Denies erythema, Denies rash and Denies wounds Neurologic Neurologic: Denies behavioral changes, Denies confusion, Denies dizziness, Denies frequent falls, Denies loss of vision, Denies numbness and Denies weakness Psychiatric Psychiatric: Denies anxiety, Denies behavioral changes, Denies confusion, Denies depression, Denies homicidal ideation and Denies suicidal ideation Endocrine Endocrine: Denies fatigue, Denies flushing and Denies palpitations Hematologic/Lymphatic Hematologic/Lymphatic: Denies easy bruising Allergic/Immunologic Allergic/Immunologic: Denies urticaria, Denies throat swelling and Denies wheezing Patient History <Pramod Holland PA-C - Last Filed: 02/15/25 17:42> Medical History Atrial fibrillation Myocardial infarction Ischemic cardiomyopathy Hyperlipidemia Hypertension Obesity Primary insomnia Snoring Type 2 diabetes mellitus Obstructive sleep apnea of adult Surgical History S/P implantation of automatic cardioverter/defibrillator (AICD) History of cholecystectomy History of ERCP History of partial knee replacement History of left knee replacement History of resection of pancreas History of splenectomy History of hernia repair Family History Father No problems noted. Mother Leukemia Social History household members: spouse Smoking Status: Never smoker alcohol intake: former Smoking Status: Never smoker alcohol intake frequency: holidays/special occasions only Exam <Pramod Holland PA-C - Last Filed: 02/15/25 17:42> Narrative Exam Narrative: Const General:?cooperative, healthy appearing and comfortable HENMT Head:?normal to inspection Ears:?hearing grossly normal bilaterally Nose:?external nose normal Face and sinus:?normal facial exam and sinuses nontender Mouth:?oral mucosae normal Throat:?posterior oropharynx normal Eyes General:?appearance normal, both eyes and all related structures Neck Neck:?normal visual inspection and no lymphadenopathy noted Resp Effort & Inspection:?normal respiratory effort Auscultation:?clear to auscultation bilaterally Cardio Rate:?regular rate Rhythm:?regular rhythm Left scrotum appears erythematous and tender to touch. Neuro General:?patient alert, patient awake and patient oriented x3 Initial Vital Signs Initial Vital Signs: Vital Signs Temperature 96.7 F L 02/14/25 16:56 Pulse Rate 82 02/14/25 16:56 Respiratory Rate 18 02/14/25 16:56 Blood Pressure 136/62 02/14/25 16:56 Pulse Oximetry 98 02/14/25 16:56 Oxygen Delivery Method Room Air 02/14/25 16:56 <Jamar Whelan MD - Last Filed: 02/16/25 06:51> Initial Vital Signs Initial Vital Signs: Vital Signs Temperature 96.7 F L 02/14/25 16:56 Pulse Rate 82 02/14/25 16:56 Respiratory Rate 18 02/14/25 16:56 Blood Pressure 136/62 02/14/25 16:56 Pulse Oximetry 98 02/14/25 16:56 Oxygen Delivery Method Room Air 02/14/25 16:56 Course <Pramod Holland PA-C - Last Filed: 02/15/25 17:42> Orders Ordered: Discontinued Medications Acetaminophen (Acetaminophen 325 Mg Tablet) 975 mg PO NOW ONE Stop: 02/14/25 19:04 Last Admin: 02/14/25 19:22 Dose: 975 mg Documented By: SPF <Jamar Whealn MD - Last Filed: 02/16/25 06:51> Orders Ordered: Discontinued Medications Acetaminophen (Acetaminophen 325 Mg Tablet) 975 mg PO NOW ONE Stop: 02/14/25 19:04 Last Admin: 02/14/25 19:22 Dose: 975 mg Documented By: SPF MDM - Male Genitourinary <Pramod Holland PA-C - Last Filed: 02/15/25 17:42> Lab Data Labs: Lab Results 02/14/25 Range/Units 17:19 Urine RBC None seen (0-5/HPF) Urine WBC None seen (0-5/HPF) Ur Squamous Epith Cells 1-5 /hpf (0-5/HPF) Urine Bacteria None seen (None) Ur Culture Indicated? Cult not indicated Vol Urine Centrifuged 10ml (spun) Urine Dip Bedside Urine Glucose 1000 mg/dl Bedside Urine Bilirubin - Negative Bedside Urine Ketone - Negative Urine Specific [place] 1.015 Bedside Urine Occult Blood - Negative Bedside Urine pH 5.5 Bedside Urine Protein - Negative Bedside Urine Urobilinogen - Negative Bedside Urine Nitrite - Negative Bedside Urine Leukocytes - Negative Esterase [facility] Narrative Medical decision making narrative: 84-year-old male presents to the ED with scrotal pain, feeling of tightness around the eyes for the last few days. Scrotal ultrasound was obtained with no evidence of testicular torsion. No solid appearing testicular lesion. Right greater than left bilateral hydrocele. Normal-appearing bilateral epididymitis. No varicoceles. Urine was negative for a UTI. Physical exam showed erythema of the left scrotum. Possible cellulitis. Antibiotics prescribed. Patient's ice symptoms likely primary headache. Patient was given Tylenol for the headache. Recommend follow-up with PCP as soon as possible. ED return precautions discussed with patient. Patient verbalized understanding. Medical records reviewed: Yes <Jamar Whelan MD - Last Filed: 02/16/25 06:51> Lab Data Labs: Lab Results 02/14/25 Range/Units 17:19 Urine RBC None seen (0-5/HPF) Urine WBC None seen (0-5/HPF) Ur Squamous Epith Cells 1-5 /hpf (0-5/HPF) Urine Bacteria None seen (None) Ur Culture Indicated? Cult not indicated Vol Urine Centrifuged 10ml (spun) Urine Dip Bedside Urine Glucose 1000 mg/dl Bedside Urine Bilirubin - Negative Bedside Urine Ketone - Negative Urine Specific [place] 1.015 Bedside Urine Occult Blood - Negative Bedside Urine pH 5.5 Bedside Urine Protein - Negative Bedside Urine Urobilinogen - Negative Bedside Urine Nitrite - Negative Bedside Urine Leukocytes - Negative Esterase Discharge Plan Departure Patient Disposition: Home Clinical Impression: Cellulitis Qualifiers: Site of cellulitis: other site Qualified Code(s): L03.818 - Cellulitis of other sites Instructions: DI for Cellulitis -- Adult Activity Restrictions/Additional Instructions: You were evaluated in the ED today for scrotal pain. The ultrasound was normal. It is likely that you have a skin infection for which you are being prescribed an antibiotic. Please take the antibiotics as prescribed. You may take Tylenol for the headache. Please follow-up with your PCP as soon as possible. Return to the ED if you have worsening symptoms. Prescriptions: New cephalexin 500 mg capsule 500 mg PO QID 5 Days Qty: 20 0RF No Action aspirin 81 MG tablet,delayed release (DR/EC) 81 mg OR QPM Qty: 0 mexiletine 150 mg capsule 150 mg PO Q8H apixaban 2.5 mg tablet 2.5 mg PO BID insulin aspart U-100 100 unit/mL solution 15 unit subcut BID Patient Comments: before meals tamsulosin 0.4 mg capsule 0.8 mg PO DAILY docusate sodium 50 mg Capsule 50 mg PO BID digoxin 125 mcg (0.125 mg) tablet 0.0125 mg PO Q OTHER DAY Rx Instructions: every other day; alternate with furosemide finasteride 5 mg tablet 5 mg PO DAILY sacubitril-valsartan [Entresto] 24-26 mg tablet 1 tab PO BID sacubitril-valsartan 24-26 mg Tablet 1 tab PO 1XD Qty: 30 0RF insulin glargine 100 unit/mL solution 20 unit subcut BID Qty: 10 0RF Referrals: Sulaiman Reyes MD [Primary Care Provider] - Stand Alone Forms: Patient Portal/API/Survey ED Sign-out <Jamar Whelan MD - Last Filed: 02/16/25 06:51> Cosign ED Attending Cosignature Attestation: I was immediately available in the department for consultation. This documentation has been reviewed and I agree with assessment and plan. Supervised by Jamar Whelan MD
== END 2025-02-14 20:17 | disposition home or self-care (01) ==
PROVIDERS: Emergency Medicine; Emergency Provider Student in an Organized Health Care Education/Training Program; Family Provider Internal Medicine; PCP Family Medicine
DX: L03.818 Cellulitis of other sites (principal); H57.13 Ocular pain, bilateral
CPT/HCPCS: 76870; 81003; 81015; 99283; 99284

== ENCOUNTER 2025-02-17 15:03 | Emergency (ER) | payer MEDICARE, OTHER, SELFPAY ==
[2024-12-10 16:21] VITALS: BMI 21.2
[2025-02-17] VITALS (13 sets, daily range): BP systolic 112–132; BP diastolic 55–86; PULSE 47–85; RESP 16–33; TEMP 36.5–36.7; O2SAT 96–99
--- NOTE | 2025-02-17 15:25 | DI.US.S_ITS ---
PROCEDURE: US SCROTUM INDICATIONS: TENDER ?ABSCESS TECHNIQUE: Real-time scanning was performed of the scrotum and testicles, with image documentation. Color and pulse Doppler interrogation was performed of both testicles. COMPARISON: [facility], , US SCROTUM, 02/14/2025, 19:34. FINDINGS: Right: Testicle is normal in size at 4.1 x 2.5 x 1.9 cm, and heterogeneous in echotexture. Epididymis is heterogeneous. Small epididymal head cysts. Small hydrocele. No varicoceles. Overlying scrotal skin is normal in thickness. Left: Testicle is normal in size at 4.1 x 2.2 x 1.7 cm, and heterogeneous in echotexture. Epididymis is heterogeneous. Small hydrocele. No varicoceles. Overlying scrotal skin is normal in thickness. Doppler: Color and pulse Doppler demonstrate normal and symmetric arterial flow in both testicles. IMPRESSION: 1. Heterogeneous appearance of the bilateral testicles and epididymi suspicious for bilateral epididymo-orchitis, worse when compared to the ultrasound from 02/14/2025. No abscess is seen. 2. Small bilateral hydroceles. 3. No signs of testicular torsion. Approved by: Herminio Huddleston M.D. on 02/17/2025 at 17:18
--- NOTE | 2025-02-17 15:25 | DI.RAD.S_ITS ---
PROCEDURE: XR CHEST 1V INDICATIONS: suspected sepsis TECHNIQUE: One view of the chest was acquired. COMPARISON: [facility], CR, XR CHEST 2V, 12/14/2024, 8:53. FINDINGS: Surgical changes and devices: Left chest wall pacemaker leads are in the region of right atrium, right ventricle and left ventricle. Lungs and pleura: Lungs are clear. No pleural effusions or pneumothorax. Mediastinum: Mediastinal contours appear normal. Heart size is enlarged. Bones and chest wall: No suspicious bony lesions. Overlying soft tissues appear unremarkable. IMPRESSION: No acute cardiopulmonary pathology. Dictated by: Lucius Gann M.D. on 02/17/2025 at 16:49 Approved by: Lucius Gann M.D. on 02/17/2025 at 16:52
[2025-02-17 15:34] LABS: INR 1.2 (0.9-1.3); Prothrombin Time 13.2 SECONDS (9.4-12.5)
[2025-02-17 15:35] LABS: Add Manual Diff / Slide Review NO; Basophils Absolute Auto 100 /uL (0-100); Basophils Percent Auto 1.1 % (0-2); Eosinophils Absolute Auto 0 /uL (0-450); Eosinophils Percent Auto 0.4 % (2-4); Hematocrit 46.1 % (41-53); Lymphocytes Absolute Auto 2400 /uL (1100-4500); Lymphocytes Percent Auto 24.3 % (25-40); Mean Corpuscular HGB Conc 32.5 % (30-36); Mean Corpuscular Hemoglobin 31.9 PG (26-34); Mean Corpuscular Volume 98.1 fL (80-100); Monocytes Absolute Auto 1000 /uL (0-900); Monocytes Percent Auto 9.9 % (3-14); Neutrophils Absolute Auto 6400 /uL (1500-7000); Neutrophils Percent Auto 64.3 % (50-75); Platelet Count 194 X10^3/uL (150-400); Red Cell Distribution Width 14.9 % (11.6-14.8); White Blood Cell Count 9.9 X10^3/uL (4.5-11.0)
[2025-02-17 15:37] LABS: Alanine Aminotransferase 23 IU/L (<50); Albumin 4.5 g/dL (3.5-5.0); Albumin Globulin Ratio 1.6 (1.0-2.8); Alkaline Phosphatase 79 U/L (38-126); Aspartate Aminotransferase 30 IU/L (17-59); BUN Creatinine Ratio 20.7 (6-22); Bilirubin Total 0.9 mg/dL (0.2-1.3); Blood Urea Nitrogen 29 mg/dL (9-20); Calcium 9.5 mg/dL (8.4-10.2); Carbon Dioxide 26 mmol/L (22-32); Chloride 102 mmol/L (98-107); Estimated Glomerular Filt Rate 49 mL/min (>60); Globulin 2.9 g/dL (1.7-4.1); Glucose 325 mg/dL (80-110); HEMOLYSIS < 15 (0-50); Lipase 65 U/L (23-300); PTT Partial Thromboplastin Tim 36 SECONDS (25.1-36.5); Potassium 5.1 mmol/L (3.4-5.1); Sodium 138 mmol/L (137-145); Total Protein 7.4 g/dL (6.3-8.2)
[2025-02-17 15:38] LABS: Lactate (Lactic Acid) 2.9 mmol/L (0.7-2.1)
[2025-02-17] MEDS: SODIUM CHLORIDE 0.9% 1,000 ML 1000 ML IV (15:42)
[2025-02-17 15:54] LABS: Procalcitonin 0.077 ng/mL (<0.5)
[2025-02-17 16:02] LABS: Appearance Urine UA CLEAR; Bilirubin Urine UA NEGATIVE (NEGATIVE); Color Urine UA YELLOW; Glucose Urine UA 3+ g/dL (Negative); Ketones Urine UA NEGATIVE (NEGATIVE); Leukocyte Esterase Urine UA NEGATIVE (NEGATIVE); Nitrite Urine UA NEGATIVE (Negative); Occult Blood Urine UA NEGATIVE (Negative); Protein Urine UA NEGATIVE (Negative)
[2025-02-17 16:17] LABS: Amorphous Sediment Urine 1+; Bacteria Urine None Seen; Culture Indicated Urine Cult Not Indicated; RBC Urine None Seen (0-5/HPF); Squamous Epithelial Cell Urine None Seen (0-5/HPF); Urine Volume 10mL (spun); WBC Urine None Seen (0-5/HPF)
--- NOTE | 2025-02-17 16:37 | EKG_ITS ---
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
[2025-02-17 17:04] LABS: Reflexed Lactate in 2 Hours Y
--- NOTE | 2025-02-17 19:49 | ED_ITS ---
HPI - Male Genitourinary General Chief complaint: Weakness Stated complaint: Feels tingly all over Time Seen by Provider: 02/17/25 15:21 History of Present Illness HPI Narrative: 84-year-old male with a past medical history of COPD, CHF, diabetes, AICD with Eliquis, come into the ED from home for evaluation of scrotal cellulitis. He states that he has been feeling a little bit more weak/shaky secondary to this, he states that he was started on Keflex about 3 days ago for this infection. He denies any other symptoms such as headache visual disturbances chest pain shortness breath nausea vomiting abdominal pain or any other GI/ symptoms time. Related Data Home Medications Medication Instructions Recorded Confirmed aspirin 81 mg tablet,delayed 81 mg OR QPM ##0 12/11/17 12/10/24 release apixaban 2.5 mg tablet 2.5 mg PO BID 11/18/18 12/10/24 insulin aspart U-100 100 unit/mL 15 unit SUBCUT BID 08/13/23 12/10/24 subcutaneous solution mexiletine 150 mg capsule 150 mg PO Q8H 08/13/23 12/10/24 tamsulosin 0.4 mg capsule 0.8 mg PO DAILY 08/13/23 12/10/24 digoxin 125 mcg (0.125 mg) tablet 0.0125 mg PO Q OTHER DAY 05/02/24 12/10/24 docusate sodium 50 mg capsule 50 mg PO BID 05/02/24 12/10/24 finasteride 5 mg tablet 5 mg PO DAILY 05/02/24 12/10/24 sacubitril 24 mg-valsartan 26 mg 1 tab PO BID 12/10/24 12/10/24 tablet (Entresto) Previous Rx's Medication Instructions Recorded insulin glargine 100 unit/mL 20 unit (0.2 mL) SUBCUT BID #10 mL 12/15/24 subcutaneous solution sacubitril 24 mg-valsartan 26 mg 1 tab PO 1XD #30 tabs 12/15/24 tablet cephalexin 500 mg capsule 500 mg PO QID 5 days #20 caps 02/14/25 levofloxacin 500 mg tablet 500 mg PO DAILY 10 days #10 tabs 02/17/25 Allergies Allergy/AdvReac Type Severity Reaction Status Date / Time amiodarone AdvReac Intermediate Verified 12/10/24 13:12 amoxicillin AdvReac Mild DIARRHEA Verified 12/10/24 13:12 naproxen AdvReac Mild DIARRHEA Verified 12/10/24 13:12 Review of Systems Review of Systems Narrative: General: Positive chills/shaking Denies fever, weight loss HEENT: Denies headache, eye drainage, eye irritation, head trauma, sore throat, voice change Cardiovascular: Denies any chest pain, palpitations, tachycardia Respiratory: Denies any shortness of breath, cough, wheeze, stridor GI/: Positive scrotal swelling/redness/pain, Denies any abdominal pain, nausea, vomiting, diarrhea, bright red blood per rectum, melanotic stools, urinary frequency, urinary retention, dysuria, hematuria MSK: Denies any joint pain, muscle pains, swelling Skin: Denies any rashes, lesions, discoloration Neuro: Denies any headache, lightheadedness, dizziness, fainting, weakness Psych: Denies SI/HI Patient History Medical History (Updated 02/17/25 @ 20:12 by Flo Cabrera DO) Atrial fibrillation Myocardial infarction Ischemic cardiomyopathy Hyperlipidemia Hypertension Obesity Primary insomnia Snoring Type 2 diabetes mellitus Obstructive sleep apnea of adult Surgical History S/P implantation of automatic cardioverter/defibrillator (AICD) History of cholecystectomy History of ERCP History of partial knee replacement History of left knee replacement History of resection of pancreas History of splenectomy History of hernia repair Family History Father No problems noted. Mother Leukemia Social History household members: spouse alcohol intake: former alcohol intake frequency: holidays/special occasions only Exam Narrative Exam Narrative: General: Cooperative, well-developed, not in acute distress HEENT: Normocephalic, atraumatic, PERRLA, normal sclera, eyelids normal Neck: Active full range of motion, atraumatic Chest: Normal to inspection, negative crepitus, no overlying erythema ecchymosis Respiratory: Normal respiratory effort, not in acute respiratory distress, clear to auscultation bilaterally negative cough, wheeze, tachypnea, rhonchi, rales Cardiology: Regular rate rhythm negative gallop, murmur, rubs GI/: No tenderness to palpation, soft, non rigid, normal to inspection, exam: Mild erythema noted to the scrotum mild tenderness to palpation however no streaking no significant edema noted, no crepitus, MSK: Full active range of motion in all 4 extremities, atraumatic, no tenderness to palpation of any bony prominences Skin: No rashes or lesions noted Neuro: Alert awake oriented x3, moves all 4 extremities spontaneously, cranial nerves intact, able to answer all questions appropriately follows commands appropriately Psych: Cooperative, negative suicidal or homicidal ideations Initial Vital Signs Initial Vital Signs: Vital Signs Pulse Rate 47 L 02/17/25 15:14 Course Orders Ordered: ED Orders 02/17/25 15:18 Complete Blood Count AUTO DIFF Stat Comprehensive Metabolic Panel Stat Lactate (Lactic Acid) Stat Lipase Stat PTT Partial Thromboplastin Diony Stat Procalcitonin Stat Prothrombin Time INR Stat 02/17/25 15:25 US scrotum Stat XR chest 1V Stat EKG-12 Lead Stat RT Consult Eval and Treat NOW 02/17/25 15:26 Blood Culture Stat 02/17/25 15:30 Urinalysis and Microscopic Stat Ondansetron HCl (Ondansetron 4 Mg/2 Ml Inj) 4 mg IV NOW PRN PRN Reason: Nausea And Vomiting Ondansetron HCl (Ondansetron 4 Mg Odt) 4 mg SL NOW PRN PRN Reason: Nausea And Vomiting Discontinued Medications Sodium Chloride (Normal Saline 0.9%) 1,000 mls @ 1,000 mls/hr IV BOLUS ONE Stop: 02/17/25 16:24 Last Infusion: 02/17/25 16:32 Dose: Infused Documented By: Admin: 02/17/25 15:42 Dose: 1,000 mls/hr Documented By: RLS Vital Signs Vital signs: Vital Signs - 8 hr 02/17/25 15:14 02/17/25 15:18 02/17/25 15:18 Temperature Pulse Rate 47 L 85 Respiratory Rate 33 H Blood Pressure 131/61 Pulse Oximetry Oxygen Delivery Method 02/17/25 15:25 02/17/25 15:30 02/17/25 15:30 Temperature 97.7 F Pulse Rate 85 85 Respiratory Rate 20 29 H Blood Pressure 131/61 119/57 L Pulse Oximetry 96 Oxygen Delivery Method Room Air 02/17/25 16:00 02/17/25 16:00 02/17/25 16:30 Temperature Pulse Rate 85 85 Respiratory Rate 22 26 H Blood Pressure 132/60 Pulse Oximetry Oxygen Delivery Method 02/17/25 16:30 02/17/25 17:00 02/17/25 17:00 Temperature Pulse Rate 85 Respiratory Rate 28 H Blood Pressure 115/55 L 125/57 L Pulse Oximetry 96 Oxygen Delivery Method 02/17/25 17:30 02/17/25 17:30 02/17/25 18:00 Temperature Pulse Rate 85 85 Respiratory Rate 20 17 Blood Pressure 124/86 Pulse Oximetry 99 99 Oxygen Delivery Method 02/17/25 18:00 02/17/25 18:30 02/17/25 18:30 Temperature Pulse Rate 85 Respiratory Rate 17 Blood Pressure 115/57 L 112/59 L Pulse Oximetry 99 Oxygen Delivery Method 02/17/25 19:00 02/17/25 19:00 02/17/25 19:30 Temperature 98.1 F Pulse Rate 85 Respiratory Rate 16 Blood Pressure 114/56 L Pulse Oximetry 98 Oxygen Delivery Method MDM - Male Genitourinary Differential Diagnosis Differential diagnosis: Likely other (Epididymitis, orchitis, cellulitis, urinary tract infection, ACS, electrolyte abnormality) Lab Data 02/17/25 15:18 02/17/25 15:18 Labs: Lab Results 02/17/25 02/17/25 02/17/25 Range/Units 15:18 15:30 17:40 WBC 9.9 (4.5-11.0) X10^3/uL RBC 4.70 (4.5-5.9) X10^6/uL Hgb 15.0 (13.5-17.5) g/dL Hct 46.1 (41-53) % MCV 98.1 (80-100) fL MCH 31.9 (26-34) PG MCHC 32.5 (30-36) % RDW 14.9 H (11.6-14.8) % Plt Count 194 (150-400) X10^3/uL Neut % (Auto) 64.3 (50-75) % Lymph % (Auto) 24.3 L (25-40) % [place] % (Auto) 9.9 (3-14) % Eos % (Auto) 0.4 L (2-4) % Baso % (Auto) 1.1 (0-2) % Neut # (Auto) 6400 (3491-6467) /uL Lymph # (Auto) 2400 (8250-8862) /uL [place] # (Auto) 1000 H (0-900) /uL Eos # (Auto) 0 (0-450) /uL Baso # (Auto) 100 (0-100) /uL PT 13.2 H (9.4-12.5) SECONDS INR 1.2 (0.9-1.3) APTT 36 (25.1-36.5) SECONDS Sodium 138 (137-145) mmol/L Potassium 5.1 (3.4-5.1) mmol/L Chloride 102 (98-107) mmol/L Carbon Dioxide 26 (22-32) mmol/L BUN 29 H (9-20) mg/dL Creatinine 1.40 H (0.66-1.25) mg/dL Estimated GFR 49 L (>60) mL/min BUN/Creatinine Ratio 20.7 (6-22) Glucose 325 H (80-110) mg/dL Lactate 2.9 H 2.0 (0.7-2.1) mmol/L Calcium 9.5 (8.4-10.2) mg/dL Total Bilirubin 0.9 (0.2-1.3) mg/dL AST 30 (17-59) IU/L ALT 23 (<50) IU/L Alkaline Phosphatase 79 (38-126) U/L Total Protein 7.4 (6.3-8.2) g/dL Albumin 4.5 (3.5-5.0) g/dL Globulin 2.9 (1.7-4.1) g/dL Albumin/Globulin Ratio 1.6 (1.0-2.8) Lipase 65 (23-300) U/L Procalcitonin 0.077 (<0.5) ng/mL Urine Color Yellow Urine Appearance Clear Urine pH 6.0 (4.5-8.0) Ur Specific [place] 1.010 (1.000-1.035) Urine Protein Negative (Negative) Urine Glucose (UA) 3+ H (Negative) g/dL Urine Ketones Negative (NEGATIVE) Urine Occult Blood Negative (Negative) Urine Nitrate Negative (Negative) Urine Bilirubin Negative (NEGATIVE) Urine Urobilinogen 1.0 (0.2) E.U./dL Ur Leukocyte Esterase Negative (NEGATIVE) Urine RBC None seen (0-5/HPF) Urine WBC None seen (0-5/HPF) Ur Squamous Epith Cells None seen (0-5/HPF) Amorphous Sediment 1+ Urine Bacteria None seen (None) Ur Culture Indicated? Cult not indicated Vol Urine Centrifuged 10ml (spun) Imaging Data US testicle: Radiologist's Impression: [address] [address] Ultrasound Report Signed Patient: Raul Ray MR#: [id number] : 1940 Acct:[id number] Age/Sex: 84 / M Date of Service: 02/17/25 Loc: ED Accession Number: [id number] Procedure: US scrotum Ordering Provider: Jamar Whelan MD PROCEDURE: US SCROTUM INDICATIONS: TENDER ?ABSCESS TECHNIQUE: Real-time scanning was performed of the scrotum and testicles, with image documentation. Color and pulse Doppler interrogation was performed of both testicles. COMPARISON: [facility], , US SCROTUM, 02/14/2025, 19:34. FINDINGS: Right: Testicle is normal in size at 4.1 x 2.5 x 1.9 cm, and heterogeneous in echotexture. Epididymis is heterogeneous. Small epididymal head cysts. Small hydrocele. No varicoceles. Overlying scrotal skin is normal in thickness. Left: Testicle is normal in size at 4.1 x 2.2 x 1.7 cm, and heterogeneous in echotexture. Epididymis is heterogeneous. Small hydrocele. No varicoceles. Overlying scrotal skin is normal in thickness. Doppler: Color and pulse Doppler demonstrate normal and symmetric arterial flow in both testicles. IMPRESSION: 1. Heterogeneous appearance of the bilateral testicles and epididymi suspicious for bilateral epididymo-orchitis, worse when compared to the ultrasound from 02/14/2025. No abscess is seen. 2. Small bilateral hydroceles. 3. No signs of testicular torsion. [facility] Narrative Medical decision making narrative: 84-year-old male with a past medical history of AICD on Eliquis, CHF, diabetes, comes into the ED from home for evaluation of shaking and redness pain swelling to his scrotal region, states he has been on Keflex for this for the past 3 days but it is having persistent symptoms, he states he just feels ?crappy. On exam mild erythema and tenderness to palpation but no overlying streaking, no crepitus noted, Patient had lab work imaging ultrasound chest x-ray EKG performed here in the emergency department. Did obtain blood cultures given possible rigors, instructed that these will take a few days and that patient will be called if any abnormalities EKG ventricularly paced at 85 no ischemic changes noted, chest x-ray without any code cardiopulmonary abnormality, lab work unremarkable no leukocytosis, urinalysis not consistent with acute urinary tract infection, ultrasound of scrotum showing possible bilateral epididymoorchitis patient will be sent home with levofloxacin. Was instructed follow up with primary care in outpatient setting verbalized understanding of this agrees to being discharged home with outpatient follow up Discharge Plan Departure Patient Disposition: Home Clinical Impression: Acute epididymo-orchitis Instructions: Epididymitis, DI for Orchitis Activity Restrictions/Additional Instructions: Please follow up with your primary care doctor and Urology in outpatient setting Please read the discharge instructions sheet carefully and bring all papers to all doctor follow-up visits, as it may contain information that your doctor may want to see. Disease processes change and evolve, if your symptoms worsen or if you develop any new symptoms that are concerning to you please return for evaluation. Your evaluation today does not show any evidence of any life- threatening/serious illnesses requiring admission to the hospital or surgery. Please follow-up with your doctor for re-evaluation in approximately 1 day. Seek immediate medical attention for any worrisome symptoms. *If you do not have a primary care provider please contact the [facility] Resource line at [phone]. They will ask some questions about your medical history and help get you set up with a doctor in the community. Prescriptions: New levofloxacin 500 mg tablet 500 mg PO DAILY 10 Days Qty: 10 0RF No Action aspirin 81 MG tablet,delayed release (DR/EC) 81 mg OR QPM Qty: 0 mexiletine 150 mg capsule 150 mg PO Q8H apixaban 2.5 mg tablet 2.5 mg PO BID insulin aspart U-100 100 unit/mL solution 15 unit subcut BID Patient Comments: before meals cephalexin 500 mg capsule 500 mg PO QID 5 Days Qty: 20 0RF tamsulosin 0.4 mg capsule 0.8 mg PO DAILY docusate sodium 50 mg Capsule 50 mg PO BID digoxin 125 mcg (0.125 mg) tablet 0.0125 mg PO Q OTHER DAY Rx Instructions: every other day; alternate with furosemide finasteride 5 mg tablet 5 mg PO DAILY sacubitril-valsartan [Entresto] 24-26 mg tablet 1 tab PO BID sacubitril-valsartan 24-26 mg Tablet 1 tab PO 1XD Qty: 30 0RF insulin glargine 100 unit/mL solution 20 unit subcut BID Qty: 10 0RF Referrals: Feng Samano DO [Physician] - (Urology follow up if you do not have 1) Sulaiman Reyes MD [Primary Care Provider] - Stand Alone Forms: Patient Portal/API/Survey
[2025-02-17] MEDS: levoFLOXacin 250 MG TABLET 500 MG PO (20:17)
== END 2025-02-17 20:31 | disposition home or self-care (01) ==
PROVIDERS: Emergency Medicine; Emergency Provider Student in an Organized Health Care Education/Training Program; Family Provider Internal Medicine; PCP Family Medicine
DX: N45.3 Epididymo-orchitis (principal); R53.1 Weakness; Z95.810 Presence of automatic (implantable) cardiac defibrillator; Z79.01 Long term (current) use of anticoagulants
CPT/HCPCS: 36415; 71045; 76870; 80053; 81001; 83605; 83690; 84145; 85025; 85610; 85730; 87040; 93005; 99284

== ENCOUNTER → 2025-07-08 14:48 | Outpatient (CLI) | payer MEDICARE, OTHER, SELFPAY ==
[2024-12-10 16:21] VITALS: BMI 21.2
--- NOTE | 2025-07-08 14:49 | DI.ECHO.S_ITS ---
[place] [facility]---------+ [facility] : : [address] : : [place] : : [id number] : : Phone: [phone] Echocardiogram Report + + :Name: FIOR RIOS Study Date: 07/08/2025 Height: 71 in : :[facility] ReadingLocation: Weight: 145 lb : : Gender: Male BSA: 1.8 m2 : :: 1940 Age: 84 yrs BP: 132/70 mmHg: :Reason For Study: S/P MITRAL VALVE CLIP IMPLANTATION : :Ordering Physician: TAMY, : :BONILLA Performed By: Gianni Brito : :Referring: UNSPECIFIED : + + Interpretation Summary Mildly dilated left ventricle with the ejection fraction is estimated to be 40-45%. There has been no significant change since the previous exam. Akinetic basal to mid inferior wall extending into the basal to mid inferolateral wall. No significant change from the previous study. E/E' med: 27.5 The right ventricle is at the upper limits of normal in size. The right ventricular systolic function is normal. There is a pacemaker lead in the right ventricle. Right ventricular systolic function has increased since previous exam. A mitral valve clip is present. New mitral valve clip. There is mild to moderate mitral regurgitation. The mitral valve mean gradient is 2.0 mmHg. There is mild aortic regurgitation. The IVC is of normal diameter and collapses greater than 50% with a sniff. This suggests a low right atrial pressure of 3 mm Hg. There appears to be echolucent structure seen in the IVC close to the junction with the right atrium which does not has any mobility. It is not pedunculated. Likely a reflection of posterior wall of IVC in that particular section. Seen in the previous echo of December 21, 2024 as well. Does not appears to be typical thrombus or vegetation or mass. Procedure: A two-dimensional transthoracic echocardiogram with color flow and Doppler was performed. The study quality was technically good. Comparison is made with the echocardiogram of 12/21/2024. The patient has a paced rhythm. Left Ventricle: There is normal left ventricular wall thickness. The left ventricle is mildly dilated. There is no ventricular septal defect visualized. There is no thrombus. The ejection fraction is estimated to be 40-45%. There has been no significant change since the previous exam. Akinetic basal to mid inferior wall extending into the basal to mid inferolateral wall. No significant change from the previous study. Diastolic function could not be accurately assessed due to paced rhythm. E/E' med: 27.5. Right Ventricle: There is a pacemaker lead in the right ventricle. The right ventricle is at the upper limits of normal in size. The right ventricular systolic function is normal. Right ventricular systolic function has increased since previous exam. Atria: The left atrium is severely dilated. There has been no significant change since the previous study. The right atrium is moderate to severely dilated. There is no Doppler evidence for an interatrial shunt. Mitral Valve: There is mild mitral annular calcification. The mitral valve leaflets appear mildly thickened. A mitral valve clip is present. The mitral valve mean gradient is 2.0 mmHg. The mitral regurgitant jet is eccentrically directed. There is mild to moderate mitral regurgitation. Aortic Valve: The aortic valve is trileaflet. The aortic valve opens well. The aortic valve is mildly calcified. There is mild aortic regurgitation. Tricuspid Valve: The tricuspid valve is normal. There is trace tricuspid regurgitation. Pulmonic Valve: The pulmonic valve is not well visualized. Great Vessels: The aortic root is normal size. The dimensions of the ascending aorta are normal. The pulmonary is not well visualized. The IVC is of normal diameter and collapses greater than 50% with a sniff. This suggests a low right atrial pressure of 3 mm Hg. There appears to be echolucent structure seen in the IVC close to the junction with the right atrium which does not has any mobility. It is not pedunculated. Likely a reflection of posterior wall of IVC in that particular section. Seen in the previous echo of December 21, 2024 as well. Does not appears to be typical thrombus or vegetation or mass. Pericardium/ Pleura There is a small loculated pericardial effusion. There is no pleural effusion. MMode/2D Measurements & Calculations LVIDd: 5.8 cm LVOT diam: 2.0 cm LVIDs: 4.6 cm Ao root diam: 3.2 cm FS: 20.6 % asc Aorta Diam: 3.5 cm EPSS: 1.8 cm IVSd: 0.93 cm LVPWd: 0.88 cm LV nunez. diameter/BSA (cm/m^2): 3.2 LV sys. diameter/BSA (cm/m^2): 2.5 LA A2 area: 29.2 cm2 RA long axis: 6.4 cm LA A4 area: 28.9 cm2 RA area: 29.6 cm2 LA length (vol): 7.1 cm RA vol: 116.5 ml LA vol: 101.3 ml RA : 63.3 ml/m2 LA vol index: 55.1 ml/m2 IVC diam: 1.6 cm RVD1 (basal): 4.1 cm RVD2 (mid): 2.7 cm TAPSE: 2.0 cm Doppler Measurements & Calculations Ao V2 max: 137.7 cm/sec LVOT Max Joshua: 85.3 cm/sec Ao V2 mean: 92.4 cm/sec LV V1 max P.9 mmHg Ao max P.6 mmHg LV V1 VTI: 15.2 cm Ao mean P.7 mmHg (I,D): 2.1 cm2 Ao V2 VTI: 22.2 cm (V,D): 1.9 cm2 sev ratio: 0.68 indexed to BSA (cm^2/m^2): 1.2 MV E max joshua: 117.5 cm/sec TR max joshua: 225.5 cm/sec MV A max joshua: 53.5 cm/sec TR max P.3 mmHg MV E/A: 2.2 Med Peak E' Joshua: 4.3 cm/sec E/E' med: 27.5 Lat Peak E' Joshua: 5.5 cm/sec E/E' lat: 21.3 E/e' average: 24.4 MV dec time: 0.19 sec MVA(VTI): 1.7 cm2 MV V2 mean: 64.3 cm/sec SV(LVOT): 47.3 ml MV mean P.0 mmHg MV V2 VTI: 28.4 cm Reading Physician:04:30 PM
== END ==
LOC: ECHO 14:49
PROVIDERS: Family Provider Internal Medicine; PCP Family Medicine; Referring Provider Physician Assistant; Visit Provider Physician Assistant
DX: I08.0 Rheumatic disorders of both mitral and aortic valves (principal); Z98.890 Other specified postprocedural states; Z95.818 Presence of other cardiac implants and grafts; Z95.0 Presence of cardiac pacemaker
CPT/HCPCS: 93306

== ENCOUNTER 2025-07-29 19:49 | Emergency (ER) | payer MEDICARE, OTHER, SELFPAY ==
[2024-12-10 16:21] VITALS: BMI 21.2
[2025-07-29 20:05] VITALS: BP 146/66; PULSE 70; RESP 26; TEMP 36.6; O2SAT 100; BMI 20.4
--- NOTE | 2025-07-29 20:18 | ED.WOUNDLAC ---
HPI - Wound/Laceration General Chief Complaint: Wound/Laceration Stated Complaint: bleeding problem? Time Seen by Provider: 07/29/25 20:00 Source: patient Mode of arrival: Wheelchair History of Present Illness HPI narrative: 84-year-old gentleman with a history of coronary artery disease post heart catheterization with right inguinal access approximately a month ago, anticoagulated on apixaban, diabetes who comes in today because he noticed some swelling in the right groin and he is concerned that it is related to the heart catheterization site. No fevers, chills, new constipation, abdominal pain Related Data Home Medications ?Medication ?Instructions ?Recorded ?Confirmed aspirin 81 mg tablet,delayed 81 mg OR QPM ##0 12/11/17 03/08/25 release apixaban 2.5 mg tablet 2.5 mg PO BID 11/18/18 03/08/25 insulin aspart U-100 100 unit/mL 15 unit SUBCUT BID 08/13/23 03/08/25 subcutaneous solution mexiletine 150 mg capsule 150 mg PO Q8H 08/13/23 03/08/25 tamsulosin 0.4 mg capsule 0.8 mg PO DAILY 08/13/23 03/08/25 digoxin 125 mcg (0.125 mg) tablet 0.0125 mg PO Q OTHER DAY 05/02/24 03/08/25 docusate sodium 50 mg capsule 50 mg PO BID 05/02/24 03/08/25 finasteride 5 mg tablet 5 mg PO DAILY 05/02/24 03/08/25 sacubitril 24 mg-valsartan 26 mg 1 tab PO BID 12/10/24 03/08/25 tablet (Entresto) Previous Rx's ?Medication ?Instructions ?Recorded insulin glargine 100 unit/mL 20 unit (0.2 mL) SUBCUT BID #10 mL 12/15/24 subcutaneous solution sacubitril 24 mg-valsartan 26 mg 1 tab PO 1XD #30 tabs 12/15/24 tablet Allergies Allergy/AdvReac Type Severity Reaction Status Date / Time amiodarone AdvReac Intermediate Verified 07/29/25 20:05 amoxicillin AdvReac Mild DIARRHEA Verified 07/29/25 20:05 naproxen AdvReac Mild DIARRHEA Verified 07/29/25 20:05 Review of Systems Review of Systems Narrative: Pertinent positive and negative findings as per HPI Patient History Medical History (Updated 07/29/25 @ 20:21 by Danette Jennings MD) Atrial fibrillation Myocardial infarction Ischemic cardiomyopathy Hyperlipidemia Hypertension Obesity Primary insomnia Snoring Type 2 diabetes mellitus Obstructive sleep apnea of adult Surgical History S/P implantation of automatic cardioverter/defibrillator (AICD) History of cholecystectomy History of ERCP History of partial knee replacement History of left knee replacement History of resection of pancreas History of splenectomy History of hernia repair Family History Father No problems noted. Mother Leukemia Social History household members: spouse Smoking Status: Former smoker alcohol intake: former Smoking Status: Former smoker alcohol intake frequency: holidays/special occasions only Exam Initial Vital Signs Initial Vital Signs: Vital Signs Temperature 97.9 F 07/29/25 20:05 Pulse Rate 70 07/29/25 20:05 Respiratory Rate 26 H 07/29/25 20:05 Blood Pressure 146/66 H 07/29/25 20:05 Pulse Oximetry 100 07/29/25 20:05 Oxygen Delivery Method Room Air 07/29/25 20:05 General: Older appearing, somewhat unsteady but in no acute distress Respiratory: Able to speak in full sentences, no obvious respiratory distress Skin: No obvious rashes, warm and dry Groin: He has a approximately 3 cm size inguinal hernia on the right side this is easily reduced. The puncture site for the catheterization a month ago has resolved completely. No aneurysm or pseudoaneurysm appreciated Neurologic: Grossly intact no obvious asymmetries or abnormalities Psych: appropriate insight and affect, cooperative Course Vital Signs Vital signs: Vital Signs - 8 hr 07/29/25 20:05 Temperature 97.9 F Pulse Rate 70 Respiratory Rate 26 H Blood Pressure 146/66 H Pulse Oximetry 100 Oxygen Delivery Method Room Air Discharge Plan Departure Patient Disposition: Home Clinical Impression: Inguinal hernia Qualifiers: Obstruction and gangrene presence: without obstruction or gangrene Laterality: unilateral Recurrence: not specified as recurrent Qualified Code(s): K40.90 - Unilateral inguinal hernia, without obstruction or gangrene, not specified as recurrent Instructions: Groin Hernia -- Adult Activity Restrictions/Additional Instructions: Thank you for coming in today. You are right, there can be complications with blood vessels after a heart catheterization and they are in this location. Fortunately, that is not what you are experiencing. The blood vessels heal absolutely normal. You do have an inguinal hernia. It was easily reduced, it is not at risk for significant herniation or incarceration(where it gets stuck) You might consider using a hernia truss. If you look this up on [employer] it is easy to order online. It helps hold hernia in place so it is not bothering you. If you do want to have this treated, you would need surgery, he has feel free to call our surgical department, [facility] at [phone] to schedule a follow up appointment. You do not have to do anything at all about this hernia if it is not otherwise bothering you. If you find that you are getting worse or develop any new symptoms, please feel free to return to the emergency department for further evaluation. Prescriptions: No Action aspirin 81 MG tablet,delayed release (DR/EC) 81 mg OR QPM Qty: 0 mexiletine 150 mg capsule 150 mg PO Q8H apixaban 2.5 mg tablet 2.5 mg PO BID insulin aspart U-100 100 unit/mL solution 15 unit subcut BID Patient Comments: before meals tamsulosin 0.4 mg capsule 0.8 mg PO DAILY docusate sodium 50 mg Capsule 50 mg PO BID digoxin 125 mcg (0.125 mg) tablet 0.0125 mg PO Q OTHER DAY Rx Instructions: every other day; alternate with furosemide finasteride 5 mg tablet 5 mg PO DAILY sacubitril-valsartan [Entresto] 24-26 mg tablet 1 tab PO BID sacubitril-valsartan 24-26 mg Tablet 1 tab PO 1XD Qty: 30 0RF insulin glargine 100 unit/mL solution 20 unit subcut BID Qty: 10 0RF Referrals: Sulaiman Reyes MD [Primary Care Provider, Family Practice] Stand Alone Forms: Patient Portal/API
== END 2025-07-29 20:26 | disposition home or self-care (01) ==
PROVIDERS: Emergency Provider Emergency Medicine; Family Provider Internal Medicine; PCP Family Medicine
DX: K40.90 Unilateral inguinal hernia, without obstruction or gangrene, not specified as recurrent (principal)
CPT/HCPCS: 99281

== ENCOUNTER → 2025-07-30 09:55 | Outpatient (CLI) | payer MEDICARE, OTHER, SELFPAY ==
[2024-12-10 16:21] VITALS: BMI 21.2
[2025-07-30 11:35] LABS: Hematocrit 46.4 % (41-53); Hemoglobin 15.5 g/dL (13.5-17.5); Mean Corpuscular HGB Conc 33.4 % (30-36); Mean Corpuscular Hemoglobin 32.0 PG (26-34); Mean Corpuscular Volume 95.9 fL (80-100); Platelet Count 187 X10^3/uL (150-400)
[2025-07-30 11:47] LABS: Blood Urea Nitrogen 23 mg/dL (9-20); Calcium 9.1 mg/dL (8.4-10.2); Carbon Dioxide 28 mmol/L (22-32); Chloride 101 mmol/L (98-107); Estimated Glomerular Filt Rate 56 mL/min (>60); Glucose 169 mg/dL (70-99); HEMOLYSIS < 15 (0-50); Potassium 4.6 mmol/L (3.4-5.1); Sodium 137 mmol/L (137-145)
== END ==
PROVIDERS: Family Provider Internal Medicine; PCP Family Medicine; Referring Provider Internal Medicine Cardiovascular Disease; Visit Provider Internal Medicine Cardiovascular Disease
DX: Z01.812 Encounter for preprocedural laboratory examination (principal); I48.19 Other persistent atrial fibrillation
CPT/HCPCS: 36415; 80048; 85027

== ENCOUNTER → 2025-08-18 14:01 | Outpatient (CLI) | payer MEDICARE, OTHER, SELFPAY ==
[2024-12-10 16:21] VITALS: BMI 21.2
[2025-08-18 14:54] LABS: Hematocrit 42.0 % (41-53); Hemoglobin 14.0 g/dL (13.5-17.5); Mean Corpuscular HGB Conc 33.3 % (30-36); Mean Corpuscular Hemoglobin 32.4 PG (26-34); Mean Corpuscular Volume 97.2 fL (80-100); Platelet Count 191 X10^3/uL (150-400)
[2025-08-18 15:03] LABS: Hemoglobin A1C% w Est Avg Glu 8.5 % (4.0-6.0)
[2025-08-18 15:07] LABS: Alanine Aminotransferase 31 IU/L (<50); Albumin 4.1 g/dL (3.5-5.0); Albumin Globulin Ratio 1.7 (1.0-2.8); Alkaline Phosphatase 61 U/L (38-126); Blood Urea Nitrogen 21 mg/dL (9-20); Calcium 9.2 mg/dL (8.4-10.2); Carbon Dioxide 25 mmol/L (22-32); Chloride 99 mmol/L (98-107); Estimated Glomerular Filt Rate 55 mL/min (>60); Globulin 2.4 g/dL (1.7-4.1); Glucose 380 mg/dL (70-99); HEMOLYSIS < 15 (0-50); Potassium 5.0 mmol/L (3.4-5.1); Sodium 137 mmol/L (137-145); Total Protein 6.5 g/dL (6.3-8.2)
[2025-08-18 16:35] LABS: Microalbumi Creatinin Ratio Ur 84.0 ug/mg CR (<30)
== END ==
PROVIDERS: Family Provider Internal Medicine; PCP Family Medicine
DX: E11.9 Type 2 diabetes mellitus without complications (principal); Z79.4 Long term (current) use of insulin
CPT/HCPCS: 36415; 80053; 82043; 82570; 83036; 85027